=== PATIENT | male | born 1935 | race Caucasian/White ===

== ENCOUNTER 2017-05-04 17:44 | Inpatient (IN) | payer MEDICARE, OTHER ==
[2017-05-04 17:44] VITALS: BMI 31.8
--- NOTE | 2017-05-04 18:07 | ED PDOC ---
"Arrival/HPI - General Historian: Patient <Alfredo Wright - Last Filed: 05/05/17 14:46> <Mindy,IJaviersarthak - Last Filed: 05/07/17 12:51> - General Chief Complaint: Shortness Of Breath Time Seen by Provider: 05/04/17 17:47 - History of Present Illness Narrative History of Present Illness (Text): 05/04/17 18:03 82 y/o male, pmh including cad with bypass/aortic valve replacement/copd/bph/htn /dm/hyperlipidemia/pud/chf?, nkda, biba c/o shortness of breath for the past 2 days. Pt. was seen by his own pmd about 2 days ago due to the complaining of exertional shortness of breath. Pt. stated that he feels really shortness of breath upon exertional today and therefore the ambulance was call. Pt. has no chest pain or palpitation, no night sweat, no dizziness, no change in vision, no rash, mild coughing, non-smoker, no URI symptoms, no other medical or psychological complaints. (Alfredo Wright) Past Medical History - Provider Review Nursing Documentation Reviewed: Yes - Infectious Disease Hx of Infectious Diseases: None - Tetanus Immunization Tetanus Immunization: Unknown - Cardiac Hx Cardiac Disorders: Yes (Cabgx2 aortic stenosis endocarditis) Hx Angina: Yes Hx Congestive Heart Failure: Yes Hx Hypertension: Yes Hx Peripheral Edema: Yes Other/Comment: aortic stenosis, endocarditis,right ankle/foot variscosities, discoloration +2 edema - Pulmonary Hx Respiratory Disorders: Yes Hx Asthma: Yes Hx Chronic Obstructive Pulmonary Disease (COPD): Yes - Neurological Hx Neurological Disorder: Yes HX Cerebrovascular Accident: Yes Other/Comment: memory loss - HEENT Hx HEENT Disorder: Yes Hx Glaucoma: Yes - Renal Hx Renal Disorder: No - Endocrine/Metabolic Hx Endocrine Disorders: Yes Hx Diabetes Mellitus Type 2: Yes - Hematological/Oncological Hx Blood Disorders: Yes (blood transfusion) - Integumentary Hx Dermatological Disorder: No - Musculoskeletal/Rheumatological Hx Falls: Yes - Gastrointestinal Hx Gastrointestinal Disorders: Yes (CONSTIPATION) Hx Gastroesophageal Reflux: Yes - Genitourinary/Gynecological Hx Genitourinary Disorders: Yes (ERECTILE DYSFUNCTION) Hx Prostate Problems: Yes - Psychiatric Hx Psychophysiologic Disorder: Yes (MEMORY LOSS) Hx Anxiety: Yes Hx Depression: Yes Hx Substance Use: No - Past Surgical History Past Surgical History: Unable to Obtain - Surgical History Hx Cardiac Catheterization: Yes Hx Open Heart Surgery: Yes (CABG) Hx Valve Replacement: Yes (aortic valve) - Anesthesia Hx Anesthesia: Yes Hx Anesthesia Reactions: No Hx Malignant Hyperthermia: No - Suicidal Assessment Feels Threatened In Home Enviroment: No <Alfredo Wright - Last Filed: 05/05/17 14:46> Family/Social History - Physician Review Nursing Documentation Reviewed: Yes Family/Social History: Unknown Family HX Smoking Status: Never Smoked Hx Alcohol Use: No Hx Substance Use: No Hx Substance Use Treatment: No <Alfredo Wright - Last Filed: 05/05/17 14:46> Allergies/Home Meds <Alfredo Wright - Last Filed: 05/05/17 14:46> <Lilian Guillen - Last Filed: 05/07/17 12:51> Allergies/Adverse Reactions: Allergies No Known Allergies Allergy (Verified 05/04/17 17:55) Home Medications: Home Meds Medication Instructions Recorded Confirmed Albuterol Sulfate [Proair Hfa] 0.09 mg IH PRN PRN 05/04/17 05/04/17 Aspirin [Lo-Dose Aspirin EC] 81 mg PO DAILY 05/04/17 05/04/17 Atorvastatin [Lipitor] 40 mg PO HS 05/04/17 05/04/17 Clopidogrel [Plavix] 75 mg PO HS 05/04/17 05/04/17 Esomeprazole Magnesium [Nexium] 40 mg PO DAILY 05/04/17 05/04/17 Fluoxetine HCl 40 mg PO DAILY 05/04/17 05/04/17 Gabapentin [Neurontin] 300 mg PO HS 05/04/17 05/04/17 Latanoprost 0.005% Opht [Xalatan 1 drop HS 05/04/17 05/04/17 Opht] Metformin HCl [Glucophage] 850 mg PO BID 05/04/17 05/04/17 Mirtazapine [Remeron] 15 mg PO DAILY 05/04/17 05/04/17 Montelukast Sodium [Singulair] 10 mg PO HS 05/04/17 05/04/17 Mv,Min10/Folic Acid/D3/Ala/Lut 1 tab PO DAILY 05/04/17 05/04/17 [Strovite One Caplet] Niacinamide [Niacin] 500 mg PO BID 05/04/17 05/04/17 [id number]-8-[id number] Ethyl Esters 1 GM 2 gm PO DAILY 05/04/17 05/04/17 [Lovaza] Potassium Chloride [K-Tab ER] 10 meq PO DAILY 05/04/17 05/04/17 Zolpidem Tartrate [Ambien] 10 mg PO HS 05/04/17 05/04/17 Furosemide [Lasix] 20 mg PO 2XW 05/07/17 05/07/17 Review of Systems - Review of Systems Constitutional: absent: Fatigue, Fevers Eyes: absent: Vision Changes ENT: absent: Hearing Changes Respiratory: SOB. absent: Cough, Sputum, Wheezing Cardiovascular: absent: Chest Pain Gastrointestinal: absent: Abdominal Pain, Nausea, Vomiting Musculoskeletal: absent: Arthralgias, Back Pain Skin: absent: Rash, Skin Lesions Neurological: absent: Headache, Dizziness Psychiatric: absent: Anxiety, Depression, Suicidal Ideation <Alfredo Wright Q - Last Filed: 05/05/17 14:46> Physical Exam Vital Signs Reviewed: Yes Temperature: Afebrile Blood Pressure: Normal Pulse: Regular Respiratory Rate: Normal Appearance: Positive for: Well-Appearing, Non-Toxic Pain Distress: None Mental Status: Positive for: Alert and Oriented X 3 - Systems Exam Head: Present: Atraumatic, Normocephalic Pupils: Present: PERRL Extroacular Muscles: Present: EOMI Conjunctiva: Present: Normal Mouth: Present: Moist Mucous Membranes Neck: Present: Normal Range of Motion Respiratory/Chest: Present: Clear to Auscultation, Good Air Exchange, Rales. No : Respiratory Distress, Accessory Muscle Use, Wheezes, Decreased Breath Sounds, Retracting, Rhonchi Cardiovascular: Present: Regular Rate and Rhythm, Normal S1, S2, Other (1+ pedal edema noted bilaterally, there is dark brown skin pigmentation appear to be venuous insufficiency noted on the LLE. ). No: Murmurs Abdomen: Present: Normal Bowel Sounds. No: Tenderness, Distention, Peritoneal Signs, Rebound, Guarding Back: Present: Normal Inspection Upper Extremity: Present: Normal Inspection. No: Cyanosis, Edema Lower Extremity: Present: Normal Inspection. No: Edema Neurological: Present: GCS=15, Speech Normal, Motor Func Grossly Intact, Gait Normal, Memory Normal Skin: Present: Warm, Dry, Normal Color. No: Rashes Lymphatic: No: Cervical Adenopathy Psychiatric: Present: Alert, Oriented x 3, Normal Insight, Normal Concentration <Alfredo Wright Q - Last Filed: 05/05/17 14:46> Vital Signs Temp Pulse Resp BP Pulse Ox 05/05/17 00:00 97.8 F 79 19 125/50 L 98 05/04/17 22:57 98 F 75 18 105/48 L 99 05/04/17 19:42 77 18 105/53 L 99 05/04/17 18:30 16 05/04/17 17:53 97.8 F 93 H 18 111/59 L 100 Medical Decision Making - Lab Interpretations Interpretation: Abnormal lab values (Bun 26, Mag 1.3, BNP 2230) - RAD Interpretation Management Trainer: Radiologist - EKG Interpretation Interpreted by ED Physician: Yes Type: 12 lead EKG <Alfredo Wright Q - Last Filed: 05/05/17 14:46> <Lilian Guillen - Last Filed: 05/07/17 12:51> ED Course and Treatment: 05/04/17 18:08 -labs/troponin/BNP/ua -EKG -CT angiogram -Bilateral lower extremities venuous doppler -Nasal cannula 4L oxygen/aspirin 325mg po -observe and reassess 05/04/17 20:38 -EKG: NSR @ 84 BPM, no ST elevation or depression, T wave inversion on the lead V1-V2. -Bilateral lower extremities venuos doppler: as per preliminary report, no acute DVT -CT Angiogram: - Bilateral pleural effusions. Otherwise, no evidence of significant acute process. No evidence of pulmonary embolism. Cardiomegaly, with evidence of prior cardiac surgery and findings suggestive of underlying pulmonary hypertension. - Mild mediastinal lymphadenopathy. This is a nonspecific finding, with no evidence of diffuse lymphadenopathy. Consider followup. -Labs are non-significant except Bun 26 (mildly dehydrated, will oral hydrate), Magnesium 1.3 (Magnesium sulfate 1gm IV ordered), BNP 2230 from 3810 @ 2013 (BP on the lower end, asymptomatic on rest but SOB on exertional). -Pt. has chronic copd, will add 1 dose of duoneb and 125mg Solumedrol. However , this is likely CHF. -Case discussed with DR. Guillen including all labs/radiology result, agreed on the treatment and admission 05/04/17 22:57 -I spoke to Dr. Booker, discussed about the case/labs/radiology results and vital signs, agreed on the treatment and admission, hold lasix since he is asymptomatic on rest, request Dr. Sosa for routine culture, admit to tele. -I discussed with Dr. Guillen and he agreed on the admission order. Will put in admission order since he is off shift. (Alfredo Wright) - Lab Interpretations Lab Results: 05/04/17 18:15 05/04/17 18:15 Lab Results 05/04/17 18:15: Sodium 140, Potassium 4.2, Chloride 103, Carbon Dioxide 28, Anion Gap 13, BUN 26 H, Creatinine 1.1, Est GFR ( Amer) > 60, Est GFR ( Non-Af Amer) > 60, Random Glucose 114 H, Calcium 9.5, Magnesium 1.3 L, Total Bilirubin 0.9, AST 57, ALT 75 H, Alkaline Phosphatase 109, Lactate Dehydrogenase 590, Total Creatine Kinase 59, Troponin I < 0.01, NT-Pro-B Natriuret Pep 2230 H, Total Protein 6.5, Albumin 3.5, Globulin 3.0, Albumin/ Globulin Ratio 1.2 05/04/17 18:15: WBC 3.4 L D, RBC 3.62, Hgb 11.6 L, Hct 34.7 L, MCV 95.9, MCH 32.0, MCHC 33.4, RDW 13.9, Plt Count 154, MPV 11.0, Gran % 46.6 L, Lymph % (Auto ) 29.7, [place] % (Auto) 18.4 H, Eos % (Auto) 4.1, Baso % (Auto) 1.2, Gran # 1.60, Lymph # 1.0 L, [place] # 0.6, Eos # 0.1, Baso # 0.04 - RAD Interpretation Radiology Orders: 05/04/17 18:01 ANGIO CHEST PE PROTOCOL [CT] Stat 05/04/17 18:04 DUPLEX LOWER EXTRM VEIN BILAT [US] Stat Bilateral lower extremities venuos doppler: as per preliminary report, no acute DVT ----- CT Angiogram: No relevant prior studies available. FINDINGS: LIMITATIONS: Mild to moderate respiratory motion artifact. PULMONARY ARTERIES: Main pulmonary artery segment is enlarged, a finding which can be seen with pulmonary hypertension. Recommend clinical correlation. Exam is somewhat limited for the detection of pulmonary emboli secondary to motion artifact. Allowing for this, no definite pulmonary emboli are seen. AORTA: Exam is nondiagnostic for the detection of aortic dissection because of suboptimal enhancement of the aorta. LUNGS: Small amount of consolidation the left lung base, abutting the pleural effusion, most likely representing compressive atelectasis. Minimal scarring and emphysematous changes in the lung apices. No evidence of diffuse pulmonary vascular congestion. Patent large airways. AZIZA FRANKLIN | Final Radiology Report CONFIDENTIALITY STATEMENT This report is intended only for use by the referring physician, and only in accordance with law. If you received this in error, call [phone]. Page 2 of 2 PLEURAL SPACE: Bilateral pleural effusions, small to moderate in size. No pneumothorax is seen. HEART: Heart appears moderately enlarged. Retained epicardial pacing wires noted. Sternotomy wires and multiple mediastinal surgical clips noted, most likely from prior CABG. Prosthetic cardiac valve is in place. Coronary artery calcification. No evidence of significant pericardial effusion. BONES/JOINTS: No acute bony abnormality identified. SOFT TISSUES: No acute abnormality of the visualized soft tissues seen. LYMPH NODES: Mild mediastinal lymphadenopathy. The largest lymph node, in the subcarinal region, measures 3.5 x 2 cm. No evidence of significant axillary, hilar, or upper abdominal lymphadenopathy.. GALLBLADDER AND BILE DUCTS: Gallstones incidentally noted. No CT evidence of acute cholecystitis. IMPRESSION: - Bilateral pleural effusions. - Otherwise, no evidence of significant acute process. No evidence of pulmonary embolism. - Cardiomegaly, with evidence of prior cardiac surgery and findings suggestive of underlying pulmonary hypertension. - Mild mediastinal lymphadenopathy. This is a nonspecific finding, with no evidence of diffuse lymphadenopathy. Consider followup. - See above for remaining findings. Thank you for allowing us to participate in the care of your patient. Dictated and Authenticated by: Josephine Carmona MD 05/04/2017 8:50 PM Eastern Time ([place] & [place]) (Alfredo Wright) - EKG Interpretation EKG Interpretation (Text): 05/04/17 18:10 -EKG: NSR @ 84 BPM, no ST elevation or depression, T wave inversion on the lead V1-V2. (Alfredo Wright) - Medication Orders Current Medication Orders: Aspirin (Ecotrin) 81 mg PO DAILY [facility] Last Admin: 05/06/17 13:02 Dose: 81 mg Atorvastatin Calcium (Lipitor) 40 mg PO HS [facility] Last Admin: 05/06/17 21:50 Dose: 40 mg Bisacodyl (Dulcolax) 5 mg PO DAILY PRN PRN Reason: Constipation Clopidogrel Bisulfate (Plavix) 75 mg PO HS [facility] Last Admin: 05/06/17 21:50 Dose: 75 mg Clotrimazole (Lotrimin 1%) 0 gm TOP BID [facility] Last Admin: 05/06/17 18:25 Dose: Enoxaparin Sodium (Lovenox) 40 mg SC DAILY [facility] PRN Reason: Protocol Last Admin: 05/06/17 13:04 Dose: 40 mg Subcutaneous Administrations Document 05/06/17 13:04 (Rec: 05/06/17 13:04 [id number]) Charges for Administration # of Subcutaneous Administrations 1 Fluoxetine HCl (Prozac) 40 mg PO DAILY [facility] Last Admin: 05/06/17 13:02 Dose: 40 mg Furosemide (Lasix) 40 mg IV BID [facility] Last Admin: 05/06/17 18:01 Dose: 40 mg eMAR Start Stop Document 05/06/17 18:01 (Rec: 05/06/17 18:03 [id number]) Intravenous Solution Start Date 05/06/17 Start Time 18:03 End Date 05/06/17 End time 18:03 Total Infusion Time 0 MAR Blood Pressure Document 05/06/17 18:01 (Rec: 05/06/17 18:03 [id number]) Blood Pressure Blood Pressure (100/60-150/90) 108/59 Gabapentin (Neurontin) 300 mg PO HS [facility] PRN Reason: Protocol Last Admin: 05/06/17 21:50 Dose: 300 mg Behavioural Document 05/06/17 21:50 GC (Rec: 05/06/17 21:50 [id number] Maintenance Maintenance Dose Yes Nonmedicinal Nonmedicinal Interventions Redirect Therapeutic Communication Activity Behavior Behavior for Medication: Anxiety Re-Assess: Reassess Psych Meds Document 05/06/17 22:50 GC (Rec: 05/06/17 23:46 GC [id number]) Reassess Psych Med Effective Insulin Detemir (Levemir) 10 unit SC [facility] Last Admin: 05/06/17 22:18 Dose: Not Given Non-Admin Reason: Patient Refused MAR Blood Glucose Document 05/06/17 22:18 GC (Rec: 05/06/17 22:18 [id number] Blood Glucose Finger Stick Blood Glucose (70-120) 145 Insulin Human Regular (Humulin R) 0 units SC [facility] PRN Reason: Protocol Last Admin: 05/07/17 08:52 Dose: Not Given Non-Admin Reason: Blood Sugar Parameter [facility] Blood Glucose Document 05/07/17 08:52 (Rec: 05/07/17 08:52 [id number] Blood Glucose Finger Stick Blood Glucose (70-120) 125 Latanoprost (Xalatan Opht) 1 ml OU [facility] Last Admin: 05/06/17 21:50 Dose: 1 ml Levalbuterol HCl (Xopenex) 0.63 mg IH [id number] [facility] Last Admin: 05/07/17 08:31 Dose: 0.63 mg Lisinopril (Zestril) 2.5 mg PO DAILY [facility] Last Admin: 05/06/17 13:08 Dose: 2.5 mg [facility] Pulse and Blood Pressure Document 05/06/17 13:08 (Rec: 05/06/17 13:08 [id number] Pulse Pulse Rate (60-90) 87 Blood Pressure Blood Pressure (100/60-150/90) 118/54 Metformin HCl (Glucophage) 850 mg PO BID [facility] Last Admin: 05/06/17 18:00 Dose: 850 mg Mirtazapine (Remeron) 15 mg PO DAILY [facility] Last Admin: 05/06/17 13:05 Dose: 15 mg Montelukast Sodium (Singulair) 10 mg PO [facility] Last Admin: 05/06/17 21:50 Dose: 10 mg Non-Formulary Medication (Mv,Min10/Folic Acid/D3/Ala/Lut [Strovite One Caplet]) 1 tab PO DAILY [facility] Last Admin: 05/06/17 13:05 Dose: Non-Formulary Medication (Niacinamide [Niacin]) 500 mg PO BID [facility] Last Admin: 05/06/17 17:55 Dose: [id number] Ethyl Esters (Lovaza) 2 gm PO DAILY [facility] Last Admin: 05/06/17 13:03 Dose: 2 gm Pantoprazole Sodium (Protonix Ec Tab) 40 mg PO 0600 [facility] Last Admin: 05/07/17 04:59 Dose: 40 mg Potassium Chloride (Klor-Con 10) 10 meq PO DAILY [facility] Last Admin: 05/05/17 11:20 Dose: Zolpidem Tartrate (Ambien) 5 mg PO HS PRN PRN Reason: Insomnia Discontinued Medications Albuterol/Ipratropium (Duoneb 3 Mg/0.5 Mg (3 Ml) Ud) 3 ml IH STAT STA Stop: 05/04/17 21:11 Last Admin: 05/04/17 23:28 Dose: 3 ml Bisacodyl (Dulcolax) 5 mg PO ONCE ONE Stop: 05/06/17 12:05 Last Admin: 05/06/17 13:15 Dose: Bisacodyl (Dulcolax) 5 mg PO ONCE ONE Stop: 05/06/17 12:09 Last Admin: 05/06/17 13:02 Dose: 5 mg Furosemide (Lasix) 20 mg IVP DAILY [facility] Furosemide (Lasix) 20 mg IVP DAILY [facility] Last Admin: 05/05/17 11:21 Dose: Furosemide (Lasix) 20 mg IVP STAT STA Stop: 05/05/17 09:21 Last Admin: 05/05/17 10:16 Dose: 20 mg MAR Blood Pressure Document 05/05/17 10:16 JEROD (Rec: 05/05/17 10:17 JEROD [id number]) Blood Pressure Blood Pressure (100/60-150/90) 109/46 IVP Administration Document 05/05/17 10:16 JEROD (Rec: 05/05/17 10:17 JEROD [id number]) Charges for Administration # of IVP Administrations 1 Furosemide (Lasix) 40 mg IVP STAT STA Stop: 05/05/17 12:38 Last Admin: 05/05/17 13:42 Dose: 40 mg MAR Blood Pressure Document 05/05/17 13:42 JEROD (Rec: 05/05/17 13:43 JEROD [id number]) Blood Pressure Blood Pressure (100/60-150/90) 124/56 IVP Administration Document 05/05/17 13:42 JEROD (Rec: 05/05/17 13:43 JEROD [id number]) Charges for Administration # of IVP Administrations 1 Magnesium Sulfate/Dextrose (Magnesium Sulfate 1 Gm/100 Ml D5w) 1 gm in 100 mls @ 100 mls/hr IVPB ONCE ONE Stop: 05/04/17 21:16 Last Admin: 05/04/17 20:49 Dose: 100 mls/hr eMAR Start Stop Document 05/04/17 20:49 HI (Rec: 05/04/17 20:49 HI [id number]) Intravenous Solution Start Date 05/04/17 Start Time 20:49 Insulin Detemir (Levemir) 10 unit SC BID [facility] Last Admin: 05/05/17 22:20 Dose: Levalbuterol HCl (Xopenex) 0.63 mg IH QID [facility] Last Admin: 05/05/17 11:43 Dose: 0.63 mg Methylprednisolone (Solu-Medrol) 125 mg IVP STAT STA Stop: 05/04/17 21:10 Last Admin: 05/04/17 23:28 Dose: 125 mg IVP Administration Document 05/04/17 23:28 HI (Rec: 05/04/17 23:28 [facility] [id number]) Charges for Administration # of IVP Administrations 1 Sodium Polystyrene Sulfonate (Kayexalate Susp) 30 gm PO ONCE ONE Stop: 05/05/17 10:45 Last Admin: 05/05/17 12:00 Dose: Zolpidem Tartrate (Ambien) 10 mg PO HS [facility] PRN Reason: Protocol - PA / BEHAVIORAL SPECIALIST / Resident Statement / has reviewed & agrees with the documentation as recorded. <Alfredo Wright - Last Filed: 05/05/17 14:46> - PA / BEHAVIORAL SPECIALIST / Resident Statement / has reviewed & agrees with the documentation as recorded. <Lilian Guillen - Last Filed: 05/07/17 12:51> Disposition/Present on Arrival - Present on Arrival Any Indicators Present on Arrival: No History of DVT/PE: No History of Uncontrolled Diabetes: No Urinary Catheter: No History of Decub. Ulcer: No History Surgical Site Infection Following: None - Disposition Have Diagnosis and Disposition been Completed?: Yes Disposition Time: 20:40 Patient Plan: Admission, Telemetry <Alfredo Wright - Last Filed: 05/05/17 14:46> <Lilian Guillen - Last Filed: 05/07/17 12:51> - Disposition Diagnosis: CHF (congestive heart failure), Hypomagnesemia, Shortness of breath on exertion , Pleural effusion Disposition: HOSPITALIZED Patient Problems: Current Active Problems Problem Status Onset CHF (congestive heart failure) Acute Hypomagnesemia Acute Pleural effusion Acute Shortness of breath on exertion Acute Condition: GUARDED"
[2017-05-04 18:25] LABS: BASO # 0.04 K/mm3 (0.0-2.0); BASO % 1.2 % (0.0-3.0); EOS # 0.1 (0.0-0.7); EOS % 4.1 % (1.5-5.0); GRAN # 1.6 (1.4-6.5); GRAN % 46.6 % (50.0-68.0); HEMATOCRIT 34.7 % (42.0-52.0); LYMPH % 29.7 % (22.0-35.0); MEAN CELL VOLUME 95.9 fl (80.0-105.0); MEAN CORPUSCULAR HGB CONC 33.4 g/dl (31.0-37.0); MONO # 0.6 (0.1-0.6); MONO % 18.4 % (1.0-6.0); RED CELL DISTRIBUTION WIDTH 13.9 % (11.5-14.5); WHITE BLOOD COUNT 3.4 10^3/ul (4.5-11.0)
[2017-05-04 18:42] LABS: ALB/GLOB RATIO 1.2 (1.1-1.8); ALKALINE PHOSPHATASE 109 U/L (38-126); ALT/SGPT 75 U/L (7-56); AST/SGOT 57 U/L (17-59); BILIRUBIN,TOTAL 0.9 mg/dL (0.2-1.3); BLOOD UREA NITROGEN 26 mg/dL (7-21); CALCIUM 9.5 mg/dL (8.4-10.5); CARBON DIOXIDE 28 mmol/L (21-33); CHLORIDE 103 mmol/L (98-107); GFR AFRICAN-AMERICAN > 60; GLUCOSE,RANDOM 114 mg/dL (70-110); TOTAL PROTEIN 6.5 g/dL (5.8-8.3)
[2017-05-04 19:02] LABS: SODIUM 140 mmol/L (132-148)
[2017-05-04 19:03] LABS: POTASSIUM 4.2 mmol/L (3.6-5.0)
[2017-05-04] MEDS ORDERED: Iodixanol 320 MG/ML 100 ML BOTTLE IV ONE (19:07)
[2017-05-04 19:20] LABS: MAGNESIUM 1.3 mg/dL (1.7-2.2)
[2017-05-04 19:48] LABS: TROPONIN I < 0.01 ng/mL
[2017-05-04] MEDS ORDERED: Magnesium Sulfate 1 gm in D5W 1 GM/100 ML BAG IVPB ONE (20:17)
--- NOTE | 2017-05-04 20:50 | CT ---
EXAM: CT Angiography Chest With Intravenous Contrast EXAM DATE/TIME: 05/04/2017 6:01 PM CLINICAL HISTORY: 82 years old, male; Signs and symptoms; Shortness of breath; Additional info: Shortness of breath. R/O p. E TECHNIQUE: Axial computed tomographic angiography images of the chest with intravenous contrast using pulmonary embolism protocol. All CT scans at this facility use one or more dose reduction techniques, viz.: automated exposure control; ma/kV adjustment in patient size (including targeted exams where dose is matched to indication; i.e. head); or iterative reconstruction technique. MIP reconstructed images were created and reviewed. Coronal and sagittal reformatted images were created and reviewed. CONTRAST: 100 mL of [id number] administered intravenously. COMPARISON: No relevant prior studies available. FINDINGS: LIMITATIONS: Mild to moderate respiratory motion artifact. PULMONARY ARTERIES: Main pulmonary artery segment is enlarged, a finding which can be seen with pulmonary hypertension. Recommend clinical correlation. Exam is somewhat limited for the detection of pulmonary emboli secondary to motion artifact. Allowing for this, no definite pulmonary emboli are seen. AORTA: Exam is nondiagnostic for the detection of aortic dissection because of suboptimal enhancement of the aorta. LUNGS: Small amount of consolidation the left lung base, abutting the pleural effusion, most likely representing compressive atelectasis. Minimal scarring and emphysematous changes in the lung apices. No evidence of diffuse pulmonary vascular congestion. Patent large airways. PLEURAL SPACE: Bilateral pleural effusions, small to moderate in size. No pneumothorax is seen. HEART: Heart appears moderately enlarged. Retained epicardial pacing wires noted. Sternotomy wires and multiple mediastinal surgical clips noted, most likely from prior CABG. Prosthetic cardiac valve is in place. Coronary artery calcification. No evidence of significant pericardial effusion. BONES/JOINTS: No acute bony abnormality identified. SOFT TISSUES: No acute abnormality of the visualized soft tissues seen. LYMPH NODES: Mild mediastinal lymphadenopathy. The largest lymph node, in the subcarinal region, measures 3.5 x 2 cm. No evidence of significant axillary, hilar, or upper abdominal lymphadenopathy.. GALLBLADDER AND BILE DUCTS: Gallstones incidentally noted. No CT evidence of acute cholecystitis. IMPRESSION: - Bilateral pleural effusions. - Otherwise, no evidence of significant acute process. No evidence of pulmonary embolism. - Cardiomegaly, with evidence of prior cardiac surgery and findings suggestive of underlying pulmonary hypertension. - Mild mediastinal lymphadenopathy. This is a nonspecific finding, with no evidence of diffuse lymphadenopathy. Consider followup. - See above for remaining findings.
[2017-05-04] MEDS ORDERED: Albuterol-Ipratrop 3 mg / 0.5 (3 ml) UD IH STA (21:10)
--- NOTE | 2017-05-05 08:53 | US ---
HISTORY: Leg pain and swelling. Evaluate for DVT PHYSICIAN(S): Santos Johansen MD. TECHNIQUE: Duplex sonography and color-flow Doppler with graded compression were used to evaluate the deep venous systems of both lower extremities. FINDINGS: The visualized deep venous systems of both lower extremities are sonographically normal and compressible. Normal wave forms and augmentation are seen. There is no sonographic evidence for deep venous thrombosis in the visualized segments of both lower extremities. IMPRESSION: No sonographic evidence for deep venous thrombosis in the visualized segments of both lower extremities.
[2017-05-05 09:40] LABS: GRAN # 2.28 (1.4-6.5); GRAN % 84.8 % (50.0-68.0); HEMATOCRIT 37.9 % (42.0-52.0); LYMPH # 0.4 (1.2-3.4); LYMPH % 14.1 % (22.0-35.0); MEAN CELL VOLUME 95.7 fl (80.0-105.0); MEAN CORPUSCULAR HEMOGLOBIN 32.1 pg (25.0-35.0); MEAN CORPUSCULAR HGB CONC 33.5 g/dl (31.0-37.0); MEAN PLATELET VOLUME 11.3 fl (7.0-11.0); MONO % 1.1 % (1.0-6.0); RED CELL DISTRIBUTION WIDTH 13.8 % (11.5-14.5)
[2017-05-05 09:48] LABS: WHITE BLOOD COUNT 2.7 10^3/ul (4.5-11.0)
[2017-05-05 09:59] LABS: BLOOD UREA NITROGEN 28 mg/dL (7-21); CALCIUM 9.6 mg/dL (8.4-10.5); CARBON DIOXIDE 29 mmol/L (21-33); CHLORIDE 102 mmol/L (98-107); GFR AFRICAN-AMERICAN > 60; POTASSIUM 5.1 mmol/L (3.6-5.0); SODIUM 140 mmol/L (132-148); TROPONIN I < 0.01 ng/mL
[2017-05-05] MEDS ORDERED: D3 PO SCH (10:00)
[2017-05-05] MEDS ORDERED: LUT PO SCH (10:00)
[2017-05-05] MEDS ORDERED: MV MIN10 PO SCH (10:00)
[2017-05-05] MEDS ORDERED: NIACINAMIDE 500 MG PO SCH (10:00)
[2017-05-05] MEDS ORDERED: FOLIC ACID PO SCH (10:00)
[2017-05-05] MEDS ORDERED: Potassium Chloride 10 mEq ER Tab PO SCH (10:00)
[2017-05-05] MEDS ORDERED: ALA PO SCH (10:00)
[2017-05-05 10:15] LABS: GLUCOSE,RANDOM 303 mg/dL (70-110)
[2017-05-05] MEDS: Enoxaparin 40 mg Syringe SC SCH (10:18)
[2017-05-05 10:37] LABS: ALB/GLOB RATIO 1.2 (1.1-1.8); ALKALINE PHOSPHATASE 131 U/L (38-126); ALT/SGPT 71 U/L (7-56); AST/SGOT 54 U/L (17-59); BILIRUBIN,TOTAL 1.2 mg/dL (0.2-1.3); MAGNESIUM 1.7 mg/dL (1.7-2.2)
[2017-05-05] MEDS ORDERED: Sod Polystyrene Sulf 15 gm/60 ml Susp PO ONE (10:44)
[2017-05-05] MEDS: NIACINAMIDE 500 MG PO SCH ×2 (11:00→17:35)
[2017-05-05] MEDS: Levalbuterol 0.63 MG/3 ML Inhal Soln UD IH SCH ×4 (11:37→19:43)
[2017-05-05] MEDS: LUT PO SCH (12:00)
[2017-05-05] MEDS: FOLIC ACID PO SCH (12:00)
[2017-05-05] MEDS: D3 PO SCH (12:00)
[2017-05-05] MEDS: MV MIN10 PO SCH (12:00)
[2017-05-05] MEDS: ALA PO SCH (12:00)
[2017-05-05] MEDS: Omega-3-Acid Ethyl Esters 1 GM Cap PO SCH (12:05)
[2017-05-05] MEDS: Insulin Regular 1 UNITS/0.01 ML ML SC SCH ×4 (12:10→22:01)
--- NOTE | 2017-05-05 14:34 | CT ---
PROCEDURE: CT HEAD WITHOUT CONTRAST. HISTORY: syncope COMPARISON: Unenhanced head CT exams 09/01/2012 and 05/11/2014. TECHNIQUE: Axial computed tomography images were obtained through the head/brain without intravenous contrast. Radiation dose: Total exam DLP = 678.13 mGy-cm. This CT exam was performed using one or more of the following dose reduction techniques: Automated exposure control, adjustment of the mA and/or kV according to patient size, and/or use of iterative reconstruction technique. FINDINGS: HEMORRHAGE: No intracranial hemorrhage. BRAIN: Diffuse cerebral atrophy and chronic microangiopathy are reiterated, with microangiopathy pattern potentially slightly increased. No mass is identified or suspicious extra-axial fluid collection in the midline brain and appears diffusely unremarkable nevertheless. Posterior fossa contents remain unremarkable including the brainstem. A punctate granuloma seen at the left frontal vertex once again as compared prior head CT 09/01/2012, partially volume averaged out of the upper brain and head CT 05/11/2014. VENTRICLES: Unremarkable. No hydrocephalus. CALVARIUM: Unremarkable. PARANASAL SINUSES: Unremarkable as visualized. No significant inflammatory changes. MASTOID AIR CELLS: Unremarkable as visualized. No inflammatory changes. OTHER FINDINGS: None. IMPRESSION: No definite acute intracranial findings by standard CT criteria. Follow-up CT or MRI can be performed as clinically warranted. Marginally increased in chronic microangiopathy with stable diffuse cerebral atrophy appreciated.
--- NOTE | 2017-05-05 16:54 | RAD ---
HISTORY: Shortness of Breath. COMPARISON: Comparison is made to 05/11/2014 TECHNIQUE: Chest PA and lateral FINDINGS: LUNGS: No evidence of new infiltrate or consolidation in the lungs. Mild pulmonary vascular congestion noted. PLEURA: No significant pleural effusion identified. No pneumothorax apparent. CARDIOVASCULAR: Mild cardiomegaly. Postsurgical changes noted at the cardiac silhouette and post sternotomy changes are again noted. OSSEOUS STRUCTURES: No significant abnormalities. VISUALIZED UPPER ABDOMEN: Normal. OTHER FINDINGS: None. IMPRESSION: Mild cardiomegaly and mild pulmonary vascular congestion.
--- NOTE | 2017-05-05 18:26 | US ---
PROCEDURE: Bilateral carotid artery duplex ultrasound HISTORY: Carotid stenosis syncope. PHYSICIAN(S): Santos Johansen MD. TECHNIQUE: Duplex sonography and color-flow Doppler were used to evaluate the carotid bifurcations and limited segments of the vertebral arteries bilaterally. FINDINGS: There is mild smooth heterogeneous plaque noted at the carotid bifurcations bilaterally. The peak systolic velocity in the proximal right internal carotid artery is 93 cm/sec. This corresponds to a 20 to 39% proximal right ICA stenosis. Normal systolic velocities are noted in the proximal right external carotid artery. There is antegrade flow in the right vertebral artery. The peak systolic velocity in the proximal left internal carotid artery is 100 cm/sec. This corresponds to a 20 to 39% proximal left ICA stenosis. Normal systolic velocities are noted in the proximal left external carotid artery. There is blunted antegrade flow in the small left vertebral artery. IMPRESSION: 1. Bilateral 20-39% proximal ICA stenoses. 2. Antegrade flow in both vertebral arteries.
[2017-05-05] MEDS ORDERED: Insulin Detemir 100 units/ml Vial (Levemir) SC SCH (18:45)
[2017-05-05] MEDS: Latanoprost 2.5 ml Opht Soln OU SCH (21:20)
[2017-05-05] MEDS ORDERED: Latanoprost 2.5 ml Opht Soln OU SCH (22:00)
[2017-05-05] MEDS: Insulin Detemir 100 units/ml Vial (Levemir) SC SCH (22:02)
--- NOTE | 2017-05-05 23:40 | CARD ---
APPROVED REPORT EKG Measurement Heart [id number] <Conclusion> Normal sinus rhythm Possible Left atrial enlargement Right superior axis deviation Inferior-posterior infarct, age undetermined Abnormal ECG
[2017-05-06] MEDS: Levalbuterol 0.63 MG/3 ML Inhal Soln UD IH SCH ×4 (01:26→19:41)
--- NOTE | 2017-05-06 03:10 | CON ---
DATE: 05/05/2017 LOCATION: The patient is in room 377, bed 2. REASON FOR CONSULTATION: Shortness of breath, history of COPD, history of AVR and mitral valve repair with a ring, hypertension, diabetes, hyperlipidemia, and shortness of breath. HISTORY OF PRESENT ILLNESS: An 82-year-old male known case of coronary artery disease status post one-vessel bypass surgery left radial to RCA, status post aortic valve replacement with bioprosthetic aortic valve and mitral valve repair with a ring placement, hypertension, diabetes, hyperlipidemia, peripheral neuropathy, dementia and adult deficit attention deficiency syndrome, admitted with shortness of breath of 2 days' duration. Denies chest pain or palpitation. Denies PND. PAST MEDICAL HISTORY: Positive for coronary artery bypass, one vessel, left radial to RCA; AVR; mitral valve repair with a ring in 2006; history of diabetes; hypertension; hyperlipidemia; back surgery; laminectomy; peripheral neuropathy; dementia; adult deficit attention deficiency syndrome. PERSONAL HISTORY: Denies smoking. Denies drinking. ALLERGIES: THE PATIENT HAS NO ALLERGIES. HOME MEDICATIONS: Metformin 850 b.i.d., Lasix 40 daily, potassium 10 daily, Lipitor 40 daily, enalapril 5 mg daily, aspirin 81 mg daily and Plavix 75 mg daily. PHYSICAL EXAMINATION: VITAL SIGNS: Blood pressure 108/48, respiration 20, pulse 81 and temperature 98.4. HEENT: Head is normocephalic. Eyes pupils normal. Conjunctivae slightly pale. NECK: JVP low. Carotid equal. THORAX: AP diameter normal. LUNGS: Few basal rales. CARDIOVASCULAR: S1 and S2. Systolic murmur, grade 2/6. No rub. ABDOMEN: Soft and nontender. No organomegaly. Bowel sounds normal. EXTREMITIES: No clubbing. No cyanosis. LABORATORY DATA: Sodium 140, potassium 5.1, BUN 28, creatinine 1.1. Random sugar 303, yesterday sugar was 114. Troponin x2 less than 0.01. AST 54, ALT 71, TSH 0.20. CT of the chest showed bilateral pleural effusions, cardiomegaly, underlying pulmonary hypertension, no evidence of pulmonary embolism. EKG showed sinus rhythm with occasional premature ventricular complexes, RVCD. Chest x-ray not done on admission. Chest x-ray ordered for today done, showed mild congestive heart failure. DIAGNOSES: Congestive heart failure, left ventricular systolic dysfunction, coronary artery disease status post one-vessel coronary artery bypass surgery, aortic valve replacement, mitral valve repair with a ring, hypertension, hyperlipidemia, diabetes mellitus, peripheral neuropathy, history of dementia, history of adult deficit attention deficiency syndrome. The patient had echocardiogram on 08/29/2013, which showed ejection fraction of 50-55%, mild left ventricular hypertrophy. showed mild aortic stenosis, mitral annuloplasty, mitral valve ring at place, moderate mitral valve stenosis, moderate tricuspid regurgitation, right ventricular systolic pressure of 50 to 60 mmHg, suggestive of moderate pulmonary hypertension. PLAN: The patient received 20 mg IV Lasix. We will put 40 mg IV Lasix b.i.d., aspirin 81 mg daily, potassium 10 daily, metformin 850 b.i.d., Lipitor 40 daily, Lovenox 40 subq daily, gabapentin 300 mg at bedtime, Plavix 75 mg daily, Protonix 40 daily, Singulair 10 mg at bedtime, hand nebulizer therapy with Xopenex, lisinopril 2.5 mg daily. We will also do an echocardiogram and we will also do IV Lexiscan stress test, and we will follow with you. Guru Khan MD
[2017-05-06] MEDS: Pantoprazole 40 mg EC Tab PO SCH (05:10)
[2017-05-06 07:06] LABS: BASO # 0.01 K/mm3 (0.0-2.0); BASO % 0.1 % (0.0-3.0); EOS % 0.4 % (1.5-5.0); GRAN # 7.42 (1.4-6.5); GRAN % 77.7 % (50.0-68.0); LYMPH # 1.3 (1.2-3.4); LYMPH % 13.5 % (22.0-35.0); MEAN CELL VOLUME 95.4 fl (80.0-105.0); MEAN CORPUSCULAR HEMOGLOBIN 31.5 pg (25.0-35.0); MONO # 0.8 (0.1-0.6); MONO % 8.3 % (1.0-6.0); WHITE BLOOD COUNT 9.6 10^3/ul (4.5-11.0)
[2017-05-06 07:20] LABS: BLOOD UREA NITROGEN 41 mg/dL (7-21); CALCIUM 9.1 mg/dL (8.4-10.5); CARBON DIOXIDE 30 mmol/L (21-33); CHLORIDE 102 mmol/L (98-107); GFR AFRICAN-AMERICAN > 60; GLUCOSE,RANDOM 128 mg/dL (70-110); MAGNESIUM 1.7 mg/dL (1.7-2.2); PHOSPHOROUS 4.7 mg/dL (2.5-4.5); POTASSIUM 4.2 mmol/L (3.6-5.0); SODIUM 139 mmol/L (132-148)
[2017-05-06 08:04] LABS: FREE T4 1.32 ng/dL (0.78-2.19)
[2017-05-06 08:18] LABS: T3 0.77 ng/mL (0.97-1.69); THYROID STIMULATING HORMONE 0.13 mIU/mL (0.46-4.68)
[2017-05-06] MEDS: Insulin Regular 1 UNITS/0.01 ML ML SC SCH ×4 (08:44→22:19)
[2017-05-06] MEDS ORDERED: Aminophylline 25 mg/ml Inj ONE (09:06)
[2017-05-06] MEDS ORDERED: Bisacodyl 5mg EC Tab PO ONE ×2 (12:04→12:08)
[2017-05-06] MEDS: Omega-3-Acid Ethyl Esters 1 GM Cap PO SCH (13:03)
[2017-05-06] MEDS: Enoxaparin 40 mg Syringe SC SCH (13:04)
[2017-05-06] MEDS: ALA PO SCH (13:05)
[2017-05-06] MEDS: D3 PO SCH (13:05)
[2017-05-06] MEDS: NIACINAMIDE 500 MG PO SCH ×2 (13:05→17:55)
[2017-05-06] MEDS: FOLIC ACID PO SCH (13:05)
[2017-05-06] MEDS: LUT PO SCH (13:05)
[2017-05-06] MEDS: MV MIN10 PO SCH (13:05)
--- NOTE | 2017-05-06 13:07 | PN ---
DATE:05/06/2017 REASON FOR CONSULTATION AND FOLLOWUP: Cardiac evaluation, history of AVR, mitral valve repair, diabetes, hypertension, hyperlipidemia, cardiac evaluation for shortness of breath. The patient denies any chest pain, shortness of breath or any palpitation. Now at rest, does not feel short of breath. PHYSICAL EXAMINATION: VITAL SIGNS: Temperature afebrile, heart rate 83, and blood pressure 119/94. HEENT: PERRLA. Extraocular muscles intact. NECK: Supple. No carotid bruits or thyromegaly. CHEST: Clear to auscultation. HEART: S1 and S2 regular. ABDOMEN: Soft. EXTREMITIES: Clubbing and cyanosis negative. LABORATORY DATA: Blood workup as follows: WBC 9.6, hemoglobin 10.9, hematocrit 33.0, and platelet count 159. Chemistry shows sodium 130, potassium 4.2, chloride 102, carbon dioxide 30, anion gap of 11, BUN 41, and creatinine 1.3. TSH 0.13. IMPRESSION: An 82-year-old male with past medical history of coronary artery disease, one-vessel bypass left radial to right coronary artery, aortic valve replacement, mitral valve repair in 2006, history of diabetes, hypertension, hyperlipidemia, back surgery, laminectomy, and peripheral neuropathy, came in with shortness of breath. Last echo 2013 showed ejection fraction of 50% to 55%, mild ventricular hypertrophy, mild aortic stenosis, mitral annuloplasty, mitral valve ring placed, moderate mitral valve stenosis, moderate tricuspid regurgitation, right ventricular systolic pressure to 60. RECOMMENDATIONS: Admitted with CHF. Continue Lasix b.i.d. Continue supplemental potassium. Continue metformin. Continue Lipitor. We will get a stress test today. The patient underwent Lexiscan today. No ischemia noted on the stress component for nuclear component. In between, continue current medical treatment. We will follow with you. Thank you Dr. Booker for providing us the opportunity in taking care of the patient, Emory Arboleda. Guru Sosa MD
--- NOTE | 2017-05-06 15:00 | CP.PCM.CON ---
<Bonita Smith - Last Filed: 05/06/17 16:06> History of Present Illness - History of Present Illness History of Present Illness: Podiatry consult note - Dr. Kendall 82 y/o male seen and evaluated at bedside with attending Dr. Kendall for right foot 5th digit pain. Patient states that he had some discomfort to his right foot and wanted to make sure nothing was there. Patient denies of any other pedal complains at this time. Patient denies of any recent F/N/V/C/SOB/CP today. Review of Systems - Constitutional Constitutional: As Per HPI Past Patient History - Infectious Disease Hx of Infectious Diseases: None - Tetanus Immunizations Tetanus Immunization: Unknown - Past Medical History & Family History Past Medical History?: Yes - Past Social History Smoking Status: Never Smoked - CARDIAC Hx Hypercholesterolemia: Yes Hx Hypertension: Yes - PULMONARY Hx Asthma: Yes Hx Chronic Obstructive Pulmonary Disease (COPD): Yes - NEUROLOGICAL Hx Neurological Disorder: Yes HX Cerebrovascular Accident: Yes Other/Comment: memory loss - HEENT Hx HEENT Problems: Yes Hx Glaucoma: Yes - RENAL Hx Chronic Kidney Disease: No - ENDOCRINE/METABOLIC Hx Endocrine Disorders: Yes Hx Diabetes Mellitus Type 2: Yes - HEMATOLOGICAL/ONCOLOGICAL Hx Blood Disorders: Yes (blood transfusion) - INTEGUMENTARY Hx Dermatological Problems: No - MUSCULOSKELETAL/RHEUMATOLOGICAL Hx Falls: Yes - GASTROINTESTINAL Hx Gastrointestinal Disorders: Yes (CONSTIPATION) Hx Gastroesophageal Reflux: Yes - GENITOURINARY/GYNECOLOGICAL Hx Genitourinary Disorders: Yes (ERECTILE DYSFUNCTION) Hx Prostate Problems: Yes - PSYCHIATRIC Hx Psychophysiologic Disorder: Yes (MEMORY LOSS) Hx Anxiety: Yes Hx Depression: Yes Hx Substance Use: No - SURGICAL HISTORY Hx Coronary Artery Bypass Graft: Yes (aortic valve replacement) - ANESTHESIA Hx Anesthesia: Yes Hx Anesthesia Reactions: No Hx Malignant Hyperthermia: No Meds Allergies/Adverse Reactions: Allergies Allergy/AdvReac Type Severity Reaction Status Date / Time No Known Allergies Allergy Verified 05/04/17 17:55 - Medications Medications: Current Medications Aspirin (Ecotrin) 81 mg PO DAILY [facility] Last Admin: 05/06/17 13:02 Dose: 81 mg Atorvastatin Calcium (Lipitor) 40 mg PO [facility] Last Admin: 05/05/17 21:19 Dose: 40 mg Bisacodyl (Dulcolax) 5 mg PO DAILY PRN PRN Reason: Constipation Clopidogrel Bisulfate (Plavix) 75 mg PO HS [facility] Last Admin: 05/05/17 21:19 Dose: 75 mg Enoxaparin Sodium (Lovenox) 40 mg SC DAILY [facility] PRN Reason: Protocol Last Admin: 05/06/17 13:04 Dose: 40 mg Fluoxetine HCl (Prozac) 40 mg PO DAILY [facility] Last Admin: 05/06/17 13:02 Dose: 40 mg Furosemide (Lasix) 40 mg IV BID [facility] Last Admin: 05/06/17 13:03 Dose: 40 mg Gabapentin (Neurontin) 300 mg PO HS [facility] PRN Reason: Protocol Last Admin: 05/05/17 21:19 Dose: 300 mg Insulin Detemir (Levemir) 10 unit SC HS [facility] Last Admin: 05/05/17 22:02 Dose: 10 unit Insulin Human Regular (Humulin R) 0 units SC [facility] PRN Reason: Protocol Last Admin: 05/06/17 13:01 Dose: 2 units Latanoprost (Xalatan Opht) 1 ml OU HS [facility] Last Admin: 05/05/17 21:20 Dose: 1 ml Levalbuterol HCl (Xopenex) 0.63 mg IH [id number] [facility] Last Admin: 05/06/17 13:56 Dose: 0.63 mg Lisinopril (Zestril) 2.5 mg PO DAILY [facility] Last Admin: 05/06/17 13:08 Dose: 2.5 mg Metformin HCl (Glucophage) 850 mg PO BID [facility] Last Admin: 05/06/17 13:03 Dose: 850 mg Mirtazapine (Remeron) 15 mg PO DAILY [facility] Last Admin: 05/06/17 13:05 Dose: 15 mg Montelukast Sodium (Singulair) 10 mg PO HS [facility] Last Admin: 05/05/17 21:19 Dose: 10 mg Non-Formulary Medication (Mv,Min10/Folic Acid/D3/Ala/Lut [Strovite One Caplet]) 1 tab PO DAILY [facility] Last Admin: 05/06/17 13:05 Dose: Not Given Non-Formulary Medication (Niacinamide [Niacin]) 500 mg PO BID [facility] Last Admin: 05/06/17 13:05 Dose: Not Given Cewwf-2-Urpb Ethyl Esters (Lovaza) 2 gm PO DAILY [facility] Last Admin: 05/06/17 13:03 Dose: 2 gm Pantoprazole Sodium (Protonix Ec Tab) 40 mg PO 0600 [facility] Last Admin: 05/06/17 05:10 Dose: Not Given Potassium Chloride (Klor-Con 10) 10 meq PO DAILY [facility] Last Admin: 05/05/17 11:20 Dose: Not Given Zolpidem Tartrate (Ambien) 5 mg PO HS PRN PRN Reason: Insomnia Physical Exam - Constitutional Appears: Well, Non-toxic, No Acute Distress - Extremities Exam Additional comments: VASC: DP/PT pulses are palpable 2/4 b/l, INDUSTRIAL ECOLOGIST: < 3 sec to all digits, TG: warm to cool from proximal to distal, no pitting or non-pitting edema noted b/l DERM: small fissure noted on the plantar crees at the level of 5th MTPJ, no active bleeding, no surrounding erythema, no edema, no clinical suspicion of active infection, no interdigital maceration NEURO: Protective sensation grossly intact ORTHO: Mild pain on palpation of the 5th digit on the right foot - Neurological Exam Neurological exam: Alert, Oriented x3 - Psychiatric Exam Psychiatric exam: Normal Affect, Normal Mood Results - Vital Signs Recent Vital Signs: Last Vital Signs Temp 97.8 F 05/06/17 06:00 Pulse 87 05/06/17 13:08 Resp 18 05/06/17 06:00 BP 118/54 L 05/06/17 13:08 Pulse Ox 98 05/06/17 06:00 - Labs Result Diagrams: 05/06/17 06:25 05/06/17 06:25 Labs: Laboratory Results - last 24 hr 05/06/17 05/06/17 05/06/17 06:25 06:25 07:00 WBC 9.6 D RBC 3.46 L Hgb 10.9 L Hct 33.0 L MCV 95.4 MCH 31.5 MCHC 33.0 RDW 14.0 Plt Count 159 MPV 11.0 Gran % 77.7 H Lymph % (Auto) 13.5 L [place] % (Auto) 8.3 H Eos % (Auto) 0.4 L Baso % (Auto) 0.1 Gran # 7.42 H Lymph # 1.3 [place] # 0.8 H Eos # 0.0 Baso # 0.01 Sodium 139 Potassium 4.2 Chloride 102 Carbon Dioxide 30 Anion Gap 11 BUN 41 H Creatinine 1.3 Est GFR ( Amer) > 60 Est GFR (Non-Af Amer) 53 Random Glucose 128 H Calcium 9.1 Phosphorus 4.7 H Magnesium 1.7 Free T4 1.32 Total T3 0.77 L TSH 3rd Generation 0.13 L Assessment & Plan - Assessment and Plan (Free Text) Assessment: 82 y/o male seen and evaluated at bedside for plantar fissure at the level of right foot 5th digit MTPJ Plan: Patient seen and evaluated at bedside Labs, vitals and charts reviewed - afebrile Fissure site does not appear infected - Ordered lotramin to be applied daily Compression socks ordered Will continue to follow patient while in-house. Thank you for the podiatry consult - Date & Time Date: 05/06/17 Time: 16:07 <Kath Kendall - Last Filed: 05/12/17 14:44> Results - Vital Signs Recent Vital Signs: Last Vital Signs Temp 98 F 05/07/17 16:00 Pulse 80 05/07/17 18:00 Resp 18 05/07/17 16:00 BP 143/72 05/07/17 16:00 Pulse Ox 97 05/07/17 16:00 - Labs Result Diagrams: 05/06/17 06:25 05/06/17 06:25 Attending/Attestation - Attestation I have personally seen and examined this patient.: Yes I have fully participated in the care of the patient.: Yes I have reviewed all pertinent clinical information: Yes
[2017-05-06] MEDS: Clotrimazole 1% Cream(30 gm) TOP SCH (18:25)
--- NOTE | 2017-05-06 19:55 | CARD ---
APPROVED REPORT EXAM: Two-dimensional and M-mode echocardiogram with Doppler and color Doppler. INDICATION AVR/MVR 2D DIMENSIONS RVDd3.5 (2.9-3.5cm)Left Atrium (2D)5.1 (1.6-4.0cm) IVSd1.2 (0.7-1.1cm)LVDd3.5 (3.9-5.9cm) PWd1.4 (0.7-1.1cm)LVDs2.3 (2.5-4.0cm) FS (%) 34.8 %LVEF (%)65.1 (>50%) M-Mode DIMENSIONS Aortic Root2.90 (2.2-3.7cm) Aortic Valve AoV Peak Ovnnaqop906.0cm/sAoV VTI50.5cmAO Peak GR.25mmHg LVOT Peak Vjwwxfnv526.0cm/sLVOT VTI26.80cmAO Mean GR.14mmHg AI P 1/2 [id number] Mitral Valve MV E Cwgubbuq948.0cm/sMV A Ywrodosg901.0cm/sMV [id number] E/A ratio1.4MVA (PHT)1.82cm2 TDI E/Lateral E'0.0E/Medial E'0.0 Pulmonary Valve PV Peak Omubripe53.2cm/sPV Peak Grad.2mmHg Tricuspid Valve TR Peak Ijbjwkru709eq/sRAP [id number] Peak Gr.141mmHg [id number] LEFT VENTRICLE The left ventricle is normal size. There is mild concentric left ventricular hypertrophy. The left ventricular function is normal.EF-65% There is a flattened septum consistent with right ventricle volume and pressure overload. No left ventricle thrombus noted on this study. There is no ventricular septal defect visualized. There is no left ventricular aneurysm. There is no mass noted in the left ventricle. RIGHT VENTRICLE The right ventricle is mildly to moderately dilated. The right ventricle is mildly hypertrophied. Systolic function is moderately reduced. ATRIA The left atrium is moderately dilated. The right atrium is moderately dilated. The interatrial septum is intact with no evidence for an atrial septal defect. AORTIC VALVE There is mild to moderate aortic regurgitation. There is a bioprosthetic aortic valve prosthesis. MITRAL VALVE Mitral annular calcification is severe. There is no mitral valve regurgitation noted. S/p MV repair TRICUSPID VALVE The tricuspid valve leaflets are thickened , but open well. There is moderate to severe tricuspid regurgitation.[id number] mmof hg, C/w severe Pulmonary HTN. There is no tricuspid valve stenosis. There is no tricuspid valve prolapse or vegetation. PULMONIC VALVE The pulmonic valve is mildly thickened. There is mild pulmonic valvular regurgitation. There is no pulmonic valvular stenosis. GREAT VESSELS The aortic root is normal in size. The ascending aorta is normal in size. The pulmonary artery is normal. The IVC is dilated. PERICARDIAL EFFUSION There is no pleural effusion. There is no pericardial effusion. <Conclusion> The left ventricle is normal size. There is mild concentric left ventricular hypertrophy. There is mild to moderate aortic regurgitation. There is a bioprosthetic aortic valve prosthesis. There is no mitral valve regurgitation noted. S/p MV repair There is moderate to severe tricuspid regurgitation.[id number] mmof hg, C/w severe Pulmonary HTN. There is mild pulmonic valvular regurgitation. The IVC is dilated. There is no pericardial effusion. There is a flattened septum consistent with right ventricle volume and pressure overload.
--- NOTE | 2017-05-06 20:00 | HP ---
DATE OF SERVICE: 05/05/2017 REASON FOR ADMISSION TO THE HOSPITAL: Short of breath. HISTORY OF PRESENT ILLNESS: This is an 82-year-old male came into the hospital with complaint of short of breath. The patient has been having short of breath with exertion last few days and weeks, which got worse recently. The patient does have a history of cardiac disease, cardiac bypass surgery, aortic valve replacement, mitral valve ring repair and also have a history of endocarditis at one point in [place] and it is treated and he was being doing well since then. The patient also have history of hypertension, diabetes, and being on Lasix. The patient also had a prostate problem. Apparently, the patient hold his Lasix instead of everyday, he hold it only on weekends Friday and Friday, came in with short of breath, mainly with exertions. No problems paroxysmal nocturnal dyspnea. No orthopnea. No nausea or vomiting. PAST MEDICAL HISTORY: As I mentioned above in addition to diabetes, hypertension, prostate enlargement, chronic peripheral neuropathy, disk problems and disk surgery may be 10 years ago, cardiac surgery as above, chronic anxiety, and depression. FAMILY HISTORY: Noncontributory. ALLERGIES: NO KNOWN ALLERGIES. SOCIAL HISTORY: No smoke. No drink. Never smoke. Never drink. REVIEW OF SYSTEMS: As in the present illness. He does have short of breath, does have frequent urination, anxiety, depression, neuropathy, and gait disorder. PHYSICAL EXAMINATION: VITAL SIGNS: The patient when he came in his blood pressure was 100-105/53, respirations was 18, heart rate 77, temperature 97.8 and saturating 99% on room air. HEAD AND NECK: Normal. No JVD. CHEST: Clear with diminished breath sounds on the bases. CARDIAC: First sound is a little bit muffled. There is systolic murmur on the mitral area and second sounds is heard normal. There is rejection systolic murmur over aortic area. ABDOMEN: Soft and nontender. EXTREMITIES: Mild edema mainly in the left more than right. NEUROLOGICAL: He is alert, awake, and oriented. He move all extremities. LABORATORY DATA: His white count 3.4, hemoglobin 11.6, hematocrit 34.7, platelets are 154. His chemistry shows sodium 140, potassium 4.2, chloride 103, bicarbonate 28, BUN 26, creatinine 1.1, blood sugar was 114. His magnesium was low 1.3 and his ALT slightly elevated, alkaline phosphatase is normal and his proBNP was 2230. Chest CT was done, no evidence of PE, but bilateral pleural effusions. Ultrasound lower extremity also was done and was negative for any DVT. No evidence of DVT sonographically. IMPRESSION AND PLAN: 1. This is an 82-year-old male came in with short of breath. He has been noncompliance with Lasix. He does have a history of cardiac disease, valvular replacement, aortic valve repair history of mitral valve ring and history of endocarditis came into the hospital with short of breath, found to have congestive heart failure, high BNP and we will admit the patient with acute on top of chronic congestive heart failure. We will evaluate the left ventricular function with valvular status and also we will consider evaluating his under coronary artery for any underlying disease or stenosis, also noncompliance with medication could be a nasal fracture in his symptoms. Advised, we will resume Lasix IV and advised the patient to maintain his Lasix everyday. Continue current treatment. Followup clinically. 2. He does have hypertension, hypercholesterolemia, chronic anxiety, depression. We will resume all his medications. Continue insulin coverage. Deep venous thrombosis prophylaxis and we will get a podiatry consult to see him if he does have a small ulcer in the right small toe and we will follow up clinically. Arya Booker MD
[2017-05-06] MEDS: Latanoprost 2.5 ml Opht Soln OU SCH (21:50)
--- NOTE | 2017-05-06 22:09 | CARD ---
APPROVED REPORT Protocol: LEXISCAN Test Type: Lexiscan Sestamibi Stress Test Attending Physician: Dr. Guru Sosa Referring Physician: Dr. Arya Booker Test Indications: CAD Height:5 ft 6 in Weight:175lbs Medications: aspirin, lipitor, plavix, lovenox, prozac, lasix, neurontin, insulin, xalatan, levalbuteraol, zestril, metformin, remeron, singulair Medical History: 82 year old male with a h/o dibetes, COPD, CHF, htn, high cholesterol, stroke, CAD, Gerd, anxiety and depression Target HR: 140 bpm Resting ECG: NSR, RBBB, LAHB Resting Heart Rate: 75 bpm Resting Blood Pressure: 126/52mmHg Submaximum (85%): 119 bpm PROCEDURE Pharmacologic stress testing was performed using 0.4mg per 5ml of regadenoson given intravenously over 7-10 seconds. Reversal agent aminophyline 100 mg, given intravenously for Headache. POST EXERCISE Reason for Termination: Protocol completed Target HR: No Max HR: 84 bpm 60% of Maximum Predicted HR: 140 bpm Exercise duration: 01:28 min:sec, 0 Stage Exercise capacity: 1.0METs Max Blood Pressure: 126/52mmHg Blood Pressure response to exercise: normal resting BP - appropriate response Heart Rate response to exercise: appropriate Chest Pain: No, none Angina index: 0 Arrhythmia: No, none ST Change: No, none from base line Deviation: 0 mm INTERPRETATION Stress EKG Conclusion: Negatvie IV lexiscan for ischemia and for chest pain, Nuclear scan to follow. Signed by Guru Sosa Electronically Approved: 05/06/2017 10:46:33 EXAM: Myocardial Perfusion REST/STRESS Stress Test Type: Pharmacologic Imaging Protocol Rest Spect myocardial perfusion imaging was performed in supine position 45 minutes following the injection of 10.4 mCi of Tc-99 Myoview. At peak stress, the patient was injected intravenously with 30.8mCi of Tc-99 tetrofosmin after an infusion time of 0 minutes and 10 seconds. Gated Stress Spect was performed 70 minutes after intravenous Tc-99 Myoview injection. The images were gated to evaluate regional wall motion and calculate ventricular ejection fraction.Images were reconstructed using backfilter projection method in short horizontal and verticle long axis. Spect slices were generated. LV Perfusion The quality of the study is good. The left ventricle is within normal limits in size with thickened myocardium. The right ventricle is unremarkable. The lung uptake is within normal limits. The distribution of tracer reveals normal uptake pattern throughout the LV myocardium on the stress study. The rest myocardial perfusion study shows no significant change. Wall Motion Wall motion study shows good contractility of the left ventricle except for paradoxical septal wall motion. LVEF = 73%. Conclusion 1. Normal SPECT myocardial perfusion study. 2. Normal overall LV function despite paradoxical septal wall motion. 3. In comparison with the last study of 08/27/2013, there is no significant change.
[2017-05-06] MEDS: Insulin Detemir 100 units/ml Vial (Levemir) SC SCH (22:18)
[2017-05-07] MEDS: Levalbuterol 0.63 MG/3 ML Inhal Soln UD IH SCH ×3 (02:27→13:31)
[2017-05-07] MEDS: Pantoprazole 40 mg EC Tab PO SCH (04:59)
[2017-05-07] MEDS: Insulin Regular 1 UNITS/0.01 ML ML SC SCH ×2 (08:52→13:07)
[2017-05-07] MEDS ORDERED: Bisacodyl 5mg EC Tab PO PRN (10:00)
--- NOTE | 2017-05-07 12:56 | PN ---
DATE: 05/06/2017 SUBJECTIVE: The patient came in with dyspnea on exertion. Evaluation by Cardiology and Pulmonology. The patient had an echocardiography and was given Lasix. He feels better and complain only of constipation. PHYSICAL EXAMINATION: VITAL SIGNS: On the date is as follows: Temperature of 97.8, heart rate of 83, blood pressure of 119/94, respirations of 18, and oxygen saturation of 98% on 2 liters. HEAD AND NECK: Normal. No JVD. No thyromegaly. CHEST: Clear with good air entry. CARDIAC: First sound and second sound normal. There is systolic murmur on the mitral as well as aortic area. ABDOMEN: Soft. Bowel sounds intact. EXTREMITIES: Left leg edema more than right. NEUROLOGIC: Normal. LABORATORY DATA: White count of 9.6, hemoglobin of 10.9, hematocrit of 33, and platelets of 159. Chemistries: Sodium of 139, potassium of 4.2, chloride of 102, bicarbonate of 30, BUN of 41, and creatinine of 1.3. Blood sugar of 128 and his phosphorus of 4.7 and magnesium of 1.7. DIAGNOSTIC DATA: The patient also had myocardial stress test, which shows normal perfusion and no evidence of ischemia. Echocardiography was noted and was significant for pulmonary hypertension, good ejection fraction 65% and the mild to moderate aortic regurgitation, bioprosthetic valve, and no mitral valve regurgitation noted, status post mitral valve repair. The patient has moderate to severe tricuspid regurgitation with right ventricular systolic pressure is 151 mmHg consistent with severe pulmonary hypertension and no tricuspid stenosis. IMPRESSION: 1. Dyspnea probably secondary to severe pulmonary hypertension. 2. Chronic obstructive pulmonary disease. 3. Obstructive sleep apnea. 4. Diabetes type 2. 5. Status post bioprosthetic valve. 6. Good left ventricular function, no ischemia. PLAN: We will discharge the patient. The patient will benefit from BiPAP machine and will benefit from other medicine for pulmonary hypertension. Arya Booker MD
[2017-05-07] MEDS: Enoxaparin 40 mg Syringe SC SCH (13:08)
[2017-05-07] MEDS: D3 PO SCH (13:09)
[2017-05-07] MEDS: NIACINAMIDE 500 MG PO SCH (13:09)
[2017-05-07] MEDS: FOLIC ACID PO SCH (13:09)
[2017-05-07] MEDS: LUT PO SCH (13:09)
[2017-05-07] MEDS: ALA PO SCH (13:09)
[2017-05-07] MEDS: MV MIN10 PO SCH (13:09)
[2017-05-07] MEDS: Clotrimazole 1% Cream(30 gm) TOP SCH (13:16)
[2017-05-07] MEDS: Omega-3-Acid Ethyl Esters 1 GM Cap PO SCH (13:17)
--- NOTE | 2017-05-07 15:21 | CP.PCM.PN ---
<Bonita Smith - Last Filed: 05/07/17 15:17> Subjective - Date & Time of Evaluation Date of Evaluation: 05/07/17 Time of Evaluation: 15:17 - Subjective Subjective: Podiatry note - Dr. Kendall 82 y/o male seen and evaluated at bedside with attending Dr. Kendall for right foot 5th digit pain. Patient states that his toe pain has been alleviated. Patient states that his compression socks also feel better on his LE bilaterally. Patient denies of any other pedal complains at this time. Patient denies of any recent F/N/V/C/SOB/CP today. Objective - Vital Signs/Intake and Output Vital Signs (last 24 hours): Temp Pulse Resp BP Pulse Ox 97.7 F 79 16 91/48 L 98 05/07/17 06:00 05/07/17 13:20 05/07/17 06:00 05/07/17 13:20 05/07/17 06:00 Intake and Output: 05/07/17 05/07/17 06:59 18:59 Intake Total 780 300 Output Total 1600 600 Balance -820 -300 - Medications Medications: Current Medications Aspirin (Ecotrin) 81 mg PO DAILY [facility] Last Admin: 05/07/17 13:18 Dose: 81 mg Atorvastatin Calcium (Lipitor) 40 mg PO HS [facility] Last Admin: 05/06/17 21:50 Dose: 40 mg Bisacodyl (Dulcolax) 5 mg PO DAILY PRN PRN Reason: Constipation Clopidogrel Bisulfate (Plavix) 75 mg PO HS [facility] Last Admin: 05/06/17 21:50 Dose: 75 mg Clotrimazole (Lotrimin 1%) 0 gm TOP BID [facility] Last Admin: 05/07/17 13:16 Dose: 1 units Enoxaparin Sodium (Lovenox) 40 mg SC DAILY [facility] PRN Reason: Protocol Last Admin: 05/07/17 13:08 Dose: Not Given Fluoxetine HCl (Prozac) 40 mg PO DAILY [facility] Last Admin: 05/07/17 13:17 Dose: 40 mg Furosemide (Lasix) 40 mg IV BID [facility] Last Admin: 05/07/17 13:20 Dose: Not Given Gabapentin (Neurontin) 300 mg PO HS [facility] PRN Reason: Protocol Last Admin: 05/06/17 21:50 Dose: 300 mg Insulin Detemir (Levemir) 10 unit SC HS [facility] Last Admin: 05/06/17 22:18 Dose: Not Given Insulin Human Regular (Humulin R) 0 units SC ACHS [facility] PRN Reason: Protocol Last Admin: 05/07/17 13:07 Dose: Not Given Latanoprost (Xalatan Opht) 1 ml OU HS [facility] Last Admin: 05/06/17 21:50 Dose: 1 ml Levalbuterol HCl (Xopenex) 0.63 mg IH [id number] [facility] Last Admin: 05/07/17 13:31 Dose: 0.63 mg Lisinopril (Zestril) 2.5 mg PO DAILY [facility] Last Admin: 05/07/17 13:20 Dose: Not Given Metformin HCl (Glucophage) 850 mg PO BID [facility] Last Admin: 05/07/17 13:18 Dose: 850 mg Mirtazapine (Remeron) 15 mg PO DAILY [facility] Last Admin: 05/07/17 13:17 Dose: 15 mg Montelukast Sodium (Singulair) 10 mg PO HS [facility] Last Admin: 05/06/17 21:50 Dose: 10 mg Non-Formulary Medication (Mv,Min10/Folic Acid/D3/Ala/Lut [Strovite One Caplet]) 1 tab PO DAILY [facility] Last Admin: 05/07/17 13:09 Dose: Not Given Non-Formulary Medication (Niacinamide [Niacin]) 500 mg PO BID [facility] Last Admin: 05/07/17 13:09 Dose: Not Given Jctpi-8-Sizq Ethyl Esters (Lovaza) 2 gm PO DAILY [facility] Last Admin: 05/07/17 13:17 Dose: 2 gm Pantoprazole Sodium (Protonix Ec Tab) 40 mg PO 0600 [facility] Last Admin: 05/07/17 04:59 Dose: 40 mg Potassium Chloride (Klor-Con 10) 10 meq PO DAILY [facility] Last Admin: 05/05/17 11:20 Dose: Not Given Zolpidem Tartrate (Ambien) 5 mg PO HS PRN PRN Reason: Insomnia - Labs Labs: 05/06/17 06:25 05/06/17 06:25 - Constitutional Appears: Well, Non-toxic, No Acute Distress - Extremities Exam Extremities Exam: absent: Calf Tenderness Additional comments: VASC: DP/PT pulses are palpable 2/4 b/l, SUPERINTENDENT COMMUNICATIONS: < 3 sec to all digits, TG: warm to cool from proximal to distal, no pitting or non-pitting edema noted b/l DERM: small fissure noted on the plantar crees at the level of 5th MTPJ - appears to be resolving, no active bleeding, no surrounding erythema, no edema, no clinical suspicion of active infection, no interdigital maceration NEURO: Protective sensation grossly intact ORTHO: Mild pain on palpation of the 5th digit on the right foot - Neurological Exam Neurological Exam: Alert, Awake, Oriented x3 - Psychiatric Exam Psychiatric exam: Normal Affect, Normal Mood Assessment and Plan - Assessment and Plan (Free Text) Assessment: 82 y/o male seen and evaluated at bedside for plantar fissure at the level of right foot 5th digit MTPJ Plan: Patient seen and evaluated at bedside Labs, vitals and charts reviewed - afebrile Fissure site does not appear infected - applied clotrimazole Compression socks on bilateral LE Patient is stable from podiatry standpoint Will continue to follow patient while in-house. <Kath Kendall - Last Filed: 05/12/17 14:48> Objective - Vital Signs/Intake and Output Vital Signs (last 24 hours): Temp Pulse Resp BP Pulse Ox 98 F 80 18 143/72 97 05/07/17 16:00 05/07/17 18:00 05/07/17 16:00 05/07/17 16:00 05/07/17 16:00 - Labs Labs: 05/06/17 06:25 05/06/17 06:25 Attending/Attestation - Attestation I have personally seen and examined this patient.: Yes I have fully participated in the care of the patient.: Yes I have reviewed all pertinent clinical information, including history, physical exam and plan: Yes
[2017-05-07 18:23] VITALS: BP 143/72; PULSE 80; RESP 18; TEMP 98; O2SAT 97
--- NOTE | 2017-05-07 23:21 | PN ---
DATE: 05/07/2017 LOCATION: The patient in room 377, bed 2. REASON FOR CONSULTATION: Followup CHF, history of AVR, history of mitral valve repair, history of one-vessel bypass surgery, diabetes, hypertension, hyperlipidemia. SUBJECTIVE: The patient lying flat in bed. He says his shortness of breath is much improved. Denies chest pain or palpitation. PHYSICAL EXAMINATION: VITAL SIGNS: Blood pressure 143/72, earlier pressure was 91/48, respirations 18, pulse 80, temperature 98. HEENT: Head is normocephalic. Eyes: Pupils are normal. Conjunctivae slightly pale. NECK: JVP low. Carotids are equal. THORAX: AP diameter normal. LUNGS: No significant rales. CARDIOVASCULAR: S1 and S2. Systolic murmur. No rub. ABDOMEN: Soft, nontender. No organomegaly. Bowel sounds normal. EXTREMITIES: No clubbing, no cyanosis. LABORATORY DATA: WBC 9.6, hemoglobin 10.9, hematocrit 33.0, platelet 159. Sodium 139, potassium 4.2, BUN 41, creatinine 1.3. Random glucose 128, calcium 9.1, phosphorus 12.7, magnesium 1.7. Free T4 1.32, total T3 of 0.77. TSH 0.13. DIAGNOSTIC DATA: The patient had IV Lexiscan stress test on 05/06/2017. Normal SPECT myocardial study with LV ejection fraction of 73%. Echo showed normal size LV, mild concentric left ventricular hypertrophy, [id number] aortic regurgitation, bioprosthetic aortic valve prosthesis in place, no mitral valve regurgitation, status post mitral valve repair, [id number] tricuspid regurgitation with RVSP of 151 mmHg consistent with severe pulmonary hypertension, flattened septum consistent with right ventricle volume and pressure overload. DIAGNOSES: Congestive heart failure, coronary artery disease, one-vessel bypass surgery left radial to right coronary artery, aortic valve bioprosthetic replacement, mitral valve repair with ring insertion in 2006, diabetes, hypertension, hyperlipidemia, back surgery, laminectomy, peripheral neuropathy. The patient is being discharged today. We will continue present therapy. We will follow with you. Guru Khan MD
--- NOTE | 2017-05-09 15:55 | PQF CHF ---
05/09/17 , You document systolic CHF on your consult of 05/05. Please specify whether this is acute,chronic, or both, as listed below. Thank you. Clarification of your documentation is requested to better reflect the severity of illness and intensity of treatment of your patient. Indicators present [] Diagnosis of CHF and/or history of CHF [] BNP > 200 [] Imaging Finding of Pulmonary Edema /Pleural Effusions [] Fluid/Volume Overload [] Pitting edema [] Ejection Fraction < 40% (Indicative of Systolic Heart Failure) [] Ejection Fraction > 40% (Indicative of Diastolic Heart Failure) [] Dyspnea / Orthopenea / Paroxysmal Nocturnal Dyspnea [] Other: Location in the medical record that reflects the above clinical findings: [] Treatment Provided: [] PHYSICIAN'S RESPONSE Based on your medical judgment of the clinical indicators outlined above, are you treating this patient for a known or suspected: [] Acute CHF [] Systolic [] Diastolic [] Combined [] Chronic CHF [] Systolic [] Diastolic [] Combined [] Acute on Chronic CHF []Systolic [] Diastolic [] Combined [] CHF due hypertension [] Acute systolic []Chronic systolic [] Acute/ chronic systolic [] Other, please indicate: [] [] If Unable to Determine, please check the box, sign and date. Present On Admission (POA) Indicator: [] Present at the time of admission [] Not present at the time of admission [] Clinically Undetermined In responding to this query, please exercise your independent professional judgment. The fact that a question is asked does not imply that any particular answer is desired or expected. Thank you for your clarification on this documentation. If you have any questions please call:[ ] * Thank you, [ ] factorer AMALIA
--- NOTE | 2017-05-11 05:09 | DS ---
DATE OF DISCHARGE: 05/07/2017 HISTORY OF PRESENT ILLNESS AND HOSPITAL COURSE: The patient is an 82-year-old male who came into the hospital. He came in with short of breath and found to have left lower leg edema, more than the right. The patient had venous Doppler of both legs, was negative. High BNP was noted on the blood work initial admissions and diagnoses of congestive heart failure and possibly right-sided heart failure due to underlying COPD. The patient also had obstructive sleep apnea, noncompliant with the BiPAP machine. He was seen by Cardiology, Dr. Sosa, who had an echocardiography which shows preserved cardiac function. Stress test was normal. He also had echocardiography which shows good LV function, no pericardial effusion, no masses. Only noted for pulmonary hypertension. According to the calculation, it is more than 5 meters; however, it seems like 4 meters on the tricuspid regurgitations by Doppler ultrasound which may be pulmonary hypertension 100 range. However, the reports say it is 161, which is too much, so we will discuss further with Cardiology, but I believe it is 100 or may be 91 mmHg right-sided pulmonary hypertension. The patient is noncompliant with his CPAP. BiPAP could be a reason. He also had good LV functions. So, at this time, we will discharge the patient to continue Lasix only twice a week as per Dr. Sosa's recommendation. He has been seen by Dr. Sosa, Dr. Khan, also had a carotid ultrasound by Dr. Santos Johansen and his venous Doppler was negative. Carotid ultrasound was also reported to be bilateral 39% stenosis. The patient also while he was in the hospital he had a chest CT angio which was negative for pulmonary embolism, but has a small bilateral effusion. He also had a CAT scan of the head which had no definitive acute intracranial findings. Marginal increase in chronic mitral angiopathy with stable diffuse cerebral atrophy appreciated. At this time, we will discharge the patient home to be followed as outpatient. PHYSICAL EXAMINATION: VITAL SIGNS: Temperature 98, heart rate 80, blood pressure 143/72, respirations 18, saturation 97%. HEAD AND NECK: Normal. No JVD. No thyromegaly. CHEST: Clear. Good air entry. CARDIAC: First sound and second sound normal. ABDOMEN: Soft, nontender. EXTREMITIES: Mild trace edema, the left more than right. NEUROLOGIC: Alert, awake, and oriented x3 and normal. LABORATORY DATA: Last laboratory study was on 05/06/2017, shows white count 9.6, hemoglobin 10.9, hematocrit 33, platelet is 159. Chemistries shows sodium 139, potassium 4.2, chloride 102, bicarb 30, BUN 41, creatinine 1.3. His blood sugar was 128, his calcium is 9.1, his magnesium is 1.7, phosphorus 4.7. The patient also had troponin which was negative. He also has TSH, which was kind of on the low side, but that could be euthyroid sick syndrome. We will monitor that. DISCHARGE DIAGNOSES: 1. Acute mild congestive heart failure, probably right-sided more than left, also diastolic heart failure could be part of the picture. We will continue Lasix twice a week as per Dr. Sosa. 2. Pulmonary hypertension. The pressure in the right side probably 100; however, the Cardiology reports mentioned was 151. I do have the tracing by myself, it did not reach 5 when spoke to his command center officer about it and the patient advised to use BiPAP on a regular basis and will follow up with the potato chip maker, Dr. Bustos. 3. Anemia, chronic. He has endoscopy before and was negative. 4. Prostate enlargement. 5. Mild dementia or mild cognitive disorder. 6. Peripheral neuropathy, chronic back pain. 7. Diabetes, controlled. 8. Hypercholesterolemia. 9. Insomnia, may be mild depression. We will follow up with the patient's physician in [place], Urology. We will monitor his case. We will discuss result with the patient. Arya Booker MD
--- NOTE | 2017-05-12 18:23 | PQF CHF ---
05/09/17 , You signed the query form, but I do not see specification of acuity of CHF. You document systolic CHF on your consult of 05/05. Please specify whether this is acute,chronic, or both, as listed below. Thank you. Clarification of your documentation is requested to better reflect the severity of illness and intensity of treatment of your patient. Indicators present [] Diagnosis of CHF and/or history of CHF [] BNP > 200 [] Imaging Finding of Pulmonary Edema /Pleural Effusions [] Fluid/Volume Overload [] Pitting edema [] Ejection Fraction < 40% (Indicative of Systolic Heart Failure) [] Ejection Fraction > 40% (Indicative of Diastolic Heart Failure) [] Dyspnea / Orthopenea / Paroxysmal Nocturnal Dyspnea [] Other: Location in the medical record that reflects the above clinical findings: [] Treatment Provided: [] PHYSICIAN'S RESPONSE Based on your medical judgment of the clinical indicators outlined above, are you treating this patient for a known or suspected: [] Acute CHF [] Systolic [] Diastolic [] Combined [] Chronic CHF [] Systolic [] Diastolic [] Combined [] Acute on Chronic CHF []Systolic [] Diastolic [] Combined [] CHF due hypertension [] Acute systolic []Chronic systolic [] Acute/ chronic systolic [] Other, please indicate: [] [] If Unable to Determine, please check the box, sign and date. Present On Admission (POA) Indicator: [] Present at the time of admission [] Not present at the time of admission [] Clinically Undetermined In responding to this query, please exercise your independent professional judgment. The fact that a question is asked does not imply that any particular answer is desired or expected. Thank you for your clarification on this documentation. If you have any questions please call:[ ] * Thank you, [ ] main entree cook and cashier AMALIA
--- NOTE | 2017-05-12 18:37 | EEG ---
DATE: 05/12/2017 CONDITION OF THE RECORDING: Drowsy. DIAGNOSIS: Syncope. MEDICATIONS: Reviewed by nurse's reconciliation sheet. INTERPRETATION: This is a 16-channel international recording. The background activity of the cycle was composed of 6-7 cycles per second. There was a small amount of beta activity of 16-20 cycles per second seen in this recording. There was increased amount of theta activity 5-7 cycles per seconds seen in this recording. Drowsiness was characterized by mixed beta and theta activities. Sleep was characterized by vertex transient waves, sleep spindles, and bilateral slowing. Photic stimulation showed no changes in the tracing. No paroxysmal activity is noted in this recording. CONCLUSION: This is an abnormal EEG due to presence of mild diffuse slowing consistent with mild bilateral cerebral dysfunction. Please clinically correlate. Freddy Arteaga MD
== END 2017-05-07 20:17 | disposition home or self-care (01) | DRG 293 ==
LOC: ED 17:44 → ERH 22:49 → 3RSO 05-05 01:06
PROVIDERS: ADMIT Internal Medicine; ATTEND Internal Medicine
DX: I11.0 Hypertensive heart disease with heart failure (principal); I50.23 Acute on chronic systolic (congestive) heart failure; E11.42 Type 2 diabetes mellitus with diabetic polyneuropathy; I27.20 Pulmonary hypertension, unspecified; I08.3 Combined rheumatic disorders of mitral, aortic and tricuspid valves; E83.42 Hypomagnesemia; J44.9 Chronic obstructive pulmonary disease, unspecified; F03.90 Unspecified dementia, unspecified severity, without behavioral disturbance, psychotic disturbance, mood disturbance, and anxiety; K21.9 Gastro-esophageal reflux disease without esophagitis; K59.00 Constipation, unspecified; N40.0 Benign prostatic hyperplasia without lower urinary tract symptoms; H40.9 Unspecified glaucoma; G47.33 Obstructive sleep apnea (adult) (pediatric); F41.9 Anxiety disorder, unspecified; E78.00 Pure hypercholesterolemia, unspecified; E78.5 Hyperlipidemia, unspecified; F32.89 Other specified depressive episodes; Z79.02 Long term (current) use of antithrombotics/antiplatelets; Z79.82 Long term (current) use of aspirin; Z79.899 Other long term (current) drug therapy; Z86.73 Personal history of transient ischemic attack (TIA), and cerebral infarction without residual deficits; Z87.11 Personal history of peptic ulcer disease; Z91.14 Patient's other noncompliance with medication regimen; Z95.1 Presence of aortocoronary bypass graft; Z95.3 Presence of xenogenic heart valve; I25.119 Atherosclerotic heart disease of native coronary artery with unspecified angina pectoris; N52.9 Male erectile dysfunction, unspecified; R40.2412 Glasgow coma scale score 13-15, at arrival to emergency department; R41.3 Other amnesia

== ENCOUNTER 2017-05-20 12:59 | Inpatient (IN) | payer MEDICARE, OTHER ==
[2017-05-20] MEDS ORDERED: Albuterol-Ipratrop 3 mg / 0.5 (3 ml) UD IH STA (13:06)
--- NOTE | 2017-05-20 13:11 | ED PDOC ---
Arrival/HPI - General Time Seen by Provider: 05/20/17 13:03 Historian: Patient, EMS - History of Present Illness Narrative History of Present Illness (Text): 05/20/17 13:01 A 82 year old male, whose past medical history includes CHF, pulmonary hypertension, hypomagnesemia, presents to the emergency department via EMS for shortness of breath on exertion. The patient states he has felt shorted of breath for the past 2 years, but has worsened today. The patient denies any cough, fever, abdominal pain, or any other complaints at this time. Time/Duration: Prior to Arrival, Other (2 years ) Symptom Onset: Other Symptom Course: Worsening Quality: Other (shortness of breath ) Context: Walking, Home Past Medical History - Provider Review Nursing Documentation Reviewed: Yes - Infectious Disease Hx of Infectious Diseases: None - Tetanus Immunization Tetanus Immunization: Unknown - Cardiac Hx Hypertension: Yes - Pulmonary Hx Chronic Obstructive Pulmonary Disease (COPD): Yes - Neurological HX Cerebrovascular Accident: Yes - HEENT Hx HEENT Disorder: Yes Hx Glaucoma: Yes - Renal Hx Renal Disorder: No - Endocrine/Metabolic Hx Diabetes Mellitus Type 2: Yes - Hematological/Oncological Hx Blood Disorders: Yes (blood transfusion) - Integumentary Hx Dermatological Disorder: No - Musculoskeletal/Rheumatological Hx Falls: Yes - Gastrointestinal Hx Gastrointestinal Disorders: Yes (CONSTIPATION) Hx Gastroesophageal Reflux: Yes - Genitourinary/Gynecological Hx Genitourinary Disorders: Yes (ERECTILE DYSFUNCTION) Hx Prostate Problems: Yes - Psychiatric Hx Psychophysiologic Disorder: Yes (MEMORY LOSS) Hx Anxiety: Yes Hx Depression: Yes Hx Substance Use: No - Past Surgical History Past Surgical History: Unable to Obtain - Surgical History Hx Coronary Artery Bypass Graft: Yes (aortic valve replacement) - Anesthesia Hx Anesthesia: Yes Hx Anesthesia Reactions: No Hx Malignant Hyperthermia: No - Suicidal Assessment Feels Threatened In Home Enviroment: No Family/Social History - Physician Review Nursing Documentation Reviewed: Yes Family/Social History: No Known Family HX Smoking Status: Never Smoked Hx Alcohol Use: No Hx Substance Use: No Hx Substance Use Treatment: No Allergies/Home Meds Allergies/Adverse Reactions: Allergies No Known Allergies Allergy (Verified 05/20/17 15:21) Home Medications: Home Meds Medication Instructions Recorded Confirmed Albuterol HFA [Ventolin HFA 90 90 mcg IH QID 05/20/17 05/20/17 mcg/actuation (8 g)] Atomoxetine HCl [Strattera] 60 mg PO DAILY 05/20/17 05/20/17 Atorvastatin [Lipitor] 40 mg PO DAILY 05/20/17 05/20/17 Bupropion HCl [Wellbutrin Sr] 75 mg PO BID 05/20/17 05/20/17 Cetirizine HCl [Zyrtec] 10 mg PO DAILY 05/20/17 05/20/17 Ergocalciferol (Vitamin D2) 1.25 mg PO DAILY 05/20/17 05/20/17 [Vitamin D2] Esomeprazole Magnesium [Nexium] 40 mg PO DAILY 05/20/17 05/20/17 Fluticasone/Salmeterol 500/50 1 puff IH BID 05/20/17 05/20/17 [Advair Diskus 500/50] Gabapentin [Neurontin] 300 mg PO DAILY 05/20/17 05/20/17 Magnesium Oxide [Mag-Ox] 400 mg PO BID 05/20/17 05/20/17 Metformin HCl [Glucophage] 850 mg PO BID 05/20/17 05/20/17 Niacin [Niaspan] 500 mg PO BID 05/20/17 05/20/17 Sildenafil [Revatio] 20 mg PO DAILY 05/20/17 05/20/17 Review of Systems - Physician Review All systems were reviewed & negative as marked: Yes - Review of Systems Constitutional: absent: Fevers Respiratory: SOB. absent: Cough Gastrointestinal: absent: Abdominal Pain Physical Exam Vital Signs Reviewed: Yes Vital Signs Temp Pulse Resp BP Pulse Ox 05/20/17 15:32 20 05/20/17 15:26 98.1 F 76 20 120/43 L 97 05/20/17 14:57 110/46 L 05/20/17 13:17 97.4 F L 87 18 121/52 L 95 Appearance: Positive for: Well-Appearing, Non-Toxic, Comfortable Pain Distress: None Mental Status: Positive for: Alert and Oriented X 3 - Systems Exam Head: Present: Atraumatic, Normocephalic Pupils: Present: PERRL Extroacular Muscles: Present: EOMI Conjunctiva: Present: Normal Mouth: Present: Moist Mucous Membranes Neck: Present: Normal Range of Motion Respiratory/Chest: Present: Decreased Breath Sounds (diminished breath sounds bilaterally ). No: Respiratory Distress, Accessory Muscle Use Cardiovascular: Present: Regular Rate and Rhythm, Normal S1, S2. No: Murmurs Abdomen: Present: Normal Bowel Sounds. No: Tenderness, Distention, Peritoneal Signs Back: Present: Normal Inspection Upper Extremity: Present: Normal Inspection. No: Cyanosis, Edema Lower Extremity: Present: Edema (1+ bilaterally ) Neurological: Present: GCS=15, CN II-XII Intact, Speech Normal Skin: Present: Warm, Dry, Normal Color. No: Rashes Psychiatric: Present: Alert, Oriented x 3, Normal Insight, Normal Concentration Medical Decision Making - Lab Interpretations Lab Results: 05/20/17 13:40 05/20/17 13:40 Lab Results 05/20/17 13:41: Phosphorus 3.1, Magnesium 1.8 05/20/17 13:40: Sodium 140, Potassium 4.0, Chloride 105, Carbon Dioxide 25, Anion Gap 13, BUN 27 H, Creatinine 1.0, Est GFR ( Amer) > 60, Est GFR ( Non-Af Amer) > 60, Random Glucose 262 H, Calcium 8.9, Total Bilirubin 1.0, AST 90 H D, ALT 138 H, Alkaline Phosphatase 149 H, Troponin I 0.02 D, NT-Pro-B Natriuret Pep 2810 H, Total Protein 6.1, Albumin 3.4, Globulin 2.8, Albumin/ Globulin Ratio 1.2 05/20/17 13:40: WBC 4.7 D, RBC 3.47 L, Hgb 10.9 L, Hct 33.2 L, MCV 95.7, MCH 31.4, MCHC 32.8, RDW 13.9, Plt Count 149, MPV 11.8 H, Gran % 57.0, Lymph % (Auto ) 23.5, Luce % (Auto) 14.4 H, Eos % (Auto) 4.9, Baso % (Auto) 0.2, Gran # 2.69, Lymph # 1.1 L, Luce # 0.7 H, Eos # 0.2, Baso # 0.01 - RAD Interpretation Radiology Orders: 05/20/17 13:06 CHEST PORTABLE [RAD] Stat - Medication Orders Current Medication Orders: Albuterol/Ipratropium (Duoneb 3 Mg/0.5 Mg (3 Ml) Ud) 3 ml IH Q6H PRN PRN Reason: Shortness of Breath Aspirin (Ecotrin) 81 mg PO DAILY BAKARI Clopidogrel Bisulfate (Plavix) 75 mg PO DAILY BAKARI Fluoxetine HCl (Prozac) 40 mg PO DAILY BAKARI Furosemide (Lasix) 20 mg IVP Q12H BAKARI Gabapentin (Neurontin) 300 mg PO STAT BAKARI PRN Reason: Protocol Insulin Human Lispro (Humalog Low) 0 units SC ACHS BAKARI PRN Reason: Protocol Latanoprost (Xalatan Opht) 0 ml OU HS BAKARI Mirtazapine (Remeron) 15 mg PO HS BAKARI [id number] Ethyl Esters (Lovaza) 1 gm PO BID BAKARI Last Admin: 05/20/17 17:20 Dose: 1 gm Pantoprazole Sodium (Protonix Ec Tab) 40 mg PO 0600 BAKARI Zolpidem Tartrate (Ambien) 10 mg PO HS PRN; Protocol PRN Reason: Insomnia Discontinued Medications Albuterol/Ipratropium (Duoneb 3 Mg/0.5 Mg (3 Ml) Ud) 3 ml IH ONCE STA Stop: 05/20/17 13:07 Last Admin: 05/20/17 14:57 Dose: 3 ml Furosemide (Lasix) 40 mg IVP STAT STA Stop: 05/20/17 14:39 Last Admin: 05/20/17 14:57 Dose: 40 mg MAR Blood Pressure Document 05/20/17 14:57 (Rec: 05/20/17 14:58 [id number] Blood Pressure Blood Pressure (100/60-150/90) 110/46 IVP Administration Document 05/20/17 14:57 (Rec: 05/20/17 14:58 [id number] Charges for Administration # of IVP Administrations 1 - Scribe Statement The provider has reviewed the documentation as recorded by the Dontrelliblois Mabry Provider Scribe Attestation: All medical record entries made by the Scribe were at my direction and personally dictated by me. I have reviewed the chart and agree that the record accurately reflects my personal performance of the history, physical exam, medical decision making, and the department course for this patient. I have also personally directed, reviewed, and agree with the discharge instructions and disposition. Disposition/Present on Arrival - Present on Arrival Any Indicators Present on Arrival: No History of DVT/PE: No History of Uncontrolled Diabetes: No Urinary Catheter: No History Surgical Site Infection Following: None - Disposition Have Diagnosis and Disposition been Completed?: Yes Diagnosis: CHF exacerbation Disposition: HOSPITALIZED Disposition Time: 14:43 Condition: STABLE
[2017-05-20 13:55] LABS: BASO # 0.01 K/mm3 (0.0-2.0); BASO % 0.2 % (0.0-3.0); EOS # 0.2 (0.0-0.7); EOS % 4.9 % (1.5-5.0); GRAN # 2.69 (1.4-6.5); HEMATOCRIT 33.2 % (42.0-52.0); LYMPH # 1.1 (1.2-3.4); LYMPH % 23.5 % (22.0-35.0); MEAN CELL VOLUME 95.7 fl (80.0-105.0); MEAN CORPUSCULAR HEMOGLOBIN 31.4 pg (25.0-35.0); MEAN CORPUSCULAR HGB CONC 32.8 g/dl (31.0-37.0); MEAN PLATELET VOLUME 11.8 fl (7.0-11.0); MONO # 0.7 (0.1-0.6); MONO % 14.4 % (1.0-6.0); RED CELL DISTRIBUTION WIDTH 13.9 % (11.5-14.5); WHITE BLOOD COUNT 4.7 10^3/ul (4.5-11.0)
[2017-05-20 14:05] LABS: ALB/GLOB RATIO 1.2 (1.1-1.8); ALKALINE PHOSPHATASE 149 U/L (38-126); ALT/SGPT 138 U/L (7-56); AST/SGOT 90 U/L (17-59); BLOOD UREA NITROGEN 27 mg/dL (7-21); CALCIUM 8.9 mg/dL (8.4-10.5); CARBON DIOXIDE 25 mmol/L (21-33); CHLORIDE 105 mmol/L (98-107); GFR AFRICAN-AMERICAN > 60; GLUCOSE,RANDOM 262 mg/dL (70-110); SODIUM 140 mmol/L (132-148); TOTAL PROTEIN 6.1 g/dL (5.8-8.3)
--- NOTE | 2017-05-20 14:05 | RAD ---
HISTORY: sob COMPARISON: 05/05/2017 FINDINGS: LUNGS: No active pulmonary disease. PLEURA: No significant pleural effusion identified, no pneumothorax apparent. CARDIOVASCULAR: Mild cardiomegaly. Cardiac valvular prosthesis noted. Sternotomy wires noted. OSSEOUS STRUCTURES: No significant abnormalities. VISUALIZED UPPER ABDOMEN: Normal. OTHER FINDINGS: None. IMPRESSION: No active disease.
[2017-05-20 14:16] LABS: TROPONIN I 0.02 ng/mL
[2017-05-20] MEDS ORDERED: Albuterol-Ipratrop 3 mg / 0.5 (3 ml) UD IH PRN (15:13)
[2017-05-20 16:19] LABS: VENOUS BLOOD GAS BASE EXCESS 3.8 mmol/L (0.0-2.0); VENOUS BLOOD PH 7.35 (7.32-7.43)
--- NOTE | 2017-05-20 16:33 | CP.PCM.HP ---
<Delmar Fleming - Last Filed: 05/20/17 18:12> History of Present Illness - History of Present Illness History of Present Illness: 82 year old [place] with a past medical history of pulmonary hypertension, hypertension, CAD, DM II, congested heart failure, s/p CABG and aortic valve replacement (bioprosthetic) who presents with 2 weeks of worsening dyspnea on exertion, increased lower extremity edema, and substantial weight gain. He states he is only able to walk 2 steps with his walker before getting short of breath, and in the past two nights has had four to five episodes of paroxysmal nocturnal dyspnea while using two pillows. He denies any fever, chills, chest pain, nausea, diaphoresis, or cough. PMD: Dr. Booker PSH: CABG in 1999 and aortic valve replacement in 2006, left femoral neck fracture ORIF PMH: as above Allergies: NKDA Medications: Reviewed Present on Admission - Present on Admission Any Indicators Present on Admission: No Review of Systems - Constitutional Constitutional: As Per HPI - Cardiovascular Cardiovascular: Dyspnea on Exertion, Paroxysmal Nocturnal Dyspnea. absent: Chest Pain at Rest, Irregular Heart Rhythm, Palpitations - Respiratory Respiratory: Dyspnea, Dyspnea on Exertion - Gastrointestinal Gastrointestinal: absent: Abdominal Pain - Genitourinary Genitourinary: absent: As Per HPI, Change in Urinary Stream, Difficulty Urinating - Musculoskeletal Musculoskeletal: absent: Deformity, Joint Swelling, Limited Range of Motion - Integumentary Integumentary: absent: Acne, Alopecia, Bleeding Lesions - Neurological Neurological: absent: Abnormal Hearing, Abnormal Movements, Burning Sensations - Psychiatric Psychiatric: absent: Abnormal Sleep Pattern, Anhedonia, Behavioral Changes - Endocrine Endocrine: absent: Change in Body Appearance, Change in Libido, Heat Intolorance - Hematologic/Lymphatic Hematologic: absent: Easy Bleeding, Easy Bruising Past Patient History - Infectious Disease Hx of Infectious Diseases: None - Tetanus Immunizations Tetanus Immunization: Unknown - Past Medical History & Family History Past Medical History?: Yes - Past Social History Smoking Status: Never Smoked - CARDIAC Hx Congestive Heart Failure: Yes Hx Hypertension: Yes (Pulmonary HTN) - PULMONARY Hx Chronic Obstructive Pulmonary Disease (COPD): Yes - NEUROLOGICAL HX Cerebrovascular Accident: Yes - HEENT Hx HEENT Problems: Yes Hx Glaucoma: Yes - RENAL Hx Chronic Kidney Disease: No - ENDOCRINE/METABOLIC Hx Diabetes Mellitus Type 2: Yes - HEMATOLOGICAL/ONCOLOGICAL Hx Blood Disorders: Yes (blood transfusion) - INTEGUMENTARY Hx Dermatological Problems: No - MUSCULOSKELETAL/RHEUMATOLOGICAL Hx Falls: Yes - GASTROINTESTINAL Hx Gastrointestinal Disorders: Yes (CONSTIPATION) Hx Gastroesophageal Reflux: Yes - GENITOURINARY/GYNECOLOGICAL Hx Genitourinary Disorders: Yes (ERECTILE DYSFUNCTION) Hx Prostate Problems: Yes - PSYCHIATRIC Hx Psychophysiologic Disorder: Yes (MEMORY LOSS) Hx Anxiety: Yes Hx Depression: Yes Hx Substance Use: No - SURGICAL HISTORY Hx Coronary Artery Bypass Graft: Yes (aortic valve replacement) - ANESTHESIA Hx Anesthesia: Yes Hx Anesthesia Reactions: No Hx Malignant Hyperthermia: No Meds Allergies/Adverse Reactions: Allergies Allergy/AdvReac Type Severity Reaction Status Date / Time No Known Allergies Allergy Verified 05/20/17 19:36 Physical Exam - Constitutional Appears: Non-toxic, No Acute Distress - Head Exam Head Exam: ATRAUMATIC, NORMOCEPHALIC - Eye Exam Eye Exam: EOMI, Normal appearance, PERRL - ENT Exam ENT Exam: Mucous Membranes Moist, Normal Oropharynx - Neck Exam Neck exam: Positive for: Normal Inspection Additional comments: elevation in jugular veins with deep palpation to the RUQ - Respiratory Exam Respiratory Exam: Rales Additional comments: right lung base - Cardiovascular Exam Cardiovascular Exam: RRR, +S1, +S2 - GI/Abdominal Exam GI & Abdominal Exam: Normal Bowel Sounds, Soft, Tenderness (RUQ). absent: Distended - Extremities Exam Extremities exam: Positive for: pedal edema (2/4) - Back Exam Back exam: NORMAL INSPECTION. absent: CVA tenderness (L), CVA tenderness (R) - Neurological Exam Neurological exam: Alert, CN II-XII Intact, Oriented x3 - Psychiatric Exam Psychiatric exam: Normal Affect, Normal Mood - Skin Skin Exam: Dry, Intact, Normal Color, Warm Results - Vital Signs Recent Vital Signs: Last Vital Signs Temp 98.1 F 05/20/17 15:26 Pulse 76 05/20/17 15:26 Resp 20 05/20/17 15:32 BP 120/43 L 05/20/17 15:26 Pulse Ox 97 05/20/17 15:26 - Labs Result Diagrams: 05/20/17 13:40 05/20/17 13:40 Labs: Laboratory Results - last 24 hr 05/20/17 16:00 pO2 43 VBG pH 7.35 VBG pCO2 56.0 VBG HCO3 30.9 H VBG O2 Sat (Calc) 79.7 H VBG Base Excess 3.8 H - EKG Data EKG comments: no acute ST-T wave changes, right axis deviation Assessment & Plan - Assessment and Plan (Free Text) Assessment: 1) CHF exacerbation in a patient with significant pulmonary hypertension, CAD, and secondary congestive hepatopathy - NT-Pro-BNP elevated at 2810 - Ipratropium Bivins/Albuterol 3ml IH Q6h PRN - Chest X-ray shows vascular congestion and cardiomegaly. - Dr. Sosa/Erin consulted - Dr. Bustos pin sorter and bagger consulted - Elevated LFTs, likely secondary to increased passive venous congestion, will follow up with next day CMP and order Abdominal US and hepatitis panel - EKG showed no ST-T wave changes or changes compared to prior; will trend troponin I q8h - Lasix 20 mg IVP q12h - Strict I/O - HHD with low sodium - HOB at 30 degrees - Continue 10 mg PO of Montelukast - Daily weight checks (standing scale) 2) DM II with peripheral neuropathy - Humalog (low) ISS with Fingerstick blood glucose after each meal - Neurontin 300 mg PO daily 3) Dyslipidemia - Atorvastatin 40 mg PO HS - Lovaza 1 gm BID Daily - Niacin 500 mg BID 4) Depression - 40 mg Prozac - 15 mg of Mirtazapine daily 5) Glaucoma - Latanoprost 1 drop in each eye HS - Ocuvite 6) Insomnia Ambien 10 mg PO HS PRN for insomnia - Date & Time Date: 05/20/17 Time: 18:17 Decision To Admit - Pt Status Changed To: Hospital Disposition Of: Inpatient Admission - Admit Certification Admit to Inpatient:: After my assessment, the patient will require hospitalization for at least two midnights. This is because of the severity of symptoms shown, intensity of services needed, and/or the medical risk in this patient being treated as an outpatient. - . Bed Request Type: Remote Telemetry Admitting Physician: Ania Ferguson <Anai Ferguson - Last Filed: 05/20/17 21:33> Results - Vital Signs Recent Vital Signs: Last Vital Signs Temp 98.6 F 05/20/17 20:34 Pulse 71 05/20/17 20:34 Resp 20 05/20/17 20:34 BP 131/81 05/20/17 20:34 Pulse Ox 98 05/20/17 16:00 - Labs Result Diagrams: 05/20/17 13:40 05/20/17 13:40 Labs: Laboratory Results - last 24 hr 05/20/17 05/20/17 16:00 20:37 pO2 43 VBG pH 7.35 VBG pCO2 56.0 VBG HCO3 30.9 H VBG O2 Sat (Calc) 79.7 H VBG Base Excess 3.8 H Troponin I 0.02 Attending/Attestation - Attestation I have personally seen and examined this patient.: Yes I have fully participated in the care of the patient.: Yes I have reviewed all pertinent clinical information: Yes Notes (Text): 05/20/17 21:28 82 year old male with past medical history of pulmonary hypertension, hypertension, diabetes, CAD, AVR and probable diastolic CHF who presents with progressive dyspnea on exertion and LE edema. Found to have elevated prbnp. Recent echo also reviewed showing severe pulmonary hypertension. Will admit to telemetry unit. Serial cardiac enzymes are ordered. Continue with iv lasix. Cardiology and pulmonary evaluation were requested. He also has elevated LFTs. Hepatitis panel and abdominal ultrasound are ordered. Will hold his statin for now and check lipid panel. Will trend his LFTs. Continue with insulin ss for diabetes. Anai Ferguson MD Hospitalist.
[2017-05-20] MEDS: Omega-3-Acid Ethyl Esters 1 GM Cap PO SCH (17:20)
[2017-05-20 17:25] LABS: MAGNESIUM 1.8 mg/dL (1.7-2.2); PHOSPHOROUS 3.1 mg/dL (2.5-4.5)
[2017-05-20 20:58] VITALS: BMI 25.8
[2017-05-20] MEDS ORDERED: Pneumococcal 23-Valent Vaccine IM ONE (20:58)
[2017-05-20] MEDS ORDERED: Influenza Vaccine 60 mcg/0.5 mL SYR (4YR UP) IM ONE (20:58)
[2017-05-20] MEDS: Insulin Lispro (humaLOG) LOW Coverage SC SCH (21:26)
[2017-05-20] MEDS: Latanoprost 2.5 ml Opht Soln OU SCH (21:27)
[2017-05-20] MEDS: DOBUTamine 500mg/250ml D5W 500 MG/250 ML BAG IV SCH (22:48)
[2017-05-21 03:57] LABS: BASO # 0.02 K/mm3 (0.0-2.0); BASO % 0.4 % (0.0-3.0); EOS # 0.2 (0.0-0.7); EOS % 4.5 % (1.5-5.0); GRAN # 3.09 (1.4-6.5); GRAN % 58.5 % (50.0-68.0); HEMATOCRIT 30.5 % (42.0-52.0); LYMPH # 1.3 (1.2-3.4); LYMPH % 25.3 % (22.0-35.0); MEAN CELL VOLUME 95.6 fl (80.0-105.0); MEAN CORPUSCULAR HGB CONC 33.4 g/dl (31.0-37.0); MEAN PLATELET VOLUME 11.2 fl (7.0-11.0); MONO # 0.6 (0.1-0.6); MONO % 11.3 % (1.0-6.0); RED CELL DISTRIBUTION WIDTH 14.1 % (11.5-14.5); WHITE BLOOD COUNT 5.3 10^3/ul (4.5-11.0)
[2017-05-21 04:10] LABS: TROPONIN I 0.02 ng/mL
[2017-05-21 04:22] LABS: ALB/GLOB RATIO 1.1 (1.1-1.8); ALKALINE PHOSPHATASE 131 U/L (38-126); ALT/SGPT 113 U/L (7-56); AST/SGOT 71 U/L (17-59); BLOOD UREA NITROGEN 28 mg/dL (7-21); CALCIUM 8.5 mg/dL (8.4-10.5); CARBON DIOXIDE 29 mmol/L (21-33); CHLORIDE 104 mmol/L (98-107); CHOLESTEROL 73 mg/dL (130-200); GFR AFRICAN-AMERICAN > 60; GLUCOSE,RANDOM 122 mg/dL (70-110); POTASSIUM 3.5 mmol/L (3.6-5.0); SODIUM 140 mmol/L (132-148); TOTAL PROTEIN 5.5 g/dL (5.8-8.3)
[2017-05-21] MEDS ORDERED: Potassium Chloride 20 mEq/15 ml LIQ UD PO ONE (05:18)
[2017-05-21] MEDS: Pantoprazole 40 mg EC Tab PO SCH (05:30)
[2017-05-21] MEDS ORDERED: Potassium Chloride 20 mEq ER Tab PO ONE (07:26)
[2017-05-21] MEDS: Insulin Lispro (humaLOG) LOW Coverage SC SCH ×4 (07:38→22:00)
--- NOTE | 2017-05-21 07:43 | CARD ---
APPROVED REPORT EKG Measurement Heart [id number] <Conclusion> Sinus rhythm with 1st degree AV block Right superior axis deviation Inferior-posterior infarct, age undetermined Abnormal ECG
--- NOTE | 2017-05-21 09:58 | CON ---
DATE: 05/20/2017 PULMONARY CONSULTATION REFERRING PHYSICIAN: . REASON FOR CONSULTATION: Shortness of breath and pulmonary hypertension. 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 He had extensive cardiac disease including ischemic heart disease, requiring coronary artery bypass surgery, history of valve replacement and has a bioprosthetic valve, hypertension, diabetes, just recently discharged from the hospital after heart failure treatment. Had a stress thallium done, which was unremarkable for any significant ischemia. Also, echocardiogram done, which shows severe pulmonary hypertension. He had a venous Doppler, which has been reported unremarkable. He comes in with short of breath with minimal exertion. There is no cough. No sputum production. No hemoptysis. No hematemesis. No hematuria. He has leg swelling. PAST MEDICAL HISTORY: Cardiomyopathy with coronary artery disease, history of coronary artery bypass surgery, valvular heart disease, status post valve replacement, severe pulmonary hypertension, hypertension, diabetes, history of snoring and daytime sleepiness. ALLERGIES: NONE KNOWN. SOCIAL HISTORY: Nonsmoker, nondrinker. FAMILY HISTORY: No significant cardiopulmonary disease reported. MEDICATIONS: He is on Ambien 10 mg at bedtime p.r.n., albuterol/Atrovent nebulizer q.6 hour p.r.n., Ecotrin 81 mg daily, insulin coverage, Lasix 20 mg IV q.12 hours, Lovaza 1 g twice a day, Lovenox 40 mg daily, gabapentin 300 mg was given, Plavix 75 mg daily, Protonix 40 mg daily, Prozac 40 mg daily, and Remeron 50 mg at bedtime. REVIEW OF SYSTEMS: No headache. No rhinitis. Short of breath with minimal exertion. Admitted to have snoring and daytime sleepiness. No chest pain. No nausea. No vomiting. No diarrhea. No dysuria. Does have leg swelling. PHYSICAL EXAMINATION: GENERAL: Lying in the bed, has shortness of breath. VITAL SIGNS: Temperature 98, heart rate 71, respiratory rate is 20, blood pressure 131/81, pulse ox 97% on 2 L nasal cannula. HEENT: Moist mucous membranes. Crowded airway. NECK: Supple. No JVD. LUNGS: Have a few crackles at the bases. HEART: S1 and S2. ABDOMEN: Soft and nontender. No organomegaly. EXTREMITIES: Does have edema. NEUROLOGIC: Awake and follow simple commands. LABORATORY DATA: Shows hemoglobin 10.9, hematocrit 33.2, WBC 4.7, platelets is 149,000. He had ABG done which shows pH 7.35, pCO2 of 56, and O2 of 43. Sodium 140, potassium 4.0, chloride 105, bicarbonate 25, BUN 27, creatinine 1.0, glucose is 262, calcium 8.9, phosphorus 3.1, magnesium 1.8, AST 90, ALT 138, alkaline phosphatase is 149, troponin 0.02, proBNP 2810, albumin is 3.4. Chest x-ray done in ER today shows mild cardiomegaly, cardiac valvular prosthesis, otherwise unremarkable. IMPRESSION AND PLAN: Cardiomyopathy, valvular heart disease, history of valve replacement, coronary artery bypass surgery in the remote past, severe pulmonary hypertension, diabetes, hypertension, may have a component of sleep apnea syndrome. I spoke to patient and patient's at bedside, all the questions answered. We will order CTA to assure there is no thromboembolic disease. As a matter of fact, we will order V/Q scan so I can look at the small airways. We will start on dobutamine 2.5 mcg/kg per minute. Keep under telemetry. Also, increase Lasix 20 mg to q.8 hours. We will need to add pulmonary vasodilators. Also, we will place patient on continuous positive airway pressure 8 cm with 30% oxygen while sleeping. He will need to attend sleep study upon discharge as an outpatient. Followup labs in the morning. Thank you and we will follow with you. Guru Bustos MD
--- NOTE | 2017-05-21 10:41 | US ---
HISTORY: RUQ pain, elevated LFT COMPARISON: 06/30/2013 abdominal ultrasound TECHNIQUE: Sonographic evaluation of the abdomen. FINDINGS: LIVER: Measures 16.4 cm on this exam size is within normal limits. Normal echogenicity of the liver parenchyma. No mass. No intrahepatic bile duct dilatation. GALLBLADDER: Multiple gallstones are renoted. No gallbladder wall thickening or positive sonographic Benavidez sign COMMON BILE DUCT: Measures 3.8 mm. No stones. No dilatation. PANCREAS: Unremarkable as visualized. No mass. No ductal dilatation. RIGHT KIDNEY: Measures 10.9 x 4.6 x 4.7cm. Normal echogenicity. No calculus, mass, or hydronephrosis. LEFT KIDNEY: Measures 10.7 x 4.4 x 4.7cm. Normal echogenicity. No calculus, mass, or hydronephrosis. No definitive shadowing stones are seen on this exam SPLEEN: Normal in size and contour. No mass. AORTA: No aneurysmal dilatation. IVC: Unremarkable. OTHER FINDINGS: Pleural effusions -left greater than right IMPRESSION: Bilateral pleural effusions left greater than right. No prior mention of this previously Gallstones renoted no secondary signs to suggest acute cholecystitis. No dilated ducts. Remarkable liver- current size within normal limits On this exam no shadowing left renal stones appreciated .
[2017-05-21] MEDS: Multivitamin With Minerals Tab PO SCH (10:52)
[2017-05-21] MEDS: Enoxaparin 40 mg Syringe SC SCH (10:53)
[2017-05-21] MEDS: Omega-3-Acid Ethyl Esters 1 GM Cap PO SCH ×2 (10:53→17:07)
[2017-05-21] MEDS: Magnesium Oxide 400 mg Tab UD PO SCH (12:06)
--- NOTE | 2017-05-21 14:22 | CP.PCM.PN ---
<Delmar Fleming - Last Filed: 05/21/17 15:25> Subjective - Date & Time of Evaluation Date of Evaluation: 05/21/17 Time of Evaluation: 07:40 - Subjective Subjective: Delmar Fleming DO, PGY-1, Hospitalist Service Patient seen and examined at bedside. Patient reports somewhat improvement in his breathing status. He denies chest pain, nausea, vomiting, and diarrhea. Objective - Vital Signs/Intake and Output Vital Signs (last 24 hours): Temp Pulse Resp BP Pulse Ox 97.4 F L 84 24 143/76 95 05/21/17 12:00 05/21/17 12:00 05/21/17 12:00 05/21/17 10:53 05/21/17 05:57 Intake and Output: 05/21/17 05/21/17 06:59 18:59 Intake Total 240 Output Total 300 Balance -60 - Medications Medications: Current Medications Albuterol/Ipratropium (Duoneb 3 Mg/0.5 Mg (3 Ml) Ud) 3 ml IH Q6H PRN PRN Reason: Shortness of Breath Aspirin (Ecotrin) 81 mg PO DAILY [facility] Last Admin: 05/21/17 10:52 Dose: 81 mg Clopidogrel Bisulfate (Plavix) 75 mg PO DAILY [facility] Last Admin: 05/21/17 10:52 Dose: 75 mg Enoxaparin Sodium (Lovenox) 40 mg SC DAILY [facility] PRN Reason: Protocol Last Admin: 05/21/17 10:53 Dose: 40 mg Fluoxetine HCl (Prozac) 40 mg PO DAILY [facility] Last Admin: 05/21/17 10:52 Dose: 40 mg Furosemide (Lasix) 40 mg IVP Q12H [facility] Last Admin: 05/21/17 10:53 Dose: 40 mg Gabapentin (Neurontin) 300 mg PO [facility] PRN Reason: Protocol Dobutamine HCl/Dextrose (Dobutamine/Dextrose 5% 500mg/250ml) 500 mg in 250 mls @ 4.355 mls/hr IV .Q24H [facility] PRN Reason: 2 MCG/KG/MIN Last Admin: 05/20/17 22:48 Dose: 4.355 mls/hr Insulin Detemir (Levemir) 10 unit SC [facility] Insulin Human Lispro (Humalog Low) 0 units SC [facility] PRN Reason: Protocol Last Admin: 05/21/17 12:07 Dose: 1 units Latanoprost (Xalatan Opht) 0 ml OU HS [facility] Last Admin: 05/20/17 21:27 Dose: 2.5 ml Lisinopril (Zestril) 2.5 mg PO DAILY [facility] Magnesium Oxide (Mag-Ox) 400 mg PO DAILY [facility] Last Admin: 05/21/17 12:06 Dose: 400 mg Metoprolol Tartrate (Lopressor) 12.5 mg PO BID [facility] Mirtazapine (Remeron) 15 mg PO HS [facility] Last Admin: 05/20/17 21:27 Dose: 15 mg Montelukast Sodium (Singulair) 10 mg PO HS [facility] Multivitamins/Minerals (Therapeutic-M Tab) 1 tab PO 0800 [facility] Last Admin: 05/21/17 10:52 Dose: 1 tab Niacin (Niacin) 500 mg PO BID [facility] Last Admin: 05/21/17 12:06 Dose: Not Given Eybxx-1-Kuem Ethyl Esters (Lovaza) 1 gm PO BID [facility] Last Admin: 05/21/17 10:53 Dose: 1 gm Pantoprazole Sodium (Protonix Ec Tab) 40 mg PO 0600 [facility] Last Admin: 05/21/17 05:30 Dose: 40 mg Potassium Chloride (K-Dur 20 Meq Er Tab) 20 meq PO BRK [facility] Zolpidem Tartrate (Ambien) 10 mg PO HS PRN; Protocol PRN Reason: Insomnia Last Admin: 05/20/17 21:26 Dose: 10 mg - Labs Labs: 05/21/17 03:30 05/21/17 03:30 - Constitutional Appears: No Acute Distress - Head Exam Head Exam: ATRAUMATIC, NORMOCEPHALIC - Eye Exam Eye Exam: EOMI, Normal appearance, PERRL - ENT Exam ENT Exam: Mucous Membranes Moist, Normal Oropharynx - Neck Exam Neck Exam: Normal Inspection. absent: Thyromegaly - Respiratory Exam Respiratory Exam: Rales, Wheezes - Cardiovascular Exam Cardiovascular Exam: RRR, +S1, +S2 - GI/Abdominal Exam GI & Abdominal Exam: Soft, Normal Bowel Sounds - Rectal Exam Rectal Exam: NORMAL INSPECTION - Extremities Exam Extremities Exam: Normal Capillary Refill, Normal Inspection - Back Exam Back Exam: NORMAL INSPECTION. absent: CVA tenderness (L), CVA tenderness (R) - Neurological Exam Neurological Exam: Alert, Awake, CN II-XII Intact, Oriented x3 - Psychiatric Exam Psychiatric exam: Normal Affect, Normal Mood - Skin Skin Exam: Dry, Intact, Normal Color, Warm Assessment and Plan - Assessment and Plan (Free Text) Assessment: 82 year old male with past medical history of pulmonary hypertension, hypertension, diabetes, CAD, Aortic Valve Replacement and probable diastolic CHF who presents with progressive dyspnea on exertion and increasing lower extremity edema who was found to have elevated NT-Pro-BNP and chest X-ray consistent with a CHF exacerbation. Plan: 1) CHF exacerbation in a patient with significant pulmonary hypertension - V/Q scan ordered to evaluate for chronic pulmonary embolism causing pulmonary hypertension. - Chest X-ray shows vascular congestion and cardiomegaly - Abdominal US denotes bilateral pleural effusion, left greater. - Ipratropium [place]/Albuterol q6h PRN - Chest X-ray shows vascular congestion and cardiomegaly. - Dobutamine drip - Lasix 40 mg IVP q12h - CPAP with 30% oxygen 1B) History of Asthma - Ipratropium [place]/Albuterol q6h PRN - 10 mg PO of Montelukast 1C) Elevated LFT's, not concerning and likely secondary to passive venous congestion. 2)DM II with peripheral neuropathy - Humalog (low) ISS with Fingerstick blood glucose after each meal - Levemir 10 mg HS - Neurontin 300 mg PO daily 3) Dyslipidemia and CAD - Atorvastatin 40 mg PO HS - Lovaza 1 gm BID Daily - Niacin 500 mg BID - Plavix 75 mg - Aspirin 81 mg 4) Depression - 40 mg Prozac - 15 mg of Mirtazapine daily 5) Glaucoma - Latanoprost 1 drop in each eye HS - Ocuvite 6) Insomnia Ambien 10 mg PO HS PRN for insomnia 7) DVT/GI - Enoxaparin 40 mg SC - Protonix 40 mg PO daily <Anai Ferguson - Last Filed: 05/21/17 15:53> Objective - Vital Signs/Intake and Output Vital Signs (last 24 hours): Temp Pulse Resp BP Pulse Ox 97.4 F L 88 24 143/76 95 05/21/17 12:00 05/21/17 14:00 05/21/17 12:00 05/21/17 10:53 05/21/17 05:57 Intake and Output: 12/06/17 12/06/17 06:59 18:59 Intake Total 240 Output Total 300 Balance -60 - Medications Medications: Current Medications Albuterol/Ipratropium (Duoneb 3 Mg/0.5 Mg (3 Ml) Ud) 3 ml IH Q6H PRN PRN Reason: Shortness of Breath Aspirin (Ecotrin) 81 mg PO DAILY [facility] Last Admin: 05/21/17 10:52 Dose: 81 mg Clopidogrel Bisulfate (Plavix) 75 mg PO DAILY [facility] Last Admin: 05/21/17 10:52 Dose: 75 mg Enoxaparin Sodium (Lovenox) 40 mg SC DAILY [facility] PRN Reason: Protocol Last Admin: 05/21/17 10:53 Dose: 40 mg Fluoxetine HCl (Prozac) 40 mg PO DAILY [facility] Last Admin: 05/21/17 10:52 Dose: 40 mg Furosemide (Lasix) 40 mg IVP Q12H [facility] Last Admin: 05/21/17 10:53 Dose: 40 mg Gabapentin (Neurontin) 300 mg PO HS [facility] PRN Reason: Protocol Dobutamine HCl/Dextrose (Dobutamine/Dextrose 5% 500mg/250ml) 500 mg in 250 mls @ 4.355 mls/hr IV .Q24H [facility] PRN Reason: 2 MCG/KG/MIN Last Admin: 05/20/17 22:48 Dose: 4.355 mls/hr Insulin Detemir (Levemir) 10 unit SC HS [facility] Insulin Human Lispro (Humalog Low) 0 units SC [facility] PRN Reason: Protocol Last Admin: 05/21/17 12:07 Dose: 1 units Latanoprost (Xalatan Opht) 0 ml OU HS [facility] Last Admin: 05/20/17 21:27 Dose: 2.5 ml Lisinopril (Zestril) 2.5 mg PO DAILY [facility] Magnesium Oxide (Mag-Ox) 400 mg PO DAILY [facility] Last Admin: 05/21/17 12:06 Dose: 400 mg Metoprolol Tartrate (Lopressor) 12.5 mg PO BID [facility] Mirtazapine (Remeron) 15 mg PO HS [facility] Last Admin: 05/20/17 21:27 Dose: 15 mg Montelukast Sodium (Singulair) 10 mg PO HS [facility] Multivitamins/Minerals (Therapeutic-M Tab) 1 tab PO 0800 [facility] Last Admin: 05/21/17 10:52 Dose: 1 tab Niacin (Niacin) 500 mg PO BID [facility] Last Admin: 05/21/17 12:06 Dose: Not Given Lbfae-2-Jkxa Ethyl Esters (Lovaza) 1 gm PO BID [facility] Last Admin: 05/21/17 10:53 Dose: 1 gm Pantoprazole Sodium (Protonix Ec Tab) 40 mg PO 0600 [facility] Last Admin: 05/21/17 05:30 Dose: 40 mg Potassium Chloride (K-Dur 20 Meq Er Tab) 20 meq PO BRK [facility] Zolpidem Tartrate (Ambien) 10 mg PO HS PRN; Protocol PRN Reason: Insomnia Last Admin: 05/20/17 21:26 Dose: 10 mg - Labs Labs: 05/21/17 03:30 05/21/17 03:30 Attending/Attestation - Attestation I have personally seen and examined this patient.: Yes I have fully participated in the care of the patient.: Yes I have reviewed all pertinent clinical information, including history, physical exam and plan: Yes Notes (Text): 05/21/17 15:51 82 year old male with past medical history of pulmonary hypertension, hypertension, diabetes, CAD, AVR and probable diastolic CHF who presented with progressive dyspnea on exertion and LE edema. He was found to have elevated prbnp. Recent echo also reviewed showing severe pulmonary hypertension. Cardiology and pulmonary evaluation were appreciated. He is on iv lasix bid and started on dobutamine drip. He also had elevated LFTs which are improving. Abdominal US reviewed which showed gallstones without evidence of cholecystitis. Hepatitis panel is pending. His statin is on hold for now. LDL was 56. Continue with levemir and insulin ss for diabetes. Will replete and repeat lytes. Anai Ferguson MD Hospitalist.
[2017-05-21] MEDS: Potassium Chloride 20 mEq ER Tab PO SCH (17:06)
--- NOTE | 2017-05-21 21:15 | CON ---
DATE: 05/21/2017 LOCATION: The patient is in room 372, bed 2. REASON FOR CONSULTATION: Shortness of breath, congestive heart failure, history of COPD, history of coronary artery bypass surgery, aortic valve replacement, mitral valve repair, hypertension, diabetes, hyperlipidemia. HISTORY OF PRESENT ILLNESS: An 82-year-old male who had one-vessel coronary artery bypass surgery, left radial to RCA, status post aortic valve replacement with bioprosthetic aortic valve and mitral valve repair with a ring placement, hypertension, diabetes, hyperlipidemia, peripheral neuropathy, dementia, adult deficit attention deficiency syndrome, admitted with shortness of breath of recent onset. He says he takes few steps short of breath. Denies any chest pain, denies any palpitation. PAST MEDICAL HISTORY: Positive for coronary artery bypass surgery, one vessel, left radial to RCA; AVR; mitral valve repair with a ring in 2006; history of diabetes; hypertension; hyperlipidemia; back surgery; laminectomy; peripheral neuropathy; adult deficit attention deficiency syndrome. Recently, he was admitted with CHF and was sent home. PERSONAL HISTORY: No history of smoking or drinking. ALLERGIES: THE PATIENT DENIES ANY ALLERGIES. HOME MEDICATIONS: The patient was on Revatio 20 mg p.o. daily, Neurontin 300 mg p.o. daily, Advair Diskus one puff b.i.d., Nexium 40 daily, Wellbutrin SR 75 b.i.d., Strattera 60 mg p.o. daily, magnesium oxide 400 mg b.i.d., niacin 500 mg b.i.d., Lipitor 40 daily, and metformin 850 b.i.d. REVIEW OF SYSTEMS: All the systems reviewed, positive mentioned in history, otherwise negative. PHYSICAL EXAMINATION: VITAL SIGNS: Blood pressure 143/76, early blood pressure 102/41, respirations 20, pulse 80, temperature 97.7. HEENT: Head is normocephalic. Eyes: Pupils normal. Conjunctivae slightly pale. NECK: JVP low. Carotid equal. THORAX: AP diameter normal. LUNGS: Bilateral basal rales. CARDIOVASCULAR: S1, S2. Bioprosthetic aortic valve sounds, no rub. ABDOMEN: Soft. No tenderness. No organomegaly. EXTREMITIES: No clubbing. No cyanosis. LABORATORY DATA: WBC 5.3, hemoglobin 10.2, hematocrit 30.5, platelet 153. Sodium 140, potassium 3.5, BUN 28, creatinine 1.2, magnesium 1.6, AST 71, ALT 113, alkaline phosphatase 131. Troponin x3 negative. Total protein 5.5, albumin 2.9. Chest x-ray is suggestive of congestive heart failure. EKG reveals sinus rhythm with first-degree AV block, right superior axis deviation, possible inferoposterior infarct, age undetermined. Abdominal ultrasound show bilateral pleural effusions, left greater than right and gallstones. The patient had a stress test on 05/06/2017, normal SPECT myocardial perfusion study with a normal left ventricular ejection fraction of 73%. Echocardiogram was done on 05/06/2017, which showed right ventricular systolic pressure of 151 mmHg, which is consistent with severe pulmonary hypertension. Left ventricle normal size, mild concentric left ventricular hypertrophy, [id number] aortic regurg, bioprosthetic aortic valve prosthesis in place. No mitral valve regurgitation noted, status post mitral valve repair, [id number] tricuspid regurgitation with RVSP of 151 mmHg, consistent with severe pulmonary hypertension, mild pulmonic valve regurgitation. IVC is dilated, flattening of the septum consistent with right ventricular volume and pressure overload. DIAGNOSES: Congestive heart failure, severe pulmonary hypertension, coronary artery disease, status post one-vessel bypass surgery, status post bioprosthetic aortic valve replacement, status post mitral valve repair with a ring insertion, hypertension, hyperlipidemia, diabetes mellitus, peripheral neuropathy, history of adult deficit attention deficiency syndrome, congestive heart failure on the basis of severe pulmonary hypertension and valvular heart disease, hypokalemia. PLAN: The patient already received potassium 40, we will give another 20 today and we will put on 20 mEq everyday. Lasix 40 mg IV q.12 hours. We will also add low-dose Lopressor 12.5 b.i.d. and also lisinopril 2.5 mg daily. The patient already on magnesium oxide 400 mg p.o. daily, insulin has been already ordered, aspirin 81 mg p.o. daily, dobutamine drip 2 mcg/kg/min, DuoNeb hand nebulizer therapy, Lovenox 40 subcutaneous daily, Neurontin 300 mg p.o. daily, Plavix 75 mg daily, Prozac 40 mg p.o. daily, Protonix 40 daily, Singulair 10 mg at bedtime, Remeron 15 mg p.o. at bedtime. We will monitor intake and output. We will repeat electrolytes, BUN in the morning and we will follow with you. Guru Khan MD
[2017-05-21] MEDS: Insulin Detemir 100 units/ml Vial (Levemir) SC SCH (22:02)
[2017-05-21] MEDS: Latanoprost 2.5 ml Opht Soln OU SCH (22:03)
[2017-05-21] MEDS: DOBUTamine 500mg/250ml D5W 500 MG/250 ML BAG IV SCH (22:12)
--- NOTE | 2017-05-22 03:27 | PN ---
PULMONARY PROGRESS NOTE DATE: 05/21/2017 SUBJECTIVE: He is lying in the bed. Night was much better. He was started on dobutamine and also started on BiPAP at night. Lasix has increased to 3 times a day. He feels much better. Still has a shortness of breath. No nausea. No vomiting. No diarrhea. No leg pain or leg swelling. PHYSICAL EXAMINATION: GENERAL: In no acute distress. VITAL SIGNS: Temperature is 98, heart rate is 73, respiratory rate is 20, blood pressure is 117/52, and pulse oximetry is 95% on 2 L nasal cannula. HEENT: Moist mucous membrane. Crowded airway. Mallampati score is 4. NECK: Supple. No JVD. LUNGS: Has a few scattered rhonchi. HEART: S1 and S2. ABDOMEN: Soft and nontender. No organomegaly. EXTREMITIES: No edema. NEUROLOGIC: Awake and alert. Follows simple commands. MEDICATIONS: He is on Ambien 10 mg at bedtime p.r.n., dobutamine was stopped, DuoNeb q.6 hours p.r.n., Ecotrin 81 mg daily, potassium 20 mEq daily, Lasix 40 mg twice a day, Levemir 10 units subcutaneously at bedtime, metoprolol tartarate 12.5 mg twice a day, Lovenox 40 mg subcutaneosly daily, magnesium oxide 400 mg daily, Neurontin 300 mg at bedtime, niacin 500 mg twice a day, Plavix 75 mg daily, Protonix 40 mg daily, Prozac 40 mg daily, Remeron 50 mg at bedtime, Singulair 10 mg daily, multivitamin daily, and Zestril 2.5 mg daily. LABORATORY DATA: Shows hemoglobin 10.2, hematocrit 30.5, WBC 5.3, and platelet is 153. Sodium 140, potassium 3.5, chloride 104, bicarbonate 29, BUN 28, creatinine 1.2, glucose 122, calcium 8.5, and magnesium 1.6. AST 71, ALT 113, alk phos is 131, total protein 5.5, albumin 2.9, and cholesterol is 73. IMPRESSION AND PLAN: Cardiomyopathy, valvular heart disease, severe pulmonary hypertension, history of valve replacement, coronary artery bypass surgery in the remote past, diabetes, and may have sleep apnea syndrome. Case discussed with Dr. Booker in detail. V/Q scan to rule out thromboembolic disease. 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 Dobutamine will help the right heart function as long as there is no arrhythmia. Keep head elevated at 45 degrees. . Followup labs in the morning. Thank you and we will follow with you. Guru Bustos MD
[2017-05-22] MEDS: Pantoprazole 40 mg EC Tab PO SCH (05:14)
[2017-05-22 06:31] LABS: BASO # 0.02 K/mm3 (0.0-2.0); BASO % 0.5 % (0.0-3.0); EOS # 0.3 (0.0-0.7); EOS % 6.9 % (1.5-5.0); GRAN # 2.43 (1.4-6.5); GRAN % 55.8 % (50.0-68.0); LYMPH % 22.3 % (22.0-35.0); MEAN CELL VOLUME 95.4 fl (80.0-105.0); MEAN CORPUSCULAR HEMOGLOBIN 31.5 pg (25.0-35.0); MEAN PLATELET VOLUME 11.6 fl (7.0-11.0); MONO # 0.6 (0.1-0.6); MONO % 14.5 % (1.0-6.0); RED CELL DISTRIBUTION WIDTH 13.9 % (11.5-14.5); WHITE BLOOD COUNT 4.4 10^3/ul (4.5-11.0)
[2017-05-22] MEDS: Insulin Lispro (humaLOG) LOW Coverage SC SCH ×3 (08:12→16:57)
[2017-05-22 08:15] LABS: ALB/GLOB RATIO 1.1 (1.1-1.8); ALKALINE PHOSPHATASE 112 U/L (38-126); ALT/SGPT 95 U/L (7-56); AST/SGOT 59 U/L (17-59); BLOOD UREA NITROGEN 28 mg/dL (7-21); CARBON DIOXIDE 35 mmol/L (21-33); CHLORIDE 99 mmol/L (98-107); GFR AFRICAN-AMERICAN > 60; GLUCOSE,RANDOM 67 mg/dL (70-110); POTASSIUM 3.9 mmol/L (3.6-5.0); SODIUM 139 mmol/L (132-148)
--- NOTE | 2017-05-22 08:23 | NM ---
COMPARISON: Portable chest 05/20/2017 TECHNIQUE: 40.0 mCi technetium 99-m DTPA inhaled 5.03 mCI technetium 99-m MAA administered intravenously. FINDINGS: VENTILATION COMPONENT: Normal. PERFUSION COMPONENT: Normal. IMPRESSION: Lowprobability ventilation perfusion scan for pulmonary embolism.
[2017-05-22] MEDS: Potassium Chloride 20 mEq ER Tab PO SCH (08:43)
[2017-05-22] MEDS: Multivitamin With Minerals Tab PO SCH (08:43)
[2017-05-22] MEDS: Magnesium Oxide 400 mg Tab UD PO SCH (10:24)
[2017-05-22] MEDS: Omega-3-Acid Ethyl Esters 1 GM Cap PO SCH ×2 (10:25→17:41)
[2017-05-22] MEDS: Enoxaparin 40 mg Syringe SC SCH (10:26)
--- NOTE | 2017-05-22 14:27 | PN ---
DATE: 05/20/2017 SUBJECTIVE: The patient came in with respiratory distress. He is an 82-year-old male with pulmonary hypertension on the last echo. He was admitted a week ago or more for dyspnea and cardiac workup including echocardiography that shows pulmonary hypertension. He was having COPD. He was given nebulizer treatment, inhaled bronchodilators and was also seen by cardiology, Dr. Sosa. His cardiac workup was stable except for pulmonary hypertension. His stress test was normal. No ischemia. His valve on the echo was normal. He does have a history of aortic valve replacement and mitral valve repair. His LV function, systolic function was good, and the patient after that discharged, came back because of his paroxysmal nocturnal dyspnea and dyspnea was also minimal with mild exertion. He was seen in the office and it was recommended for him to be admitted again for further evaluation. Please see Dr. Sosa's note for 05/20/2017. PHYSICAL EXAMINATION: VITAL SIGNS: Temperature 98, heart rate 120/43, respirations 20, saturations 2 liters 97%. HEAD AND NECK: Normal. No JVD. No thyromegaly. CHEST: Diminished breath sounds at the bases. Mild wheeze. CARDIAC: First sound and second sound normal. Systolic murmur in right aortic area. ABDOMEN: Soft. EXTREMITIES: Mild edema, left more than right. NEUROLOGIC: Normal. LABORATORY DATA: On 05/20/2017, white count 4.7, hemoglobin 10.9, hematocrit 33.2, and platelets 149. His chemistry is sodium 140, potassium 4, chloride 105, bicarbonate 25, BUN 27, and creatinine 1. His blood sugar of 262. His liver enzyme was elevated. BNP was 2800. Chest x-ray no active disease. IMPRESSION: Acute respiratory distress probably acute chronic obstructive pulmonary disease, acute right-sided heart failure, and severe pulmonary hypertension. PLAN: To get Pulmonary consult, IV Lasix, continue CPAP at night, inhaled bronchodilators, and oxygen. The patient should be maintained on his current medications, which is Zestril 2.5, monitor his blood pressure. Continue all other medications that he takes including Lasix, potassium, and insulin and we will follow up clinically. We will discuss surgery with Dr. Bustos. Case has been discussed with his son, Dr. Lorenzo, about his father and plan of treatment was expressed to him and also discussed with the patient in detail, discussed with Dr. Ferguson, and the case was discussed with Dr. Bustos. We will continue current management. We will follow up clinically. V/Q scan will be repeated. The patient did have previously a CT angiogram, which was negative for PE and venous Doppler of both legs was negative for DVT. Continue current therapy. We discussed the echo findings with Dr. Bustos and the pulmonary hypertension severity and the assumption that the pressure probably between 70s to 80s not more than that, within that range, it should not cross above 100. We will discuss with sales contract administrator, continue current therapy, continue GI and DVT prophylaxis. Arya Booker MD
--- NOTE | 2017-05-22 19:17 | PN ---
DATE: 05/22/2017 REASON FOR CONSULTATION: Shortness of breath, congestive heart failure, COPD, coronary artery disease, status post AVR, pulmonary hypertension, and mitral valve repair also. SUBJECTIVE: The patient denies any chest pain, but complains still short of breath. OBJECTIVE: GENERAL: Not in apparent distress. Lying flat in the bed. VITAL SIGNS: As follows; temperature afebrile, heart rate 76, and blood pressure 132/50. HEENT: PERRLA intact. NECK: Supple. No carotid bruit or thyromegaly. CHEST: Clear to auscultation. HEART: S1 and S2 regular. ABDOMEN: Soft. EXTREMITIES: Clubbing and cyanosis negative. LABORATORY DATA: Blood workup as follows; WBC , hemoglobin 10.1, hematocrit 33.0, and platelet count 161. Chemistries show sodium 130, potassium 3.9, chloride 99, carbon dioxide 35, anion gap of 9, BUN of 20, and creatinine of 1.1. 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 Admitted with decompensated congestive heart failure. The patient had open heart surgery in 2006. History of diabetes, hypertension, hyperlipidemia, and severe pulmonary hypertension. RECOMMENDATIONS: Continue gentle diuretics. Continue Lopressor. Continue lisinopril. Last echo on 05/06/2017 shows RV systolic pressure of 151 consistent with severe pulmonary hypertension, [id number] aortic regurgitation, and bioprosthetic aortic valve replacement. No mitral valve regurgitation noted, status post MV repair, [id number] tricuspid regurgitation, right ventricular systolic pressure of 51 consistent with severe pulmonary hypertension. The patient had SPECT study on 05/06/2017, normal myocardial perfusion study, ejection fracture of 73%. The patient has essentially right heart failure with severe pulmonary hypertension. Dobutrex was started by Dr. Bustos at 2 mcg, continue diuresis. Continue DVT prophylaxis. We will follow up electrolytes and supplement as needed. We will follow with you. Thank you Dr. Booker for providing us the opportunity in taking care of the patient, Emory Arboleda. Guru Sosa MD
[2017-05-22] MEDS: Insulin Detemir 100 units/ml Vial (Levemir) SC SCH (23:21)
[2017-05-22] MEDS: Latanoprost 2.5 ml Opht Soln OU SCH (23:24)
--- NOTE | 2017-05-22 23:52 | PN ---
DATE: 05/22/2017 PULMONARY PROGRESS NOTE REFERRING PHYSICIAN: Dr. Booker. SUBJECTIVE: He is sitting side of the bed, having dinner. Night was unremarkable. Tolerated BiPAP well. Breathing is improved. No nausea. No vomiting. No diarrhea. No leg pain or leg swelling. PHYSICAL EXAMINATION GENERAL: In no acute distress. VITAL SIGNS: Temperature is 98, heart rate is 72, respiratory rate is 25, blood pressure is 118/54, and pulse oximetry is 92% on nasal cannula. HEENT: Moist mucous membrane. Crowded airway. Mallampati score is 4. NECK: Supple. No JVD. LUNGS: Has a few crackles. HEART: S1 and S2. ABDOMEN: Soft and nontender. No organomegaly. EXTREMITIES: There is no much edema. NEUROLOGICAL: Awake and alert. Follows simple commands. LABORATORY DATA: Microbiology, hemoglobin is 10.9, hematocrit is 33.0, WBC is 4.4, and platelet is 161. Sodium 139, potassium 2.9, chloride 99, bicarbonate 28, BUN 28, creatinine 1.1, glucose 67, calcium 9.0, AST 59, ALT 95, alk phos is 112, albumin is 3.2. MEDICATIONS: Reviewed and noted. Ambien 10 mg at bedtime p.r.n., dobutamine 2.5 mcg/kg per minute, DuoNeb q. 6 hours p.r.n., Ecotrin 81 mg daily, insulin coverage, potassium 20 mEq daily, Lasix 40 mg twice a day, Levemir 10 units subcutaneously at bedtime, metoprolol tartrate 12.5 mg twice a day, Lovaza 1 g twice a day, Lovenox 40 mg subcutaneously daily, magnesium oxide 400 mg daily, Neurontin 300 mg at bedtime, niacin 500 mg daily, Plavix 75 mg daily, Protonix 40 mg daily, Prozac 40 mg daily, Remeron 15 mg at bedtime, Singulair 10 mg daily, multivitamin daily, and Zestril 2.5 mg daily. IMPRESSION: Cardiomyopathy with valvular heart disease, severe pulmonary hypertension, history of valve replacement, coronary artery disease, history of coronary artery bypass surgery, diabetes, and may have sleep apnea syndrome. V/Q scan was unremarkable for thromboembolic disease. Clinically, he is improved. Continue dobutamine. Continue diuretics. May continue BiPAP while sleeping. Followup electrolytes in the morning. We will start cardiac rehab. Thank you and we will follow with you. Guru Bustos MD
[2017-05-23] MEDS: DOBUTamine 500mg/250ml D5W 500 MG/250 ML BAG IV SCH ×2 (00:07→06:03)
[2017-05-23] MEDS: Insulin Lispro (humaLOG) LOW Coverage SC SCH ×5 (00:08→21:47)
[2017-05-23] MEDS: Pantoprazole 40 mg EC Tab PO SCH (05:14)
[2017-05-23 07:35] LABS: ALKALINE PHOSPHATASE 115 U/L (38-126); ALT/SGPT 82 U/L (7-56); AST/SGOT 52 U/L (17-59); BILIRUBIN,TOTAL 0.6 mg/dL (0.2-1.3); BLOOD UREA NITROGEN 31 mg/dL (7-21); CALCIUM 8.5 mg/dL (8.4-10.5); CARBON DIOXIDE 29 mmol/L (21-33); CHLORIDE 97 mmol/L (98-107); GFR AFRICAN-AMERICAN > 60; GLUCOSE,RANDOM 136 mg/dL (70-110); MAGNESIUM 1.7 mg/dL (1.7-2.2); POTASSIUM 4.1 mmol/L (3.6-5.0); SODIUM 133 mmol/L (132-148); TOTAL PROTEIN 5.9 g/dL (5.8-8.3)
[2017-05-23 07:40] LABS: BASO # 0.02 K/mm3 (0.0-2.0); BASO % 0.5 % (0.0-3.0); EOS # 0.3 (0.0-0.7); EOS % 7.4 % (1.5-5.0); GRAN # 2.07 (1.4-6.5); GRAN % 50.7 % (50.0-68.0); HEMATOCRIT 31.7 % (42.0-52.0); LYMPH # 1.1 (1.2-3.4); LYMPH % 27.7 % (22.0-35.0); MEAN CELL VOLUME 94.6 fl (80.0-105.0); MEAN CORPUSCULAR HEMOGLOBIN 31.3 pg (25.0-35.0); MEAN CORPUSCULAR HGB CONC 33.1 g/dl (31.0-37.0); MEAN PLATELET VOLUME 11.6 fl (7.0-11.0); MONO # 0.6 (0.1-0.6); MONO % 13.7 % (1.0-6.0); RED CELL DISTRIBUTION WIDTH 13.7 % (11.5-14.5); WHITE BLOOD COUNT 4.1 10^3/ul (4.5-11.0)
[2017-05-23] MEDS: Multivitamin With Minerals Tab PO SCH (08:27)
[2017-05-23] MEDS: Potassium Chloride 20 mEq ER Tab PO SCH (08:27)
[2017-05-23] MEDS: Omega-3-Acid Ethyl Esters 1 GM Cap PO SCH ×2 (10:33→17:54)
[2017-05-23] MEDS: Magnesium Oxide 400 mg Tab UD PO SCH (10:36)
[2017-05-23] MEDS: Enoxaparin 40 mg Syringe SC SCH (10:38)
--- NOTE | 2017-05-23 13:15 | PN ---
DATE: 05/22/2017 SUBJECTIVE: The patient is on the bedside. He is comfortable. No distress. His breathing much improved. No chest pain and he is breathing comfortably. He has no fever. No nausea. No vomiting. PHYSICAL EXAMINATION: VITAL SIGNS: On 05/22/2017 is as follows: Temperature 97.8, heart rate 73, blood pressure 118/54, respirations 18, and saturation 92%. HEAD AND NECK: Normal. No JVD. No thyromegaly. CHEST: Clear. Good air entry. CARDIAC: First sound and second sound normal. A systolic murmur in the aortic area. ABDOMEN: Soft and nontender. EXTREMITIES: No edema. NEUROLOGIC: Normal. LABORATORY DATA: White count 4.4, hemoglobin 10.9, hematocrit 33, and platelets 161. Chemistry show sodium 139, potassium 3.9, chloride 99, bicarb 35, BUN 28, and creatinine is 1.1. His random blood sugar is 191 and on repeat it was it was in the 160s and later 157. Total bilirubin normal. AST normal. ALT slightly elevated 95. Alkaline phosphatase is normal. IMPRESSION AND PLAN: 1. Right-sided heart failure, pulmonary hypertension, continue IV Dobutrex. The patient also currently on Lasix, seems doing well. We will continue current therapy. Continue gastrointestinal and deep vein thrombosis prophylaxis and monitor his electrolytes and vitals on daily basis. The patient is seen by Dr. Bustos, Pulmonary consults. 2. Chronic obstructive pulmonary disease, obstructive sleep apnea, continue BiPAP, continue bronchodilator, stable. 3. History of depression, seems stable. We will continue Prozac and Remeron, seems doing well. 4. Coronary artery disease. The patient seen by supervisor dock before. Left ventricular function is normal. No coronary artery ischemia and valves are functioning within reasonable range. The patient does have a history of aortic valve replacement and mitral valve repair. 5. Generalized weakness, diabetes. Continue physical therapy. Continue insulin. We will consider TCU evaluations. We will follow up with other consultants. Arya Booker MD
--- NOTE | 2017-05-23 17:04 | IP.NPCORE ---
Heart Failure Core Measure - Heart Failure Ejection Fraction: 40 % or Greater Left Ventricular Function to be assessed after discharge: Yes KENA Inhibitor Prescribed: Yes Beta-Jordyn Prescribed: Metoprolol Succinate Angiotensin II Receptor Jordyn Prescribed: No Contraindication/Reason for not providing: on ACEI AnticoagulationTherapy for Atrial Fibrillation/Atrialflutter: No Contraindication/Reason for not providing: no atrial fibrillation Aldosterone Antagonist Prescribed: No Contraindication/Reason for not providing: no ef above 40 Hydralazine Nitrate Prescribed: No Contraindication/Reason for not providing: on lasix iv Implantable Cardioverter Defibrillator Therapy: No Contraindication/Reason for not providing: not indicated Cardiac Resynchronization Therapy Prescribed: No Contraindication/Reason for not providing: not indicated - Follow up Will be discharged to: Home Follow Up Date (must be within 7 days from discharge): 05/30/17 (to be scheduled ) Follow Up Time: 09:00
[2017-05-23] MEDS ORDERED: Sildenafil 20 MG TAB PO SCH (18:00)
[2017-05-23] MEDS: Insulin Detemir 100 units/ml Vial (Levemir) SC SCH (22:12)
[2017-05-23] MEDS: Latanoprost 2.5 ml Opht Soln OU SCH (22:59)
--- NOTE | 2017-05-24 04:55 | PN ---
PULMONARY FOLLOWUP PROGRESS NOTE DATE: 05/23/2017 REFERRING PHYSICIAN: Dr. Ferguson. SUBJECTIVE: He is lying in the bed flat, feels much better. Tolerated BiPAP well. Breathing is improved. No nausea. No vomiting. No diarrhea. No leg pain or leg swelling. OBJECTIVE: GENERAL: In no acute distress. VITAL SIGNS: Temperature is 98, heart rate is 72, respiratory rate is 20, blood pressure is 112/49, pulse oximetry is 97% on nasal cannula. HEENT: Moist mucous membranes. Crowded airway. NECK: Supple. No JVD. LUNGS: Has a fair airflow with few rhonchi. HEART: S1 and S2. ABDOMEN: Soft and nontender. No organomegaly. EXTREMITIES: No edema. NEUROLOGICAL: Awake and alert. Follows simple commands. MEDICATIONS: He is on Ambien 10 mg at bedtime p.r.n.; DuoNeb q.6 hours p.r.n.; Ecotrin 81 mg daily; insulin coverage; potassium 20 mEq daily; Levemir 10 units subcutaneously at bedtime; metoprolol tartrate 12.5 mg twice a day; Lovaza 1 gm twice a day; Lovenox 40 mg daily; magnesium oxide 400 mg daily; gabapentin 300 mg at bedtime; niacin 500 mg twice a day; Protonix 40 mg daily; Prozac 40 mg daily; mirtazapine 15 mg at bedtime; Singulair 10 mg daily; multivitamins daily; Zestril 2.5 mg daily; Lasix 40 mg daily. LABORATORY DATA: Shows hemoglobin 10.5, hematocrit 31.7, WBC 4.1, platelet is 158. Sodium 133, potassium 4.1, chloride 97, bicarbonate is 29, BUN of 31, creatinine 1.2, glucose 136, phosphorus 4.0, magnesium 1.7, AST 52, ALT 82, alkaline phosphatase is 115, albumin is 3.0. IMPRESSION AND PLAN: Cardiomyopathy with valvular heart disease, severe pulmonary hypertension, history of valve replacement, coronary artery disease, history of diabetes, may have a sleep apnea syndrome. I spoke to nurse practitioner from the hospital. Apparently, dobutamine was discontinued. Blood pressure dropped later this afternoon and fluid boluses given. Present, he is much more comfortable. So, we will start him on Revatio 20 mg q.8 hours, may hold if systolic blood pressure is less than 110. Continue BiPAP while sleeping. May also start endothelin inhibitors upon discharge as an outpatient. Attend a sleep study. Thank you and we will follow with you. Guru Bustos MD
[2017-05-24] MEDS: Pantoprazole 40 mg EC Tab PO SCH (05:43)
[2017-05-24 08:32] LABS: ALB/GLOB RATIO 1.1 (1.1-1.8); ALKALINE PHOSPHATASE 127 U/L (38-126); ALT/SGPT 87 U/L (7-56); AST/SGOT 61 U/L (17-59); BILIRUBIN,TOTAL 0.6 mg/dL (0.2-1.3); BLOOD UREA NITROGEN 32 mg/dL (7-21); CALCIUM 8.8 mg/dL (8.4-10.5); CARBON DIOXIDE 29 mmol/L (21-33); CHLORIDE 98 mmol/L (98-107); GFR AFRICAN-AMERICAN > 60; GLUCOSE,RANDOM 102 mg/dL (70-110); POTASSIUM 4.4 mmol/L (3.6-5.0); SODIUM 134 mmol/L (132-148); TOTAL PROTEIN 6.3 g/dL (5.8-8.3)
[2017-05-24] MEDS: Insulin Lispro (humaLOG) LOW Coverage SC SCH ×4 (08:50→22:26)
[2017-05-24] MEDS: Magnesium Oxide 400 mg Tab UD PO SCH (09:55)
[2017-05-24] MEDS: Multivitamin With Minerals Tab PO SCH (09:56)
[2017-05-24] MEDS: Omega-3-Acid Ethyl Esters 1 GM Cap PO SCH ×2 (09:56→17:16)
[2017-05-24] MEDS: Sildenafil 20 MG TAB PO SCH ×3 (09:57→17:16)
[2017-05-24] MEDS: Enoxaparin 40 mg Syringe SC SCH (10:01)
--- NOTE | 2017-05-24 15:27 | PN ---
DATE: REASON FOR CONSULTATION AND FOLLOWUP: Shortness of breath, congestive heart failure, severe pulmonary hypertension, status post aortic valve replacement and status post mitral valve repair. SUBJECTIVE: The patient denies any chest pain, shortness of breath or any palpitation. Lying flat in the bed. OBJECTIVE/PHYSICAL EXAMINATION: As follows: GENERAL: Not in apparent distress. VITAL SIGNS: Temperature is afebrile, heart rate is 60, and blood pressure is 103/49. HEENT: PERRLA. Extraocular muscles are intact. NECK: Supple. No carotid bruit or thyromegaly. CHEST: Clear to auscultation. HEART: S1 and S2 regular. ABDOMEN: Soft. EXTREMITIES: Clubbing and cyanosis negative. LABORATORY DATA: Blood workup as follows; WBC of 4.9, hemoglobin of 10.9, hematocrit of 31.7, and platelet count of 158. Sodium of 134, potassium of 4.4, chloride of 98, carbon dioxide of 29, anion gap of 12, BUN of 32, and creatinine of 1.2. 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 Most recent echocardiography shows severe pulmonary hypertension and right ventricular systolic pressure of 151. The patient was on Dobutrex, yesterday it was discontinued in the process of being discharged home, but lateral on the patient dropped the blood pressure, 100 mL of fluid was given. The patient responded, now the patient is asymptomatic. RECOMMENDATIONS: Revatio that is sildenafil was started by Dr. Bustos, but the patient has a baseline low blood pressure, I am not sure, the patient is going to tolerate or not, we will follow with him. Overall, the patient's long-term prognosis is extremely guarded. Continue low-dose beta-jess. Continue DVT prophylaxis. Continue gentle diuretics as blood pressure is tolerated. If the patient can tolerate blood pressure, would be beneficial for him to be on Revatio, once the blood pressure is improved, we will put low-dose of diuretics. The patient was on Revatio at home. Once the pressure is stabilized, we will restart Revatio and we will resume when the blood pressure was stable, after that we will start low-dose of diuretics as well. We will follow with you. Thank you Dr. Booker for providing us the opportunity in taking care of the patient, Emory Arboleda. Guru Sosa MD
--- NOTE | 2017-05-24 18:57 | PN ---
PULMONARY PROGRESS NOTE DATE: 05/24/2017 REFERRING PHYSICIAN: Arya Booker MD SUBJECTIVE: He is lying in the bed, little more short of breath than yesterday. Remember dobutamine was discontinued yesterday. Revatio was added, but was hold yesterday because of low blood pressure. There is no cough and he is just short of breath. No nausea. No vomiting or diarrhea. No leg pain or leg swelling. OBJECTIVE: GENERAL: In no acute distress. VITAL SIGNS: Temperature is 98, heart rate is 68, respiratory rate is 20, blood pressure is 103/49, and pulse oximetry is 92% on 2 L nasal cannula. HEENT: Moist mucous membranes. Crowded airway. NECK: Supple. No JVD. LUNGS: Has a fair airflow with few rhonchi. HEART: S1 and S2. ABDOMEN: Soft and nontender. No organomegaly. EXTREMITIES: No edema. NEUROLOGICAL: Awake and alert. Follows simple commands. MEDICATIONS: He is on Ambien 10 mg at bedtime p.r.n., DuoNeb q.6 hours, Ecotrin 81 mg daily, insulin coverage, Levemir 10 units subcutaneously at bedtime, metoprolol tartrate 12.5 mg twice a day, Lovaza 1 g p.o. twice a day, Lovenox 40 mg subcutaneously daily, magnesium oxide 400 mg daily, gabapentin 300 mg at bedtime, niacin 500 mg twice a day, 5 mg daily, Protonix 40 mg daily, Prozac 40 mg daily, Remeron 12 mg p.o. at bedtime, Revatio 20 mg 3 times a day, Singulair 10 mg daily, multivitamins daily, and Zestril 2.5 mg daily. LABORATORY DATA: Sodium 134, potassium 4.4, chloride 98, bicarbonate 29, BUN 32, creatinine 1.2, glucose 102, and calcium 8.8. AST is 61, ALT 87, alk phos is 127, and albumin is 3.2. IMPRESSION AND PLAN: Cardiomyopathy with valvular heart disease, severe pulmonary hypertension, history of valve replacement, coronary artery disease, diabetes, and may have sleep apnea syndrome. He is more short of breath than yesterday, so dobutamine was discontinued yesterday. We will discontinue Lasix. We will continue Revatio, hold Revatio if systolic blood pressure is less than 110. Keep head elevated at 45 degrees. Continue bilevel positive airway pressure while sleeping and will benefit from cardiopulmonary rehab. We will also need to start either p.o. or inhaled prostacyclin with endothelin inhibitors. Thank you and we will follow with you. Guru Bustos MD
[2017-05-24] MEDS: Latanoprost 2.5 ml Opht Soln OU SCH (21:10)
[2017-05-24] MEDS: Insulin Detemir 100 units/ml Vial (Levemir) SC SCH (22:26)
[2017-05-25] MEDS: Pantoprazole 40 mg EC Tab PO SCH (05:34)
[2017-05-25 06:02] VITALS: O2SAT 99
[2017-05-25] MEDS: Insulin Lispro (humaLOG) LOW Coverage SC SCH ×3 (07:44→17:23)
[2017-05-25] MEDS: Multivitamin With Minerals Tab PO SCH (08:03)
[2017-05-25] MEDS ORDERED: Fluticasone Nasal 50 mcg/Spray NS SCH (10:00)
[2017-05-25] MEDS: Omega-3-Acid Ethyl Esters 1 GM Cap PO SCH ×2 (10:28→17:26)
[2017-05-25] MEDS: Enoxaparin 40 mg Syringe SC SCH (10:28)
[2017-05-25] MEDS: Magnesium Oxide 400 mg Tab UD PO SCH (10:29)
[2017-05-25] MEDS: Sildenafil 20 MG TAB PO SCH ×3 (10:30→17:28)
--- NOTE | 2017-05-25 16:23 | PN ---
DATE: 05/25/2017 REASON FOR CONSULTATION AND FOLLOWUP: Shortness of breath, congestive heart failure, right heart failure, severe pulmonary hypertension, status post aortic valve replacement, status post mitral valve repair. SUBJECTIVE: The patient denies any chest pain, now lying flat in the bed, but complained of shortness of breath on exertion. OBJECTIVE/PHYSICAL EXAMINATION: As follows: GENERAL: Not in apparent distress. VITAL SIGNS: Temperature is afebrile, heart rate is 68, and blood pressure is 131/56. HEENT: PERRLA. Extraocular muscles are intact. NECK: Supple. No carotid bruits or thyromegaly. CHEST: Clear to auscultation. HEART: S1 and S2 regular. ABDOMEN: Soft. EXTREMITIES: Clubbing or cyanosis negative. LABORATORY DATA: Blood workup as follows; WBC of 4.1, hemoglobin of 10.8, hematocrit of 31.7, and platelet count of 158. Sodium of 134, potassium of 4.1, chloride of 98, carbon dioxide of 29, anion gap of 12, BUN of 32 and creatinine of 1.2. IMPRESSION: An 82-year-old male with past medical history significant for coronary artery disease, aortic stenosis, mitral regurgitation, status post one-vessel coronary artery bypass graft, left radial to right coronary artery status post bioprosthetic aortic valve replacement and pulmonary valve repair, admitted with decompensated congestive heart failure, essentially right heart failure, and history of open heart surgery in 2006, diabetes, hypertension, and hyperlipidemia. The patient admitted with right heart failure probably secondary to severe pulmonary hypertension. Most recent echocardiography shows severe pulmonary hypertension, right ventricular systolic pressure 151. The patient was on Dobutrex yesterday and was discontinued in the preparation for discharge home. If the patient stays and if in the pulmonary point of view the patient can get the benefit for Dobutrex, can be restarted, but with the caution that the patient can go into atrial fibrillation and that will complicate more, become more short of breath and then there is a need of anticoagulation because the patient has severe dilated left and right atrial. Left atrium is moderately dilated and right atrium is also moderately dilated. Right ventricle is also moderately dilated. So, giving Dobutrex would be a little bit more increase risk of atrial fibrillation complicate the issue, but if pulmonary point of view the patient can get the benefit from Dobutrex, can be restarted if the patient stays here in the hospital, it can be restarted. We will discuss with Pulmonary. 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 The patient was at home on Sildenafil. He was started again on Sildenafil 20 mg p.o. three times a day, if blood pressure tolerate can be treated. Most recently his stress test is negative and no reversible ischemia. From cardiac point of view, the patient is stable on the medical treatment, but the shortness of breath on exertion is secondary to pulmonary hypertension gets worse and at rest the pressure is 151 and on exertion becomes more elevated if the patient become short of breath. In the interim, continue medical treatment and no further evasive cardiac workup is planned at this time. Continue DVT prophylaxis, continue low dose beta-jess, continue aspirin, continue lisinopril and continuing Revatio (sildenafil) for pulmonary hypertension. I will continue low dose of Lasix, keeping negative fluid balance p.r.n. If the blood pressure is tolerated, we will give 20 mg twice a day low dose to prevent hypotension and dizziness. The patient is essentially right heart failure, we will give the Lasix for his right heart failure. Guru Sosa MD
[2017-05-25 17:35] VITALS: BP 98/60; PULSE 65
[2017-05-25 19:17] VITALS: RESP 18; TEMP 98
--- NOTE | 2017-05-25 19:32 | PN ---
PULMONARY PROGRESS NOTE DATE: 05/25/2017 REFERRING PHYSICIAN: Arya Booker MD SUBJECTIVE: He is lying in the bed. Still gets short of breath on minimal exertion, but overall feels better. No nausea, vomiting, diarrhea, leg pain, or leg swelling. PHYSICAL EXAMINATION: GENERAL: In no acute distress. VITAL SIGNS: Temperature is 98, heart rate is 62, respiratory rate is 18, blood pressure is 122/46, and pulse ox is 99% on nasal canula. HEENT: Moist mucous membrane. Crowded airway. Mallampati score is 4. NECK: Supple. No JVD. LUNGS: Fair airflow with rhonchi. HEART: S1, S2. ABDOMEN: Soft and nontender. No organomegaly. EXTREMITIES: No edema. NEUROLOGIC: Awake and alert. Follow simple commands. MEDICATIONS: He is on Ambien 10 mg at bedtime p.r.n., DuoNeb q. 6 hours, Ecotrin 81 mg daily, Flonase 1 spray to each nostril daily, insulin coverage, Lasix 20 mg twice a day, restart Levemir 10 units subcutaneous at bedtime, metoprolol tartrate 12.5 mg twice a day, Lovaza 1 g twice a day, Lovenox 40 mg daily, magnesium oxide 400 mg daily, Neurontin 300 mg at bedtime, niacin 500 mg twice a day, nasal saline 2 sprays each nostril q. 4 hours p.r.n., Plavix 75 mg daily, Protonix 40 mg daily, Prozac 40 mg daily, Remeron 15 mg daily, Revatio 20 mg 3 times a day, Singulair 10 mg daily, multivitamins daily, and Zestril 2.5 mg daily. LABORATORY DATA: Reviewed and no new labs available since yesterday. IMPRESSION AND PLAN: Cardiomyopathy with valvular heart disease, severe pulmonary hypertension, history of valve replacement, coronary artery disease, diabetes, and may have sleep apnea syndrome, being followed by Cardiology. Continue pulmonary vasodilator. According to nursing staff, the patient is being transferred to [facility] for continued care. Continue nebulizer treatment. If hypotensive, may discontinue Lasix. Try to maximize pulmonary vasodilator, may need to add endothelin inhibitor and also inhale or p.o. prostacyclin. Overall poor prognosis. Thank you and we will follow with you. Guru Bustos MD [facility] # [id number]
--- NOTE | 2017-05-25 23:55 | PN ---
DATE: 05/24/2017 SUBJECTIVE: The patient is stable hemodynamically. Blood pressure good. The patient complains of stuffy nose otherwise, stable. Getting physical therapy, eating well. No new complaints. PHYSICAL EXAMINATION VITAL SIGNS: On 05/24/2017, his temperature 97.7, heart rate 68, blood pressure 103/49, respirations 20, saturation 92% on 2 liters. HEAD AND NECK: Normal. No JVD. No thyromegaly. CHEST: Clear. Good air entry. CARDIAC: First sound and second sound normal. Asystolic murmur in the aortic area. ABDOMEN: Soft and nontender. EXTREMITIES: No edema. NEUROLOGIC: Normal. LABORATORY DATA: His blood sugar runs between 140 to 200. The patient also had chemistry on 05/24/2017 which showed sodium 134, potassium 4.4, chloride 98, bicarb 29, BUN 32, and creatinine is 1.2. Blood sugar 102. Liver enzymes started going up. AST, ALT and alkaline phosphatase all going up. IMPRESSION AND PLAN: 1. Right-sided heart failure, continue Dobutrex, continue p.o. meds, diuretics. We will monitor blood pressure, continue oxygen and the CPAP machine and will monitor the patient's condition. 2. Abnormal liver function test most likely due to hepatic congestion from right-sided heart failure which seems improving with diuretics and getting worse when holding diuretics. We will continue to observe. 3. Coronary artery disease. History of valvular heart disease status post aortic valve replacement and mitral valve repair, seems stable. No chest pain. The patient had a stress test which is normal. He has good LV function. However, his right-sided heart shows significant pulmonary hypertension, pressure between 80 and 90 at least. Continue current therapy, continue oxygen and we will follow up clinically. 4. Diabetes. 5. History of depression, adult attention deficit syndrome and anxiety. 6. Nasal congestion. We will give him Flonase and [place] nasal spray. We will continue current meds. We will follow up clinically. 7. Weakness, deconditioning. We will continue Physical Therapy. TCU is a good option for him. Arya Booker MD
--- NOTE | 2017-05-26 08:32 | PN ---
DATE: 05/23/2017 REASON FOR CONSULTATION AND FOLLOWUP: Shortness of breath, congestive heart failure, COPD, coronary artery disease, status post AVR, pulmonary hypertension, and mitral valve repair also. SUBJECTIVE: The patient denies any chest pain, shortness of breath, or any palpitations. Feels a lot better. OBJECTIVE: GENERAL: Not in apparent distress. Lying flat in bed. VITAL SIGNS: Blood pressure 114/51, heart rate 62, temperature 97.7. HEENT: PERRLA. Extraocular muscles are intact. NECK: Supple. No carotid bruits or thyromegaly. CHEST: Clear to auscultation. HEART: S1 and S2 regular. ABDOMEN: Soft. EXTREMITIES: Clubbing and cyanosis negative. LABORATORY DATA: Blood work up, WBC 8.3, hemoglobin 10.5, hematocrit 31.7, platelet count 158. Chemistry shows sodium 133, potassium 4.2, anion gap of 11, BUN 31, creatinine 1.2. IMPRESSION: An 82-year-old [place] with past medical history significant for aortic stenosis, status post coronary artery bypass surgery, status post one-vessel bypass, left radial to right coronary artery, status post bioprosthetic aortic valve replacement and status post mitral valve ring replacement, admitted with decompensated congestive heart failure, severe pulmonary hypertension, history of heart disease 2006, history of diabetes, hypertension, hyperlipidemia, severe pulmonary hypertension. Last echo 05/06/2017 shows RV systolic pressure 151 consistent with severe pulmonary hypertension, [id number] aortic regurgitation, bioprosthetic aortic valve. No valvular regurgitation noted, status post mitral valve repair. [id number] tricuspid regurgitation. Right ventricular systolic pressure of 151 consistent with severe pulmonary hypertension. History of negative stress test. Lexiscan dated 05/06/2017, ejection fraction 73%. RECOMMENDATION: Continue aspirin, Plavix. Continue gentle diuretics, okay to discontinue Dobutrex, possible discharge. Thank you Dr. Booker for providing us the opportunity in taking care of the patient, Emory Arboleda. Guru Sosa MD CC: Arya Booker MD [facility]
--- NOTE | 2017-05-26 09:17 | DS ---
SUBJECTIVE: The patient is clinically stable. His stuffiness is getting better, has no new complaint, breathing better, and seems stable. No new complaints. PHYSICAL EXAMINATION: VITAL SIGNS: On 05/25/2017 is as follows; temperature is 98.9, heart rate is 62, blood pressure is 122/46, respirations are 19, and saturating 99% on nasal cannula. HEAD AND NECK: Normal. No JVD. No thyromegaly. CHEST: Clear with good air entry. CARDIAC: First sound and second sound normal. ABDOMEN: Soft and nontender. EXTREMITIES: No edema. NEUROLOGIC: Normal. HOSPITAL COURSE: The patient is admitted with right-sided heart failure, responded very well to IV Lasix, oxygen inhaled with bronchodilators and did very well and maintain IV Dobutrex, seen by Hair Stylist Dr. Bustos. The patient improved; however, blood pressure went down due to over diuresis. Diuretic adjustment done. The patient seems tolerating it well. We will continue current medications. The patient also has some weakness. We will continue Physical Therapy in TCU and we will follow up clinically. While in the hospital, he did have a V/Q scan which shows low probability for pulmonary vascular disease and the patient does have a previous echo and shows pulmonary hypertension probably in the range 80-90 pulmonary pressure. At this moment, we will continue therapy. We will transfer the patient to TCU for monitoring his clinical condition and also Physical Therapy, and we will discuss with Dr. Bustos about Dobutrex again while he is here. DISCHARGE DIAGNOSES: 1. Right-sided heart failure. 2. Pulmonary hypertension. 3. Diastolic dysfunction, left-sided. 4. Chronic obstructive pulmonary disease. 5. Obstructive sleep apnea. 6. Diabetes. 7. Hypotension due to diuretics. 8. Depression and anxiety. 9. Peripheral neuropathy. 10. The patient has diabetic gastropathy. 11. Generalized weakness. 12. Gait disorder. PLAN: Plan is to transfer the patient for Physical Therapy in TCU. Continue current management. The patient is started on Revatio for pulmonary hypertension 20 mg three times a day. We will monitor the patient's clinical status with the Hair Stylist and while he is doing Physical Therapy, continue current treatment. Arya Booker MD
== END 2017-05-25 17:23 | DRG 293 ==
LOC: ED 12:59 → ERH 14:43 → 3RSO 16:21
PROVIDERS: ADMIT Internal Medicine; ATTEND Internal Medicine
DX: I11.0 Hypertensive heart disease with heart failure (principal); I50.33 Acute on chronic diastolic (congestive) heart failure; I27.29 Other secondary pulmonary hypertension; I95.9 Hypotension, unspecified; E11.42 Type 2 diabetes mellitus with diabetic polyneuropathy; E11.69 Type 2 diabetes mellitus with other specified complication; I42.9 Cardiomyopathy, unspecified; I36.8 Other nonrheumatic tricuspid valve disorders; J44.9 Chronic obstructive pulmonary disease, unspecified; G47.33 Obstructive sleep apnea (adult) (pediatric); K31.9 Disease of stomach and duodenum, unspecified; I25.10 Atherosclerotic heart disease of native coronary artery without angina pectoris; F03.90 Unspecified dementia, unspecified severity, without behavioral disturbance, psychotic disturbance, mood disturbance, and anxiety; E78.5 Hyperlipidemia, unspecified; E87.6 Hypokalemia; G47.00 Insomnia, unspecified; F32.9 Major depressive disorder, single episode, unspecified; F41.9 Anxiety disorder, unspecified; T50.2X5A Adverse effect of carbonic-anhydrase inhibitors, benzothiadiazides and other diuretics, initial encounter; K21.9 Gastro-esophageal reflux disease without esophagitis; K76.1 Chronic passive congestion of liver; H40.9 Unspecified glaucoma; R53.1 Weakness; R26.9 Unspecified abnormalities of gait and mobility; K80.20 Calculus of gallbladder without cholecystitis without obstruction; Z95.3 Presence of xenogenic heart valve; Z95.1 Presence of aortocoronary bypass graft

== ENCOUNTER 2017-05-25 17:30 | Inpatient (IN) | payer OTHER ==
[2017-05-25 20:51] VITALS: BMI 23.7
[2017-05-25] MEDS: Insulin Lispro (humaLOG) LOW Coverage SC SCH (21:58)
[2017-05-25] MEDS: Insulin Detemir 100 units/ml Vial (Levemir) SC SCH (22:11)
[2017-05-25] MEDS: Latanoprost 2.5 ml Opht Soln OU SCH (22:11)
[2017-05-26] MEDS: Enoxaparin 40 mg Syringe SC SCH (05:33)
[2017-05-26] MEDS: Pantoprazole 40 mg EC Tab PO SCH (05:33)
[2017-05-26] MEDS: Insulin Lispro (humaLOG) LOW Coverage SC SCH ×4 (06:34→22:38)
[2017-05-26 07:16] LABS: BASO # 0.03 K/mm3 (0.0-2.0); EOS # 0.2 (0.0-0.7); EOS % 7.7 % (1.5-5.0); GRAN # 0.99 (1.4-6.5); HEMATOCRIT 33.2 % (42.0-52.0); LYMPH # 1.2 (1.2-3.4); LYMPH % 41.3 % (22.0-35.0); MEAN CELL VOLUME 94.6 fl (80.0-105.0); MEAN CORPUSCULAR HEMOGLOBIN 31.3 pg (25.0-35.0); MEAN CORPUSCULAR HGB CONC 33.1 g/dl (31.0-37.0); MEAN PLATELET VOLUME 11.8 fl (7.0-11.0); MONO # 0.5 (0.1-0.6); RED CELL DISTRIBUTION WIDTH 13.4 % (11.5-14.5)
[2017-05-26 07:46] LABS: ALB/GLOB RATIO 1.1 (1.1-1.8); ALKALINE PHOSPHATASE 135 U/L (38-126); ALT/SGPT 75 U/L (7-56); AST/SGOT 68 U/L (17-59); BILIRUBIN,TOTAL 0.6 mg/dL (0.2-1.3); BLOOD UREA NITROGEN 37 mg/dL (7-21); CALCIUM 9.2 mg/dL (8.4-10.5); CARBON DIOXIDE 29 mmol/L (21-33); CHLORIDE 97 mmol/L (98-107); GFR AFRICAN-AMERICAN > 60; GLUCOSE,RANDOM 84 mg/dL (70-110); POTASSIUM 4.5 mmol/L (3.6-5.0); SODIUM 133 mmol/L (132-148)
[2017-05-26] MEDS: Multivitamin With Minerals Tab PO SCH (08:22)
[2017-05-26] MEDS: Sildenafil 20 MG TAB PO SCH ×3 (10:32→18:01)
[2017-05-26] MEDS: Magnesium Oxide 400 mg Tab UD PO SCH (10:33)
[2017-05-26] MEDS: Omega-3-Acid Ethyl Esters 1 GM Cap PO SCH ×2 (10:33→18:02)
[2017-05-26] MEDS: Fluticasone Nasal 50 mcg/Spray NS SCH (10:35)
[2017-05-26] MEDS: Latanoprost 2.5 ml Opht Soln OU SCH (21:51)
[2017-05-26] MEDS: Insulin Detemir 100 units/ml Vial (Levemir) SC SCH (22:38)
--- NOTE | 2017-05-27 04:37 | CON ---
PULMONARY CONSULTATION DATE: 05/26/2017 REFERRING PHYSICIAN: Arya Booker MD REASON FOR CONSULTATION: Pulmonary hypertension, chronic lung disease, and may have sleep apnea syndrome. HISTORY OF PRESENT ILLNESS: This is an 82-year-old gentleman known to me from acute side of the hospital, has ischemic heart disease, requiring coronary artery bypass surgery, history of valve replacement, hypertension, diabetes, known to have severe pulmonary hypertension, came back to acute side of the hospital because get short of breath with minimal exertion. In acute side of admission, he was started on dobutamine, responded well, but was stopped within 48 hours, subsequently placed on sildenafil 20 mg q.8 hours. He was also started on BiPAP, which he was tolerating well. So far, we have fair improvement breathing is better, presently admitted to TICU for continued care. He is sitting side of the bed, having dinner, and feeling better. PAST MEDICAL HISTORY: Cardiomyopathy with coronary artery disease, history of coronary artery bypass surgery, also valvular heart disease, status post valve replacement, severe pulmonary hypertension, hypertension, diabetes, and may have sleep apnea syndrome. ALLERGIES: NONE KNOWN. SOCIAL HISTORY: Nonsmoker and nondrinker. FAMILY HISTORY: No significant cardiopulmonary disease reported. MEDICATIONS: He is on Ambien 10 mg at bedtime p.r.n., DuoNeb q.6 hours p.r.n., Ecotrin 81 mg daily, Flonase one spray each nostril daily, insulin coverage, Lasix 20 mg twice a day, Levemir 10 units subcutaneously at bedtime, metoprolol tartrate 25 mg twice a day, Lovaza 1 capsule twice a day, Lovenox 40 mg daily, magnesium oxide 400 mg daily, Neurontin 300 mg at bedtime, niacin 500 mg twice a day, nasal saline two sprays each nostril q.4 hours, Plavix 75 mg daily, Protonix 40 mg daily, Prozac 40 mg daily, mirtazapine 15 mg at bedtime, sildenafil 20 mg three times a day, Singulair 10 mg daily, multivitamins daily, and Zestril 2.5 mg daily. REVIEW OF SYSTEMS: No headache. No rhinitis. Has shortness of breath, not much cough. No chest pain. No nausea. No vomiting. No diarrhea. No leg pain or leg swelling. PHYSICAL EXAMINATION: GENERAL: Sitting side of the bed, in no acute distress. VITAL SIGNS: Temperature is 98, heart rate is 74, respiratory rate is 18, blood pressure is 127/57, and pulse ox is 97% on nasal cannula. HEENT: Moist mucous membranes. Crowded airway. Mallampati score is IV. NECK: Supple. No JVD. LUNGS: Have a few crackles. HEART: S1 and S2. ABDOMEN: Soft and nontender. No organomegaly. EXTREMITIES: There is no edema. NEUROLOGIC: Awake, alert, and follow simple commands. LABORATORY DATA: Shows hemoglobin 11.0, hematocrit 33.2, WBC 3.0, and platelet count is 152,000. Sodium 133, potassium 4.5, chloride 97, bicarbonate 29, BUN 37, creatinine 1.2, glucose 153, calcium is 9.2, AST 68, ALT 75, alkaline phosphatase is 135, and albumin is 3.1. IMPRESSION AND PLAN: Cardiomyopathy with valvular heart disease, severe pulmonary hypertension, history of valve replacement, coronary artery disease, diabetes, and may have sleep apnea syndrome. Continue pulmonary vasodilators. Encourage BiPAP use. Keep head at 45 degrees. Start therapy. Upon discharge, we will need endothelin inhibitor and also will benefit from prostacyclin. Thank you and we will follow with you. Guru Bustos MD
--- NOTE | 2017-05-27 05:15 | CON ---
DATE: 05/26/2017 LOCATION: The patient is in room 313, bed 2. REASON FOR CONSULTATION: Congestive heart failure, history of chronic obstructive pulmonary disease, history of coronary artery bypass surgery, aortic valve replacement, mitral valve repair, hypertension, diabetes, hyperlipidemia, deconditioning. HISTORY OF PRESENT ILLNESS: An 82-year-old male, who had one-vessel coronary artery bypass surgery, left radial to RCA, status post aortic valve replacement with bioprosthetic aortic valve and mitral valve repair with a ring replacement, hypertension, diabetes, hyperlipidemia, peripheral neuropathy, adult deficit attention deficiency syndrome was admitted to medical floor with shortness of breath and found to have CHF, probably on the basis of valvular disease and pulmonary hypertension. He was treated medically, and he improved. Now, he was admitted to Transitional Care Unit for deconditioning and physical therapy. The patient says that his shortness of breath is much better. Denies any chest pain or palpitation. PAST MEDICAL HISTORY: Positive for coronary artery bypass surgery, one-vessel left radial to RCA, AVR, mitral valve repair with a ring in 2006, history of diabetes, hypertension, hyperlipidemia, back surgery, laminectomy, peripheral neuropathy, adult deficit attention deficiency syndrome, history of recent CHF. PERSONAL HISTORY: Denies smoking. Denies drinking. ALLERGIES: THE PATIENT DENIES ANY ALLERGIES. HOME MEDICATIONS: The patient was on Revatio 20 mg p.o. daily, Neurontin 300 mg p.o. daily, Advair Diskus one puff b.i.d., Nexium 40 daily, Wellbutrin SR 75 t.i.d., Strattera 60 mg p.o. daily, magnesium oxide 400 mg p.o. b.i.d., niacin 500 mg b.i.d., Lipitor 40 daily, and metformin 850 b.i.d. REVIEW OF SYSTEMS: All other systems were reviewed. Positives mentioned in the history, others were negative. PHYSICAL EXAMINATION: VITAL SIGNS: Blood pressure 105/41, respirations 18, pulse 64, temperature 97.6. HEENT: Head is normocephalic. Eyes: Pupils normal. Conjunctivae, slightly pale. NECK: JVP low. Carotid equal. THORAX: AP diameter normal. The patient has scar from previous cardiac surgery. LUNGS: Clear. CARDIOVASCULAR: S1 and S2. Prosthetic aortic valve sounds, systolic murmur. No rub. ABDOMEN: Soft. No tenderness. No organomegaly. EXTREMITIES: No clubbing. No cyanosis. LABORATORY DATA: Shows WBC 3.0, hemoglobin 11.0, hematocrit 33.2, platelets 152. Sodium 133, potassium 4.5, BUN 37, creatinine 1.2, random glucose 84, calcium 9.2, AST 68, ALT 75, alkaline phosphatase 135. The patient's chest x-ray on the medical floor at the time of admission shows congestive heart failure. EKG showed sinus rhythm with first-degree AV block, right superior axis deviation, possible inferoposterior infarct, age undetermined. Abdominal ultrasound showed bilateral pleural effusions, left greater than right and gallstones. The patient had a stress test on 05/06/2017, normal SPECT myocardial perfusion study with normal left ventricular ejection fraction of 73%. Echo was done on 05/06/2017, which showed right ventricular systolic pressure of 151 mmHg, which is consistent with severe pulmonary hypertension. Left ventricle size normal, mild concentric left ventricular hypertrophy, [id number] aortic regurg, bioprosthetic aortic valve prosthesis in place. No mitral valve regurgitation noted, status post mitral valve repair with ring insertion, [id number] tricuspid regurgitation, RVSP of 151 mmHg consistent with severe pulmonary hypertension, mild pulmonic valve regurgitation seen. IVC is dilated. Flattening of septum consistent with right ventricular volume and pressure overload. DIAGNOSES: Congestive heart failure on the basis of valvular heart disease and severe pulmonary hypertension, the patient improved, now is in Transitional Care Unit for deconditioning; coronary artery disease, status post one-vessel bypass surgery, status post bioprosthetic aortic valve replacement, status post mitral valve repair with a ring insertion; hypertension; hyperlipidemia; diabetes mellitus; peripheral neuropathy; history of adult deficit attention deficiency syndrome; congestive heart failure on the basis of severe pulmonary hypertension and valvular heart disease; deconditioning. PLAN: The patient is on DuoNeb and nebulizer therapy, aspirin 81 mg daily, furosemide 20 mg b.i.d., insulin as ordered, metoprolol 12.5 mg b.i.d., Lovenox 40 mg subcutaneous daily, magnesium oxide 400 mg p.o. daily, Neurontin 300 mg p.o. at bedtime, niacin 500 mg b.i.d., Plavix 75 mg daily, Protonix 40 daily, Prozac 40 daily, Remeron 15 mg p.o. at bedtime, Revatio 20 mg p.o. t.i.d., Singulair 10 mg at bedtime, lisinopril 2.5 mg daily. We will continue physical therapy. We will continue present therapy. We will follow with you. Guru Khan MD
[2017-05-27] MEDS: Pantoprazole 40 mg EC Tab PO SCH (05:20)
[2017-05-27] MEDS: Enoxaparin 40 mg Syringe SC SCH (05:20)
[2017-05-27] MEDS: Insulin Lispro (humaLOG) LOW Coverage SC SCH ×4 (06:54→22:57)
[2017-05-27] MEDS: Multivitamin With Minerals Tab PO SCH (08:08)
[2017-05-27] MEDS: Omega-3-Acid Ethyl Esters 1 GM Cap PO SCH ×2 (10:40→17:11)
[2017-05-27] MEDS: Fluticasone Nasal 50 mcg/Spray NS SCH (10:40)
[2017-05-27] MEDS: Magnesium Oxide 400 mg Tab UD PO SCH (10:41)
[2017-05-27] MEDS: Sildenafil 20 MG TAB PO SCH ×3 (10:43→17:14)
--- NOTE | 2017-05-27 15:06 | PN ---
DATE: 05/27/2017 REASON FOR CONSULTATION: Followup continuity of care in Transitional Care Unit, history of severe aortic stenosis, status post open heart surgery, status post AVR, MVR, one-vessel CABG, deconditioning of the body, severe pulmonary hypertension. SUBJECTIVE: The patient denies any chest pain, shortness of breath or any palpitation. Lying flat. Not in apparent distress, but claims that on walking, feels short of breath. OBJECTIVE: GENERAL: Not in apparent distress. Lying flat on the bed. VITAL SIGNS: As follows, temperature afebrile, heart rate is 70, blood pressure 118/52. HEENT: PERRLA. Extraocular muscles intact. NECK: Supple. No carotid bruit or thyromegaly. CHEST: Clear to auscultation. HEART: S1 and S2 regular. ABDOMEN: Soft. EXTREMITIES: Clubbing and cyanosis negative. LABORATORY DATA: WBC 3, hemoglobin 11, hematocrit 33.2, platelet count 152. Chemistry shows sodium 133, potassium 4.5, chloride 97, carbon dioxide 29, anion gap of 13, BUN 37, creatinine 1.2. 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 RECOMMENDATIONS: Continue with treatment for pulmonary hypertension. Continue DVT prophylaxis. Continue Revatio, sildenafil for pulmonary hypertension. Continue gentle diuretics. Continue baby aspirin. We will follow with you. Thank you Dr. Booker for providing us the opportunity in taking care of the patient, Emory Arboleda. Guru Sosa MD
[2017-05-27] MEDS: Albuterol-Ipratrop 3 mg / 0.5 (3 ml) UD IH PRN (19:44)
--- NOTE | 2017-05-27 20:09 | HP ---
DATE: 05/26/2017 The patient is in Transitional Care Unit. The patient is comfortable. HISTORY OF PRESENT ILLNESS: This is a patient that came with pulmonary hypertension, right-sided heart failure, obstructive sleep apnea, and pulmonary hypertension. He came into the medical floor, was treated with IV dobutamine, seen by manager strategy & account, sales counselor, and has general weakness and was treated with physical therapy and now the patient come into the floor for continuation of therapy. Monitor his status while he is getting the medications. Monitor his vitals and same time getting physical therapy. The patent at this time has no fever. No chills. He seems comfortable with the current medications, general weakness, and just has a stuffy nose from probably the oxygen and the masks and we will follow up on that. The patient otherwise seems comfortable. No distress. Did not complain of any symptoms other than the dyspnea, which improved. The patient had history of pulmonary hypertension, his pulmonary hypertension is probably 80 to 90. He also had a history of COPD and obstructive sleep apnea on current medications Lasix, sildenafil or Revatio 20 mg three times a day, dobutamine, which has been stopped recently, inhaled, bronchodilators, and seems doing okay with his current medications and currently in TCU for physical therapy. PAST MEDICAL HISTORY: As I mentioned, he did have a history of coronary artery disease, bypass surgery, aortic valve replacement, mitral valve repair, and history of endocarditis in [place], which was treated for more than 3 months and improved. The patient also had severe pulmonary hypertension, diabetes type 2, peripheral neuropathy, and have disk surgery with severe sciatic symptoms, which was treated and feels better. The patient also have COPD, chronic insomnia, depression, and anxiety. ALLERGIES: NONE. FAMILY HISTORY: No significant cardiopulmonary disease. SOCIAL HISTORY: Nonsmoker and nondrinker. He smokes many many years, but currently more than 20 years he does not smoke. MEDICATIONS: He take Ambien at bedtime, he take bronchodilator inhalers, DuoNeb, aspirin, Flonase, [place] nasal spray, insulin coverage, Lasix 20 b.i.d., Levemir 10 units and also metoprolol 25 b.i.d., Lovaza, Lovenox 40 subcutaneously, magnesium oxide 400 once a day, and Neurontin. REVIEW OF SYSTEMS: As in the present illness. PHYSICAL EXAMINATION: VITAL SIGNS: He has 97.6 temperature, heart rate 64, blood pressure 105/41, respirations 18, and saturation 95%. HEAD AND NECK: Normal. No JVD. No thyromegaly. CHEST: Clear. CARDIAC: First sound and second sound normal. There is systolic ejection murmur in the aortic area. ABDOMEN: Soft and nontender. EXTREMITIES: There is mild edema on the left and right leg, no edema. NEUROLOGIC: Normal except general weakness. LABORATORY DATA: White count 3, hemoglobin 11, hematocrit 33.2, and platelet 152. Sodium 133, potassium 4.5, chloride 97, bicarbonate 29, BUN 37, and creatinine 1.2. Liver enzymes; AST 68, ALT 75, and alkaline phosphatase 135. IMPRESSION AND PLAN: 1. Generalized weakness. The patient will need physical therapy on a daily basis and we will continue doing that. 2. Chronic obstructive pulmonary disease. 3. Obstructive sleep apnea. 4. Pulmonary hypertension. We will continue current medication also. 5. The patient has right-sided heart failure. We will continue current medications, Revatio, diuretics, Lasix b.i.d., and continuous positive airway pressure machine at night. Oxygen and inhaled bronchodilators and we will continue current therapy. We will follow up with the manager strategy & account. 6. Congestive heart failure. The patient does have more of a right-sided heart failure than left. He does have good left ventricular systolic function on the left ventricle. His aortic valve has , no current stenosis, and his mitral valve seems normal with no pathology. The patient also had stress test, which is normal, so we will continue to observe cardiac status. Continue Lasix for right sided and continue Revatio for pulmonary hypertension. Probably his pulmonary hypertension is due to chronic obstructive pulmonary disease, sleep apnea, may be left-sided diastolic dysfunction and diastolic heart failure. We will observe. Continue current therapy and oxygen. Inhaled bronchodilators. We will follow up with Cardiology. 7. The patient has diabetes, has high cholesterol, peripheral neuropathy, anxiety, and depression. We will continue other medications for his current medical condition including insulin. 8. There is a normal liver function test probably secondary to his right-sided heart failure and pulmonary hypertension. I will continue to monitor. We will followup clinically. Arya Booker MD
[2017-05-27] MEDS: Insulin Detemir 100 units/ml Vial (Levemir) SC SCH (22:58)
[2017-05-27] MEDS: Latanoprost 2.5 ml Opht Soln OU SCH (23:00)
--- NOTE | 2017-05-28 01:13 | PN ---
PULMONARY PROGRESS NOTE DATE: 05/27/2017 REFERRING PHYSICIAN: Dr. Booker. SUBJECTIVE: He is lying in the bed. Feels better. Able to ambulate with the help of therapist and felt better. Tolerated BiPAP well. No nausea. No vomiting. No diarrhea. No leg pain or leg swelling. OBJECTIVE: GENERAL: In no acute distress. VITAL SIGNS: Temperature is 98, heart rate is 70, respiratory rate is 16, blood pressure is 107/53, and pulse oximetry is 98% on nasal canula. HEENT: Moist mucous membrane. Crowded airway. NECK: Supple. No JVD. LUNGS: Have a fair airflow with rhonchi. HEART: S1, S2. ABDOMEN: Soft, nontender. No organomegaly. EXTREMITIES: No edema. NEUROLOGIC: Awake and alert. Follows simple commands. MEDICATIONS: He is on Ambien 10 mg at bedtime p.r.n.; DuoNeb q. 6 hours p.r.n.; Ecotrin 81 mg daily; Flonase 1 spray to each nostril daily; insulin coverage; Lasix 20 mg twice a day; Levemir 10 units at bedtime; metoprolol tartrate 12.5 mg twice a day; Lovaza 1 g twice a day; Lovenox 40 mg daily; magnesium oxide 400 mg daily; Neurontin 300 mg at bedtime; niacin 500 mg twice a day; nasal saline q. 4 hours; Plavix 75 mg daily; Protonix 40 mg daily; Prozac 40 mg daily; mirtazapine 15 mg at bedtime; Revatio 20 mg 3 times a day; Singulair 10 mg daily; multivitamins daily; and Zestril 2.5 mg daily. LABORATORY DATA: Reviewed. Blood sugar today 189. IMPRESSION AND PLAN: Cardiomyopathy with valvular heart disease, severe pulmonary hypertension, history of valve replacement, coronary artery disease, diabetes, may have sleep apnea syndrome. Pulmonary point of view, he is improved. Continue pulmonary vasodilators, small dose of diuretics. Watch kidney function. Encourage use, bronchodilator. Thank you and we will follow with you. Guru Bustos MD [facility] # [id number]
[2017-05-28] MEDS: Pantoprazole 40 mg EC Tab PO SCH (06:08)
[2017-05-28] MEDS: Enoxaparin 40 mg Syringe SC SCH (06:08)
[2017-05-28] MEDS: Insulin Lispro (humaLOG) LOW Coverage SC SCH ×4 (06:40→21:40)
[2017-05-28 07:17] LABS: BLOOD UREA NITROGEN 34 mg/dL (7-21); CARBON DIOXIDE 32 mmol/L (21-33); CHLORIDE 95 mmol/L (98-107); GFR AFRICAN-AMERICAN > 60; GLUCOSE,RANDOM 207 mg/dL (70-110); POTASSIUM 4.4 mmol/L (3.6-5.0); SODIUM 134 mmol/L (132-148)
[2017-05-28] MEDS: Magnesium Oxide 400 mg Tab UD PO SCH (09:49)
[2017-05-28] MEDS: Multivitamin With Minerals Tab PO SCH (09:49)
[2017-05-28] MEDS: Sildenafil 20 MG TAB PO SCH ×3 (09:49→17:48)
[2017-05-28] MEDS: Omega-3-Acid Ethyl Esters 1 GM Cap PO SCH ×2 (09:49→17:47)
[2017-05-28] MEDS: Fluticasone Nasal 50 mcg/Spray NS SCH (09:53)
--- NOTE | 2017-05-28 11:14 | PN ---
DATE: SUBJECTIVE: An 82-year-old male patient in TCU, seems comfortable to walk around. He does still gets short of breath with more distance than before when he was at home and in the office but he still gets dyspneic. The patient is currently getting oxygen. He is getting nebulizers. He is getting CPAP machine, steroids and Revatio 20 mg three times a day for pulmonary hypertension and also Lasix. We will see how the patient do. We recommend the nebulizer to be standard and continues everyday and we will evaluate that. It was discussed with Dr. Bustos. PHYSICAL EXAMINATION: VITAL SIGNS: Temperature 98, heart rate 70, blood pressure 118/52, respirations 16, saturation 98%. HEAD AND NECK: Normal. No JVD. No thyromegaly. CHEST: Clear in both lungs. CARDIAC: First sound and second sound normal. There is systolic murmur across the aortic area. ABDOMEN: Soft, obese, nontender. EXTREMITIES: Reveals edema, left more than right, it is mild edema. NEUROLOGIC: Within normal range except has generalized weakness, also more weakness on the left leg because of peripheral neuropathy, which improved. LABORATORY STUDIES: The patient had some labs, his white count 3, hemoglobin 11, hematocrit 33.2, platelets 152. Sodium 134, potassium 4.4, chloride 95, bicarb 32, BUN 34, creatinine is 1.2. His blood sugar today was 207. IMPRESSION AND PLAN: 1. Acute heart failure, right-sided on top of chronic. The patient getting Lasix, oxygen, nebulizer treatment, Revatio and BiPAP machine, and he has finished infusion of Dobutrex for . 2. The patient has coronary artery disease. His stress test was normal. Has a valve replacement aortic and mitral valve repair and echo seems stable. No evidence of any pathological disorder on them and good left ventricular functions, probably the patient has diastolic left heart failure too. 3. Anemia. 4. Diabetes type 2. Continue insulin coverage. Continue current medications. The patient is on steroids, which could explain some of his weakness,and we will taper it down quickly. I do see that the patient already, Dr. Bustos took him off the steroids. So, we will follow up that recommendation and we will continue current therapy. 5. Electrolyte abnormalities, low magnesium. Continue magnesium p.o. b.i.d. Hypertension, high cholesterol, chronic depression, and anxiety. Plan is to resume all his medications. CURRENT MEDICATIONS: He takes Ambien 10 mg daily, DuoNeb four times a day, aspirin 81, Flonase, Humalog, insulin coverage, Humulin insulin, lispro 20 units b.i.d.. We may need to increase it to 2 more units, but we will hold off on his sugar, his sugar is not bad, most of the reading is good, also he is getting Lopressor 12.5 b.i.d., Lovaza, Lovenox, magnesium oxide, Neurontin, niacin, [place] spray, Plavix, Protonix, Prozac 40 mg daily, Remeron 15 mg at bedtime, Revatio 20 mg t.i.d., Singulair, , multivitamins, Xalatan ophthalmic solution. The patient getting also Zestril 2.5 mg b.i.d. PLAN: Continue current therapy. Followup clinically. Thank you for all consults. Arya Booker MD
[2017-05-28] MEDS: Albuterol-Ipratrop 3 mg / 0.5 (3 ml) UD IH PRN (11:15)
[2017-05-28] MEDS: Albuterol-Ipratrop 3 mg / 0.5 (3 ml) UD IH SCH ×3 (11:22→19:38)
--- NOTE | 2017-05-28 13:39 | PN ---
DATE: 05/28/2017 LOCATION: Room number 320, bed 1. REASON FOR CONSULTATION AND FOLLOWUP: History of severe aortic stenosis status post open heart surgery, status post AVR and mitral valve repair with ring insertion, one-vessel CABG, deconditioning, and severe pulmonary hypertension. SUBJECTIVE: The patient is lying in bed without chest pain, shortness of breath or palpitation, but he says when he walks he gets shortness of breath. Denies any chest pain on exertion. PHYSICAL EXAMINATION: VITAL SIGNS: Blood pressure of 117/53, respirations of 18, pulse of 73, and temperature of 97.6. HEENT: Head is normocephalic. Eyes: Pupils are normal. Conjunctiva slightly pale. NECK: JVP is low. Carotids are equal. Thorax: AP diameter normal. LUNGS: Clear. CARDIOVASCULAR: S1 and S2. ABDOMEN: Soft and nontender. No organomegaly. EXTREMITIES: No clubbing or cyanosis. LABORATORY DATA: Shows WBC of 3.0, hemoglobin of 11.0, hematocrit of 33.2, and platelet of 152. Sodium of 134, potassium of 4.4, BUN of 34, and creatinine of 1.2. Glucose of 217 and calcium of 9.0. DIAGNOSES: Severe aortic stenosis, mitral regurgitation status post aortic prosthetic valve replacement, mitral valve repair with reconstruction, one-vessel coronary artery bypass graft surgery of right coronary artery, severe pulmonary hypertension, diabetes, hypertension, hyperlipidemia, and deconditioning. PLAN: Continue aspirin 81 mg daily, furosemide 20 mg b.i.d., insulin as ordered, metoprolol tartarate 12.5 mg b.i.d., Lovenox 40 mg subcutaneously daily, magnesium oxide 400 mg p.o. daily, Neurontin 300 mg p.o. at bedtime, niacin 500 mg b.i.d., Plavix 75 mg daily, Protonix 40 daily, Prozac 40 mg p.o. daily, Remeron 15 mg p.o. at bedtime, Revatio 20 mg p.o. t.i.d., Singulair 10 mg at bedtime, and lisinopril 2.5 mg p.o. daily. We will continue present therapy. We will follow. Guru Khan MD [facility] # [id number]
--- NOTE | 2017-05-28 19:15 | PN ---
DATE: 05/28/2017 PULMONARY PROGRESS NOTE REFERRING PHYSICIAN: Dr. Booker. SUBJECTIVE: He is lying in the bed. Did not feel well. He has short of breath, apparently BiPAP was not placed on him last night. No nausea. No vomiting. No diarrhea. No leg pain or leg swelling. OBJECTIVE: GENERAL: In no acute distress. VITAL SIGNS: Temperature is 98, heart rate is 70, respiratory rate is 20, blood pressure is 107/53, and pulse oximetry is 98% on nasal canula. HEENT: Moist mucous membrane. Crowded airway. Mallampati score is IV. NECK: Supple. No JVD. LUNGS: Fair airflow with few rhonchi. HEART: S1, S2. ABDOMEN: Soft and nontender. No organomegaly. EXTREMITIES: No edema. NEUROLOGIC: Awake and alert. Follow simple commands. MEDICATIONS: He is on Ambien 10 mg at bedtime p.r.n., DuoNeb q. 6 hours p.r.n., Ecotrin 81 mg daily, Flonase 1 spray to each nostril daily, insulin coverage, Lasix 20 mg twice a day, metoprolol tartrate 12.5 mg twice a day, Lovaza 1 g twice a day, Lovenox 40 mg subcutaneously daily, magnesium oxide 400 mg daily, gabapentin 300 mg at bedtime, niacin 500 mg twice a day, nasal saline 2 sprays each nostril q. 4 hours p.r.n., Plavix 75 mg daily, Protonix 40 mg daily, Prozac 40 mg daily, Remeron 15 mg at bedtime, Revatio 20 mg 3 times a day, Singulair 10 mg at bedtime, multivitamins daily, and Zestril 2.5 mg daily. LABORATORY DATA: Shows sodium 134, potassium 4.4, chloride 95, bicarbonate is 32, BUN of 34, creatinine 1.2, glucose 207, calcium is 9.0. IMPRESSION AND PLAN: Cardiomyopathy with valvular heart disease, severe pulmonary hypertension, history of valve replacement, coronary artery disease, history of diabetes, may have a sleep apnea syndrome. Case discussed with the nursing staff and requested to assure the patient is on BiPAP while sleeping. Continue Revatio which is a pulmonary vasodilator, small dose of diuretics. Watch kidney function closely. Out of bed to chair. Physical therapy. I believe as the outpatient, he will benefit from endothelin inhibitors and also prostacyclin. Thank you and we will follow with you. Guru Bustos MD
[2017-05-28] MEDS: Insulin Detemir 100 units/ml Vial (Levemir) SC SCH (21:40)
[2017-05-28] MEDS: Latanoprost 2.5 ml Opht Soln OU SCH (21:42)
[2017-05-29] MEDS: Albuterol-Ipratrop 3 mg / 0.5 (3 ml) UD IH SCH ×7 (00:05→23:43)
[2017-05-29] MEDS: Enoxaparin 40 mg Syringe SC SCH (05:39)
[2017-05-29] MEDS: Pantoprazole 40 mg EC Tab PO SCH (05:39)
[2017-05-29] MEDS: Insulin Lispro (humaLOG) LOW Coverage SC SCH ×4 (06:45→21:15)
[2017-05-29] MEDS: Multivitamin With Minerals Tab PO SCH (08:48)
[2017-05-29] MEDS: Fluticasone Nasal 50 mcg/Spray NS SCH ×2 (09:22→21:22)
[2017-05-29] MEDS: Omega-3-Acid Ethyl Esters 1 GM Cap PO SCH ×2 (09:23→17:50)
[2017-05-29] MEDS: Magnesium Oxide 400 mg Tab UD PO SCH (09:23)
[2017-05-29] MEDS: Sildenafil 20 MG TAB PO SCH ×3 (09:24→17:53)
--- NOTE | 2017-05-29 15:00 | PN ---
DATE: 05/29/2017 SUBJECTIVE: The patient seems doing well. He is still complaining of short of breath less than before. Nebulizer treatment being given. I spoke with nurses. He feel better with that. Apparently, the patient has been refusing CPAP, but I spoke with him about using it everyday. He has no chest pain. No other new complaint. He is getting physical therapy on daily basis, next to him, discussed with her about his conditions. PHYSICAL EXAMINATION: On 05/29/2017 is as follows: VITAL SIGNS: Temperature is 97.7, heart rate is 77, blood pressure is 118/54, respirations are 16 and saturating 89% on 3 L nasal cannula. HEENT: Head and Neck: Normal. No JVD. No thyromegaly. CHEST: Clear. CARDIAC: First sound, second sound normal. There is a systolic ejection murmur on the aortic area. ABDOMEN: Soft and nontender. EXTREMITIES: Mild edema, left more than right. NEUROLOGIC: Normal. LABORATORY STUDIES: As previously said, white count is 3, hemoglobin is 11, hematocrit is 33.2, and platelets are 152. Blood sugar runs in the 200 to 150. IMPRESSION AND PLAN: 1. Chronic hypoxemia secondary to pulmonary hypertension and chronic obstructive pulmonary disease. We will continue on oxygen 2 L nasal cannula, may need 3 L. 2. Dyspnea, multifactorial, due to pulmonary hypertension, right-sided heart failure, congestive heart failure diastolic, chronic obstructive pulmonary disease, and obstructive sleep apnea. 3. Diabetes: Continue insulin coverage. 4. Coronary artery disease, aortic valve replacement, status post mitral valve repair, stable. 5. Chronic insomnia, depression: We will continue current medications. The patient is getting Ambien, DuoNeb, Ecotrin, CPAP 7, Flonase, Humalog, insulin coverage, Lasix 20 b.i.d., Levemir 10 units daily, Lopressor 12.5 mg b.i.d., Lovaza, Lovenox subcu, magnesium 400 b.i.d., Neurontin 300 at bedtime, niacin, [place] nasal spray, Plavix, Protonix, Prozac 40 mg daily, Remeron 15 mg at bedtime, Revatio, Singulair, , Xalatan, hydroxyzine, and Zestril 2.5 mg daily. We may decrease Remeron or discontinue it because of the patient's extra sleeping; however, he has been asking for sleeping pills. We will follow up as an outpatient. Continue current therapy for now. Follow up with consultants and continue nebulizer treatment, CPAP 7 and discussed with the patient about compliance and importance of helping his underlying pulmonary hypertension. Continue Revatio. Arya Booker MD
[2017-05-29] MEDS: Insulin Detemir 100 units/ml Vial (Levemir) SC SCH (21:16)
[2017-05-29] MEDS: Latanoprost 2.5 ml Opht Soln OU SCH (21:17)
--- NOTE | 2017-05-29 23:08 | PN ---
PULMONARY PROGRESS NOTE DATE: 05/29/2017 REFERRING PHYSICIAN: Arya Booker MD SUBJECTIVE: He is out of bed to wheelchair, participating in therapy. Breathing is little better, of course still short of breath with exertion. No chest pain. No nausea. No vomiting. No diarrhea. No leg pain or leg swelling. OBJECTIVE: GENERAL: In no acute distress. VITAL SIGNS: Temperature is 98, heart rate is 61, respiratory rate is 18, blood pressure is 133/69, and pulse ox is 96% on 3 L nasal cannula. HEENT: Moist mucous membranes. Crowded airway. NECK: Supple. No JVD. LUNGS: Fair airflow with few rhonchi. HEART: S1 and S2. ABDOMEN: Soft and nontender. No organomegaly. EXTREMITIES: No edema. NEUROLOGIC: Awake, alert, and follow simple commands. MEDICATIONS: She is on Ambien 10 mg at bedtime p.r.n., DuoNeb q. 6 hours p.r.n., DuoNeb q. 4 hours round the clock, Ecotrin 81 mg daily, Flonase 1 spray to each nostril daily, insulin coverage, Lasix 20 mg twice a day, Levemir 10 units subcutaneous at bedtime, metoprolol tartrate 12.5 mg twice a day, Lovaza 1 g twice a day, Lovenox 40 mg daily, magnesium oxide 400 mg daily, Neurontin 300 mg at bedtime, niacin 500 mg twice a day, nasal saline 2 sprays each nostril q. 6 hours, Protonix 40 mg daily, Prozac 40 mg daily, Remeron mg at bedtime, Singulair 10 mg daily,multivitamins daily, and Zestril 2.5 mg daily. LABORATORY DATA: Blood sugar this morning shows 185. IMPRESSION AND PLAN: Cardiomyopathy with valvular heart disease, severe pulmonary hypertension, history of valve replacement, coronary artery disease, diabetes, may have sleep apnea syndrome. 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 Encourage BiPAP use. Continue therapy. Thank you and we will follow with you. Guru Bustos MD
--- NOTE | 2017-05-29 23:51 | PN ---
DATE: 05/29/2017 LOCATION: The patient is in room number 320, bed 1. REASON FOR CONSULTATION AND FOLLOWUP: History of severe aortic stenosis, status post open heart surgery, status post AVR, mitral valve repair with ring insertion, one-vessel CABG, deconditioning, and severe pulmonary hypertension. SUBJECTIVE: The patient is lying comfortably in bed without any chest pain, shortness of breath or palpitation. Yesterday, he was complaining some shortness of breath on exertion. Today, he says his shortness of breath on exertion also is improving. PHYSICAL EXAMINATION VITAL SIGNS: Blood pressure of 133/69, respirations of 18, pulse of 61, and temperature of 97.9. HEENT: Head is normocephalic. Eyes; pupils are normal. Conjunctivae slightly pale. NECK: JVP is low. Carotids are equal. THORAX: AP diameter normal. LUNGS: Clear. CARDIOVASCULAR: S1 and S2. ABDOMEN: Soft and nontender. No organomegaly. Bowel sounds normal. EXTREMITIES: No clubbing. No cyanosis. LABORATORY DATA: Was done on 05/26/2017, they were reported in our previous notes. Electrolytes on 05/28/2017, sodium of 134, potassium of 4.4, BUN of 34, creatinine of 1.2, and random sugar today is 185. CBC done on 05/26/2017, WBC of 3.0, hemoglobin of 11.0, hematocrit of 33.2, and platelets of 152. DIAGNOSES: Severe aortic stenosis, mitral regurgitation status post aortic valve and prosthetic valve replacement, mitral valve repair with a ring, one-vessel coronary artery bypass graft surgery of right coronary artery, severe pulmonary hypertension, diabetes, hypertension, hyperlipidemia, and deconditioning. PLAN: The patient is getting physical therapy, which we will continue. We will continue present therapy with DuoNeb hand nebulizer therapy, aspirin 81 mg daily, furosemide 20 mg b.i.d., insulin as ordered, metoprolol 12.5 mg b.i.d., Lovenox 40 mg subcutaneously daily, magnesium oxide 400 mg daily, Neurontin 300 mg at bedtime, niacin 500 mg b.i.d., Plavix 75 mg daily, Protonix 40 mg daily, Prozac 40 mg daily, Remeron 15 mg p.o. at bedtime, Revatio 20 mg p.o. t.i.d., Singulair 10 mg at bedtime, and lisinopril 2.5 mg daily. We will continue physical therapy. We will follow with you. Guru Khan MD
[2017-05-30] MEDS: Albuterol-Ipratrop 3 mg / 0.5 (3 ml) UD IH SCH ×5 (03:06→20:39)
[2017-05-30] MEDS: Pantoprazole 40 mg EC Tab PO SCH (06:39)
[2017-05-30] MEDS: Enoxaparin 40 mg Syringe SC SCH (06:39)
[2017-05-30] MEDS: Insulin Lispro (humaLOG) LOW Coverage SC SCH ×4 (06:40→22:54)
[2017-05-30] MEDS: Multivitamin With Minerals Tab PO SCH (08:22)
[2017-05-30] MEDS: Fluticasone Nasal 50 mcg/Spray NS SCH (10:22)
[2017-05-30] MEDS: Omega-3-Acid Ethyl Esters 1 GM Cap PO SCH ×2 (10:23→18:35)
[2017-05-30] MEDS: Magnesium Oxide 400 mg Tab UD PO SCH (10:24)
[2017-05-30] MEDS: Sildenafil 20 MG TAB PO SCH ×3 (10:26→18:38)
--- NOTE | 2017-05-30 18:45 | PN ---
DATE: 05/30/2017 LOCATION: The patient in room 320, bed 1. REASON FOR CONSULTATION AND FOLLOWUP: History of severe aortic stenosis, status post open heart surgery, with status post AVR and mitral valve repair with ring insertion, one-vessel CABG, severe pulmonary hypertension, deconditioning. SUBJECTIVE: The patient is lying flat in bed without any cardiac symptoms. No chest pain, shortness of breath or palpitations, but he says when he does physical therapy, he gets shortness of breath at exertion, but it is also improving. PHYSICAL EXAMINATION VITAL SIGNS: Blood pressure 118/51, respirations 20, pulse 77, and temperature 97.8. HEENT: Head is normocephalic. Eyes; pupils are normal. Conjunctivae slightly pale. NECK: JVP low. Carotids equal. THORAX: AP diameter normal. LUNGS: Showed no rales but has a few wheezing. CARDIOVASCULAR: S1 and S2. ABDOMEN: Soft and nontender. No organomegaly. Bowel sounds normal. EXTREMITIES: No clubbing. No cyanosis. LABORATORY DATA: Lab done on 05/26/2017 showed WBC 3.0, hemoglobin 11.0, hematocrit 33.2, platelet 152. [place] sugar today is 234. Electrolytes done on 05/28/2017 showed sodium 134, potassium 4.4, BUN 34, creatinine 1.2, calcium 9.0. DIAGNOSES: Severe aortic stenosis, status post aortic valve replacement with prosthetic aortic valve, mitral valve repair with insertion of ring, one-vessel coronary artery bypass graft surgery of right coronary artery, severe pulmonary hypertension, diabetes, hypertension, hyperlipidemia, deconditioning. PLAN: We will continue physical therapy. We will continue Duoneb and nebulizer therapy with aspirin, Lasix, metoprolol, Plavix. The patient also ____ prednisone 20 mg daily, Revatio 20 mg t.i.d., Singulair 10 mg at bedtime, lisinopril 2.5 mg daily. We will continue physical therapy. We will follow with you. Guru Khan MD
[2017-05-30] MEDS: Latanoprost 2.5 ml Opht Soln OU SCH (21:45)
[2017-05-30] MEDS: Insulin Detemir 100 units/ml Vial (Levemir) SC SCH (22:57)
--- NOTE | 2017-05-31 01:24 | PN ---
DATE: 05/30/2017 REFERRING PHYSICIAN: Dr. Booker SUBJECTIVE: The patient is lying in the bed at 45 degrees, short of breath, has some cough and wheezing. No nausea. No vomiting, diarrhea, leg pain, or leg swelling. OBJECTIVE: GENERAL: In no acute distress. VITAL SIGNS: Temperature is 98, heart rate is 77, respiratory rate is 20 to 30, blood pressure is 108/52, pulse ox 99% on nasal cannula. HEENT: Moist mucous membrane. Crowded airway. NECK: Supple. No JVD. LUNGS: Bilateral expiratory wheezing. HEART: S1 and S2. ABDOMEN: Soft and nontender. No organomegaly. EXTREMITIES: No edema. NEUROLOGIC: Awake, alert, and follows simple commands. MEDICATIONS: He is on Ambien 10 mg at bedtime p.r.n., DuoNeb q. 6 hours p.r.n., also DuoNeb q. 4 hours round the clock, Ecotrin 81 mg daily, Flonase 1 spray to each nostril daily, insulin coverage, Lasix 20 mg twice a day, Levemir 10 units subcutaneous at bedtime, metoprolol tartrate 12.5 mg twice a day, Lovaza 1 g twice a day, Lovenox 40 mg subcutaneous daily, magnesium oxide 400 mg daily, gabapentin 300 mg at bedtime, niacin 500 mg twice a day, nasal saline drops to each nostril q. 4 hours, Plavix 75 mg daily, prednisone 20 mg daily, Protonix 40 mg daily, Prozac 40 mg daily, Remeron 15 mg at bedtime, Revatio 20 mg 3 times a day, Singulair 10 mg daily, multivitamins daily, and Zestril 2.5 mg daily. LABORATORY DATA: Shows hemoglobin 11, that is on 05/26/2017. Blood sugar 234. IMPRESSION AND PLAN: Cardiomyopathy with valvular heart disease, severe pulmonary hypertension, history of valve replacement, coronary artery disease, diabetes, may have sleep apnea syndrome. I believe his wheezing is more from cardiac dysfunction. Continue prednisone inhaled bronchodilator, may increase his Lasix. Continue Revatio 20 mg q. 8 hours. Encourage BiPAP use at night. Thank you and we will follow with you. Mohammad Akash, MD
[2017-05-31] MEDS: Albuterol-Ipratrop 3 mg / 0.5 (3 ml) UD IH SCH ×4 (02:30→14:43)
[2017-05-31] MEDS: Enoxaparin 40 mg Syringe SC SCH (05:26)
[2017-05-31] MEDS: Pantoprazole 40 mg EC Tab PO SCH (05:29)
[2017-05-31 06:19] VITALS: RESP 22; TEMP 97.4; O2SAT 97
[2017-05-31] MEDS: Insulin Lispro (humaLOG) LOW Coverage SC SCH ×3 (06:38→17:30)
[2017-05-31 08:19] LABS: ALB/GLOB RATIO 1.1 (1.1-1.8); ALKALINE PHOSPHATASE 109 U/L (38-126); ALT/SGPT 57 U/L (7-56); AST/SGOT 43 U/L (17-59); BILIRUBIN,TOTAL 0.7 mg/dL (0.2-1.3); BLOOD UREA NITROGEN 40 mg/dL (7-21); CALCIUM 9.3 mg/dL (8.4-10.5); CARBON DIOXIDE 29 mmol/L (21-33); CHLORIDE 92 mmol/L (98-107); GFR AFRICAN-AMERICAN > 60; GLUCOSE,RANDOM 204 mg/dL (70-110); POTASSIUM 4.8 mmol/L (3.6-5.0); SODIUM 130 mmol/L (132-148); TOTAL PROTEIN 6.3 g/dL (5.8-8.3)
[2017-05-31] MEDS: Omega-3-Acid Ethyl Esters 1 GM Cap PO SCH ×2 (09:06→17:41)
[2017-05-31] MEDS: Sildenafil 20 MG TAB PO SCH ×3 (09:06→17:42)
[2017-05-31] MEDS: Magnesium Oxide 400 mg Tab UD PO SCH (09:06)
[2017-05-31] MEDS: Multivitamin With Minerals Tab PO SCH (09:13)
[2017-05-31] MEDS: Fluticasone Nasal 50 mcg/Spray NS SCH (10:00)
[2017-05-31 17:46] VITALS: BP 127/51; PULSE 84
--- NOTE | 2017-05-31 21:14 | PN ---
DATE: 05/31/2017 LOCATION: The patient in room 320, bed 1. REASON FOR CONSULTATION: Followup history of severe aortic stenosis, status post open heart surgery, with status post AVR, replacement and mitral valve repair with ring insertion, one-vessel CABG, severe pulmonary hypertension, deconditioning, shortness of breath. SUBJECTIVE: The patient is lying flat in bed without shortness of breath, chest pain or palpitation, but he complained that on minimal exertion he is getting shortness of breath. PHYSICAL EXAMINATION: VITAL SIGNS: Blood pressure 157/71, respirations 22, pulse 88, and temperature 97.4. HEENT: Head is normocephalic. Eyes; pupils are normal. Conjunctivae slightly pale. NECK: JVP low. Carotid equal. THORAX: AP diameter normal. CARDIOVASCULAR: S1 and S2 systolic murmur. No rub. LUNGS: Normal lungs. Few basilar rales. ABDOMEN: Soft and nontender. No organomegaly. EXTREMITIES: No clubbing. No cyanosis. LABORATORY DATA: WBC 3.0, hemoglobin 11.0, hematocrit 33.2, platelet 152. Sodium 130, potassium 4.8, BUN 40, creatinine 1.1, random glucose 204, AST 43, ALT 57, total protein 6.3, hemoglobin 3.3. DIAGNOSES: Status post aortic valve replacement due to severe aortic stenosis status post mitral valve repair with a ring insertion, one-vessel coronary artery bypass graft surgery of right coronary artery, severe pulmonary hypertension, diabetes, hypertension, hyperlipidemia, deconditioning. PLAN: Since the patient has few basilar rales, I will give Lasix 40 IV stat one dose and see response. The patient already on furosemide 20 p.o. q. 8 hour, metoprolol tartrate 12.5 b.i.d., aspirin 81 daily, DuoNeb hand nebulizer therapy, Lovenox 40 mg subcu daily, magnesium oxide 400 mg p.o. daily, Neurontin 300 mg p.o. at bedtime, Plavix 75 daily, prednisone 20 mg p.o. daily, Prozac 40 mg p.o. daily, Remeron 15 mg p.o. at bedtime, Revatio 20 mg p.o. t.i.d., Singulair 10 mg at bedtime, Zestril 2.5 daily. We will continue to follow. Guru Khan MD [facility] # [id number]
--- NOTE | 2017-06-01 00:15 | PN ---
DATE: 05/31/2017 PULMONARY PROGRESS NOTE REFERRING PHYSICIAN: Arya Booker MD SUBJECTIVE: The patient is lying in the bed, head at 45 degrees, is at bedside, short of breath with some cough. No hemoptysis. No hematemesis or hematuria. No diarrhea. Has significant leg swelling. OBJECTIVE: GENERAL: In no acute distress. VITAL SIGNS: Temperature is 98, heart rate is 88, respiratory rate is 22, blood pressure is 127/51, pulse ox is 97% on 4 L nasal cannula. HEENT: Moist mucous membrane. Crowded airway. NECK: Supple. No JVD. LUNGS: Prolonged expiratory phase with some wheezing. HEART: S1 and S2. ABDOMEN: Soft and nontender. No organomegaly. EXTREMITIES: No edema. NEUROLOGIC: Awake, alert, and follow simple commands. MEDICATIONS: He is on Ambien 10 mg at bedtime p.r.n., DuoNeb q. 6 hours p.r.n., also q. 4 hours round the clock, Ecotrin 81 mg daily, Flonase 1 spray to each nostril daily, Lasix 20 mg q. 8 hour, insulin coverage also metoprolol tartrate 12.5 mg twice a day, Lovaza 1 g twice a day, magnesium oxide 400 mg daily, Neurontin 300 mg at bedtime, niacin 500 mg twice a day, nasal saline q. 4 hours p.r.n., Plavix 75 mg daily, prednisone 20 mg daily, Protonix 40 mg daily, Prozac 40 mg daily, mirtazapine 15 mg at bedtime, Revatio 20 mg 3 times a day, Singulair 10 mg daily, multivitamins daily, and Zestril 2.5 mg daily. LABORATORY DATA: Shows sodium 130, potassium 4.8, chloride 92, bicarbonate 29, BUN 14, creatinine 1.1, glucose 204, calcium 9.3. AST 43, ALT is 57, alk phos is 109. IMPRESSION AND PLAN: Cardiomyopathy with valvular heart disease, severe pulmonary hypertension, coronary artery disease, diabetes, may have sleep apnea syndrome. Case discussed with the at bedside. All the questions answered. Also spoke to Dr. Booker in detail. The patient's condition is deteriorating because of right heart failure. Already on Revatio and Lasix, not responding much to it. Other choices left is Prostacyclin IV which is not available in this hospital. What other possibilities are to transfer the patient to intensive care unit and again trying dobutamine. Originally, he is responding well to it, yes of course it has it's own inherited risk of which is cardiac arrhythmia in this elderly gentleman. So, if acceptable with the family, the patient could be transferred to intensive care unit, placed on dobutamine dose, titrate probably up to 5 mcg/kg/min, understanding the risk of cardiac arrhythmia that should help the patient to unload the right heart and make him feel better, then we can decide to use, continue Revatio and also diuretics. On the long run, he may need triple pulmonary hypertension therapy including pulmonary vasodilators like Revatio adding with endothelial inhibitor and also Prostacyclin. Overall, poor prognosis. Thank you and we will follow with you. Guru Bustos MD
--- NOTE | 2017-06-01 21:27 | PN ---
DATE: 05/29/2017 SUBJECTIVE: The patient seems comfortable. He does get some short of breath with mild exertion and he has mild leg edema. He has otherwise no new complaint. He is seen by business planner as well as by track production engineer. PHYSICAL EXAMINATION: VITAL SIGNS: Temperature 97.9, heart rate 74, blood pressure 133/69, and saturating 96% on 3 L. HEENT: Head and neck exam normal. No JVD. No thyromegaly. CARDIOPULMONARY: First sound and second sound normal. There is systolic ejection murmur over the aortic area. CHEST: There is mild wheeze. ABDOMEN: Soft and nontender. EXTREMITIES: Mild edema. NEUROLOGIC: Normal. IMPRESSION AND PLAN: 1. Chronic pulmonary hypertension with recent worsening. Chronic diastolic heart failure, left-sided. Chronic obstructive pulmonary disease, and obstructive sleep apnea. Plan; continue oxygen, continue inhaled bronchodilators or consider p.o. prednisone and we will continue current therapy. He is getting Lasix 20 mg b.i.d., may be we will change it to IV and we will see how he does. Continue inhaled bronchodilators and continue gastrointestinal and deep venous thrombosis prophylaxis and we will follow up clinically. 2. Hypercholesterolemia, history of coronary artery disease, history of valve replacement and repair; valve replacement aortic and mitral; history of peripheral neuropathy, gait disorder, chronic osteoarthritis, and depression. Plan; continue current therapy. Continue Wellbutrin, continue Strattera, continue Lipitor, continue Lovenox and Protonix. We will follow and continue Revatio also for his pulmonary hypertension. We will continue current therapy and see how he does on these medications; otherwise, we will have to consider further treatment; we will leave that to Dr. Bustos for further pulmonary treatment and evaluation. Arya Booker MD
--- NOTE | 2017-06-02 14:35 | DS ---
The patient will be discharged from Transitional Care Unit. HISTORY OF PRESENT ILLNESS: Patient, respiratory quiroga, is not getting better, will be discharged to emergency room for further evaluation and treatment as recommendations by health education aide and the facialist. Patient seems in mild respiratory distress and has no fever, no nausea, no vomiting. Patient will be transferred to ER for further evaluation and treatment. Patient, while he was in TCU, was getting physical therapy, was getting IV Lasix, getting p.o. prednisone, recently received Lasix on the day of discharge, but seems not helping. Patient was getting also Revatio, inhaled bronchodilator, p.o. steroids, and oxygen. Seems not doing well. We will transfer the patient to emergency room for further evaluation. Patient was seen by health education aide's consultation and facialist. PHYSICAL EXAMINATION: VITAL SIGNS: On discharge date was as follow, his temperature was 97.4, heart rate was 88, blood pressure 133/59, respiratory rate 22, and was saturating in 3 L . HEAD AND NECK: No JVD. CHEST: Clear. CARDIAC: First sound and second sound normal. Systolic ejection murmur. ABDOMEN: Soft. EXTREMITIES: Edema, left more than right. NEUROLOGIC: He was normal. DISCHARGE DIAGNOSES: Acute respiratory distress, pulmonary hypertension, congestive heart failure, leg edema, chronic obstructive pulmonary disease, obstructive sleep apnea, chronic diastolic heart failure, depression, generalized weakness, and gait disorder. PLAN: Discharge the patient to ER for further evaluation and treatment. Arya Booker MD
== END 2017-05-31 19:07 | disposition short-term general hospital (02) | DRG 191 ==
LOC: TRCU 17:30
PROVIDERS: ADMIT Internal Medicine; ATTEND Internal Medicine
PROC: F07Z9ZZ Gait Training/Functional Ambulation Treatment (ICD-10-PCS; principal; 2017-05-26)
PROC: F07M6ZZ Therapeutic Exercise Treatment of Musculoskeletal System - Whole Body (ICD-10-PCS; 2017-05-26)
DX: J44.9 Chronic obstructive pulmonary disease, unspecified (principal); I50.32 Chronic diastolic (congestive) heart failure; E11.42 Type 2 diabetes mellitus with diabetic polyneuropathy; I27.29 Other secondary pulmonary hypertension; I42.9 Cardiomyopathy, unspecified; I50.82 Biventricular heart failure; I25.10 Atherosclerotic heart disease of native coronary artery without angina pectoris; I11.0 Hypertensive heart disease with heart failure; G47.33 Obstructive sleep apnea (adult) (pediatric); F41.9 Anxiety disorder, unspecified; F51.04 Psychophysiologic insomnia; D64.9 Anemia, unspecified; E78.00 Pure hypercholesterolemia, unspecified; E78.5 Hyperlipidemia, unspecified; Z87.891 Personal history of nicotine dependence; I08.0 Rheumatic disorders of both mitral and aortic valves; R09.02 Hypoxemia; Z79.4 Long term (current) use of insulin; Z79.899 Other long term (current) drug therapy; Z95.1 Presence of aortocoronary bypass graft; Z95.3 Presence of xenogenic heart valve

== ENCOUNTER 2017-05-31 19:07 | Inpatient (IN) | payer MEDICARE, OTHER ==
[2017-05-31 19:12] VITALS: BMI 26.6
[2017-05-31] MEDS ORDERED: Albuterol-Ipratrop 3 mg / 0.5 (3 ml) UD ONE (19:31)
[2017-05-31] MEDS ORDERED: Albuterol-Ipratrop 3 mg / 0.5 (3 ml) UD IH STA (19:35)
--- NOTE | 2017-05-31 19:47 | ED PDOC ---
Arrival/HPI - General Chief Complaint: Shortness Of Breath Time Seen by Provider: 05/31/17 19:30 Historian: Patient - History of Present Illness Narrative History of Present Illness (Text): 05/31/17 19:35 A 82 year old male, whose past medical history includes pulmonary hypertension, CHF, obstructive sleep apnea, coronary artery bypass, aortic and mitral valve repair, diabetes, and COPD, presents to the emergency department transferred from transitional care for evaluation of new onset of shortness of breath, which began this evening. The patient states earlier he was getting up to go to the restroom when he began having shortness of breath. He denies any fever, chills, chest pain, cough, leg pain, nausea, vomiting, or any other complaints at this time. Time/Duration: 1-3 hours Symptom Onset: Sudden Symptom Course: Unchanged Quality: Other (shortness of breath ) Activities at Onset: Light Context: Standing Past Medical History - Provider Review Nursing Documentation Reviewed: Yes - Infectious Disease Hx of Infectious Diseases: None - Tetanus Immunization Tetanus Immunization: Unknown - Cardiac Hx Cardiac Disorders: Yes Hx Congestive Heart Failure: Yes - Pulmonary Hx Chronic Obstructive Pulmonary Disease (COPD): Yes - Neurological HX Cerebrovascular Accident: Yes - HEENT Hx HEENT Disorder: Yes Hx Glaucoma: Yes - Renal Hx Renal Disorder: No - Endocrine/Metabolic Hx Diabetes Mellitus Type 2: Yes - Hematological/Oncological Hx Blood Disorders: Yes (blood transfusion) - Integumentary Hx Dermatological Disorder: Yes Other/Comment: BILATERAL LE EDEMA MORE TO LEFT WITH DARKENED BROWN SKIN DISCOLORATION. - Musculoskeletal/Rheumatological Hx Falls: Yes - Gastrointestinal Hx Gastrointestinal Disorders: Yes (CONSTIPATION) Hx Gastroesophageal Reflux: Yes - Genitourinary/Gynecological Hx Genitourinary Disorders: Yes (ERECTILE DYSFUNCTION,BPH) Hx Prostate Problems: Yes - Psychiatric Hx Psychophysiologic Disorder: Yes (MEMORY LOSS) Hx Anxiety: Yes Hx Depression: Yes Hx Substance Use: No - Past Surgical History Past Surgical History: Unable to Obtain - Surgical History Hx Open Heart Surgery: Yes (CABG 1999) Hx Valve Replacement: Yes (2006) - Anesthesia Hx Anesthesia: Yes Hx Anesthesia Reactions: No Hx Malignant Hyperthermia: No - Suicidal Assessment Feels Threatened In Home Enviroment: No Family/Social History - Physician Review Nursing Documentation Reviewed: Yes Family/Social History: No Known Family HX Smoking Status: Never Smoked Hx Alcohol Use: No Hx Substance Use: No Hx Substance Use Treatment: No Allergies/Home Meds Allergies/Adverse Reactions: Allergies No Known Allergies Allergy (Verified 05/20/17 19:36) Home Medications: Home Meds Medication Instructions Recorded Confirmed Albuterol HFA [Ventolin HFA 90 90 mcg IH QID 05/20/17 05/31/17 mcg/actuation (8 g)] Atomoxetine HCl [Strattera] 60 mg PO DAILY 05/20/17 05/31/17 Atorvastatin [Lipitor] 40 mg PO DAILY 05/20/17 05/31/17 Bupropion HCl [Wellbutrin Sr] 75 mg PO BID 05/20/17 05/31/17 Cetirizine HCl [Zyrtec] 10 mg PO DAILY 05/20/17 05/31/17 Ergocalciferol (Vitamin D2) 1.25 mg PO DAILY 05/20/17 05/31/17 [Vitamin D2] Esomeprazole Magnesium [Nexium] 40 mg PO DAILY 05/20/17 05/31/17 Fluticasone/Salmeterol 500/50 1 puff IH BID 05/20/17 05/31/17 [Advair Diskus 500/50] Gabapentin [Neurontin] 300 mg PO DAILY 05/20/17 05/31/17 Magnesium Oxide [Mag-Ox] 400 mg PO BID 05/20/17 05/31/17 Metformin HCl [Glucophage] 850 mg PO BID 05/20/17 05/31/17 Niacin [Niaspan] 500 mg PO BID 05/20/17 05/31/17 Sildenafil [Revatio] 20 mg PO DAILY 05/20/17 05/31/17 Review of Systems - Physician Review All systems were reviewed & negative as marked: Yes - Review of Systems Constitutional: absent: Fevers, Other (chills ) Respiratory: SOB. absent: Cough Cardiovascular: absent: Chest Pain Gastrointestinal: absent: Nausea, Vomiting Musculoskeletal: absent: Other (leg pain ) Physical Exam Vital Signs Reviewed: Yes Vital Signs Temp Pulse Resp BP Pulse Ox 05/31/17 20:50 143/56 L 05/31/17 20:16 98.8 F 88 22 146/68 100 05/31/17 19:15 23 05/31/17 19:12 98.8 F 94 H 28 H 148/84 88 L Temperature: Afebrile Blood Pressure: Normal Pulse: Tachycardic Respiratory Rate: Tachypneic Appearance: Positive for: Well-Appearing, Non-Toxic, Comfortable Pain Distress: None Mental Status: Positive for: Alert and Oriented X 3 Finger Stick Blood Glucose: 212 - Systems Exam Head: Present: Atraumatic, Normocephalic Pupils: Present: PERRL Extroacular Muscles: Present: EOMI Conjunctiva: Present: Normal Mouth: Present: Moist Mucous Membranes Neck: Present: Normal Range of Motion Respiratory/Chest: Present: Good Air Exchange, Rhonchi (rhonchi bilaterally). No: Respiratory Distress, Accessory Muscle Use Cardiovascular: Present: Regular Rate and Rhythm, Normal S1, S2. No: Murmurs Abdomen: Present: Normal Bowel Sounds. No: Tenderness, Distention, Peritoneal Signs Back: Present: Normal Inspection Upper Extremity: Present: Normal Inspection. No: Cyanosis, Edema Lower Extremity: Present: Normal Inspection. No: Edema, CALF TENDERNESS, Preeti' s Sign Neurological: Present: GCS=15, CN II-XII Intact, Speech Normal Skin: Present: Warm, Dry, Normal Color. No: Rashes Psychiatric: Present: Alert, Oriented x 3, Normal Insight, Normal Concentration Medical Decision Making ED Course and Treatment: 05/31/17 19:44 Impression: A 82 year old male with shortness of breath. Differential Diagnosis included but are not limited to: CHF vs. Pneumonia vs. Pulmonary embolism Plan: -- EKG -- Chest X-ray -- Labs -- Reassess and disposition Progress Notes: EKG: Ordered, reviewed, and independently interpreted the EKG. Rate : 93 BPM Rhythm : NSR Interpretation : Incomplete RBBB, right ventricular hypertrophy, inferior infarct. Non specific ST/T changes. 05/31/17 20:15 Reviewed radiology, CXR shows CHF. 05/31/17 20:[address] Booker who accepts the patient under his services. Case also discussed with Dr. Batista who will admit the patient to the CCU. - Lab Interpretations Lab Results: 05/31/17 19:20 05/31/17 19:20 Lab Results 05/31/17 19:20: WBC 4.9 D, RBC 3.66, Hgb 11.8 L, Hct 34.5 L, MCV 94.3, MCH 32.2 , MCHC 34.2, RDW 13.8, Plt Count 168, MPV 11.6 H 05/31/17 19:20: Sodium 130 L, Potassium 5.2 H, Chloride 91 L, Carbon Dioxide 26 , Anion Gap 18, BUN 44 H, Creatinine 1.4, Est GFR ( Amer) 59, Est GFR ( Non-Af Amer) 49, Random Glucose 239 H, Calcium 9.6, Total Bilirubin 0.9, AST 89 H D, ALT 72 H, Alkaline Phosphatase 133 H D, Lactate Dehydrogenase 745 H, Total Creatine Kinase 81, Troponin I 0.03 D, NT-Pro-B Natriuret Pep 5500 H, Total Protein 7.6, Albumin 4.2, Globulin 3.4, Albumin/Globulin Ratio 1.2 05/31/17 19:20: PT 15.4 H, INR 1.40 H, APTT 29.6 I have reviewed the lab results: Yes - RAD Interpretation Radiology Orders: 05/31/17 19:36 CHEST PORTABLE [RAD] Stat Burner Tender: ED Physician - EKG Interpretation Interpreted by ED Physician: Yes Type: 12 lead EKG - Medication Orders Current Medication Orders: Atorvastatin Calcium (Lipitor) 40 mg PO DAILY BAKARI Bupropion HCl (Wellbutrin) 75 mg PO BID BAKARI Gabapentin (Neurontin) 300 mg PO DAILY BAKARI PRN Reason: Protocol Dobutamine HCl/Dextrose (Dobutamine/Dextrose 5% 500mg/250ml) 500 mg in 250 mls @ 4.355 mls/hr IV .Q24H PRN; Protocol; 2 MCG/KG/MIN PRN Reason: TITRATE PER PROTOCOL Non-Formulary Medication (Atomoxetine Hcl [Strattera]) 60 mg PO DAILY BAKARI Non-Formulary Medication (Niacin [Niaspan]) 500 mg PO BID BAKARI Sildenafil Citrate (Revatio) 20 mg PO DAILY BAKARI Discontinued Medications Albuterol/Ipratropium (Duoneb 3 Mg/0.5 Mg (3 Ml) Ud) 3 ml IH ONCE STA Stop: 05/31/17 19:36 Last Admin: 05/31/17 21:06 Dose: Furosemide (Lasix) 40 mg IVP ONCE ONE Stop: 05/31/17 20:31 Last Admin: 05/31/17 20:50 Dose: 40 mg MAR Blood Pressure Document 05/31/17 20:50 AB (Rec: 05/31/17 20:50 AB [facility] – [id number]) Blood Pressure Blood Pressure (100/60-150/90 mm Hg) 143/56 IVP Administration Document 05/31/17 20:50 AB (Rec: 05/31/17 20:50 AB [facility] – [id number]) Charges for Administration # of IVP Administrations 1 - Scribe Statement The provider has reviewed the documentation as recorded by the Scriblois Mabry Provider Scribe Attestation: All medical record entries made by the Scribe were at my direction and personally dictated by me. I have reviewed the chart and agree that the record accurately reflects my personal performance of the history, physical exam, medical decision making, and the department course for this patient. I have also personally directed, reviewed, and agree with the discharge instructions and disposition. Disposition/Present on Arrival - Present on Arrival Any Indicators Present on Arrival: No History of DVT/PE: No History of Uncontrolled Diabetes: No Urinary Catheter: No History of Decub. Ulcer: No History Surgical Site Infection Following: None - Disposition Have Diagnosis and Disposition been Completed?: Yes Diagnosis: CHF (congestive heart failure) Disposition: HOSPITALIZED Disposition Time: 20:31 Patient Plan: ICU Patient Problems: Current Active Problems Problem Status Onset CHF (congestive heart failure) Acute Condition: GUARDED
[2017-05-31 19:53] LABS: HEMOGLOBIN 11.8 g/dL (14.0-18.0); MEAN CELL VOLUME 94.3 fl (80.0-105.0); MEAN CORPUSCULAR HEMOGLOBIN 32.2 pg (25.0-35.0); MEAN CORPUSCULAR HGB CONC 34.2 g/dl (31.0-37.0); MEAN PLATELET VOLUME 11.6 fl (7.0-11.0); RBC 3.66 10^6/uL (3.5-6.1); RED CELL DISTRIBUTION WIDTH 13.8 % (11.5-14.5); WHITE BLOOD COUNT 4.9 10^3/ul (4.5-11.0)
[2017-05-31 20:17] LABS: INR 1.4 (0.93-1.08); PARTIAL THROMBOPLASTIN TIME 29.6 Seconds (25.1-36.5); PROTHROMBIN TIME 15.4 SECONDS (9.4-12.5)
[2017-05-31 20:21] LABS: TROPONIN I 0.03 ng/mL
[2017-05-31] MEDS ORDERED: DOBUTamine 500mg/250ml D5W 500 MG/250 ML BAG IV PRN (20:25)
[2017-05-31 20:40] LABS: CALCIUM 9.6 mg/dL (8.4-10.5)
[2017-05-31 20:41] LABS: ALB/GLOB RATIO 1.2 (1.1-1.8); ALBUMIN 4.2 g/dL (3.0-4.8)
--- NOTE | 2017-05-31 21:32 | CP.PCM.CON ---
<Saeed Lara - Last Filed: 05/31/17 22:40> History of Present Illness - History of Present Illness History of Present Illness: ICU Consult Note cc: dyspnea HPI: 82 year old [place] male with past medical history of severe pulmonary hypertension, hypertension, CAD, DM II, CHF s/p CABG and aortic valve replacement (bioprosthetic) who presents with 3 days of worsening dyspnea. He reports difficulty sleeping with frequent night time awakening. He also reports having been admitted recently for pulmonary hypertension. Denies fever, chills, cough, chest pain, palpitations, SOB, abdominal pain, nausea, vomiting, focal weakness, numbness, tingling. 12point ROS as per HPI above, otherwise negative PMH: as stated above PSH: CABG in 1999 and aortic valve replacement in 2006, left femoral neck fracture ORIF Allergies: NKDA Medications: see AUG PMD: Dr. Booker Past Patient History - Infectious Disease Hx of Infectious Diseases: None - Tetanus Immunizations Tetanus Immunization: Unknown - Past Medical History & Family History Past Medical History?: Yes - Past Social History Smoking Status: Never Smoked - CARDIAC Hx Cardiac Disorders: Yes Hx Congestive Heart Failure: Yes - PULMONARY Hx Chronic Obstructive Pulmonary Disease (COPD): Yes - NEUROLOGICAL HX Cerebrovascular Accident: Yes - HEENT Hx HEENT Problems: Yes Hx Glaucoma: Yes - RENAL Hx Chronic Kidney Disease: No - ENDOCRINE/METABOLIC Hx Diabetes Mellitus Type 2: Yes - HEMATOLOGICAL/ONCOLOGICAL Hx Blood Disorders: Yes (blood transfusion) - INTEGUMENTARY Hx Dermatological Problems: Yes Other/Comment: BILATERAL LE EDEMA MORE TO LEFT WITH DARKENED BROWN SKIN DISCOLORATION. - MUSCULOSKELETAL/RHEUMATOLOGICAL Hx Falls: Yes - GASTROINTESTINAL Hx Gastrointestinal Disorders: Yes (CONSTIPATION) Hx Gastroesophageal Reflux: Yes - GENITOURINARY/GYNECOLOGICAL Hx Genitourinary Disorders: Yes (ERECTILE DYSFUNCTION,BPH) Hx Prostate Problems: Yes - PSYCHIATRIC Hx Psychophysiologic Disorder: Yes (MEMORY LOSS) Hx Anxiety: Yes Hx Depression: Yes Hx Substance Use: No - SURGICAL HISTORY Hx Open Heart Surgery: Yes (CABG 1999) Hx Valve Replacement: Yes (2006) - ANESTHESIA Hx Anesthesia: Yes Hx Anesthesia Reactions: No Hx Malignant Hyperthermia: No Meds Allergies/Adverse Reactions: Allergies Allergy/AdvReac Type Severity Reaction Status Date / Time No Known Allergies Allergy Verified 05/20/17 19:36 - Medications Medications: Current Medications Albuterol/Ipratropium (Duoneb 3 Mg/0.5 Mg (3 Ml) Ud) 3 ml IH Q2H PRN PRN Reason: Shortness of Breath Atorvastatin Calcium (Lipitor) 40 mg PO DAILY [facility] Bupropion HCl (Wellbutrin) 75 mg PO BID [facility] Furosemide (Lasix) 40 mg IVP Q12 [facility] Gabapentin (Neurontin) 300 mg PO DAILY [facility] PRN Reason: Protocol Niacin (Niacin) 500 mg PO BID [facility] Atomoxetine Hcl [ (Strattera] 60 Mg) 60 mg PO DAILY [facility] Sildenafil Citrate (Revatio) 20 mg PO DAILY [facility] Physical Exam - Constitutional Appears: No Acute Distress - Head Exam Head Exam: ATRAUMATIC, NORMAL INSPECTION, NORMOCEPHALIC - Eye Exam Eye Exam: EOMI, PERRL - ENT Exam ENT Exam: Mucous Membranes Moist - Respiratory Exam Respiratory Exam: Rales. absent: Rhonchi, Wheezes - Cardiovascular Exam Cardiovascular Exam: RRR, +S1, +S2, Systolic Murmur. absent: Gallop, Rubs - GI/Abdominal Exam GI & Abdominal Exam: Normal Bowel Sounds, Soft. absent: Distended, Firm, Guarding, Tenderness - Extremities Exam Extremities exam: Negative for: calf tenderness, pedal edema - Neurological Exam Neurological exam: Alert, CN II-XII Intact, Oriented x3 - Psychiatric Exam Psychiatric exam: Normal Affect, Normal Mood - Skin Skin Exam: Dry, Intact, Normal Color, Warm Results - Vital Signs Recent Vital Signs: Last Vital Signs Temp 98.8 F 05/31/17 20:16 Pulse 92 H 05/31/17 21:21 Resp 22 05/31/17 20:16 BP 140/64 05/31/17 21:21 Pulse Ox 100 05/31/17 20:16 - Labs Result Diagrams: 05/31/17 19:20 05/31/17 19:20 Assessment & Plan - Assessment and Plan (Free Text) Plan: 82yo male with history of severe pulmonary hypertension, LVEF of 65% presents c/ o dyspnea for the past 3 days Neuro: -Awake, alert, oriented x3; maintain normothermia Cardio: -EKG reviewed -Troponin negative x1, will trend -Diuresis with lasix 40mg IVP q12h -Strict I's and O's -Daily weight -Cardio consulted - Dr. Sosa Pulm: -Monitor and maintain O2 Sat > 90% -HOB > 35' -CXR reviewed; bilateral vascular congestion likely secondary to severe pulmonary hypertension GI: -GI prophylaxis with protonix Endo: -Monitor and maintain euglycemia with blood glucose 140-180's -Heart healthy/consistent carb diet -Fingersticks achs -CCD/HHD Nephro: -Strict I's and O's, daily weight -Hyponatremia likely secondary to fluid overload -Monitor and replete electrolytes as indicated Heme: DVT prophylaxis with heparin SC ID: -afebrile, no leukocytosis -no signs/symptoms of infection at this time Patient seen and case discussed/reviewed with attending, Dr. Colvin <Tucker Colvin - Last Filed: 06/03/17 06:30> Meds - Medications Medications: Current Medications Atorvastatin Calcium (Lipitor) 40 mg PO DAILY [facility] Last Admin: 06/02/17 09:48 Dose: 40 mg Bupropion HCl (Wellbutrin) 75 mg PO BID [facility] Last Admin: 06/02/17 18:59 Dose: 75 mg Enoxaparin Sodium (Lovenox) 40 mg SC DAILY [facility] PRN Reason: Protocol Last Admin: 06/02/17 12:03 Dose: Not Given Furosemide (Lasix) 40 mg IVP Q12 [facility] Last Admin: 06/02/17 21:45 Dose: 40 mg Gabapentin (Neurontin) 300 mg PO DAILY [facility] PRN Reason: Protocol Last Admin: 06/02/17 09:47 Dose: 300 mg Dobutamine HCl/Dextrose (Dobutamine/Dextrose 5% 500mg/250ml) 500 mg in 250 mls @ 5.64 mls/hr IV .Q24H PRN; 2.5 MCG/KG/MIN PRN Reason: Pulmonary Hypertension. Last Admin: 06/01/17 04:45 Dose: 5.64 mls/hr Dobutamine HCl/Dextrose (Dobutamine/Dextrose 5% 500mg/250ml) 500 mg in 250 mls @ 5.613 mls/hr IV .Q24H PRN; Protocol; 2.5 MCG/KG/MIN PRN Reason: TITRATE PER PROTOCOL Last Admin: 06/02/17 18:51 Dose: 2.5 mcg/kg/min, 5.613 mls/hr Insulin Human Regular (Humulin R Low) 0 units SC [facility] PRN Reason: Protocol Last Admin: 06/02/17 22:00 Dose: Not Given Ipratropium [place] (Atrovent) 0.5 mg IH [id number] [facility] Last Admin: 06/03/17 01:30 Dose: 0.5 mg Ipratropium [place] (Atrovent) 0.5 mg IH [id number] PRN PRN Reason: Shortness of Breath Levalbuterol HCl (Xopenex) 1.25 mg IH [id number] [facility] Last Admin: 06/03/17 01:30 Dose: 1.25 mg Levalbuterol HCl (Xopenex) 0.63 mg IH [id number] PRN PRN Reason: Shortness of Breath Magnesium Oxide (Mag-Ox) 400 mg PO BID [facility] Last Admin: 06/02/17 18:56 Dose: 400 mg Methylprednisolone (Solu-Medrol) 20 mg IVP Q12 [facility] Last Admin: 06/02/17 22:00 Dose: 20 mg Metoprolol Tartrate (Lopressor) 12.5 mg PO Q12 [facility] Last Admin: 06/02/17 21:46 Dose: 12.5 mg Atomoxetine Hcl [ (Strattera] 60 Mg) 60 mg PO DAILY [facility] Pantoprazole Sodium (Protonix Inj) 40 mg IVP DAILY [facility] Last Admin: 06/02/17 09:46 Dose: 40 mg Sildenafil Citrate (Revatio) 20 mg PO Q8 [facility] Last Admin: 06/03/17 06:17 Dose: 20 mg Results - Vital Signs Recent Vital Signs: Last Vital Signs Temp 98 F 06/02/17 05:00 Pulse 79 06/03/17 05:10 Resp 75 H 06/03/17 05:10 BP 127/55 L 06/03/17 05:00 Pulse Ox 98 06/03/17 05:10 - Labs Result Diagrams: 06/03/17 05:15 06/03/17 05:15 Labs: Laboratory Results - last 24 hr 06/02/17 06/02/17 06/02/17 07:24 11:23 16:17 WBC RBC Hgb Hct MCV MCH MCHC RDW Plt Count MPV Gran % Lymph % (Auto) [place] % (Auto) Eos % (Auto) Baso % (Auto) Gran # Lymph # [place] # Eos # Baso # Sodium Potassium Chloride Carbon Dioxide Anion Gap BUN Creatinine Est GFR ( Amer) Est GFR (Non-Af Amer) POC Glucose (mg/dL) 187 H 206 H 199 H Random Glucose Calcium Total Bilirubin AST ALT Alkaline Phosphatase Total Protein Albumin Globulin Albumin/Globulin Ratio 06/02/17 06/03/17 06/03/17 21:30 05:15 05:15 WBC 5.8 D RBC 3.38 L Hgb 10.5 L Hct 31.6 L MCV 93.5 MCH 31.1 MCHC 33.2 RDW 14.1 Plt Count 152 MPV 11.6 H Gran % 88.1 H Lymph % (Auto) 5.5 L [place] % (Auto) 6.4 H Eos % (Auto) 0.0 L Baso % (Auto) 0.0 Gran # 5.13 Lymph # 0.3 L [place] # 0.4 Eos # 0.0 Baso # 0.00 Sodium 132 Potassium 4.7 Chloride 93 L Carbon Dioxide 29 Anion Gap 15 BUN 47 H Creatinine 1.2 Est GFR ( Amer) > 60 Est GFR (Non-Af Amer) 58 POC Glucose (mg/dL) 238 H Random Glucose 344 H* D Calcium 9.3 Total Bilirubin 0.9 AST 39 ALT 59 H Alkaline Phosphatase 104 Total Protein 6.0 Albumin 3.3 Globulin 2.7 Albumin/Globulin Ratio 1.2 Addendum Addendum: 06/03/17 06:30 pt was started on dobutamine as per dr robledo.
[2017-05-31] MEDS ORDERED: Influenza Vaccine 60 mcg/0.5 mL SYR (4YR UP) IM ONE (22:35)
[2017-05-31] MEDS ORDERED: Pneumococcal 23-Valent Vaccine IM ONE (22:35)
[2017-05-31] MEDS: Insulin Reg-LOW-Coverage SC SCH (23:00)
[2017-06-01] MEDS: Albuterol-Ipratrop 3 mg / 0.5 (3 ml) UD IH PRN ×2 (03:26→08:07)
[2017-06-01] MEDS ORDERED: DOBUTamine 500mg/250ml D5W 500 MG/250 ML BAG IV PRN (04:25)
[2017-06-01 05:50] LABS: ALB/GLOB RATIO 1.2 (1.1-1.8); ALBUMIN 3.8 g/dL (3.0-4.8); ALT/SGPT 77 U/L (7-56); AST/SGOT 78 U/L (17-59); BLOOD UREA NITROGEN 49 mg/dL (7-21); CALCIUM 9.6 mg/dL (8.4-10.5); GFR AFRICAN-AMERICAN > 60; GFR NON-AFRICAN AMERICAN 53
[2017-06-01 06:01] LABS: BASO # 0.01 K/mm3 (0.0-2.0); BASO % 0.2 % (0.0-3.0); EOS # 0.1 (0.0-0.7); EOS % 1.4 % (1.5-5.0); GRAN # 4.03 (1.4-6.5); GRAN % 70.8 % (50.0-68.0); LYMPH % 17.6 % (22.0-35.0); MEAN CELL VOLUME 94.2 fl (80.0-105.0); MEAN PLATELET VOLUME 12.1 fl (7.0-11.0); MONO # 0.6 (0.1-0.6); RBC 3.44 10^6/uL (3.5-6.1); RED CELL DISTRIBUTION WIDTH 13.8 % (11.5-14.5); WHITE BLOOD COUNT 5.7 10^3/ul (4.5-11.0)
[2017-06-01] MEDS: Insulin Reg-LOW-Coverage SC SCH ×4 (07:30→21:21)
--- NOTE | 2017-06-01 08:54 | RAD ---
HISTORY: sob COMPARISON: 05/20/2017 FINDINGS: LUNGS: No active pulmonary disease. PLEURA: No significant pleural effusion identified, no pneumothorax apparent. CARDIOVASCULAR: Moderate cardiomegaly and moderate vascular and interstitial congestion. Findings are unchanged OSSEOUS STRUCTURES: No significant abnormalities. VISUALIZED UPPER ABDOMEN: Normal. OTHER FINDINGS: None. IMPRESSION: Moderate cardiomegaly and moderate vascular and interstitial congestion. Findings are unchanged
--- NOTE | 2017-06-01 09:12 | PN ---
DATE: 06/01/2017 HANDCREW FOREMAN NOTE SUBJECTIVE: The patient was transferred from TCU last night for acute bronchospasm and exacerbation of his COPD, possible pulmonary edema and right-sided heart failure. Note that this morning, he had another episode of bronchospasm, needed stat DuoNeb treatment and IV Lasix. The patient improved once given aggressive treatment. He is awake and alert, on O2 support and no significant cough or wheezing. Does have some rhonchi and no fever or chills. No nausea or vomiting. No diarrhea. PHYSICAL EXAMINATION: VITAL SIGNS: Note that his temperature is 98, pulse is 117, respirations are 24 and blood pressure is 124/53. SKIN: Warm and dry. HEENT: Head is atraumatic and normocephalic. Eyes are reactive to light. Ears, nose, and throat seem to be within normal limits. NECK: Supple. No JVD. No thyroid enlargement. No lymph nodes. HEART: Has regular rate and rhythm. Normal S1 and S2, is tachycardic. LUNGS: Reveal mild rhonchi bilaterally and decreased breath sounds at the bases. ABDOMEN: Soft, nontender, decreased bowel sounds. GENITALIA AND RECTAL: Deferred. MUSCULOSKELETAL: No joint deformities. EXTREMITIES: Reveal trace lower extremity edema. NEUROLOGIC: He seems to be grossly intact. LABORATORY DATA: As far as his laboratories are concerned, his white count is 5.7, hemoglobin is 11.0, hematocrit is 32.4 with platelets of 172,000. His sodium is 131, potassium 4.4, chloride 92, CO2 of 28 with BUN of 49, creatinine of 1.3 and glucose of 164. IMPRESSION: As far as my impression, this patient has acute exacerbation of his chronic obstructive pulmonary disease with bronchospasm. Does have history of right heart failure and pulmonary hypertension. He has obstructive sleep apnea, coronary artery disease, status post coronary artery bypass graft as well as aortic and mitral valve repair and diabetes. PLAN: As far as our plan, the patient will continue with DuoNeb treatments. He is on dobutamine IV and he is getting O2 via nasal cannula. The patient is on Lasix 40 mg q. 12 h. and is getting sildenafil as well as Wellbutrin, Protonix and Lipitor . We will follow closely and treat aggressively along with the other consultants and primary care doctor. Dhruv Peñaloza MD [facility] # [id number]
--- NOTE | 2017-06-01 09:24 | RAD ---
HISTORY: chf COMPARISON: 05/31/2017 FINDINGS: LUNGS: No active pulmonary disease. PLEURA: No significant pleural effusion identified, no pneumothorax apparent. CARDIOVASCULAR: There is cardiomegaly with moderate vascular and interstitial congestion. Findings are unchanged OSSEOUS STRUCTURES: No significant abnormalities. VISUALIZED UPPER ABDOMEN: Normal. OTHER FINDINGS: None. IMPRESSION: There is cardiomegaly with moderate vascular and interstitial congestion. Findings are unchanged
[2017-06-01] MEDS: MethylPREDNISolone 40 mg Vial IVP SCH ×2 (09:51→21:11)
[2017-06-01] MEDS: Magnesium Oxide 400 mg Tab UD PO SCH ×2 (09:51→17:58)
[2017-06-01] MEDS ORDERED: Sildenafil 20 MG TAB PO SCH (10:00)
[2017-06-01] MEDS ORDERED: NIACIN 500 MG PO SCH (10:00)
[2017-06-01] MEDS ORDERED: Levalbuterol 1.25 MG/3 ML Inhal Soln UD IH PRN (12:29)
[2017-06-01] MEDS ORDERED: Levalbuterol 0.63 MG/3 ML Inhal Soln UD IH PRN (12:30)
[2017-06-01] MEDS: Enoxaparin 40 mg Syringe SC SCH (13:06)
[2017-06-01] MEDS: Sildenafil 20 MG TAB PO SCH ×2 (13:08→21:21)
[2017-06-01] MEDS: Ipratropium 0.02% Inhal Soln (0.5 mg/2.5 ml) UD IH SCH ×2 (13:49→19:51)
[2017-06-01] MEDS: Levalbuterol 1.25 MG/3 ML Inhal Soln UD IH SCH ×2 (13:49→19:52)
[2017-06-01] MEDS ORDERED: Albuterol-Ipratrop 3 mg / 0.5 (3 ml) UD IH SCH (14:00)
--- NOTE | 2017-06-01 17:26 | CARD ---
APPROVED REPORT EKG Measurement Heart [id number] <Conclusion> Normal sinus rhythm Possible Left atrial enlargement Right superior axis deviation Incomplete right bundle branch block Right ventricular hypertrophy Inferior infarct, age undetermined Abnormal ECG
--- NOTE | 2017-06-01 22:26 | PN ---
DATE: 06/01/2017 SUBJECTIVE: Emory Arboleda is in the unit, he seems, today noted when he getting out of the bed to the bedside, he got short of breath and his saturations go down on 4 to 5 L from 93% it go down to 88%, 89%. The patient got respiratory distress. currently also heart rate going 110, 120, currently on dobutamine and he is off beta-jess. on the bedside. The patient seeing the feeder tender today for communion, has a family member visited him, otherwise no new changes. PHYSICAL EXAMINATION: VITAL SIGNS: Is as follows, temperature is 98 afebrile. The heart rate was in the 110, it came down to 102; blood pressure is 150/63, respiratory rate was in the 30 and saturating 95% after he clam down and resting. HEAD AND NECK: Normal. No JVD. No thyromegaly. CHEST: Clear. Diminished breath sounds. LUNGS: There is mild wheeze on exertion. CARDIAC: First sound, second sound normal. Systolic ejection murmur on the aortic area. ABDOMEN: Soft, nontender. EXTREMITIES: Improving edema in lower extremity. NEUROLOGIC: Normal. LABORATORY DATA: Chest x-ray shows pulmonary vascular congestion. His sodium laboratory [place], sodium 131, potassium 4.4, chloride 92, bicarb 28, BUN 49, creatinine 1.3, blood sugar 159 and AST 78, ALT 77 and alkaline phosphatase 121. CBC shows white count 5.7, hemoglobin 11, hematocrit 22.4, platelets 172. IMPRESSION AND PLAN: 1. Acute congestive heart failure still remain congested, continue IV Lasix, oxygen, continue inhaled bronchodilators. We will discontinue DuoNeb, we will put the patient on Atrovent plus Xopenex, which has less tachycardia effect and we will add beta-jess metoprolol 12.5 mg b[address]i.d. Discussed with Dr. Bustos about the changes. 2. Severe pulmonary hypertension. We will consider right heart cath, may be we will get another limited study echocardiography. We will discuss with cardiology and we will continue current therapy, continue inhaled bronchodilator, continue IV steroids and IV Lasix, oxygen and plan to get the right side heart cath getting authorization for his medication for pulmonary hypertension or last , we will transfer him to another facility to get the medicine. At this time, we will continue current therapy. We will discuss with cardiology, Dr. Khan who saw the patient today about right-sided heart cath and discussed also with Dr. Bustos. 3. Diabetes. Continue insulin coverage. 4. The patient also has a history of depression, ADHD, continue Strattera, continue Lipitor, Lovenox 40 mg subcu for DVT, magnesium oxide, Neurontin, Protonix for GI prophylaxis. The patient also getting Revatio 20 mg p.o. q. 8 hours for his pulmonary hypertension. We will continue current therapy. Continue Wellbutrin 75 b.i.d. and we will follow up clinically. Arya Booker MD
--- NOTE | 2017-06-02 00:02 | CON ---
DATE: 06/01/2017 REFERRING PHYSICIAN: Arya Booker MD REASON FOR CONSULT: Severe pulmonary hypertension, short of breath, and chronic lung disease. HISTORY OF PRESENT ILLNESS: This is an 82-year-old gentleman with known history of severe pulmonary hypertension, coronary artery disease, diabetes, heart failure, history of aortic valve replacement in the past, coronary artery bypass graft surgery in the past, multiple admission with shortness of breath. He was in TRCU, on Revatio with Lasix and beta jess. His condition deteriorated, he became short of breath, was sent to ER, presently admitted to Intensive Care Unit. I had a long discussion with Dr. Booker about his care. The patient has severe pulmonary hypertension. Revatio and Lasix was not enough for his short of breath and was started on dobutamine. He understands risks, benefits of Revatio. Dr. Booker did talk to the patient's son in detail about benefit of dobutamine and risk. Thoroughly understood and agreed with the care. So presently on dobutamine. This morning, he became short of breath with exertion, seen by Dr. Dhruv Peñaloza, who is [employer]. Started on Solu-Medrol, Lasix was given, presently when I am seeing the patient, is much more comfortable, feels better, lying in the bed, no cough. No hemoptysis. No hematemesis. No hematuria. No diarrhea reported. PAST MEDICAL HISTORY: Severe pulmonary hypertension, hypertension, coronary artery disease, diabetes, coronary artery bypass surgery in the past, also had a valve replacement, which is aortic valve and bioprosthetic valve. FAMILY HISTORY: No significant cardio or pulmonary disease reported. 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 No active smoking or alcohol use. ALLERGIES: NONE KNOWN. MEDICATION: He is on atomoxetine 60 mg daily, Atrovent inhale q. 6 hours, also on dobutamine 2.5 mcg/kg/minute, Lasix 40 mg twice a day, Lipitor 40 mg daily, metoprolol tartarate 12.5 mg p.o. twice a day, Lovenox 20 mg daily, mag oxide 400 mg twice a day, Neurontin 300 mg daily, Protonix 40 mg daily, Revatio 20 mg daily, Solu-Medrol 40 mg twice a day, Wellbutrin 75 mg twice a day, Lopressor 25 mg q. 6 hours, and Xopenex is q. 4 hour p.r.n. REVIEW OF SYSTEMS: Headache. No rhinitis. Has some cough, short of breath. No chest pain. No nausea, vomiting, or diarrhea. He does have leg swelling. PHYSICAL EXAMINATION GENERAL: Lying in the bed, in no acute distress, but short of breath. VITAL SIGNS: Temperature is 98, heart rate 95, respiratory 25, blood pressure 124/53, pulse ox 99% on nasal cannula. HEENT: Moist mucus membrane. Carotid airway. Mallampati score is IV. NECK: Supple. No JVD. LUNGS: Has a few crackle. Prolonged expiratory phase. HEART: S1 and S2. ABDOMEN: Soft and nontender. No organomegaly. EXTREMITIES: No edema. NEUROLOGIC: Awake and alert, follows simple command. LABORATORY DATA: Shows hemoglobin 11.0, hematocrit 32.4, WBC 5.7, and platelet is 172. Sodium is 131, potassium 4.4, chloride 92, bicarbonate 28, BUN 49, creatinine is 1.3, glucose 164, calcium 9.6, AST 78, ALT 77, and alk phos is 131. Troponin 0.03, albumin is 3.8. Chest x-ray done this morning shows there is a cardiomegaly, moderate vascular interstitial congestion, finding is unchanged. IMPRESSION AND PLAN: Cardiomyopathy with severe pulmonary hypertension symptomatic, most likely is a cardiac asthma. History of hypertension, coronary artery disease, history of coronary artery bypass surgery, history of aortic bioprosthetic valve. Case discussed in detail with Dr. Booker. I agree with the present treatment. 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 Deep venous thrombosis prophylaxis, gastric prophylaxis. may continue on bronchodilator. Need to optimize pulmonary hypertension care. Once stable, may need oral or inhaled prostacyclin also, may benefit from endothelin inhibitor. We will speak to the pharmacy if we can get both as a outpatient or an inpatient. Follow up labs in the morning. Thank you and we will follow with you. Guru Bustos MD
--- NOTE | 2017-06-02 01:24 | CON ---
DATE: 06/01/2017 REASON FOR CONSULTATION: Abnormal LFTs. HISTORY OF PRESENT ILLNESS: This is an 82-year-old patient with a past medical history of severe pulmonary hypertension; coronary artery disease; diabetes mellitus; CABG; status post aortic valve replacement, bioprosthetic admitted with worsening of the shortness of breath. The patient was found to have slowly increasing liver enzymes. GI consult was requested to evaluate this. The patient denies any complaints of any abdominal pain. No fever. The patient is known to have gallstones before. PAST MEDICAL HISTORY: Other past medical history is significant as above. PAST SURGICAL HISTORY: As above, history of CABG and aortic valve replacement in 2006, left femoral neck fracture open reduction and internal fixation in the past. ALLERGIES: NO KNOWN DRUG ALLERGY. REVIEW OF SYSTEMS: Other systems reviewed are negative except as above. FAMILY HISTORY: Noncontributory. PHYSICAL EXAMINATION: GENERAL: The patient is lying on the bed, not in acute distress at the present time. The patient did have some respiratory difficulty yesterday, had increased difficulty yesterday, Revatio dose was increased. VITAL SIGNS: Blood pressure is now 150/63, pulse 102, O2 saturation 100%, respiratory rate 21. HEENT: Atraumatic and anicteric. NECK: Supple. HEART: S1 and S2 heard. LUNGS: Bilateral air entry present. Few scattered rhonchi noticed. ABDOMEN: Soft. There is no tenderness . EXTREMITIES: Trace edema bilaterally present. NEUROLOGIC: Alert and oriented. Moves all the extremities. LABORATORY DATA: Hemoglobin 11, hematocrit 32.4, WBC 5.7, platelets 172. Chemistry shows AST 78, ALT 77, alkaline phosphatase 131. The patient did have gallstones, but normal CBD. IMPRESSION AND RECOMMENDATIONS: This is an 82-year-old patient with a severe pulmonary hypertension, shortness of breath, has a mildly elevated alkaline phosphatase. He does have history of gallstones; however, the most likely cause of the increased mildly elevated LFTs in his case to be considered is either drug-induced or probably secondary to hepatic congestion from the severe pulmonary hypertension with right-sided pressure. We would recommend at this point: 1. Diabetic soft diet. 2. Close followup of the LFTs. 3. The patient had a hepatitis profile done in the past, which was negative. We will continue to closely monitor his case and suggest further management based on the clinical course. Karly Fraser MD [facility] # [id number] [place]
[2017-06-02] MEDS: Levalbuterol 1.25 MG/3 ML Inhal Soln UD IH SCH ×4 (01:30→20:34)
[2017-06-02] MEDS: Ipratropium 0.02% Inhal Soln (0.5 mg/2.5 ml) UD IH SCH ×4 (01:30→20:34)
--- NOTE | 2017-06-02 02:43 | HP ---
DATE: 05/31/2017 CHIEF COMPLAINT: The patient was seen in the emergency room for respiratory distress. HISTORY OF PRESENT ILLNESS: An 82-year-old male with significant past medical history of pulmonary hypertension, COPD, obstructive sleep apnea, bypass surgery, and aortic valve replacement, was recently discharged from Transitional Care Unit to the ER because of worsening breathing. The patient received Lasix that day in the morning with no improvement. He has been on nebulizer treatments, steroids p.o. and he is getting short of breath with minimal exertion. The patient is seen by equipment technician and technical clerk and discussion was then recommended to be transferred to the ER for further evaluation and treatment. Denied any fever, any chills, other than denied any chest pain. He did complain of leg edema, which some edema in the leg, the left more than right and also getting short of breath, his breathing getting worse with exertions, even getting out of bed to the bathroom. The patient was brought into the ER for further evaluations and treatment as planned by the equipment technician and the case was discussed also with his son who is a physician and agreed about the treatment and the plan. PAST MEDICAL HISTORY: As I mentioned above, severe pulmonary hypertension, COPD, and obstructive sleep apnea. He does have a history of coronary artery disease, bypass surgery more than 10 years ago, aortic valve replacement, and history of mitral valve repair. The patient also had recent stress test, which is normal and echo, which showed good LV function systolic and pulmonary hypertension in the 90s. It was reported more than that, but discussion was with the equipment technician, he mentioned it is in the 90 range. Also, the patient has diabetes, has high cholesterol, peripheral neuropathy, and has disk surgery in [facility] before done was severe radiculopathy, which resolved after surgery. He does still have some peripheral neuropathy. He has some urine incontinence, prostate enlargement prostate surgery. He also has depression. ALLERGIES: NO KNOWN ALLERGIES. SOCIAL HISTORY: He smoked in the past, but he quit more than 25 years. No drinking. No alcohol. No other drugs. He lives with his , supportive for him. REVIEW OF SYSTEMS: Significant for dyspnea on exertion, weakness generalized, use a walker; and some urine incontinence. He also has insomnia, but he recently is sleeping more than usual according to the ; depression, and generalized weakness. MEDICATIONS: He take multiple medications at home, sildenafil 20 mg p.o. daily, Niaspan 500 b.i.d., metformin 850 b.i.d., at home magnesium 400 b.i.d., Neurontin 300 p.o. daily, Advair, Ventolin, Nexium, vitamin D, Zyrtec, Wellbutrin, Lipitor, Strattera, and Flomax. PHYSICAL EXAMINATION: GENERAL: The patient was in the ER, lying in supine position, on 100% oxygen, he seems to be comfortable, and in no distress. VITAL SIGNS: As follows; temperature 98.8, heart rate 88, blood pressure 146/68, respiratory rate 22, and 100% saturating on mask. HEENT: Head and neck exam was normal. CARDIAC: First sound and second normal. Systolic murmur over the aortic area. CHEST: Clear lungs, but diminished breath sounds. ABDOMEN: Soft and nontender. EXTREMITIES: There is mild edema on both legs, left more than the right. NEUROLOGIC: The patient move all extremities. He is alert, awake, and oriented x3. LABORATORY DATA: Blood count; 4.9, hemoglobin 11.8, hematocrit 34.4, and platelets 168. His PT/INR 1.40 and PTT 29.6. Electrolytes; sodium 130, potassium 5.2, chloride 91, bicarb 26, BUN 44, creatinine 1.4, and blood sugar 239. His liver enzymes shows AST is 89, ALT is 72, and alkaline phosphatase is 173. Troponin 0.03 and proBNP is 5500. Chest x-ray shows congestive heart failure. IMPRESSION AND PLAN: This is an 82-year-old male with history of pulmonary hypertension, chronic obstructive pulmonary disease, and obstructive sleep apnea. Chest x-ray shows congestive heart failure, probably has a component of left-sided heart failure. Also the patient's systolic function is good, may be have also a component of congestive left-sided failure in addition to his pulmonary hypertension, which could be diastolic in nature. We will admit the patient as discussed with the equipment technician to ICU for IV Lasix, IV dobutamine, oxygen, inhaled bronchodilators, and monitor his electrolytes and pulmonary status. The patient does have severe pulmonary hypertension, planning is to get the patient's medication for pulmonary hypertension, antiprostaglandin. We will discuss with Dr. Akash about that and the plan was that we need to do right-sided cardiac cath. I will discuss with the technical clerk also. At this time, we will continue current therapy. We will follow up clinically. Repeat lab in the morning and I will see him on the Friday morning. Arya Booker MD
--- NOTE | 2017-06-02 03:41 | CON ---
DATE: 06/01/2017 LOCATION: The patient in ICU 128, bed 4. REASON FOR CONSULTATION: Shortness of breath, CHF, history of AVR, history of mitral valve repair, history of one-vessel CABG, COPD, pulmonary hypertension. HISTORY OF PRESENT ILLNESS: An 82-year-old male who was in Transitional Care Unit and he started complaining of shortness of breath, so he was brought to the emergency room for evaluation where he was found to have congestive heart failure, and the patient now admitted to the Intensive Care Unit. The patient denies chest pain or palpitations. He still complains shortness of breath. The patient previously had severe aortic stenosis, for which he had aortic valve replacement with bioprosthetic aortic valve and mitral valve was repaired with insertion of ring. The patient also had one-vessel coronary artery bypass, left radial to RCA. The patient known to have hypertension, diabetes, severe pulmonary hypertension with RVSP of 151 mmHg, hyperlipidemia, peripheral neuropathy, attention deficit syndrome. PAST MEDICAL HISTORY: As mentioned above, the patient has history of coronary artery bypass surgery, one-vessel, left radial to RCA; aortic valve replacement with bioprosthetic aortic valve; mitral valve repair with insertion of ring in 2006; diabetes; hypertension; hyperlipidemia; back surgery; laminectomy; peripheral neuropathy, attention deficiency syndrome; and the patient has recent history of CHF. PERSONAL HISTORY: There is no history of smoking or drinking. ALLERGIES: THE PATIENT DENIES ANY ALLERGIES. MEDICATIONS: At home were Revatio 20 mg p.o. daily; Neurontin 300 mg p.o. daily; Advair Diskus one puff b.i.d.; Nexium 40 mg daily; Wellbutrin SR 75 t.i.d.; Strattera 60 mg p.o. daily; magnesium oxide 400 b.i.d.; niacin 500 b.i.d.; Lipitor 40 daily; metformin 850 b.i.d. REVIEW OF SYSTEMS: All the system reviewed, positive mentioned in the history, others were negative. THE PATIENT'S CARDIAC WORKUP: The patient had a stress test on 05/06/2017 which showed normal SPECT myocardial perfusion study with normal ventricular ejection fraction of 73%. Echo on 05/06/2017 which showed right ventricular systolic pressure of 151 mmHg, consistent with severe pulmonary hypertension, left ventricle size was normal, mild concentric left ventricular hypertrophy, left ventricular ejection fraction of 65%, [id number] aortic regurgitation, [id number] tricuspid regurge with an RVSP of 151 mmHg, [id number] aortic regurgitation, bioprosthetic aortic valve prosthesis in place, mild pulmonic valve regurgitation, IVC dilated, flattening of intraventricular septum consistent with right ventricular volume and pressure overload. PHYSICAL EXAMINATION: VITAL SIGNS: Blood pressure 122/62, respirations 23, pulse 90, the patient is afebrile. HEENT: Head: Normocephalic. Eyes: Pupils normal, conjunctivae normal. NECK: JVP is slightly elevated. LUNGS: Basilar rales and also expiratory wheezing present. CARDIOVASCULAR: S1, S2, systolic murmur. ABDOMEN: Soft. No tenderness. No organomegaly. EXTREMITIES: No clubbing. No cyanosis. LABORATORY DATA: Shows WBC of 5.7, hemoglobin 11.0, hematocrit 32.4, platelet 172. Sodium 131, potassium 4.4, BUN 49, creatinine 1.3, random sugar 313. Troponin x2 negative. AST 78, ALT 77, alkaline phosphatase 131, protein 6.9, albumin 3.8, prothrombin time 15.4, INR 1.40, PTT 29.6. EKG showed sinus rhythm, possible left atrial enlargement, right ventricle hypertrophy. Chest x-ray, cardiomegaly with moderate vascular interstitial congestion. DIAGNOSES: Congestive heart failure; exacerbation of chronic obstructive pulmonary disease; severe pulmonary hypertension; valvular heart disease with aortic valve replacement, bioprosthetic aortic valve; mitral valve repair with insertion of ring; one-vessel coronary artery bypass, radial artery to right coronary artery; diabetes mellitus; hypertension; adult deficit attention deficiency syndrome; congestive heart failure on the basis of severe pulmonary hypertension and valvular heart disease. The patient is on dobutamine drip, Lasix 40 IV q. 12 hours, Lipitor 40 daily, metoprolol 12.5 mg p.o. stat was given. We will put metoprolol 12.5 mg p.o. b.i.d., Lovenox 40 mg subcu daily, magnesium oxide 400 mg p.o. b.i.d., Neurontin 300 mg p.o. daily, Protonix 40 IV daily, Revatio 20 mg p.o. q. 8 hours, methylprednisolone 40 mg IV q. 12 hours, Wellbutrin 75 mg b.i.d., Xopenex nebulizer therapy. We will monitor intake and output, and we will follow the followup labs and followup chest x-ray, and we will follow with you. Guru Khan MD
[2017-06-02] MEDS: Sildenafil 20 MG TAB PO SCH ×3 (05:08→21:46)
[2017-06-02 05:36] LABS: GRAN # 3.51 (1.4-6.5); GRAN % 88.2 % (50.0-68.0); HEMOGLOBIN 10.5 g/dL (14.0-18.0); LYMPH # 0.3 (1.2-3.4); LYMPH % 6.5 % (22.0-35.0); MEAN CELL VOLUME 92.7 fl (80.0-105.0); MEAN CORPUSCULAR HEMOGLOBIN 30.7 pg (25.0-35.0); MEAN CORPUSCULAR HGB CONC 33.1 g/dl (31.0-37.0); MEAN PLATELET VOLUME 11.1 fl (7.0-11.0); MONO # 0.2 (0.1-0.6); MONO % 5.3 % (1.0-6.0); RBC 3.42 10^6/uL (3.5-6.1)
[2017-06-02 06:20] LABS: ALB/GLOB RATIO 1.3 (1.1-1.8); ALBUMIN 3.7 g/dL (3.0-4.8); ALT/SGPT 61 U/L (7-56); AST/SGOT 47 U/L (17-59); B-TYPE NATRIURETIC PEPTIDE 6840 pg/mL (0-450); BLOOD UREA NITROGEN 48 mg/dL (7-21); CALCIUM 9.9 mg/dL (8.4-10.5); GFR AFRICAN-AMERICAN > 60; GFR NON-AFRICAN AMERICAN 53
[2017-06-02] MEDS: Insulin Reg-LOW-Coverage SC SCH ×4 (08:43→22:00)
--- NOTE | 2017-06-02 08:56 | RAD ---
HISTORY: Compare to see improvement of CHF. COMPARISON: 06/01/2017 FINDINGS: LUNGS: No active pulmonary disease. PLEURA: Minimal blunting of left costophrenic angle may reflect small pleural effusion or pneumothorax. No change. CARDIOVASCULAR: Mitral valve replacement. Sternotomy wires. OSSEOUS STRUCTURES: No significant abnormalities. VISUALIZED UPPER ABDOMEN: Normal. OTHER FINDINGS: None. IMPRESSION: Possible small left pleural effusion. No infiltrate
[2017-06-02] MEDS: MethylPREDNISolone 40 mg Vial IVP SCH ×3 (09:46→22:00)
[2017-06-02] MEDS: Magnesium Oxide 400 mg Tab UD PO SCH ×2 (09:47→18:56)
--- NOTE | 2017-06-02 10:43 | CP.PCM.PN ---
Subjective - Date & Time of Evaluation Date of Evaluation: 06/02/17 Time of Evaluation: 07:35 - Subjective Subjective: Pt seen and examined, complaints of dyspnea on exertion, denies fever, chills, cough, chest pain. Objective - Vital Signs/Intake and Output Vital Signs (last 24 hours): Temp Pulse Resp BP Pulse Ox 98 F 95 H 23 144/60 81 L 06/02/17 05:00 06/02/17 09:46 06/02/17 06:10 06/02/17 09:46 06/02/17 06:10 Intake and Output: 06/02/17 06/02/17 06:59 18:59 Intake Total 60 Balance 60 - Medications Medications: Current Medications Atorvastatin Calcium (Lipitor) 40 mg PO DAILY [facility] Last Admin: 06/02/17 09:48 Dose: 40 mg Bupropion HCl (Wellbutrin) 75 mg PO BID [facility] Last Admin: 06/02/17 09:51 Dose: 75 mg Enoxaparin Sodium (Lovenox) 40 mg SC DAILY [facility] PRN Reason: Protocol Last Admin: 06/01/17 13:06 Dose: 40 mg Furosemide (Lasix) 40 mg IVP Q12 [facility] Last Admin: 06/01/17 21:17 Dose: 40 mg Gabapentin (Neurontin) 300 mg PO DAILY [facility] PRN Reason: Protocol Last Admin: 06/02/17 09:47 Dose: 300 mg Dobutamine HCl/Dextrose (Dobutamine/Dextrose 5% 500mg/250ml) 500 mg in 250 mls @ 5.64 mls/hr IV .Q24H PRN; 2.5 MCG/KG/MIN PRN Reason: Pulmonary Hypertension. Last Admin: 06/01/17 04:45 Dose: 5.64 mls/hr Insulin Human Regular (Humulin R Low) 0 units SC ACHS [facility] PRN Reason: Protocol Last Admin: 06/02/17 08:43 Dose: 1 units Ipratropium [place] (Atrovent) 0.5 mg IH [id number] [facility] Last Admin: 06/02/17 09:21 Dose: 0.5 mg Ipratropium [place] (Atrovent) 0.5 mg IH [id number] PRN PRN Reason: Shortness of Breath Levalbuterol HCl (Xopenex) 1.25 mg IH [id number] [facility] Last Admin: 06/02/17 09:21 Dose: 1.25 mg Levalbuterol HCl (Xopenex) 0.63 mg IH [id number] PRN PRN Reason: Shortness of Breath Magnesium Oxide (Mag-Ox) 400 mg PO BID [facility] Last Admin: 06/02/17 09:47 Dose: 400 mg Methylprednisolone (Solu-Medrol) 40 mg IVP Q12 [facility] Last Admin: 06/02/17 09:46 Dose: 40 mg Metoprolol Tartrate (Lopressor) 12.5 mg PO Q12 [facility] Last Admin: 06/02/17 09:46 Dose: 12.5 mg Atomoxetine Hcl [ (Strattera] 60 Mg) 60 mg PO DAILY [facility] Pantoprazole Sodium (Protonix Inj) 40 mg IVP DAILY [facility] Last Admin: 06/02/17 09:46 Dose: 40 mg Sildenafil Citrate (Revatio) 20 mg PO Q8 [facility] Last Admin: 06/02/17 05:08 Dose: 20 mg - Labs Labs: 06/02/17 05:00 06/02/17 05:00 PT 15.4 SECONDS (9.4-12.5) H 05/31/17 19:20 INR 1.40 (0.93-1.08) H 05/31/17 19:20 APTT 29.6 Seconds (25.1-36.5) 05/31/17 19:20 - Constitutional Appears: Well, Non-toxic, No Acute Distress - Head Exam Head Exam: NORMAL INSPECTION - Eye Exam Eye Exam: Normal appearance - ENT Exam ENT Exam: Mucous Membranes Moist - Respiratory Exam Respiratory Exam: NORMAL BREATHING PATTERN Additional comments: bibasilar crackles - Cardiovascular Exam Cardiovascular Exam: REGULAR RHYTHM, +S1, +S2 - GI/Abdominal Exam GI & Abdominal Exam: Soft, Normal Bowel Sounds - Extremities Exam Extremities Exam: Full ROM - Neurological Exam Neurological Exam: Alert, Awake Assessment and Plan - Assessment and Plan (Free Text) Assessment: 82yo male with PMhx of severe pulm HTN a/w SOB SOB Hx of Severe Pulm HTN COPD Recommend: - supp o2 as needed - duonebs PRN, Pulmicort - Solumedrol IV - IV lasix - Cont with Revatio - Cardiac cath today - NPO for cardiac cath - GI ppx - DVT ppx - titrate of Dobutamine - OOB to chair - NPO - monitor in MICU
[2017-06-02] MEDS: Enoxaparin 40 mg Syringe SC SCH (12:03)
--- NOTE | 2017-06-02 12:17 | PN ---
DATE: 06/02/2017 REASON FOR CONSULTATION AND FOLLOWUP: Shortness of breath, congestive heart failure, history of AVR, history of mitral valve repair, one-vessel CABG, and pulmonary hypertension. SUBJECTIVE: The patient denies any chest pain, but says on walking, gets very short of breath. PHYSICAL EXAMINATION: VITAL SIGNS: As follows; temperature afebrile,heart rate is 95, blood pressure 144/60. HEENT: PERRLA. Extraocular muscles intact. NECK: Supple. No carotid bruit or thyromegaly. CHEST: Clear to auscultation. HEART: S1 and S2 regular. ABDOMEN: Soft. EXTREMITIES: Clubbing, cyanosis negative. LABORATORY DATA: Blood workup as follows; WBC 4, hemoglobin 10.6, hematocrit 31.7, platelet count 158. Chemistry shows sodium 131, potassium 4.0, chloride 91, carbon dioxide 30, anion gap of 15. IMPRESSION: Severe pulmonary hypertension, on Dobutrex 2.5 mcg. Last echo right ventricular systolic pressure 151. Coronary artery disease, status post 1-vessel coronary artery bypass graft, bioprosthetic aortic valve replacement and mitral valve repair in 2008, diabetes, hypertension, hyperlipidemia. Discussed with Pulmonary. Discussed with Dr. Booker, wanted right heart catheterization. We will do right heart catheterization to assess for management. Currently, the patient is on Revatio. We will hold Dobutrex for now during catheterization. Dobutrex is held at 7 o'clock and we will do the cardiac catheterization and after catheterization, will resume the Dobutrex. Thank you Dr. Booker for providing us the opportunity in taking care of the patient, Emory Arboleda. Guru Sosa MD CC: Arya Booker MD
[2017-06-02] MEDS ORDERED: Lidocaine 2% Inj (20ml) ONE (16:47)
[2017-06-02] MEDS ORDERED: Midazolam 2 MG/2 ML VIAL ONE (17:05)
[2017-06-02] MEDS ORDERED: Iodixanol 320 MG/ML 100 ML BOTTLE IV ONE (17:11)
--- NOTE | 2017-06-02 18:06 | CARD ---
APPROVED REPORT Procedure(s) performed: RHC HISTORY The patient is a 82 year-old male with a history of : Hx of one vessel CABG, Bioprosthetic AVR,S/p MV repair and one vessel CABG ( left radial to RCA),multiple admission with SOB, severe pulmonary HTN RVSP 151 by Echo.. INDICATION The indication(s) include : Severe pulmonary HTN. CASE TECHNIQUE A Right Heart Catheterization was performed with a 7 Fr. Fabius-Jim catheter and pressure were recorded. A 7 sheath was inserted into the right femoral vein without difficulty. Coronary angiography was performed using coronary diagnostic catheters. Cardiac outputs were obtained by the Thermal Dilution method. Closure device was deployed with a 7 Fr Mynx without any complications. The patient tolerated the procedure well and there were no complications associated with the procedure. Right Heart Cath Findings The Right Atrial Pressure is 18-20 mmHg. The Right Ventricular Pressure is 103/25 mmHg. The Pulmonary Artery Pressure is 103/48 mmHg. with a mean of 65 The Pulmonary Catheter Wedge Pressure is 30-32 mmHg. PVR 10.6 Wood units. The cardiac output and index were assessed using thermo dilution. The Cardiac Output is 3.10 L/min. The Cardiac index is 1.70 L/min/m2. Conclusion Severe pulmonary HTN ( pt was off Dobutrex for 12 hours before cath) RA-18-20: RV-103/25: PA 103/48 with a mean pA-65: PCW-30-32:,; CO-3.1: CI-1.67; PVR-10.6 Starkey unit Recommendations Aggressive treatment for pulmonary HTN. CC; Drs. Booker/ Akash
[2017-06-02] MEDS: DOBUTamine 500mg/250ml D5W 500 MG/250 ML BAG IV PRN (18:51)
[2017-06-03] MEDS: Ipratropium 0.02% Inhal Soln (0.5 mg/2.5 ml) UD IH SCH ×4 (01:30→20:07)
[2017-06-03] MEDS: Levalbuterol 1.25 MG/3 ML Inhal Soln UD IH SCH ×4 (01:30→20:11)
--- NOTE | 2017-06-03 02:06 | PN ---
DATE: 06/02/2017 SUBJECTIVE: This patient was seen and evaluated earlier. The patient had cardiac catheterization today. Denies any abdominal pain. PHYSICAL EXAMINATION VITAL SIGNS: Temperature afebrile, pulse 84, blood pressure 118/54, respirations 13 and O2 saturations 97%. HEENT: Atraumatic and anicteric. NECK: Supple. HEART: S1 and S2 heard. There is systolic murmur present. LUNGS: Bilateral air entry present. ABDOMEN: Soft. No tenderness. EXTREMITIES: No cyanosis, no clubbing. LABORATORY DATA: Hemoglobin 10.5, hematocrit 31.7, WBC 4.0 and platelet 158. LFTs are essentially unremarkable except ALT is mild elevated at 61. BNP is 6840 elevated. IMPRESSION: This is an 82-year-old patient with severe pulmonary hypertension, history of coronary artery bypass graft, status post aortic valve replacement with bioprosthetic aortic valve, status post mitral valve repair done, and admitted with worsening of the symptoms. The patient has significantly elevated right ventricular systolic pressure of 151 by echo. He had a cardiac cath done today and the patient was found to have pulmonary artery pressure of 103/48 suggestive of severe pulmonary hypertension, so recommended aggressive management of the pulmonary hypertension. The patient has elevated LFTs, which is showing downward trend most likely the cause is related to hepatic congestion from right ventricular pressure. We will continue to closely followup her care. Further management based on primarily management of the pulmonary hypertension, which can reduced the hepatic congestion. We will continue to closely followup her care. Thank you very much for allowing me to participate in the care of the patient. Karly Fraser MD
--- NOTE | 2017-06-03 02:11 | PN ---
DATE: 06/02/2017 REFERRING PHYSICIAN: Dr. Booker. 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 No nausea, no vomiting, no diarrhea. No leg pain or leg swelling. PHYSICAL EXAMINATION GENERAL: In no acute distress. VITAL SIGNS: Temp is 98, heart rate is 84, respiratory rate is 20, blood pressure is 118/54, pulse ox is 97% on 4 L nasal cannula. HEENT: Moist mucous membranes. Crowded airway. Mallampati score is 4 NECK: Supple. No JVD. LUNGS: Fair airflow with rhonchi. ABDOMEN: Soft and nontender. No organomegaly. EXTREMITIES: There is no edema. NEUROLOGIC: Awake and alert. Follow simple commands. MEDICATIONS: He is on Strattera 60 mg daily, Atrovent inhaled q. 6 hours, dobutamine will be started again, insulin coverage, Lasix 40 mg q 12 hours, Lipitor 40 mg daily, metoprolol tartrate 25 mg twice a day, Lovenox 40 mg daily, magnesium oxide 400 mg twice a day, gabapentin 300 mg daily, Protonix 40 mg daily, Revatio 20 mg q 8 hours, Solu-Medrol 40 mg q. 12 hours, Wellbutrin 75 mg twice a day, Xopenex 1.25 mg q 6 hours. LABORATORY DATA: Shows hemoglobin 10.5, hematocrit 31.7, WBC 4.0, platelets 158, INR 1.40, sodium 135, potassium 4.8, chloride 91, bicarbonate 30, BUN 48, creatinine 1.3, glucose 194, calcium 9.9, AST 47, ALT 61, alk phos is 125, proBNP is 6840, albumin is 3.7, IMPRESSION AND PLAN: Cardiomyopathy with severe pulmonary hypertension, probably cardiac asthma, hypertension, coronary artery disease, history of coronary bypass surgery, history of aortic bioprosthetic valve. I spoke to nursing staff. Patient being restarted on dobutamine. Continue diuretics. Continue pulmonary vasodilators. We will decrease Solu-Medrol and continue inhaled bronchodilator. Follow up labs in the morning. Critical care time was more than 35 minutes. We will follow with you. Guru Bustos MD [facility] # [id number]
[2017-06-03 05:47] LABS: GRAN # 5.13 (1.4-6.5); GRAN % 88.1 % (50.0-68.0); HEMOGLOBIN 10.5 g/dL (14.0-18.0); LYMPH # 0.3 (1.2-3.4); LYMPH % 5.5 % (22.0-35.0); MEAN CELL VOLUME 93.5 fl (80.0-105.0); MEAN CORPUSCULAR HEMOGLOBIN 31.1 pg (25.0-35.0); MEAN CORPUSCULAR HGB CONC 33.2 g/dl (31.0-37.0); MEAN PLATELET VOLUME 11.6 fl (7.0-11.0); MONO # 0.4 (0.1-0.6); MONO % 6.4 % (1.0-6.0); RBC 3.38 10^6/uL (3.5-6.1); RED CELL DISTRIBUTION WIDTH 14.1 % (11.5-14.5); WHITE BLOOD COUNT 5.8 10^3/ul (4.5-11.0)
[2017-06-03] MEDS: Sildenafil 20 MG TAB PO SCH ×3 (06:17→22:38)
[2017-06-03 06:26] LABS: ALB/GLOB RATIO 1.2 (1.1-1.8); ALBUMIN 3.3 g/dL (3.0-4.8); ALT/SGPT 59 U/L (7-56); AST/SGOT 39 U/L (17-59); BLOOD UREA NITROGEN 47 mg/dL (7-21); CALCIUM 9.3 mg/dL (8.4-10.5); GFR AFRICAN-AMERICAN > 60; GFR NON-AFRICAN AMERICAN 58
[2017-06-03] MEDS: Insulin Reg-LOW-Coverage SC SCH (08:09)
[2017-06-03] MEDS: MethylPREDNISolone 40 mg Vial IVP SCH ×2 (09:45→22:43)
[2017-06-03] MEDS: Enoxaparin 40 mg Syringe SC SCH (09:45)
[2017-06-03] MEDS: Insulin Detemir 100 units/ml Vial (Levemir) SC SCH ×2 (09:47→17:13)
[2017-06-03] MEDS: Magnesium Oxide 400 mg Tab UD PO SCH ×2 (09:47→17:11)
--- NOTE | 2017-06-03 09:58 | CP.CCUPN ---
<Oren Corea - Last Filed: 06/03/17 09:53> CCU Subjective - Physician Review Subjective (Free Text): Pt seen and examined at bedside. Pt with no acute events overnight. Patient underwent right heart cath yesterday. Pt denies any CP, SOB, nausea, vomiting, diarrhea, chills. CCU Objective - Vital Signs / Intake & Output Vital Signs (Last 4 hours): Vital Signs Temp Pulse Resp BP Pulse Ox 06/03/17 08:30 90 18 108/58 L 97 06/03/17 08:20 88 26 H 97 06/03/17 08:10 86 15 94 L 06/03/17 08:00 97.7 F 85 25 H 116/46 L 98 06/03/17 07:50 87 96 06/03/17 07:40 86 19 96 06/03/17 07:30 88 26 H 116/49 L 96 06/03/17 07:20 86 18 96 06/03/17 07:10 89 17 92 L 06/03/17 07:00 80 30 H 124/48 L 99 06/03/17 06:50 79 79 H 98 06/03/17 06:40 78 27 H 99 06/03/17 06:30 78 77 H 131/56 L 99 06/03/17 06:20 78 75 H 98 06/03/17 06:10 78 98 06/03/17 06:00 81 78 H 119/53 L 98 Intake and Output (Last 8hrs): Intake & Output 06/02/17 06/03/17 06/03/17 22:59 06:59 14:59 Intake Total 120 660 Output Total 250 650 Balance -130 10 Intake: IV 60 Right Forearm 60 Oral 120 600 Output: Urine 250 650 Urine, Voided 250 650 Emesis 0 Oral Regurgitation 0 Other 0 Other: # Voids Urine, Voided 1 1 # Bowel Movements 1 0 - Physical Exam Head: Positive for: Atraumatic, Normocephalic Pupils: Positive for: PERRL Extroacular Muscles: Positive for: EOMI Conjunctiva: Positive for: Normal Mouth: Positive for: Moist Mucous Membranes Respiratory/Chest: Positive for: Clear to Auscultation, Decreased Breath Sounds. Negative for: Respiratory Distress, Accessory Muscle Use, Rales, Rhonchi Cardiovascular: Positive for: Regular Rate and Rhythm, Normal S1, S2. Negative for: Murmurs Abdomen: Positive for: Normal Bowel Sounds. Negative for: Tenderness, Distention, Peritoneal Signs Upper Extremity: Positive for: Normal Inspection. Negative for: Cyanosis, Edema Lower Extremity: Positive for: Normal Inspection. Negative for: Edema, CALF TENDERNESS, Preeti's Sign Neurological: Positive for: GCS=15, CN II-XII Intact, Speech Normal Skin: Positive for: Warm, Dry, Normal Color. Negative for: Rashes Psychiatric: Positive for: Alert, Oriented x 3, Normal Insight, Normal Concentration - Medications Active Medications: Active Medications Generic Name Dose Route Start Last Admin Trade Name Freq PRN Reason Stop Dose Admin Atorvastatin Calcium 40 mg 06/01/17 10:00 06/02/17 09:48 Lipitor PO 40 mg DAILY BAKARI Administration Bupropion HCl 75 mg 06/01/17 10:00 06/02/17 18:59 Wellbutrin PO 75 mg BID BAKARI Administration Enoxaparin Sodium 40 mg 06/01/17 12:30 06/02/17 12:03 Lovenox SC Not Given DAILY BAKARI Protocol Furosemide 40 mg 05/31/17 22:00 06/02/17 21:45 Lasix IVP 40 mg Q12 BAKARI Administration Gabapentin 300 mg 06/01/17 10:00 06/02/17 09:47 Neurontin PO 300 mg DAILY BAKARI Administration Protocol Dobutamine HCl/Dextrose 500 mg in 250 mls @ 5.613 mls/hr 06/02/17 18:23 06/02 18:51 Dobutamine/Dextrose 5% 500mg/250ml IV 2.5 mcg/kg/min .Q24H PRN 5.613 mls/hr TITRATE PER PROTOCOL Administration Protocol 2.5 MCG/KG/MIN Insulin Detemir 10 unit 06/03/17 10:00 Levemir SC BID BAKARI Ipratropium [place] 0.5 mg 06/01/17 14:00 06/03/17 07:12 Atrovent IH 0.5 mg [id number] BAKARI Administration Ipratropium [place] 0.5 mg 06/01/17 16:00 Atrovent IH [id number] PRN Shortness of Breath Levalbuterol HCl 1.25 mg 06/01/17 12:40 06/03/17 07:12 Xopenex IH 1.25 mg [id number] BAKARI Administration Levalbuterol HCl 0.63 mg 06/01/17 12:42 Xopenex IH [id number] PRN Shortness of Breath Magnesium Oxide 400 mg 06/01/17 10:00 06/02/17 18:56 Mag-Ox PO 400 mg BID BAKARI Administration Methylprednisolone 20 mg 06/02/17 22:00 06/02/17 22:00 Solu-Medrol IVP 20 mg Q12 BAKARI Administration Metoprolol Tartrate 12.5 mg 06/01/17 22:00 06/02/17 21:46 Lopressor PO 12.5 mg Q12 BAKARI Administration Atomoxetine Hcl [ 60 mg 06/01/17 10:00 Strattera] 60 Mg PO DAILY BAKARI Pantoprazole Sodium 40 mg 06/01/17 10:00 06/02/17 09:46 Protonix Inj IVP 40 mg DAILY BAKARI Administration Sildenafil Citrate 20 mg 06/01/17 14:00 06/03/17 06:17 Revatio PO 20 mg Q8 BAKARI Administration - Patient Studies Lab Studies: Lab Studies 06/03/17 06/03/17 06/03/17 Range/Units 07:20 05:15 05:15 WBC 5.8 D (4.5-11.0) 10^3/ul RBC 3.38 L (3.5-6.1) 10^6/uL Hgb 10.5 L (14.0-18.0) g/dL Hct 31.6 L (42.0-52.0) % MCV 93.5 (80.0-105.0) fl MCH 31.1 (25.0-35.0) pg MCHC 33.2 (31.0-37.0) g/dl RDW 14.1 (11.5-14.5) % Plt Count 152 (120.0-450.0) 10^3/uL MPV 11.6 H (7.0-11.0) fl Gran % 88.1 H (50.0-68.0) % Lymph % (Auto) 5.5 L (22.0-35.0) % Mcnairy % (Auto) 6.4 H (1.0-6.0) % Eos % (Auto) 0.0 L (1.5-5.0) % Baso % (Auto) 0.0 (0.0-3.0) % Gran # 5.13 (1.4-6.5) Lymph # 0.3 L (1.2-3.4) Mcnairy # 0.4 (0.1-0.6) Eos # 0.0 (0.0-0.7) Baso # 0.00 (0.0-2.0) K/mm3 Sodium 132 (132-148) mmol/L Potassium 4.7 (3.6-5.0) mmol/L Chloride 93 L (98-107) mmol/L Carbon Dioxide 29 (21-33) mmol/L Anion Gap 15 (10-20) BUN 47 H (7-21) mg/dL Creatinine 1.2 (0.8-1.5) mg/dl Est GFR ( Amer) > 60 Est GFR (Non-Af Amer) 58 POC Glucose (mg/dL) 325 H (65-110) mg/dL Random Glucose 344 H* D (70-110) mg/dL Calcium 9.3 (8.4-10.5) mg/dL Total Bilirubin 0.9 (0.2-1.3) mg/dL AST 39 (17-59) U/L ALT 59 H (7-56) U/L Alkaline Phosphatase 104 (38-126) U/L Total Protein 6.0 (5.8-8.3) g/dL Albumin 3.3 (3.0-4.8) g/dL Globulin 2.7 gm/dL Albumin/Globulin Ratio 1.2 (1.1-1.8) 06/02/17 06/02/17 06/02/17 Range/Units 21:30 16:17 11:23 WBC (4.5-11.0) 10^3/ul RBC (3.5-6.1) 10^6/uL Hgb (14.0-18.0) g/dL Hct (42.0-52.0) % MCV (80.0-105.0) fl MCH (25.0-35.0) pg MCHC (31.0-37.0) g/dl RDW (11.5-14.5) % Plt Count (120.0-450.0) 10^3/uL MPV (7.0-11.0) fl Gran % (50.0-68.0) % Lymph % (Auto) (22.0-35.0) % Mcnairy % (Auto) (1.0-6.0) % Eos % (Auto) (1.5-5.0) % Baso % (Auto) (0.0-3.0) % Gran # (1.4-6.5) Lymph # (1.2-3.4) Mcnairy # (0.1-0.6) Eos # (0.0-0.7) Baso # (0.0-2.0) K/mm3 Sodium (132-148) mmol/L Potassium (3.6-5.0) mmol/L Chloride (98-107) mmol/L Carbon Dioxide (21-33) mmol/L Anion Gap (10-20) BUN (7-21) mg/dL Creatinine (0.8-1.5) mg/dl Est GFR ( Amer) Est GFR (Non-Af Amer) POC Glucose (mg/dL) 238 H 199 H 206 H (65-110) mg/dL Random Glucose (70-110) mg/dL Calcium (8.4-10.5) mg/dL Total Bilirubin (0.2-1.3) mg/dL AST (17-59) U/L ALT (7-56) U/L Alkaline Phosphatase (38-126) U/L Total Protein (5.8-8.3) g/dL Albumin (3.0-4.8) g/dL Globulin gm/dL Albumin/Globulin Ratio (1.1-1.8) 06/02/17 Range/Units 07:24 WBC (4.5-11.0) 10^3/ul RBC (3.5-6.1) 10^6/uL Hgb (14.0-18.0) g/dL Hct (42.0-52.0) % MCV (80.0-105.0) fl MCH (25.0-35.0) pg MCHC (31.0-37.0) g/dl RDW (11.5-14.5) % Plt Count (120.0-450.0) 10^3/uL MPV (7.0-11.0) fl Gran % (50.0-68.0) % Lymph % (Auto) (22.0-35.0) % Mcnairy % (Auto) (1.0-6.0) % Eos % (Auto) (1.5-5.0) % Baso % (Auto) (0.0-3.0) % Gran # (1.4-6.5) Lymph # (1.2-3.4) Mcnairy # (0.1-0.6) Eos # (0.0-0.7) Baso # (0.0-2.0) K/mm3 Sodium (132-148) mmol/L Potassium (3.6-5.0) mmol/L Chloride (98-107) mmol/L Carbon Dioxide (21-33) mmol/L Anion Gap (10-20) BUN (7-21) mg/dL Creatinine (0.8-1.5) mg/dl Est GFR ( Amer) Est GFR (Non-Af Amer) POC Glucose (mg/dL) 187 H (65-110) mg/dL Random Glucose (70-110) mg/dL Calcium (8.4-10.5) mg/dL Total Bilirubin (0.2-1.3) mg/dL AST (17-59) U/L ALT (7-56) U/L Alkaline Phosphatase (38-126) U/L Total Protein (5.8-8.3) g/dL Albumin (3.0-4.8) g/dL Globulin gm/dL Albumin/Globulin Ratio (1.1-1.8) Laboratory Results - last 24 hr 06/02/17 06/02/17 06/02/17 07:24 11:23 16:17 WBC RBC Hgb Hct MCV MCH MCHC RDW Plt Count MPV Gran % Lymph % (Auto) Mcnairy % (Auto) Eos % (Auto) Baso % (Auto) Gran # Lymph # Mcnairy # Eos # Baso # Sodium Potassium Chloride Carbon Dioxide Anion Gap BUN Creatinine Est GFR ( Amer) Est GFR (Non-Af Amer) POC Glucose (mg/dL) 187 H 206 H 199 H Random Glucose Calcium Total Bilirubin AST ALT Alkaline Phosphatase Total Protein Albumin Globulin Albumin/Globulin Ratio 06/02/17 06/03/17 06/03/17 21:30 05:15 05:15 WBC 5.8 D RBC 3.38 L Hgb 10.5 L Hct 31.6 L MCV 93.5 MCH 31.1 MCHC 33.2 RDW 14.1 Plt Count 152 MPV 11.6 H Gran % 88.1 H Lymph % (Auto) 5.5 L Mcnairy % (Auto) 6.4 H Eos % (Auto) 0.0 L Baso % (Auto) 0.0 Gran # 5.13 Lymph # 0.3 L Mcnairy # 0.4 Eos # 0.0 Baso # 0.00 Sodium 132 Potassium 4.7 Chloride 93 L Carbon Dioxide 29 Anion Gap 15 BUN 47 H Creatinine 1.2 Est GFR ( Amer) > 60 Est GFR (Non-Af Amer) 58 POC Glucose (mg/dL) 238 H Random Glucose 344 H* D Calcium 9.3 Total Bilirubin 0.9 AST 39 ALT 59 H Alkaline Phosphatase 104 Total Protein 6.0 Albumin 3.3 Globulin 2.7 Albumin/Globulin Ratio 1.2 06/03/17 07:20 WBC RBC Hgb Hct MCV MCH MCHC RDW Plt Count MPV Gran % Lymph % (Auto) Mcnairy % (Auto) Eos % (Auto) Baso % (Auto) Gran # Lymph # Mcnairy # Eos # Baso # Sodium Potassium Chloride Carbon Dioxide Anion Gap BUN Creatinine Est GFR ( Amer) Est GFR (Non-Af Amer) POC Glucose (mg/dL) 325 H Random Glucose Calcium Total Bilirubin AST ALT Alkaline Phosphatase Total Protein Albumin Globulin Albumin/Globulin Ratio Fingerstick Blood Sugar Results: 325 Critical Care Progress Note - Nutrition Nutrition: Nutrition Category Date Time Status Regular Diet [DIET] Diets 06/02/17 Dinner Ordered Assessment/Plan - Assessment and Plan (Free Text) Plan: 82 y/o M with PMH of pulmonary htn, CHF s/p CABG and aortic valve replacement presents with dyspnea. Patient received right heart catheterization yesterday which demonstrated severe pulmonary hypertension. Pt stable at this time and remains on dobutamine. Patient will be transferred to telemetry later today. Neuro: AAO x3 Stable, no deficits Cardio: Right heart cath demonstrating severe pulm htn Remains on dobutamine Continue Lopressor, lipitor, lasix Cardiology following, Dr. Sosa Hemodynamically stable Maintain MAP > 65 Pulm: Severe pulm htn Continue Revatio, atrovent, and xopenex Continue Lasix Taper steroids Pulm following, Dr. Akash following GI: Protonix for GI PPX Regular diet Renal: Maintain euvolemia Replenish electrolytes as needed Endocrine: ISS Maintain euglycemia ID: Afebrile, no leukocytosis Maintain normothermia DVT PPX: Lovenox Anmol, PGY-2 <Edvin Gomez - Last Filed: 06/03/17 11:23> CCU Objective - Vital Signs / Intake & Output Vital Signs (Last 4 hours): Vital Signs Temp Pulse Resp BP Pulse Ox 06/03/17 09:49 95/49 L 06/03/17 09:45 101/42 L 06/03/17 08:30 90 18 108/58 L 97 06/03/17 08:20 88 26 H 97 06/03/17 08:10 86 15 94 L 06/03/17 08:00 97.7 F 85 25 H 116/46 L 98 06/03/17 07:50 87 96 06/03/17 07:40 86 19 96 06/03/17 07:30 88 26 H 116/49 L 96 Intake and Output (Last 8hrs): Intake & Output 06/02/17 06/03/17 06/03/17 22:59 06:59 14:59 Intake Total 120 660 Output Total 250 650 Balance -130 10 Intake: IV 60 Right Forearm 60 Oral 120 600 Output: Urine 250 650 Urine, Voided 250 650 Emesis 0 Oral Regurgitation 0 Other 0 Other: # Voids Urine, Voided 1 1 # Bowel Movements 1 0 - Medications Active Medications: Active Medications Generic Name Dose Route Start Last Admin Trade Name Freq PRN Reason Stop Dose Admin Atorvastatin Calcium 40 mg 06/01/17 10:00 06/03/17 09:47 Lipitor PO 40 mg DAILY BAKARI Administration Bupropion HCl 75 mg 06/01/17 10:00 06/03/17 09:51 Wellbutrin PO 75 mg BID BAKARI Administration Enoxaparin Sodium 40 mg 06/01/17 12:30 06/03/17 09:45 Lovenox SC 40 mg DAILY BAKARI Administration Protocol Furosemide 40 mg 06/04/17 10:00 Lasix IVP DAILY BAKARI Gabapentin 300 mg 06/01/17 10:00 06/03/17 09:47 Neurontin PO 300 mg DAILY BAKARI Administration Protocol Dobutamine HCl/Dextrose 500 mg in 250 mls @ 5.613 mls/hr 06/02/17 18:23 06/02 18:51 Dobutamine/Dextrose 5% 500mg/250ml IV 2.5 mcg/kg/min .Q24H PRN 5.613 mls/hr TITRATE PER PROTOCOL Administration Protocol 2.5 MCG/KG/MIN Insulin Detemir 10 unit 06/03/17 10:00 06/03/17 09:47 Levemir SC 10 unit BID BAKARI Administration Ipratropium [place] 0.5 mg 06/01/17 14:00 06/03/17 07:12 Atrovent IH 0.5 mg [id number] BAKARI Administration Ipratropium [place] 0.5 mg 06/01/17 16:00 Atrovent IH [id number] PRN Shortness of Breath Levalbuterol HCl 1.25 mg 06/01/17 12:40 06/03/17 07:12 Xopenex IH 1.25 mg [id number] BAKARI Administration Levalbuterol HCl 0.63 mg 06/01/17 12:42 Xopenex IH [id number] PRN Shortness of Breath Magnesium Oxide 400 mg 06/01/17 10:00 06/03/17 09:47 Mag-Ox PO 400 mg BID BAKARI Administration Methylprednisolone 20 mg 06/02/17 22:00 06/03/17 09:45 Solu-Medrol IVP 20 mg Q12 BAKARI Administration Metoprolol Tartrate 12.5 mg 06/01/17 22:00 06/03/17 09:49 Lopressor PO Not Given Q12 BAKARI Atomoxetine Hcl [ 60 mg 06/01/17 10:00 06/03/17 10:52 Strattera] 60 Mg PO Not Given DAILY BAKARI Pantoprazole Sodium 40 mg 06/01/17 10:00 06/03/17 09:46 Protonix Inj IVP 40 mg DAILY BAKARI Administration Sildenafil Citrate 20 mg 06/01/17 14:00 06/03/17 06:17 Revatio PO 20 mg Q8 BAKARI Administration - Patient Studies Lab Studies: Lab Studies 06/03/17 06/03/17 06/03/17 Range/Units 07:20 05:15 05:15 WBC 5.8 D (4.5-11.0) 10^3/ul RBC 3.38 L (3.5-6.1) 10^6/uL Hgb 10.5 L (14.0-18.0) g/dL Hct 31.6 L (42.0-52.0) % MCV 93.5 (80.0-105.0) fl MCH 31.1 (25.0-35.0) pg MCHC 33.2 (31.0-37.0) g/dl RDW 14.1 (11.5-14.5) % Plt Count 152 (120.0-450.0) 10^3/uL MPV 11.6 H (7.0-11.0) fl Gran % 88.1 H (50.0-68.0) % Lymph % (Auto) 5.5 L (22.0-35.0) % Mcnairy % (Auto) 6.4 H (1.0-6.0) % Eos % (Auto) 0.0 L (1.5-5.0) % Baso % (Auto) 0.0 (0.0-3.0) % Gran # 5.13 (1.4-6.5) Lymph # 0.3 L (1.2-3.4) Mcnairy # 0.4 (0.1-0.6) Eos # 0.0 (0.0-0.7) Baso # 0.00 (0.0-2.0) K/mm3 Sodium 132 (132-148) mmol/L Potassium 4.7 (3.6-5.0) mmol/L Chloride 93 L (98-107) mmol/L Carbon Dioxide 29 (21-33) mmol/L Anion Gap 15 (10-20) BUN 47 H (7-21) mg/dL Creatinine 1.2 (0.8-1.5) mg/dl Est GFR ( Amer) > 60 Est GFR (Non-Af Amer) 58 POC Glucose (mg/dL) 325 H (65-110) mg/dL Random Glucose 344 H* D (70-110) mg/dL Calcium 9.3 (8.4-10.5) mg/dL Total Bilirubin 0.9 (0.2-1.3) mg/dL AST 39 (17-59) U/L ALT 59 H (7-56) U/L Alkaline Phosphatase 104 (38-126) U/L Total Protein 6.0 (5.8-8.3) g/dL Albumin 3.3 (3.0-4.8) g/dL Globulin 2.7 gm/dL Albumin/Globulin Ratio 1.2 (1.1-1.8) 06/02/17 06/02/17 06/02/17 Range/Units 21:30 16:17 11:23 WBC (4.5-11.0) 10^3/ul RBC (3.5-6.1) 10^6/uL Hgb (14.0-18.0) g/dL Hct (42.0-52.0) % MCV (80.0-105.0) fl MCH (25.0-35.0) pg MCHC (31.0-37.0) g/dl RDW (11.5-14.5) % Plt Count (120.0-450.0) 10^3/uL MPV (7.0-11.0) fl Gran % (50.0-68.0) % Lymph % (Auto) (22.0-35.0) % Mcnairy % (Auto) (1.0-6.0) % Eos % (Auto) (1.5-5.0) % Baso % (Auto) (0.0-3.0) % Gran # (1.4-6.5) Lymph # (1.2-3.4) Mcnairy # (0.1-0.6) Eos # (0.0-0.7) Baso # (0.0-2.0) K/mm3 Sodium (132-148) mmol/L Potassium (3.6-5.0) mmol/L Chloride (98-107) mmol/L Carbon Dioxide (21-33) mmol/L Anion Gap (10-20) BUN (7-21) mg/dL Creatinine (0.8-1.5) mg/dl Est GFR ( Amer) Est GFR (Non-Af Amer) POC Glucose (mg/dL) 238 H 199 H 206 H (65-110) mg/dL Random Glucose (70-110) mg/dL Calcium (8.4-10.5) mg/dL Total Bilirubin (0.2-1.3) mg/dL AST (17-59) U/L ALT (7-56) U/L Alkaline Phosphatase (38-126) U/L Total Protein (5.8-8.3) g/dL Albumin (3.0-4.8) g/dL Globulin gm/dL Albumin/Globulin Ratio (1.1-1.8) Laboratory Results - last 24 hr 06/02/17 06/02/17 06/02/17 11:23 16:17 21:30 WBC RBC Hgb Hct MCV MCH MCHC RDW Plt Count MPV Gran % Lymph % (Auto) Mcnairy % (Auto) Eos % (Auto) Baso % (Auto) Gran # Lymph # Mcnairy # Eos # Baso # Sodium Potassium Chloride Carbon Dioxide Anion Gap BUN Creatinine Est GFR ( Amer) Est GFR (Non-Af Amer) POC Glucose (mg/dL) 206 H 199 H 238 H Random Glucose Calcium Total Bilirubin AST ALT Alkaline Phosphatase Total Protein Albumin Globulin Albumin/Globulin Ratio 06/03/17 06/03/17 06/03/17 05:15 05:15 07:20 WBC 5.8 D RBC 3.38 L Hgb 10.5 L Hct 31.6 L MCV 93.5 MCH 31.1 MCHC 33.2 RDW 14.1 Plt Count 152 MPV 11.6 H Gran % 88.1 H Lymph % (Auto) 5.5 L Mcnairy % (Auto) 6.4 H Eos % (Auto) 0.0 L Baso % (Auto) 0.0 Gran # 5.13 Lymph # 0.3 L Mcnairy # 0.4 Eos # 0.0 Baso # 0.00 Sodium 132 Potassium 4.7 Chloride 93 L Carbon Dioxide 29 Anion Gap 15 BUN 47 H Creatinine 1.2 Est GFR ( Amer) > 60 Est GFR (Non-Af Amer) 58 POC Glucose (mg/dL) 325 H Random Glucose 344 H* D Calcium 9.3 Total Bilirubin 0.9 AST 39 ALT 59 H Alkaline Phosphatase 104 Total Protein 6.0 Albumin 3.3 Globulin 2.7 Albumin/Globulin Ratio 1.2 Critical Care Progress Note - Nutrition Nutrition: Nutrition Category Date Time Status Regular Diet [DIET] Diets 06/02/17 Dinner Ordered Assessment/Plan - Assessment and Plan (Free Text) Plan: Patient seen and examined, on rounds with resident, agree with note, with following additions/exceptions: 82yo male with severe Pulm HTN a/w SOB. B SOB Hx of Severe Pulm HTN COPD Recommend: - supp o2 as needed - duonebs PRN, Pulmicort - Solumedrol IV - IV lasix - Cont with Revatio - GI ppx - DVT ppx - Dobutamine - OOB to chair - resume diet - transfer to telemetry
--- NOTE | 2017-06-03 11:43 | PN ---
DATE: 06/02/2017 SUBJECTIVE: The patient is status post right heart cath for pulmonary pressure measurements. The patient seems comfortable, saturating 97% on 4 liters nasal cannula. He seems comfortable. No distress. The patient, otherwise, has no new complaints. PHYSICAL EXAMINATION: VITAL SIGNS: On 06/02/2017 as follows; his temperature 98, his heart rate in the 89, respiratory rate is 27, he is saturating 97% on 5 liters, and blood pressure is 133/61. HEAD AND NECK: Normal. No JVD. No thyromegaly. CHEST: Clear. Good air entry. CARDIAC: First sound and second sound normal. There is systolic murmur across the aortic area. ABDOMEN: Soft and nontender. EXTREMITIES: Edema is much improved. NEUROLOGIC: Normal. LABORATORY DATA: On 06/02/2017; white count 4, hemoglobin 10.5, hematocrit 31.7, and platelets 158. Chemistry shows sodium 131, potassium 4.4, chloride 92, bicarb 28, BUN 49, and creatinine 1.3. His blood sugar was 164. His liver function tests 78 AST, ALT 77, and alkaline phosphatase 131. His troponin is 0.03, no change. IMPRESSION AND PLAN: 1. Worsening pulmonary hypertension, probably combined, secondary to left-sided heart failure, status post right-sided heart catheterization. The patient had right heart catheterization, which he noted for pulmonary pressure, right ventricular pressure is 103/25. His pulmonary catheter wedge pressure is 30 or 32. PVR is 10.6 wood units. Cardiac output is 3.10. We will continue current therapy. We will try clinically to treat the patient for left-sided heart failure with diuretics as noted here his wedge pressure in 30 or 32. We will also try to get his medications for treatment of his underlying pulmonary hypertension. 2. Diabetes: We are going to resume insulin. 3. Underlying chronic obstructive pulmonary disease: Continue inhaled bronchodilator. Continue steroids. 4. Coronary artery disease, bypass surgery, valve replacement, aortic valve and mitral valve: The patient is stable. He has an stress test, which is normal. 5. Depression, syndrome, and peripheral neuropathy. We will continue Wellbutrin. We will continue Neurontin. Continue gastrointestinal and deep vein thrombosis prophylaxis. Also we will continue magnesium, Lopressor, and Lipitor. We will follow up clinically. We will discuss in detail with the patient, with the physician and also we will discuss with Dr. Bustos. I did discuss the case with Dr. Sosa. Arya Booker MD
[2017-06-03] MEDS: Insulin Reg-MEDIUM-Coverage SC SCH ×3 (12:37→23:09)
--- NOTE | 2017-06-03 15:00 | PN ---
DATE: 06/03/2017 REASON FOR CONSULTATION AND FOLLOWUP: Shortness of breath, congestive heart failure, history of AVR, history of mitral valve repair, history of one-vessel CABG, severe pulmonary hypertension, status post right heart catheterization, on of Dobutrex. SUBJECTIVE: The patient feels better. Denies any chest pain, shortness of breath, or any palpitations. OBJECTIVE: GENERAL: Lying flat on the bed. Not in apparent distress. VITAL SIGNS: Afebrile, heart rate 90, blood pressure 108/58. HEENT: PERRLA. Extraocular muscles intact. NECK: Supple. No carotid bruits or thyromegaly. CHEST: Clear to auscultation. HEART: S1 and S2, regular. ABDOMEN: Soft. EXTREMITIES: Clubbing and cyanosis negative. LABORATORY DATA: Blood workup as follows: WBC 5.8, hemoglobin 10.5, hematocrit 31.6, platelet count 152. Chemistry showed sodium 130, potassium 4.7, chloride 93, carbon dioxide 29, anion gap of 15, BUN 47, creatinine 1.2. IMPRESSION: Severe pulmonary hypertension, status post right heart catheterization that revealed RA 18 to 20, RV 103/25, PA 103/48, mean PA 65 mmHg, pulmonary capillary wedge pressure 30 to 32, cardiac output 3.1, cardiac index 1.67, pulmonary vascular resistance 10.6 Wood unit. Recommended aggressive treatment for pulmonary hypertension. History of coronary artery bypass surgery, one-vessel right coronary artery, history of bioprosthetic aortic valve replacement, history of mitral valve repair, preserved left ventricular function. Last echo dated 05/06/2017, preserved with ejection fraction of 65%, [id number] aortic regurgitation, bioprosthetic aortic valve replacement, moderate to severe pulmonary hypertension, right ventricular systolic pressure 151 by echo, diabetes, hypertension, hyperlipidemia. RECOMMENDATIONS: The patient will be better off in having Primacor, milrinone, rather than the Dobutrex with other risk of AFib. It is started by Dr. Bustos for right ventricular failure. Continue Revatio and further recommendation as per Pulmonary for pulmonary hypertension. Needs aggressive treatment for pulmonary hypertension. Continue gentle diuretics to keep negative fluid balance. The patient had recently a stress test on 04/18/2017 with fixed defect and no reversible ischemia. The patient had V/Q scan done on 05/21/2017, low probability of PE. As mentioned, the patient had a stress test on 05/06/2017 that shows normal SPECT scan with ejection fraction of 73%. In comparison with the last study dated 08/27/2013, no significant change. Continue gentle diuretics. Continue . Continue Dobutrex. We will decrease the IV Lasix to once a day. Continue Revatio. Monitor electrolytes closely. We will follow with you. Continue DVT prophylaxis. Thank you Dr. Booker for providing us the opportunity in taking care of the patient, Nkechi Cat. Guru Sosa MD
--- NOTE | 2017-06-04 01:29 | PN ---
PULMONARY PROGRESS NOTE DATE: 06/03/2017 REFERRING PHYSICIAN: Arya Booker MD SUBJECTIVE: He is sitting side of the bed, having dinner, feels much better, breathing is improved. No chest pain. No nausea. No vomiting. No diarrhea. No leg pain or leg swelling. OBJECTIVE: VITAL SIGNS: Temperature is 98, heart rate is 80, respiratory rate is 20, blood pressure 124/84, pulse ox is 97% on 3 liters nasal cannula. HEENT: Moist mucous membranes. Crowded airway. NECK: Supple. No JVD. LUNGS: Has a fair airflow with no wheezing. HEART: S1 and S2. ABDOMEN: Soft, nontender. No organomegaly. EXTREMITIES: No edema. NEUROLOGICALLY: Awake and follow simple commands. MEDICATIONS: He is on Atrovent inhaled q. 6 hours, dobutamine 2.5 mcg/kg per minute, insulin coverage, Lasix 40 mg IV daily, Levemir 10 units subcu twice a day, Lipitor 40 mg daily, metoprolol tartrate 12.5 mg twice a day, Lovenox 40 mg daily, magnesium oxide 400 mg twice a day, Neurontin 300 mg daily, Protonix 40 mg daily, Revatio 20 mg q. 8 hours, Solu-Medrol 20 mg q. 8 hours, Wellbutrin 75 mg twice a day, Xopenex inhaled q. 6 hours. LABORATORY DATA: Shows hemoglobin 10.5, hematocrit 31.6, WBC 5.8, platelet count is 152. Sodium of 132, potassium of 4.7, chloride 93, bicarbonate 29, BUN 47, creatinine 1.2, glucose 241, calcium 9.3, AST 39, ALT 59, alk phos is 104, albumin is 3.3. IMPRESSION AND PLAN: Cardiomyopathy with severe pulmonary hypertension, may have cardiac asthma, hypertension, coronary artery disease, history of coronary bypass surgery, aortic bioprosthetic valve. Case discussed with the patient in details. I spoke with Dr. Booker in detail. The patient will need triple pulmonary hypertension treatment including prostacyclin, endothelin inhibitor and PDE5 inhibitors. Continue small dose of diuretics. We will recommend discontinue steroids. We will continue dobutamine until the p.o. drugs are available. We will need Letairis 10 mg daily, Revatio 20 mg three times a day, also we will suggest getting Orenitram, which is treprostinil with starting dose at 0.25 mg twice a day daily and should titrate up as tolerated by the patient every three to four days up to at least 1.25 mg daily. We will continue dobutamine for now. Case discussed Dr. Booker in detail. Critical care time was more than 35 minutes. We will follow with you. Guru Bustos MD
[2017-06-04] MEDS: Ipratropium 0.02% Inhal Soln (0.5 mg/2.5 ml) UD IH SCH ×4 (02:11→21:51)
[2017-06-04 05:55] LABS: GRAN # 9.07 (1.4-6.5); GRAN % 90.5 % (50.0-68.0); HEMOGLOBIN 11.4 g/dL (14.0-18.0); LYMPH # 0.4 (1.2-3.4); LYMPH % 3.9 % (22.0-35.0); MEAN CORPUSCULAR HEMOGLOBIN 31.1 pg (25.0-35.0); MEAN CORPUSCULAR HGB CONC 33.1 g/dl (31.0-37.0); MEAN PLATELET VOLUME 11.8 fl (7.0-11.0); MONO # 0.6 (0.1-0.6); MONO % 5.6 % (1.0-6.0); PLATELET COUNT 156 10^3/uL (120.0-450.0); RBC 3.66 10^6/uL (3.5-6.1); RED CELL DISTRIBUTION WIDTH 14.2 % (11.5-14.5)
[2017-06-04] MEDS: Sildenafil 20 MG TAB PO SCH ×3 (06:16→22:23)
[2017-06-04 06:39] LABS: BAND 2 % (0-2); LYMPHOCYTE 5 % (22.0-35.0); MONOCYTE 6 % (1.0-6.0); NEUTROPHIL 87 % (50.0-70.0); PLATELET ESTIMATE NORMAL (NORMAL)
[2017-06-04 06:59] LABS: ALB/GLOB RATIO 1.2 (1.1-1.8); ALBUMIN 3.5 g/dL (3.0-4.8); ALT/SGPT 67 U/L (7-56); AST/SGOT 47 U/L (17-59); BLOOD UREA NITROGEN 47 mg/dL (7-21); CALCIUM 9.6 mg/dL (8.4-10.5); GFR AFRICAN-AMERICAN > 60; GFR NON-AFRICAN AMERICAN > 60
[2017-06-04] MEDS: Insulin Reg-MEDIUM-Coverage SC SCH ×3 (08:00→22:20)
[2017-06-04] MEDS: Levalbuterol 1.25 MG/3 ML Inhal Soln UD IH SCH ×3 (08:11→21:51)
--- NOTE | 2017-06-04 08:19 | PN ---
DATE: 06/03/2017 SUBJECTIVE: On examination, the patient was lying on the bed, not in acute distress. PHYSICAL EXAMINATION VITAL SIGNS: Pulse 96, blood pressure is 144/46, respirations 20, oxygen saturation 84%. HEENT: Atraumatic and anicteric. NECK: Supple. HEART: S1 and S2 heard. LUNGS: Bilateral air entry present. ABDOMEN: Soft. No tenderness. EXTREMITIES: No cyanosis. No clubbing. LABORATORY DATA: Hemoglobin is 10.5, hematocrit 31.6, WBC 5.8, platelets 152. Chemistry shows significant improvement of the LFTs. ALT has come down to 59. IMPRESSION: Abnormal liver function tests improving with improvement of the cardiac status. The patient has severe pulmonary hypertension, history of valvular disease, status post aortic valve replacement, status post mitral valve repair. Would recommend followup LFT , the patient has gallstones, normal CBD . PLAN: The plan is to continue to follow up the LFTs. Continue the present management. The patient was advised to take his MiraLax on a p.r.n. basis. I will continue to closely follow the LFT. Thank you for allowing me to participate in the care of the patient. Karly Fraser MD MTDD
[2017-06-04] MEDS: Insulin Detemir 100 units/ml Vial (Levemir) SC SCH ×2 (09:58→17:18)
[2017-06-04] MEDS: Pantoprazole 40 mg EC Tab PO SCH (09:58)
[2017-06-04] MEDS: Enoxaparin 40 mg Syringe SC SCH (09:59)
[2017-06-04] MEDS: Magnesium Oxide 400 mg Tab UD PO SCH ×2 (09:59→17:19)
--- NOTE | 2017-06-04 10:54 | PN ---
DATE: 06/03/2017 SUBJECTIVE: The patient is comfortable, lying in bed, in no acute distress, saturating 97% on 4 L or 5 L nasal cannula. He is on IV dobutamine. He is doing well. Had right-sided heart cath and report is on the chart. OBJECTIVE: VITAL SIGNS: Temperature 98, heart rate 89, blood pressure 134/61, respirations 15, saturating 98%. HEAD AND NECK: Normal. No JVD. No thyromegaly. CHEST: Clear. CARDIAC: First and second sounds normal. Systolic ejection murmur on the aortic area. ABDOMEN: Soft, nontender. EXTREMITIES: No edema. NEUROLOGIC: Normal. LABORATORY STUDY: White count 5.8, hemoglobin 10.5, hematocrit 31.6, platelets 152. Chemistry: His sodium 132, potassium 4.7, chloride 93, bicarb 29, BUN 47, creatinine 1.2, blood sugar 344. Liver enzymes is within normal range except an ALT of 59. Alk phos is normal. Albumin 3.3, globulin 2.7. IMPRESSION AND PLAN: 1. Acute congestive heart failure, right-sided more than left. The patient does have a wedge pressure of almost 33 on right-sided heart catheterization, which seemed to reflect left atrial pressure elevation in addition to right-sided almost on the right side, which could conclude at the right ventricular pressure, it is of 90 range, right pulmonary pressure. We will continue Lasix to reduce his pulmonary vascular congestion from the left atrial elevations. In addition, continue IV dobutamine, which helps his right-sided heart failure and pulmonary hypertension symptoms in addition to continuation of Lasix for the right-sided fluid overload. The patient will continue treatment for now until we try to get the authorization for medication for his pulmonary hypertension. Discussed with Dr. Bustos in detail. We will work on that in the morning according to and after we dictate the medication dosage and what medicines we need. His will be given to the patient in addition to Revatio, which also will help pulmonary hypertension. 2. Diabetes. The patient has sugar elevations. We will adjust his insulin with his Levemir. We will give him 10 mg b.i.d. in addition to his insulin coverage. 3. Chronic obstructive pulmonary hypertension. Continue inhaled bronchodilators. We will discontinue Solu-Medrol, and we will follow up clinically. Discussed with Dr. Bustos about discontinuing Solu-Medrol. 4. Anxiety, depression, peripheral neuropathy, adult attention deficit syndrome, hypercholesterolemia. Continue his rest of the medications. The patient was seen in the ICU on that day. Arya Booker MD
--- NOTE | 2017-06-04 13:21 | PN ---
DATE: 06/04/2017 REASON FOR CONSULTATION AND FOLLOWUP: Cardiac evaluation, severe pulmonary hypertension, one-vessel CABG, AVR and MVR, status post right heart catheterization consistent with severe pulmonary hypertension. SUBJECTIVE: Denies any chest pain, denies any shortness of breath. Denies any palpitations. Feeling better. OBJECTIVE: GENERAL: Not in apparent distress. Lying flat in the bed. VITAL SIGNS: As follows; temperature afebrile, heart rate 78, blood pressure 124/80. HEENT: PERRLA. Extraocular muscles intact. NECK: Supple. No carotid bruit or thyromegaly. CHEST: Clear to auscultation. HEART: S1 and S2 regular. ABDOMEN: Soft. EXTREMITIES: Clubbing and cyanosis negative. LABORATORY DATA: Blood workup as follows; WBC 10, hemoglobin 11.4, hematocrit 34.4, platelet count 156. Chemistry shows sodium 136, potassium 5.1, chloride 98, carbon dioxide 31, anion gap of 15, BUN 47, creatinine 1.1. IMPRESSION: Severe pulmonary hypertension, PA pressure 103, pulmonary vascular resistance 10.6 Wood unit, preserved left ventricular function, ejection fraction 65% by echo, PA pressure of 151, [id number] aortic regurgitation, status post bioprosthetic aortic valve replacement, moderate severe pulmonary hypertension, diabetes, hypertension, hyperlipidemia, status post mitral valve replacement repair, one-vessel coronary artery bypass graft. RECOMMENDATIONS: Continue gentle diuretics, the patient's Revatio and sildenafil. Consider adding bosentan antagonist or Flolan or prostacyclin inhalation or p.o. As per Pulmonary, we will follow with you. CVS status is stable. Continue DVT prophylaxis. We will keep negative fluid balance. We are giving gentle diuretics. Continue metoprolol 12.5 mg b.i.d. Continue atorvastatin. Currently, the patient is on Dobutrex as per Pulmonary. We will follow. CVS status stable. No further cardiac workup is planned. Thank you Dr. Booker for providing the opportunity in taking care of the patient, Emory Arboleda. We will follow with you. Supplement electrolytes as needed, potassium is 5.1 most likely secondary to steroid but early. Repeat lab in the morning. Guru Sosa MD
[2017-06-04] MEDS ORDERED: POLYETHYLENE GLYCOL 3350 17 GM/Dose PACKET PO ONE (13:22)
--- NOTE | 2017-06-04 13:22 | CP.PCM.PN ---
<Juliana Junior - Last Filed: 06/04/17 13:17> Subjective - Date & Time of Evaluation Date of Evaluation: 06/04/17 Time of Evaluation: 10:00 - Subjective Subjective: Seen and examined at the bedside earlier today, the chart was reviewed. No acute overnight events reported. Patient reports bowel movement 2 days ago that was semi-loose no reports of bleeding, denies feeling constipation. Tolerated breakfast, no new complaints. Denies shortness of breath or chest pain. Objective - Vital Signs/Intake and Output Vital Signs (last 24 hours): Temp Pulse Resp BP Pulse Ox 98.6 F 79 18 123/53 L 96 06/04/17 11:27 06/04/17 11:27 06/04/17 11:27 06/04/17 11:27 06/03/17 23:30 Intake and Output: 06/04/17 06/04/17 06:59 18:59 Intake Total 736 Output Total 1320 Balance -584 - Medications Medications: Current Medications Atorvastatin Calcium (Lipitor) 40 mg PO DAILY [facility] Last Admin: 06/04/17 09:58 Dose: 40 mg Bupropion HCl (Wellbutrin) 75 mg PO BID [facility] Last Admin: 06/04/17 09:58 Dose: 75 mg Enoxaparin Sodium (Lovenox) 40 mg SC DAILY [facility] PRN Reason: Protocol Last Admin: 06/04/17 09:59 Dose: 40 mg Furosemide (Lasix) 40 mg IVP DAILY [facility] Last Admin: 06/04/17 09:57 Dose: 40 mg Gabapentin (Neurontin) 300 mg PO DAILY [facility] PRN Reason: Protocol Last Admin: 06/04/17 09:58 Dose: 300 mg Dobutamine HCl/Dextrose (Dobutamine/Dextrose 5% 500mg/250ml) 500 mg in 250 mls @ 5.613 mls/hr IV .Q24H PRN; Protocol; 2.5 MCG/KG/MIN PRN Reason: TITRATE PER PROTOCOL Last Admin: 06/02/17 18:51 Dose: 2.5 mcg/kg/min, 5.613 mls/hr Insulin Detemir (Levemir) 10 unit SC BID [facility] Last Admin: 06/04/17 09:58 Dose: 10 unit Insulin Human Regular (Humulin R Med) 0 units SC ACHS [facility] PRN Reason: Protocol Last Admin: 06/04/17 11:30 Dose: 8 units Ipratropium [place] (Atrovent) 0.5 mg IH [id number] [facility] Last Admin: 06/04/17 08:11 Dose: 0.5 mg Ipratropium [place] (Atrovent) 0.5 mg IH [id number] PRN PRN Reason: Shortness of Breath Levalbuterol HCl (Xopenex) 1.25 mg IH [id number] [facility] Last Admin: 06/04/17 08:11 Dose: 1.25 mg Levalbuterol HCl (Xopenex) 0.63 mg IH [id number] PRN PRN Reason: Shortness of Breath Magnesium Oxide (Mag-Ox) 400 mg PO BID [facility] Last Admin: 06/04/17 09:59 Dose: 400 mg Metoprolol Tartrate (Lopressor) 12.5 mg PO Q12 [facility] Last Admin: 06/04/17 09:58 Dose: 12.5 mg Atomoxetine Hcl [ (Strattera] 60 Mg) 60 mg PO DAILY [facility] Last Admin: 06/04/17 11:24 Dose: Not Given Pantoprazole Sodium (Protonix Ec Tab) 40 mg PO DAILY [facility] Last Admin: 06/04/17 09:58 Dose: 40 mg Sildenafil Citrate (Revatio) 20 mg PO Q8 [facility] Last Admin: 06/04/17 06:16 Dose: 20 mg - Labs Labs: 06/04/17 05:45 06/04/17 05:45 PT 15.4 SECONDS (9.4-12.5) H 05/31/17 19:20 INR 1.40 (0.93-1.08) H 05/31/17 19:20 APTT 29.6 Seconds (25.1-36.5) 05/31/17 19:20 - Constitutional Appears: No Acute Distress - Head Exam Head Exam: NORMOCEPHALIC - Eye Exam Eye Exam: Normal appearance. absent: Scleral icterus - ENT Exam ENT Exam: Mucous Membranes Moist - Neck Exam Neck Exam: Normal Inspection - Respiratory Exam Respiratory Exam: Wheezes, NORMAL BREATHING PATTERN. absent: Respiratory Distress - Cardiovascular Exam Cardiovascular Exam: +S1, +S2 - GI/Abdominal Exam GI & Abdominal Exam: Soft, Normal Bowel Sounds. absent: Guarding, Tenderness, Rebound - Extremities Exam Extremities Exam: absent: Calf Tenderness, Pedal Edema - Neurological Exam Neurological Exam: Alert, Awake, Oriented x3 - Skin Skin Exam: Dry, Warm Assessment and Plan - Assessment and Plan (Free Text) Assessment: Assessment: elevated LFTs, improving Severe pulmonary hypertension Valvular heart disease, status post aortic and mitral valve replacements CHF Cholelithiasis Plan: Continue diet as tolerated Continue PPI Continue to trend LFTs Give dose of MiraLAX, patient can take on when necessary basis As per cardiology Seen and discussed with Dr. Fraser. <Karly Fraser V - Last Filed: 06/04/17 23:09> Objective - Vital Signs/Intake and Output Vital Signs (last 24 hours): Temp Pulse Resp BP Pulse Ox 98.4 F 85 20 128/56 L 96 06/04/17 18:00 06/04/17 22:21 06/04/17 18:00 06/04/17 22:21 06/03/17 23:30 Intake and Output: 06/04/17 06/05/17 18:59 06:59 Intake Total 850 Output Total 675 Balance 175 - Medications Medications: Current Medications Atorvastatin Calcium (Lipitor) 40 mg PO DAILY [facility] Last Admin: 06/04/17 09:58 Dose: 40 mg Bupropion HCl (Wellbutrin) 75 mg PO BID [facility] Last Admin: 06/04/17 17:19 Dose: 75 mg Enoxaparin Sodium (Lovenox) 40 mg SC DAILY [facility] PRN Reason: Protocol Last Admin: 06/04/17 09:59 Dose: 40 mg Furosemide (Lasix) 40 mg IVP DAILY [facility] Last Admin: 06/04/17 09:57 Dose: 40 mg Gabapentin (Neurontin) 300 mg PO DAILY [facility] PRN Reason: Protocol Last Admin: 06/04/17 09:58 Dose: 300 mg Dobutamine HCl/Dextrose (Dobutamine/Dextrose 5% 500mg/250ml) 500 mg in 250 mls @ 5.613 mls/hr IV .Q24H PRN; Protocol; 2.5 MCG/KG/MIN PRN Reason: TITRATE PER PROTOCOL Last Admin: 06/04/17 20:54 Dose: 2.5 mcg/kg/min, 5.613 mls/hr Insulin Detemir (Levemir) 10 unit SC BID [facility] Last Admin: 06/04/17 17:18 Dose: 10 unit Insulin Human Regular (Humulin R Med) 0 units SC ACHS [facility] PRN Reason: Protocol Last Admin: 06/04/17 22:20 Dose: Not Given Ipratropium [place] (Atrovent) 0.5 mg IH [id number] [facility] Last Admin: 06/04/17 21:51 Dose: 0.5 mg Ipratropium [place] (Atrovent) 0.5 mg IH [id number] PRN PRN Reason: Shortness of Breath Levalbuterol HCl (Xopenex) 1.25 mg IH [id number] [facility] Last Admin: 06/04/17 21:51 Dose: 1.25 mg Levalbuterol HCl (Xopenex) 0.63 mg IH [id number] PRN PRN Reason: Shortness of Breath Magnesium Oxide (Mag-Ox) 400 mg PO BID [facility] Last Admin: 06/04/17 17:19 Dose: 400 mg Metoprolol Tartrate (Lopressor) 12.5 mg PO Q12 [facility] Last Admin: 06/04/17 22:21 Dose: 12.5 mg Atomoxetine Hcl [ (Strattera] 60 Mg) 60 mg PO DAILY [facility] Last Admin: 06/04/17 11:24 Dose: Not Given Pantoprazole Sodium (Protonix Ec Tab) 40 mg PO DAILY [facility] Last Admin: 06/04/17 09:58 Dose: 40 mg Sildenafil Citrate (Revatio) 20 mg PO Q8 [facility] Last Admin: 06/04/17 22:23 Dose: 20 mg - Labs Labs: 06/04/17 05:45 06/04/17 05:45 PT 15.4 SECONDS (9.4-12.5) H 05/31/17 19:20 INR 1.40 (0.93-1.08) H 05/31/17 19:20 APTT 29.6 Seconds (25.1-36.5) 05/31/17 19:20 Attending/Attestation - Attestation I have personally seen and examined this patient.: Yes I have fully participated in the care of the patient.: Yes I have reviewed all pertinent clinical information, including history, physical exam and plan: Yes Notes (Text): This is an addendum to GI progress report dictated by Juliana Junior APN.The patient was seen and examined earlier. Medical records, lab studies, imagings were reviewed. Last 24 hours events reviewed. Agreed with the above treatment plan as outlined in Juliana Junior APN's notes the with the addition of the following Feels better Patient denies any abdominal pain LFTs shows improvement Probably secondary to hepatic congestion with a history of severe pulmonary hypertension, valvular heart disease 06/04/17 23:07
--- NOTE | 2017-06-04 13:42 | IP.NPCORE ---
Heart Failure Core Measure - Heart Failure Ejection Fraction: 40 % or Greater KENA Inhibitor Prescribed: No Contraindication/Reason for not providing: renal insuff Beta-Jordyn Prescribed: Metoprolol Succinate Angiotensin II Receptor Jordyn Prescribed: No Contraindication/Reason for not providing: renal insuff AnticoagulationTherapy for Atrial Fibrillation/Atrialflutter: No Implantable Cardioverter Defibrillator Therapy: No - Follow up Will be discharged to: Home
--- NOTE | 2017-06-04 19:58 | PN ---
PULMONARY PROGRESS NOTE DATE: 06/04/2017 REFERRING PHYSICIAN: Arya Booker MD SUBJECTIVE: The patient is lying on the bed, head at 45 degrees, and feels better. He is on dobutamine drip and Revatio, off steroids. No nausea. No vomiting, diarrhea, leg pain or leg swelling. OBJECTIVE: GENERAL: In no acute distress. VITAL SIGNS: Temperature is 98, heart rate is 80, respiratory rate is 20, and blood pressure is 123/53. HEENT: Moist mucous membranes. Crowded airway. Mallampati score is IV. NECK: Supple. No JVD. LUNGS: Has a few crackles. HEART: S1 and S2. ABDOMEN: Soft and nontender. No organomegaly. EXTREMITIES: There is no edema. NEUROLOGIC: Awake, alert, and follow simple commands. MEDICATIONS: He is on Atrovent inhaled q.6 hours, dobutamine 2.5 mcg/kg/minute, insulin coverage, Lasix 40 mg daily, Levemir 10 units subcutaneously twice a day, Lipitor 40 mg daily, metoprolol tartrate 12.5 mg twice a day, Lovenox 40 mg daily, magnesium oxide 400 mg daily, gabapentin 300 mg daily, Protonix 40 mg daily, Revatio 20 mg q.8 hours, Wellbutrin 75 mg twice a day, and Xopenex inhaled q.6 hours. LABORATORY DATA: Shows hemoglobin 11.4, hematocrit 34, WBC 10.0, and platelet is 156. Sodium 133, potassium 5.1, chloride 92, bicarbonate 31, BUN 47, creatinine 1.1, glucose 179, calcium 9.6, AST 47, ALT 67, alk phos is 118, and albumin is 3.5. IMPRESSION AND PLAN: Cardiomyopathy with severe pulmonary hypertension, probably have cardiac asthma, hypertension, coronary artery disease, history of coronary artery bypass surgery, and aortic bioprosthetic valve. I spoke to discharge planning and sr. social media & mobile manager. For now, continue dobutamine and Revatio while inpatient. Upon discharge, the patient will need Revatio 20 mg 3 times a day, Letairis 10 mg daily, and also will need Orenitram starting 0.25 mg, raising up to 1.25 mg daily. Continue diuretics for now. Once euvolemic, we will discontinue diuretics probably. Thank you and we will follow with you. Guru Bustos MD [facility] # [id number]
[2017-06-04] MEDS: DOBUTamine 500mg/250ml D5W 500 MG/250 ML BAG IV PRN (20:54)
[2017-06-05] MEDS: Ipratropium 0.02% Inhal Soln (0.5 mg/2.5 ml) UD IH SCH ×4 (03:07→22:15)
[2017-06-05] MEDS: Sildenafil 20 MG TAB PO SCH ×3 (05:58→21:19)
[2017-06-05 07:05] LABS: BLOOD UREA NITROGEN 44 mg/dL (7-21); GFR AFRICAN-AMERICAN > 60; GFR NON-AFRICAN AMERICAN > 60
[2017-06-05] MEDS: Levalbuterol 1.25 MG/3 ML Inhal Soln UD IH SCH ×3 (07:54→22:12)
[2017-06-05] MEDS: Insulin Reg-MEDIUM-Coverage SC SCH ×3 (08:06→16:14)
[2017-06-05] MEDS: Pantoprazole 40 mg EC Tab PO SCH (09:57)
[2017-06-05] MEDS: Magnesium Oxide 400 mg Tab UD PO SCH ×2 (10:03→17:42)
[2017-06-05] MEDS: Insulin Detemir 100 units/ml Vial (Levemir) SC SCH ×2 (10:04→17:41)
[2017-06-05] MEDS: Enoxaparin 40 mg Syringe SC SCH (10:04)
--- NOTE | 2017-06-05 11:23 | PN ---
DATE: 06/04/2017 SUBJECTIVE: An 82-year-old male came in with CHF, pulmonary hypertension worsening. The patient is in telemetry floor, seems doing well. The patient seems comfortable. No distress. He slept very well. He has no new complaints. Still waiting on the medication floor. Pulmonary hypertension has been ordered and coordinated by Dr. Bustos in the pharmacy and social work. PHYSICAL EXAMINATION: GENERAL: On the 06/04/2017, he seems lying in supine position, comfortable, no distress. VITAL SIGNS: Temperature 98.6, heart rate 79, blood pressure 123/53, respirations 18, saturation 97% on nasal cannula. HEAD AND NECK: Normal. No JVD. No thyromegaly. CHEST: Clear. CARDIAC: First sound and second sound normal. Systolic murmur across the aortic area. ABDOMEN: Soft and nontender. EXTREMITIES: No edema. NEUROLOGIC: Normal. LABORATORY STUDIES: White count 10, hemoglobin 11.4, hematocrit 34.4, platelets 156. Chemistry showed sodium 133, potassium 5.1, chloride 92, bicarb 31, BUN 47, creatinine is 1.1, blood sugar 179, and calcium 9.6. AST and ALT is normal, ALT 67, alkaline phosphatase 188. IMPRESSION AND PLAN: 1. Acute congestive heart failure. Continue Lasix. Pulmonary hypertension, severe. We will continue Lasix, Dobutrex and sildenafil 20 t.i.d. Chronic obstructive pulmonary disease, continue inhaled bronchodilator. We will discontinue Solu-Medrol. At this time, he seems stable. Continue oxygen therapy and follow up clinically. 2. Status post history of aortic valve replacement, stable. No significant valvular lesion at this time. The patient seems doing well. 3. Hypercholesteremia, prostate enlargement, anxiety, depression, adult attention deficit hyperactivity disorder. 4. Generalized weakness. We will start doing some physical therapy. We will continue current medication. Continue gastrointestinal and deep vein thrombosis prophylaxis. Continue insulin coverage and has been before on Levemir and insulin coverage moderate and follow up clinically. Arya Booker MD
--- NOTE | 2017-06-05 18:00 | CP.PCM.PN ---
<Juliana Junior - Last Filed: 06/05/17 17:59> Subjective - Date & Time of Evaluation Date of Evaluation: 06/05/17 Time of Evaluation: 11:10 - Subjective Subjective: S&E at bedside, chart reviewed, no new complaints, at bedside. No acute overnight events, no respiratory distress. No N/V or abdominal pain. Objective - Vital Signs/Intake and Output Vital Signs (last 24 hours): Temp Pulse Resp BP Pulse Ox 98.1 F 71 19 121/58 L 98 06/05/17 17:23 06/05/17 17:23 06/05/17 17:23 06/05/17 17:23 06/05/17 06:00 Intake and Output: 06/05/17 06/05/17 06:59 18:59 Intake Total 307 300 Output Total 450 600 Balance -143 -300 - Medications Medications: Current Medications Atorvastatin Calcium (Lipitor) 40 mg PO DAILY [facility] Last Admin: 06/05/17 10:03 Dose: 40 mg Bupropion HCl (Wellbutrin) 75 mg PO BID [facility] Last Admin: 06/05/17 17:41 Dose: 75 mg Enoxaparin Sodium (Lovenox) 40 mg SC DAILY [facility] PRN Reason: Protocol Last Admin: 06/05/17 10:04 Dose: 40 mg Furosemide (Lasix) 40 mg IVP DAILY [facility] Last Admin: 06/05/17 10:02 Dose: 40 mg Gabapentin (Neurontin) 300 mg PO DAILY [facility] PRN Reason: Protocol Last Admin: 06/05/17 10:03 Dose: 300 mg Dobutamine HCl/Dextrose (Dobutamine/Dextrose 5% 500mg/250ml) 500 mg in 250 mls @ 5.613 mls/hr IV .Q24H PRN; Protocol; 2.5 MCG/KG/MIN PRN Reason: TITRATE PER PROTOCOL Last Admin: 06/04/17 20:54 Dose: 2.5 mcg/kg/min, 5.613 mls/hr Insulin Detemir (Levemir) 10 unit SC BID [facility] Last Admin: 06/05/17 17:41 Dose: 10 unit Insulin Human Regular (Humulin R Med) 0 units SC ACHS [facility] PRN Reason: Protocol Last Admin: 06/05/17 16:14 Dose: 5 units Ipratropium [place] (Atrovent) 0.5 mg IH [id number] [facility] Last Admin: 06/05/17 13:21 Dose: 0.5 mg Ipratropium [place] (Atrovent) 0.5 mg IH [id number] PRN PRN Reason: Shortness of Breath Levalbuterol HCl (Xopenex) 1.25 mg IH [id number] [facility] Last Admin: 06/05/17 13:21 Dose: 1.25 mg Levalbuterol HCl (Xopenex) 0.63 mg IH [id number] PRN PRN Reason: Shortness of Breath Magnesium Oxide (Mag-Ox) 400 mg PO BID [facility] Last Admin: 06/05/17 17:42 Dose: 400 mg Metoprolol Tartrate (Lopressor) 12.5 mg PO Q12 [facility] Last Admin: 06/05/17 09:58 Dose: 12.5 mg Atomoxetine Hcl [ (Strattera] 60 Mg) 60 mg PO DAILY [facility] Last Admin: 06/05/17 09:45 Dose: Not Given Pantoprazole Sodium (Protonix Ec Tab) 40 mg PO DAILY [facility] Last Admin: 06/05/17 09:57 Dose: 40 mg Sildenafil Citrate (Revatio) 20 mg PO Q8 [facility] Last Admin: 06/05/17 14:43 Dose: 20 mg Zolpidem Tartrate (Ambien) 5 mg PO HS PRN; Protocol PRN Reason: Insomnia Last Admin: 06/05/17 00:34 Dose: 5 mg - Labs Labs: 06/04/17 05:45 06/05/17 05:30 PT 15.4 SECONDS (9.4-12.5) H 05/31/17 19:20 INR 1.40 (0.93-1.08) H 05/31/17 19:20 APTT 29.6 Seconds (25.1-36.5) 05/31/17 19:20 - Constitutional Appears: No Acute Distress - Eye Exam Eye Exam: Normal appearance Pupil Exam: NORMAL ACCOMODATION - ENT Exam ENT Exam: Mucous Membranes Moist - Respiratory Exam Respiratory Exam: Decreased Breath Sounds, Wheezes, NORMAL BREATHING PATTERN. absent: Respiratory Distress - Cardiovascular Exam Cardiovascular Exam: +S1, +S2 - GI/Abdominal Exam GI & Abdominal Exam: Distended, Soft, Normal Bowel Sounds. absent: Guarding, Tenderness, Rebound - Extremities Exam Extremities Exam: absent: Calf Tenderness - Neurological Exam Neurological Exam: Alert, Awake, Oriented x3 - Skin Skin Exam: Dry, Warm Assessment and Plan - Assessment and Plan (Free Text) Assessment: Assessment: elevated LFTs, improving Severe pulmonary hypertension Valvular heart disease, status post aortic and mitral valve replacements CHF Cholelithiasis Plan: Continue diet as tolerated Continue PPI Continue to trend LFTs give miralax daily, hold for BM>2/day As per cardiology Seen and discussed with Dr. Fraser. <Karly Fraser V - Last Filed: 06/07/17 01:11> Objective - Vital Signs/Intake and Output Vital Signs (last 24 hours): Temp Pulse Resp BP Pulse Ox 98.2 F 82 18 119/53 L 98 06/06/17 23:10 06/06/17 23:37 06/06/17 23:10 06/06/17 23:37 06/06/17 05:57 - Medications Medications: Current Medications Atorvastatin Calcium (Lipitor) 40 mg PO DAILY [facility] Last Admin: 06/06/17 10:38 Dose: 40 mg Bupropion HCl (Wellbutrin) 75 mg PO BID [facility] Last Admin: 06/06/17 18:38 Dose: 75 mg Enoxaparin Sodium (Lovenox) 40 mg SC DAILY [facility] PRN Reason: Protocol Last Admin: 06/06/17 10:39 Dose: 40 mg Furosemide (Lasix) 40 mg IVP DAILY [facility] Last Admin: 06/06/17 10:38 Dose: 40 mg Gabapentin (Neurontin) 300 mg PO DAILY [facility] PRN Reason: Protocol Last Admin: 06/06/17 10:34 Dose: 300 mg Milrinone Lactate/Dextrose (Primacor 20mg/100ml D5w) 100 mls @ 8.057 mls/hr IV .[id number] PRN; Protocol; 0.375 MCG/KG/MIN PRN Reason: TITRATE PER MD ORDER Last Admin: 06/06/17 17:22 Dose: 0.375 mcg/kg/min, 8.057 mls/hr Insulin Detemir (Levemir) 10 unit SC BID [facility] Last Admin: 06/06/17 18:41 Dose: Not Given Insulin Human Regular (Humulin R Med) 0 units SC ACHS [facility] PRN Reason: Protocol Last Admin: 06/06/17 16:35 Dose: Not Given Ipratropium [place] (Atrovent) 0.5 mg IH [id number] [facility] Last Admin: 06/06/17 13:42 Dose: 0.5 mg Ipratropium [place] (Atrovent) 0.5 mg IH [id number] PRN PRN Reason: Shortness of Breath Levalbuterol HCl (Xopenex) 1.25 mg IH [id number] [facility] Last Admin: 06/06/17 19:34 Dose: Not Given Levalbuterol HCl (Xopenex) 0.63 mg IH [id number] PRN PRN Reason: Shortness of Breath Last Admin: 06/06/17 19:33 Dose: 0.63 mg Magnesium Oxide (Mag-Ox) 400 mg PO BID [facility] Last Admin: 06/06/17 18:38 Dose: 400 mg Metoprolol Tartrate (Lopressor) 12.5 mg PO Q12 [facility] Last Admin: 06/06/17 23:37 Dose: 12.5 mg Atomoxetine Hcl [ (Strattera] 60 Mg) 60 mg PO DAILY [facility] Last Admin: 06/06/17 11:06 Dose: Not Given Pantoprazole Sodium (Protonix Ec Tab) 40 mg PO DAILY [facility] Last Admin: 06/06/17 10:38 Dose: 40 mg Polyethylene Glycol (Miralax) 17 gm PO DAILY [facility] Last Admin: 06/06/17 10:39 Dose: 17 gm Sildenafil Citrate (Revatio) 20 mg PO Q8 [facility] Last Admin: 06/06/17 23:39 Dose: 20 mg Zolpidem Tartrate (Ambien) 5 mg PO HS PRN; Protocol PRN Reason: Insomnia Last Admin: 06/06/17 23:36 Dose: 5 mg - Labs Labs: 06/04/17 05:45 06/05/17 05:30 PT 15.4 SECONDS (9.4-12.5) H 05/31/17 19:20 INR 1.40 (0.93-1.08) H 05/31/17 19:20 APTT 29.6 Seconds (25.1-36.5) 05/31/17 19:20 Attending/Attestation - Attestation I have personally seen and examined this patient.: No I have fully participated in the care of the patient.: No I have reviewed all pertinent clinical information, including history, physical exam and plan: Yes Notes (Text): This is an addendum to GI progress report dictated by Juliana Junior APN.The patient was seen and examined earlier. Medical records, lab studies, imagings were reviewed. Last 24 hours events reviewed. Agreed with the above treatment plan as outlined in Juliana Junior APN's notes the with the addition of the following abdomen soft no masses no tenderness History of gallstones CV normal LFTs downward trend History of pulmonary hypertension History of valvular disease status post I AVR and mitral valve repair FOLLOW LFT 06/07/17 01:02
--- NOTE | 2017-06-05 22:15 | PN ---
DATE: 06/05/2017 PULMONARY PROGRESS NOTE REFERRING PHYSICIAN: Arya Booker MD SUBJECTIVE: He sleeps side of the bed, feels better. Not much cough. No sputum production. No nausea. No vomiting, diarrhea, leg pain or leg swelling. OBJECTIVE: GENERAL: In no acute distress. VITAL SIGNS: Temperature is 98, heart rate is 71, respiratory rate is 20, blood pressure is 119/52, and pulse oximetry 98% on 3 liters nasal cannula. HEENT: Moist mucous membranes. Crowded airway. NECK: Supple. No JVD. LUNGS: Has a prolonged expiratory phase. No wheezing. HEART: S1 and S2. ABDOMEN: Soft and nontender. No organomegaly. EXTREMITIES: There is no edema. NEUROLOGIC: Awake, alert, and follows simple commands. MEDICATIONS: He is on Ambien 5 mg at bedtime p.r.n., Atrovent inhalation q. 6 hours, dobutamine 2.5 mcg/kg/minute, Lasix 40 mg daily, Levemir 10 units subcutaneously twice a day, Lipitor 12.5 mg twice a daily, Lovenox 40 mg daily, magnesium oxide 400 mg twice a day, Neurontin 300 mg daily, Protonix 40 mg daily, Revatio 20 mg q. 8 hours, Wellbutrin 75 mg twice a day, and Xopenex inhaled q. 6 hours. LABORATORY DATA: Shows hemoglobin yesterday 11.4. Sodium 131, potassium 4.5, chloride 92, bicarbonate 33, BUN 44, creatinine 1.1, glucose 76, calcium is 9.0. IMPRESSION AND PLAN: Cardiomyopathy with severe pulmonary hypertension, has a cardiac asthma, hypertension, coronary artery disease, history of coronary artery bypass surgery, and aortic valve replacement. Pulmonary point of view, doing okay. Continue dobutamine. Continue Revatio, Lasix. Continue supplement oxygen. Continue BiPAP use. configuration management architect note reviewed and noted pharmacy is working to get pulmonary hypertensive medication. Order bed to chair. Start some physical therapy. Thank you and we will follow with you. Guru Bustos MD
--- NOTE | 2017-06-05 23:06 | PN ---
DATE: 06/05/2017 LOCATION: The patient in room 272, bed 1. REASON FOR CONSULTATION: Followup severe pulmonary hypertension, one-vessel CABG, aortic valve replacement, mitral valve repair, status post right heart catheterization consistent with severe pulmonary hypertension, episode of earlier CHF. SUBJECTIVE: Patient is lying flat in bed without chest pain. He states his shortness of breath is improving. Denies any palpitation. PHYSICAL EXAMINATION VITAL SIGNS: Blood pressure 121/58, respirations 19, pulse 71, temperature 98.1. HEENT: Head is normocephalic. Eyes; pupils are normal. Conjunctivae slightly pale. NECK: JVP low. Carotid equal. THORAX: AP diameter normal. LUNGS: Clear. CARDIOVASCULAR: S1 and S2. ABDOMEN: Soft, no tenderness. No organomegaly. Bowel sounds normal. EXTREMITIES: No clubbing. No cyanosis. LABORATORY DATA: WBC 10.0, hemoglobin 11.4, hematocrit 34.4, platelet 156. Sodium 131, potassium 4.5, BUN 44, creatinine 1.1. DIAGNOSES: Severe pulmonary hypertension, PA pressure of 103 and right heart catheterization, preserved LV function with ejection fraction of 65% by echo. By echo, PA pressure was 151, [id number] aortic regurgitation status post bioprosthetic aortic valve replacement, severe pulmonary hypertension, diabetes, hypertension, hyperlipidemia status post aortic valve replacement, status post mitral valve repair, one-vessel coronary artery bypass surgery radial artery to RCA. PLAN: Patient on Atrovent nebulizer therapy, also on dobutamine drip, furosemide 40 mg IV daily, Lipitor 40 daily, metoprolol 12.5 mg q. 12 hours, Lovenox 40 mg subcutaneously daily, magnesium oxide 400 mg b.i.d., Neurontin 300 mg p.o. daily, Protonix 40 mg daily, Revatio 20 mg p.o. q. 8 hours, Wellbutrin 75 mg b.i.d., Xopenex hand nebulizer therapy p.r.n. We will follow. Guru Khan MD
[2017-06-06] MEDS: Insulin Reg-MEDIUM-Coverage SC SCH ×5 (00:01→16:35)
[2017-06-06] MEDS: Ipratropium 0.02% Inhal Soln (0.5 mg/2.5 ml) UD IH SCH ×4 (02:13→19:35)
[2017-06-06] MEDS: Levalbuterol 1.25 MG/3 ML Inhal Soln UD IH SCH ×4 (02:13→19:34)
[2017-06-06] MEDS: Sildenafil 20 MG TAB PO SCH ×3 (06:29→23:39)
[2017-06-06] MEDS: Magnesium Oxide 400 mg Tab UD PO SCH ×2 (10:34→18:38)
[2017-06-06] MEDS: Pantoprazole 40 mg EC Tab PO SCH (10:38)
[2017-06-06] MEDS: POLYETHYLENE GLYCOL 3350 17 GM/Dose PACKET PO SCH (10:39)
[2017-06-06] MEDS: Enoxaparin 40 mg Syringe SC SCH (10:39)
--- NOTE | 2017-06-06 10:39 | PN ---
DATE: 06/06/2017 REASON FOR CONSULTATION: Cardiac evaluation, severe pulmonary hypertension, one-vessel CABG, AVR, MVR, status post right heart catheterization consistent with severe pulmonary hypertension. SUBJECTIVE: The patient denies any chest pain or shortness of breath. Feels better. Still feels short of breath when walking, but at rest feels better. OBJECTIVE: GENERAL: Not in apparent distress. Sitting at the bedside. VITAL SIGNS: As follows, temperature afebrile, heart rate 65, blood pressure 125/54. HEENT: PERRLA. Extraocular muscles intact. NECK: Supple. No carotid bruits or thyromegaly. CHEST: Clear to auscultation. HEART: S1 and S2, regular. ABDOMEN: Soft. EXTREMITIES: Clubbing and cyanosis negative. LABORATORY DATA: Blood workup as follows: WBC 10, hemoglobin 11.4, hematocrit 34.4, platelet count 156. Chemistry shows sodium 131, potassium 4.5, chloride 92, carbon dioxide 33, anion gap of 11, BUN 44, creatinine 1.1. IMPRESSION: Preserved left ventricular function, ejection fraction 65%, severe pulmonary hypertension, pulmonary artery pressure 103 by right heart catheterization, pulmonary vascular resistance 10.6 Wood unit. As mentioned, preserved left ventricular function, ejection fraction 65% by echo. Pulmonary artery pressure 151 by echo, [id number] aortic regurgitation, status post bioprosthetic aortic valve replacement, status post mitral valve repair, one-vessel bypass, diabetes, hypertension, hyperlipidemia, right ventricular hypokinesis. RECOMMENDATIONS: Continue Revatio. Prefer to give Primacor rather than Dobutrex because risk of having arrhythmia is more the patient can go into AFib and more difficult to control and the patient may need later anticoagulation, includes an AFib, so we will suggest to switch over to Primacor, but I will leave this issue for Pulmonary to decide because Dobutrex started for pulmonary hypertension. Continue at this time Revatio that is sildenafil. Consider bosentan antagonist, Tracleer or Flolan or prostacyclin inhalation. Further recommendation as per Pulmonary. CVS status is stable. Continue gentle diuretics. Keep a negative fluid balance helping breathing. We will follow with you. Thank you Dr. Booker for providing us the opportunity in taking care of Emory Arboleda. We will follow with you. Guru Sosa MD
[2017-06-06] MEDS: Insulin Detemir 100 units/ml Vial (Levemir) SC SCH ×2 (10:43→18:41)
--- NOTE | 2017-06-06 14:34 | CP.PCM.PN ---
<Juliana Junior - Last Filed: 06/06/17 14:32> Subjective - Date & Time of Evaluation Date of Evaluation: 06/06/17 Time of Evaluation: 09:50 - Subjective Subjective: Seen and examined at the bedside earlier today, the chart reviewed. No acute overnight events per nursing staff. Patient denies nausea, vomiting, or abdominal pain. Reports no BM 2 days. Tolerating oral intake. No respiratory distress. Objective - Vital Signs/Intake and Output Vital Signs (last 24 hours): Temp Pulse Resp BP Pulse Ox 97.1 F L 94 H 19 138/56 L 98 06/06/17 12:00 06/06/17 12:00 06/06/17 12:00 06/06/17 12:00 06/06/17 05:57 Intake and Output: 06/06/17 06/06/17 06:59 18:59 Intake Total 307 Output Total 950 Balance -643 - Medications Medications: Current Medications Atorvastatin Calcium (Lipitor) 40 mg PO DAILY [facility] Last Admin: 06/06/17 10:38 Dose: 40 mg Bupropion HCl (Wellbutrin) 75 mg PO BID [facility] Last Admin: 06/06/17 10:38 Dose: 75 mg Enoxaparin Sodium (Lovenox) 40 mg SC DAILY [facility] PRN Reason: Protocol Last Admin: 06/06/17 10:39 Dose: 40 mg Furosemide (Lasix) 40 mg IVP DAILY [facility] Last Admin: 06/06/17 10:38 Dose: 40 mg Gabapentin (Neurontin) 300 mg PO DAILY [facility] PRN Reason: Protocol Last Admin: 06/06/17 10:34 Dose: 300 mg Insulin Detemir (Levemir) 10 unit SC BID [facility] Last Admin: 06/06/17 10:43 Dose: Not Given Insulin Human Regular (Humulin R Med) 0 units SC ACHS [facility] PRN Reason: Protocol Last Admin: 06/06/17 12:32 Dose: 3 units Ipratropium [place] (Atrovent) 0.5 mg IH [id number] [facility] Last Admin: 06/06/17 13:42 Dose: 0.5 mg Ipratropium [place] (Atrovent) 0.5 mg IH [id number] PRN PRN Reason: Shortness of Breath Levalbuterol HCl (Xopenex) 1.25 mg IH [id number] [facility] Last Admin: 06/06/17 13:42 Dose: 1.25 mg Levalbuterol HCl (Xopenex) 0.63 mg IH [id number] PRN PRN Reason: Shortness of Breath Magnesium Oxide (Mag-Ox) 400 mg PO BID [facility] Last Admin: 06/06/17 10:34 Dose: 400 mg Metoprolol Tartrate (Lopressor) 12.5 mg PO Q12 [facility] Last Admin: 06/06/17 10:35 Dose: 12.5 mg Atomoxetine Hcl [ (Strattera] 60 Mg) 60 mg PO DAILY [facility] Last Admin: 06/06/17 11:06 Dose: Not Given Pantoprazole Sodium (Protonix Ec Tab) 40 mg PO DAILY [facility] Last Admin: 06/06/17 10:38 Dose: 40 mg Polyethylene Glycol (Miralax) 17 gm PO DAILY [facility] Last Admin: 06/06/17 10:39 Dose: 17 gm Sildenafil Citrate (Revatio) 20 mg PO Q8 [facility] Last Admin: 06/06/17 13:37 Dose: 20 mg Zolpidem Tartrate (Ambien) 5 mg PO HS PRN; Protocol PRN Reason: Insomnia Last Admin: 06/05/17 22:50 Dose: 5 mg - Labs Labs: 06/04/17 05:45 06/05/17 05:30 PT 15.4 SECONDS (9.4-12.5) H 05/31/17 19:20 INR 1.40 (0.93-1.08) H 05/31/17 19:20 APTT 29.6 Seconds (25.1-36.5) 05/31/17 19:20 - Constitutional Appears: No Acute Distress - Eye Exam Eye Exam: Normal appearance. absent: Scleral icterus - ENT Exam ENT Exam: Mucous Membranes Moist - Neck Exam Neck Exam: Normal Inspection - Respiratory Exam Respiratory Exam: Decreased Breath Sounds, Wheezes, NORMAL BREATHING PATTERN. absent: Respiratory Distress - Cardiovascular Exam Cardiovascular Exam: +S1, +S2 - GI/Abdominal Exam GI & Abdominal Exam: Soft, Normal Bowel Sounds. absent: Guarding, Tenderness, Organomegaly, Rebound - Extremities Exam Extremities Exam: absent: Calf Tenderness, Pedal Edema - Neurological Exam Neurological Exam: Alert, Awake, Oriented x3 - Skin Skin Exam: Dry, Warm Assessment and Plan - Assessment and Plan (Free Text) Assessment: Assessment: Elevated LFTs, improving Severe pulmonary hypertension Valvular heart disease, status post aortic and mitral valve replacements CHF Cholelithiasis Plan: Continue diet as tolerated Continue PPI On Lovenox Continue to trend LFTs continue miralax daily, hold for BM>2/day, if no BM can increase twice a day till have BM OFF dobutamine drip As per cardiology Seen and discussed with Dr. Fraser. <Karly Fraser V - Last Filed: 06/07/17 00:59> Objective - Vital Signs/Intake and Output Vital Signs (last 24 hours): Temp Pulse Resp BP Pulse Ox 98.2 F 82 18 119/53 L 98 06/06/17 23:10 06/06/17 23:37 06/06/17 23:10 06/06/17 23:37 06/06/17 05:57 - Medications Medications: Current Medications Atorvastatin Calcium (Lipitor) 40 mg PO DAILY [facility] Last Admin: 06/06/17 10:38 Dose: 40 mg Bupropion HCl (Wellbutrin) 75 mg PO BID [facility] Last Admin: 06/06/17 18:38 Dose: 75 mg Enoxaparin Sodium (Lovenox) 40 mg SC DAILY [facility] PRN Reason: Protocol Last Admin: 06/06/17 10:39 Dose: 40 mg Furosemide (Lasix) 40 mg IVP DAILY [facility] Last Admin: 06/06/17 10:38 Dose: 40 mg Gabapentin (Neurontin) 300 mg PO DAILY [facility] PRN Reason: Protocol Last Admin: 06/06/17 10:34 Dose: 300 mg Milrinone Lactate/Dextrose (Primacor 20mg/100ml D5w) 100 mls @ 8.057 mls/hr IV .[id number] PRN; Protocol; 0.375 MCG/KG/MIN PRN Reason: TITRATE PER MD ORDER Last Admin: 06/06/17 17:22 Dose: 0.375 mcg/kg/min, 8.057 mls/hr Insulin Detemir (Levemir) 10 unit SC BID [facility] Last Admin: 06/06/17 18:41 Dose: Not Given Insulin Human Regular (Humulin R Med) 0 units SC ACHS [facility] PRN Reason: Protocol Last Admin: 06/06/17 16:35 Dose: Not Given Ipratropium [place] (Atrovent) 0.5 mg IH [id number] [facility] Last Admin: 06/06/17 13:42 Dose: 0.5 mg Ipratropium [place] (Atrovent) 0.5 mg IH [id number] PRN PRN Reason: Shortness of Breath Levalbuterol HCl (Xopenex) 1.25 mg IH [id number] [facility] Last Admin: 06/06/17 19:34 Dose: Not Given Levalbuterol HCl (Xopenex) 0.63 mg IH [id number] PRN PRN Reason: Shortness of Breath Last Admin: 06/06/17 19:33 Dose: 0.63 mg Magnesium Oxide (Mag-Ox) 400 mg PO BID [facility] Last Admin: 06/06/17 18:38 Dose: 400 mg Metoprolol Tartrate (Lopressor) 12.5 mg PO Q12 [facility] Last Admin: 06/06/17 23:37 Dose: 12.5 mg Atomoxetine Hcl [ (Strattera] 60 Mg) 60 mg PO DAILY [facility] Last Admin: 06/06/17 11:06 Dose: Not Given Pantoprazole Sodium (Protonix Ec Tab) 40 mg PO DAILY [facility] Last Admin: 06/06/17 10:38 Dose: 40 mg Polyethylene Glycol (Miralax) 17 gm PO DAILY [facility] Last Admin: 06/06/17 10:39 Dose: 17 gm Sildenafil Citrate (Revatio) 20 mg PO Q8 [facility] Last Admin: 06/06/17 23:39 Dose: 20 mg Zolpidem Tartrate (Ambien) 5 mg PO HS PRN; Protocol PRN Reason: Insomnia Last Admin: 06/06/17 23:36 Dose: 5 mg - Labs Labs: 06/04/17 05:45 06/05/17 05:30 PT 15.4 SECONDS (9.4-12.5) H 05/31/17 19:20 INR 1.40 (0.93-1.08) H 05/31/17 19:20 APTT 29.6 Seconds (25.1-36.5) 05/31/17 19:20 Attending/Attestation - Attestation I have personally seen and examined this patient.: Yes I have fully participated in the care of the patient.: Yes I have reviewed all pertinent clinical information, including history, physical exam and plan: Yes Notes (Text): This is an addendum to GI progress report dictated by Juliana Junior APN.The patient was seen and examined earlier. Medical records, lab studies, imagings were reviewed. Last 24 hours events reviewed. Agreed with the above treatment plan as outlined in Juliana Junior APN's notes the with the addition of the following Denies any abdominal pain Abdomen soft no tenderness Follow-up LFT 06/07/17 00:58
[2017-06-06] MEDS: Milrinone 20mg/100ml D5W 100 ML IV PRN (17:22)
[2017-06-06] MEDS: Levalbuterol 0.63 MG/3 ML Inhal Soln UD IH PRN (19:33)
--- NOTE | 2017-06-06 20:28 | PN ---
DATE: 06/06/2017 PULMONARY PROGRESS NOTE REFERRING PHYSICIAN: Arya Booker MD SUBJECTIVE: The patient is sitting side of the bed. Night was unremarkable. Feels much better. Apparently this morning, his misunderstanding his dobutamine was discontinued. There is no nausea. No vomiting. No diarrhea. No leg pain or leg swelling. OBJECTIVE: GENERAL: In no acute distress. VITAL SIGNS: Temperature is 98, heart rate is 94, respiratory rate is 20, blood pressure 138/56, pulse ox is 98% on nasal cannula. HEENT: Moist mucous membranes. Crowded airway. NECK: Supple. No JVD. LUNGS: Has a fair airflow with few rhonchi. HEART: S1 and S2. ABDOMEN: Soft, nontender. No organomegaly. EXTREMITIES: There is no edema. NEUROLOGICALLY: Awake and follow simple commands. MEDICATIONS: He is on Ambien 5 mg at bedtime p.r.n., Atrovent 0.5 mg q. 6 hours, Lasix 40 mg daily, Lipitor 20 mg daily, metoprolol tartrate 12.5 mg twice a day, Lovenox 40 mg daily, magnesium oxide 400 mg twice a day, Miralax 17 g daily, gabapentin 300 mg daily, Protonix 40 mg daily, Revatio 20 mg q. 8 hours, Wellbutrin 75 mg twice a day, Xopenex inhaled q. 6 hours. LABORATORY DATA: Reviewed. Blood sugar this morning was 144. IMPRESSION AND PLAN: Severe pulmonary hypertension with cardiac asthma with respiratory failure. Since started on dobutamine he did very well. No more steroid use or nebulizer treatment and comfortable room air. Awaiting for approval for his endothelin inhibitor or Revatio and prostacyclin. For now continue helping right heart failure. Case discussed with nursing staff. The patient and his family understand the risk of pressures especially arrhythmia, but clinically if we do not use the Pulmicort or dobutamine it is a very risk of high risk of . Thank you and we will follow with you. Guru Bustos MD
[2017-06-07] MEDS: Ipratropium 0.02% Inhal Soln (0.5 mg/2.5 ml) UD IH SCH ×2 (01:45→21:07)
[2017-06-07] MEDS: Levalbuterol 1.25 MG/3 ML Inhal Soln UD IH SCH ×2 (01:45→21:08)
[2017-06-07] MEDS: Milrinone 20mg/100ml D5W 100 ML IV PRN ×3 (02:55→21:54)
--- NOTE | 2017-06-07 03:35 | PN ---
DATE: 06/05/2017 SUBJECTIVE: The patient is clinically stable, comfortable, in no distress, still on IV dobutamine. He has no new complaints, still waiting on the medication for pulmonary hypertension. PHYSICAL EXAMINATION: VITAL SIGNS: Temperature 98, heart rate 78, blood pressure 119/52, respiratory rate 20. HEAD AND NECK: Normal. No JVD. No thyromegaly. CHEST: Clear. Good air entry. CARDIAC: First and second sounds normal. There is systolic murmur in the aortic area. ABDOMEN: Soft, nontender. EXTREMITIES: No edema. NEUROLOGIC: Normal. LABORATORY STUDIES: Blood sugar 150 to 200 range. His sodium 131, potassium 4.5, chloride 92, bicarb 33, BUN 44, creatinine 1.1, blood sugar 76, and calcium 9. ASSESSMENT AND PLAN: 1. Acute congestive heart failure. Continue Lasix. The patient has wedge pressure of 30s. Continue dobutamine. Continue IV Lasix. 2. Severe pulmonary hypertension. The patient has pulmonary pressure almost of 90s and above. We will continue Lasix. Continue IV Dobutrex (dobutamine) with nebulizer treatments and continue current therapy with medication for pulmonary hypertension as per Dr. Bustos, the pharmacy working on getting get approved and authorized. 3. Chronic obstructive pulmonary disease. Obstructive sleep apnea. Continue CPAP. Continue inhaled bronchodilators. The patient is off steroids now and we will continue oxygen therapy. 4. Diabetes. Continue insulin coverage as it is. The patient is getting insulin Levemir 10 units b.i.d. for the insulin coverage in moderate medium scale. 5. Chronic back pain, chronic insomnia, depression, hypercholesterolemia, and generalized weakness. Continue medicines and we are going to do physical therapy. Arya Booker MD
[2017-06-07] MEDS: Sildenafil 20 MG TAB PO SCH ×3 (06:38→21:53)
[2017-06-07] MEDS: Insulin Reg-MEDIUM-Coverage SC SCH ×3 (08:03→16:24)
--- NOTE | 2017-06-07 08:04 | PN ---
DATE: 06/06/2017 SUBJECTIVE: The patient is sitting, eating, no complaints, asking about when he is going home, explained to him about waiting for his medications and currently, he is on Lasix and dobutamine drip, which will be changed into IV milrinone. PHYSICAL EXAMINATION: VITAL SIGNS: Temperature 98.4, heart rate 65, blood pressure 125/54, respiratory rate 19, and saturations 98%. HEAD AND NECK: Normal. No JVD. No thyromegaly. CHEST: Clear. Good air entry. CARDIAC: First sound and second sound normal. There is systolic murmur across the aortic area. ABDOMEN: Soft and nontender. EXTREMITIES: No edema. NEUROLOGIC: Normal. LABORATORY DATA: His laboratory noted for blood sugar 150 range to 200 maximum, otherwise, negative. IMPRESSION AND PLAN: 1. Severe pulmonary hypertension. Continue intravenous milrinone for now. Continue Lasix intravenous and Revatio 20 mg t.i.d. and oxygen therapy. 2. Congestive heart failure, left sided, high wedge pressure. Continue Lasix intravenous and continue current therapy. 3. Chronic obstructive pulmonary disease exacerbation, which seems resolved and we will discontinue, he is off any steroids at this time. Continue inhaled bronchodilators. Continue oxygen and also for his obstructive sleep apnea, the patient is currently taking continuous positive airway pressure machine. 4. Hypercholesterolemia and diabetes, on insulin. Continue Levemir and moderate coverage Humalog, tolerating as well. We may consider putting the patient back on metformin. Patient also has chronic back pain and depression. Continue Wellbutrin. Continue Neurontin and for his attention deficit syndrome, continue Strattera plus Ambien for chronic insomnia. Continue current therapy. Start physical therapy as tolerated. The patient seems stable. Continue gastrointestinal and deep vein thrombosis prophylaxis. The patient currently also getting Lovenox 40 mg subQ daily and he is getting Protonix 40 mg p.o. daily. Arya Booker MD
[2017-06-07] MEDS: Enoxaparin 40 mg Syringe SC SCH (09:33)
[2017-06-07] MEDS: Magnesium Oxide 400 mg Tab UD PO SCH ×2 (09:35→17:27)
[2017-06-07] MEDS: Pantoprazole 40 mg EC Tab PO SCH (09:35)
[2017-06-07] MEDS: Insulin Detemir 100 units/ml Vial (Levemir) SC SCH (09:35)
[2017-06-07] MEDS: POLYETHYLENE GLYCOL 3350 17 GM/Dose PACKET PO SCH ×2 (09:36→15:20)
[2017-06-07] MEDS: Nystatin 100,000 Units/gm Topical Pow(15 gm) TOP SCH (18:28)
--- NOTE | 2017-06-07 19:38 | PN ---
PULMONARY PROGRESS NOTE DATE: 06/07/2017 REFERRING PHYSICIAN: Arya Booker MD SUBJECTIVE: He is lying in the bed, just come back from the bathroom, has a lot of trouble walking, very deconditioned, just gets short of breath, but overall feels better. No headache. No rhinitis. No nausea. No vomiting. No diarrhea. No leg pain or leg swelling. OBJECTIVE: GENERAL: In no acute distress. VITAL SIGNS: Temperature is 98, heart rate is 91, respiratory rate is 18, blood pressure 126/53 and pulse oximetry is 92% on 3 L nasal cannula. HEENT: Moist mucous membranes. Crowded airway. Mallampati score is IV. NECK: Supple. No JVD. LUNGS: Has a few crackles with few rhonchi. HEART: S1 and S2. ABDOMEN: Soft and nontender. No organomegaly. EXTREMITIES: There is no edema. NEUROLOGIC: Awake and alert. Follow simple commands. MEDICATIONS: He is on Ambien 5 mg at bedtime p.r.n., Atrovent inhaled q. 6 hours, Lasix 40 mg IV daily, Levemir 10 units subq twice a day, Lipitor 40 mg daily, metoprolol tartrate 12.5 mg twice a day, Lovenox 40 mg daily, magnesium oxide 400 mg twice a day, Miralax 17 g daily, Neurontin 300 mg daily, Pulmicort inhaled twice a day, on IV Primacor, Protonix 40 mg daily, Revatio 20 mg q. 8 hours, Wellbutrin 75 mg twice a day and Xopenex inhaled q. 6 hours. LABORATORY DATA: Reviewed. Blood sugar today is 83. IMPRESSION AND PLAN: Severe pulmonary hypertension, right heart failure, cardiac asthma, severely decondition, history of valvular heart disease. Case discussed with the patient's at bedside. All the questions answered. Spoke to nursing staff. Continue Primacor. Continue Revatio. Gastric prophylaxis. We will order physical therapy. Out of bed to chair as tolerated. Awaiting for approval for Letairis and prostacyclin for severe pulmonary hypertension. Thank you and we will follow with you. Guru Bustos MD [facility] # [id number]
[2017-06-07] MEDS: Insulin Reg-LOW-Coverage SC SCH (21:51)
[2017-06-08] MEDS: Levalbuterol 1.25 MG/3 ML Inhal Soln UD IH SCH ×3 (02:10→14:44)
[2017-06-08] MEDS: Ipratropium 0.02% Inhal Soln (0.5 mg/2.5 ml) UD IH SCH ×4 (02:10→22:00)
[2017-06-08] MEDS: Sildenafil 20 MG TAB PO SCH ×3 (05:11→21:15)
[2017-06-08] MEDS: Insulin Reg-LOW-Coverage SC SCH ×4 (07:36→21:48)
--- NOTE | 2017-06-08 08:15 | PN ---
DATE: SUBJECTIVE: This patient was seen and evaluated earlier today. The patient was complaining of some constipation. No complaints of any abdominal pain. PHYSICAL EXAMINATION VITAL SIGNS: Afebrile. Blood pressure is 115/54, pulse is 74, respiration is 18. HEENT: Atraumatic. Anicteric. NECK: Supple. HEART: S1, S2. LUNGS: Bilateral air entry present. ABDOMEN: Soft. There is no tenderness. EXTREMITIES: No cyanosis, no clubbing. NEUROLOGIC: Alert, oriented, moves all the extremities. LABORATORY DATA: No recent labs. ASSESSMENT AND PLAN: This is an 82-year-old patient with shortness of breath, severe pulmonary hypertension secondary to the valvular disease, has elevated LFTs, history of gallstones, CBD normal. Elevated LFT is probably due to hepatic congestion, which has been showing significant improvement. The patient has been on Miralax for p.r.n. basis for constipation. We recommended to continue the Miralax as needed for constipation. Thank you very much for allowing us to participate in the care of the patient. Karly Fraser MD
[2017-06-08] MEDS: Magnesium Oxide 400 mg Tab UD PO SCH ×2 (09:40→17:20)
[2017-06-08] MEDS: Enoxaparin 40 mg Syringe SC SCH (09:41)
[2017-06-08] MEDS: Nystatin 100,000 Units/gm Topical Pow(15 gm) TOP SCH ×2 (09:41→17:24)
[2017-06-08] MEDS: POLYETHYLENE GLYCOL 3350 17 GM/Dose PACKET PO SCH (09:41)
[2017-06-08] MEDS: Pantoprazole 40 mg EC Tab PO SCH (09:41)
[2017-06-08] MEDS: Insulin Detemir 100 units/ml Vial (Levemir) SC SCH (09:43)
[2017-06-08 13:15] LABS: HEMOGLOBIN 10.9 g/dL (14.0-18.0); MEAN CELL VOLUME 93.7 fl (80.0-105.0); MEAN CORPUSCULAR HEMOGLOBIN 31.2 pg (25.0-35.0); MEAN CORPUSCULAR HGB CONC 33.3 g/dl (31.0-37.0); MEAN PLATELET VOLUME 10.7 fl (7.0-11.0); RBC 3.49 10^6/uL (3.5-6.1); RED CELL DISTRIBUTION WIDTH 13.7 % (11.5-14.5); WHITE BLOOD COUNT 5.6 10^3/ul (4.5-11.0)
[2017-06-08 13:33] LABS: BLOOD UREA NITROGEN 31 mg/dL (7-21); CALCIUM 8.8 mg/dL (8.4-10.5); GFR AFRICAN-AMERICAN > 60; GFR NON-AFRICAN AMERICAN > 60
--- NOTE | 2017-06-08 17:08 | CP.PCM.CON ---
<Danica Beltran - Last Filed: 06/08/17 17:05> History of Present Illness - History of Present Illness History of Present Illness: Podiatry Consult Note - Dr. Kendall 82 year old male patient and evaluated at bedside for right foot 5th digit pain. Patient hemodynamically stable and NAD. present at bedside. Patient reports pain to his right 5th digit that has persisted for months; unknown how pain started. Of note, patient was admitted recently in April and podiatry was consulted to same problem. Patient states patient was prescribed terbinafine cream to put in webspace. No other pedal complaints at this time. Denies N/V/F/D/C/SOB/calf pain. Review of Systems - Review of Systems All systems: reviewed and no additional remarkable complaints except (as per HPI ) Past Patient History - Infectious Disease Hx of Infectious Diseases: None - Tetanus Immunizations Tetanus Immunization: Unknown - Past Medical History & Family History Past Medical History?: Yes - Past Social History Smoking Status: Never Smoked - CARDIAC Hx Congestive Heart Failure: Yes Hx Hypertension: Yes - PULMONARY Hx Chronic Obstructive Pulmonary Disease (COPD): Yes - NEUROLOGICAL HX Cerebrovascular Accident: Yes - HEENT Hx HEENT Problems: Yes Hx Glaucoma: Yes - RENAL Hx Chronic Kidney Disease: No - ENDOCRINE/METABOLIC Hx Diabetes Mellitus Type 2: Yes - HEMATOLOGICAL/ONCOLOGICAL Hx Blood Disorders: Yes (blood transfusion) - INTEGUMENTARY Hx Dermatological Problems: Yes Other/Comment: BILATERAL LE EDEMA MORE TO LEFT WITH DARKENED BROWN SKIN DISCOLORATION. - MUSCULOSKELETAL/RHEUMATOLOGICAL Hx Falls: Yes - GASTROINTESTINAL Hx Gastrointestinal Disorders: Yes (CONSTIPATION) Hx Gastroesophageal Reflux: Yes - GENITOURINARY/GYNECOLOGICAL Hx Genitourinary Disorders: Yes (ERECTILE DYSFUNCTION,BPH) Hx Prostate Problems: Yes - PSYCHIATRIC Hx Psychophysiologic Disorder: Yes (MEMORY LOSS) Hx Anxiety: Yes Hx Depression: Yes Hx Substance Use: No - SURGICAL HISTORY Hx Open Heart Surgery: Yes (CABG 1999) Hx Valve Replacement: Yes (2006) - ANESTHESIA Hx Anesthesia: Yes Hx Anesthesia Reactions: No Hx Malignant Hyperthermia: No Meds Allergies/Adverse Reactions: Allergies Allergy/AdvReac Type Severity Reaction Status Date / Time No Known Allergies Allergy Verified 05/20/17 19:36 - Medications Medications: Current Medications Atorvastatin Calcium (Lipitor) 40 mg PO DAILY [facility] Last Admin: 06/08/17 09:40 Dose: 40 mg Bupropion HCl (Wellbutrin) 75 mg PO BID [facility] Last Admin: 06/08/17 09:52 Dose: 75 mg Enoxaparin Sodium (Lovenox) 40 mg SC DAILY [facility] PRN Reason: Protocol Last Admin: 06/08/17 09:41 Dose: 40 mg Fluticasone Propionate (Flonase) 1 actuation NS DAILY [facility] Furosemide (Lasix) 40 mg IVP DAILY [facility] Last Admin: 06/08/17 09:40 Dose: 40 mg Gabapentin (Neurontin) 100 mg PO DAILY [facility] Last Admin: 06/08/17 09:40 Dose: 100 mg Milrinone Lactate/Dextrose (Primacor 20mg/100ml D5w) 100 mls @ 8.057 mls/hr IV .[id number] PRN; Protocol; 0.375 MCG/KG/MIN PRN Reason: TITRATE PER MD ORDER Last Admin: 06/07/17 21:54 Dose: 0.375 mcg/kg/min, 8.057 mls/hr Insulin Detemir (Levemir) 10 unit SC DAILY [facility] Last Admin: 06/08/17 09:43 Dose: 10 unit Insulin Human Regular (Humulin R Low) 0 units SC ACHS [facility] PRN Reason: Protocol Last Admin: 06/08/17 12:27 Dose: 1 units Ipratropium [place] (Atrovent) 0.5 mg IH [id number] [facility] Last Admin: 06/08/17 14:41 Dose: 0.5 mg Ipratropium [place] (Atrovent) 0.5 mg IH [id number] PRN PRN Reason: Shortness of Breath Levalbuterol HCl (Xopenex) 1.25 mg IH [id number] [facility] Last Admin: 06/08/17 14:44 Dose: 1.25 mg Levalbuterol HCl (Xopenex) 0.63 mg IH [id number] PRN PRN Reason: Shortness of Breath Last Admin: 06/06/17 19:33 Dose: 0.63 mg Magnesium Oxide (Mag-Ox) 400 mg PO BID [facility] Last Admin: 06/08/17 09:40 Dose: 400 mg Metoprolol Tartrate (Lopressor) 12.5 mg PO Q12 [facility] Last Admin: 06/08/17 09:40 Dose: 12.5 mg Atomoxetine Hcl [ (Strattera] 60 Mg) 60 mg PO DAILY [facility] Last Admin: 06/08/17 09:41 Dose: Not Given Nystatin (Nystop Topical Powder) 0 gm TOP BID [facility] Last Admin: 06/08/17 09:41 Dose: 1 applic Pantoprazole Sodium (Protonix Ec Tab) 40 mg PO DAILY [facility] Last Admin: 06/08/17 09:41 Dose: 40 mg Polyethylene Glycol (Miralax) 17 gm PO DAILY [facility] Last Admin: 06/08/17 09:41 Dose: 17 gm Sildenafil Citrate (Revatio) 20 mg PO Q8 [facility] Last Admin: 06/08/17 14:35 Dose: 20 mg Sodium Chloride ([place] Nasal Gerry) 0 ml NS TID PRN PRN Reason: Nasal congestion Zolpidem Tartrate (Ambien) 5 mg PO HS PRN; Protocol PRN Reason: Insomnia Last Admin: 06/07/17 21:54 Dose: 5 mg Physical Exam - Constitutional Appears: Well, Non-toxic, No Acute Distress - Extremities Exam Additional comments: Compression stockings present on bilateral LE VASC: DP pulses palpable 2/4 b/l. PT pulses nonpalpable secondary to edema. COOK 3 PASTRY : < 3 sec to all digits, TG: warm to cool from proximal to distal. +1 pitting edema noted to bilateral LE. DERM: Maceration noted to right 4th interspace. Erythema noted to right 5th digit with small pinpoint ulceration on medial aspect of digit. NEURO: Protective sensation grossly intact ORTHO: Mild pain on palpation of the 5th digit on the right foot. Pain upon ROM right foot 5th digit. - Neurological Exam Neurological exam: Alert, Oriented x3 - Psychiatric Exam Psychiatric exam: Depressed Results - Vital Signs Recent Vital Signs: Last Vital Signs Temp 98.1 F 06/08/17 11:54 Pulse 60 06/08/17 11:54 Resp 16 06/08/17 11:54 BP 104/40 L 06/08/17 11:54 Pulse Ox 94 L 06/08/17 05:26 - Labs Result Diagrams: 06/08/17 13:00 06/08/17 13:00 Labs: Laboratory Results - last 24 hr 06/07/17 06/07/17 06/07/17 16:45 16:53 21:32 WBC RBC Hgb Hct MCV MCH MCHC RDW Plt Count MPV Sodium Potassium Chloride Carbon Dioxide Anion Gap BUN Creatinine Est GFR ( Amer) Est GFR (Non-Af Amer) POC Glucose (mg/dL) 111 H 189 H Random Glucose 83 Calcium 06/08/17 06/08/17 06/08/17 07:36 11:15 13:00 WBC RBC Hgb Hct MCV MCH MCHC RDW Plt Count MPV Sodium 131 L Potassium 4.1 Chloride 90 L Carbon Dioxide 35 H Anion Gap 11 BUN 31 H Creatinine 1.1 Est GFR ( Amer) > 60 Est GFR (Non-Af Amer) > 60 POC Glucose (mg/dL) 100 191 H Random Glucose 211 H Calcium 8.8 06/08/17 06/08/17 13:00 15:57 WBC 5.6 D RBC 3.49 L Hgb 10.9 L Hct 32.7 L MCV 93.7 MCH 31.2 MCHC 33.3 RDW 13.7 Plt Count 191 MPV 10.7 Sodium Potassium Chloride Carbon Dioxide Anion Gap BUN Creatinine Est GFR ( Amer) Est GFR (Non-Af Amer) POC Glucose (mg/dL) 164 H Random Glucose Calcium Assessment & Plan - Assessment and Plan (Free Text) Assessment: 82 year old male with ulceration to right 5th digit Plan: Patient seen and evaluated at bedside Discussed with attending, Dr. Kendall Afebrile, absent leukocytosis Betadine applied to 4th interspace right foot, will continue to monitor Continue compression stockings to bilateral LE Podiatry will continue to follow patient while in house <Kath Kendall - Last Filed: 06/19/17 14:09> Meds - Medications Medications: Current Medications Alprazolam (Xanax) 0.25 mg PO BID PRN; Protocol PRN Reason: Anxiety Stop: 06/22/17 18:01 Last Admin: 06/18/17 09:44 Dose: 0.25 mg Atorvastatin Calcium (Lipitor) 40 mg PO DAILY [facility] Last Admin: 06/19/17 09:13 Dose: 40 mg Enoxaparin Sodium (Lovenox) 30 mg SC DAILY [facility] PRN Reason: Protocol Last Admin: 06/19/17 09:15 Dose: 30 mg Fluticasone Propionate (Flonase) 1 actuation NS DAILY [facility] Last Admin: 06/19/17 09:16 Dose: 1 spr Gabapentin (Neurontin) 100 mg PO DAILY [facility] Last Admin: 06/19/17 09:14 Dose: 100 mg Glipizide (Glucotrol) 10 mg PO 0730,1630 [facility] Last Admin: 06/19/17 08:30 Dose: 10 mg Home Med (Home Med) 1 unit PO DAILY [facility] Last Admin: 06/19/17 09:17 Dose: 1 unit Milrinone Lactate/Dextrose (Primacor 20mg/100ml D5w) 100 mls @ 4.297 mls/hr IV .[id number] PRN; Protocol; 0.2 MCG/KG/MIN PRN Reason: TITRATE PER MD ORDER Last Admin: 06/18/17 22:44 Dose: 0.2 mcg/kg/min, 4.297 mls/hr Iron Sucrose 200 mg/ Sodium (Chloride) 110 mls @ 110 mls/hr IVPB ONCE ONE Stop: 06/20/17 10:59 Insulin Detemir (Levemir) 10 unit SC HS [facility] Insulin Human Lispro (Humalog Low) 0 units SC ACHS [facility] PRN Reason: Protocol Last Admin: 06/19/17 12:49 Dose: Not Given Insulin Human Lispro (Humalog) 3 units SC ACHS [facility] Last Admin: 06/19/17 13:05 Dose: 3 units Ipratropium [place] (Atrovent) 0.5 mg IH [id number] [facility] Last Admin: 06/19/17 13:34 Dose: 0.5 mg Levalbuterol HCl (Xopenex) 1.25 mg IH [id number] [facility] Last Admin: 06/19/17 13:34 Dose: 1.25 mg Levalbuterol HCl (Xopenex) 0.63 mg IH [id number] PRN PRN Reason: Shortness of Breath Last Admin: 06/15/17 15:07 Dose: 0.63 mg Methylprednisolone (Solu-Medrol) 20 mg IVP DAILY [facility] Last Admin: 06/19/17 09:15 Dose: 20 mg Atomoxetine Hcl [ (Strattera] 60 Mg) 60 mg PO DAILY [facility] Last Admin: 06/19/17 09:18 Dose: Not Given Nystatin (Nystop Topical Powder) 0 gm TOP DAILY [facility] Last Admin: 06/19/17 09:17 Dose: 1 applic Pantoprazole Sodium (Protonix Ec Tab) 20 mg PO ACB [facility] Last Admin: 06/19/17 08:30 Dose: 20 mg Polyethylene Glycol (Miralax) 17 gm PO DAILY [facility] Last Admin: 06/19/17 09:15 Dose: 17 gm Polysaccharide Iron Complex (Ferrex-150) 150 mg PO DAILY [facility] Last Admin: 06/19/17 09:13 Dose: 150 mg Sevelamer HCl (Renagel) 800 mg PO TID [facility] Last Admin: 06/19/17 13:07 Dose: 800 mg Sildenafil Citrate (Revatio) 20 mg PO Q8 [facility] Last Admin: 06/19/17 13:07 Dose: 20 mg Sodium Chloride ([place] Nasal [place]) 0 ml NS TID PRN PRN Reason: Nasal congestion Zolpidem Tartrate (Ambien) 5 mg PO HS PRN; Protocol PRN Reason: Insomnia Last Admin: 06/16/17 23:05 Dose: 5 mg Results - Vital Signs Recent Vital Signs: Last Vital Signs Temp 97.8 F 06/19/17 12:00 Pulse 109 H 06/19/17 14:00 Resp 25 H 06/19/17 14:00 BP 134/55 L 06/19/17 12:00 Pulse Ox 97 06/19/17 14:00 - Labs Result Diagrams: 06/19/17 05:30 06/19/17 05:30 Labs: Laboratory Results - last 24 hr 06/18/17 06/18/17 06/18/17 07:50 10:54 16:16 WBC RBC Hgb Hct MCV MCH MCHC RDW Plt Count MPV Sodium Potassium Chloride Carbon Dioxide Anion Gap BUN Creatinine Est GFR ( Amer) Est GFR (Non-Af Amer) POC Glucose (mg/dL) 157 H 108 110 Random Glucose Calcium Phosphorus Magnesium Total Bilirubin AST ALT Alkaline Phosphatase Total Protein Albumin Globulin Albumin/Globulin Ratio 06/18/17 06/19/17 06/19/17 22:30 05:30 05:30 WBC 6.9 RBC 3.19 L Hgb 9.8 L Hct 29.4 L MCV 92.2 MCH 30.7 MCHC 33.3 RDW 13.9 Plt Count 135 MPV 12.7 H Sodium 137 Potassium 3.6 Chloride 98 Carbon Dioxide 31 Anion Gap 12 BUN 100 H Creatinine 1.7 H Est GFR ( Amer) 47 Est GFR (Non-Af Amer) 39 POC Glucose (mg/dL) 105 Random Glucose 85 Calcium 8.9 Phosphorus 3.2 Magnesium 2.9 H Total Bilirubin 0.9 AST 30 ALT 35 Alkaline Phosphatase 107 Total Protein 5.9 Albumin 3.0 Globulin 2.9 Albumin/Globulin Ratio 1.1 06/19/17 06/19/17 07:24 08:25 WBC RBC Hgb Hct MCV MCH MCHC RDW Plt Count MPV Sodium Potassium Chloride Carbon Dioxide Anion Gap BUN Creatinine Est GFR ( Amer) Est GFR (Non-Af Amer) POC Glucose (mg/dL) 48 L 114 H Random Glucose Calcium Phosphorus Magnesium Total Bilirubin AST ALT Alkaline Phosphatase Total Protein Albumin Globulin Albumin/Globulin Ratio Attending/Attestation - Attestation I have personally seen and examined this patient.: Yes I have fully participated in the care of the patient.: Yes I have reviewed all pertinent clinical information: Yes
[2017-06-08] MEDS: Fluticasone Nasal 50 mcg/Spray NS SCH (17:21)
[2017-06-08] MEDS: Milrinone 20mg/100ml D5W 100 ML IV PRN (17:43)
--- NOTE | 2017-06-08 22:56 | PN ---
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 Wants to go home on Primacor drip. Overall feels better. Still short of breath with exertion. No nausea. No vomiting. No diarrhea. No leg pain or leg swelling. OBJECTIVE: GENERAL: In no acute distress. VITAL SIGNS: Temperature is 98, heart rate is 60, respiratory rate is 16, blood pressure 104/40 and pulse ox is 94% on nasal cannula. HEENT: Moist mucous membranes. Crowded airway. Mallampati score is IV. NECK: Supple. No JVD. LUNGS: Has a fair airflow with few rhonchi. HEART: S1 and S2. ABDOMEN: Soft, nontender. No organomegaly. EXTREMITIES: No edema. NEUROLOGICALLY: Awake and alert. Follow simple commands. MEDICATIONS: He is on Ambien 5 mg at bedtime p.r.n., Atrovent inhaled q. 6 hours, Flonase one spray each nostril daily, insulin coverage, Lasix 40 mg daily, Levemir 10 units subcutaneously daily, Lipitor 40 mg daily, metoprolol tartrate 12.5 mg twice a day, Lovenox 40 mg daily, magnesium oxide 400 mg twice a day, MiraLax 17 g daily, gabapentin mg daily, nasal saline 3 times a day p.r.n., Pulmicort inhaled twice a day, Protonix 40 mg daily, Revatio 20 mg q. 8 hours, Wellbutrin 75 mg twice a day, Xopenex 1.25 mg q. 6 hours, Xopenex inhaled q. 4 hours p.r.n. LABORATORY DATA: Shows hemoglobin 10.9, hematocrit 32.7, WBC 5.6 and platelet is 191. Sodium 131, potassium 4.1, chloride 90, bicarb 35, BUN 31, creatinine 1.1, glucose 211 and calcium is 8.8. IMPRESSION AND PLAN: Severe pulmonary hypertension, right heart failure, cardiac asthma, valvular heart disease, severe deconditioning, very limited ambulation because of shortness of breath. I spoke to nursing staff and the patient's at bedside, encourage him to use bilevel positive airway pressure at night. Continue Revatio and Primacor. We will need to order endothelin inhibitor and prostacyclin. Start therapy. Thank you and we will follow with you. Guru Bustos MD
--- NOTE | 2017-06-08 23:49 | PN ---
DATE: 06/07/2017 SUBJECTIVE: The patient complains of constipation. is concerned about not making urine. Although, he did make good urine output. The patient also complained about his stools. There is some redness between the toes. He has history of fungal infections otherwise there is no new complain. He is improved clinically, less short of breath and no fever and no chest pain. PHYSICAL EXAMINATION: VITAL SIGNS: Temperature 98, heart rate 82, blood pressure 128/70 and respirations 18. HEAD AND NECK: Normal. No JVD. No thyromegaly. CHEST: Clear. Good air entry. CARDIAC: First sound and second sound normal. Systolic murmur across aortic area. ABDOMEN: Soft and nontender. EXTREMITIES: No edema. NEUROLOGIC: Normal. ASSESSMENT AND PLAN: The patient noted his sugar went down to on the 1. Hypoglycemia, we will decrease insulin, cover the long acting insulin to once a day and Levemir 10 units once a day only and plus continue coverage. 2. Congestive heart failure, right-sided more than left, associated with severe pulmonary hypertension. Continue Lasix. Continue IV milrinone. Continue Revatio. The patient otherwise stable. 3. Hypercholesterolemia. 4. Chronic obstructive pulmonary disease. 5. Obstructive sleep apnea. Continue inhaled bronchodilators. Continue rest of the medications, Atrovent and Flonase. 6. Adult attention deficit syndrome, insomnia, depression, continue Wellbutrin, Ambien, and Strattera. 7. Continue gastrointestinal and deep venous thrombosis prophylaxis, which we are awaiting for the pulmonary hypertensive medications to be authorized. Also we are going to get MiraLax and Mycostatin for his toes and I will follow up clinically. Arya Booker MD
[2017-06-09] MEDS: Ipratropium 0.02% Inhal Soln (0.5 mg/2.5 ml) UD IH SCH ×4 (03:00→20:02)
--- NOTE | 2017-06-09 03:31 | PN ---
DATE: 06/08/2017 SUBJECTIVE: This patient was seen and evaluated earlier. The patient did have good bowel movement. He was complaining of constipation prior and no complaints of any abdominal pain, tolerating the diet. PHYSICAL EXAMINATION: VITAL SIGNS: Temperature is 98.2, pulse 73, blood pressure is 112/47. HEENT: Atraumatic and anicteric. NECK: Supple. HEART: S1 and S2 heard. LUNGS: Bilateral air entry present. Few occasional rhonchi present. ABDOMEN: Soft. There is no tenderness. LABORATORY DATA: Hemoglobin 10.9, hematocrit 32.7, WBC 5.6, platelets 191. BMP is essentially unremarkable. IMPRESSION AND PLAN: This is an 82-year-old patient with severe pulmonary hypertension probably secondary to valvular disease. He has a history of mitral valve repair and also aortic valve replacement, coronary artery disease, severe pulmonary hypertension, and has elevated liver function test, which was improving. The patient did have some gallstones, but common bile duct is normal and the likely cause for elevated liver function test is probably secondary to the hepatic congestion from pulmonary hypertension. Thank you very much for allowing us to participate in the care of the patient. Karly Fraser MD MTDD
[2017-06-09] MEDS: Milrinone 20mg/100ml D5W 100 ML IV PRN ×2 (05:51→20:04)
[2017-06-09] MEDS: Sildenafil 20 MG TAB PO SCH ×3 (05:51→22:23)
[2017-06-09] MEDS: Levalbuterol 1.25 MG/3 ML Inhal Soln UD IH SCH ×3 (07:47→20:02)
[2017-06-09] MEDS: Insulin Reg-LOW-Coverage SC SCH ×4 (07:54→22:16)
[2017-06-09] MEDS: Insulin Detemir 100 units/ml Vial (Levemir) SC SCH (10:14)
[2017-06-09] MEDS: Fluticasone Nasal 50 mcg/Spray NS SCH (10:14)
[2017-06-09] MEDS: Enoxaparin 40 mg Syringe SC SCH (10:14)
[2017-06-09] MEDS: POLYETHYLENE GLYCOL 3350 17 GM/Dose PACKET PO SCH (10:15)
[2017-06-09] MEDS: Nystatin 100,000 Units/gm Topical Pow(15 gm) TOP SCH ×2 (10:15→11:33)
[2017-06-09] MEDS: Magnesium Oxide 400 mg Tab UD PO SCH ×2 (10:16→17:19)
[2017-06-09] MEDS: Pantoprazole 40 mg EC Tab PO SCH (10:17)
--- NOTE | 2017-06-09 12:11 | CP.PCM.PN ---
<Danica Beltran - Last Filed: 06/09/17 12:06> Subjective - Date & Time of Evaluation Date of Evaluation: 06/09/17 Time of Evaluation: 10:06 - Subjective Subjective: Podiatry Progress Note - Dr. Kendall 82 year old male patient seen and evaluated at bedside for right foot 5th digit pain. Patient hemodynamically stable and NAD. Denies any acute events overnight. Reports decreased pain to his 5th toe. No other pedal complaints. Denies N/V/F/D/C/SOB/calf pain. Objective - Vital Signs/Intake and Output Vital Signs (last 24 hours): Temp Pulse Resp BP Pulse Ox 97.8 F 76 20 138/67 99 06/09/17 05:22 06/09/17 10:17 06/09/17 05:22 06/09/17 10:17 06/09/17 05:22 Intake and Output: 06/09/17 06/09/17 06:59 18:59 Intake Total 532 Output Total 3750 Balance -3218 - Medications Medications: Current Medications Atorvastatin Calcium (Lipitor) 40 mg PO DAILY [facility] Last Admin: 06/09/17 10:17 Dose: 40 mg Bupropion HCl (Wellbutrin) 75 mg PO BID [facility] Last Admin: 06/09/17 10:17 Dose: 75 mg Enoxaparin Sodium (Lovenox) 40 mg SC DAILY [facility] PRN Reason: Protocol Last Admin: 06/09/17 10:14 Dose: 40 mg Fluticasone Propionate (Flonase) 1 actuation NS DAILY [facility] Last Admin: 06/09/17 10:14 Dose: 2 spr Furosemide (Lasix) 40 mg PO DAILY [facility] Gabapentin (Neurontin) 100 mg PO DAILY [facility] Last Admin: 06/09/17 10:17 Dose: 100 mg Milrinone Lactate/Dextrose (Primacor 20mg/100ml D5w) 100 mls @ 8.057 mls/hr IV .[id number] PRN; Protocol; 0.375 MCG/KG/MIN PRN Reason: TITRATE PER MD ORDER Last Admin: 06/09/17 05:51 Dose: 0.375 mcg/kg/min, 8.057 mls/hr Insulin Detemir (Levemir) 10 unit SC DAILY [facility] Last Admin: 06/09/17 10:14 Dose: 10 unit Insulin Human Regular (Humulin R Low) 0 units SC ACHS BAKARI PRN Reason: Protocol Last Admin: 06/09/17 11:46 Dose: 2 units Ipratropium [place] (Atrovent) 0.5 mg IH [id number] [facility] Last Admin: 06/09/17 07:47 Dose: 0.5 mg Ipratropium [place] (Atrovent) 0.5 mg IH [id number] PRN PRN Reason: Shortness of Breath Levalbuterol HCl (Xopenex) 1.25 mg IH [id number] [facility] Last Admin: 06/09/17 07:47 Dose: 1.25 mg Levalbuterol HCl (Xopenex) 0.63 mg IH [id number] PRN PRN Reason: Shortness of Breath Last Admin: 06/06/17 19:33 Dose: 0.63 mg Magnesium Oxide (Mag-Ox) 400 mg PO BID [facility] Last Admin: 06/09/17 10:16 Dose: 400 mg Metoprolol Tartrate (Lopressor) 12.5 mg PO Q12 [facility] Last Admin: 06/09/17 10:17 Dose: 12.5 mg Atomoxetine Hcl [ (Strattera] 60 Mg) 60 mg PO DAILY [facility] Last Admin: 06/09/17 10:06 Dose: Not Given Nystatin (Nystop Topical Powder) 0 gm TOP DAILY [facility] Last Admin: 06/09/17 11:33 Dose: Not Given Pantoprazole Sodium (Protonix Ec Tab) 40 mg PO DAILY [facility] Last Admin: 06/09/17 10:17 Dose: 40 mg Polyethylene Glycol (Miralax) 17 gm PO DAILY [facility] Last Admin: 06/09/17 10:15 Dose: 17 gm Sildenafil Citrate (Revatio) 20 mg PO Q8 [facility] Last Admin: 06/09/17 05:51 Dose: 20 mg Sodium Chloride ([place] Nasal [place]) 0 ml NS TID PRN PRN Reason: Nasal congestion Zolpidem Tartrate (Ambien) 5 mg PO HS PRN; Protocol PRN Reason: Insomnia Last Admin: 06/08/17 21:15 Dose: 5 mg - Labs Labs: 06/08/17 13:00 06/08/17 13:00 PT 15.4 SECONDS (9.4-12.5) H 05/31/17 19:20 INR 1.40 (0.93-1.08) H 05/31/17 19:20 APTT 29.6 Seconds (25.1-36.5) 05/31/17 19:20 - Constitutional Appears: Well, Non-toxic, No Acute Distress - Extremities Exam Additional comments: Compression stockings present on bilateral LE. Dressing to right 5th digit appears clean/dry/intact. VASC: DP pulses palpable 2/4 b/l. PT pulses nonpalpable secondary to edema. VP RESPIRATORY : < 3 sec to all digits, TG: warm to cool from proximal to distal. +1 pitting edema noted to bilateral LE. DERM: Maceration noted to right 4th interspace, decreased since previous visit. Erythema noted to right 5th digit with small pinpoint ulceration on medial aspect of digit - no drainage, no purulence, no fluctuance, no ascending cellulitis. NEURO: Protective sensation grossly intact ORTHO: Mild pain on palpation of the 5th digit on the right foot. Pain upon ROM right foot 5th digit. - Neurological Exam Neurological Exam: Alert, Awake, Oriented x3 - Psychiatric Exam Psychiatric exam: Depressed Assessment and Plan - Assessment and Plan (Free Text) Assessment: 82 year old male with ulceration to right 5th digit Plan: Patient seen and evaluated at bedside Discussed with attending, Dr. Kendall Afebrile Continue local wound care - QD betadine + Nystatin powder with DSD Continue compression stockings to bilateral LE Continue elevation for edema Podiatry will continue to follow patient while in house <Kath Kendall - Last Filed: 06/19/17 14:10> Objective - Vital Signs/Intake and Output Vital Signs (last 24 hours): Temp Pulse Resp BP Pulse Ox 97.8 F 109 H 25 H 134/55 L 97 06/19/17 12:00 06/19/17 14:00 06/19/17 14:00 06/19/17 12:00 06/19/17 14:00 Intake and Output: 06/19/17 06/19/17 06:59 18:59 Intake Total 200 Output Total 800 Balance -600 - Medications Medications: Current Medications Alprazolam (Xanax) 0.25 mg PO BID PRN; Protocol PRN Reason: Anxiety Stop: 06/22/17 18:01 Last Admin: 06/18/17 09:44 Dose: 0.25 mg Atorvastatin Calcium (Lipitor) 40 mg PO DAILY [facility] Last Admin: 06/19/17 09:13 Dose: 40 mg Enoxaparin Sodium (Lovenox) 30 mg SC DAILY [facility] PRN Reason: Protocol Last Admin: 06/19/17 09:15 Dose: 30 mg Fluticasone Propionate (Flonase) 1 actuation NS DAILY [facility] Last Admin: 06/19/17 09:16 Dose: 1 spr Gabapentin (Neurontin) 100 mg PO DAILY [facility] Last Admin: 06/19/17 09:14 Dose: 100 mg Glipizide (Glucotrol) 10 mg PO [id number],[id number] [facility] Last Admin: 06/19/17 08:30 Dose: 10 mg Home Med (Home Med) 1 unit PO DAILY [facility] Last Admin: 06/19/17 09:17 Dose: 1 unit Milrinone Lactate/Dextrose (Primacor 20mg/100ml D5w) 100 mls @ 4.297 mls/hr IV .[id number] PRN; Protocol; 0.2 MCG/KG/MIN PRN Reason: TITRATE PER MD ORDER Last Admin: 06/18/17 22:44 Dose: 0.2 mcg/kg/min, 4.297 mls/hr Iron Sucrose 200 mg/ Sodium (Chloride) 110 mls @ 110 mls/hr IVPB ONCE ONE Stop: 06/20/17 10:59 Insulin Detemir (Levemir) 10 unit SC [facility] Insulin Human Lispro (Humalog Low) 0 units SC ACHS [facility] PRN Reason: Protocol Last Admin: 06/19/17 12:49 Dose: Not Given Insulin Human Lispro (Humalog) 3 units SC ACHS [facility] Last Admin: 06/19/17 13:05 Dose: 3 units Ipratropium [place] (Atrovent) 0.5 mg IH [id number] [facility] Last Admin: 06/19/17 13:34 Dose: 0.5 mg Levalbuterol HCl (Xopenex) 1.25 mg IH [id number] [facility] Last Admin: 06/19/17 13:34 Dose: 1.25 mg Levalbuterol HCl (Xopenex) 0.63 mg IH [id number] PRN PRN Reason: Shortness of Breath Last Admin: 06/15/17 15:07 Dose: 0.63 mg Methylprednisolone (Solu-Medrol) 20 mg IVP DAILY [facility] Last Admin: 06/19/17 09:15 Dose: 20 mg Atomoxetine Hcl [ (Strattera] 60 Mg) 60 mg PO DAILY [facility] Last Admin: 06/19/17 09:18 Dose: Not Given Nystatin (Nystop Topical Powder) 0 gm TOP DAILY [facility] Last Admin: 06/19/17 09:17 Dose: 1 applic Pantoprazole Sodium (Protonix Ec Tab) 20 mg PO ACB [facility] Last Admin: 06/19/17 08:30 Dose: 20 mg Polyethylene Glycol (Miralax) 17 gm PO DAILY [facility] Last Admin: 06/19/17 09:15 Dose: 17 gm Polysaccharide Iron Complex (Ferrex-150) 150 mg PO DAILY [facility] Last Admin: 06/19/17 09:13 Dose: 150 mg Sevelamer HCl (Renagel) 800 mg PO TID [facility] Last Admin: 06/19/17 13:07 Dose: 800 mg Sildenafil Citrate (Revatio) 20 mg PO Q8 [facility] Last Admin: 06/19/17 13:07 Dose: 20 mg Sodium Chloride ([place] Nasal [place]) 0 ml NS TID PRN PRN Reason: Nasal congestion Zolpidem Tartrate (Ambien) 5 mg PO HS PRN; Protocol PRN Reason: Insomnia Last Admin: 06/16/17 23:05 Dose: 5 mg - Labs Labs: 06/19/17 05:30 06/19/17 05:30 PT 15.4 SECONDS (9.4-12.5) H 05/31/17 19:20 INR 1.40 (0.93-1.08) H 05/31/17 19:20 APTT 29.6 Seconds (25.1-36.5) 05/31/17 19:20 Attending/Attestation - Attestation I have personally seen and examined this patient.: Yes I have fully participated in the care of the patient.: Yes I have reviewed all pertinent clinical information, including history, physical exam and plan: Yes
--- NOTE | 2017-06-09 14:48 | PN ---
DATE: 06/09/2017 REASON FOR CONSULTATION: Followup cardiac evaluation, severe pulmonary hypertension, one-vessel coronary artery bypass graft, AVR, MVR and status post right heart catheterization, severe pulmonary hypertension. SUBJECTIVE: The patient denies any chest pain, shortness of breath, feels better, wanted to go home. OBJECTIVE: GENERAL: Not in apparent distress, on Primacor. VITAL SIGNS: As follows: Temperature afebrile, heart rate 76, blood pressure 138/67. HEENT: PERRLA. Extraocular muscles intact. NECK: Supple. No carotid bruit or thyromegaly. CHEST: Clear to auscultation. HEART: S1 and S2 regular. ABDOMEN: Soft. EXTREMITIES: Clubbing and cyanosis negative. LABORATORY DATA: Blood workup as follows; WBC 5.6, hemoglobin 10.8, hematocrit 32.7, and platelet count 191. Chemistry shows sodium 131, potassium 4.1, chloride 90, carbon dioxide 35, anion gap of 11, BUN 31, and creatinine 1.1. IMPRESSION: An 82-year-old male with past medical history significant for severe aortic stenosis status post aortic valve replacement, aortic valve with bioprosthetic mitral valve repair, severe pulmonary hypertension, reports ejection fraction 65%, pulmonary artery pressure by right heart catheterization 103, pulmonary vascular resistance of 10.6 Wood unit. As mentioned, preserved left ventricular function, ejection fraction 65% by echo. Pulmonary artery pressure, right ventricular systolic pressure by echo 161, peak [id number] aortic regurgitation, status post bioprosthetic aortic valve replacement, status post mitral valve repair, one-vessel coronary artery bypass graft, diabetes, hypertension, hyperlipidemia, right ventricular hypokinesis. RECOMMENDATION: Continue interim Primacor. Continue Revatio. Eventually, the patient needs Bosentan antagonist, Tracleer or Flolan, prostacyclin inhibitors for pulmonary hypertension, but leave up to poultry and fish butcher recommendation. Continue gentle diuretics to keep negative fluid balance for oxygenation. CVA status is stable. No further cardiac workup is planned. Continue DVT prophylaxis. Change Lasix to p.o. The patient wanted to go home. When the patient is ready to go, discontinue Primacor and can be discharged home. We will follow with you. Thank you Dr. Booker to provide us opportunity in taking care of Emory Arboleda. I will discontinue IV Lasix after 2 days dose and start Lasix p.o. from tomorrow. The patient is stable from Cardiology point of view to go home, but needs medication for pulmonary hypertension. Further recommendations as per Pulmonary. The patient gets the benefit from Flolan, prostacyclin inhibitors or Bosentan antagonist, Tracleer but needs close monitoring. Guru Sosa MD
--- NOTE | 2017-06-09 19:02 | PN ---
DATE: 06/09/2017 SUBJECTIVE: This patient was seen and evaluated earlier today. The patient is comfortable. The patient's family was at bedside. PHYSICAL EXAMINATION: VITAL SIGNS: Temperature is 97.6, pulse 77, blood pressure is 112/46. HEENT: Atraumatic and anicteric. NECK: Supple. HEART: S1 and S2 heard. LUNGS: Bilateral air entry present. Few occasional rhonchi. ABDOMEN: Soft. There is no tenderness. LABORATORY DATA: Hemoglobin 10. There is no labs done today. IMPRESSION AND PLAN: 1. History of abnormal liver function tests. Gallstones and common bile duct normal. 2. The patient has a severe pulmonary hypertension, valvular heart disease, likely cause the liver function test showing significant improvement, most likely cause for this liver function test abnormalities probably secondary to hepatic congestion. 3. History of constipation improved. RECOMMENDATIONS: Follow up of the LFTs, request of CBC and CMP to be done in a.m. Continue the present management and Miralax on a p.r.n. basis. Thank you very much for allowing us to participate in the care of the patient. Karly Fraser MD AMALIA
--- NOTE | 2017-06-09 20:56 | PN ---
DATE: 06/09/2017 SUBJECTIVE: The patient seems doing well. No new complaints. No chest pain. Not short of breath. He is just concerned about the pulmonary hypertensive medications. The patient is still getting IV milrinone, feels better with it. PHYSICAL EXAMINATION: VITAL SIGNS: Today, temperature 97.6, heart rate 77, blood pressure 112/45, respirations 20. HEAD AND NECK: Normal. No JVD. No thyromegaly. CHEST: Clear, good air entry. CARDIAC: First sound and second sounds normal. ABDOMEN: Soft and nontender. EXTREMITIES: No edema. NEUROLOGIC: Normal. LABORATORY STUDY: Noted for blood sugar 140. IMPRESSION AND PLAN: 1. Pulmonary hypertension. Continue intravenous milrinone. The patient seems doing better and waiting for the medications. Continue Revatio. 2. Chronic obstructive pulmonary disease, obstructive sleep apnea. Continue inhaled bronchodilators and continuous positive airway pressure machine. 3. Hypercholesterolemia, coronary artery disease, valvular heart disease. The patient is status post bypass and aortic valve replacement. Seems doing well. Continue Lasix intravenous. 4. Depression, attention deficit, insomnia. Continue Wellbutrin, Ambien, and Strattera. The patient seems doing well. Continue GI and DVT prophylaxis. We will get physical therapy and we will follow up clinically. The patient seen by charger, bone crusher and other consultants. Arya Booker MD
--- NOTE | 2017-06-09 22:26 | PN ---
PULMONARY PROGRESS NOTE DATE: 06/07/2017 REFERRING PHYSICIAN: Arya Booker MD SUBJECTIVE: The patient is lying in the bed, head at 45 degrees, wants to go home, and feels better with Primacor. No more wheezing. No nausea. No vomiting, diarrhea, leg pain or leg swelling. OBJECTIVE: GENERAL: No acute distress. VITAL SIGNS: Temperature is 98, heart rate is 85, respiratory rate is 20, blood pressure is 125/54, and pulse ox is 97% on nasal cannula. HEENT: Moist mucous membranes. Crowded airway. NECK: Supple. No JVD. LUNGS: Has a fair airflow with rhonchi. HEART: S1 and S2. ABDOMEN: Soft and nontender. No organomegaly. EXTREMITIES: There is no edema. NEUROLOGIC: Awake and alert. Follows simple commands. LABORATORY DATA: Reviewed and noted. Blood sugar this morning 159. MEDICATIONS: He is on Ambien 5 mg at bedtime p.r.n., also on Atrovent inhaled q.6 hours, Flonase one spray each nostril daily, insulin coverage, Lasix 40 mg daily, Levemir 10 units subcutaneously daily, Lipitor 40 mg daily, metoprolol tartrate 12.5 mg twice a day, magnesium oxide 400 mg twice a day, MiraLax 17 g daily, Neurontin 100 mg daily, nasal saline one spray each nostril q.8 hours as needed, Primacor drip, Protonix 40 mg daily, Revatio 20 mg q.8 hours, Wellbutrin 75 mg daily, and Xopenex inhaled every 6 hours. IMPRESSION AND PLAN: Severe pulmonary hypertension with right heart failure with cardiac asthma, valvular heart disease, and severe deconditioning. I spoke to the patient in detail. Discussed about his medication. Pharmacy knows when working on it to get the pulmonary hypertension medications. For now, continue Primacor. If unable to get, I will bring office sample for endothelin inhibitor, Revatio could from the pharmacy and we will try with those combination he does. Encourage CPAP use at nighttime. Follow up labs in the morning. Thank you and we will follow with you. Guru Bustos MD
[2017-06-10] MEDS: Levalbuterol 0.63 MG/3 ML Inhal Soln UD IH PRN ×2 (01:00→22:18)
[2017-06-10] MEDS: Ipratropium 0.02% Inhal Soln (0.5 mg/2.5 ml) UD IH SCH ×4 (02:30→19:43)
[2017-06-10] MEDS: Levalbuterol 1.25 MG/3 ML Inhal Soln UD IH SCH ×5 (04:25→22:47)
[2017-06-10] MEDS: Sildenafil 20 MG TAB PO SCH ×3 (05:36→22:01)
[2017-06-10 06:42] LABS: ALB/GLOB RATIO 1.1 (1.1-1.8); ALBUMIN 3.4 g/dL (3.0-4.8); ALT/SGPT 55 U/L (7-56); AST/SGOT 45 U/L (17-59); BLOOD UREA NITROGEN 33 mg/dL (7-21); CALCIUM 9.2 mg/dL (8.4-10.5); GFR AFRICAN-AMERICAN > 60; GFR NON-AFRICAN AMERICAN 58
[2017-06-10] MEDS: Milrinone 20mg/100ml D5W 100 ML IV PRN ×2 (07:53→21:21)
[2017-06-10] MEDS: Insulin Reg-LOW-Coverage SC SCH ×4 (08:51→23:41)
--- NOTE | 2017-06-10 09:37 | PN ---
DATE: 06/08/2017 SUBJECTIVE: The patient is sitting on the chair, stable clinically. He walked to the bathroom with assistants, seems less short of breath. He has no other complains, seen by Technical Sme and seems making good urine output. PHYSICAL EXAMINATION: His physical examinations today 06/08/2017 is as follow; VITAL SIGNS: The patient has temperature of 98.4, heart rate 71, blood pressure 121/55, respirations 18 and saturation 95% on room air. HEAD AND NECK: Normal. No JVD. No thyromegaly. CHEST: Clear. Good air entry. CARDIAC: First sound and second sound normal. Systolic murmur at aortic area. ABDOMEN: Soft and nontender. EXTREMITIES: No edema. NEUROLOGIC: Normal. LABORATORY STUDY: As follow; sodium 131, potassium 4.1, chloride 90, bicarb 35, BUN 31, creatinine 1.1, calcium 8.8 and blood sugar 164. CBC; white count 5.6, hemoglobin 10.9, hematocrit 32.7 and platelets 191. IMPRESSION AND PLAN: 1. Severe pulmonary hypertension. Continue Revatio, continue milrinone, continue Lasix and oxygen, seems doing well. 2. Left-sided heart failure, high wedge pressure and also chronic obstructive pulmonary disease, and obstructive sleep apnea. Continue continuous positive airway pressure. Continue inhaled bronchodilators. The patient is also getting Lasix which will help his congestive symptoms from left-sided heart. 3. History of depression and anxiety, and insomnia. The patient seems doing well with Ambien, Strattera, and Wellbutrin. 4. Diabetes stable now. His sugar is better. Continue and reduce the insulin to 10 units of Levemir daily and that will monitor his sugar on a regular basis. 5. Fungal infection of toes. Continue nystatin powder between the toes, seen by Podiatry. We will follow up clinically. The patient seems stable. For his high cholesterol on Lipitor and Lovenox for deep vein thrombosis and Protonix for gastrointestinal prophylaxis. Continue current therapy. Discussed with the patient's and with the other consultants. Arya Booker MD
[2017-06-10] MEDS: Pantoprazole 40 mg EC Tab PO SCH (10:36)
[2017-06-10] MEDS: Magnesium Oxide 400 mg Tab UD PO SCH ×2 (10:36→17:40)
[2017-06-10] MEDS: Insulin Detemir 100 units/ml Vial (Levemir) SC SCH (10:36)
[2017-06-10] MEDS: POLYETHYLENE GLYCOL 3350 17 GM/Dose PACKET PO SCH (10:37)
[2017-06-10] MEDS: Fluticasone Nasal 50 mcg/Spray NS SCH (10:37)
[2017-06-10] MEDS: Nystatin 100,000 Units/gm Topical Pow(15 gm) TOP SCH (10:40)
--- NOTE | 2017-06-10 10:41 | PN ---
DATE: 06/10/2017 REASON FOR CONSULTATION AND FOLLOWUP: Cardiac evaluation, severe pulmonary hypertension, one-vessel coronary artery bypass graft, aortic valve replacement and mitral valve repair, status post right heart catheterization consistent with severe pulmonary hypertension on Pravachol. SUBJECTIVE: The patient denies any chest pain, shortness of breath,or any palpitation. Wanted to go home. OBJECTIVE/PHYSICAL EXAMINATION: As follows: GENERAL: Not in apparent distress. Lying flat on the bed. VITAL SIGNS: Temperature is afebrile, heart rate is 79, and blood pressure is 136/57. HEENT: PERRLA. Extraocular muscles are intact. NECK: Supple. No carotid bruits or thyromegaly. CHEST: Clear to auscultation. HEART: S1 and S2, regular. ABDOMEN: Soft. EXTREMITIES: Clubbing and cyanosis negative. LABORATORY DATA: Blood workup as follows: WBC of 5.3, hemoglobin of 10.9, hematocrit of 32.7, and platelet count of 191. Chemistry shows sodium of 133, potassium of 4.0, chloride of 90, carbon dioxide of 32, anion gap of 14, BUN of 33, and creatinine of 1.2. IMPRESSION: Pulmonary hypertension severe right ventricular systolic pressure by echocardiography 151, by catheterization 103. Preserved left ventricular function, ejection fraction of 65%, pulmonary vascular resistance 10.6 Wood units, status post aortic valve replacement, status post mitral valve repair, diabetes, hypertension, hyperlipidemia, right ventricular hypokinesis, severe aortic stenosis, and one-vessel bypass. RECOMMENDATION: Continue Revatio. Eventually, the patient needs aggressive treatment for pulmonary hypertension including endothelin receptor antagonist or bosentan antagonist or prostacyclin inhibitors. I discussed with Dr. Booker, interm, continue Primacor, and continue Revatio. CVA status is stable. No further cardiac workup is planned at this time. Continue gentle diuretics. We will follow with you. Monitor labs. Low dose beta jess. Thank you Dr. oBoker for providing us the opportunity in taking care of the patient, Emory Arboleda. Guru Sosa MD
--- NOTE | 2017-06-10 18:11 | CP.PCM.PN ---
<Geraldo Paredes - Last Filed: 06/10/17 18:07> Subjective - Date & Time of Evaluation Date of Evaluation: 06/10/17 Time of Evaluation: 18:08 - Subjective Subjective: Podiatry Progress Note - Dr. Kendall 82 year old male patient seen and evaluated at bedside for 4th interdigit ulceration. Patient is seen resting comfortably in bed, in NAD, and AA0x3. Patient denies of acute overnight events. Patient reports the same pain to the right foot. Patient has no other pedal complaints at this time. Patient denies n /v/sob/cp/chills/f or d. Objective - Vital Signs/Intake and Output Vital Signs (last 24 hours): Temp Pulse Resp BP Pulse Ox 97.9 F 74 20 133/53 L 98 06/10/17 12:00 06/10/17 12:00 06/10/17 12:00 06/10/17 12:00 06/10/17 06:00 Intake and Output: 06/10/17 06/10/17 06:59 18:59 Intake Total 96 100 Balance 96 100 - Medications Medications: Current Medications Atorvastatin Calcium (Lipitor) 40 mg PO DAILY [facility] Last Admin: 06/10/17 10:38 Dose: 40 mg Bupropion HCl (Wellbutrin) 75 mg PO BID [facility] Last Admin: 06/10/17 17:40 Dose: 75 mg Fluticasone Propionate (Flonase) 1 actuation NS DAILY [facility] Last Admin: 06/10/17 10:37 Dose: 2 spr Furosemide (Lasix) 40 mg PO DAILY [facility] Last Admin: 06/10/17 10:39 Dose: 40 mg Gabapentin (Neurontin) 100 mg PO DAILY [facility] Last Admin: 06/10/17 10:37 Dose: 100 mg Milrinone Lactate/Dextrose (Primacor 20mg/100ml D5w) 100 mls @ 8.057 mls/hr IV .[id number] PRN; Protocol; 0.375 MCG/KG/MIN PRN Reason: TITRATE PER MD ORDER Last Admin: 06/10/17 07:53 Dose: 0.375 mcg/kg/min, 8.057 mls/hr Insulin Detemir (Levemir) 10 unit SC DAILY [facility] Last Admin: 06/10/17 10:36 Dose: 10 unit Insulin Human Regular (Humulin R Low) 0 units SC ACHS [facility] PRN Reason: Protocol Last Admin: 06/10/17 17:38 Dose: Not Given Ipratropium Carson (Atrovent) 0.5 mg IH [id number] [facility] Last Admin: 06/10/17 13:54 Dose: 0.5 mg Ipratropium Carson (Atrovent) 0.5 mg IH [id number] PRN PRN Reason: Shortness of Breath Levalbuterol HCl (Xopenex) 1.25 mg IH [id number] [facility] Last Admin: 06/10/17 13:53 Dose: 1.25 mg Levalbuterol HCl (Xopenex) 0.63 mg IH [id number] PRN PRN Reason: Shortness of Breath Last Admin: 06/10/17 01:00 Dose: 0.63 mg Magnesium Oxide (Mag-Ox) 400 mg PO BID [facility] Last Admin: 06/10/17 17:40 Dose: 400 mg Metoprolol Tartrate (Lopressor) 12.5 mg PO Q12 [facility] Last Admin: 06/10/17 10:38 Dose: 12.5 mg Atomoxetine Hcl [ (Strattera] 60 Mg) 60 mg PO DAILY [facility] Last Admin: 06/10/17 10:43 Dose: Not Given Nystatin (Nystop Topical Powder) 0 gm TOP DAILY [facility] Last Admin: 06/10/17 10:40 Dose: Not Given Pantoprazole Sodium (Protonix Ec Tab) 40 mg PO DAILY [facility] Last Admin: 06/10/17 10:36 Dose: 40 mg Polyethylene Glycol (Miralax) 17 gm PO DAILY [facility] Last Admin: 06/10/17 10:37 Dose: 17 gm Sildenafil Citrate (Revatio) 20 mg PO Q8 [facility] Last Admin: 06/10/17 14:59 Dose: 20 mg Sodium Chloride (Haugen Nasal Granger) 0 ml NS TID PRN PRN Reason: Nasal congestion Zolpidem Tartrate (Ambien) 5 mg PO HS PRN; Protocol PRN Reason: Insomnia Last Admin: 06/09/17 22:23 Dose: 5 mg - Labs Labs: 06/08/17 13:00 06/10/17 05:45 PT 15.4 SECONDS (9.4-12.5) H 05/31/17 19:20 INR 1.40 (0.93-1.08) H 05/31/17 19:20 APTT 29.6 Seconds (25.1-36.5) 05/31/17 19:20 - Constitutional Appears: Well, Non-toxic, No Acute Distress - Exam Additional comments: Compression stockings present on bilateral LE. Dressing to right 5th digit appears clean/dry/intact. VASC: DP pulses palpable 2/4 b/l. PT pulses nonpalpable secondary to edema. [employer] : < 3 sec to all digits, TG: warm to cool from proximal to distal. +1 pitting edema noted to bilateral LE. DERM: Maceration noted to right 4th interspace, decreased since previous visit. Erythema noted to right 5th digit with small pinpoint ulceration on medial aspect of digit - no drainage, no purulence, no fluctuance, no ascending cellulitis. NEURO: Protective sensation grossly intact ORTHO: Mild pain on palpation of the 5th digit on the right foot. Pain upon ROM right foot 5th digit. - Neurological Exam Neurological Exam: Alert, Awake, Oriented x3 - Psychiatric Exam Psychiatric exam: Normal Affect, Normal Mood Assessment and Plan - Assessment and Plan (Free Text) Assessment: 82 year old male with ulceration to right 5th digit Plan: Patient seen and evaluated at bedside Discussed with attending, Dr. Kendall Vitals, labs, chart reviewed (Afebrile, WBC=5.6 on 06/08/17) Continue local wound care - QD betadine + Nystatin powder with DSD Continue compression stockings to bilateral LE Continue elevation for edema Podiatry will continue to follow patient while in house <Kath Kendall - Last Filed: 06/19/17 14:15> Objective - Vital Signs/Intake and Output Vital Signs (last 24 hours): Temp Pulse Resp BP Pulse Ox 97.8 F 109 H 25 H 134/55 L 97 06/19/17 12:00 06/19/17 14:00 06/19/17 14:00 06/19/17 12:00 06/19/17 14:00 Intake and Output: 06/19/17 06/19/17 06:59 18:59 Intake Total 200 Output Total 800 Balance -600 - Medications Medications: Current Medications Alprazolam (Xanax) 0.25 mg PO BID PRN; Protocol PRN Reason: Anxiety Stop: 06/22/17 18:01 Last Admin: 06/18/17 09:44 Dose: 0.25 mg Atorvastatin Calcium (Lipitor) 40 mg PO DAILY [facility] Last Admin: 06/19/17 09:13 Dose: 40 mg Enoxaparin Sodium (Lovenox) 30 mg SC DAILY [facility] PRN Reason: Protocol Last Admin: 06/19/17 09:15 Dose: 30 mg Fluticasone Propionate (Flonase) 1 actuation NS DAILY [facility] Last Admin: 06/19/17 09:16 Dose: 1 spr Gabapentin (Neurontin) 100 mg PO DAILY [facility] Last Admin: 06/19/17 09:14 Dose: 100 mg Glipizide (Glucotrol) 10 mg PO 0730,1630 [facility] Last Admin: 06/19/17 08:30 Dose: 10 mg Home Med (Home Med) 1 unit PO DAILY [facility] Last Admin: 06/19/17 09:17 Dose: 1 unit Milrinone Lactate/Dextrose (Primacor 20mg/100ml D5w) 100 mls @ 4.297 mls/hr IV .[id number] PRN; Protocol; 0.2 MCG/KG/MIN PRN Reason: TITRATE PER MD ORDER Last Admin: 06/18/17 22:44 Dose: 0.2 mcg/kg/min, 4.297 mls/hr Iron Sucrose 200 mg/ Sodium (Chloride) 110 mls @ 110 mls/hr IVPB ONCE ONE Stop: 06/20/17 10:59 Insulin Detemir (Levemir) 10 unit SC [facility] Insulin Human Lispro (Humalog Low) 0 units SC ACHS [facility] PRN Reason: Protocol Last Admin: 06/19/17 12:49 Dose: Not Given Insulin Human Lispro (Humalog) 3 units SC ACHS [facility] Last Admin: 06/19/17 13:05 Dose: 3 units Ipratropium Carson (Atrovent) 0.5 mg IH [id number] [facility] Last Admin: 06/19/17 13:34 Dose: 0.5 mg Levalbuterol HCl (Xopenex) 1.25 mg IH [id number] [facility] Last Admin: 06/19/17 13:34 Dose: 1.25 mg Levalbuterol HCl (Xopenex) 0.63 mg IH [id number] PRN PRN Reason: Shortness of Breath Last Admin: 06/15/17 15:07 Dose: 0.63 mg Methylprednisolone (Solu-Medrol) 20 mg IVP DAILY [facility] Last Admin: 06/19/17 09:15 Dose: 20 mg Atomoxetine Hcl [ (Strattera] 60 Mg) 60 mg PO DAILY [facility] Last Admin: 06/19/17 09:18 Dose: Not Given Nystatin (Nystop Topical Powder) 0 gm TOP DAILY [facility] Last Admin: 06/19/17 09:17 Dose: 1 applic Pantoprazole Sodium (Protonix Ec Tab) 20 mg PO ACB [facility] Last Admin: 06/19/17 08:30 Dose: 20 mg Polyethylene Glycol (Miralax) 17 gm PO DAILY [facility] Last Admin: 06/19/17 09:15 Dose: 17 gm Polysaccharide Iron Complex (Ferrex-150) 150 mg PO DAILY [facility] Last Admin: 06/19/17 09:13 Dose: 150 mg Sevelamer HCl (Renagel) 800 mg PO TID [facility] Last Admin: 06/19/17 13:07 Dose: 800 mg Sildenafil Citrate (Revatio) 20 mg PO Q8 [facility] Last Admin: 06/19/17 13:07 Dose: 20 mg Sodium Chloride (Haugen Nasal Granger) 0 ml NS TID PRN PRN Reason: Nasal congestion Zolpidem Tartrate (Ambien) 5 mg PO HS PRN; Protocol PRN Reason: Insomnia Last Admin: 06/16/17 23:05 Dose: 5 mg - Labs Labs: 06/19/17 05:30 06/19/17 05:30 PT 15.4 SECONDS (9.4-12.5) H 05/31/17 19:20 INR 1.40 (0.93-1.08) H 05/31/17 19:20 APTT 29.6 Seconds (25.1-36.5) 05/31/17 19:20 Attending/Attestation - Attestation I have personally seen and examined this patient.: Yes I have fully participated in the care of the patient.: Yes I have reviewed all pertinent clinical information, including history, physical exam and plan: Yes
--- NOTE | 2017-06-10 21:04 | PN ---
DATE: 06/10/2017 PULMONARY PROGRESS NOTE REFERRING PHYSICIAN: rAya Booker MD SUBJECTIVE: The patient is sitting side of the bed, having dinner. Night was unremarkable. Feels better. No headache. No rhinitis. No nausea. No vomiting. No diarrhea. No leg pain or leg swelling. OBJECTIVE: GENERAL: In no acute distress. VITAL SIGNS: Temperature is 98, heart rate is 82, respiratory rate is 20, blood pressure is 118/53 and pulse ox is 94% on nasal cannula. HEENT: Moist mucous membranes. Crowded airway. Mallampati score is IV. NECK: Supple. No JVD. LUNGS: Has a fair airflow with few rhonchi. HEART: S1 and S2. ABDOMEN: Soft, nontender. No organomegaly. EXTREMITIES: There is no edema. NEUROLOGICALLY: Awake and alert. Follow simple commands. MEDICATIONS: He is on Ambien 5 mg at bedtime p.r.n., Atrovent 0.5 mg q. 6 hours p.r.n., Flonase one spray each nostril daily, Lasix 40 mg daily, insulin coverage, Lipitor 40 mg daily, metoprolol tartrate 12.5 mg twice a day, magnesium oxide 400 mg twice a day, MiraLax 17 g daily, gabapentin 100 mg daily, nasal saline spray each nostril 3 times a day p.r.n., Primacor IV drip, Protonix 40 mg daily, Revatio 20 mg q. 8 hours, Wellbutrin 75 mg twice a day, Xopenex inhaled q. 6 hours. LABORATORY DATA: Reviewed and noticed; sodium 133, potassium 4.3, chloride 92, bicarb 32, BUN 33, creatinine 1.2, glucose 135, calcium 9.2, AST 45, ALT 55, alkaline phosphatase is 126, albumin is 3.4. IMPRESSION AND PLAN: Severe pulmonary hypertension, right heart failure, cardiac asthma, valvular heart disease, activities of daily living dysfunction. Continue Revatio, Letairis 5 mg, samples brought by me from the office given to the nursing staff to start the patient on Letairis 5 mg daily and if he does okay, we will start tapering down Primacor by tomorrow. Continue diuretics, fall precaution, gastric prophylaxis. Thank you and we will follow with you. Guru Bustos MD
[2017-06-10] MEDS: Ipratropium 0.02% Inhal Soln (0.5 mg/2.5 ml) UD IH PRN (22:18)
[2017-06-11] MEDS: LETAIRIS 5 MG PO SCH ×2 (00:18→10:41)
[2017-06-11] MEDS: Ipratropium 0.02% Inhal Soln (0.5 mg/2.5 ml) UD IH SCH ×4 (01:50→19:42)
[2017-06-11] MEDS: Levalbuterol 1.25 MG/3 ML Inhal Soln UD IH SCH ×5 (01:50→19:43)
[2017-06-11] MEDS: Sildenafil 20 MG TAB PO SCH ×3 (05:52→22:49)
[2017-06-11] MEDS: Milrinone 20mg/100ml D5W 100 ML IV PRN ×2 (09:07→19:38)
--- NOTE | 2017-06-11 09:47 | PQF RESP ---
This form is a permanent part of the medical record Dr. Bustos, Please provide more specificity for progress note of 06/06 "severe pulmonary HTN with cardiac asthma with respiratory failure". Please specify if this diagnosis was present on admission and acuity (acute, chronic, acute on chronic) . Clarification of your documentation is requested to better reflect the severity of illness and intensity of treatment of your patient. Indicators present [] Use of Home Oxygen [] Respiratory rate > 28 or <8/min (Labored respirations) [] PCO2 > 50 mm Hg or (Hypercapnia) (somnolence) [] PaO2 < 60 mm Hg or Hypoxemia (confusion) [] ABG blood gas pH < 7.35 [] SpO2 < 90% sat on Room Air [] Cyanosis [] Unable to Speak in Full Sentences [] Use of Accessory Muscles / Tripoding [] Wheezing [] Other: [] Location in the medical record that reflects the above clinical findings: [] Treatment Provided: [] PHYSICIAN'S RESPONSE Based on your medical judgment of the clinical indicators outlined above, are you treating this patient for a known or suspected: [] Acute Respiratory Failure (hypoxia or hypercapnia) [] Chronic Respiratory Failure (hypoxia or hypercapnia) [] Acute on Chronic Respiratory Failure (hypoxia or hypercapnia) [] Hypoxemia please specify ACUTE, CHRONIC or ACUTE on CHRONIC [] Other []_ [] If unable to determine, please check the box, sign and date. Present On Admission (POA) Indicator: [] Present at the time of admission [] Not present at the time of admission [] Clinically Undetermined In responding to this query, please exercise your independent professional judgment. The fact that a question is asked does not imply that any particular answer is desired or expected. Thank you for your clarification on this documentation. 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 In theory, respiratory failure is defined as a Pa02 value of <60 mm/Hg or a PaC02 of >50 mm/Hg. However, these values may be affected by renal compensation. Respiratory failure may be acute or chronic. While acute respiratory failure is characterized by life-threatening derangement in arterial blood gases and acid-base balance, the manifestations of chronic respiratory failure are less dramatic and may not be as readily apparent. Classifications: Respiratory failure may be classified as hypoxemic (usually characterized by Pa02 of <60 mm/Hg) or hypercapnic (usually characterized by PaC02 >50 mm/Hg) and either may be acute or chronic. Chronic hypercapnic respiratory failure develops over time and allows for renal compensation and an increase in bicarbonate concentration; therefore the pH is usually only slightly decreased. The distinction between acute and chronic hypoxemic respiratory failure cannot readily be made on the basis of ABGs; the clinical markers of chronic hypoxemia, such as polythycemia or cor pulmonale suggest a long standing disorder (chronic hypoxemic respiratory failure). Clinical Indicators: dyspnea at rest or "chronic" dyspnea, concomitant conditions such as polycythemia or cor pulmonale, requirement for continuous oxygen support, forced expiratory volume in one second (FEV1) of 49 or less, pursed lip breathing, "barrel" chest, hyperinflation by CXR, muscle wasting, malnutrition/obesity, poor exercise capacity, peripheral edema, description as a "blue bloater" (usually associated with chronic, obstructive bronchitis) or "pink puffer" (usually associated with emphysema) Risks: Chronic Hypoxemic Respiratory Failure - COPD, pulmonary fibrosis, asthma , pulmonary arterial hypertension, granulomatous lung diseases, congenital heart disease, bronchiectasis, kyphoscoliosis, obesity; Chronic Hypercapnic Respiratory Failure - COPD, severe asthma, myasthenia gravis, polyneuropathy, polio, head and cervical spine injuries, obesity hypoventilation syndrome. Treatment: supplemental oxygen, bronchodilators, corticosteroids, adequate nutrition, lung transplant References: Am. J. Respir. Crit. Care Med. "Global Strategy for the Diagnosis, Management and Prevention of COPD: GOLD Exectuive Summary," Kaden Perez Anzueto - 2007; Proceedings of the [place] [employer] "Mechanisms and Measurements of Dyspnea in COPD," Jadon - 2006; WebMD; Respiratory Failure, Alexandr Greene MD - 12/2005; Kael's Principles of Internal Medicine, 17th edition. Acute Respiratory Failure Acute Respiratory Failure indicators include: ~Respirations >28 ~Air hunger ~Use of accessory muscles of respiration ~Inability to speak in full sentences Cyanosis ~Pulse ox <90% RA or <95% on O2 pH <7.35 or >7.45 ~pO2 < 60 mm Hg (or 10mm below COPD patient's baseline) ~pCO2 >50mm Hg (or 10mm above COPD patient's baseline) "Respiratory failure may be assigned as a principal diagnosis when it is the condition established after study to be chiefly responsible for occasioning admission to the hospital. The fact that the respiratory failure was managed without intubation and mechanical ventilation does not preclude its use." [facility], 3rd Qtr., 1988, p. 7 MTDD
[2017-06-11] MEDS: Insulin Reg-LOW-Coverage SC SCH ×4 (10:30→21:47)
[2017-06-11] MEDS: Insulin Detemir 100 units/ml Vial (Levemir) SC SCH (10:39)
[2017-06-11] MEDS: POLYETHYLENE GLYCOL 3350 17 GM/Dose PACKET PO SCH (10:40)
[2017-06-11] MEDS: Fluticasone Nasal 50 mcg/Spray NS SCH (10:41)
[2017-06-11] MEDS: Pantoprazole 40 mg EC Tab PO SCH (10:42)
[2017-06-11] MEDS: Magnesium Oxide 400 mg Tab UD PO SCH ×2 (10:42→18:12)
[2017-06-11] MEDS: Ipratropium 0.02% Inhal Soln (0.5 mg/2.5 ml) UD IH PRN ×3 (11:12→23:56)
--- NOTE | 2017-06-11 11:12 | PN ---
DATE: 06/11/2017 REASON FOR CONSULTATION: Cardiac evaluation, pulmonary hypertension, CAD, one-vessel CABG, status post aortic valve replacement, and bioprosthetic mitral valve repair. SUBJECTIVE: The patient denies any chest pain, shortness of breath, or any palpitations. Feels a lot better. OBJECTIVE: GENERAL: Not in apparent distress, lying flat on the bed, and waiting for the breakfast. VITAL SIGNS: Temperature afebrile, heart rate 84, and blood pressure 118/48. HEENT: PERRLA. Extraocular muscles intact. NECK: Supple. No carotid bruits or thyromegaly. CHEST: Clear to auscultation. HEART: S1 and S2, regular. ABDOMEN: Soft. EXTREMITIES: Clubbing and cyanosis negative. LABORATORY DATA: Blood workup as follows: WBC 5.6, hemoglobin 10.9, hematocrit 32.7, and platelet count 191. Chemistry shows sodium 133, potassium 4.3, chloride 92, carbon dioxide 32, anion gap of 14, BUN 33, and creatinine 1.2. IMPRESSION: Pulmonary hypertension, pulmonary artery pressure by invasive right heart catheterization 103, right heart failure, status post aortic valve replacement, status post one-vessel coronary artery bypass graft, status post mitral valve repair. Recent echocardiogram showed ejection fraction of 65%, pulmonary vascular resistance 10.6 Wood unit, diabetes, hypertension, hyperlipidemia, severe aortic stenosis, status post aortic valve replacement prior to bioprosthetic aortic stenosis. RECOMMENDATION: Continue Revatio. Continue aggressive treatment for pulmonary hypertension as per Pulmonary. CVA status is stable. We will follow with you. Continue gentle diuretics. Low-dose beta jess. Supplement electrolytes as needed. Continue Revatio in the interim 20 mg three times a day. Thank you Dr. Booker for providing us the opportunity in taking care of the patient. Guru Sosa MD
--- NOTE | 2017-06-11 12:48 | PN ---
DATE: 06/10/2017 SUBJECTIVE: The patient is in telemetry floor, comfortable, rundown. No distress. No chest pain. No short of breath. PHYSICAL EXAMINATION: As follows: VITAL SIGNS: Temperature 97.6, heart rate 82, blood pressure 118/53, respirations 20, and given good saturation above 90 on 40%. HEAD AND NECK: Normal. No JVD. No thyromegaly. CHEST: Clear. Good air entry. CARDIAC: First sound and second sound normal. ABDOMEN: Soft and nontender. EXTREMITIES: No edema. NEUROLOGIC: Normal. LABORATORY STUDIES: Sodium 133, potassium 4.3, chloride 92, bicarb 32, BUN 33, creatinine 1.2, blood sugar 135. Liver function test is normal. PT 15.4, INR 1.40, PTT 29.6. IMPRESSION AND PLAN: 1. Severe pulmonary hypertension complicated by chronic obstructive pulmonary disease - obstructive sleep apnea - had a congested concomitant with congestive heart failure, systolic and diastolic heart failure, chronic. We will continue Revatio. Continue inhaled bronchodilators. Still waiting on the pharmacy approval over the medication. 2. Diabetes. Insulin-dependent diabetes. His blood sugar is better. No hypoglycemic events. Blood sugar 120s to 140s. Continue current therapy. 3. Doubt adult attention-deficit syndrome with chronic anxiety, chronic insomnia, and depression. Continue Wellbutrin. Continue Josey Balderas, and we will follow up clinically. 5. Hypercholesterolemia. 6. Coronary artery disease, chronic, status post bypass surgery, mitral valve repair, aortic valve replacement, stable. High wedge pressure on right heart cath. Continue Lasix. Continue current therapy. 7. Generalized weakness. We will consider physical therapy. At this time, continue current therapy including IV milrinone and Lasix. Arya Booker MD
[2017-06-11] MEDS: Nystatin 100,000 Units/gm Topical Pow(15 gm) TOP SCH (13:06)
[2017-06-11] MEDS: Levalbuterol 0.63 MG/3 ML Inhal Soln UD IH PRN ×2 (14:22→23:56)
--- NOTE | 2017-06-11 15:39 | PN ---
DATE: 06/11/2017 PULMONARY PROGRESS NOTE REFERRING PHYSICIAN: Arya Booker MD SUBJECTIVE: The patient is lying in the bed, flat, head down. Feeling short of breath. No headache. No rhinitis. No nausea. No vomiting, diarrhea, leg pain, or leg swelling. OBJECTIVE: GENERAL: Mild distress secondary to shortness of breath. VITAL SIGNS: Temperature is 98, heart rate is 75, respiratory rate is 20-22, blood pressure is 142/66, and pulse oximetry is 98% on BiPAP this morning. HEENT: Moist mucous membrane. Crowded airway. NECK: Supple. No JVD. LUNGS: Has a good airflow. HEART: S1 and S2. ABDOMEN: Soft and nontender. No organomegaly. EXTREMITIES: No edema. NEUROLOGIC: Awake, alert, follows simple commands. MEDICATIONS: He is on Ambien 5 mg at bedtime p.r.n., Atrovent nebulizer q.4 hours p.r.n., q.6 hours around the clock, Flonase 1 spray each nostril daily, also on Lasix 40 mg daily, Levemir 10 units subcutaneously daily, Lipitor 40 mg daily, metoprolol tartrate 12.5 mg twice a day, magnesium oxide 400 mg twice a day, MiraLax 17 g daily, Neurontin 100 mg daily, nasal saline each nostril 3 times a day, Primacor IV drip, Protonix 40 mg daily, Revatio 20 mg q.8 hours, Wellbutrin 75 mg twice a day, Xopenex inhaled q.6 hours, and also on Letairis 5 mg daily, which is home medication. LABORATORY DATA: Shows hemoglobin 10.9, hematocrit 32.7 that was 2 days ago. Blood sugar of 300. IMPRESSION AND PLAN: Severe pulmonary hypertension, right heart failure, valvular heart disease, may be component chronic lung disease. I spoke to nursing staff suggested to keep his head elevated to above 45 degree all the time. Continue Primacor. Continue Revatio. Letairis is added 5 mg daily. Lasix 40 mg IV one dose being given and also suggested to give him nebulizer treatment. Will need followup labs in the morning and we will follow with you. Guru Bustos MD [facility] # [id number]
[2017-06-11] MEDS: Enoxaparin 40 mg Syringe SC SCH (15:44)
--- NOTE | 2017-06-11 20:17 | PN ---
DATE: 06/11/2017 SUBJECTIVE: This is an 82-year-old male seen for pain in the interspace of the arm, 4th interspace on his right foot. He is seen at bedside receiving a respiratory treatment. He is wearing FILIBERTO hose. He states his foot is not in pain at this time. Upon removal of the dressing, he does experience pain with removal of the Betadine dressing. He has a callus on the medial aspect of the fifth toe which I believe is the source of all of his problems. At this time, there is no ulceration. There was a small pinpoint hole in the callus at one point, but it has gone on to heal since he has been in the hospital . I spoke to patient at bedside telling him that his shoes most likely was the cause of the problem. I believe his legs and feet are swelling during the day which is causing the shoes to tighten upon him causing a rub between the fourth and the fifth toes. I suggest the patient put cotton between his toes when wearing shoes and in the meantime, we are going to continue with the Betadine, but discontinue any kind of dressing to his foot. He will be seen and followed. Kath Kendall DPM
[2017-06-11 20:48] LABS: BLOOD UREA NITROGEN 31 mg/dL (7-21); GFR AFRICAN-AMERICAN > 60; GFR NON-AFRICAN AMERICAN > 60
--- NOTE | 2017-06-11 21:35 | PN ---
DATE: 06/11/2017 SUBJECTIVE: This patient was seen and evaluated earlier today. The patient has increased shortness of breath, on BiPAP now. PHYSICAL EXAMINATION: VITAL SIGNS: Temperature is 97.8, pulse 80, blood pressure is 109/45, respiration is 20. HEENT: Atraumatic and anicteric. NECK: Supple. HEART: S1 and S2 heard. LUNGS: Bilateral air entry present. EXTREMITIES: No cyanosis, no clubbing. No edema. LABORATORY DATA: LFTs done yesterday was reviewed, completely normalized. IMPRESSION: This is an 82-year-old patient with severe pulmonary hypertension, valvular heart disease, coronary artery disease, has had an elevated LFTs, which is now normalized and has history of CBD gallstones, CBD was normal. The patient has normocytic anemia. I would consider iron studies, B12 and folate. Thank you very much for allowing us to participate in the care of the patient. Karly Fraser MD
[2017-06-11] MEDS ORDERED: Iohexol 350 MG/100 ML VIAL ONE (22:38)
[2017-06-12] MEDS ORDERED: Metoprolol 1 mg/ml Inj IVP ONE ×2 (00:03→00:04)
--- NOTE | 2017-06-12 00:08 | PN ---
DATE: 06/11/2017 SUBJECTIVE: The patient had a period of short of breath, earlier seen by Dr. Bustos, IV Lasix was given. The patient right now on BiPAP. He feels better compared to earlier. He denied any chest pain, any fever, any chills, any other complaint. The patient is currently on BiPAP, Atrovent nebulizer treatment, IV Lasix. PHYSICAL EXAMINATION: VITAL SIGNS: Temperature 98, heart rate 75, blood pressure 118/48, respiratory rate 18, saturation is about 92%. HEAD AND NECK: Normal. No JVD. No thyromegaly. CHEST: Clear, good air entry. CARDIAC: First sound and second sound normal. ABDOMEN: Soft and nontender. EXTREMITIES: No edema. NEUROLOGIC: Normal. LABORATORY STUDIES: Chemistry noted for blood sugar 119, sodium 133, potassium 4.3, chloride 92, bicarb 32, BUN 33, creatinine 1.2, blood sugar 135. Liver function test is normal. We will reorder labs in the morning, CBC and basic metabolic panel. IMPRESSION AND PLAN: 1. Acute congestive heart failure, severe pulmonary hypertension, obstructive sleep apnea, and chronic obstructive pulmonary disease. The patient's plan is to continue current therapy, continue BiPAP machine, nebulizer treatment. The patient already had Revatio 20 mg three time a day, Xopenex 4 times a day and every 3 hours p.r.n. The patient is also getting a new medication for pulmonary hypertension by , steroid other one. We will continue Lasix 40 mg, we will change it to IV and we will followup clinically. 2. Diabetes, insulin-dependent, blood sugar runs a little bit high. We will monitor it, we may need to increase gradually his insulin. 3. Anxiety and depression. Continue Ambien, Strattera, Wellbutrin, and we will followup clinically. Continue gastrointestinal and deep venous thrombosis prophylaxis. The patient is getting Curlew spray; getting Lovenox, he missed one dose, but he has been getting it everyday. He is getting also Protonix 40 mg p.o. daily. Continue current therapy. We will followup. We will discuss this with Dr. Bustos the case. Arya Booker MD
[2017-06-12 00:14] LABS: ARTERIAL BLOOD GAS HCO3 27.6 mmol/L (21-28); ARTERIAL BLOOD GAS HEMOGLOBIN 11.7 g/dL (11.7-17.4); ARTERIAL BLOOD GAS O2 CAPACITY 16.2 mL/dl (16-24); ARTERIAL BLOOD GAS PCO2 56 mm/Hg (35-45); ARTERIAL BLOOD GAS TCO2 29.3 mmol.L (22-28)
--- NOTE | 2017-06-12 00:21 | CT ---
EXAM: CT Angiography Chest With Intravenous Contrast EXAM DATE/TIME: 06/11/2017 7:27 PM CLINICAL HISTORY: 82 years old, male; Signs and symptoms; Dyspnea TECHNIQUE: Axial computed tomographic angiography images of the chest with intravenous contrast using pulmonary embolism protocol. All CT scans at this facility use one or more dose reduction techniques, viz.: automated exposure control; ma/kV adjustment per patient size (including targeted exams where dose is matched to indication; i.e. head); or iterative reconstruction technique. MIP reconstructed images were created and reviewed. Coronal and sagittal reformatted images were created and reviewed. CONTRAST: 94 mL of omnipaque 350 administered intravenously. COMPARISON: CT - ANGIO CHEST PE PROTOCOL 2017-05-04 19:20 FINDINGS: Sternotomy wires. Cardiomegaly similar to prior. No pulmonary embolism. Main pulmonary artery is again seen to be prominent. No aortic dissection or aneurysm. There are moderate-sized bilateral pleural effusions increased since prior. There is bilateral lower lung consolidation /compressive atelectasis increased since prior. There are scattered hazy groundglass opacities which are nonspecific however may represent developing edema especially as there appears to be a small amount of interlobular septal thickening in addition to the increased effusions. Again seen are multiple mediastinal lymph nodes, most notably to the left of the aortic arch and in the supra-and subcarinal region. The largest lymph node on prior study measured 2 x 1.5 cm in the subcarinal region and now measures 2 x 2 centimeters. Small hilar lymph nodes are also present are noted within the right Cholelithiasis. IMPRESSION: Bilateral pleural effusions increased. Bilateral lower lung consolidation increased. Mediastinal and hilar lymph nodes for which continued surveillance may be helpful.
[2017-06-12] MEDS ORDERED: Propofol 10 mg/ml Inj (20 ML) IVP ONE (00:28)
--- NOTE | 2017-06-12 01:00 | PCM.RRT ---
<Slick Holland - Last Filed: 06/12/17 00:56> HOSPITAL TECHNICIAN Nurse Assessment - Situation Date: 06/11/17 Time HOSPITAL TECHNICIAN was called: 23:45 HOSPITAL TECHNICIAN Responder Arrival Time: 23:55 HOSPITAL TECHNICIAN Location:: [address] [place] [address] Room Number: 272 HOSPITAL TECHNICIAN Reason for Call: Tachycardia, Hypotension (On initial measurement, patient was hypotensive, but this was noted to be erroneous when reassessed with manual BP), Respiratory Distress, O2 Saturation below 90%, Looks Sicker HOSPITAL TECHNICIAN Called By: RN - IV IV Inserted during HOSPITAL TECHNICIAN?: No - Respiratory Oxygen Delivery Method: BiPAP @% (40) Received Nebulizer Treatments:: Yes (Xoponex) Was the Patient Ventilated with Bag/Mask 100% O2?: No Secretions Suctioned?: No Was the Patient Intubated?: No Was the Patient Placed on a Ventilator?: No - Medication Medications Administered During HOSPITAL TECHNICIAN: Lopressor 5mg IVP. Lasix 40mg IVP. Solumedrol 125mg IVP - Diagnostic Test Ordered EKG: No Chest X-Ray: Yes CT Scan: No (Ct scan done prior) - Stat Labs Ordered HOSPITAL TECHNICIAN Stat Labs Ordered: ABG CPR started during HOSPITAL TECHNICIAN?: No - Vital Signs Vital Sign: Rapid Response Vital Sign Blood Pressure 41/26 - Repeat 220/90 L arm, 230/90 R arm checked manually Pulse Rate 125 Respiratory Rate 40 Temperature 98 F Oxygen Saturation 79 - Finger Stick Blood Glucose Finger Stick Blood Glucose: 173 - Mobile Coma Scale Coma Scale Eye Opening: To verbal stimuli Coma Scale Motor: Obeys Commands Movement Coma Scale Verbal: Oriented - Time HOSPITAL TECHNICIAN Ended Time HOSPITAL TECHNICIAN Ended: 00:35 - Vital Signs at end of HOSPITAL TECHNICIAN Vital Signs at end of HOSPITAL TECHNICIAN: Rapid Response End Vital Sign Blood Pressure 220/90 Pulse Rate 121 Respiratory Rate 40 O2 Sat by Pulse Oximetry 99 - Recommendations 5) HOSPITAL TECHNICIAN Level of Care Recommendations: Transfer to ICU Notifications: Attending Physician - Respiratory Oxygen Delivery Method: BiPAP @% <Tucker Colvin - Last Filed: 06/13/17 06:30> HOSPITAL TECHNICIAN Nurse Assessment - Vital Signs Vital Sign: Rapid Response Vital Sign Blood Pressure 41/26 Pulse Rate 125 Respiratory Rate 40 Temperature 98 F Oxygen Saturation 79 - Vital Signs at end of HOSPITAL TECHNICIAN Vital Signs at end of HOSPITAL TECHNICIAN: Rapid Response End Vital Sign Blood Pressure 220/90 Pulse Rate 121 Respiratory Rate 40 O2 Sat by Pulse Oximetry 99
[2017-06-12] MEDS: Levalbuterol 1.25 MG/3 ML Inhal Soln UD IH SCH ×4 (01:02→21:54)
[2017-06-12] MEDS: Ipratropium 0.02% Inhal Soln (0.5 mg/2.5 ml) UD IH SCH ×4 (01:08→21:55)
[2017-06-12] MEDS ORDERED: Ipratropium 0.02% Inhal Soln (0.5 mg/2.5 ml) UD IH ONE (01:08)
--- NOTE | 2017-06-12 01:08 | CP.PCM.CON ---
<Ritu Horowitz - Last Filed: 06/12/17 01:09> History of Present Illness - History of Present Illness History of Present Illness: ICU Consult Note for Dr. Chavez 82 year old British male PMHx severe pulmonary hypertension, hypertension, CAD , DM II, CHF s/p CABG and aortic valve replacement (bioprosthetic) transferred to ICU s/p CLINICAL WRITER for respiratory distress. Patient is known to service and was recently in the ICU 05/31. Patient had returned from CT scan and started to become SOB and tachycardic. He was placed on BiPAP and given 2 xopenex treatments, 1 dose of 40mg ivp lasix, and 1 dose of solumedrol. Patient did not symptomatically improve and patient was transferred to ICU on BiPAP. Patient was spoken to regarding intubation and he agreed to be intubated if needed. He denied any chest pain but could not speak in complete sentences due to dyspnea. Complete ROS unobtainable secondary to condition. PMHx: severe pulmonary hypertension, hypertension, CAD, DM II, CHF s/p CABG and aortic valve replacement (bioprosthetic) PSurgHx: CABG in 1999 and aortic valve replacement in 2006, left femoral neck fracture ORIF ALL: NKDA Meds: see MAR PMD: Dr. Booker Review of Systems - Review of Systems Systems not reviewed;Unavailable: Acuity of Condition Past Patient History - Infectious Disease Hx of Infectious Diseases: None - Tetanus Immunizations Tetanus Immunization: Unknown - Past Medical History & Family History Past Medical History?: Yes - Past Social History Smoking Status: Never Smoked - CARDIAC Hx Congestive Heart Failure: Yes Hx Hypertension: Yes - PULMONARY Hx Chronic Obstructive Pulmonary Disease (COPD): Yes - NEUROLOGICAL HX Cerebrovascular Accident: Yes - HEENT Hx HEENT Problems: Yes Hx Glaucoma: Yes - RENAL Hx Chronic Kidney Disease: No - ENDOCRINE/METABOLIC Hx Diabetes Mellitus Type 2: Yes - HEMATOLOGICAL/ONCOLOGICAL Hx Blood Disorders: Yes (blood transfusion) - INTEGUMENTARY Hx Dermatological Problems: Yes Other/Comment: BILATERAL LE EDEMA MORE TO LEFT WITH DARKENED BROWN SKIN DISCOLORATION. - MUSCULOSKELETAL/RHEUMATOLOGICAL Hx Falls: Yes - GASTROINTESTINAL Hx Gastrointestinal Disorders: Yes (CONSTIPATION) Hx Gastroesophageal Reflux: Yes - GENITOURINARY/GYNECOLOGICAL Hx Genitourinary Disorders: Yes (ERECTILE DYSFUNCTION,BPH) Hx Prostate Problems: Yes - PSYCHIATRIC Hx Psychophysiologic Disorder: Yes (MEMORY LOSS) Hx Anxiety: Yes Hx Depression: Yes Hx Substance Use: No - SURGICAL HISTORY Hx Open Heart Surgery: Yes (CABG 1999) Hx Valve Replacement: Yes (2006) - ANESTHESIA Hx Anesthesia: Yes Hx Anesthesia Reactions: No Hx Malignant Hyperthermia: No Meds Allergies/Adverse Reactions: Allergies Allergy/AdvReac Type Severity Reaction Status Date / Time No Known Allergies Allergy Verified 05/20/17 19:36 - Medications Medications: Current Medications Atorvastatin Calcium (Lipitor) 40 mg PO DAILY [facility] Last Admin: 06/11/17 10:42 Dose: 40 mg Bupropion HCl (Wellbutrin) 75 mg PO BID [facility] Last Admin: 06/11/17 18:12 Dose: 75 mg Enoxaparin Sodium (Lovenox) 40 mg SC DAILY [facility] PRN Reason: Protocol Last Admin: 06/11/17 15:44 Dose: 40 mg Fluticasone Propionate (Flonase) 1 actuation NS DAILY [facility] Last Admin: 06/11/17 10:41 Dose: 2 spr Furosemide (Lasix) 40 mg IVP DAILY [facility] Gabapentin (Neurontin) 100 mg PO DAILY [facility] Last Admin: 06/11/17 10:40 Dose: 100 mg Home Med (Home Med) 1 unit PO DAILY [facility] Last Admin: 06/11/17 10:41 Dose: 1 unit Milrinone Lactate/Dextrose (Primacor 20mg/100ml D5w) 100 mls @ 8.057 mls/hr IV .[id number] PRN; Protocol; 0.375 MCG/KG/MIN PRN Reason: TITRATE PER MD ORDER Last Admin: 06/11/17 19:38 Dose: 0.375 mcg/kg/min, 8.057 mls/hr Insulin Detemir (Levemir) 10 unit SC DAILY [facility] Last Admin: 06/11/17 10:39 Dose: 10 unit Insulin Human Regular (Humulin R Low) 0 units SC ACHS [facility] PRN Reason: Protocol Last Admin: 06/11/17 21:47 Dose: Not Given Ipratropium [place] (Atrovent) 0.5 mg IH [id number] [facility] Last Admin: 06/11/17 19:42 Dose: 0.5 mg Ipratropium [place] (Atrovent) 0.5 mg IH [id number] PRN PRN Reason: Shortness of Breath Last Admin: 06/11/17 23:56 Dose: 0.5 mg Levalbuterol HCl (Xopenex) 1.25 mg IH [id number] [facility] Last Admin: 06/11/17 19:43 Dose: 1.25 mg Levalbuterol HCl (Xopenex) 0.63 mg IH [id number] PRN PRN Reason: Shortness of Breath Last Admin: 06/11/17 23:56 Dose: 0.63 mg Magnesium Oxide (Mag-Ox) 400 mg PO BID [facility] Last Admin: 06/11/17 18:12 Dose: 400 mg Metoprolol Tartrate (Lopressor) 12.5 mg PO Q12 [facility] Last Admin: 06/11/17 22:49 Dose: 12.5 mg Atomoxetine Hcl [ (Strattera] 60 Mg) 60 mg PO DAILY [facility] Last Admin: 06/10/17 10:43 Dose: Not Given Nystatin (Nystop Topical Powder) 0 gm TOP DAILY [facility] Last Admin: 06/11/17 13:06 Dose: Not Given Pantoprazole Sodium (Protonix Ec Tab) 40 mg PO DAILY [facility] Last Admin: 06/11/17 10:42 Dose: 40 mg Polyethylene Glycol (Miralax) 17 gm PO DAILY [facility] Last Admin: 06/11/17 10:40 Dose: 17 gm Sildenafil Citrate (Revatio) 20 mg PO Q8 [facility] Last Admin: 06/11/17 22:49 Dose: 20 mg Sodium Chloride ([place] Nasal [place]) 0 ml NS TID PRN PRN Reason: Nasal congestion Zolpidem Tartrate (Ambien) 5 mg PO HS PRN; Protocol PRN Reason: Insomnia Last Admin: 06/11/17 23:29 Dose: 5 mg Physical Exam - Constitutional Appears: In Acute Distress - Head Exam Head Exam: ATRAUMATIC, NORMAL INSPECTION, NORMOCEPHALIC - Eye Exam Eye Exam: EOMI, Normal appearance, PERRL. absent: Conjunctival injection, Scleral icterus Pupil Exam: NORMAL ACCOMODATION - ENT Exam ENT Exam: Mucous Membranes Dry Additional comments: BiPAP mask in place - Neck Exam Neck exam: Negative for: Lymphadenopathy - Respiratory Exam Respiratory Exam: Wheezes, Respiratory Distress (accessory muscle use). absent : Clear to Auscultation Bilateral - Cardiovascular Exam Cardiovascular Exam: Tachycardia, +S1, +S2 - GI/Abdominal Exam GI & Abdominal Exam: Normal Bowel Sounds, Soft. absent: Firm, Guarding, Rigid, Tenderness - Extremities Exam Extremities exam: Positive for: normal inspection. Negative for: calf tenderness, pedal edema - Neurological Exam Neurological exam: Alert, CN II-XII Intact, Oriented x3 - Psychiatric Exam Psychiatric exam: Normal Affect, Normal Mood - Skin Skin Exam: Dry, Intact, Normal Color, Warm Results - Vital Signs Recent Vital Signs: Last Vital Signs Temp 98.4 F 06/11/17 23:20 Pulse 122 H 06/12/17 00:15 Resp 20 06/11/17 23:20 BP 217/79 H 06/12/17 00:35 Pulse Ox 96 06/11/17 23:20 - Labs Result Diagrams: 06/08/17 13:00 06/11/17 20:30 Labs: Laboratory Results - last 24 hr 06/11/17 06/11/17 06/11/17 07:18 11:34 15:35 D-Dimer, Quantitative 371 H pCO2 pO2 HCO3 ABG pH ABG Total CO2 ABG O2 Saturation ABG O2 Content ABG Base Excess ABG Hemoglobin ABG Carboxyhemoglobin POC ABG HHb (Measured) ABG Methemoglobin ABG O2 Capacity Hgb O2 Saturation FiO2 Sodium Potassium Chloride Carbon Dioxide Anion Gap BUN Creatinine Est GFR ( Amer) Est GFR (Non-Af Amer) POC Glucose (mg/dL) 139 H 300 H Random Glucose Calcium 06/11/17 06/11/17 06/11/17 16:27 20:30 21:17 D-Dimer, Quantitative pCO2 pO2 HCO3 ABG pH ABG Total CO2 ABG O2 Saturation ABG O2 Content ABG Base Excess ABG Hemoglobin ABG Carboxyhemoglobin POC ABG HHb (Measured) ABG Methemoglobin ABG O2 Capacity Hgb O2 Saturation FiO2 Sodium 133 Potassium 4.2 Chloride 93 L Carbon Dioxide 31 Anion Gap 13 BUN 31 H Creatinine 1.1 Est GFR ( Amer) > 60 Est GFR (Non-Af Amer) > 60 POC Glucose (mg/dL) 96 58 L Random Glucose 61 L Calcium 9.0 06/11/17 06/11/17 06/12/17 21:48 23:47 00:11 D-Dimer, Quantitative pCO2 56 H pO2 114.0 H HCO3 27.6 ABG pH 7.30 L ABG Total CO2 29.3 H ABG O2 Saturation 99.0 H ABG O2 Content 16.0 ABG Base Excess 0.3 ABG Hemoglobin 11.7 ABG Carboxyhemoglobin 1.9 H POC ABG HHb (Measured) 1.0 ABG Methemoglobin 1.0 ABG O2 Capacity 16.2 Hgb O2 Saturation 96.2 FiO2 40.0 Sodium Potassium Chloride Carbon Dioxide Anion Gap BUN Creatinine Est GFR ( Amer) Est GFR (Non-Af Amer) POC Glucose (mg/dL) 97 179 H Random Glucose Calcium Assessment & Plan - Assessment and Plan (Free Text) Assessment: 82 year old [place] male PMHx severe pulmonary hypertension, hypertension, CAD , DM II, CHF s/p CABG and aortic valve replacement (bioprosthetic) transferred to ICU s/p CLINICAL WRITER for respiratory distress Plan: Neuro: AAO x3 Stable, no deficits Cardio: Right heart cath demonstrating severe pulm htn Continue lopressor, lipitor, lasix Primacor gtt Cardiology following, Dr. Sosa Hemodynamically stable Maintain MAP > 65 Pulm: CTA negative for PE but showed b/l pleural effusions and b/l lower lung consolidation worsening On BiPAP f/u ABG Severe pulm htn Continue Revatio, atrovent, and xopenex Lasix 40mg ivp qd Taper steroids Pulm following, Dr. Bustos following GI: Protonix for GI PPX Regular diet Miralax 17g, po qd GI Dr. Fraser on consult Renal: Maintain euvolemia Replenish electrolytes as needed Endocrine: Levemir 10U ISS Neurontin 100mg po qd Maintain euglycemia ID: Afebrile, no leukocytosis Maintain normothermia Psych: Wellbutrin 75mg po bid Ambien 5mg po hs DVT PPX: Lovenox 40mg sc qd Discussed with Dr. Kathy Horowitz PGY2 <Kathy KUMAR,Branden - Last Filed: 06/12/17 03:17> Meds - Medications Medications: Current Medications Atorvastatin Calcium (Lipitor) 40 mg PO DAILY [facility] Last Admin: 06/11/17 10:42 Dose: 40 mg Bupropion HCl (Wellbutrin) 75 mg PO BID [facility] Last Admin: 06/11/17 18:12 Dose: 75 mg Enoxaparin Sodium (Lovenox) 40 mg SC DAILY [facility] PRN Reason: Protocol Last Admin: 06/11/17 15:44 Dose: 40 mg Fluticasone Propionate (Flonase) 1 actuation NS DAILY [facility] Last Admin: 06/11/17 10:41 Dose: 2 spr Furosemide (Lasix) 40 mg IVP DAILY [facility] Gabapentin (Neurontin) 100 mg PO DAILY [facility] Last Admin: 06/11/17 10:40 Dose: 100 mg Home Med (Home Med) 1 unit PO DAILY [facility] Last Admin: 06/11/17 10:41 Dose: 1 unit Milrinone Lactate/Dextrose (Primacor 20mg/100ml D5w) 100 mls @ 8.057 mls/hr IV .[id number] PRN; Protocol; 0.375 MCG/KG/MIN PRN Reason: TITRATE PER MD ORDER Last Admin: 06/11/17 19:38 Dose: 0.375 mcg/kg/min, 8.057 mls/hr Insulin Detemir (Levemir) 10 unit SC DAILY [facility] Last Admin: 06/11/17 10:39 Dose: 10 unit Insulin Human Regular (Humulin R Low) 0 units SC [facility] PRN Reason: Protocol Last Admin: 06/11/17 21:47 Dose: Not Given Ipratropium [place] (Atrovent) 0.5 mg IH [id number] [facility] Last Admin: 06/12/17 01:08 Dose: 0.5 mg Ipratropium [place] (Atrovent) 0.5 mg IH [id number] PRN PRN Reason: Shortness of Breath Last Admin: 06/11/17 23:56 Dose: 0.5 mg Levalbuterol HCl (Xopenex) 1.25 mg IH [id number] [facility] Last Admin: 06/12/17 01:02 Dose: 1.25 mg Levalbuterol HCl (Xopenex) 0.63 mg IH [id number] PRN PRN Reason: Shortness of Breath Last Admin: 06/11/17 23:56 Dose: 0.63 mg Magnesium Oxide (Mag-Ox) 400 mg PO BID [facility] Last Admin: 06/11/17 18:12 Dose: 400 mg Metoprolol Tartrate (Lopressor) 12.5 mg PO Q12 [facility] Last Admin: 06/11/17 22:49 Dose: 12.5 mg Atomoxetine Hcl [ (Strattera] 60 Mg) 60 mg PO DAILY [facility] Last Admin: 06/10/17 10:43 Dose: Not Given Nystatin (Nystop Topical Powder) 0 gm TOP DAILY [facility] Last Admin: 06/11/17 13:06 Dose: Not Given Pantoprazole Sodium (Protonix Ec Tab) 40 mg PO DAILY [facility] Last Admin: 06/11/17 10:42 Dose: 40 mg Polyethylene Glycol (Miralax) 17 gm PO DAILY [facility] Last Admin: 06/11/17 10:40 Dose: 17 gm Sildenafil Citrate (Revatio) 20 mg PO Q8 [facility] Last Admin: 06/11/17 22:49 Dose: 20 mg Sodium Chloride ([place] Nasal [place]) 0 ml NS TID PRN PRN Reason: Nasal congestion Zolpidem Tartrate (Ambien) 5 mg PO HS PRN; Protocol PRN Reason: Insomnia Last Admin: 06/11/17 23:29 Dose: 5 mg Results - Vital Signs Recent Vital Signs: Last Vital Signs Temp 98.4 F 06/11/17 23:20 Pulse 88 06/12/17 02:00 Resp 20 06/11/17 23:20 BP 217/79 H 06/12/17 00:35 Pulse Ox 96 06/11/17 23:20 - Labs Result Diagrams: 06/08/17 13:00 06/11/17 20:30 Labs: Laboratory Results - last 24 hr 06/11/17 06/11/17 06/11/17 07:18 11:34 15:35 D-Dimer, Quantitative 371 H pCO2 pO2 HCO3 ABG pH ABG Total CO2 ABG O2 Saturation ABG O2 Content ABG Base Excess ABG Hemoglobin ABG Carboxyhemoglobin POC ABG HHb (Measured) ABG Methemoglobin ABG O2 Capacity Hgb O2 Saturation FiO2 Sodium Potassium Chloride Carbon Dioxide Anion Gap BUN Creatinine Est GFR ( Amer) Est GFR (Non-Af Amer) POC Glucose (mg/dL) 139 H 300 H Random Glucose Calcium 06/11/17 06/11/17 06/11/17 16:27 20:30 21:17 D-Dimer, Quantitative pCO2 pO2 HCO3 ABG pH ABG Total CO2 ABG O2 Saturation ABG O2 Content ABG Base Excess ABG Hemoglobin ABG Carboxyhemoglobin POC ABG HHb (Measured) ABG Methemoglobin ABG O2 Capacity Hgb O2 Saturation FiO2 Sodium 133 Potassium 4.2 Chloride 93 L Carbon Dioxide 31 Anion Gap 13 BUN 31 H Creatinine 1.1 Est GFR ( Amer) > 60 Est GFR (Non-Af Amer) > 60 POC Glucose (mg/dL) 96 58 L Random Glucose 61 L Calcium 9.0 06/11/17 06/11/17 06/12/17 21:48 23:47 00:11 D-Dimer, Quantitative pCO2 56 H pO2 114.0 H HCO3 27.6 ABG pH 7.30 L ABG Total CO2 29.3 H ABG O2 Saturation 99.0 H ABG O2 Content 16.0 ABG Base Excess 0.3 ABG Hemoglobin 11.7 ABG Carboxyhemoglobin 1.9 H POC ABG HHb (Measured) 1.0 ABG Methemoglobin 1.0 ABG O2 Capacity 16.2 Hgb O2 Saturation 96.2 FiO2 40.0 Sodium Potassium Chloride Carbon Dioxide Anion Gap BUN Creatinine Est GFR ( Amer) Est GFR (Non-Af Amer) POC Glucose (mg/dL) 97 179 H Random Glucose Calcium Attending/Attestation - Attestation I have personally seen and examined this patient.: Yes I have fully participated in the care of the patient.: Yes I have reviewed all pertinent clinical information: Yes Notes (Text): -I agree with the above ICU consult note completed by the resident physician, with the following additions and/or changes: -The patient is an 82 year old man with a history of severe pulmonary hypertension, NIDDM, HTN, CAD (s/p CABG), aortic valve replacement ( bioprosthetic) and mitral valve repair, who was initially admitted to [facility] for acute CHF exacerbation. Yesterday evening, he suddenly became hypoxic , tachypeneic, tachycardic and hypertensive (XUS=[id number]). Consequently, a Rapid Response was activated and he was given stat IV Lasix, IV Solumedrol, Labateolol IV and several doses of Duo-nebs. Bipap therapy was also started. A CT-PA done earlier was negative for PE but did show bilateral effusions and lower lung consolidation. As a result of his acute respiratory symptoms, he was upgraded to the ICU overnight with initial plans for intubation. However, approximately 30 minutes after receiving all the treatments during the Rapid Response, his symptoms markedly improved and he now appears much more comfortable. Given his suddenly elevated SBP alongside acute respiratory distress, flash pulmonary edema may be the underlying etiology (especially given improvement with IV Lasix).
[2017-06-12] MEDS ORDERED: Piperacillin/Tazobact 3.375 gm 100 ML IVPB STA (03:18)
[2017-06-12 05:15] LABS: ARTERIAL BLOOD GAS HCO3 31.2 mmol/L (21-28); ARTERIAL BLOOD GAS HEMOGLOBIN 10.2 g/dL (11.7-17.4); ARTERIAL BLOOD GAS O2 CAPACITY 14.1 mL/dl (16-24); ARTERIAL BLOOD GAS O2 SAT 99.5 % (95-98); ARTERIAL BLOOD GAS PCO2 46 mm/Hg (35-45); ARTERIAL BLOOD GAS PH 7.44 (7.35-7.45); ARTERIAL BLOOD GAS TCO2 32.6 mmol.L (22-28)
[2017-06-12 07:09] LABS: BASO # 0.01 K/mm3 (0.0-2.0); BASO % 0.2 % (0.0-3.0); EOS % 0.2 % (1.5-5.0); GRAN # 5.87 (1.4-6.5); HEMOGLOBIN 10.4 g/dL (14.0-18.0); LYMPH # 0.4 (1.2-3.4); LYMPH % 5.6 % (22.0-35.0); MEAN CELL VOLUME 92.9 fl (80.0-105.0); MEAN CORPUSCULAR HEMOGLOBIN 30.9 pg (25.0-35.0); MEAN CORPUSCULAR HGB CONC 33.2 g/dl (31.0-37.0); MEAN PLATELET VOLUME 10.7 fl (7.0-11.0); MONO # 0.1 (0.1-0.6); PLATELET COUNT 183 10^3/uL (120.0-450.0); RBC 3.37 10^6/uL (3.5-6.1); RED CELL DISTRIBUTION WIDTH 13.7 % (11.5-14.5); WHITE BLOOD COUNT 6.4 10^3/ul (4.5-11.0)
[2017-06-12 07:22] LABS: ALB/GLOB RATIO 1.1 (1.1-1.8); ALBUMIN 3.4 g/dL (3.0-4.8); ALT/SGPT 58 U/L (7-56); AST/SGOT 43 U/L (17-59); BLOOD UREA NITROGEN 35 mg/dL (7-21); CALCIUM 9.2 mg/dL (8.4-10.5); GFR AFRICAN-AMERICAN > 60; GFR NON-AFRICAN AMERICAN 53
[2017-06-12] MEDS: Insulin Reg-LOW-Coverage SC SCH ×4 (07:30→22:12)
[2017-06-12] MEDS: Milrinone 20mg/100ml D5W 100 ML IV PRN ×2 (08:03→22:04)
[2017-06-12 08:13] LABS: LYMPHOCYTE 3 % (22.0-35.0); MONOCYTE 2 % (1.0-6.0); NEUTROPHIL 95 % (50.0-70.0)
[2017-06-12 08:14] LABS: LARGE PLATELETS PRESENT; PLATELET ESTIMATE NORMAL (NORMAL)
--- NOTE | 2017-06-12 08:23 | RAD ---
HISTORY: dyspnea COMPARISON: Portable chest 06/02/2017. FINDINGS: LUNGS: No alveolar infiltrate is appreciated bilaterally. Reticular markings are somewhat prominent bilaterally which may be from an infectious or inflammatory process as pulmonary venous congestion is not clearly identified. PLEURA: No pneumothorax bilaterally. No right pleural effusion. Diminishing left pleural effusion noted. CARDIOVASCULAR: Cardiac silhouette is stable with sternotomy wires and prosthetic cardiac valve again evident. OSSEOUS STRUCTURES: No significant abnormalities. VISUALIZED UPPER ABDOMEN: Normal. OTHER FINDINGS: None. IMPRESSION: Diminishing left pleural effusion. Mild prominence of reticular markings bilaterally may indicate indicates limited inflammatory or infectious process. No definite pulmonary venous congestion. CHF is not favored but is not completely excluded. No definite alveolar infiltrate.
[2017-06-12] MEDS: Insulin Detemir 100 units/ml Vial (Levemir) SC SCH (09:29)
[2017-06-12] MEDS: Magnesium Oxide 400 mg Tab UD PO SCH ×2 (09:30→18:13)
[2017-06-12] MEDS: Enoxaparin 40 mg Syringe SC SCH (09:30)
[2017-06-12] MEDS: Pantoprazole 40 mg EC Tab PO SCH (09:33)
[2017-06-12] MEDS: POLYETHYLENE GLYCOL 3350 17 GM/Dose PACKET PO SCH (09:39)
--- NOTE | 2017-06-12 11:42 | CP.CCUPN ---
<AzeemmichaelHayes frederick - Last Filed: 06/12/17 12:35> CCU Subjective - Physician Review Subjective (Free Text): Critical Care Progress Note for Dr. Gomez Patient seen and examined at bedside. 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 Patient was transferred to ICU. This morning, patient states breathing has slightly improved. He denies any pain. CCU Objective - Vital Signs / Intake & Output Vital Signs (Last 4 hours): Vital Signs Pulse Resp BP Pulse Ox 06/12/17 10:00 96 H 28 H 118/48 L 96 06/12/17 09:50 99 H 36 H 97 06/12/17 09:40 95 H 36 H 98 06/12/17 09:37 94 H 112/42 L 06/12/17 09:34 94 H 06/12/17 09:30 88 19 91 L 06/12/17 09:29 112/42 L 06/12/17 09:20 91 H 20 93 L 06/12/17 09:10 91 H 20 95 06/12/17 09:00 95 H 25 H 112/42 L 96 06/12/17 08:50 92 H 23 90 L 06/12/17 08:40 90 22 90 L 06/12/17 08:30 91 H 21 91 L 06/12/17 08:20 94 H 34 H 89 L 06/12/17 08:10 89 19 93 L 06/12/17 08:03 90 119/48 L 06/12/17 08:00 90 20 119/48 L 93 L 06/12/17 07:50 89 21 94 L 06/12/17 07:40 91 H 26 H 100 Intake and Output (Last 8hrs): Intake & Output 06/11/17 06/12/17 06/12/17 22:59 06:59 14:59 Intake Total 880 64 100 Output Total 1050 900 Balance -170 -836 100 Weight 160 lb Intake: IV 100 64 100 Left Antecubital 64 Oral 780 0 Output: Urine 1050 900 Urethral (Johnson) 900 Urine, Voided 1050 Other: # Bowel Movements 0 0 - Physical Exam Head: Positive for: Atraumatic, Normocephalic Pupils: Positive for: PERRL Extroacular Muscles: Positive for: EOMI Conjunctiva: Positive for: Normal Mouth: Positive for: Moist Mucous Membranes Neck: Positive for: Normal Range of Motion Respiratory/Chest: Positive for: Decreased Breath Sounds. Negative for: Respiratory Distress, Accessory Muscle Use, Wheezes, Rales, Retracting, Rhonchi Cardiovascular: Positive for: Regular Rate and Rhythm. Negative for: Murmurs Abdomen: Positive for: Normal Bowel Sounds. Negative for: Tenderness, Distention, Peritoneal Signs, Rebound Back: Positive for: Normal Inspection Upper Extremity: Positive for: Neurovascularly Intact. Negative for: Cyanosis, Edema Lower Extremity: Positive for: Neurovascularly Intact. Negative for: Edema, CALF TENDERNESS, Preeti's Sign Neurological: Positive for: GCS=15, CN II-XII Intact, Speech Normal Skin: Positive for: Warm, Dry, Normal Color. Negative for: Rashes Psychiatric: Positive for: Alert, Oriented x 3, Normal Insight, Normal Concentration - Medications Active Medications: Active Medications Generic Name Dose Route Start Last Admin Trade Name Freq PRN Reason Stop Dose Admin Atorvastatin Calcium 40 mg 06/01/17 10:00 06/12/17 09:29 Lipitor PO 40 mg DAILY BAKARI Administration Bupropion HCl 75 mg 06/03/17 14:31 06/12/17 09:33 Wellbutrin PO 75 mg BID BAKARI Administration Enoxaparin Sodium 40 mg 06/11/17 15:45 06/12/17 09:30 Lovenox SC 40 mg DAILY BAKARI Administration Protocol Fluticasone Propionate 1 actuation 06/08/17 16:45 06/11/17 10:41 Flonase NS 2 spr DAILY BAKARI Administration Furosemide 40 mg 06/12/17 10:00 06/12/17 09:29 Lasix IVP 40 mg DAILY BAKARI Administration Gabapentin 100 mg 06/08/17 10:00 06/12/17 09:33 Neurontin PO 100 mg DAILY BAKARI Administration Home Med 1 unit 06/11/17 10:00 06/11/17 10:41 Home Med PO 1 unit DAILY BAKARI Administration Milrinone Lactate/Dextrose 100 mls @ 8.057 mls/hr 06/06/17 16:47 06/12/17 08: 03 Primacor 20mg/100ml D5w IV 0.375 mcg/kg/min .[id number] PRN 8.057 mls/hr TITRATE PER MD ORDER Administration Protocol 0.375 MCG/KG/MIN Insulin Detemir 10 unit 06/08/17 10:00 06/12/17 09:29 Levemir SC Not Given DAILY BAKARI Insulin Human Regular 0 units 06/07/17 22:00 06/11/17 21:47 Humulin R Low SC Not Given ACHS [facility] Protocol Ipratropium [place] 0.5 mg 06/01/17 14:00 06/12/17 07:21 Atrovent IH 0.5 mg [id number] BAKARI Administration Levalbuterol HCl 1.25 mg 06/01/17 12:40 06/12/17 07:21 Xopenex IH 1.25 mg [id number] BAKARI Administration Levalbuterol HCl 0.63 mg 06/01/17 12:42 06/11/17 23:56 Xopenex IH 0.63 mg [id number] PRN Administration Shortness of Breath Magnesium Oxide 400 mg 06/01/17 10:00 06/12/17 09:30 Mag-Ox PO 400 mg BID BAKARI Administration Methylprednisolone 40 mg 06/12/17 10:30 Solu-Medrol IVP Q8H BAKARI Metoprolol Tartrate 12.5 mg 06/01/17 22:00 06/12/17 09:37 Lopressor PO 12.5 mg Q12 BAKARI Administration Atomoxetine Hcl [ 60 mg 06/01/17 10:00 06/10/17 10:43 Strattera] 60 Mg PO Not Given DAILY [facility] Nystatin 0 gm 06/09/17 11:30 06/11/17 13:06 Nystop Topical Powder TOP Not Given DAILY BAKARI Pantoprazole Sodium 40 mg 06/04/17 10:00 06/12/17 09:33 Protonix Ec Tab PO 40 mg DAILY BAKARI Administration Polyethylene Glycol 17 gm 06/06/17 10:00 06/12/17 09:39 Miralax PO 17 gm DAILY BAKARI Administration Sildenafil Citrate 20 mg 06/01/17 14:00 06/11/17 22:49 Revatio PO 20 mg Q8 BAKARI Administration Sodium Chloride 0 ml 06/08/17 16:37 [place] Nasal [place] NS TID PRN Nasal congestion Zolpidem Tartrate 5 mg 06/05/17 00:24 06/11/17 23:29 Ambien PO 5 mg HS PRN Administration Insomnia Protocol - Patient Studies Lab Studies: Lab Studies 06/12/17 06/12/17 06/12/17 Range/Units 06:40 06:40 05:00 WBC 6.4 (4.5-11.0) 10^3/ul RBC 3.37 L (3.5-6.1) 10^6/uL Hgb 10.4 L (14.0-18.0) g/dL Hct 31.3 L (42.0-52.0) % MCV 92.9 (80.0-105.0) fl MCH 30.9 (25.0-35.0) pg MCHC 33.2 (31.0-37.0) g/dl RDW 13.7 (11.5-14.5) % Plt Count 183 (120.0-450.0) 10^3/uL MPV 10.7 (7.0-11.0) fl Gran % 92.0 H (50.0-68.0) % Lymph % (Auto) 5.6 L (22.0-35.0) % [place] % (Auto) 2.0 (1.0-6.0) % Eos % (Auto) 0.2 L (1.5-5.0) % Baso % (Auto) 0.2 (0.0-3.0) % Gran # 5.87 (1.4-6.5) Lymph # 0.4 L (1.2-3.4) [place] # 0.1 (0.1-0.6) Eos # 0.0 (0.0-0.7) Baso # 0.01 (0.0-2.0) K/mm3 Neutrophils % (Manual) 95 H (50.0-70.0) % Lymphocytes % (Manual) 3 L (22.0-35.0) % Monocytes % (Manual) 2 (1.0-6.0) % Platelet Evaluation Normal (NORMAL) Large Platelets Present D-Dimer, Quantitative (0-243) ng/mL pCO2 46 H (35-45) mm/Hg pO2 116.0 H (80-100) mm/Hg HCO3 31.2 H (21-28) mmol/L ABG pH 7.44 (7.35-7.45) ABG Total CO2 32.6 H (22-28) mmol.L ABG O2 Saturation 99.5 H (95-98) % ABG O2 Content 14.0 L (15-23) ML/dl ABG Base Excess 6.3 H (-2.0-3.0) mmol/L ABG Hemoglobin 10.2 L (11.7-17.4) g/dL ABG Carboxyhemoglobin 2.3 H (0.5-1.5) % POC ABG HHb (Measured) 0.5 (0-5) % ABG Methemoglobin 0.9 (0.0-3.0) % ABG O2 Capacity 14.1 L (16-24) mL/dl Hgb O2 Saturation 96.2 (95.0-98.0) % FiO2 40.0 % Sodium 129 L (132-148) mmol/L Potassium 4.8 (3.6-5.0) mmol/L Chloride 93 L (98-107) mmol/L Carbon Dioxide 29 (21-33) mmol/L Anion Gap 12 (10-20) BUN 35 H (7-21) mg/dL Creatinine 1.3 (0.8-1.5) mg/dl Est GFR ( Amer) > 60 Est GFR (Non-Af Amer) 53 POC Glucose (mg/dL) (65-110) mg/dL Random Glucose 217 H (70-110) mg/dL Calcium 9.2 (8.4-10.5) mg/dL Phosphorus 4.8 H (2.5-4.5) mg/dL Magnesium 2.0 (1.7-2.2) mg/dL Total Bilirubin 1.1 (0.2-1.3) mg/dL AST 43 (17-59) U/L ALT 58 H (7-56) U/L Alkaline Phosphatase 159 H D (38-126) U/L Total Protein 6.4 (5.8-8.3) g/dL Albumin 3.4 (3.0-4.8) g/dL Globulin 3.0 gm/dL Albumin/Globulin Ratio 1.1 (1.1-1.8) 06/12/17 06/11/17 06/11/17 Range/Units 00:11 23:47 21:48 WBC (4.5-11.0) 10^3/ul RBC (3.5-6.1) 10^6/uL Hgb (14.0-18.0) g/dL Hct (42.0-52.0) % MCV (80.0-105.0) fl MCH (25.0-35.0) pg MCHC (31.0-37.0) g/dl RDW (11.5-14.5) % Plt Count (120.0-450.0) 10^3/uL MPV (7.0-11.0) fl Gran % (50.0-68.0) % Lymph % (Auto) (22.0-35.0) % [place] % (Auto) (1.0-6.0) % Eos % (Auto) (1.5-5.0) % Baso % (Auto) (0.0-3.0) % Gran # (1.4-6.5) Lymph # (1.2-3.4) [place]ier # (0.1-0.6) Eos # (0.0-0.7) Baso # (0.0-2.0) K/mm3 Neutrophils % (Manual) (50.0-70.0) % Lymphocytes % (Manual) (22.0-35.0) % Monocytes % (Manual) (1.0-6.0) % Platelet Evaluation (NORMAL) Large Platelets D-Dimer, Quantitative (0-243) ng/mL pCO2 56 H (35-45) mm/Hg pO2 114.0 H (80-100) mm/Hg HCO3 27.6 (21-28) mmol/L ABG pH 7.30 L (7.35-7.45) ABG Total CO2 29.3 H (22-28) mmol.L ABG O2 Saturation 99.0 H (95-98) % ABG O2 Content 16.0 (15-23) ML/dl ABG Base Excess 0.3 (-2.0-3.0) mmol/L ABG Hemoglobin 11.7 (11.7-17.4) g/dL ABG Carboxyhemoglobin 1.9 H (0.5-1.5) % POC ABG HHb (Measured) 1.0 (0-5) % ABG Methemoglobin 1.0 (0.0-3.0) % ABG O2 Capacity 16.2 (16-24) mL/dl Hgb O2 Saturation 96.2 (95.0-98.0) % FiO2 40.0 % Sodium (132-148) mmol/L Potassium (3.6-5.0) mmol/L Chloride (98-107) mmol/L Carbon Dioxide (21-33) mmol/L Anion Gap (10-20) BUN (7-21) mg/dL Creatinine (0.8-1.5) mg/dl Est GFR ( Amer) Est GFR (Non-Af Amer) POC Glucose (mg/dL) 179 H 97 (65-110) mg/dL Random Glucose (70-110) mg/dL Calcium (8.4-10.5) mg/dL Phosphorus (2.5-4.5) mg/dL Magnesium (1.7-2.2) mg/dL Total Bilirubin (0.2-1.3) mg/dL AST (17-59) U/L ALT (7-56) U/L Alkaline Phosphatase (38-126) U/L Total Protein (5.8-8.3) g/dL Albumin (3.0-4.8) g/dL Globulin gm/dL Albumin/Globulin Ratio (1.1-1.8) 06/11/17 06/11/17 06/11/17 Range/Units 21:17 20:30 16:27 WBC (4.5-11.0) 10^3/ul RBC (3.5-6.1) 10^6/uL Hgb (14.0-18.0) g/dL Hct (42.0-52.0) % MCV (80.0-105.0) fl MCH (25.0-35.0) pg MCHC (31.0-37.0) g/dl RDW (11.5-14.5) % Plt Count (120.0-450.0) 10^3/uL MPV (7.0-11.0) fl Gran % (50.0-68.0) % Lymph % (Auto) (22.0-35.0) % [place] % (Auto) (1.0-6.0) % Eos % (Auto) (1.5-5.0) % Baso % (Auto) (0.0-3.0) % Gran # (1.4-6.5) Lymph # (1.2-3.4) Cavalier # (0.1-0.6) Eos # (0.0-0.7) Baso # (0.0-2.0) K/mm3 Neutrophils % (Manual) (50.0-70.0) % Lymphocytes % (Manual) (22.0-35.0) % Monocytes % (Manual) (1.0-6.0) % Platelet Evaluation (NORMAL) Large Platelets D-Dimer, Quantitative (0-243) ng/mL pCO2 (35-45) mm/Hg pO2 (80-100) mm/Hg HCO3 (21-28) mmol/L ABG pH (7.35-7.45) ABG Total CO2 (22-28) mmol.L ABG O2 Saturation (95-98) % ABG O2 Content (15-23) ML/dl ABG Base Excess (-2.0-3.0) mmol/L ABG Hemoglobin (11.7-17.4) g/dL ABG Carboxyhemoglobin (0.5-1.5) % POC ABG HHb (Measured) (0-5) % ABG Methemoglobin (0.0-3.0) % ABG O2 Capacity (16-24) mL/dl Hgb O2 Saturation (95.0-98.0) % FiO2 % Sodium 133 (132-148) mmol/L Potassium 4.2 (3.6-5.0) mmol/L Chloride 93 L (98-107) mmol/L Carbon Dioxide 31 (21-33) mmol/L Anion Gap 13 (10-20) BUN 31 H (7-21) mg/dL Creatinine 1.1 (0.8-1.5) mg/dl Est GFR ( Amer) > 60 Est GFR (Non-Af Amer) > 60 POC Glucose (mg/dL) 58 L 96 (65-110) mg/dL Random Glucose 61 L (70-110) mg/dL Calcium 9.0 (8.4-10.5) mg/dL Phosphorus (2.5-4.5) mg/dL Magnesium (1.7-2.2) mg/dL Total Bilirubin (0.2-1.3) mg/dL AST (17-59) U/L ALT (7-56) U/L Alkaline Phosphatase (38-126) U/L Total Protein (5.8-8.3) g/dL Albumin (3.0-4.8) g/dL Globulin gm/dL Albumin/Globulin Ratio (1.1-1.8) 06/11/17 06/11/17 Range/Units 15:35 11:34 WBC (4.5-11.0) 10^3/ul RBC (3.5-6.1) 10^6/uL Hgb (14.0-18.0) g/dL Hct (42.0-52.0) % MCV (80.0-105.0) fl MCH (25.0-35.0) pg MCHC (31.0-37.0) g/dl RDW (11.5-14.5) % Plt Count (120.0-450.0) 10^3/uL MPV (7.0-11.0) fl Gran % (50.0-68.0) % Lymph % (Auto) (22.0-35.0) % [place] % (Auto) (1.0-6.0) % Eos % (Auto) (1.5-5.0) % Baso % (Auto) (0.0-3.0) % Gran # (1.4-6.5) Lymph # (1.2-3.4) [place] # (0.1-0.6) Eos # (0.0-0.7) Baso # (0.0-2.0) K/mm3 Neutrophils % (Manual) (50.0-70.0) % Lymphocytes % (Manual) (22.0-35.0) % Monocytes % (Manual) (1.0-6.0) % Platelet Evaluation (NORMAL) Large Platelets D-Dimer, Quantitative 371 H (0-243) ng/mL pCO2 (35-45) mm/Hg pO2 (80-100) mm/Hg HCO3 (21-28) mmol/L ABG pH (7.35-7.45) ABG Total CO2 (22-28) mmol.L ABG O2 Saturation (95-98) % ABG O2 Content (15-23) ML/dl ABG Base Excess (-2.0-3.0) mmol/L ABG Hemoglobin (11.7-17.4) g/dL ABG Carboxyhemoglobin (0.5-1.5) % POC ABG HHb (Measured) (0-5) % ABG Methemoglobin (0.0-3.0) % ABG O2 Capacity (16-24) mL/dl Hgb O2 Saturation (95.0-98.0) % FiO2 % Sodium (132-148) mmol/L Potassium (3.6-5.0) mmol/L Chloride (98-107) mmol/L Carbon Dioxide (21-33) mmol/L Anion Gap (10-20) BUN (7-21) mg/dL Creatinine (0.8-1.5) mg/dl Est GFR ( Amer) Est GFR (Non-Af Amer) POC Glucose (mg/dL) 300 H (65-110) mg/dL Random Glucose (70-110) mg/dL Calcium (8.4-10.5) mg/dL Phosphorus (2.5-4.5) mg/dL Magnesium (1.7-2.2) mg/dL Total Bilirubin (0.2-1.3) mg/dL AST (17-59) U/L ALT (7-56) U/L Alkaline Phosphatase (38-126) U/L Total Protein (5.8-8.3) g/dL Albumin (3.0-4.8) g/dL Globulin gm/dL Albumin/Globulin Ratio (1.1-1.8) Laboratory Results - last 24 hr 06/11/17 06/11/17 06/11/17 11:34 15:35 16:27 WBC RBC Hgb Hct MCV MCH MCHC RDW Plt Count MPV Gran % Lymph % (Auto) [place] % (Auto) Eos % (Auto) Baso % (Auto) Gran # Lymph # [place] # Eos # Baso # Neutrophils % (Manual) Lymphocytes % (Manual) Monocytes % (Manual) Platelet Evaluation Large Platelets D-Dimer, Quantitative 371 H pCO2 pO2 HCO3 ABG pH ABG Total CO2 ABG O2 Saturation ABG O2 Content ABG Base Excess ABG Hemoglobin ABG Carboxyhemoglobin POC ABG HHb (Measured) ABG Methemoglobin ABG O2 Capacity Hgb O2 Saturation FiO2 Sodium Potassium Chloride Carbon Dioxide Anion Gap BUN Creatinine Est GFR ( Amer) Est GFR (Non-Af Amer) POC Glucose (mg/dL) 300 H 96 Random Glucose Calcium Phosphorus Magnesium Total Bilirubin AST ALT Alkaline Phosphatase Total Protein Albumin Globulin Albumin/Globulin Ratio 06/11/17 06/11/17 06/11/17 20:30 21:17 21:48 WBC RBC Hgb Hct MCV MCH MCHC RDW Plt Count MPV Gran % Lymph % (Auto) [place] % (Auto) Eos % (Auto) Baso % (Auto) Gran # Lymph # [place] # Eos # Baso # Neutrophils % (Manual) Lymphocytes % (Manual) Monocytes % (Manual) Platelet Evaluation Large Platelets D-Dimer, Quantitative pCO2 pO2 HCO3 ABG pH ABG Total CO2 ABG O2 Saturation ABG O2 Content ABG Base Excess ABG Hemoglobin ABG Carboxyhemoglobin POC ABG HHb (Measured) ABG Methemoglobin ABG O2 Capacity Hgb O2 Saturation FiO2 Sodium 133 Potassium 4.2 Chloride 93 L Carbon Dioxide 31 Anion Gap 13 BUN 31 H Creatinine 1.1 Est GFR ( Amer) > 60 Est GFR (Non-Af Amer) > 60 POC Glucose (mg/dL) 58 L 97 Random Glucose 61 L Calcium 9.0 Phosphorus Magnesium Total Bilirubin AST ALT Alkaline Phosphatase Total Protein Albumin Globulin Albumin/Globulin Ratio 06/11/17 06/12/17 06/12/17 23:47 00:11 05:00 WBC RBC Hgb Hct MCV MCH MCHC RDW Plt Count MPV Gran % Lymph % (Auto) [place] % (Auto) Eos % (Auto) Baso % (Auto) Gran # Lymph # [place] # Eos # Baso # Neutrophils % (Manual) Lymphocytes % (Manual) Monocytes % (Manual) Platelet Evaluation Large Platelets D-Dimer, Quantitative pCO2 56 H 46 H pO2 114.0 H 116.0 H HCO3 27.6 31.2 H ABG pH 7.30 L 7.44 ABG Total CO2 29.3 H 32.6 H ABG O2 Saturation 99.0 H 99.5 H ABG O2 Content 16.0 14.0 L ABG Base Excess 0.3 6.3 H ABG Hemoglobin 11.7 10.2 L ABG Carboxyhemoglobin 1.9 H 2.3 H POC ABG HHb (Measured) 1.0 0.5 ABG Methemoglobin 1.0 0.9 ABG O2 Capacity 16.2 14.1 L Hgb O2 Saturation 96.2 96.2 FiO2 40.0 40.0 Sodium Potassium Chloride Carbon Dioxide Anion Gap BUN Creatinine Est GFR ( Amer) Est GFR (Non-Af Amer) POC Glucose (mg/dL) 179 H Random Glucose Calcium Phosphorus Magnesium Total Bilirubin AST ALT Alkaline Phosphatase Total Protein Albumin Globulin Albumin/Globulin Ratio 06/12/17 06/12/17 06:40 06:40 WBC 6.4 RBC 3.37 L Hgb 10.4 L Hct 31.3 L MCV 92.9 MCH 30.9 MCHC 33.2 RDW 13.7 Plt Count 183 MPV 10.7 Gran % 92.0 H Lymph % (Auto) 5.6 L [place] % (Auto) 2.0 Eos % (Auto) 0.2 L Baso % (Auto) 0.2 Gran # 5.87 Lymph # 0.4 L [place] # 0.1 Eos # 0.0 Baso # 0.01 Neutrophils % (Manual) 95 H Lymphocytes % (Manual) 3 L Monocytes % (Manual) 2 Platelet Evaluation Normal Large Platelets Present D-Dimer, Quantitative pCO2 pO2 HCO3 ABG pH ABG Total CO2 ABG O2 Saturation ABG O2 Content ABG Base Excess ABG Hemoglobin ABG Carboxyhemoglobin POC ABG HHb (Measured) ABG Methemoglobin ABG O2 Capacity Hgb O2 Saturation FiO2 Sodium 129 L Potassium 4.8 Chloride 93 L Carbon Dioxide 29 Anion Gap 12 BUN 35 H Creatinine 1.3 Est GFR ( Amer) > 60 Est GFR (Non-Af Amer) 53 POC Glucose (mg/dL) Random Glucose 217 H Calcium 9.2 Phosphorus 4.8 H Magnesium 2.0 Total Bilirubin 1.1 AST 43 ALT 58 H Alkaline Phosphatase 159 H D Total Protein 6.4 Albumin 3.4 Globulin 3.0 Albumin/Globulin Ratio 1.1 Fingerstick Blood Sugar Results: 119 Critical Care Progress Note - Nutrition Nutrition: Nutrition Category Date Time Status Consistent Carbohydrate [DIET] Diets 06/03/17 Dinner Ordered Assessment/Plan - Assessment and Plan (Free Text) Plan: 82 year old Armenian male PMHx severe pulmonary hypertension, hypertension, CAD , DM II, CHF s/p CABG and aortic valve replacement (bioprosthetic) 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 Sosa Hemodynamically stable Maintain MAP > 65 Pulm: CTA negative for PE but showed b/l pleural effusions and b/l lower lung consolidation worsening On BiPAP Daily CXR Severe pulm htn Continue Revatio, atrovent, and xopenex Lasix Solu-medrol 40 mg Q8H Pulm following, Dr. Bustos following GI: Protonix for GI PPX Regular diet Miralax 17g po qd GI Dr. Fraser on consult Renal: Maintain euvolemia Replenish electrolytes as needed Endocrine: Levemir 10U ISS Neurontin 100mg po qd Maintain euglycemia ID: Afebrile, no leukocytosis Maintain normothermia Psych: Wellbutrin 75mg po bid Ambien 5mg po hs DVT PPX: Lovenox 40mg sc qd Discussed with Dr. Patricai Sidhu PGY1 <Edvin Gomez - Last Filed: 06/12/17 12:56> CCU Objective - Vital Signs / Intake & Output Vital Signs (Last 4 hours): Vital Signs Pulse Resp BP Pulse Ox 06/12/17 10:00 96 H 28 H 118/48 L 96 06/12/17 09:50 99 H 36 H 97 06/12/17 09:40 95 H 36 H 98 06/12/17 09:37 94 H 112/42 L 06/12/17 09:34 94 H 06/12/17 09:30 88 19 91 L 06/12/17 09:29 112/42 L 06/12/17 09:20 91 H 20 93 L 06/12/17 09:10 91 H 20 95 06/12/17 09:00 95 H 25 H 112/42 L 96 Intake and Output (Last 8hrs): Intake & Output 06/11/17 06/12/17 06/12/17 22:59 06:59 14:59 Intake Total 880 64 100 Output Total 1050 900 Balance -170 -836 100 Weight 160 lb Intake: IV 100 64 100 Left Antecubital 64 Oral 780 0 Output: Urine 1050 900 Urethral (Johnson) 900 Urine, Voided 1050 Other: # Bowel Movements 0 0 - Medications Active Medications: Active Medications Generic Name Dose Route Start Last Admin Trade Name Freq PRN Reason Stop Dose Admin Atorvastatin Calcium 40 mg 06/01/17 10:00 06/12/17 09:29 Lipitor PO 40 mg DAILY BAKARI Administration Bupropion HCl 75 mg 06/03/17 14:31 06/12/17 09:33 Wellbutrin PO 75 mg BID BAKARI Administration Enoxaparin Sodium 40 mg 06/11/17 15:45 06/12/17 09:30 Lovenox SC 40 mg DAILY BAKARI Administration Protocol Fluticasone Propionate 1 actuation 06/08/17 16:45 06/11/17 10:41 Flonase NS 2 spr DAILY BAKARI Administration Furosemide 40 mg 06/12/17 10:00 06/12/17 09:29 Lasix IVP 40 mg DAILY BAKARI Administration Gabapentin 100 mg 06/08/17 10:00 06/12/17 09:33 Neurontin PO 100 mg DAILY BAKARI Administration Home Med 1 unit 06/11/17 10:00 06/11/17 10:41 Home Med PO 1 unit DAILY BAKARI Administration Milrinone Lactate/Dextrose 100 mls @ 8.057 mls/hr 06/06/17 16:47 06/12/17 08: 03 Primacor 20mg/100ml D5w IV 0.375 mcg/kg/min .[id number] PRN 8.057 mls/hr TITRATE PER MD ORDER Administration Protocol 0.375 MCG/KG/MIN Insulin Detemir 10 unit 06/08/17 10:00 06/12/17 09:29 Levemir SC Not Given DAILY [facility] Insulin Human Regular 0 units 06/07/17 22:00 06/11/17 21:47 Humulin R Low SC Not Given ACHS [facility] Protocol Ipratropium [place] 0.5 mg 06/01/17 14:00 06/12/17 07:21 Atrovent IH 0.5 mg [id number] BAKARI Administration Levalbuterol HCl 1.25 mg 06/01/17 12:40 06/12/17 07:21 Xopenex IH 1.25 mg [id number] BAKARI Administration Levalbuterol HCl 0.63 mg 06/01/17 12:42 06/11/17 23:56 Xopenex IH 0.63 mg [id number] PRN Administration Shortness of Breath Magnesium Oxide 400 mg 06/01/17 10:00 06/12/17 09:30 Mag-Ox PO 400 mg BID BAKARI Administration Methylprednisolone 40 mg 06/12/17 10:30 Solu-Medrol IVP Q8H BAKARI Metoprolol Tartrate 12.5 mg 06/01/17 22:00 06/12/17 09:37 Lopressor PO 12.5 mg Q12 BAKARI Administration Atomoxetine Hcl [ 60 mg 06/01/17 10:00 06/10/17 10:43 Strattera] 60 Mg PO Not Given DAILY BAKARI Nystatin 0 gm 06/09/17 11:30 06/11/17 13:06 Nystop Topical Powder TOP Not Given DAILY BAKARI Pantoprazole Sodium 40 mg 06/04/17 10:00 06/12/17 09:33 Protonix Ec Tab PO 40 mg DAILY BAKARI Administration Polyethylene Glycol 17 gm 06/06/17 10:00 06/12/17 09:39 Miralax PO 17 gm DAILY BAKARI Administration Sildenafil Citrate 20 mg 06/01/17 14:00 06/11/17 22:49 Revatio PO 20 mg Q8 BAKARI Administration Sodium Chloride 0 ml 06/08/17 16:37 [place] Nasal [place] NS TID PRN Nasal congestion Zolpidem Tartrate 5 mg 06/05/17 00:24 06/11/17 23:29 Ambien PO 5 mg HS PRN Administration Insomnia Protocol - Patient Studies Lab Studies: Lab Studies 06/12/17 06/12/17 06/12/17 Range/Units 06:40 06:40 05:00 WBC 6.4 (4.5-11.0) 10^3/ul RBC 3.37 L (3.5-6.1) 10^6/uL Hgb 10.4 L (14.0-18.0) g/dL Hct 31.3 L (42.0-52.0) % MCV 92.9 (80.0-105.0) fl MCH 30.9 (25.0-35.0) pg MCHC 33.2 (31.0-37.0) g/dl RDW 13.7 (11.5-14.5) % Plt Count 183 (120.0-450.0) 10^3/uL MPV 10.7 (7.0-11.0) fl Gran % 92.0 H (50.0-68.0) % Lymph % (Auto) 5.6 L (22.0-35.0) % [place] % (Auto) 2.0 (1.0-6.0) % Eos % (Auto) 0.2 L (1.5-5.0) % Baso % (Auto) 0.2 (0.0-3.0) % Gran # 5.87 (1.4-6.5) Lymph # 0.4 L (1.2-3.4) [place] # 0.1 (0.1-0.6) Eos # 0.0 (0.0-0.7) Baso # 0.01 (0.0-2.0) K/mm3 Neutrophils % (Manual) 95 H (50.0-70.0) % Lymphocytes % (Manual) 3 L (22.0-35.0) % Monocytes % (Manual) 2 (1.0-6.0) % Platelet Evaluation Normal (NORMAL) Large Platelets Present D-Dimer, Quantitative (0-243) ng/mL pCO2 46 H (35-45) mm/Hg pO2 116.0 H (80-100) mm/Hg HCO3 31.2 H (21-28) mmol/L ABG pH 7.44 (7.35-7.45) ABG Total CO2 32.6 H (22-28) mmol.L ABG O2 Saturation 99.5 H (95-98) % ABG O2 Content 14.0 L (15-23) ML/dl ABG Base Excess 6.3 H (-2.0-3.0) mmol/L ABG Hemoglobin 10.2 L (11.7-17.4) g/dL ABG Carboxyhemoglobin 2.3 H (0.5-1.5) % POC ABG HHb (Measured) 0.5 (0-5) % ABG Methemoglobin 0.9 (0.0-3.0) % ABG O2 Capacity 14.1 L (16-24) mL/dl Hgb O2 Saturation 96.2 (95.0-98.0) % FiO2 40.0 % Sodium 129 L (132-148) mmol/L Potassium 4.8 (3.6-5.0) mmol/L Chloride 93 L (98-107) mmol/L Carbon Dioxide 29 (21-33) mmol/L Anion Gap 12 (10-20) BUN 35 H (7-21) mg/dL Creatinine 1.3 (0.8-1.5) mg/dl Est GFR ( Amer) > 60 Est GFR (Non-Af Amer) 53 POC Glucose (mg/dL) (65-110) mg/dL Random Glucose 217 H (70-110) mg/dL Calcium 9.2 (8.4-10.5) mg/dL Phosphorus 4.8 H (2.5-4.5) mg/dL Magnesium 2.0 (1.7-2.2) mg/dL Total Bilirubin 1.1 (0.2-1.3) mg/dL AST 43 (17-59) U/L ALT 58 H (7-56) U/L Alkaline Phosphatase 159 H D (38-126) U/L Total Protein 6.4 (5.8-8.3) g/dL Albumin 3.4 (3.0-4.8) g/dL Globulin 3.0 gm/dL Albumin/Globulin Ratio 1.1 (1.1-1.8) 06/12/17 06/11/17 06/11/17 Range/Units 00:11 23:47 21:48 WBC (4.5-11.0) 10^3/ul RBC (3.5-6.1) 10^6/uL Hgb (14.0-18.0) g/dL Hct (42.0-52.0) % MCV (80.0-105.0) fl MCH (25.0-35.0) pg MCHC (31.0-37.0) g/dl RDW (11.5-14.5) % Plt Count (120.0-450.0) 10^3/uL MPV (7.0-11.0) fl Gran % (50.0-68.0) % Lymph % (Auto) (22.0-35.0) % [place] % (Auto) (1.0-6.0) % Eos % (Auto) (1.5-5.0) % Baso % (Auto) (0.0-3.0) % Gran # (1.4-6.5) Lymph # (1.2-3.4) [place] # (0.1-0.6) Eos # (0.0-0.7) Baso # (0.0-2.0) K/mm3 Neutrophils % (Manual) (50.0-70.0) % Lymphocytes % (Manual) (22.0-35.0) % Monocytes % (Manual) (1.0-6.0) % Platelet Evaluation (NORMAL) Large Platelets D-Dimer, Quantitative (0-243) ng/mL pCO2 56 H (35-45) mm/Hg pO2 114.0 H (80-100) mm/Hg HCO3 27.6 (21-28) mmol/L ABG pH 7.30 L (7.35-7.45) ABG Total CO2 29.3 H (22-28) mmol.L ABG O2 Saturation 99.0 H (95-98) % ABG O2 Content 16.0 (15-23) ML/dl ABG Base Excess 0.3 (-2.0-3.0) mmol/L ABG Hemoglobin 11.7 (11.7-17.4) g/dL ABG Carboxyhemoglobin 1.9 H (0.5-1.5) % POC ABG HHb (Measured) 1.0 (0-5) % ABG Methemoglobin 1.0 (0.0-3.0) % ABG O2 Capacity 16.2 (16-24) mL/dl Hgb O2 Saturation 96.2 (95.0-98.0) % FiO2 40.0 % Sodium (132-148) mmol/L Potassium (3.6-5.0) mmol/L Chloride (98-107) mmol/L Carbon Dioxide (21-33) mmol/L Anion Gap (10-20) BUN (7-21) mg/dL Creatinine (0.8-1.5) mg/dl Est GFR ( Amer) Est GFR (Non-Af Amer) POC Glucose (mg/dL) 179 H 97 (65-110) mg/dL Random Glucose (70-110) mg/dL Calcium (8.4-10.5) mg/dL Phosphorus (2.5-4.5) mg/dL Magnesium (1.7-2.2) mg/dL Total Bilirubin (0.2-1.3) mg/dL AST (17-59) U/L ALT (7-56) U/L Alkaline Phosphatase (38-126) U/L Total Protein (5.8-8.3) g/dL Albumin (3.0-4.8) g/dL Globulin gm/dL Albumin/Globulin Ratio (1.1-1.8) 06/11/17 06/11/17 06/11/17 Range/Units 21:17 20:30 16:27 WBC (4.5-11.0) 10^3/ul RBC (3.5-6.1) 10^6/uL Hgb (14.0-18.0) g/dL Hct (42.0-52.0) % MCV (80.0-105.0) fl MCH (25.0-35.0) pg MCHC (31.0-37.0) g/dl RDW (11.5-14.5) % Plt Count (120.0-450.0) 10^3/uL MPV (7.0-11.0) fl Gran % (50.0-68.0) % Lymph % (Auto) (22.0-35.0) % Cavalier % (Auto) (1.0-6.0) % Eos % (Auto) (1.5-5.0) % Baso % (Auto) (0.0-3.0) % Gran # (1.4-6.5) Lymph # (1.2-3.4) Cavalier # (0.1-0.6) Eos # (0.0-0.7) Baso # (0.0-2.0) K/mm3 Neutrophils % (Manual) (50.0-70.0) % Lymphocytes % (Manual) (22.0-35.0) % Monocytes % (Manual) (1.0-6.0) % Platelet Evaluation (NORMAL) Large Platelets D-Dimer, Quantitative (0-243) ng/mL pCO2 (35-45) mm/Hg pO2 (80-100) mm/Hg HCO3 (21-28) mmol/L ABG pH (7.35-7.45) ABG Total CO2 (22-28) mmol.L ABG O2 Saturation (95-98) % ABG O2 Content (15-23) ML/dl ABG Base Excess (-2.0-3.0) mmol/L ABG Hemoglobin (11.7-17.4) g/dL ABG Carboxyhemoglobin (0.5-1.5) % POC ABG HHb (Measured) (0-5) % ABG Methemoglobin (0.0-3.0) % ABG O2 Capacity (16-24) mL/dl Hgb O2 Saturation (95.0-98.0) % FiO2 % Sodium 133 (132-148) mmol/L Potassium 4.2 (3.6-5.0) mmol/L Chloride 93 L (98-107) mmol/L Carbon Dioxide 31 (21-33) mmol/L Anion Gap 13 (10-20) BUN 31 H (7-21) mg/dL Creatinine 1.1 (0.8-1.5) mg/dl Est GFR ( Amer) > 60 Est GFR (Non-Af Amer) > 60 POC Glucose (mg/dL) 58 L 96 (65-110) mg/dL Random Glucose 61 L (70-110) mg/dL Calcium 9.0 (8.4-10.5) mg/dL Phosphorus (2.5-4.5) mg/dL Magnesium (1.7-2.2) mg/dL Total Bilirubin (0.2-1.3) mg/dL AST (17-59) U/L ALT (7-56) U/L Alkaline Phosphatase (38-126) U/L Total Protein (5.8-8.3) g/dL Albumin (3.0-4.8) g/dL Globulin gm/dL Albumin/Globulin Ratio (1.1-1.8) 06/11/ Range/Units 15:35 WBC (4.5-11.0) 10^3/ul RBC (3.5-6.1) 10^6/uL Hgb (14.0-18.0) g/dL Hct (42.0-52.0) % MCV (80.0-105.0) fl MCH (25.0-35.0) pg MCHC (31.0-37.0) g/dl RDW (11.5-14.5) % Plt Count (120.0-450.0) 10^3/uL MPV (7.0-11.0) fl Gran % (50.0-68.0) % Lymph % (Auto) (22.0-35.0) % Cavalier % (Auto) (1.0-6.0) % Eos % (Auto) (1.5-5.0) % Baso % (Auto) (0.0-3.0) % Gran # (1.4-6.5) Lymph # (1.2-3.4) Cavalier # (0.1-0.6) Eos # (0.0-0.7) Baso # (0.0-2.0) K/mm3 Neutrophils % (Manual) (50.0-70.0) % Lymphocytes % (Manual) (22.0-35.0) % Monocytes % (Manual) (1.0-6.0) % Platelet Evaluation (NORMAL) Large Platelets D-Dimer, Quantitative 371 H (0-243) ng/mL pCO2 (35-45) mm/Hg pO2 (80-100) mm/Hg HCO3 (21-28) mmol/L ABG pH (7.35-7.45) ABG Total CO2 (22-28) mmol.L ABG O2 Saturation (95-98) % ABG O2 Content (15-23) ML/dl ABG Base Excess (-2.0-3.0) mmol/L ABG Hemoglobin (11.7-17.4) g/dL ABG Carboxyhemoglobin (0.5-1.5) % POC ABG HHb (Measured) (0-5) % ABG Methemoglobin (0.0-3.0) % ABG O2 Capacity (16-24) mL/dl Hgb O2 Saturation (95.0-98.0) % FiO2 % Sodium (132-148) mmol/L Potassium (3.6-5.0) mmol/L Chloride (98-107) mmol/L Carbon Dioxide (21-33) mmol/L Anion Gap (10-20) BUN (7-21) mg/dL Creatinine (0.8-1.5) mg/dl Est GFR ( Amer) Est GFR (Non-Af Amer) POC Glucose (mg/dL) (65-110) mg/dL Random Glucose (70-110) mg/dL Calcium (8.4-10.5) mg/dL Phosphorus (2.5-4.5) mg/dL Magnesium (1.7-2.2) mg/dL Total Bilirubin (0.2-1.3) mg/dL AST (17-59) U/L ALT (7-56) U/L Alkaline Phosphatase (38-126) U/L Total Protein (5.8-8.3) g/dL Albumin (3.0-4.8) g/dL Globulin gm/dL Albumin/Globulin Ratio (1.1-1.8) Laboratory Results - last 24 hr 06/11/17 06/11/17 06/11/17 15:35 16:27 20:30 WBC RBC Hgb Hct MCV MCH MCHC RDW Plt Count MPV Gran % Lymph % (Auto) Cavalier % (Auto) Eos % (Auto) Baso % (Auto) Gran # Lymph # Cavalier # Eos # Baso # Neutrophils % (Manual) Lymphocytes % (Manual) Monocytes % (Manual) Platelet Evaluation Large Platelets D-Dimer, Quantitative 371 H pCO2 pO2 HCO3 ABG pH ABG Total CO2 ABG O2 Saturation ABG O2 Content ABG Base Excess ABG Hemoglobin ABG Carboxyhemoglobin POC ABG HHb (Measured) ABG Methemoglobin ABG O2 Capacity Hgb O2 Saturation FiO2 Sodium 133 Potassium 4.2 Chloride 93 L Carbon Dioxide 31 Anion Gap 13 BUN 31 H Creatinine 1.1 Est GFR ( Amer) > 60 Est GFR (Non-Af Amer) > 60 POC Glucose (mg/dL) 96 Random Glucose 61 L Calcium 9.0 Phosphorus Magnesium Total Bilirubin AST ALT Alkaline Phosphatase Total Protein Albumin Globulin Albumin/Globulin Ratio 06/11/17 06/11/17 06/11/17 21:17 21:48 23:47 WBC RBC Hgb Hct MCV MCH MCHC RDW Plt Count MPV Gran % Lymph % (Auto) Cavalier % (Auto) Eos % (Auto) Baso % (Auto) Gran # Lymph # Cavalier # Eos # Baso # Neutrophils % (Manual) Lymphocytes % (Manual) Monocytes % (Manual) Platelet Evaluation Large Platelets D-Dimer, Quantitative pCO2 pO2 HCO3 ABG pH ABG Total CO2 ABG O2 Saturation ABG O2 Content ABG Base Excess ABG Hemoglobin ABG Carboxyhemoglobin POC ABG HHb (Measured) ABG Methemoglobin ABG O2 Capacity Hgb O2 Saturation FiO2 Sodium Potassium Chloride Carbon Dioxide Anion Gap BUN Creatinine Est GFR ( Amer) Est GFR (Non-Af Amer) POC Glucose (mg/dL) 58 L 97 179 H Random Glucose Calcium Phosphorus Magnesium Total Bilirubin AST ALT Alkaline Phosphatase Total Protein Albumin Globulin Albumin/Globulin Ratio 06/12/17 06/12/17 06/12/17 00:11 05:00 06:40 WBC RBC Hgb Hct MCV MCH MCHC RDW Plt Count MPV Gran % Lymph % (Auto) Cavalier % (Auto) Eos % (Auto) Baso % (Auto) Gran # Lymph # Cavalier # Eos # Baso # Neutrophils % (Manual) Lymphocytes % (Manual) Monocytes % (Manual) Platelet Evaluation Large Platelets D-Dimer, Quantitative pCO2 56 H 46 H pO2 114.0 H 116.0 H HCO3 27.6 31.2 H ABG pH 7.30 L 7.44 ABG Total CO2 29.3 H 32.6 H ABG O2 Saturation 99.0 H 99.5 H ABG O2 Content 16.0 14.0 L ABG Base Excess 0.3 6.3 H ABG Hemoglobin 11.7 10.2 L ABG Carboxyhemoglobin 1.9 H 2.3 H POC ABG HHb (Measured) 1.0 0.5 ABG Methemoglobin 1.0 0.9 ABG O2 Capacity 16.2 14.1 L Hgb O2 Saturation 96.2 96.2 FiO2 40.0 40.0 Sodium 129 L Potassium 4.8 Chloride 93 L Carbon Dioxide 29 Anion Gap 12 BUN 35 H Creatinine 1.3 Est GFR ( Amer) > 60 Est GFR (Non-Af Amer) 53 POC Glucose (mg/dL) Random Glucose 217 H Calcium 9.2 Phosphorus 4.8 H Magnesium 2.0 Total Bilirubin 1.1 AST 43 ALT 58 H Alkaline Phosphatase 159 H D Total Protein 6.4 Albumin 3.4 Globulin 3.0 Albumin/Globulin Ratio 1.1 06/12/17 06:40 WBC 6.4 RBC 3.37 L Hgb 10.4 L Hct 31.3 L MCV 92.9 MCH 30.9 MCHC 33.2 RDW 13.7 Plt Count 183 MPV 10.7 Gran % 92.0 H Lymph % (Auto) 5.6 L Cavalier % (Auto) 2.0 Eos % (Auto) 0.2 L Baso % (Auto) 0.2 Gran # 5.87 Lymph # 0.4 L Cavalier # 0.1 Eos # 0.0 Baso # 0.01 Neutrophils % (Manual) 95 H Lymphocytes % (Manual) 3 L Monocytes % (Manual) 2 Platelet Evaluation Normal Large Platelets Present D-Dimer, Quantitative pCO2 pO2 HCO3 ABG pH ABG Total CO2 ABG O2 Saturation ABG O2 Content ABG Base Excess ABG Hemoglobin ABG Carboxyhemoglobin POC ABG HHb (Measured) ABG Methemoglobin ABG O2 Capacity Hgb O2 Saturation FiO2 Sodium Potassium Chloride Carbon Dioxide Anion Gap BUN Creatinine Est GFR ( Amer) Est GFR (Non-Af Amer) POC Glucose (mg/dL) Random Glucose Calcium Phosphorus Magnesium Total Bilirubin AST ALT Alkaline Phosphatase Total Protein Albumin Globulin Albumin/Globulin Ratio Critical Care Progress Note - Nutrition Nutrition: Nutrition Category Date Time Status Consistent Carbohydrate [DIET] Diets 06/03/17 Dinner Ordered Assessment/Plan - Assessment and Plan (Free Text) Plan: Patient seen and examined, on rounds with resident, agree with note with following additions/exceptions: 82 year old male PMHx severe pulmonary hypertension, hypertension, CAD, DM II, CHF s/p CABG and aortic valve replacement (bioprosthetic) 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 Currently awake, alert, NAD, on BIPAP 10/5/40%, sat 100%, comfortable. Recommend: - cont with BIPAP as needed, titrate off to NC - Solumedrol 40mg Q8hr IV - Follow up Pulmonary - Milrinone - Continue lopressor, lipitor, lasix - Follow up cardiology - Cont with Revatio - GI ppx - DVT ppx - Monitor in MICU
[2017-06-12] MEDS: Sildenafil 20 MG TAB PO SCH ×2 (14:27→22:08)
[2017-06-12] MEDS: Fluticasone Nasal 50 mcg/Spray NS SCH (14:33)
[2017-06-12] MEDS: LETAIRIS 5 MG PO SCH (14:34)
[2017-06-12] MEDS: Nystatin 100,000 Units/gm Topical Pow(15 gm) TOP SCH (14:34)
[2017-06-12] MEDS: Meropenem IV 1 gm in NS 50 ML IVPB SCH ×2 (14:43→22:07)
[2017-06-12] MEDS: MethylPREDNISolone 40 mg Vial IVP SCH (14:45)
[2017-06-12 15:46] LABS: PH,URINE 5.5 (4.7-8.0); URINE BILIRUBIN NEGATIVE (NEGATIVE); URINE BLOOD MODERATE (NEGATIVE); URINE GLUCOSE (UA) 100 mg/dL (NEGATIVE); URINE LEUKOCYTE ESTERASE SMALL Leu/uL (NEGATIVE); URINE NITRATE NEGATIVE (NEGATIVE); URINE PROTEIN TRACE mg/dL (<30 mg/dL); URINE UROBILINOGEN 0.2 E.U./dL (<1 E.U./dL)
[2017-06-12 15:47] LABS: URINE APPEARANCE CLEAR (CLEAR); URINE COLOR YELLOW (YELLOW)
[2017-06-12 15:52] LABS: URINE EPITHELIAL CELLS 0 - 2 /hpf (0-5); URINE RBC 15 - 20 /hpf (0-2)
[2017-06-12 15:53] LABS: URINE AMORPHOUS SEDIMENT FEW; URINE BACTERIA MANY (NEG)
--- NOTE | 2017-06-12 15:59 | PN ---
DATE: 06/12/2017 REASON FOR CONSULTATION AND FOLLOWUP: Cardiac evaluation; pulmonary hypertension; CAD; one-vessel CABG, status post aortic valve replacement and bioprosthetic mitral valve repair; and respiratory distress, had moved to ICU. SUBJECTIVE: The patient denies any chest pain, shortness of breath, or any palpitation. Feels a lot better since last night. OBJECTIVE: GENERAL: Not in apparent distress. Lying flat in the bed without CPAP. VITAL SIGNS: As follows, temperature afebrile, heart rate 94, and blood pressure 112/42. HEENT: PERRLA. Extraocular muscles intact. NECK: Supple. No carotid bruits or thyromegaly. CHEST: Clear to auscultation. HEART: S1 and S2, regular. ABDOMEN: Soft. EXTREMITIES: Clubbing and cyanosis negative. LABORATORY DATA: Blood workup as follows: WBC 6.4, hemoglobin 10.4, hematocrit 31.3, and platelet count 183. Chemistry shows sodium of 129, potassium 4.8, chloride 93, carbon dioxide 29, anion gap of 12, BUN 35, and creatinine 1.3. IMPRESSION: An 82-year-old male with past medical history significant for pulmonary hypertension; severe aortic stenosis in the past, status post aortic valve repair, bioprosthetic, status post mitral valve repair; one-vessel coronary artery bypass graft; history of pulmonary hypertension. Right ventricular systolic 151 by echocardiogram and recent right heart catheterization, right ventricular pressure was 103, on Primacor and medication for pulmonary hypertension. Pulmonary vascular resistance 10.6 Wood unit, ejection fraction of 65%, last night respiratory status get deteriorated, possibly requiring intubation, moved to ICU, but managed with CPAP, now the patient is comfortable. Chest x-ray is consistent with mild congestion, though there is poor under-penetrated films and officially read see which is not favor, but not completely occluded, no definite alveolar infiltrate in official reading. CT chest was done last night and was negative for pulmonary embolism, though bilateral pleural effusion noted, but bilateral lower lung consolidation is increased by the CT. Recommend probably this new deterioration in the respiratory status, it could be secondary to a little bit pneumonia as a pulmonary hypertension and mild congestive heart failure. RECOMMENDATIONS: Broad-spectrum antibiotic. Give gentle diuretics. Continue milrinone. We will give one dose of Lasix. Continue DVT prophylaxis. Continue low-dose beta-jess. We will follow with you. Thank you Dr. Booker for providing us the opportunity in taking care of patient, Emory Arboleda. We will follow with you. Guru Sosa MD
--- NOTE | 2017-06-12 18:22 | US ---
HISTORY: Gallbladder disease dissects common bile duct COMPARISON: 05/21/2017 abdominal ultrasound. Common bile duct measurement on the prior study 3.8 mm. TECHNIQUE: Sonographic evaluation of the abdomen. FINDINGS: LIVER: Measures 14.8 x 13.7 cm. Patent portal vein. Portal venous flow: Hepatopetal. Unremarkeable echogenicity of the liver parenchyma. No mass. No intrahepatic bile duct dilatation. GALLBLADDER: Cholelithiasis. Negative study for gallbladder wall thickening, pericholecystic fluid, sonographic Benavidez's sign. COMMON BILE DUCT: Measures 3.5 mm. No stones. No dilatation. PANCREAS: Unremarkable as visualized. No mass. No ductal dilatation. RIGHT KIDNEY: Measures 4.6 x 10.7cm. Normal echogenicity. No calculus, mass, or hydronephrosis. LEFT KIDNEY: Measures 5.3 x 11.2cm. Normal echogenicity. No calculus, mass, or hydronephrosis. SPLEEN: Normal in size and contour. No mass. AORTA: No aneurysmal dilatation. IVC: Unremarkable. OTHER FINDINGS: Incidental finding(s): Right pleural effusion IMPRESSION: Cholelithiasis. No sonographic evidence of acute cholecystitis. Normal common bile duct diameter 3.5 mm similar to that seen previously.
--- NOTE | 2017-06-12 22:50 | CON ---
DATE: 06/12/2017 The patient seen in the ICU 128, bed 2. CHIEF COMPLAINT: Shortness of breath, times several days. HISTORY OF PRESENT ILLNESS: This is an 82-year-old male originally from [place] with coronary artery disease, cerebrovascular accident, asthma, congestive heart failure, endocarditis, prostate cancer, peripheral neuropathy, hypertension. The patient has been in the hospital since the 05/31/2017 and had a long hospitalization. Now, the patient's condition, the patient is in the ICU with shortness of breath and Infectious Disease consultation is requested for antibiotic choice for possible infiltrate on chest x-ray and no new alveolar infiltrate is appreciated bilaterally and he had some chest x-ray and the patient did have a CAT scan even of the chest yesterday. The patient had a rapid response. Infectious Disease consultation requested for antibiotic choice. REVIEW OF SYSTEMS: Reveals there is no fevers and no chills. There is shortness of breath. No abdominal pain, diarrhea or constipation. No bright red blood per rectum. No melena. No dysuria or frequency. PAST MEDICAL HISTORY: Significant for coronary artery disease, cerebrovascular accident, asthma, congestive heart failure, endocarditis, prostate cancer, peripheral neuropathy, hypertension, glaucoma, and diabetes. PAST SURGICAL HISTORY: Significant for AVR, coronary artery bypass graft, and gastric bypass, biopsy in 2013. ALLERGIES: THE PATIENT HAS NO KNOWN ALLERGIES. MEDICATIONS AT HOME: Reviewed. PHYSICAL EXAMINATION: VITAL SIGNS: The patient's temperature is 98, heart rate of 99, respiratory rate of 36, blood pressure is 112/40. HEENT: Unremarkable. NECK: Supple. LUNGS: Have decreased breath sounds. HEART: Normal S1, S2. ABDOMEN: Soft, nontender. No organomegaly. No rebound. No guarding. No masses. LABORATORY EXAMINATION: Reveals the patient has a white count of 6.4, hemoglobin of 10 and platelets of 183. Coagulation is noted and chemistries reveals a BUN of 35, creatinine of 1.3. The patient's creatinine has been mildly elevated throughout the hospitalization and the patient's alk phos is 159. The patient is also on Solu-Medrol. Review of the chemistries are noted. Review of the chest x-ray is noted. CAT scan is noted. ASSESSMENT/PLAN: This is an 82-year-old male with coronary artery disease, cerebrovascular accident, asthma, congestive heart failure, endocarditis, prostate cancer, peripheral neuropathy, hypertension, glaucoma, diabetes, history of aortic valve replacement and coronary artery bypass graft, renal insufficiency, admitted with diagnosis of congestive heart failure and now with worsening shortness of breath and rapid response and new infiltrate. The patient with left ventricular ejection fraction of 65% in April, presenting now with: 1. Tachycardia, dyspnea, hypoxia with a pulse oximetry of 91%, and new infiltrate. 2. Severe sepsis secondary to hospital-acquired healthcare-associated pneumonia with acute diastolic congestive heart failure on chronic congestive heart failure and we will order blood cultures and rule out recurrence of endocarditis, urine culture, sputum culture, urinalysis, procalcitonin. Start the patient on meropenem and doxycycline. We will order an ultrasound because of concern about the gallbladder and ulcer in the abdomen and common bile duct size and we will make further recommendation pending dailey-culture and initial results. Case discussed with Dr. Booker. Segun Cavazos MD
--- NOTE | 2017-06-13 00:26 | PN ---
DATE: 06/12/2017 SUBJECTIVE: The patient is now in the Intensive Care Unit. The patient had acute shortness of breath yesterday, being treated for. PHYSICAL EXAMINATION VITAL SIGNS: Temperature afebrile, blood pressure is 125/66, pulse 88 per minute. HEENT: Atraumatic. Anicteric. NECK: Supple. HEART: S1 and S2 heard. LUNGS: Basilar air entry reduced. Few scattered rhonchi present. ABDOMEN: Soft. There is no tenderness. LABORATORY DATA: Hemoglobin 10.4, hematocrit 31.3, WBC 6.4, platelets 183. Chemistry shows alkaline phosphatase slightly elevated at 159, ALT 54. IMPRESSION: This is an 82-year-old patient with severe pulmonary hypertension, valvular heart disease, coronary artery disease, admitted to the ICU with worsening of shortness of breath. The patient has pleural effusion and bilateral lung consolidation. The patient was on BiPAP. The patient had ultrasound done, which showed gallstones. CBC has remained normal. We would recommend; 1. Follow up of the liver function tests, has mildly elevated liver function tests today may be secondary to this hepatic congestion and worsening of the cardiac function DD include drug-induced. The patient is tolerating diet. We will continue to closely follow up his care and suggest further management. Thank you very much for allowing us to participate in the care of the patient. Karly Fraser MD [facility]
--- NOTE | 2017-06-13 00:48 | PN ---
DATE: 06/12/2017 PULMONARY PROGRESS NOTE REFERRING PHYSICIAN: Arya Booker MD SUBJECTIVE: He is sitting up in a Incentive Care Unit bed. is at bedside. Family is at the bedside. Overnight events noted. Had rapid response done, went to pulmonary edema, was placed on noninvasive ventilation. Diuretics was given. Overnight slowly improved. Still short of breath with minimal exertion. Has some cough. No nausea. No vomiting, diarrhea. No leg pain or leg swelling. PHYSICAL EXAMINATION: GENERAL: In no acute distress. VITAL SIGNS: Temperature is 98, heart rate is 96, respiratory rate is 20 to 30, blood pressure is 133/55 and pulse oximetry is 92% on nasal cannula. HEENT: Moist mucous membranes. Crowded airway. NECK: Supple. No JVD. LUNGS: Has a few crackles. HEART: S1 and S2. ABDOMEN: Soft and nontender. No organomegaly. EXTREMITIES: There is no edema. NEUROLOGICAL: Awake and alert. Follow simple commands. MEDICATIONS: He is on Ambien 5 mg at bedtime p.r.n., Atrovent inhaler q. 6 hours, doxycycline 100 mg twice a day, Flonase one spray each nostril daily, Letairis 5 mg daily, Lasix 40 mg daily, Levemir 10 units daily, Lipitor 40 mg daily, metoprolol tartrate 12.5 mg twice a day, Lovenox 40 mg daily, magnesium oxide 400 mg twice a day, meropenem 1 g q.12 hours, MiraLax 17 g daily, gabapentin 100 mg daily, Nystatin to affected area, Primacor IV drip, Protonix 40 mg daily, Revatio 20 mg q. 8 hours, Solu-Medrol 40 mg q. 8 hours, Wellbutrin 75 mg twice a day, Xanax 1.25 mg q. 6 hours and Xopenex inhale q. 4 hours p.r.n. LABORATORY DATA: Reviewed shows hemoglobin 10.4, hematocrit 31.3, WBC 6.4 and platelets 183. Yesterday's D-dimer was 371. Blood gas this morning show pH 7.44, pCO2 46, O2 is 116, this is on 40% oxygen. Sodium 129, potassium 4.8, chloride 93, bicarbonate 29, BUN 35, creatinine 1.3, glucose 217, calcium 9.2, phosphorus 4.8 and magnesium 2.0. AST 43, ALT 58, alk phos is 159, albumin 3.4. Urinalysis shows WBC's 5 to 10. Chest x-ray done this morning shows pleural effusion, congestion. IMPRESSION AND PLAN: Severe pulmonary hypertension, left heart cardiomyopathy, valvular heart disease, high pulmonary occlusion pressure, diabetes, history of valvular heart disease. Had rapid response last night, found to have pulmonary edema. Thus, suggested dysfunction of the left heart. Case discussed with Dr. Booker in detail. Spoke to family at the bedside. I had long discussion with the pharmacist, so from here on one choice is we can increase Primacor. Continue Revatio 20 mg 3 times a day. Ideally, need to increase Letairis to 10 mg daily. Also, working to get patient Orenitram, starting dose will be 0.25 mg going up to 1.25 mg daily basis which is prostacyclin. Of course, overall it is a poor prognosis until these medications started. We will also need Cardiology help to decrease afterload and control the blood pressure a little better. Followup labs in the morning. Critical care time spent more than 35 minutes. Thank you and we will follow with you. Guru Bustos MD
[2017-06-13] MEDS: Levalbuterol 1.25 MG/3 ML Inhal Soln UD IH SCH ×4 (02:10→20:40)
[2017-06-13] MEDS: Ipratropium 0.02% Inhal Soln (0.5 mg/2.5 ml) UD IH SCH ×4 (02:11→20:40)
[2017-06-13] MEDS: Insulin Reg-LOW-Coverage SC SCH ×3 (08:38→17:22)
[2017-06-13] MEDS: Meropenem IV 1 gm in NS 50 ML IVPB SCH ×2 (08:56→09:19)
[2017-06-13] MEDS: Enoxaparin 40 mg Syringe SC SCH (09:12)
[2017-06-13] MEDS: POLYETHYLENE GLYCOL 3350 17 GM/Dose PACKET PO SCH (09:12)
[2017-06-13] MEDS: Pantoprazole 40 mg EC Tab PO SCH (09:12)
[2017-06-13] MEDS: Insulin Detemir 100 units/ml Vial (Levemir) SC SCH ×2 (09:14→22:43)
[2017-06-13] MEDS: Magnesium Oxide 400 mg Tab UD PO SCH ×2 (09:19→17:47)
--- NOTE | 2017-06-13 10:01 | RAD ---
HISTORY: sob COMPARISON: 06/12/2017 FINDINGS: LUNGS: There is significant improvement in bilateral vascular in interstitial congestion PLEURA: No significant pleural effusion identified, no pneumothorax apparent. CARDIOVASCULAR: Moderate cardiomegaly OSSEOUS STRUCTURES: No significant abnormalities. VISUALIZED UPPER ABDOMEN: Normal. OTHER FINDINGS: None. IMPRESSION: There is significant improvement in bilateral vascular in interstitial congestion
[2017-06-13 10:14] LABS: BASO # 0.01 K/mm3 (0.0-2.0); BASO % 0.1 % (0.0-3.0); GRAN # 15.9 (1.4-6.5); GRAN % 87.5 % (50.0-68.0); HEMOGLOBIN 9.9 g/dL (14.0-18.0); LYMPH # 1.4 (1.2-3.4); LYMPH % 7.8 % (22.0-35.0); MEAN CELL VOLUME 92.1 fl (80.0-105.0); MEAN CORPUSCULAR HEMOGLOBIN 31.4 pg (25.0-35.0); MEAN CORPUSCULAR HGB CONC 34.1 g/dl (31.0-37.0); MEAN PLATELET VOLUME 10.8 fl (7.0-11.0); MONO # 0.8 (0.1-0.6); MONO % 4.6 % (1.0-6.0); RBC 3.15 10^6/uL (3.5-6.1); RED CELL DISTRIBUTION WIDTH 13.8 % (11.5-14.5); WHITE BLOOD COUNT 18.2 10^3/ul (4.5-11.0)
[2017-06-13] MEDS: Milrinone 20mg/100ml D5W 100 ML IV PRN ×2 (10:37→22:44)
[2017-06-13 10:38] LABS: ALB/GLOB RATIO 1.1 (1.1-1.8); ALBUMIN 3.4 g/dL (3.0-4.8); CALCIUM 9.5 mg/dL (8.4-10.5); MAGNESIUM 2.2 mg/dL (1.7-2.2)
--- NOTE | 2017-06-13 11:06 | CP.CCUPN ---
<Hayes Sidhu - Last Filed: 06/13/17 11:00> CCU Subjective - Physician Review Subjective (Free Text): Critical Care Progress Note for Dr. Gomez Patient seen and examined at bedside. No acute event overnight. Patient was on BIPAP this morning and now placed on nasal cannula. He is currently tolerating with O2 saturation of 96%. Patient states breathing is better than yesterday. He denies any pain. Tolerating diet. Denies fever/chills, chest pain, SOB, abdominal pain, nausea/vomiting/diarrhea, constipation. CCU Objective - Vital Signs / Intake & Output Vital Signs (Last 4 hours): Vital Signs Pulse Resp BP Pulse Ox 06/13/17 10:37 83 131/63 06/13/17 09:09 86 126/61 06/13/17 08:36 119/62 06/13/17 07:48 89 06/13/17 07:10 91 H 50 H 97 Intake and Output (Last 8hrs): Intake & Output 06/12/17 06/13/17 06/13/17 22:59 06:59 14:59 Intake Total 928 96 100 Output Total 445 135 Balance 483 -39 100 Weight 200 lb Intake: IV 298 96 100 Left Antecubital 70 Right Forearm 128 96 Oral 630 Output: Urine 445 135 Urethral (Johnson) 445 135 Other: # Bowel Movements 1 - Physical Exam Head: Positive for: Atraumatic, Normocephalic Pupils: Positive for: PERRL Extroacular Muscles: Positive for: EOMI Conjunctiva: Positive for: Normal Mouth: Positive for: Moist Mucous Membranes Neck: Positive for: Normal Range of Motion Respiratory/Chest: Positive for: Decreased Breath Sounds. Negative for: Respiratory Distress, Accessory Muscle Use, Wheezes, Rales, Retracting, Rhonchi Cardiovascular: Positive for: Regular Rate and Rhythm. Negative for: Murmurs Abdomen: Positive for: Normal Bowel Sounds. Negative for: Tenderness, Distention, Peritoneal Signs, Rebound Back: Positive for: Normal Inspection Upper Extremity: Positive for: Neurovascularly Intact. Negative for: Cyanosis, Edema Lower Extremity: Positive for: Neurovascularly Intact. Negative for: Edema, CALF TENDERNESS, Preeti's Sign Neurological: Positive for: GCS=15, CN II-XII Intact, Speech Normal Skin: Positive for: Warm, Dry, Normal Color. Negative for: Rashes Psychiatric: Positive for: Alert, Oriented x 3, Normal Insight, Normal Concentration - Medications Active Medications: Active Medications Generic Name Dose Route Start Last Admin Trade Name Belia PRN Reason Stop Dose Admin Atorvastatin Calcium 40 mg 06/01/17 10:00 06/13/17 09:12 Lipitor PO 40 mg DAILY BAKARI Administration Bupropion HCl 75 mg 06/03/17 14:31 06/13/17 09:12 Wellbutrin PO 75 mg BID BAKARI Administration Doxycycline Hyclate 100 mg 06/12/17 22:00 06/13/17 09:10 Doryx PO 06/22/17 22:01 100 mg Q12 BAKARI Administration Protocol Enoxaparin Sodium 40 mg 06/11/17 15:45 06/13/17 09:12 Lovenox SC 40 mg DAILY BAKARI Administration Protocol Fluticasone Propionate 1 actuation 06/08/17 16:45 06/12/17 14:33 Flonase NS Not Given DAILY BAKARI Furosemide 40 mg 06/12/17 10:00 06/13/17 08:36 Lasix IVP 40 mg DAILY BAKARI Administration Gabapentin 100 mg 06/08/17 10:00 06/13/17 09:11 Neurontin PO 100 mg DAILY BAKARI Administration Home Med 1 unit 06/11/17 10:00 06/12/17 14:34 Home Med PO Not Given DAILY BAKARI Milrinone Lactate/Dextrose 100 mls @ 8.057 mls/hr 06/06/17 16:47 06/13/17 10: 37 Primacor 20mg/100ml D5w IV 0.375 mcg/kg/min .[id number] PRN 8.057 mls/hr TITRATE PER MD ORDER Administration Protocol 0.375 MCG/KG/MIN Meropenem 50 mls @ 100 mls/hr 06/12/17 13:21 06/13/17 09:19 Merrem Iv 1 Gm Premix IVPB 06/21/17 13:22 Not Given Q12 [facility] Protocol Insulin Detemir 10 unit 06/08/17 10:00 06/13/17 09:14 Levemir SC 10 unit DAILY BAKARI Administration Insulin Human Regular 0 units 06/07/17 22:00 06/13/17 08:38 Humulin R Low SC 1 units ACHS BAKARI Administration Protocol Ipratropium Jackson 0.5 mg 06/01/17 14:00 06/13/17 07:46 Atrovent IH 0.5 mg [id number] BAKARI Administration Levalbuterol HCl 1.25 mg 06/01/17 12:40 06/13/17 07:46 Xopenex IH 1.25 mg [id number] BAKARI Administration Levalbuterol HCl 0.63 mg 06/01/17 12:42 06/11/17 23:56 Xopenex IH 0.63 mg [id number] PRN Administration Shortness of Breath Magnesium Oxide 400 mg 06/01/17 10:00 06/13/17 09:19 Mag-Ox PO 400 mg BID BAKARI Administration Methylprednisolone 40 mg 06/12/17 10:30 06/12/17 14:45 Solu-Medrol IVP 40 mg Q8H BAKARI Administration Metoprolol Tartrate 12.5 mg 06/01/17 22:00 06/13/17 09:09 Lopressor PO 12.5 mg Q12 BAKARI Administration Atomoxetine Hcl [ 60 mg 06/01/17 10:00 06/13/17 09:17 Strattera] 60 Mg PO Not Given DAILY BAKARI Nystatin 0 gm 06/09/17 11:30 06/12/17 14:34 Nystop Topical Powder TOP Not Given DAILY BAKARI Pantoprazole Sodium 40 mg 06/04/17 10:00 06/13/17 09:12 Protonix Ec Tab PO 40 mg DAILY BAKARI Administration Polyethylene Glycol 17 gm 06/06/17 10:00 06/13/17 09:12 Miralax PO 17 gm DAILY BAKARI Administration Sildenafil Citrate 20 mg 06/01/17 14:00 06/12/17 22:08 Revatio PO 20 mg Q8 BAKARI Administration Sodium Chloride 0 ml 06/08/17 16:37 [place] Nasal Banks NS TID PRN Nasal congestion Zolpidem Tartrate 5 mg 06/05/17 00:24 06/11/17 23:29 Ambien PO 5 mg HS PRN Administration Insomnia Protocol - Patient Studies Lab Studies: Lab Studies 06/13/17 06/13/17 06/13/17 Range/Units 10:00 10:00 07:22 WBC 18.2 H D (4.5-11.0) 10^3/ul RBC 3.15 L (3.5-6.1) 10^6/uL Hgb 9.9 L (14.0-18.0) g/dL Hct 29.0 L (42.0-52.0) % MCV 92.1 (80.0-105.0) fl MCH 31.4 (25.0-35.0) pg MCHC 34.1 (31.0-37.0) g/dl RDW 13.8 (11.5-14.5) % Plt Count 199 (120.0-450.0) 10^3/uL MPV 10.8 (7.0-11.0) fl Gran % 87.5 H (50.0-68.0) % Lymph % (Auto) 7.8 L (22.0-35.0) % Butts % (Auto) 4.6 (1.0-6.0) % Eos % (Auto) 0.0 L (1.5-5.0) % Baso % (Auto) 0.1 (0.0-3.0) % Gran # 15.90 H (1.4-6.5) Lymph # 1.4 (1.2-3.4) Butts # 0.8 H (0.1-0.6) Eos # 0.0 (0.0-0.7) Baso # 0.01 (0.0-2.0) K/mm3 Sodium 131 L (132-148) mmol/L Potassium 4.6 (3.6-5.0) mmol/L Chloride 93 L (98-107) mmol/L Carbon Dioxide 30 (21-33) mmol/L Anion Gap 13 (10-20) BUN 62 H (7-21) mg/dL Creatinine 1.9 H (0.8-1.5) mg/dl Est GFR ( Amer) 41 Est GFR (Non-Af Amer) 34 POC Glucose (mg/dL) 265 H (65-110) mg/dL Random Glucose 259 H (70-110) mg/dL Calcium 9.5 (8.4-10.5) mg/dL Phosphorus 5.4 H (2.5-4.5) mg/dL Magnesium 2.2 (1.7-2.2) mg/dL Total Bilirubin 0.8 (0.2-1.3) mg/dL AST 30 (17-59) U/L ALT 51 (7-56) U/L Alkaline Phosphatase 130 H (38-126) U/L NT-Pro-B Natriuret Pep 5110 H (0-450) pg/mL Total Protein 6.5 (5.8-8.3) g/dL Albumin 3.4 (3.0-4.8) g/dL Globulin 3.0 gm/dL Albumin/Globulin Ratio 1.1 (1.1-1.8) Procalcitonin (0.19-0.49) NG/ML Urine Color (YELLOW) Urine Appearance (CLEAR) Urine pH (4.7-8.0) Ur Specific [place] (1.005-1.035) Urine Protein (<30 mg/dL) mg/dL Urine Glucose (UA) (NEGATIVE) mg/dL Urine Ketones (NEGATIVE) mg/dL Urine Blood (NEGATIVE) Urine Nitrate (NEGATIVE) Urine Bilirubin (NEGATIVE) Urine Urobilinogen (<1 E.U./dL) E.U./dL Ur Leukocyte Esterase (NEGATIVE) Reyna/uL Urine RBC (0-2) /hpf Urine WBC (0-6) /hpf Ur Epithelial Cells (0-5) /hpf Amorphous Sediment Urine Bacteria (NEG) 06/12/17 06/12/17 06/12/17 Range/Units 21:49 16:45 14:40 WBC (4.5-11.0) 10^3/ul RBC (3.5-6.1) 10^6/uL Hgb (14.0-18.0) g/dL Hct (42.0-52.0) % MCV (80.0-105.0) fl MCH (25.0-35.0) pg MCHC (31.0-37.0) g/dl RDW (11.5-14.5) % Plt Count (120.0-450.0) 10^3/uL MPV (7.0-11.0) fl Gran % (50.0-68.0) % Lymph % (Auto) (22.0-35.0) % Butts % (Auto) (1.0-6.0) % Eos % (Auto) (1.5-5.0) % Baso % (Auto) (0.0-3.0) % Gran # (1.4-6.5) Lymph # (1.2-3.4) Butts # (0.1-0.6) Eos # (0.0-0.7) Baso # (0.0-2.0) K/mm3 Sodium (132-148) mmol/L Potassium (3.6-5.0) mmol/L Chloride (98-107) mmol/L Carbon Dioxide (21-33) mmol/L Anion Gap (10-20) BUN (7-21) mg/dL Creatinine (0.8-1.5) mg/dl Est GFR ( Amer) Est GFR (Non-Af Amer) POC Glucose (mg/dL) 334 H 350 H (65-110) mg/dL Random Glucose (70-110) mg/dL Calcium (8.4-10.5) mg/dL Phosphorus (2.5-4.5) mg/dL Magnesium (1.7-2.2) mg/dL Total Bilirubin (0.2-1.3) mg/dL AST (17-59) U/L ALT (7-56) U/L Alkaline Phosphatase (38-126) U/L NT-Pro-B Natriuret Pep (0-450) pg/mL Total Protein (5.8-8.3) g/dL Albumin (3.0-4.8) g/dL Globulin gm/dL Albumin/Globulin Ratio (1.1-1.8) Procalcitonin (0.19-0.49) NG/ML Urine Color Yellow (YELLOW) Urine Appearance Clear (CLEAR) Urine pH 5.5 (4.7-8.0) Ur Specific [place] 1.010 (1.005-1.035) Urine Protein Trace H (<30 mg/dL) mg/dL Urine Glucose (UA) 100 H (NEGATIVE) mg/dL Urine Ketones Negative (NEGATIVE) mg/dL Urine Blood Moderate H (NEGATIVE) Urine Nitrate Negative (NEGATIVE) Urine Bilirubin Negative (NEGATIVE) Urine Urobilinogen 0.2 (<1 E.U./dL) E.U./dL Ur Leukocyte Esterase Small H (NEGATIVE) Reyna/uL Urine RBC 15 - 20 (0-2) /hpf Urine WBC 5 - 10 (0-6) /hpf Ur Epithelial Cells 0 - 2 (0-5) /hpf Amorphous Sediment Few Urine Bacteria Many (NEG) 12 Range/Units 14:00 WBC (4.5-11.0) 10^3/ul RBC (3.5-6.1) 10^6/uL Hgb (14.0-18.0) g/dL Hct (42.0-52.0) % MCV (80.0-105.0) fl MCH (25.0-35.0) pg MCHC (31.0-37.0) g/dl RDW (11.5-14.5) % Plt Count (120.0-450.0) 10^3/uL MPV (7.0-11.0) fl Gran % (50.0-68.0) % Lymph % (Auto) (22.0-35.0) % Butts % (Auto) (1.0-6.0) % Eos % (Auto) (1.5-5.0) % Baso % (Auto) (0.0-3.0) % Gran # (1.4-6.5) Lymph # (1.2-3.4) Butts # (0.1-0.6) Eos # (0.0-0.7) Baso # (0.0-2.0) K/mm3 Sodium (132-148) mmol/L Potassium (3.6-5.0) mmol/L Chloride (98-107) mmol/L Carbon Dioxide (21-33) mmol/L Anion Gap (10-20) BUN (7-21) mg/dL Creatinine (0.8-1.5) mg/dl Est GFR ( Amer) Est GFR (Non-Af Amer) POC Glucose (mg/dL) (65-110) mg/dL Random Glucose (70-110) mg/dL Calcium (8.4-10.5) mg/dL Phosphorus (2.5-4.5) mg/dL Magnesium (1.7-2.2) mg/dL Total Bilirubin (0.2-1.3) mg/dL AST (17-59) U/L ALT (7-56) U/L Alkaline Phosphatase (38-126) U/L NT-Pro-B Natriuret Pep (0-450) pg/mL Total Protein (5.8-8.3) g/dL Albumin (3.0-4.8) g/dL Globulin gm/dL Albumin/Globulin Ratio (1.1-1.8) Procalcitonin 0.22 (0.19-0.49) NG/ML Urine Color (YELLOW) Urine Appearance (CLEAR) Urine pH (4.7-8.0) Ur Specific [place] (1.005-1.035) Urine Protein (<30 mg/dL) mg/dL Urine Glucose (UA) (NEGATIVE) mg/dL Urine Ketones (NEGATIVE) mg/dL Urine Blood (NEGATIVE) Urine Nitrate (NEGATIVE) Urine Bilirubin (NEGATIVE) Urine Urobilinogen (<1 E.U./dL) E.U./dL Ur Leukocyte Esterase (NEGATIVE) Reyna/uL Urine RBC (0-2) /hpf Urine WBC (0-6) /hpf Ur Epithelial Cells (0-5) /hpf Amorphous Sediment Urine Bacteria (NEG) Laboratory Results - last 24 hr 06/12/17 06/12/17 06/12/17 14:00 14:40 16:45 WBC RBC Hgb Hct MCV MCH MCHC RDW Plt Count MPV Gran % Lymph % (Auto) Butts % (Auto) Eos % (Auto) Baso % (Auto) Gran # Lymph # Butts # Eos # Baso # Sodium Potassium Chloride Carbon Dioxide Anion Gap BUN Creatinine Est GFR ( Amer) Est GFR (Non-Af Amer) POC Glucose (mg/dL) 350 H Random Glucose Calcium Phosphorus Magnesium Total Bilirubin AST ALT Alkaline Phosphatase NT-Pro-B Natriuret Pep Total Protein Albumin Globulin Albumin/Globulin Ratio Procalcitonin 0.22 Urine Color Yellow Urine Appearance Clear Urine pH 5.5 Ur Specific [place] 1.010 Urine Protein Trace H Urine Glucose (UA) 100 H Urine Ketones Negative Urine Blood Moderate H Urine Nitrate Negative Urine Bilirubin Negative Urine Urobilinogen 0.2 Ur Leukocyte Esterase Small H Urine RBC 15 - 20 Urine WBC 5 - 10 Ur Epithelial Cells 0 - 2 Amorphous Sediment Few Urine Bacteria Many 06/12/17 06/13/17 06/13/17 21:49 07:22 10:00 WBC 18.2 H D RBC 3.15 L Hgb 9.9 L Hct 29.0 L MCV 92.1 MCH 31.4 MCHC 34.1 RDW 13.8 Plt Count 199 MPV 10.8 Gran % 87.5 H Lymph % (Auto) 7.8 L Butts % (Auto) 4.6 Eos % (Auto) 0.0 L Baso % (Auto) 0.1 Gran # 15.90 H Lymph # 1.4 Butts # 0.8 H Eos # 0.0 Baso # 0.01 Sodium Potassium Chloride Carbon Dioxide Anion Gap BUN Creatinine Est GFR ( Amer) Est GFR (Non-Af Amer) POC Glucose (mg/dL) 334 H 265 H Random Glucose Calcium Phosphorus Magnesium Total Bilirubin AST ALT Alkaline Phosphatase NT-Pro-B Natriuret Pep Total Protein Albumin Globulin Albumin/Globulin Ratio Procalcitonin Urine Color Urine Appearance Urine pH Ur Specific [place] Urine Protein Urine Glucose (UA) Urine Ketones Urine Blood Urine Nitrate Urine Bilirubin Urine Urobilinogen Ur Leukocyte Esterase Urine RBC Urine WBC Ur Epithelial Cells Amorphous Sediment Urine Bacteria 06/13/17 10:00 WBC RBC Hgb Hct MCV MCH MCHC RDW Plt Count MPV Gran % Lymph % (Auto) Butts % (Auto) Eos % (Auto) Baso % (Auto) Gran # Lymph # Butts # Eos # Baso # Sodium 131 L Potassium 4.6 Chloride 93 L Carbon Dioxide 30 Anion Gap 13 BUN 62 H Creatinine 1.9 H Est GFR ( Amer) 41 Est GFR (Non-Af Amer) 34 POC Glucose (mg/dL) Random Glucose 259 H Calcium 9.5 Phosphorus 5.4 H Magnesium 2.2 Total Bilirubin 0.8 AST 30 ALT 51 Alkaline Phosphatase 130 H NT-Pro-B Natriuret Pep 5110 H Total Protein 6.5 Albumin 3.4 Globulin 3.0 Albumin/Globulin Ratio 1.1 Procalcitonin Urine Color Urine Appearance Urine pH Ur Specific [place] Urine Protein Urine Glucose (UA) Urine Ketones Urine Blood Urine Nitrate Urine Bilirubin Urine Urobilinogen Ur Leukocyte Esterase Urine RBC Urine WBC Ur Epithelial Cells Amorphous Sediment Urine Bacteria Fingerstick Blood Sugar Results: 265 Critical Care Progress Note - Nutrition Nutrition: Nutrition Category Date Time Status Consistent Carbohydrate [DIET] Diets 06/03/17 Dinner Ordered Assessment/Plan - Assessment and Plan (Free Text) Plan: 82 year old [place] male PMHx severe pulmonary hypertension, hypertension, CAD , DM II, CHF s/p CABG and aortic valve replacement (bioprosthetic) with bilateral pleural effusions and lower lung consolidations Neuro: AAO x3 Maintain normothermia answers questions appropriately Cardio: Right heart cath demonstrating severe pulm htn Continue lopressor, lipitor, lasix Primacor gtt Cardiology following, Dr. Sosa Hemodynamically stable Maintain MAP > 65 Pulm: Maintain SaO2 > 90% currently on nasal cannula HOB > 30 degrees CTA negative for PE but showed b/l pleural effusions and b/l lower lung consolidation worsening Daily CXR Severe pulm htn Continue Revatio, atrovent, and xopenex Lasix Solu-medrol 40 mg Q8H Pulm following, Dr. Bustos following GI: Protonix for GI ppx Regular diet Miralax 17g po qd GI Dr. Fraser on consult Renal: Maintain euvolemia Monitor and Replenish electrolytes as needed Endocrine: Levemir 10U ISS Neurontin 100mg po qd Maintain euglycemia 140-180 ID: Afebrile with leukocytosis - likely secondary to steroids Maintain normothermia Continue IV antibiotics Psych: Wellbutrin 75mg po bid Ambien 5mg po hs Heme: Lovenox for DVT ppx Discussed with Dr. Patricia Sidhu PGY1 <Edvin Gomez - Last Filed: 06/13/17 11:15> CCU Objective - Vital Signs / Intake & Output Vital Signs (Last 4 hours): Vital Signs Pulse BP 06/13/17 10:37 83 131/63 06/13/17 09:09 86 126/61 06/13/17 08:36 119/62 06/13/17 07:48 89 Intake and Output (Last 8hrs): Intake & Output 06/12/17 06/13/17 06/13/17 22:59 06:59 14:59 Intake Total 928 96 100 Output Total 445 135 Balance 483 -39 100 Weight 200 lb Intake: IV 298 96 100 Left Antecubital 70 Right Forearm 128 96 Oral 630 Output: Urine 445 135 Urethral (Johnson) 445 135 Other: # Bowel Movements 1 - Medications Active Medications: Active Medications Generic Name Dose Route Start Last Admin Trade Name Freq PRN Reason Stop Dose Admin Atorvastatin Calcium 40 mg 06/01/17 10:00 06/13/17 09:12 Lipitor PO 40 mg DAILY BAKARI Administration Bupropion HCl 75 mg 06/03/17 14:31 06/13/17 09:12 Wellbutrin PO 75 mg BID BAKARI Administration Doxycycline Hyclate 100 mg 06/12/17 22:00 06/13/17 09:10 Doryx PO 06/22/17 22:01 100 mg Q12 BAKARI Administration Protocol Enoxaparin Sodium 40 mg 06/11/17 15:45 06/13/17 09:12 Lovenox SC 40 mg DAILY BAKARI Administration Protocol Fluticasone Propionate 1 actuation 06/08/17 16:45 06/12/17 14:33 Flonase NS Not Given DAILY BAKARI Furosemide 40 mg 06/12/17 10:00 06/13/17 08:36 Lasix IVP 40 mg DAILY BAKARI Administration Gabapentin 100 mg 06/08/17 10:00 06/13/17 09:11 Neurontin PO 100 mg DAILY BAKARI Administration Home Med 1 unit 06/11/17 10:00 06/12/17 14:34 Home Med PO Not Given DAILY BAKARI Milrinone Lactate/Dextrose 100 mls @ 8.057 mls/hr 06/06/17 16:47 06/13/17 10: 37 Primacor 20mg/100ml D5w IV 0.375 mcg/kg/min .[id number] PRN 8.057 mls/hr TITRATE PER MD ORDER Administration Protocol 0.375 MCG/KG/MIN Meropenem 50 mls @ 100 mls/hr 06/12/17 13:21 06/13/17 09:19 Merrem Iv 1 Gm Premix IVPB 06/21/17 13:22 Not Given Q12 BAKARI Protocol Insulin Detemir 10 unit 06/08/17 10:00 06/13/17 09:14 Levemir SC 10 unit DAILY BAKARI Administration Insulin Human Regular 0 units 06/07/17 22:00 06/13/17 08:38 Humulin R Low SC 1 units ACHS BAKARI Administration Protocol Ipratropium Jackson 0.5 mg 06/01/17 14:00 06/13/17 07:46 Atrovent IH 0.5 mg [id number] BAKARI Administration Levalbuterol HCl 1.25 mg 06/01/17 12:40 06/13/17 07:46 Xopenex IH 1.25 mg [id number] BAKARI Administration Levalbuterol HCl 0.63 mg 06/01/17 12:42 06/11/17 23:56 Xopenex IH 0.63 mg [id number] PRN Administration Shortness of Breath Magnesium Oxide 400 mg 06/01/17 10:00 06/13/17 09:19 Mag-Ox PO 400 mg BID BAKARI Administration Methylprednisolone 40 mg 06/12/17 10:30 06/12/17 14:45 Solu-Medrol IVP 40 mg Q8H BAKARI Administration Metoprolol Tartrate 12.5 mg 06/01/17 22:00 06/13/17 09:09 Lopressor PO 12.5 mg Q12 BAKARI Administration Atomoxetine Hcl [ 60 mg 06/01/17 10:00 06/13/17 09:17 Strattera] 60 Mg PO Not Given DAILY BAKARI Nystatin 0 gm 06/09/17 11:30 06/12/17 14:34 Nystop Topical Powder TOP Not Given DAILY BAKARI Pantoprazole Sodium 40 mg 06/04/17 10:00 06/13/17 09:12 Protonix Ec Tab PO 40 mg DAILY BAKARI Administration Polyethylene Glycol 17 gm 06/06/17 10:00 06/13/17 09:12 Miralax PO 17 gm DAILY BAKARI Administration Sildenafil Citrate 20 mg 06/01/17 14:00 06/12/17 22:08 Revatio PO 20 mg Q8 BAKARI Administration Sodium Chloride 0 ml 06/08/17 16:37 [place] Nasal Banks NS TID PRN Nasal congestion Zolpidem Tartrate 5 mg 06/05/17 00:24 06/11/17 23:29 Ambien PO 5 mg HS PRN Administration Insomnia Protocol - Patient Studies Lab Studies: Lab Studies 06/13/17 06/13/17 06/13/17 Range/Units 10:00 10:00 07:22 WBC 18.2 H D (4.5-11.0) 10^3/ul RBC 3.15 L (3.5-6.1) 10^6/uL Hgb 9.9 L (14.0-18.0) g/dL Hct 29.0 L (42.0-52.0) % MCV 92.1 (80.0-105.0) fl MCH 31.4 (25.0-35.0) pg MCHC 34.1 (31.0-37.0) g/dl RDW 13.8 (11.5-14.5) % Plt Count 199 (120.0-450.0) 10^3/uL MPV 10.8 (7.0-11.0) fl Gran % 87.5 H (50.0-68.0) % Lymph % (Auto) 7.8 L (22.0-35.0) % Butts % (Auto) 4.6 (1.0-6.0) % Eos % (Auto) 0.0 L (1.5-5.0) % Baso % (Auto) 0.1 (0.0-3.0) % Gran # 15.90 H (1.4-6.5) Lymph # 1.4 (1.2-3.4) Butts # 0.8 H (0.1-0.6) Eos # 0.0 (0.0-0.7) Baso # 0.01 (0.0-2.0) K/mm3 Sodium 131 L (132-148) mmol/L Potassium 4.6 (3.6-5.0) mmol/L Chloride 93 L (98-107) mmol/L Carbon Dioxide 30 (21-33) mmol/L Anion Gap 13 (10-20) BUN 62 H (7-21) mg/dL Creatinine 1.9 H (0.8-1.5) mg/dl Est GFR ( Amer) 41 Est GFR (Non-Af Amer) 34 POC Glucose (mg/dL) 265 H (65-110) mg/dL Random Glucose 259 H (70-110) mg/dL Calcium 9.5 (8.4-10.5) mg/dL Phosphorus 5.4 H (2.5-4.5) mg/dL Magnesium 2.2 (1.7-2.2) mg/dL Total Bilirubin 0.8 (0.2-1.3) mg/dL AST 30 (17-59) U/L ALT 51 (7-56) U/L Alkaline Phosphatase 130 H (38-126) U/L NT-Pro-B Natriuret Pep 5110 H (0-450) pg/mL Total Protein 6.5 (5.8-8.3) g/dL Albumin 3.4 (3.0-4.8) g/dL Globulin 3.0 gm/dL Albumin/Globulin Ratio 1.1 (1.1-1.8) Procalcitonin (0.19-0.49) NG/ML Urine Color (YELLOW) Urine Appearance (CLEAR) Urine pH (4.7-8.0) Ur Specific [place] (1.005-1.035) Urine Protein (<30 mg/dL) mg/dL Urine Glucose (UA) (NEGATIVE) mg/dL Urine Ketones (NEGATIVE) mg/dL Urine Blood (NEGATIVE) Urine Nitrate (NEGATIVE) Urine Bilirubin (NEGATIVE) Urine Urobilinogen (<1 E.U./dL) E.U./dL Ur Leukocyte Esterase (NEGATIVE) Reyna/uL Urine RBC (0-2) /hpf Urine WBC (0-6) /hpf Ur Epithelial Cells (0-5) /hpf Amorphous Sediment Urine Bacteria (NEG) 06/12/17 06/12/17 06/12/17 Range/Units 21:49 16:45 14:40 WBC (4.5-11.0) 10^3/ul RBC (3.5-6.1) 10^6/uL Hgb (14.0-18.0) g/dL Hct (42.0-52.0) % MCV (80.0-105.0) fl MCH (25.0-35.0) pg MCHC (31.0-37.0) g/dl RDW (11.5-14.5) % Plt Count (120.0-450.0) 10^3/uL MPV (7.0-11.0) fl Gran % (50.0-68.0) % Lymph % (Auto) (22.0-35.0) % Butts % (Auto) (1.0-6.0) % Eos % (Auto) (1.5-5.0) % Baso % (Auto) (0.0-3.0) % Gran # (1.4-6.5) Lymph # (1.2-3.4) Butts # (0.1-0.6) Eos # (0.0-0.7) Baso # (0.0-2.0) K/mm3 Sodium (132-148) mmol/L Potassium (3.6-5.0) mmol/L Chloride (98-107) mmol/L Carbon Dioxide (21-33) mmol/L Anion Gap (10-20) BUN (7-21) mg/dL Creatinine (0.8-1.5) mg/dl Est GFR ( Amer) Est GFR (Non-Af Amer) POC Glucose (mg/dL) 334 H 350 H (65-110) mg/dL Random Glucose (70-110) mg/dL Calcium (8.4-10.5) mg/dL Phosphorus (2.5-4.5) mg/dL Magnesium (1.7-2.2) mg/dL Total Bilirubin (0.2-1.3) mg/dL AST (17-59) U/L ALT (7-56) U/L Alkaline Phosphatase (38-126) U/L NT-Pro-B Natriuret Pep (0-450) pg/mL Total Protein (5.8-8.3) g/dL Albumin (3.0-4.8) g/dL Globulin gm/dL Albumin/Globulin Ratio (1.1-1.8) Procalcitonin (0.19-0.49) NG/ML Urine Color Yellow (YELLOW) Urine Appearance Clear (CLEAR) Urine pH 5.5 (4.7-8.0) Ur Specific [place] 1.010 (1.005-1.035) Urine Protein Trace H (<30 mg/dL) mg/dL Urine Glucose (UA) 100 H (NEGATIVE) mg/dL Urine Ketones Negative (NEGATIVE) mg/dL Urine Blood Moderate H (NEGATIVE) Urine Nitrate Negative (NEGATIVE) Urine Bilirubin Negative (NEGATIVE) Urine Urobilinogen 0.2 (<1 E.U./dL) E.U./dL Ur Leukocyte Esterase Small H (NEGATIVE) Reyna/uL Urine RBC 15 - 20 (0-2) /hpf Urine WBC 5 - 10 (0-6) /hpf Ur Epithelial Cells 0 - 2 (0-5) /hpf Amorphous Sediment Few Urine Bacteria Many (NEG) 06/12/17 Range/Units 14:00 WBC (4.5-11.0) 10^3/ul RBC (3.5-6.1) 10^6/uL Hgb (14.0-18.0) g/dL Hct (42.0-52.0) % MCV (80.0-105.0) fl MCH (25.0-35.0) pg MCHC (31.0-37.0) g/dl RDW (11.5-14.5) % Plt Count (120.0-450.0) 10^3/uL MPV (7.0-11.0) fl Gran % (50.0-68.0) % Lymph % (Auto) (22.0-35.0) % Butts % (Auto) (1.0-6.0) % Eos % (Auto) (1.5-5.0) % Baso % (Auto) (0.0-3.0) % Gran # (1.4-6.5) Lymph # (1.2-3.4) Butts # (0.1-0.6) Eos # (0.0-0.7) Baso # (0.0-2.0) K/mm3 Sodium (132-148) mmol/L Potassium (3.6-5.0) mmol/L Chloride (98-107) mmol/L Carbon Dioxide (21-33) mmol/L Anion Gap (10-20) BUN (7-21) mg/dL Creatinine (0.8-1.5) mg/dl Est GFR ( Amer) Est GFR (Non-Af Amer) POC Glucose (mg/dL) (65-110) mg/dL Random Glucose (70-110) mg/dL Calcium (8.4-10.5) mg/dL Phosphorus (2.5-4.5) mg/dL Magnesium (1.7-2.2) mg/dL Total Bilirubin (0.2-1.3) mg/dL AST (17-59) U/L ALT (7-56) U/L Alkaline Phosphatase (38-126) U/L NT-Pro-B Natriuret Pep (0-450) pg/mL Total Protein (5.8-8.3) g/dL Albumin (3.0-4.8) g/dL Globulin gm/dL Albumin/Globulin Ratio (1.1-1.8) Procalcitonin 0.22 (0.19-0.49) NG/ML Urine Color (YELLOW) Urine Appearance (CLEAR) Urine pH (4.7-8.0) Ur Specific [place] (1.005-1.035) Urine Protein (<30 mg/dL) mg/dL Urine Glucose (UA) (NEGATIVE) mg/dL Urine Ketones (NEGATIVE) mg/dL Urine Blood (NEGATIVE) Urine Nitrate (NEGATIVE) Urine Bilirubin (NEGATIVE) Urine Urobilinogen (<1 E.U./dL) E.U./dL Ur Leukocyte Esterase (NEGATIVE) Reyna/uL Urine RBC (0-2) /hpf Urine WBC (0-6) /hpf Ur Epithelial Cells (0-5) /hpf Amorphous Sediment Urine Bacteria (NEG) Laboratory Results - last 24 hr 06/12/17 06/12/17 06/12/17 14:00 14:40 16:45 WBC RBC Hgb Hct MCV MCH MCHC RDW Plt Count MPV Gran % Lymph % (Auto) Butts % (Auto) Eos % (Auto) Baso % (Auto) Gran # Lymph # Butts # Eos # Baso # Sodium Potassium Chloride Carbon Dioxide Anion Gap BUN Creatinine Est GFR ( Amer) Est GFR (Non-Af Amer) POC Glucose (mg/dL) 350 H Random Glucose Calcium Phosphorus Magnesium Total Bilirubin AST ALT Alkaline Phosphatase NT-Pro-B Natriuret Pep Total Protein Albumin Globulin Albumin/Globulin Ratio Procalcitonin 0.22 Urine Color Yellow Urine Appearance Clear Urine pH 5.5 Ur Specific [place] 1.010 Urine Protein Trace H Urine Glucose (UA) 100 H Urine Ketones Negative Urine Blood Moderate H Urine Nitrate Negative Urine Bilirubin Negative Urine Urobilinogen 0.2 Ur Leukocyte Esterase Small H Urine RBC 15 - 20 Urine WBC 5 - 10 Ur Epithelial Cells 0 - 2 Amorphous Sediment Few Urine Bacteria Many 06/12/17 06/13/17 06/13/17 21:49 07:22 10:00 WBC 18.2 H D RBC 3.15 L Hgb 9.9 L Hct 29.0 L MCV 92.1 MCH 31.4 MCHC 34.1 RDW 13.8 Plt Count 199 MPV 10.8 Gran % 87.5 H Lymph % (Auto) 7.8 L Butts % (Auto) 4.6 Eos % (Auto) 0.0 L Baso % (Auto) 0.1 Gran # 15.90 H Lymph # 1.4 Butts # 0.8 H Eos # 0.0 Baso # 0.01 Sodium Potassium Chloride Carbon Dioxide Anion Gap BUN Creatinine Est GFR ( Amer) Est GFR (Non-Af Amer) POC Glucose (mg/dL) 334 H 265 H Random Glucose Calcium Phosphorus Magnesium Total Bilirubin AST ALT Alkaline Phosphatase NT-Pro-B Natriuret Pep Total Protein Albumin Globulin Albumin/Globulin Ratio Procalcitonin Urine Color Urine Appearance Urine pH Ur Specific [place] Urine Protein Urine Glucose (UA) Urine Ketones Urine Blood Urine Nitrate Urine Bilirubin Urine Urobilinogen Ur Leukocyte Esterase Urine RBC Urine WBC Ur Epithelial Cells Amorphous Sediment Urine Bacteria 06/13/17 10:00 WBC RBC Hgb Hct MCV MCH MCHC RDW Plt Count MPV Gran % Lymph % (Auto) Butts % (Auto) Eos % (Auto) Baso % (Auto) Gran # Lymph # Butts # Eos # Baso # Sodium 131 L Potassium 4.6 Chloride 93 L Carbon Dioxide 30 Anion Gap 13 BUN 62 H Creatinine 1.9 H Est GFR ( Amer) 41 Est GFR (Non-Af Amer) 34 POC Glucose (mg/dL) Random Glucose 259 H Calcium 9.5 Phosphorus 5.4 H Magnesium 2.2 Total Bilirubin 0.8 AST 30 ALT 51 Alkaline Phosphatase 130 H NT-Pro-B Natriuret Pep 5110 H Total Protein 6.5 Albumin 3.4 Globulin 3.0 Albumin/Globulin Ratio 1.1 Procalcitonin Urine Color Urine Appearance Urine pH Ur Specific [place] Urine Protein Urine Glucose (UA) Urine Ketones Urine Blood Urine Nitrate Urine Bilirubin Urine Urobilinogen Ur Leukocyte Esterase Urine RBC Urine WBC Ur Epithelial Cells Amorphous Sediment Urine Bacteria Critical Care Progress Note - Nutrition Nutrition: Nutrition Category Date Time Status Consistent Carbohydrate [DIET] Diets 06/03/17 Dinner Ordered Assessment/Plan - Assessment and Plan (Free Text) Plan: Patient seen and examined, on rounds with resident, agree with note with following additions/exceptions: 82 year old male PMHx severe pulmonary hypertension, hypertension, CAD, DM II, CHF s/p CABG and aortic valve replacement (bioprosthetic) transferred to 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 Currently awake, alert, NAD, off on 2LNC sat 95% , comfortable. Recommend: - cont with BIPAP as needed, 2LPM NC - Solumedrol 40mg Q8hr IV - Follow up Pulmonary - Milrinone - BP control, afterload reduction - Continue lipitor, lasix - Follow up cardiology - Cont with Revatio - GI ppx - DVT ppx - stable, transfer to telemetry
[2017-06-13] MEDS: Fluticasone Nasal 50 mcg/Spray NS SCH (11:24)
[2017-06-13] MEDS: Nystatin 100,000 Units/gm Topical Pow(15 gm) TOP SCH (11:25)
--- NOTE | 2017-06-13 11:54 | CP.PCM.PN ---
<Geraldo Paredes - Last Filed: 06/13/17 11:49> Subjective - Date & Time of Evaluation Date of Evaluation: 06/13/17 Time of Evaluation: 11:49 - Subjective Subjective: Podiatry Progress Note - Dr. Bates/Dr. Kendall 82 year old male patient seen and evaluated at bedside for 4th interdigit ulceration. Patient is seen resting comfortably in bed, in NAD, and AA0x3. Patient denies acute overnight events. Patient has no other pedal complaints at this time. Patient denies n/v/sob/cp/chills/f or d. Objective - Vital Signs/Intake and Output Vital Signs (last 24 hours): Temp Pulse Resp BP Pulse Ox 97.8 F 83 50 H 131/63 97 06/13/17 06:00 06/13/17 10:37 06/13/17 07:10 06/13/17 10:37 06/13/17 07:10 Intake and Output: 06/13/17 06/13/17 06:59 18:59 Intake Total 228 100 Output Total 210 Balance 18 100 - Medications Medications: Current Medications Atorvastatin Calcium (Lipitor) 40 mg PO DAILY [facility] Last Admin: 06/13/17 09:12 Dose: 40 mg Bupropion HCl (Wellbutrin) 75 mg PO BID [facility] Last Admin: 06/13/17 09:12 Dose: 75 mg Doxycycline Hyclate (Doryx) 100 mg PO Q12 [facility] PRN Reason: Protocol Stop: 06/22/17 22:01 Last Admin: 06/13/17 09:10 Dose: 100 mg Enoxaparin Sodium (Lovenox) 40 mg SC DAILY [facility] PRN Reason: Protocol Last Admin: 06/13/17 09:12 Dose: 40 mg Fluticasone Propionate (Flonase) 1 actuation NS DAILY [facility] Last Admin: 06/13/17 11:24 Dose: 1 spr Furosemide (Lasix) 40 mg IVP DAILY [facility] Last Admin: 06/13/17 08:36 Dose: 40 mg Gabapentin (Neurontin) 100 mg PO DAILY [facility] Last Admin: 06/13/17 09:11 Dose: 100 mg Home Med (Home Med) 1 unit PO DAILY [facility] Last Admin: 06/12/17 14:34 Dose: Not Given Milrinone Lactate/Dextrose (Primacor 20mg/100ml D5w) 100 mls @ 8.057 mls/hr IV .[id number] PRN; Protocol; 0.375 MCG/KG/MIN PRN Reason: TITRATE PER MD ORDER Last Admin: 06/13/17 10:37 Dose: 0.375 mcg/kg/min, 8.057 mls/hr Meropenem (Merrem Iv 1 Gm Premix) 50 mls @ 100 mls/hr IVPB Q12 [facility]ARI PRN Reason: Protocol Stop: 06/21/17 13:22 Last Admin: 06/13/17 09:19 Dose: Not Given Insulin Detemir (Levemir) 10 unit SC DAILY [facility] Last Admin: 06/13/17 09:14 Dose: 10 unit Insulin Human Regular (Humulin R Low) 0 units SC ACHS BAKARI PRN Reason: Protocol Last Admin: 06/13/17 08:38 Dose: 1 units Ipratropium [place] (Atrovent) 0.5 mg IH [id number] [facility] Last Admin: 06/13/17 07:46 Dose: 0.5 mg Levalbuterol HCl (Xopenex) 1.25 mg IH [id number] [facility] Last Admin: 06/13/17 07:46 Dose: 1.25 mg Levalbuterol HCl (Xopenex) 0.63 mg IH [id number] PRN PRN Reason: Shortness of Breath Last Admin: 06/11/17 23:56 Dose: 0.63 mg Magnesium Oxide (Mag-Ox) 400 mg PO BID [facility] Last Admin: 06/13/17 09:19 Dose: 400 mg Methylprednisolone (Solu-Medrol) 40 mg IVP Q8H [facility] Last Admin: 06/12/17 14:45 Dose: 40 mg Metoprolol Tartrate (Lopressor) 12.5 mg PO Q12 [facility] Last Admin: 06/13/17 09:09 Dose: 12.5 mg Atomoxetine Hcl [ (Strattera] 60 Mg) 60 mg PO DAILY [facility] Last Admin: 06/13/17 09:17 Dose: Not Given Nystatin (Nystop Topical Powder) 0 gm TOP DAILY [facility] Last Admin: 06/13/17 11:25 Dose: 1 units Pantoprazole Sodium (Protonix Ec Tab) 40 mg PO DAILY [facility] Last Admin: 06/13/17 09:12 Dose: 40 mg Polyethylene Glycol (Miralax) 17 gm PO DAILY [facility] Last Admin: 06/13/17 09:12 Dose: 17 gm Sildenafil Citrate (Revatio) 20 mg PO Q8 [facility] Last Admin: 06/12/17 22:08 Dose: 20 mg Sodium Chloride ([place] Nasal [place]) 0 ml NS TID PRN PRN Reason: Nasal congestion Zolpidem Tartrate (Ambien) 5 mg PO HS PRN; Protocol PRN Reason: Insomnia Last Admin: 06/11/17 23:29 Dose: 5 mg - Labs Labs: 06/13/17 10:00 06/13/17 10:00 PT 15.4 SECONDS (9.4-12.5) H 05/31/17 19:20 INR 1.40 (0.93-1.08) H 05/31/17 19:20 APTT 29.6 Seconds (25.1-36.5) 05/31/17 19:20 - Constitutional Appears: Well, Non-toxic, No Acute Distress - Extremities Exam Additional comments: VASC: DP pulses palpable 2/4 b/l. PT pulses nonpalpable secondary to edema. 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 +1 pitting edema noted to bilateral LE. DERM: Maceration noted to right 4th interspace, decreased since previous visit. Erythema noted to right 5th digit with small pinpoint ulceration on medial aspect of digit - no drainage, no purulence, no fluctuance, no ascending cellulitis. NEURO: Protective sensation grossly intact ORTHO: Mild pain on palpation of the 5th digit on the right foot. Pain upon ROM right foot 5th digit. - Neurological Exam Neurological Exam: Alert, Awake, Oriented x3 - Psychiatric Exam Psychiatric exam: Normal Affect, Normal Mood Assessment and Plan - Assessment and Plan (Free Text) Assessment: 82 year old male with ulceration to right 5th digit Plan: Patient seen and evaluated at bedside Discussed with attending, Dr. Kendall/Dr. Bates Vitals, labs, chart reviewed (Afebrile, WBC=18.2on 06/13/17) 4th interdigital ulceration is stable- no clinical signs of infection Continue local wound care - QD betadine without dressing Continue elevation for edema Podiatry will continue to follow patient while in house <Pablo Bates - Last Filed: 06/14/17 08:41> Objective - Vital Signs/Intake and Output Vital Signs (last 24 hours): Temp Pulse Resp BP Pulse Ox 98.3 F 90 24 152/73 H 97 06/14/17 06:00 06/14/17 07:00 06/14/17 07:00 06/14/17 08:33 06/14/17 07:00 Intake and Output: 06/14/17 06/14/17 06:59 18:59 Intake Total 316 Output Total 1100 Balance -784 - Medications Medications: Current Medications Atorvastatin Calcium (Lipitor) 40 mg PO DAILY [facility] Last Admin: 06/13/17 09:12 Dose: 40 mg Bupropion HCl (Wellbutrin) 75 mg PO BID [facility] Last Admin: 06/13/17 18:55 Dose: Not Given Doxycycline Hyclate (Doryx) 100 mg PO Q12 BAKARI PRN Reason: Protocol Stop: 06/22/17 22:01 Last Admin: 06/13/17 22:42 Dose: 100 mg Enoxaparin Sodium (Lovenox) 40 mg SC DAILY [facility] PRN Reason: Protocol Last Admin: 06/13/17 09:12 Dose: 40 mg Fluticasone Propionate (Flonase) 1 actuation NS DAILY [facility] Last Admin: 06/13/17 11:24 Dose: 1 spr Furosemide (Lasix) 40 mg IVP DAILY [facility] Last Admin: 06/14/17 08:33 Dose: 40 mg Gabapentin (Neurontin) 100 mg PO DAILY [facility] Last Admin: 06/13/17 09:11 Dose: 100 mg Home Med (Home Med) 1 unit PO DAILY [facility] Last Admin: 06/13/17 16:55 Dose: 1 unit Milrinone Lactate/Dextrose (Primacor 20mg/100ml D5w) 100 mls @ 8.057 mls/hr IV .[id number] PRN; Protocol; 0.375 MCG/KG/MIN PRN Reason: TITRATE PER MD ORDER Last Admin: 06/13/17 22:44 Dose: 0.375 mcg/kg/min, 8.057 mls/hr Meropenem 1 gm/ Sodium (Chloride) 100 mls @ 100 mls/hr IVPB Q12 BAKARI PRN Reason: Protocol Stop: 06/21/17 22:01 Last Admin: 06/13/17 22:39 Dose: 100 mls/hr Insulin Detemir (Levemir) 10 unit SC Q12 [facility] Last Admin: 06/13/17 22:43 Dose: Not Given Insulin Human Regular (Humulin R Med) 0 units SC ACHS [facility]I PRN Reason: Protocol Last Admin: 06/14/17 08:03 Dose: 5 units Ipratropium [place] (Atrovent) 0.5 mg IH [id number] [facility] Last Admin: 06/14/17 08:32 Dose: 0.5 mg Levalbuterol HCl (Xopenex) 1.25 mg IH [id number] [facility] Last Admin: 06/14/17 02:32 Dose: 1.25 mg Levalbuterol HCl (Xopenex) 0.63 mg IH [id number] PRN PRN Reason: Shortness of Breath Last Admin: 06/14/17 03:21 Dose: 0.63 mg Magnesium Oxide (Mag-Ox) 400 mg PO BID [facility] Last Admin: 06/13/17 17:47 Dose: 400 mg Methylprednisolone (Solu-Medrol) 30 mg IV Q8 [facility] Last Admin: 06/14/17 05:06 Dose: 30 mg Metoprolol Tartrate (Lopressor) 12.5 mg PO Q12 [facility] Last Admin: 06/13/17 22:42 Dose: 12.5 mg Atomoxetine Hcl [ (Strattera] 60 Mg) 60 mg PO DAILY [facility] Last Admin: 06/13/17 09:17 Dose: Not Given Nystatin (Nystop Topical Powder) 0 gm TOP DAILY [facility] Last Admin: 06/13/17 11:25 Dose: 1 units Pantoprazole Sodium (Protonix Ec Tab) 40 mg PO DAILY [facility] Last Admin: 06/13/17 09:12 Dose: 40 mg Polyethylene Glycol (Miralax) 17 gm PO DAILY [facility] Last Admin: 06/13/17 09:12 Dose: 17 gm Sildenafil Citrate (Revatio) 20 mg PO Q8 [facility] Last Admin: 06/14/17 05:06 Dose: 20 mg Sodium Chloride ([place] Nasal [place]) 0 ml NS TID PRN PRN Reason: Nasal congestion Zolpidem Tartrate (Ambien) 5 mg PO HS PRN; Protocol PRN Reason: Insomnia Last Admin: 06/11/17 23:29 Dose: 5 mg - Labs Labs: 06/13/17 10:00 06/13/17 10:00 PT 15.4 SECONDS (9.4-12.5) H 05/31/17 19:20 INR 1.40 (0.93-1.08) H 05/31/17 19:20 APTT 29.6 Seconds (25.1-36.5) 05/31/17 19:20 Attending/Attestation - Attestation I have personally seen and examined this patient.: Yes I have fully participated in the care of the patient.: Yes I have reviewed all pertinent clinical information, including history, physical exam and plan: Yes
--- NOTE | 2017-06-13 13:08 | PN ---
DATE OF SERVICE: 06/13/2017 SUBJECTIVE: The patient is seen earlier this morning in room #128, bed #2. No fever and no chills. PHYSICAL EXAMINATION: VITAL SIGNS: Temperature is 98, blood pressure is 119/60, respiratory rate of 24, heart rate of 91. HEENT: Unremarkable. NECK: Supple. LUNGS: Have decreased breath sounds. HEART: Normal S1 and S2. ABDOMEN: Soft, nontender. LABORATORY DATA: Examination reveals a white count of 6.4, hemoglobin of 10, platelets of 183, BUN of 35, creatinine of 1.3, AST is 43, ALT is 58, alkaline phosphatase is 159. Urinalysis is noted. ASSESSMENT AND PLAN: This is an 82-year-old male who was seen earlier this morning in room #128, bed #2, slightly less short of breath than yesterday, with a history of coronary artery disease, cerebrovascular accident, asthma, congestive heart failure, endocarditis, prostate cancer, peripheral neuropathy, hypertension, and on this admission, the patient is now admitted in the hospital, developed tachycardia, dyspnea, hypoxia, and a new infiltrate. Severe sepsis secondary to hospital-acquired healthcare-associated pneumonia with acute diastolic congestive heart failure on top of chronic congestive heart failure, waiting for blood cultures, urine cultures, sputum culture, MRSA screen. The patient is on day #2 of doxycycline and meropenem, and the patient's procalcitonin is 0.22 which speaks against bacterial pneumonia. The patient does have an elevated alkaline phosphatase and had an ultrasound of the abdomen with a common bile duct measurement of 3.8. There is cholelithiasis. No evidence of acute pathology in the gallbladder. Segun Cavaozs MD
[2017-06-13] MEDS: Sildenafil 20 MG TAB PO SCH ×3 (14:00→22:42)
--- NOTE | 2017-06-13 14:19 | PN ---
DATE: REASON FOR THE CONSULTATION: Cardiac evaluation, pulmonary hypertension, CAD, one-vessel CABG, status post aortic valve replacement, bioprosthetic aortic valve repair, respiratory distress, moved to, yesterday, ICU. SUBJECTIVE: The patient denies any chest pain. Denies shortness or breath or any palpitation. On IV Primacor and CPAP. OBJECTIVE: GENERAL: Not in distress. Anxious to go home. Lying comfortable. VITAL SIGNS: Temperature afebrile, heart rate 82, blood pressure 122/61. HEENT: PERRLA. Extraocular muscles intact. NECK: Supple. No carotid bruits or thyromegaly. CHEST: Clear to auscultation. HEART: S1 and S2, regular. ABDOMEN: Soft. EXTREMITIES: Clubbing and cyanosis negative. LABORATORY DATA: Blood workup as follows: WBC 6.5, hemoglobin 10.4, hematocrit 31.3, platelet count 183. Chemistry shows sodium 129, potassium 4.8, chloride 93, carbon dioxide 29, anion gap of 12, BUN 35, and creatinine 1.3. IMPRESSION: An 82-year-old male with past medical history significant for aortic stenosis, coronary artery disease, mitral valve repair, status post aortic valve repair, bioprosthetic, for severe aortic stenosis, one-vessel coronary artery bypass graft, status post mitral valve repair, severe pulmonary hypertension. Most recently, the patient has a noninvasive right ventricular systolic pressure by echocardiogram, reported 151, so the patient underwent right heart catheterization that revealed pulmonary artery pressure of 103. The patient was on Primacor. Pulmonary vascular resistance was 10.6 unit while the patient was off Dobutrex for 12 hours. Right atrium 18 to 20, right ventricle 103/25, pulmonary artery pressure of 103/48, mean pulmonary artery 65. Pulmonary capillary wedge pressure 30 to 32. Cardiac output 3.1 L, pulmonary vascular resistance 10.6 Wood unit dated 06/02/2017. Last echocardiogram dated 05/06/2017 shows as mentioned right ventricular systolic pressure of 151, preserved left ventricular function, mild to moderate aortic regurgitation consistent with severe pulmonary hypertension. Ejection fraction calculated at 65%. He was admitted with shortness of breath, being treated on floor for pulmonary hypertension. Yesterday, the patient had rapid response because of shortness of breath, moved to intensive care unit. Again, the Lasix and Primacor were continued. Initially, it looks like the patient needs to be , but later on managed successfully with bilevel positive airway pressure. Last night, Dr. Booker called around 9 o'clock and concerned that patient had left heart failure and was discussing about the catheterization finding of right heart, and the question where the wedge pressure was elevated when it was a right heart catheterization as well as wanted to know whether the patient can go high doses of milrinone to get the benefit for congestive heart failure. Answer to these questions to both Dr. Bustos and Dr. Booker that patient needs aggressive treatment for pulmonary hypertension. Essentially, it is a right heart failure and pulmonary hypertension, ejection fraction is well preserved at 55%, so the patient will not get benefit at maximized dose of vasopressors or Primacor. The patient is already on 0.375 which is the optimum dose. We will not suggest to increase the dose #1, #2. Definitely, the patient needs p.r.n. Lasix because the right heart failure also transmits to the left heart failure. Eventually, the patient needs treatment with prostacyclin or inhibitors or bosentan antagonist or endothelin antagonist, but at this time, I point, I did not see any significant aggressive treatment for left heart failure, though the patient's pulmonary occlusive wedge pressure is around 30 because of the severely elevated right-sided pressure which is pushing the intraventricular septum and causing the left heart failure, but it is primarily right heart failure. We will try to discuss with Dr. Bustos and Dr. Booker. In the interim, continue Primacor 0.35, no need to increase, continue Lasix p.r.n. Yesterday, we gave the Lasix a night before. We will give an extra dose of little Lasix. I will keep the patient dry as I mentioned in my previous note to keep the negative fluid balance. Guru Sosa MD
[2017-06-13] MEDS: MethylPREDNISolone 40 mg Vial IVP SCH (16:51)
[2017-06-13] MEDS: LETAIRIS 5 MG PO SCH (16:55)
--- NOTE | 2017-06-13 19:40 | PN ---
DATE: 06/13/2017 SUBJECTIVE: This patient was seen and evaluated earlier today. Patient on nasal cannula, feeling slightly better. PHYSICAL EXAMINATION VITAL SIGNS: Temperature 98.6, blood pressure 119/62, pulse 90. HEENT: Atraumatic. Anicteric. NECK: Supple. HEART: S1, S2. LUNGS: Slightly reduced basilar air entry present. ABDOMEN: Soft, no tenderness. LABORATORY DATA: White cell count is elevated to 18.2, hemoglobin 9.9, hematocrit 29, platelets 199. Chemistry shows alkaline phosphatase 130, total bilirubin is only 0.8. IMPRESSION: This 82-year-old patient with severe pulmonary hypertension, valvular disease, has gallstones, elevated liver function tests, probably secondary to hepatic congestion is improving. Patient has increased shortness of breath, pleural effusion, possible pneumonia and lung infiltrate/consolidation. PLAN: Continue the antibiotics as per ID. Followup of the LFTs. Thank you very much for allowing us to participate in the care of the patient. Karly Fraser MD MTDHaleigh
[2017-06-13] MEDS ORDERED: MethylPREDNISolone 40 mg Vial IVP SCH (22:00)
[2017-06-13] MEDS: Insulin Reg-MEDIUM-Coverage SC SCH (22:39)
[2017-06-13] MEDS: Meropenem 1 GM in Sodium Chloride 0.9% 100 ML IVPB SCH (22:39)
[2017-06-13] MEDS: MethylPREDNISolone 40 mg Vial IV SCH (22:42)
--- NOTE | 2017-06-13 22:44 | PN ---
PULMONARY PROGRESS NOTE DATE: 06/13/2017 REFERRING PHYSICIAN: Arya Booker MD SUBJECTIVE: The patient is lying in the bed, head at 45 degrees, in Intensive Care Unit, and complaining about shortness of breath, tachypnea, and tachycardia. No cough. No sputum production. No nausea. No vomiting, diarrhea, leg pain or leg swelling. OBJECTIVE: GENERAL: In no acute distress. VITAL SIGNS: Temperature is 98, heart rate is 87, respiratory rate is 20 to 30, blood pressure is 119/62, and pulse ox was 96% on nasal cannula. HEENT: Moist mucous membranes. Crowded airway. Mallampati score is IV. NECK: Supple. No JVD. LUNGS: Has a few crackles. HEART: S1 and S2. ABDOMEN: Soft and nontender. No organomegaly. EXTREMITIES: No edema. NEUROLOGIC: Awake, alert, and follow simple commands. MEDICATIONS: He is on Ambien 5 mg at bedtime for insomnia, Atrovent inhaled q.6 hours, doxycycline 100 mg twice a day, Flonase one spray each nostril daily, Lasix 40 mg daily, Levemir 10 units subcutaneously q.12 hours, Lipitor 40 mg daily, metoprolol tartrate 12.5 mg twice a day, Lovenox 40 mg daily, magnesium oxide 400 mg twice a day, meropenem 1 g IV q.12 hours, MiraLax 17 g daily, Neurontin 100 mg daily, nasal saline 2 sprays each nostril q.8 hours, Primacor IV drip, Protonix 40 mg daily, Revatio 20 mg q.8 hours, Solu-Medrol 20 mg q.8 hours, Wellbutrin 75 mg twice a day, and Xopenex 1.25 mg q.6 hours. LABORATORY DATA: Shows hemoglobin 9.9, hematocrit 29.0, WBC 18.2, and platelet count is 199. Sodium 131, potassium 4.6, chloride 93, bicarbonate 30, BUN 62, creatinine 1.9, glucose 259, calcium 9.5, phosphorus 5.4, magnesium 2.2, AST 30, ALT 51, alk phos is 130, proBNP 5110, and albumin is 3.4. Microbiology; blood culture and urine culture is no growth. Chest x-ray done this morning shows significant improvement in bilateral vascular interstitial congestion. IMPRESSION AND PLAN: Severe pulmonary hypertension, left heart cardiomyopathy, valvular heart disease, and diabetes. Case discussed with Dr. Booker, spoke to medical claims representative and nursing staff. Requested to place the patient on BiPAP and give Lasix 40 mg IV one dose. Apparently, the sample I brought in for Letairis is not being used because hospital policy does not let the patient used the samples?, Dr. Booker written the prescription for Letairis and Orenitram starting 0.25 mg dose and increase according to schedule. Follow up labs in the morning. Critical care time more than 35 minutes. Thank you and we will follow with you. Guru Bustos MD
--- NOTE | 2017-06-14 02:09 | PN ---
DATE: 06/13/2017 SUBJECTIVE: The patient seems no distress. He is comfortable. Saturating 97% on 4 L nasal cannula. PHYSICAL EXAMINATION: As follows: VITAL SIGNS: Temperature is 98.6, heart rate 83 and blood pressure 131/63. HEAD AND NECK: Normal. No JVD. CHEST: Clear in the upper quadrant and diminished breath sounds in the lower. ABDOMEN: Soft and nontender. EXTREMITIES: No edema. NEUROLOGIC: The patient is alert, awake and oriented x3. Doing well. LABORATORY DATA: His chest x-ray today shows there was a significant improvement in bilateral vascular interstitial congestion. White count 18.2, hemoglobin 9.9, hematocrit 29 and platelets 199. Chemistry: Sodium 131, potassium 4.6, chloride 93, bicarb 30, BUN 62, creatinine 1.9, blood sugar also 259, phosphorus 5.4 and calcium 9.5. AST and ALT is normal. Alkaline phosphatase 130. ProBNP is 5000. IMPRESSION: 1. Acute congestive heart failure. Chest x-ray is improving. The patient is clinically better. Continue oxygen. Continue diuretics. Monitor his electrolytes and his renal functions. We will discuss with Dr. Sosa and discuss with Dr. Bustos. 2. 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 We will reduce steroids IV to every 8 hours and decrease it 30 mg and also we will increase the insulin coverage Lantus to twice a day plus medium scale coverage for insulin. 3. Acute renal injury probably combination of diuresis plus worsening congestive heart failure. It is a prerenal in etiology. We will monitor. Renal consult has been ordered. Repeat labs in the morning. 4. Severe pulmonary hypertension. The patient is getting Revatio, getting oxygen, getting continuous positive airway pressure machine, which help his pulmonary hypertension in addition to Letairis 5 mg daily. Also other medications has been ordered and information faxed to the pharmacy again with prescriptions and we will follow up of that and was ordered as a stat and we will follow up on that. I discussed with Dr. Bustos about that. I discussed with the inpatient pharmacy about that and will keep eye on that. All information is being faxed again and all prescriptions has been written and ordered again with confirmation numbers confirmed from the hospital and from my home office. I will continue monitor that and continue therapy. 5. Depression, anxiety. Continue Strattera, Ambien and continue Wellbutrin. PLAN: 1. Continue current therapy. 2. COPD. Continue steroids tapering it down. 3. Continue inhaled bronchodilators. We will continue to followup on the case. Arya Booker MD
--- NOTE | 2017-06-14 02:17 | PN ---
DATE: 06/12/2017 SUBJECTIVE: Patient is in the unit. He is on 5 L nasal cannula, BiPAP at night. Patient is stable clinically, comfortable, no distress, saturating 93%, heart rate in the 90s. Feeling better. next to the bedside and other visitors, relatives at bedside. Patient otherwise seems comfortable, talking to me, alert, awake and oriented x3. PHYSICAL EXAMINATION VITAL SIGNS: As follows; temperature is 98.1, heart rate 94, blood pressure 126/66, respirations 25, saturating 96% on 4 L nasal cannula. HEAD AND NECK: Normal. No JVD. No thyromegaly. CHEST: Clear. Diminished breath sounds at the bases. CARDIAC: First sound and second sound normal. Systolic murmur across the precordium. ABDOMEN: Soft and nontender. EXTREMITIES: No edema. NEUROLOGIC: Normal. LABORATORY STUDY: White count 6.4, hemoglobin 10.4, hematocrit 31.3. Chemistry as follows; sodium 129, potassium 4.8, chloride 93, bicarbonate 29, BUN 35, creatinine 1.3, glomerular filtration rate more than 60, blood sugar 179. AST 43 and ALT 58, otherwise, negative. His CBC is as follows on 06/12/2017; white count 6.4, hemoglobin 10.4, hematocrit 31.3, platelets are 183. Patient had blood cultures x2 which came back negative and urine culture was negative. Patient also had abdominal ultrasound, portal vein is patent, unremarkable echogenicity of the liver, parenchyma, cholelithiasis, but negative wall thickening or pericholecystic fluid was negative. IMPRESSION AND PLAN: 1. Acute congestive heart failure, combined right-sided and left-sided heart failure with bilateral pleural effusions in a patient to his underlying chronic obstructive pulmonary disease, possible nosocomial pneumonia. At this time, we will continue IV therapy, IV Lasix daily basis, oxygen therapy, inhaled bronchodilator. Patient already on Solu-Medrol, seems doing well. We will taper the steroids gradually. At this time, continue current therapy, continue BiPAP at night. Regarding his severe pulmonary hypertension, patient has Letairis 5 mg daily is given and still getting on the other drug for approval. We will give a call to the pharmacy and pharmacy medical office supervisor and the head of the pharmacy Marissa. I discussed with her in length. We will follow up next day on that. Discussed with the son, Dr. Arboleda, his son about the patient's condition. 2. Diabetes, insulin dependent. Blood sugar is going up secondary to steroids, stress. Continue insulin coverage. We will monitor. Plan is to increase his insulin if it continues to rise up. Also, we will decrease the steroids gradually. 3. Patient had coronary artery disease, has good systolic function, probably more of diastolic heart failure, elevated end-diastolic pressure, raising the wedge pressure and making pulmonary hypertension also worse or the medication for pulmonary hypertension increase the flow to the left side, which will make it more fluid going to the left, however, either case we will continue to monitor gradually and monitor his input and output and we will follow up clinically. 4. Patient does have insomnia, depression. Continue Strattera, Ambien, Zoloft, and Wellbutrin. We will continue current therapy. Patient is also getting beta blockers, Lovenox for DVT prophylaxis and also Protonix, cholesterol medicine Lipitor and Flonase. Continue current therapy and we will follow up clinically. Patient is also getting meropenem and doxycycline. Continue current therapy. We will follow up clinically. His urine output total intake was on 06/12/2017, intake total 928 and output was 445, and we will monitor his positive . We will continue to monitor his fluid status. Arya Booker MD
[2017-06-14] MEDS: Ipratropium 0.02% Inhal Soln (0.5 mg/2.5 ml) UD IH SCH ×4 (02:32→19:23)
[2017-06-14] MEDS: Levalbuterol 1.25 MG/3 ML Inhal Soln UD IH SCH ×5 (02:32→19:35)
[2017-06-14] MEDS: Levalbuterol 0.63 MG/3 ML Inhal Soln UD IH PRN ×3 (03:21→19:33)
[2017-06-14] MEDS ORDERED: MethylPREDNISolone 40 mg Vial ONE (03:36)
[2017-06-14] MEDS: MethylPREDNISolone 40 mg Vial IV SCH ×4 (05:06→22:58)
[2017-06-14] MEDS: Sildenafil 20 MG TAB PO SCH ×3 (05:06→22:57)
[2017-06-14] MEDS: Insulin Reg-MEDIUM-Coverage SC SCH ×4 (08:03→22:36)
[2017-06-14] MEDS: Meropenem 1 GM in Sodium Chloride 0.9% 100 ML IVPB SCH (09:41)
--- NOTE | 2017-06-14 09:54 | CP.PCM.PN ---
<Geraldo Paredes - Last Filed: 06/14/17 09:52> Subjective - Date & Time of Evaluation Date of Evaluation: 06/14/17 Time of Evaluation: 09:52 - Subjective Subjective: Podiatry Progress Note - Dr. Bates/Dr. Kendall 82 year old male patient seen and evaluated at bedside for 4th interdigit ulceration. Patient is seen resting comfortably in bed, in NAD, and AA0x3. Patient denies acute overnight events. Patient has no other pedal complaints at this time. Patient denies n/v/sob/cp/chills/f or d. Objective - Vital Signs/Intake and Output Vital Signs (last 24 hours): Temp Pulse Resp BP Pulse Ox 98.3 F 90 24 152/73 H 97 06/14/17 06:00 06/14/17 07:00 06/14/17 07:00 06/14/17 08:33 06/14/17 07:00 Intake and Output: 06/14/17 06/14/17 06:59 18:59 Intake Total 316 Output Total 1100 Balance -784 - Medications Medications: Current Medications Atorvastatin Calcium (Lipitor) 40 mg PO DAILY [facility] Last Admin: 06/13/17 09:12 Dose: 40 mg Bupropion HCl (Wellbutrin) 75 mg PO BID [facility] Last Admin: 06/13/17 18:55 Dose: Not Given Doxycycline Hyclate (Doryx) 100 mg PO Q12 [facility] PRN Reason: Protocol Stop: 06/22/17 22:01 Last Admin: 06/13/17 22:42 Dose: 100 mg Enoxaparin Sodium (Lovenox) 40 mg SC DAILY [facility] PRN Reason: Protocol Last Admin: 06/13/17 09:12 Dose: 40 mg Fluticasone Propionate (Flonase) 1 actuation NS DAILY [facility] Last Admin: 06/13/17 11:24 Dose: 1 spr Furosemide (Lasix) 40 mg IVP DAILY [facility] Last Admin: 06/14/17 08:33 Dose: 40 mg Gabapentin (Neurontin) 100 mg PO DAILY [facility] Last Admin: 06/13/17 09:11 Dose: 100 mg Home Med (Home Med) 1 unit PO DAILY [facility] Last Admin: 06/13/17 16:55 Dose: 1 unit Milrinone Lactate/Dextrose (Primacor 20mg/100ml D5w) 100 mls @ 8.057 mls/hr IV .[id number] PRN; Protocol; 0.375 MCG/KG/MIN PRN Reason: TITRATE PER MD ORDER Last Admin: 06/13/17 22:44 Dose: 0.375 mcg/kg/min, 8.057 mls/hr Meropenem 1 gm/ Sodium (Chloride) 100 mls @ 100 mls/hr IVPB Q12 [facility] PRN Reason: Protocol Stop: 06/21/17 22:01 Last Admin: 06/14/17 09:41 Dose: 100 mls/hr Insulin Detemir (Levemir) 10 unit SC Q12 [facility] Last Admin: 06/13/17 22:43 Dose: Not Given Insulin Human Regular (Humulin R Med) 0 units SC ACHS [facility] PRN Reason: Protocol Last Admin: 06/14/17 08:03 Dose: 5 units Ipratropium [place] (Atrovent) 0.5 mg IH [id number] [facility] Last Admin: 06/14/17 08:32 Dose: 0.5 mg Levalbuterol HCl (Xopenex) 1.25 mg IH [id number] [facility] Last Admin: 06/14/17 08:48 Dose: 1.25 mg Levalbuterol HCl (Xopenex) 0.63 mg IH [id number] PRN PRN Reason: Shortness of Breath Last Admin: 06/14/17 03:21 Dose: 0.63 mg Magnesium Oxide (Mag-Ox) 400 mg PO BID [facility] Last Admin: 06/13/17 17:47 Dose: 400 mg Methylprednisolone (Solu-Medrol) 30 mg IV Q8 [facility] Last Admin: 06/14/17 05:06 Dose: 30 mg Metoprolol Tartrate (Lopressor) 12.5 mg PO Q12 [facility] Last Admin: 06/13/17 22:42 Dose: 12.5 mg Atomoxetine Hcl [ (Strattera] 60 Mg) 60 mg PO DAILY [facility] Last Admin: 06/13/17 09:17 Dose: Not Given Nystatin (Nystop Topical Powder) 0 gm TOP DAILY [facility] Last Admin: 06/13/17 11:25 Dose: 1 units Pantoprazole Sodium (Protonix Ec Tab) 40 mg PO DAILY [facility] Last Admin: 06/13/17 09:12 Dose: 40 mg Polyethylene Glycol (Miralax) 17 gm PO DAILY [facility] Last Admin: 06/13/17 09:12 Dose: 17 gm Sildenafil Citrate (Revatio) 20 mg PO Q8 [facility] Last Admin: 06/14/17 05:06 Dose: 20 mg Sodium Chloride ([place] Nasal [place]) 0 ml NS TID PRN PRN Reason: Nasal congestion Zolpidem Tartrate (Ambien) 5 mg PO HS PRN; Protocol PRN Reason: Insomnia Last Admin: 06/11/17 23:29 Dose: 5 mg - Labs Labs: 06/13/17 10:00 06/13/17 10:00 PT 15.4 SECONDS (9.4-12.5) H 05/31/17 19:20 INR 1.40 (0.93-1.08) H 05/31/17 19:20 APTT 29.6 Seconds (25.1-36.5) 05/31/17 19:20 - Constitutional Appears: Well, Non-toxic, No Acute Distress - Extremities Exam Additional comments: VASC: DP pulses palpable 2/4 b/l. PT pulses nonpalpable secondary to edema. AGENCY DIRECTOR : < 3 sec to all digits, TG: warm to cool from proximal to distal. +1 pitting edema noted to bilateral LE. DERM: Very mild maceration noted to right 4th interspace, decreased since previous visit. Erythema noted to right 5th digit with small pinpoint ulceration on medial aspect of digit - no drainage, no purulence, no fluctuance , no ascending cellulitis, no probe to bone NEURO: Protective sensation grossly intact ORTHO: Mild pain on palpation of the 5th digit on the right foot. Pain upon ROM right foot 5th digit. - Neurological Exam Neurological Exam: Alert, Awake, Oriented x3 Assessment and Plan - Assessment and Plan (Free Text) Assessment: 82 year old male with ulceration to right 5th digit Plan: Patient seen and evaluated at bedside Discussed with attending, Dr. Kendall/Dr. Bates Vitals, labs, chart reviewed (Afebrile, WBC=18.2on 06/13/17) 4th interdigital ulceration is stable- no clinical signs of infection Continue local wound care - QD betadine without dressing Continue elevation for edema Podiatry will continue to follow patient while in house <Pablo Bates - Last Filed: 06/17/17 10:51> Objective - Vital Signs/Intake and Output Vital Signs (last 24 hours): Temp Pulse Resp BP Pulse Ox 97.5 F L 85 26 H 107/40 L 92 L 06/17/17 08:00 06/17/17 10:00 06/17/17 10:00 06/17/17 10:00 06/17/17 10:00 Intake and Output: 06/17/17 06/17/17 06:59 18:59 Intake Total 90 Output Total 500 Balance -410 - Medications Medications: Current Medications Alprazolam (Xanax) 0.25 mg PO BID PRN; Protocol PRN Reason: Anxiety Stop: 06/22/17 18:01 Last Admin: 06/16/17 21:11 Dose: 0.25 mg Atorvastatin Calcium (Lipitor) 40 mg PO DAILY [facility] Last Admin: 06/17/17 09:21 Dose: 40 mg Bupropion HCl (Wellbutrin) 75 mg PO BID [facility] Last Admin: 06/17/17 09:21 Dose: 75 mg Enoxaparin Sodium (Lovenox) 30 mg SC DAILY [facility] PRN Reason: Protocol Last Admin: 06/17/17 09:23 Dose: 30 mg Fluticasone Propionate (Flonase) 1 actuation NS DAILY [facility] Last Admin: 06/17/17 09:23 Dose: 1 spr Gabapentin (Neurontin) 100 mg PO DAILY [facility] Last Admin: 06/17/17 09:22 Dose: 100 mg Home Med (Home Med) 1 unit PO DAILY [facility] Last Admin: 06/17/17 09:24 Dose: 1 unit Milrinone Lactate/Dextrose (Primacor 20mg/100ml D5w) 100 mls @ 4.297 mls/hr IV .[id number] PRN; Protocol; 0.2 MCG/KG/MIN PRN Reason: TITRATE PER MD ORDER Last Admin: 06/17/17 02:07 Dose: 0.2 mcg/kg/min, 4.297 mls/hr Insulin Detemir (Levemir) 20 unit SC HS [facility] Last Admin: 06/16/17 22:36 Dose: Not Given Insulin Human Lispro (Humalog Low) 0 units SC ACHS [facility] PRN Reason: Protocol Last Admin: 06/17/17 08:09 Dose: Not Given Insulin Human Lispro (Humalog) 6 units SC AC [facility] Last Admin: 06/17/17 08:12 Dose: 6 units Ipratropium [place] (Atrovent) 0.5 mg IH [id number] [facility] Last Admin: 06/17/17 08:32 Dose: 0.5 mg Levalbuterol HCl (Xopenex) 1.25 mg IH [id number] [facility] Last Admin: 06/17/17 08:32 Dose: 1.25 mg Levalbuterol HCl (Xopenex) 0.63 mg IH [id number] PRN PRN Reason: Shortness of Breath Last Admin: 06/15/17 15:07 Dose: 0.63 mg Methylprednisolone (Solu-Medrol) 20 mg IVP Q12 [facility] Last Admin: 06/17/17 09:22 Dose: 20 mg Atomoxetine Hcl [ (Strattera] 60 Mg) 60 mg PO DAILY [facility] Last Admin: 06/17/17 10:13 Dose: Not Given Nystatin (Nystop Topical Powder) 0 gm TOP DAILY [facility] Last Admin: 06/17/17 09:24 Dose: 1 units Pantoprazole Sodium (Protonix Ec Tab) 40 mg PO DAILY [facility] Last Admin: 06/17/17 09:21 Dose: 40 mg Polyethylene Glycol (Miralax) 17 gm PO DAILY [facility] Last Admin: 06/17/17 09:23 Dose: 17 gm Sevelamer HCl (Renagel) 1,600 mg PO TID [facility] Last Admin: 06/17/17 09:22 Dose: 1,600 mg Sildenafil Citrate (Revatio) 20 mg PO Q8 [facility] Last Admin: 06/17/17 06:28 Dose: 20 mg Sodium Chloride ([place] Nasal [place]) 0 ml NS TID PRN PRN Reason: Nasal congestion Zolpidem Tartrate (Ambien) 5 mg PO HS PRN; Protocol PRN Reason: Insomnia Last Admin: 06/16/17 23:05 Dose: 5 mg - Labs Labs: 06/17/17 06:20 06/17/17 06:20 PT 15.4 SECONDS (9.4-12.5) H 05/31/17 19:20 INR 1.40 (0.93-1.08) H 05/31/17 19:20 APTT 29.6 Seconds (25.1-36.5) 05/31/17 19:20 Attending/Attestation - Attestation I have personally seen and examined this patient.: Yes I have fully participated in the care of the patient.: Yes I have reviewed all pertinent clinical information, including history, physical exam and plan: Yes
[2017-06-14] MEDS: Magnesium Oxide 400 mg Tab UD PO SCH ×2 (10:33→17:04)
[2017-06-14] MEDS: Pantoprazole 40 mg EC Tab PO SCH (10:34)
--- NOTE | 2017-06-14 10:34 | PN ---
DATE: 06/14/2017 SUBJECTIVE: The patient is on positive pressure mask. He still complains of dyspnea, which is chronic. Blood pressure 152/73, heart rate is in the 90s. OBJECTIVE: NECK: Negative JVD. LUNGS: Decreased breath sounds bilaterally. HEART: Reveals S1, S2. EXTREMITIES: Without edema. LABORATORY DATA: White count yesterday was up to 18.2, hemoglobin is 9.9, BUN and creatinine 62 and 1.9. IMPRESSION: 1. Status post aortic and mitral valve replacement. 2. Severe pulmonary hypertension. 3. Chronic dyspnea. 4. Prerenal azotemia. Given these findings, I have discussed with Dr. Peñaloza, the shear assembler, about adjustments of his medications for his pulmonary hypertension. The patient is not left heart failure. Santos Hurley MD
[2017-06-14] MEDS: POLYETHYLENE GLYCOL 3350 17 GM/Dose PACKET PO SCH (10:35)
[2017-06-14] MEDS: Enoxaparin 40 mg Syringe SC SCH (10:35)
[2017-06-14] MEDS: Nystatin 100,000 Units/gm Topical Pow(15 gm) TOP SCH (10:36)
[2017-06-14] MEDS: Insulin Detemir 100 units/ml Vial (Levemir) SC SCH (10:37)
[2017-06-14] MEDS: Fluticasone Nasal 50 mcg/Spray NS SCH (10:38)
[2017-06-14] MEDS: LETAIRIS 5 MG PO SCH (10:38)
[2017-06-14 10:41] LABS: BASO # 0.01 K/mm3 (0.0-2.0); BASO % 0.1 % (0.0-3.0); GRAN # 12.62 (1.4-6.5); GRAN % 96.2 % (50.0-68.0); HEMOGLOBIN 10.7 g/dL (14.0-18.0); LYMPH # 0.3 (1.2-3.4); LYMPH % 2.3 % (22.0-35.0); MEAN CELL VOLUME 92.5 fl (80.0-105.0); MEAN CORPUSCULAR HEMOGLOBIN 31.9 pg (25.0-35.0); MEAN CORPUSCULAR HGB CONC 34.5 g/dl (31.0-37.0); MEAN PLATELET VOLUME 11.7 fl (7.0-11.0); MONO # 0.2 (0.1-0.6); MONO % 1.4 % (1.0-6.0); RBC 3.35 10^6/uL (3.5-6.1); RED CELL DISTRIBUTION WIDTH 13.8 % (11.5-14.5); WHITE BLOOD COUNT 13.1 10^3/ul (4.5-11.0)
[2017-06-14 10:58] LABS: ALB/GLOB RATIO 1.2 (1.1-1.8); ALBUMIN 3.3 g/dL (3.0-4.8); CALCIUM 9.4 mg/dL (8.4-10.5); MAGNESIUM 2.2 mg/dL (1.7-2.2)
[2017-06-14] MEDS: Milrinone 20mg/100ml D5W 100 ML IV PRN ×2 (11:15→23:00)
--- NOTE | 2017-06-14 11:38 | RAD ---
HISTORY: SOB COMPARISON: Comparison chest 06/13/2017 and CTA chest dated 06/11/2017. FINDINGS: LUNGS: Re- demonstrated are layering bilateral effusions and bibasilar atelectasis, left larger than right. Increased interstitial markings which is felt to be secondary to mild mild interstitial pulmonary edema. PLEURA: No significant pleural effusion identified, no pneumothorax apparent. CARDIOVASCULAR: Heart size remains enlarged. The the OSSEOUS STRUCTURES: No significant abnormalities. VISUALIZED UPPER ABDOMEN: Normal. OTHER FINDINGS: None. IMPRESSION: Re- demonstrated are layering bilateral effusions and bibasilar atelectasis, left larger than right. Increased interstitial markings which is felt to be secondary to mild mild interstitial pulmonary edema.
[2017-06-14] MEDS ORDERED: Sod Polystyrene Sulf 15 gm/60 ml Susp PO ONE (11:41)
--- NOTE | 2017-06-14 11:42 | CP.PCM.CON ---
History of Present Illness - History of Present Illness History of Present Illness: RENAL CONSULT Reason for consult: NELSON HPI: 82 year old German male w/ CHF, pHTN, CAD, DM , hx of AVR that was admitted for chf exacerbation. During the course of his admission he had a rapid response for respiratory distress at CT scan. He was placed on bipap and has been given steroids and lasix. He remains on bipap at this point very sob and unable to give further history due to his dyspnea other than that he is sob. He is being followed by cardiology. He is being treated for his pHTN and w / diuretics for sytolic hf as well. ROS: unable to complete, pt too dyspneic to answer all questions PMHx: pthh, chf, cad, dm, avr, PSurgHx: CABG in 1999 and aortic valve replacement in 2006, left femoral neck fracture ORIF ALL: NKDA Meds: see MAR famhx: unable to obtain not able to answer questions sochx: unable to obtain not able to answer all questions pe: vs reviewed as below gen: mod respiratory distress sclera anicteric op: poor dentition neck: supple cv: +s1+s2 tachy lungs: coarse and crackles b/l abod: soft ext: 1+ edema neuro: follows commands psych: agitated skin no rash Past Patient History - Infectious Disease Hx of Infectious Diseases: None - Tetanus Immunizations Tetanus Immunization: Unknown - Past Medical History & Family History Past Medical History?: Yes - Past Social History Smoking Status: Never Smoked - CARDIAC Hx Congestive Heart Failure: Yes Hx Hypertension: Yes - PULMONARY Hx Chronic Obstructive Pulmonary Disease (COPD): Yes - NEUROLOGICAL HX Cerebrovascular Accident: Yes - HEENT Hx HEENT Problems: Yes Hx Glaucoma: Yes - RENAL Hx Chronic Kidney Disease: No - ENDOCRINE/METABOLIC Hx Diabetes Mellitus Type 2: Yes - HEMATOLOGICAL/ONCOLOGICAL Hx Blood Disorders: Yes (blood transfusion) - INTEGUMENTARY Hx Dermatological Problems: Yes Other/Comment: BILATERAL LE EDEMA MORE TO LEFT WITH DARKENED BROWN SKIN DISCOLORATION. - MUSCULOSKELETAL/RHEUMATOLOGICAL Hx Falls: Yes - GASTROINTESTINAL Hx Gastrointestinal Disorders: Yes (CONSTIPATION) Hx Gastroesophageal Reflux: Yes - GENITOURINARY/GYNECOLOGICAL Hx Genitourinary Disorders: Yes (ERECTILE DYSFUNCTION,BPH) Hx Prostate Problems: Yes - PSYCHIATRIC Hx Psychophysiologic Disorder: Yes (MEMORY LOSS) Hx Anxiety: Yes Hx Depression: Yes Hx Substance Use: No - SURGICAL HISTORY Hx Open Heart Surgery: Yes (CABG 1999) Hx Valve Replacement: Yes (2006) - ANESTHESIA Hx Anesthesia: Yes Hx Anesthesia Reactions: No Hx Malignant Hyperthermia: No Meds Allergies/Adverse Reactions: Allergies Allergy/AdvReac Type Severity Reaction Status Date / Time No Known Allergies Allergy Verified 05/20/17 19:36 - Medications Medications: Current Medications Atorvastatin Calcium (Lipitor) 40 mg PO DAILY [facility] Last Admin: 06/14/17 10:33 Dose: 40 mg Bupropion HCl (Wellbutrin) 75 mg PO BID [facility] Last Admin: 06/14/17 10:33 Dose: 75 mg Doxycycline Hyclate (Doryx) 100 mg PO Q12 [facility] PRN Reason: Protocol Stop: 06/22/17 22:01 Last Admin: 06/14/17 10:32 Dose: 100 mg Enoxaparin Sodium (Lovenox) 40 mg SC DAILY [facility] PRN Reason: Protocol Last Admin: 06/14/17 10:35 Dose: 40 mg Fluticasone Propionate (Flonase) 1 actuation NS DAILY [facility] Last Admin: 06/14/17 10:38 Dose: 1 spr Furosemide (Lasix) 40 mg IVP DAILY [facility] Last Admin: 06/14/17 08:33 Dose: 40 mg Gabapentin (Neurontin) 100 mg PO DAILY [facility] Last Admin: 06/14/17 10:33 Dose: 100 mg Home Med (Home Med) 1 unit PO DAILY [facility] Last Admin: 06/14/17 10:38 Dose: 1 unit Milrinone Lactate/Dextrose (Primacor 20mg/100ml D5w) 100 mls @ 8.057 mls/hr IV .[id number] PRN; Protocol; 0.375 MCG/KG/MIN PRN Reason: TITRATE PER MD ORDER Last Admin: 06/14/17 11:15 Dose: 0.375 mcg/kg/min, 8.057 mls/hr Meropenem 1 gm/ Sodium (Chloride) 100 mls @ 100 mls/hr IVPB Q12 [facility] PRN Reason: Protocol Stop: 06/21/17 22:01 Last Admin: 06/14/17 09:41 Dose: 100 mls/hr Insulin Detemir (Levemir) 10 unit SC Q12 [facility] Last Admin: 06/14/17 10:37 Dose: 10 unit Insulin Human Regular (Humulin R Med) 0 units SC ACHS [facility] PRN Reason: Protocol Last Admin: 06/14/17 11:23 Dose: 7 units Ipratropium [place] (Atrovent) 0.5 mg IH [id number] [facility] Last Admin: 06/14/17 08:32 Dose: 0.5 mg Levalbuterol HCl (Xopenex) 1.25 mg IH [id number] [facility] Last Admin: 06/14/17 08:48 Dose: 1.25 mg Levalbuterol HCl (Xopenex) 0.63 mg IH [id number] PRN PRN Reason: Shortness of Breath Last Admin: 06/14/17 03:21 Dose: 0.63 mg Magnesium Oxide (Mag-Ox) 400 mg PO BID [facility] Last Admin: 06/14/17 10:33 Dose: 400 mg Methylprednisolone (Solu-Medrol) 30 mg IV Q8 [facility] Last Admin: 06/14/17 05:06 Dose: 30 mg Metoprolol Tartrate (Lopressor) 12.5 mg PO Q12 [facility] Last Admin: 06/14/17 10:35 Dose: 12.5 mg Atomoxetine Hcl [ (Strattera] 60 Mg) 60 mg PO DAILY [facility] Last Admin: 06/14/17 10:39 Dose: Not Given Nystatin (Nystop Topical Powder) 0 gm TOP DAILY [facility] Last Admin: 06/14/17 10:36 Dose: 1 units Pantoprazole Sodium (Protonix Ec Tab) 40 mg PO DAILY [facility] Last Admin: 06/14/17 10:34 Dose: 40 mg Polyethylene Glycol (Miralax) 17 gm PO DAILY [facility] Last Admin: 06/14/17 10:35 Dose: 17 gm Sildenafil Citrate (Revatio) 20 mg PO Q8 [facility] Last Admin: 06/14/17 05:06 Dose: 20 mg Sodium Chloride ([place] Nasal [place]) 0 ml NS TID PRN PRN Reason: Nasal congestion Zolpidem Tartrate (Ambien) 5 mg PO HS PRN; Protocol PRN Reason: Insomnia Last Admin: 06/11/17 23:29 Dose: 5 mg Results - Vital Signs Recent Vital Signs: Last Vital Signs Temp 98.3 F 06/14/17 06:00 Pulse 94 H 06/14/17 10:35 Resp 24 06/14/17 07:00 BP 125/59 L 06/14/17 10:35 Pulse Ox 97 06/14/17 07:00 - Labs Result Diagrams: 06/14/17 10:20 06/14/17 10:20 Labs: Laboratory Results - last 24 hr 06/13/17 06/13/17 06/14/17 16:09 22:05 10:20 WBC 13.1 H D RBC 3.35 L Hgb 10.7 L Hct 31.0 L MCV 92.5 MCH 31.9 MCHC 34.5 RDW 13.8 Plt Count 152 MPV 11.7 H Gran % 96.2 H Lymph % (Auto) 2.3 L [place] % (Auto) 1.4 Eos % (Auto) 0.0 L Baso % (Auto) 0.1 Gran # 12.62 H Lymph # 0.3 L [place] # 0.2 Eos # 0.0 Baso # 0.01 Sodium Potassium Chloride Carbon Dioxide Anion Gap BUN Creatinine Est GFR ( Amer) Est GFR (Non-Af Amer) POC Glucose (mg/dL) 222 H 166 H Random Glucose Calcium Phosphorus Magnesium Total Bilirubin AST ALT Alkaline Phosphatase Total Protein Albumin Globulin Albumin/Globulin Ratio 06/14/17 10:20 WBC RBC Hgb Hct MCV MCH MCHC RDW Plt Count MPV Gran % Lymph % (Auto) [place] % (Auto) Eos % (Auto) Baso % (Auto) Gran # Lymph # [place] # Eos # Baso # Sodium 129 L Potassium 5.7 H* D Chloride 94 L Carbon Dioxide 21 Anion Gap 20 BUN 86 H Creatinine 2.0 H Est GFR ( Amer) 39 Est GFR (Non-Af Amer) 32 POC Glucose (mg/dL) Random Glucose 316 H* D Calcium 9.4 Phosphorus 6.9 H Magnesium 2.2 Total Bilirubin 1.1 AST 35 ALT 47 Alkaline Phosphatase 141 H Total Protein 6.2 Albumin 3.3 Globulin 2.8 Albumin/Globulin Ratio 1.2 Assessment & Plan - Assessment and Plan (Free Text) Assessment: ARF/ Hyperphosphatemia/ Acute on Chronic systolic heart failure/ Anemia / Hyperkalemia/ Diabetic kidney disease/ Pulmonary hypertension/ hyponatremia plan: NELSON likely due to cardiorenal. Agree w/ continuing diuresis - his uop has been adequate can inc dose of lasix to 80 if needed tx hyperk medically today, partly being contriubted to by the high sugars. Insulin should help as well hypona is likely from volume overload - continue diuresis and free water fluid restriction follow up cardiology diabetes per primary team will start phos binder if he tolerates discussed w/ criminal defense lawyer
[2017-06-14 16:06] LABS: CREATININE,RANDOM URINE 111 mg/dL; TOTAL PROTEIN,RANDOM URINE 19 mg/L
--- NOTE | 2017-06-14 18:22 | PN ---
DATE: 06/14/2017 SUBJECTIVE: The patient is in bed, in no acute distress, nontoxic. OBJECTIVE: VITAL SIGNS: Temperature is 98, blood pressure is 125/50, respiratory rate of 20, heart rate of 92. HEENT: Unremarkable. NECK: Supple. LUNGS: Have decreased breath sounds. HEART: Normal S1 and S2. ABDOMEN: Soft, nontender. LABORATORY EXAMINATION: Reveals a white count of 13,100, hemoglobin of 10, platelets of 152. Chemistries are noted. The patient's creatinine is 2 and it has increased from 1.3 to 2 now, and urinalysis is noted. The patient's procalcitonin is reported to be at 0.22 on 06/12/2017. Microbiology reveals the blood cultures are no growth. Urine cultures are no growth. The patient's chest x-ray from this morning, bilateral effusion, bilateral atelectasis, interstitial markings, pulmonary edema. ASSESSMENT AND PLAN: This is an 82-year-old male. seen earlier this morning in room 128, bed 2, less short of breath since yesterday and doing better. The patient has a history of coronary artery disease, cerebrovascular accident, asthma, congestive heart failure, history of endocarditis, prostate cancer, peripheral neuropathy, hypertension, the patient is admitted in the hospital, developed tachycardia, dyspnea, hypoxia and new infiltrate with, 1. Severe sepsis secondary to hospital-acquired healthcare-associated pneumonia with acute diastolic congestive heart failure on top of chronic congestive heart failure with acute kidney injury with normal procalcitonin and most consistent with congestive heart failure with negative blood cultures and negative urine cultures. We will discontinue the meropenem and currently on p.o. doxycycline day #3. The patient does not have a bacterial pneumonia. We will discontinue the meropenem, day #3 of 5 days of doxycycline. Acute congestive heart failure management as per primary and Cardiology. Segun Cavazos MD
--- NOTE | 2017-06-14 19:57 | PN ---
DATE: 06/14/2017 PULMONARY CRITICAL CARE PROGRESS NOTE REFERRING PHYSICIAN: Arya Booker MD SUBJECTIVE: He is lying in the bed on noninvasive ventilation. Feels okay. Overnight events noted. Still get episodic short of breath requiring diuretics and BiPAP at that time. No hemoptysis, no emesis, no hematuria, no diarrhea. No leg swelling reported. OBJECTIVE: GENERAL: On noninvasive ventilation. VITAL SIGNS: Temperature is 98, heart rate is 97, respiratory rate is 24, blood pressure is 108/45 and pulse oximetry is 94% on this ventilation. HEENT: Moist mucous membranes. Crowded airway. NECK: Supple. No JVD. LUNGS: Has a few crackles at bases. HEART: S1 and S2. ABDOMEN: Soft and nontender. No organomegaly. EXTREMITIES: There is no edema. NEUROLOGICAL: Awake and alert. Follow simple commands. MEDICATIONS: He is on Ambien 5 mg at bedtime p.r.n., also Atrovent inhaler q. 6 hours, doxycycline 100 mg twice a day, Flonase one spray each nostril daily, Lasix 40 mg IV daily, Levemir 15 units subcu q. 12 hour, Lipitor 40 mg daily, metoprolol tartrate 12.5 mg twice a day, Lovenox 40 mg daily, magnesium oxide 400 mg twice a day, MiraLax 17 g daily, gabapentin 100 mg daily, nasal saline two spray each nostril q. 6 hours, Primacor IV drip, Protonix 40 mg daily, Renagel 800 mg three times a day, Revatio 20 mg q. 8 hours, Solu-Medrol 20 mg q. 8 hours, Wellbutrin 75 mg twice a day, Xopenex 1.25 mg q. 6 hours p.r.n. and Xopenex inhale q. 4 hours. LABORATORY DATA: Shows hemoglobin 10.7, hematocrit 31.0, WBC 13.1 and platelet count is 152. Sodium 129, potassium 5.7, chloride 94, bicarbonate 21, BUN 86, creatinine 2.0, glucose 316, calcium 9.4, phosphorus 6.9. AST 35, ALT 47, alk phos is 141, albumin is 3.3. Chest x-ray done today shows clearing bilateral effusion and bibasilar atelectasis, left larger than the right, increase interstitial marking which seems like a pulmonary edema. IMPRESSION AND PLAN: Severe pulmonary hypertension, right heart failure, also have a left heart valvular disease, diastolic dysfunction, diabetes, now has a renal failure. Spoke to nursing staff in detail. At present, the patient is getting Revatio 20 mg q. 8 hours, also getting Letairis 5 mg daily. He is also getting p.r.n. diuretics, nebulizer treatment. Still on steroids, on noninvasive ventilation. Still waiting for prostacyclin, being followed by Cardiology, Nephrology. Overall poor prognosis. Critical care time spent more than 35 minutes. Thank you and we will follow with you. Guru Bustos MD
--- NOTE | 2017-06-14 20:21 | PN ---
DATE: 06/14/2017 SUBJECTIVE: This patient was evaluated earlier today. The patient is on BiPAP for respiratory distress. PHYSICAL EXAMINATION VITAL SIGNS: Temperature 98.8, pulse 89, blood pressure is 125/59. HEENT: Atraumatic. Anicteric. NECK: Supple. HEART: S1, S2 heard. LUNGS: Bilateral air entry present, a few rhonchi, slightly reduced in the base. ABDOMEN: Soft. LABORATORY DATA: WBC is 13.1, hemoglobin 10.7, hematocrit 31, platelets 152. Chemistry: Sodium 129, potassium 5.7, BUN 89, creatinine 2.0, glucose 316. IMPRESSION: This 82-year-old patient with severe pulmonary hypertension, valvular heart disease, status post aortic valve replacement, mitral valve repair, severe pulmonary hypertension ,acute worsening of the respiratory status, has pleural effusion and pulmonary consolidation, presently has acute kidney injury. The patient also had elevated liver function tests which is more or less stable. The alkaline phosphatase is slightly elevated to 141. The patient has a gallstone with normal common bile duct, normal gallbladder wall. PLAN: At present time, Gastrointestinal recommendation is follow up of the LFTs, most likely secondary to hepatic congestion. Continue the present treatment as per the Cardiology, Pulmonary and Renal. Thank you very much for allowing us to participate in the care of the patient. Karly Fraser MD [facility]
[2017-06-15] MEDS: Levalbuterol 1.25 MG/3 ML Inhal Soln UD IH SCH ×4 (01:26→20:00)
[2017-06-15] MEDS: Ipratropium 0.02% Inhal Soln (0.5 mg/2.5 ml) UD IH SCH ×4 (01:27→20:00)
--- NOTE | 2017-06-15 02:12 | PN ---
DATE: SUBJECTIVE: The patient is in ICU. The patient is comfortable, in no distress. He received Lasix and seems to be doing better than before, and he is saturating good 97% on 5 L. PHYSICAL EXAMINATION: VITAL SIGNS: Temperature is 98, heart rate is 101, and blood pressure 128/60. HEAD AND NECK: Normal. No JVD. No thyromegaly. CHEST: Clear with diminished breath sounds at the bases, left more than right. CARDIAC: First sound and second sounds normal. Systolic murmur across the aortic area. ABDOMEN: Soft, nontender, and bowel sounds intact. EXTREMITIES: Mild edema in the foot area. NEUROLOGIC: Normal. He is alert, awake, and oriented x3. LABORATORY STUDIES: Shows sodium 129, potassium 5.7, chloride 94, bicarbonate 21, BUN 86, and creatinine is 2. His blood sugar noted to be 316, his calcium 9.4, his phosphorus 6.9, his magnesium 2.2, his alkaline phosphatase 141, and ALT and AST is normal. The patient's CBC, white count is coming down to 13.1, hemoglobin 10.7, hematocrit 31, and platelets 152. Chest x-ray still shows atelectasis and congestion. IMPRESSION AND PLAN: 1. Acute congestive heart failure, acute worsening of his chronic diastolic heart failure. The patient has ejection fraction of 55%, history of aortic valve replacement, history of mitral regurgitations and recent cath was wedged within the artery. The patient recently was treated with Letairis, which could help his pulmonary hypertension, could explain part of the increased flow to the left side with worsening pressure on the left side causing more diastolic dysfunction and heart failure. Continue Lasix. Continue oxygen. Continue BiPAP. We will follow up with the Cardiology recommendations and we will focus on treating his pulmonary hypertension as well as using diuresis, IV milrinone to improve both right and left congestive heart failure. 2. Severe pulmonary hypertension with multifactorial etiology. Right now, we will continue Letairis 5 mg. Continue sildenafil 20 mg three times a day. The patient is stable. These prescriptions for getting the other medication prostacyclin was given to the [facility] to get both of them. Direction was given. Paper signed and given to the pharmacy and the other medication is Orenitram was given to [facility] and all information was sent and faxed. We will continue followup on that. 3. Chronic depression, insomnia, and anxiety. Continue Strattera and Wellbutrin, will follow up clinically. 4. Chronic obstructive pulmonary disease. Continue steroids, tapering down steroids. Continue inhaled bronchodilators. 5. Diabetes type 2. Blood sugar running high. Continue insulin. Increase Levemir and insulin coverage and same time decrease the steroids IV q. 8 hours. We will keep tapering down steroids. 6. Acute renal injury on top of chronic, patient's creatinine went up from 1.9 yesterday to 2. Continue followup and that probably could be the plateau for rise in creatinine. Continue diuresis. Continue IV milrinone. Continue on her medication . 7. Underlying diabetes and we will follow up clinically. I did discuss with the son his condition in detail and with Dr. Dhruv Peñaloza, his Direct Care Professional on the case. Continue gastrointestinal and deep venous thrombosis prophylaxis. Arya Booker MD
[2017-06-15] MEDS: MethylPREDNISolone 40 mg Vial IV SCH (06:30)
[2017-06-15] MEDS: Sildenafil 20 MG TAB PO SCH ×3 (06:31→21:07)
[2017-06-15] MEDS: Levalbuterol 0.63 MG/3 ML Inhal Soln UD IH PRN ×2 (07:50→15:07)
[2017-06-15] MEDS: Insulin Reg-MEDIUM-Coverage SC SCH ×2 (08:37→12:20)
[2017-06-15] MEDS: Enoxaparin 40 mg Syringe SC SCH (09:29)
[2017-06-15] MEDS: POLYETHYLENE GLYCOL 3350 17 GM/Dose PACKET PO SCH (09:29)
[2017-06-15] MEDS: Magnesium Oxide 400 mg Tab UD PO SCH (09:30)
[2017-06-15] MEDS: Pantoprazole 40 mg EC Tab PO SCH (09:30)
[2017-06-15] MEDS: Nystatin 100,000 Units/gm Topical Pow(15 gm) TOP SCH (09:31)
[2017-06-15] MEDS: Fluticasone Nasal 50 mcg/Spray NS SCH (09:31)
[2017-06-15] MEDS: LETAIRIS 5 MG PO SCH (09:32)
[2017-06-15 10:56] LABS: GRAN # 10.48 (1.4-6.5); GRAN % 93.2 % (50.0-68.0); LYMPH # 0.3 (1.2-3.4); LYMPH % 2.7 % (22.0-35.0); MEAN CELL VOLUME 91.5 fl (80.0-105.0); MEAN CORPUSCULAR HEMOGLOBIN 30.7 pg (25.0-35.0); MEAN CORPUSCULAR HGB CONC 33.6 g/dl (31.0-37.0); MEAN PLATELET VOLUME 11.3 fl (7.0-11.0); MONO # 0.5 (0.1-0.6); MONO % 4.1 % (1.0-6.0); PLATELET COUNT 154 10^3/uL (120.0-450.0); RBC 2.93 10^6/uL (3.5-6.1); RED CELL DISTRIBUTION WIDTH 13.7 % (11.5-14.5); WHITE BLOOD COUNT 11.2 10^3/ul (4.5-11.0)
[2017-06-15 11:35] LABS: ALB/GLOB RATIO 1.1 (1.1-1.8); ALBUMIN 3.2 g/dL (3.0-4.8); MAGNESIUM 2.4 mg/dL (1.7-2.2)
[2017-06-15] MEDS ORDERED: Insulin Detemir 100 units/ml Vial (Levemir) SC SCH (12:00)
[2017-06-15] MEDS: Milrinone 20mg/100ml D5W 100 ML IV PRN (12:21)
--- NOTE | 2017-06-15 12:36 | PN ---
DATE: 06/15/2017 SUBJECTIVE: The patient is in bed in no acute distress, nontoxic. PHYSICAL EXAMINATION: VITAL SIGNS: Temperature is 97, blood pressure is 115/50, respiratory rate of 21, and heart rate of 90. HEENT: Unremarkable. NECK: Supple. LUNGS: Have decreased breath sounds. HEART: Normal S1 and S2. ABDOMEN: Soft, nontender. LABORATORY DATA: Reveals the patient to have white count of 13,000, hemoglobin of 10, and platelets are 152. Chemistries reveals BUN of 86 and creatinine of 2.0. The patient's procalcitonin is 0.22. ASSESSMENT AND PLAN: An 82-year-old male in the ICU was short of breath and with history of coronary artery disease, cerebrovascular accident, asthma, congestive heart failure, history of endocarditis, prostate cancer, peripheral neuropathy, and hypertension, admitted this admission with: 1. Severe sepsis secondary to hospital-acquired associated pneumonia with acute diastolic congestive heart failure on top of chronic congestive heart failure with acute kidney injury with normal procalcitonin, more consistent with congestive heart failure and negative cultures, negative blood and urine cultures. Currently on p.o. doxycycline day #4 with complete [address] Booker's note is reviewed. The patient has had a history of aortic valve replacement and mitral regurgitation and severe pulmonary hypertension and acute kidney injury. Segun Cavazos MD
--- NOTE | 2017-06-15 13:54 | PN ---
DATE: 06/15/2017 CARDIOLOGY FOLLOWUP NOTE SUBJECTIVE: The patient's breathing is better. OBJECTIVE: VITAL SIGNS: Blood pressure is 115/54, heart rate is 100. NECK: Negative JVD. LUNGS: Clear to auscultation. HEART: Reveals S1 and S2. EXTREMITIES: Without edema. LABORATORY DATA: Hemoglobin is 10.7 and white count is down to 13.1. Chemistries, glucose is 241. IMPRESSION: 1. Pulmonary hypertension. 2. Dyspnea, which has improved. 3. History of pulmonary hypertension. 4. Normal left ventricular function. 5. Prerenal azotemia. 6. History of aortic and mitral valve replacement. PLAN: Given these findings, the patient is doing better on his current medical therapy. Santos Hurley MD
[2017-06-15] MEDS ORDERED: Sodium Chloride 0.45% 1,000 ML IV SCH (14:00)
[2017-06-15 14:24] LABS: LYMPHOCYTE 3 % (22.0-35.0); MONOCYTE 3 % (1.0-6.0); NEUTROPHIL 94 % (50.0-70.0); PLATELET ESTIMATE NORMAL (NORMAL)
[2017-06-15 14:25] LABS: POIKILOCYTOSIS SLIGHT
--- NOTE | 2017-06-15 15:07 | CP.PCM.PN ---
Subjective - Date & Time of Evaluation Date of Evaluation: 06/15/17 Time of Evaluation: 14:59 - Subjective Subjective: RENAL FOLLOW UP S: looks much improved respiratory quiroga o: pe: vs reviewed as below gen: no respiratory distress sclera anicteric op: poor dentition neck: supple cv: +s1+s2 lungs: poor air movment but otherwise clear abod: soft ext: trace edema neuro: follows commands psych: agitated skin no rash ARF/ Hyperphosphatemia/ Acute on Chronic systolic heart failure/ Anemia / Hyperkalemia/ Diabetic kidney disease/ Pulmonary hypertension/ hyponatremia/ hypermagnesemia plan: NELSON likely due to cardiorenal. Has been negative the last couple days and cr has bumped. His respiratory status did improve w/ NELSON. Perhaps an element of overidiuresis - may be preload dependant due to RV failure. Will d/c lasix. If cr bumps further tomorrow would recc gentle 0.9% ns follow up cardiology diabetes per primary team sugars remain poorly controlled in renagel to 1600 will d/c mag supplement discussed w Objective - Vital Signs/Intake and Output Vital Signs (last 24 hours): Temp Pulse Resp BP Pulse Ox 97.9 F 95 H 41 H 146/72 98 06/15/17 06:00 06/15/17 12:21 06/15/17 07:00 06/15/17 12:21 06/15/17 07:00 Intake and Output: 06/15/17 06/15/17 06:59 18:59 Intake Total 220 100 Output Total 275 Balance -55 100 - Medications Medications: Current Medications Alprazolam (Xanax) 0.25 mg PO BID PRN; Protocol PRN Reason: Anxiety Stop: 06/22/17 18:01 Atorvastatin Calcium (Lipitor) 40 mg PO DAILY [facility] Last Admin: 06/15/17 09:30 Dose: 40 mg Bupropion HCl (Wellbutrin) 75 mg PO BID [facility] Last Admin: 06/15/17 09:30 Dose: 75 mg Doxycycline Hyclate (Doryx) 100 mg PO Q12 [facility] PRN Reason: Protocol Stop: 06/22/17 22:01 Last Admin: 06/15/17 09:30 Dose: 100 mg Enoxaparin Sodium (Lovenox) 30 mg SC DAILY [facility] PRN Reason: Protocol Fluticasone Propionate (Flonase) 1 actuation NS DAILY [facility] Last Admin: 06/15/17 09:31 Dose: 1 spr Furosemide (Lasix) 40 mg IVP DAILY [facility] Last Admin: 06/15/17 09:31 Dose: 40 mg Gabapentin (Neurontin) 100 mg PO DAILY [facility] Last Admin: 06/15/17 09:30 Dose: 100 mg Home Med (Home Med) 1 unit PO DAILY [facility] Last Admin: 06/15/17 09:32 Dose: 1 unit Milrinone Lactate/Dextrose (Primacor 20mg/100ml D5w) 100 mls @ 8.057 mls/hr IV .[id number] PRN; Protocol; 0.375 MCG/KG/MIN PRN Reason: TITRATE PER MD ORDER Last Admin: 06/15/17 12:21 Dose: 0.375 mcg/kg/min, 8.057 mls/hr Sodium Chloride (Sodium Chloride 0.45%) 1,000 mls @ 40 mls/hr IV .Q24H [facility] Last Admin: 06/15/17 14:13 Dose: 40 mls/hr Insulin Detemir (Levemir) 15 unit SC 12 [facility] Last Admin: 06/15/17 12:23 Dose: 15 unit Insulin Human Lispro (Humalog High) 0 units SC ACHS [facility] PRN Reason: Protocol Ipratropium [place] (Atrovent) 0.5 mg IH [id number] [facility] Last Admin: 06/15/17 13:35 Dose: 0.5 mg Levalbuterol HCl (Xopenex) 1.25 mg IH [id number] [facility] Last Admin: 06/15/17 13:35 Dose: 1.25 mg Levalbuterol HCl (Xopenex) 0.63 mg IH [id number] PRN PRN Reason: Shortness of Breath Last Admin: 06/14/17 19:33 Dose: 0.63 mg Magnesium Oxide (Mag-Ox) 400 mg PO BID [facility] Last Admin: 06/15/17 09:30 Dose: 400 mg Metoprolol Tartrate (Lopressor) 12.5 mg PO Q12 [facility] Last Admin: 06/15/17 09:30 Dose: 12.5 mg Atomoxetine Hcl [ (Strattera] 60 Mg) 60 mg PO DAILY [facility] Last Admin: 06/15/17 09:33 Dose: Not Given Nystatin (Nystop Topical Powder) 0 gm TOP DAILY [facility] Last Admin: 06/15/17 09:31 Dose: 1 units Pantoprazole Sodium (Protonix Ec Tab) 40 mg PO DAILY [facility] Last Admin: 06/15/17 09:30 Dose: 40 mg Polyethylene Glycol (Miralax) 17 gm PO DAILY [facility] Last Admin: 06/15/17 09:29 Dose: 17 gm Prednisone (Prednisone Tab) 20 mg PO DAILY [facility] Sevelamer HCl (Renagel) 800 mg PO TID [facility] Last Admin: 06/15/17 13:43 Dose: 800 mg Sildenafil Citrate (Revatio) 20 mg PO Q8 [facility] Last Admin: 06/15/17 13:43 Dose: 20 mg Sodium Chloride ([place] Nasal [place]) 0 ml NS TID PRN PRN Reason: Nasal congestion Zolpidem Tartrate (Ambien) 5 mg PO HS PRN; Protocol PRN Reason: Insomnia Last Admin: 06/14/17 22:57 Dose: 5 mg - Labs Labs: 06/15/17 10:50 06/15/17 10:50 PT 15.4 SECONDS (9.4-12.5) H 05/31/17 19:20 INR 1.40 (0.93-1.08) H 05/31/17 19:20 APTT 29.6 Seconds (25.1-36.5) 05/31/17 19:20
[2017-06-15] MEDS: Insulin Lispro (HUMAlog) HIGH Coverage SC SCH ×2 (17:13→21:23)
--- NOTE | 2017-06-15 17:34 | RAD ---
HISTORY: SOB. COMPARISON: No prior. FINDINGS: LUNGS: Diffuse bilateral airspace disease most likely representing pulmonary edema/CHF. Probable bilateral effusions. PLEURA: As above. No apparent pneumothorax apparent. CARDIOVASCULAR: Cardiomegaly. Sternotomy wires and prostatic valve again noted unchanged. OSSEOUS STRUCTURES: No significant abnormalities. VISUALIZED UPPER ABDOMEN: Normal. OTHER FINDINGS: None. IMPRESSION: Diffuse bilateral airspace disease most likely representing pulmonary edema/CHF. Probable bilateral effusions.
[2017-06-15] MEDS: MethylPREDNISolone 40 mg Vial IVP SCH (21:10)
--- NOTE | 2017-06-15 23:15 | PN ---
DATE: 06/15/2017 PULMONARY CRITICAL CARE PROGRESS NOTE REFERRING PHYSICIAN: Dr. Booker SUBJECTIVE: He is lying in the bed, noninvasive ventilation. Overnight events noted. Get anxious at times, requires increased oxygen requirement. No hemoptysis. No hematemesis. No hematuria. No diarrhea reported. PHYSICAL EXAMINATION VITAL SIGNS: Noninvasive ventilation. Temp is 98, heart rate is 114, respiratory rate is 27, blood pressure is 108/53, pulse ox is 97% on BiPAP with supplemental oxygen. HEENT: Moist mucous membranes. Crowded airway. NECK: Supple. No JVD. LUNGS: Few scattered rhonchi. Crackles at bases. HEART: S1 and S2. ABDOMEN: Soft and nontender. No organomegaly. EXTREMITIES: There is no edema. NEUROLOGIC: Awake and alert. Follow simple commands. MEDICATIONS: He is on Ambien 5 mg bedtime p.r.n., also on Atrovent inhaled q. 6 hours, doxycycline 100 mg twice a day, Flonase one spray to each nostril daily, insulin coverage, Levemir 15 units subcu q. 12 hours, Lipitor 40 mg daily, metoprolol tartrate 25 mg twice a day, Lovenox 30 mg subcu daily, MiraLax 17 g daily, gabapentin 100 mg daily, nystatin to affected area, nasal saline two sprays each nostril q. 3 hours, prednisone 20 mg daily, Primacor IV drip, Protonix 40 mg daily, Revatio 20 mg q 8 hours, Solu-Medrol 60 mg q 6 hours, Wellbutrin 75 mg twice a day, Xanax 0.25 mg twice a day p.r.n., Xopenex 1.25 mg q 6 hours p.r.n. LABORATORY DATA: Shows hemoglobin 9.0, hematocrit 26.8, WBC 11.2, platelet count is 154. Sodium is 129, potassium is 5.3, chloride is 90, bicarbonate is 25, BUN is 110, creatinine is 3.0, glucose is 331, calcium is 9.0, phosphorus is 7.0, magnesium is 2.4, AST is 23, ALT is 44, alk phos is 108, albumin is 3.2. Microbiology: Blood culture and urine culture, there is no growth. Chest x-ray done this afternoon shows diffuse bilateral airspace disease, most likely representing pulmonary edema. IMPRESSION AND PLAN: Severe pulmonary hypertension, right heart failure, history of valvular heart disease, may be complaint of diastolic dysfunction, diabetes, renal failure. Case discussed with family at bedside, also spoke to Dr. Booker in detail. I had a long discussion with lead mason tender Dr. Dhruv Peñaloza. Case discussed with attending at [facility] and bulk sugar handler. Patient [facility] be transferred [facility] to receive IV prostacyclin and possible inhaled nitric oxide. The renal insufficiency probably could be contributed by contrast, but I believe it is because of the vasodilation and drop of blood pressure. We will follow clinic function closely and once the bed available at [facility], we will transfer there for IV prostacyclin and inhaled nitric oxide. Overall of course poor prognosis, severe pulmonary hypertension. We will discontinue prednisone, decrease Solu-Medrol to 20 q. 8 hours, which should be discontinued soon. For now, continue Primacor until IV prostacyclin is available. Avoid nephrotoxic drugs. Critical care time spent more than 35 minutes. Thank you and we will follow with you. Guru Bustos MD
[2017-06-16] MEDS: Milrinone 20mg/100ml D5W 100 ML IV PRN (00:38)
[2017-06-16] MEDS: Levalbuterol 1.25 MG/3 ML Inhal Soln UD IH SCH ×4 (01:21→19:37)
[2017-06-16] MEDS: Ipratropium 0.02% Inhal Soln (0.5 mg/2.5 ml) UD IH SCH ×4 (01:21→19:37)
[2017-06-16] MEDS: MethylPREDNISolone 40 mg Vial IVP SCH ×3 (05:21→21:11)
[2017-06-16] MEDS: Sildenafil 20 MG TAB PO SCH ×3 (05:22→21:12)
[2017-06-16 06:08] LABS: GRAN # 9.79 (1.4-6.5); GRAN % 94.6 % (50.0-68.0); HEMOGLOBIN 9.2 g/dL (14.0-18.0); LYMPH # 0.4 (1.2-3.4); LYMPH % 3.5 % (22.0-35.0); MEAN CELL VOLUME 90.9 fl (80.0-105.0); MEAN CORPUSCULAR HGB CONC 34.1 g/dl (31.0-37.0); MEAN PLATELET VOLUME 11.7 fl (7.0-11.0); MONO # 0.2 (0.1-0.6); MONO % 1.9 % (1.0-6.0); RBC 2.97 10^6/uL (3.5-6.1); RED CELL DISTRIBUTION WIDTH 13.7 % (11.5-14.5); WHITE BLOOD COUNT 10.4 10^3/ul (4.5-11.0)
[2017-06-16 06:57] LABS: ALB/GLOB RATIO 1.2 (1.1-1.8); ALBUMIN 3.4 g/dL (3.0-4.8); CALCIUM 9.3 mg/dL (8.4-10.5); MAGNESIUM 2.5 mg/dL (1.7-2.2)
[2017-06-16] MEDS ORDERED: Sod Polystyrene Sulf 15 gm/60 ml Susp PO ONE (07:40)
[2017-06-16] MEDS: Pantoprazole 40 mg EC Tab PO SCH (09:53)
[2017-06-16] MEDS: POLYETHYLENE GLYCOL 3350 17 GM/Dose PACKET PO SCH (09:54)
[2017-06-16] MEDS: Enoxaparin 30 mg Syringe SC SCH (09:54)
[2017-06-16] MEDS: LETAIRIS 5 MG PO SCH (09:59)
[2017-06-16] MEDS: Nystatin 100,000 Units/gm Topical Pow(15 gm) TOP SCH (09:59)
[2017-06-16] MEDS: Fluticasone Nasal 50 mcg/Spray NS SCH (09:59)
--- NOTE | 2017-06-16 11:13 | CP.PCM.PN ---
Subjective - Date & Time of Evaluation Date of Evaluation: 06/16/17 Time of Evaluation: 08:30 - Subjective Subjective: Pt seen and examined, remains on BIPAP, reports his SOB is slightly improved. Objective - Vital Signs/Intake and Output Vital Signs (last 24 hours): Temp Pulse Resp BP Pulse Ox 98 F 98 H 27 H 127/51 L 97 06/16/17 04:00 06/16/17 10:45 06/16/17 04:30 06/16/17 04:00 06/16/17 10:45 Intake and Output: 06/16/17 06/16/17 06:59 18:59 Intake Total 436 Output Total 450 Balance -14 - Medications Medications: Current Medications Alprazolam (Xanax) 0.25 mg PO BID PRN; Protocol PRN Reason: Anxiety Stop: 06/22/17 18:01 Atorvastatin Calcium (Lipitor) 40 mg PO DAILY [facility] Last Admin: 06/16/17 09:59 Dose: 40 mg Bupropion HCl (Wellbutrin) 75 mg PO BID [facility] Last Admin: 06/16/17 09:53 Dose: 75 mg Doxycycline Hyclate (Doryx) 100 mg PO Q12 [facility] PRN Reason: Protocol Stop: 06/22/17 22:01 Last Admin: 06/16/17 09:53 Dose: 100 mg Enoxaparin Sodium (Lovenox) 30 mg SC DAILY [facility] PRN Reason: Protocol Last Admin: 06/16/17 09:54 Dose: 30 mg Fluticasone Propionate (Flonase) 1 actuation NS DAILY [facility] Last Admin: 06/16/17 09:59 Dose: 1 spr Gabapentin (Neurontin) 100 mg PO DAILY [facility] Last Admin: 06/16/17 09:53 Dose: 100 mg Home Med (Home Med) 1 unit PO DAILY [facility] Last Admin: 06/16/17 09:59 Dose: 1 unit Milrinone Lactate/Dextrose (Primacor 20mg/100ml D5w) 100 mls @ 4.297 mls/hr IV .[id number] PRN; Protocol; 0.2 MCG/KG/MIN PRN Reason: TITRATE PER MD ORDER Insulin Detemir (Levemir) 20 unit SC HS [facility] Insulin Human Lispro (Humalog Low) 0 units SC ACHS [facility] PRN Reason: Protocol Insulin Human Lispro (Humalog) 6 units SC AC [facility] Ipratropium [place] (Atrovent) 0.5 mg IH [id number] [facility] Last Admin: 06/16/17 07:07 Dose: 0.5 mg Levalbuterol HCl (Xopenex) 1.25 mg IH [id number] [facility] Last Admin: 06/16/17 07:07 Dose: 1.25 mg Levalbuterol HCl (Xopenex) 0.63 mg IH [id number] PRN PRN Reason: Shortness of Breath Last Admin: 06/15/17 15:07 Dose: 0.63 mg Methylprednisolone (Solu-Medrol) 20 mg IVP Q8 [facility] Last Admin: 06/16/17 05:21 Dose: 20 mg Metoprolol Tartrate (Lopressor) 12.5 mg PO Q12 [facility] Last Admin: 06/16/17 09:53 Dose: 12.5 mg Atomoxetine Hcl [ (Strattera] 60 Mg) 60 mg PO DAILY [facility] Last Admin: 06/16/17 09:55 Dose: Not Given Nystatin (Nystop Topical Powder) 0 gm TOP DAILY [facility] Last Admin: 06/16/17 09:59 Dose: 1 units Pantoprazole Sodium (Protonix Ec Tab) 40 mg PO DAILY [facility] Last Admin: 06/16/17 09:53 Dose: 40 mg Polyethylene Glycol (Miralax) 17 gm PO DAILY [facility] Last Admin: 06/16/17 09:54 Dose: 17 gm Sevelamer HCl (Renagel) 1,600 mg PO TID [facility] Last Admin: 06/16/17 09:52 Dose: 1,600 mg Sildenafil Citrate (Revatio) 20 mg PO Q8 [facility] Last Admin: 06/16/17 05:22 Dose: 20 mg Sodium Chloride ([place] Nasal [place]) 0 ml NS TID PRN PRN Reason: Nasal congestion Zolpidem Tartrate (Ambien) 5 mg PO HS PRN; Protocol PRN Reason: Insomnia Last Admin: 06/15/17 21:07 Dose: 5 mg - Labs Labs: 06/16/17 05:00 06/16/17 05:00 PT 15.4 SECONDS (9.4-12.5) H 05/31/17 19:20 INR 1.40 (0.93-1.08) H 05/31/17 19:20 APTT 29.6 Seconds (25.1-36.5) 05/31/17 19:20 - Constitutional Appears: No Acute Distress - Eye Exam Eye Exam: Normal appearance - ENT Exam ENT Exam: Mucous Membranes Moist - Respiratory Exam Respiratory Exam: NORMAL BREATHING PATTERN Additional comments: bibasilar crackles - Cardiovascular Exam Cardiovascular Exam: REGULAR RHYTHM, +S1, +S2 - GI/Abdominal Exam GI & Abdominal Exam: Soft, Normal Bowel Sounds - Extremities Exam Extremities Exam: Pedal Edema - Neurological Exam Neurological Exam: Alert, Awake, Oriented x3 Assessment and Plan - Assessment and Plan (Free Text) Assessment: 82 year old male PMHx severe pulmonary hypertension, hypertension, CAD, DM II, CHF s/p CABG and aortic valve replacement (bioprosthetic) transferred to ICU s/ p TIRE BAGGER for respiratory distress. Currently awake, alert, on BIPAP Labs with worsening renal function, renal following. K 5.7 Cr uptrending Recommend: - cont with BIPAP - Solumedrol 20mg Q12hr IV - Follow up Pulmonary - Milrinone - BP control, afterload reduction - Continue lipitor - hold Lasix - Kayex 30g x 1 - would hold off IVF given severe Pulm HTN - Needs IV prostacyclin, Inahled NO - awaiting trasnfer to [place] [facility] - Follow up cardiology - Cont with Revatio - GI ppx - DVT ppx - monitor in MICU
--- NOTE | 2017-06-16 11:21 | PN ---
DATE: 06/16/2017 REASON FOR CONSULTATION AND FOLLOWUP: Cardiac evaluation, pulmonary hypertension, CAD, one-vessel CABG, status post aortic valve replacement, bioprosthetic aortic valve replacement, mitral valve repair, respiratory distress, and severe pulmonary hypertension. SUBJECTIVE: The patient denies any chest pain, shortness or breath, or any palpitation. Lying flat in the bed. PHYSICAL EXAMINATION: VITAL SIGNS: As follows: Temperature afebrile, heart rate 95, blood pressure 119/53. HEENT: PERRLA. Extraocular muscles intact. NECK: Supple. No carotid bruits or thyromegaly. CHEST: Clear to auscultation. HEART: S1 and S2. Regular. ABDOMEN: Soft. EXTREMITIES: Clubbing and cyanosis negative. LABORATORY DATA: WBC 10.4, hemoglobin 9.1, hematocrit 27.0, and platelet count 154. Chemistry shows sodium 129, potassium 5.7, chloride 91, carbon dioxide 25, anion gap of 15, BUN 32, creatinine 3.4. IMPRESSION: Acute kidney injury, mild chronic kidney disease, severe pulmonary hypertension, hyperkalemia, hyponatremia, right heart failure, pulmonary artery pressure by invasive 103 by right heart catheterization and by echocardiogram 151, status post one-vessel coronary artery bypass grafting, status post bioprosthetic aortic valve regurgitation, status post mitral valve repair. RECOMMENDATIONS: Cautious diuresis, not to overdiurese to get into complete renal failure, cutdown dose of Primacor to prevent the toxicity because the patient's creatinine is clearance. We will cutdown to 0.2. We will give Kayexalate aggressive treatment. As mentioned with previous note, the patient is not primarily left heart failure, preserved LV function, ejection fraction of 55%, but the patient is predominantly right heart failure and pulmonary hypertension, needs to be treated aggressively now with Revatio, consider prostacyclin inhibitors with Flolan and inhalation. We will give Kayexalate and we will cutdown the dose of Primacor to 0.2 to prevent renal toxicity because of renal insufficiency. Guru Sosa MD
[2017-06-16] MEDS: Insulin Lispro 1 UNITS/0.01 ML SC SCH ×2 (11:55→18:08)
[2017-06-16] MEDS: Insulin Lispro (humaLOG) LOW Coverage SC SCH ×3 (11:55→22:33)
--- NOTE | 2017-06-16 11:55 | CP.PCM.PN ---
Subjective - Date & Time of Evaluation Date of Evaluation: 06/16/17 Time of Evaluation: 11:52 - Subjective Subjective: RENAL FOLLOW UP S: back on bipap and uncomfortable o: pe: vs reviewed as below gen: mild respiratory distress distress sclera anicteric op: poor dentition neck: supple cv: +s1+s2 lungs: poor air movement throughout abd: soft ext: trace edema neuro: follows commands psych: agitated skin no rash ARF/ Hyperphosphatemia/ Acute on Chronic systolic heart failure/ Anemia / Hyperkalemia/ Diabetic kidney disease/ Pulmonary hypertension/ hyponatremia/ hypermagnesemia plan: NELSON likely due to cardiorenal. UA w/ very low sodium suggesting hypoperfusion from heart failure/RV failure. Limited options. 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 Plans to transfer to [facility] for possible other therapies for severe pHTN. Lasix on hold today. Avoiding giving fluids given his respiratory staus. May require intubation. kayexalate given discussed w/ ICU attending Objective - Vital Signs/Intake and Output Vital Signs (last 24 hours): Temp Pulse Resp BP Pulse Ox 98 F 103 H 48 H 145/63 97 06/16/17 04:00 06/16/17 11:19 06/16/17 11:00 06/16/17 11:00 06/16/17 11:00 Intake and Output: 06/16/17 06/16/17 06:59 18:59 Intake Total 436 Output Total 450 Balance -14 - Medications Medications: Current Medications Alprazolam (Xanax) 0.25 mg PO BID PRN; Protocol PRN Reason: Anxiety Stop: 06/22/17 18:01 Atorvastatin Calcium (Lipitor) 40 mg PO DAILY [facility] Last Admin: 06/16/17 09:59 Dose: 40 mg Bupropion HCl (Wellbutrin) 75 mg PO BID [facility] Last Admin: 06/16/17 09:53 Dose: 75 mg Doxycycline Hyclate (Doryx) 100 mg PO Q12 [facility] PRN Reason: Protocol Stop: 06/22/17 22:01 Last Admin: 06/16/17 09:53 Dose: 100 mg Enoxaparin Sodium (Lovenox) 30 mg SC DAILY [facility] PRN Reason: Protocol Last Admin: 06/16/17 09:54 Dose: 30 mg Fluticasone Propionate (Flonase) 1 actuation NS DAILY [facility] Last Admin: 06/16/17 09:59 Dose: 1 spr Gabapentin (Neurontin) 100 mg PO DAILY [facility] Last Admin: 06/16/17 09:53 Dose: 100 mg Home Med (Home Med) 1 unit PO DAILY [facility] Last Admin: 06/16/17 09:59 Dose: 1 unit Milrinone Lactate/Dextrose (Primacor 20mg/100ml D5w) 100 mls @ 4.297 mls/hr IV .[id number] PRN; Protocol; 0.2 MCG/KG/MIN PRN Reason: TITRATE PER MD ORDER Insulin Detemir (Levemir) 20 unit SC HS [facility] Insulin Human Lispro (Humalog Low) 0 units SC ACHS [facility] PRN Reason: Protocol Insulin Human Lispro (Humalog) 6 units SC AC [facility] Ipratropium [place] (Atrovent) 0.5 mg IH [id number] [facility] Last Admin: 06/16/17 07:07 Dose: 0.5 mg Levalbuterol HCl (Xopenex) 1.25 mg IH [id number] [facility] Last Admin: 06/16/17 07:07 Dose: 1.25 mg Levalbuterol HCl (Xopenex) 0.63 mg IH [id number] PRN PRN Reason: Shortness of Breath Last Admin: 06/15/17 15:07 Dose: 0.63 mg Methylprednisolone (Solu-Medrol) 20 mg IVP Q8 [facility] Last Admin: 06/16/17 05:21 Dose: 20 mg Metoprolol Tartrate (Lopressor) 12.5 mg PO Q12 [facility] Last Admin: 06/16/17 09:53 Dose: 12.5 mg Atomoxetine Hcl [ (Strattera] 60 Mg) 60 mg PO DAILY [facility] Last Admin: 06/16/17 09:55 Dose: Not Given Nystatin (Nystop Topical Powder) 0 gm TOP DAILY [facility] Last Admin: 06/16/17 09:59 Dose: 1 units Pantoprazole Sodium (Protonix Ec Tab) 40 mg PO DAILY [facility] Last Admin: 06/16/17 09:53 Dose: 40 mg Polyethylene Glycol (Miralax) 17 gm PO DAILY [facility] Last Admin: 06/16/17 09:54 Dose: 17 gm Sevelamer HCl (Renagel) 1,600 mg PO TID [facility] Last Admin: 06/16/17 09:52 Dose: 1,600 mg Sildenafil Citrate (Revatio) 20 mg PO Q8 [facility] Last Admin: 06/16/17 05:22 Dose: 20 mg Sodium Chloride ([place] Nasal [place]) 0 ml NS TID PRN PRN Reason: Nasal congestion Zolpidem Tartrate (Ambien) 5 mg PO HS PRN; Protocol PRN Reason: Insomnia Last Admin: 06/15/17 21:07 Dose: 5 mg - Labs Labs: 06/16/17 05:00 06/16/17 05:00 PT 15.4 SECONDS (9.4-12.5) H 05/31/17 19:20 INR 1.40 (0.93-1.08) H 05/31/17 19:20 APTT 29.6 Seconds (25.1-36.5) 05/31/17 19:20
--- NOTE | 2017-06-16 13:48 | PN ---
DATE: 06/16/2017 SUBJECTIVE: The patient is in bed, in no acute distress, nontoxic. PHYSICAL EXAMINATION: VITAL SIGNS: Temperature is 98, blood pressure is 120/70, respiratory rate 16. HEENT: Unremarkable. NECK: Supple. LUNGS: Have decreased breath sounds. HEART: Normal S1, S2. ABDOMEN: Soft. LABORATORY DATA: Reveals a white count of 10,000, hemoglobin of 9, platelets of 154. Chemistries reveals a BUN of 120, creatinine of 3.4. Urinalysis is noted and microbiology reveals the blood cultures are negative. Urine cultures are negative and review of orders reveals the patient to be on p.o. doxycycline alone, Solu-Medrol. The patient had a chest x-ray this yesterday morning, diffuse airspace disease representing pulmonary edema and congestive heart failure. ASSESSMENT/PLAN: A 82-year-old male with history of cerebrovascular accident, asthma, congestive heart failure, history of endocarditis, prostate cancer, history of peripheral neuropathy, hypertension, admitted this admission with severe sepsis secondary to hospital-acquired, healthcare-associated pneumonia with acute diastolic congestive heart failure on top of chronic congestive heart failure with acute kidney injury. The patient's cultures are negative, normal procalcitonin now most consistent with congestive heart failure with negative cultures on day #5 of doxycycline, and the patient has a history of aortic valve replacement, mitral regurgitation and severe pulmonary hypertension, acute kidney injury. We will discontinue the doxycycline after today's last dose, and we will follow with you. The patient is at risk for developing nosocomial infections. Segun Cavazos MD
--- NOTE | 2017-06-16 13:52 | CP.PCM.PN ---
<Geraldo Paredes - Last Filed: 06/16/17 13:47> Subjective - Date & Time of Evaluation Date of Evaluation: 06/16/17 Time of Evaluation: 11:00 - Subjective Subjective: Podiatry Progress Note - Dr. Bates/Dr. Kendall 82 year old male patient seen and evaluated at bedside for 4th interdigit ulceration. Patient is seen resting comfortably in bed, in NAD, and AA0x3. Patient denies acute overnight events. is seen during bedside during visitation. Patient reports no pain to the LE. Patient has no other pedal complaints at this time. Patient denies n/v/sob/cp/chills/f or d. Objective - Vital Signs/Intake and Output Vital Signs (last 24 hours): Temp Pulse Resp BP Pulse Ox 98 F 103 H 48 H 145/63 97 06/16/17 04:00 06/16/17 11:19 06/16/17 11:00 06/16/17 11:00 06/16/17 11:00 Intake and Output: 06/16/17 06/16/17 06:59 18:59 Intake Total 436 Output Total 450 Balance -14 - Medications Medications: Current Medications Alprazolam (Xanax) 0.25 mg PO BID PRN; Protocol PRN Reason: Anxiety Stop: 06/22/17 18:01 Atorvastatin Calcium (Lipitor) 40 mg PO DAILY [facility] Last Admin: 06/16/17 09:59 Dose: 40 mg Bupropion HCl (Wellbutrin) 75 mg PO BID [facility] Last Admin: 06/16/17 09:53 Dose: 75 mg Doxycycline Hyclate (Doryx) 100 mg PO Q12 [facility] PRN Reason: Protocol Stop: 06/22/17 22:01 Last Admin: 06/16/17 09:53 Dose: 100 mg Enoxaparin Sodium (Lovenox) 30 mg SC DAILY [facility] PRN Reason: Protocol Last Admin: 06/16/17 09:54 Dose: 30 mg Fluticasone Propionate (Flonase) 1 actuation NS DAILY [facility] Last Admin: 06/16/17 09:59 Dose: 1 spr Gabapentin (Neurontin) 100 mg PO DAILY [facility] Last Admin: 06/16/17 09:53 Dose: 100 mg Home Med (Home Med) 1 unit PO DAILY [facility] Last Admin: 06/16/17 09:59 Dose: 1 unit Milrinone Lactate/Dextrose (Primacor 20mg/100ml D5w) 100 mls @ 4.297 mls/hr IV .[id number] PRN; Protocol; 0.2 MCG/KG/MIN PRN Reason: TITRATE PER MD ORDER Insulin Detemir (Levemir) 20 unit SC HS [facility] Insulin Human Lispro (Humalog Low) 0 units SC ACHS [facility] PRN Reason: Protocol Last Admin: 06/16/17 11:55 Dose: Not Given Insulin Human Lispro (Humalog) 6 units SC AC [facility] Last Admin: 06/16/17 11:55 Dose: 6 units Ipratropium [place] (Atrovent) 0.5 mg IH [id number] [facility] Last Admin: 06/16/17 13:09 Dose: 0.5 mg Levalbuterol HCl (Xopenex) 1.25 mg IH [id number] [facility] Last Admin: 06/16/17 13:09 Dose: 1.25 mg Levalbuterol HCl (Xopenex) 0.63 mg IH [id number] PRN PRN Reason: Shortness of Breath Last Admin: 06/15/17 15:07 Dose: 0.63 mg Methylprednisolone (Solu-Medrol) 20 mg IVP Q8 [facility] Last Admin: 06/16/17 13:00 Dose: 20 mg Metoprolol Tartrate (Lopressor) 12.5 mg PO Q12 [facility] Last Admin: 06/16/17 09:53 Dose: 12.5 mg Atomoxetine Hcl [ (Strattera] 60 Mg) 60 mg PO DAILY [facility] Last Admin: 06/16/17 09:55 Dose: Not Given Nystatin (Nystop Topical Powder) 0 gm TOP DAILY [facility] Last Admin: 06/16/17 09:59 Dose: 1 units Pantoprazole Sodium (Protonix Ec Tab) 40 mg PO DAILY [facility] Last Admin: 06/16/17 09:53 Dose: 40 mg Polyethylene Glycol (Miralax) 17 gm PO DAILY [facility] Last Admin: 06/16/17 09:54 Dose: 17 gm Sevelamer HCl (Renagel) 1,600 mg PO TID [facility] Last Admin: 06/16/17 13:00 Dose: 1,600 mg Sildenafil Citrate (Revatio) 20 mg PO Q8 [facility] Last Admin: 06/16/17 13:00 Dose: 20 mg Sodium Chloride ([place] Nasal [place]) 0 ml NS TID PRN PRN Reason: Nasal congestion Zolpidem Tartrate (Ambien) 5 mg PO HS PRN; Protocol PRN Reason: Insomnia Last Admin: 06/15/17 21:07 Dose: 5 mg - Labs Labs: 06/16/17 05:00 06/16/17 05:00 PT 15.4 SECONDS (9.4-12.5) H 05/31/17 19:20 INR 1.40 (0.93-1.08) H 05/31/17 19:20 APTT 29.6 Seconds (25.1-36.5) 05/31/17 19:20 - Constitutional Appears: Well, Non-toxic, No Acute Distress - Extremities Exam Additional comments: VASC: DP pulses palpable 2/4 b/l. PT pulses nonpalpable secondary to edema. 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 +2 pitting edema noted to bilateral LE. DERM: Very mild maceration noted to right 4th interspace, decreased since previous visit. Erythema noted to right 5th digit with small pinpoint ulceration on medial aspect of digit - no drainage, no purulence, no fluctuance , no ascending cellulitis, no probe to bone NEURO: Protective sensation grossly intact ORTHO: Mild pain on palpation of the 5th digit on the right foot. Pain upon ROM right foot 5th digit. - Neurological Exam Neurological Exam: Alert, Awake, Oriented x3 - Psychiatric Exam Psychiatric exam: Normal Affect, Normal Mood Assessment and Plan - Assessment and Plan (Free Text) Assessment: 82 year old male with ulceration to right 5th digit Plan: Patient seen and evaluated at bedside Discussed with attending, Dr. Kendall/Dr. Bates Vitals, labs, chart reviewed (Afebrile, WBC=10.4 on 06/16/17) 4th interdigital ulceration is stable- no clinical signs of infection Continue local wound care - QD betadine and nystatin powder without dressing Continue elevation for edema Podiatry will continue to follow patient while in house <Kath Kendall - Last Filed: 06/19/17 14:25> Objective - Vital Signs/Intake and Output Vital Signs (last 24 hours): Temp Pulse Resp BP Pulse Ox 97.8 F 109 H 25 H 134/55 L 97 06/19/17 12:00 06/19/17 14:00 06/19/17 14:00 06/19/17 12:00 06/19/17 14:00 Intake and Output: 06/19/17 06/19/17 06:59 18:59 Intake Total 200 Output Total 800 Balance -600 - Medications Medications: Current Medications Alprazolam (Xanax) 0.25 mg PO BID PRN; Protocol PRN Reason: Anxiety Stop: 06/22/17 18:01 Last Admin: 06/18/17 09:44 Dose: 0.25 mg Atorvastatin Calcium (Lipitor) 40 mg PO DAILY [facility] Last Admin: 06/19/17 09:13 Dose: 40 mg Enoxaparin Sodium (Lovenox) 30 mg SC DAILY [facility] PRN Reason: Protocol Last Admin: 06/19/17 09:15 Dose: 30 mg Fluticasone Propionate (Flonase) 1 actuation NS DAILY [facility] Last Admin: 06/19/17 09:16 Dose: 1 spr Gabapentin (Neurontin) 100 mg PO DAILY [facility] Last Admin: 06/19/17 09:14 Dose: 100 mg Glipizide (Glucotrol) 10 mg PO [id number],[id number] [facility] Last Admin: 06/19/17 08:30 Dose: 10 mg Home Med (Home Med) 1 unit PO DAILY [facility] Last Admin: 06/19/17 09:17 Dose: 1 unit Milrinone Lactate/Dextrose (Primacor 20mg/100ml D5w) 100 mls @ 4.297 mls/hr IV .[id number] PRN; Protocol; 0.2 MCG/KG/MIN PRN Reason: TITRATE PER MD ORDER Last Admin: 06/18/17 22:44 Dose: 0.2 mcg/kg/min, 4.297 mls/hr Iron Sucrose 200 mg/ Sodium (Chloride) 110 mls @ 110 mls/hr IVPB ONCE ONE Stop: 06/20/17 10:59 Insulin Detemir (Levemir) 10 unit SC [facility] Insulin Human Lispro (Humalog Low) 0 units SC ACHS [facility] PRN Reason: Protocol Last Admin: 06/19/17 12:49 Dose: Not Given Insulin Human Lispro (Humalog) 3 units SC ACHS [facility] Last Admin: 06/19/17 13:05 Dose: 3 units Ipratropium [place] (Atrovent) 0.5 mg IH [id number] [facility] Last Admin: 06/19/17 13:34 Dose: 0.5 mg Levalbuterol HCl (Xopenex) 1.25 mg IH [id number] [facility] Last Admin: 06/19/17 13:34 Dose: 1.25 mg Levalbuterol HCl (Xopenex) 0.63 mg IH [id number] PRN PRN Reason: Shortness of Breath Last Admin: 06/15/17 15:07 Dose: 0.63 mg Methylprednisolone (Solu-Medrol) 20 mg IVP DAILY [facility] Last Admin: 06/19/17 09:15 Dose: 20 mg Atomoxetine Hcl [ (Strattera] 60 Mg) 60 mg PO DAILY [facility] Last Admin: 06/19/17 09:18 Dose: Not Given Nystatin (Nystop Topical Powder) 0 gm TOP DAILY [facility] Last Admin: 06/19/17 09:17 Dose: 1 applic Pantoprazole Sodium (Protonix Ec Tab) 20 mg PO ACB [facility] Last Admin: 06/19/17 08:30 Dose: 20 mg Polyethylene Glycol (Miralax) 17 gm PO DAILY [facility] Last Admin: 06/19/17 09:15 Dose: 17 gm Polysaccharide Iron Complex (Ferrex-150) 150 mg PO DAILY [facility] Last Admin: 06/19/17 09:13 Dose: 150 mg Sevelamer HCl (Renagel) 800 mg PO TID [facility] Last Admin: 06/19/17 13:07 Dose: 800 mg Sildenafil Citrate (Revatio) 20 mg PO Q8 [facility] Last Admin: 06/19/17 13:07 Dose: 20 mg Sodium Chloride ([place] Nasal [place]) 0 ml NS TID PRN PRN Reason: Nasal congestion Zolpidem Tartrate (Ambien) 5 mg PO HS PRN; Protocol PRN Reason: Insomnia Last Admin: 06/16/17 23:05 Dose: 5 mg - Labs Labs: 06/19/17 05:30 06/19/17 05:30 PT 15.4 SECONDS (9.4-12.5) H 05/31/17 19:20 INR 1.40 (0.93-1.08) H 05/31/17 19:20 APTT 29.6 Seconds (25.1-36.5) 05/31/17 19:20
--- NOTE | 2017-06-16 14:05 | PN ---
DATE: 06/15/2017 SUBJECTIVE: The patient was in ICU. He has some acute respiratory distress, was wheezing and extreme short of breath. The patient become anxious, desaturating in the 80s and his pressure went up. PHYSICAL EXAMINATION: VITAL SIGNS: His temperature he was afebrile at 98, his heart rate went up to 101 to 110, sinus tachy, blood pressure was also elevated 146/72, respiratory rate was 36, and his saturation was 94% on BiPAP, which increased to 14 and 7. The patient also was given oxygen 100% and was given Solu-Medrol IV and nebulizer treatment. Also was given dose of Xanax and he improved. Becomes more comfortable. Saturating went up to 93% to 95%, sometimes 97%. The patient feels better, less sweating and less anxious. HEAD AND NECK: No thyromegaly. CHEST: Diminished breath sounds and wheezing bilateral. CARDIAC: First sound and second sound normal and regular. Systolic murmur across the aortic area. ABDOMEN: Soft and nontender. EXTREMITIES: Forefeet pedal edema. NEUROLOGIC: Normal. LABORATORY DATA: As follows: His white count was 11.2, hemoglobin is 9, hematocrit 26.8, and platelets is 154. The patient also had sodium of 129, potassium 5.3, chloride 90, bicarbonate 25, BUN 110, creatinine went up from 2-3. The patient's blood sugar was 241, phosphorus 7, magnesium 2.4, otherwise liver enzymes were normal. IMPRESSION AND PLAN: 1. Acute respiratory distress, combination of pulmonary hypertension, the patient is currently getting Letairis 5 mg everyday and Revatio 20 mg t.i.d., waiting for the other one. Also the patient is getting Primacor IV for left ventricle and right ventricle function stimulation. The patient was seen also by Dr. Bustos discussing with him. He recommend IV prostacyclin, which we do not have and we will transfer the patient to [facility]. He already made the communication, hopefully, will do it within 24 hours. 2. Congestive heart failure, combined left and right. We will continue current therapy milrinone, oxygen, BiPAP, nebulizer treatment, and we will follow up clinically. 3. Acute renal failure. I spoke with the funeral planning counselor. I think it is more due to Lasix right ventricular dysfunction and starting of the Revatio, sometimes kidney function gets abnormal. The patient also had prerenal due to diuretics. He also had few days ago CAT scan, could be or combined contributing to the acute renal failure. We will monitor his functions. May hold Lasix. No IV fluid will be given at this time. May continue current therapy. 4. Possible pneumonia. The patient is getting doxycycline. I spoke with Dr. Cavazos. We will monitor his conditions. 5. Depression and anxiety. Continue Xanax. Continue Strattera for attention deficits. Continue Wellbutrin. We will follow up clinically. Discussed with Dr. Bustos. Cardiology discussed with the son and informed him about the transferring the patient. was also was next to the bedside of the patient, so we will continue current therapy. Continue GI and DVT prophylaxis. Followup clinically. Arya Booker MD
--- NOTE | 2017-06-16 19:59 | CON ---
DATE: ENDOCRINOLOGY CONSULT LOCATION: In ICU 128, room 2. HISTORY OF PRESENT ILLNESS: This is an 82-year-old male admitted with congestive heart failure and developed acute respiratory distress, currently on the BiPAP and started on IV steroid therapy with supervening hyperglycemic accelerations and is now being referred for diabetic evaluation and management. PAST MEDICAL HISTORY: History of type 2 diabetes, currently on metformin, metformin given as 850 mg b.i.d., history of hypertension and dyslipidemia, history of diabetic polyneuropathy and nephropathy with underlying chronic kidney disease. Also the prior history of aortic and mitral valve replacement and repair with underlying coronary artery disease and pulmonary hypertension. He has had previous admissions for congestive heart failure as noted. PAST SURGICAL HISTORY: Has a prior left femoral neck fracture with open reduction internal fixation and as mentioned above has had coronary artery disease with a prior coronary artery bypass graft surgery followed by aortic and mitral valve repair as noted. FAMILY HISTORY: Positive for diabetes and hypertension. SOCIAL HISTORY: The patient has supportive family. No known substance use. REVIEW OF SYSTEMS: As mentioned above. Admits to generalized body weakness with easy fatigability and tiredness and suboptimal energy level. Also admits to precordial chest pain with progressive shortness of breath, initially on exertion and then at rest with paroxysmal nocturnal dyspnea. His oral intake has been variable with nausea, dyspepsia and vague upper abdominal pains and no recent alterations of bowel and urinary patterns. PHYSICAL EXAMINATION: GENERAL: This is an average built male in no apparent distress with a blood pressure of 150/90, pulse was 70 beats per minute, regular, temperature 99, respirations 20, height is 5/5, weight is 200 pounds. HEENT: Head normocephalic. Eyes anicteric with pink conjunctivae. Funduscopy is not possible at this time. Ears, nose and throat; otherwise normal. NECK: Supple. Thyroid gland is normal in size. No carotid bruits or cervical adenopathy. CARDIOPULMONARY: Has an adynamic precordium. S1, S2 is rapid and regular. LUNGS: Clear to auscultation. Showed bibasilar rales and scattered rhonchi as noted. ABDOMEN: Flat, soft with positive bowel sounds. EXTREMITIES: There is +1 bipedal edema. Pulses are +2 bilaterally. LABORATORY DATA: The chemistry showed a BUN of 110, sodium 129, potassium 5.3, chloride 90, CO2 25, glucose 331 and creatinine 3.0. His glucose levels have ranged from 134-245 and 320 mg/dL. ASSESSMENT: This is an 82-year-old male with uncontrolled and decompensated type 2 insulin-requiring diabetes, presenting here with congestive heart failure and sudden onset of acute respiratory distress with acute exacerbation of chronic obstructive pulmonary disease, currently on IV steroid therapy with supervening hyperglycemic accelerations and should resolve spontaneously as the IV steroids are tapered down. PLAN OF MANAGEMENT: The patient will definitely not need any metformin at this time especially with the underlying renal insufficiency and we will switch him over to a basal and bolus insulin drug combination to optimize metabolic control. This insulin regimen will be given only for inpatient diabetic management because of the intercurrent steroid therapy as given. The patient do well on oral hypoglycemic therapy on the outpatient as indicated. We will start him with Levemir given as 20 units subcu at bedtime daily to start tonight. We will also add Humalog given as 6 units subcu t.i.d. before meals to start at lunch time today as ordered. We will modify the coverage scale to obviate hypoglycemia and detailed orders have been given. We will follow and advise accordingly. Julienne Mendoza MD
--- NOTE | 2017-06-16 21:27 | PN ---
DATE: 06/16/2017 SUBJECTIVE: This patient was seen and evaluated earlier. The patient was at bedside. PHYSICAL EXAMINATION: VITAL SIGNS: Temperature 98, pulse 103, blood pressure is 145/63. HEENT: Atraumatic. Anicteric. NECK: Supple. HEART: S1, S2 heard. LUNGS: Reduced air entry at the basis. ABDOMEN: Softly distended. EXTREMITIES: Mild edema present. LABORATORY DATA: Hemoglobin 9.2, hematocrit 27, WBC 10.4, platelets 154. Sodium 129, potassium 5.7, BUN 120, creatinine 3.0. IMPRESSION: This is an 82-year-old patient with severe pulmonary hypertension, valvular heart disease, status post aortic valve replacement, mitral valve repair on Primacor IV and the patient is being considered for transfer to [facility] for possible IV prostacyclin therapy. Possible pneumonia on doxycycline. The patient has abnormal liver function tests and is stable. Common bile duct normal. Patient has Gallstones CBD normal.. PLAN: Follow up with the LFTs. Continue the present management. Thank you very much for allowing us to participate in the care of the patient. Karly Fraser MD AMALIA
[2017-06-16] MEDS: Insulin Detemir 100 units/ml Vial (Levemir) SC SCH (22:36)
--- NOTE | 2017-06-16 23:59 | PN ---
PULMONARY PROGRESS NOTE DATE: 06/16/2017 REFERRING PHYSICIAN: Arya Booker MD SUBJECTIVE: The patient is lying in the bed on nasal cannula oxygen, on and off requires BiPAP, short of breath on minimal exertion. No chest pain. No nausea. No vomiting. No diarrhea. No leg pain. No leg swelling. OBJECTIVE GENERAL: In mild distress secondary to short of breath. VITAL SIGNS: Temperature is 98, heart rate is 94, respiratory rate is 22, blood pressure is 127/53, pulse oximetry is 94% on nasal cannula. HEENT: Moist mucous membranes. Crowded airway. Mallampati score is IV. NECK: Supple. No JVD. LUNGS: Have a few scattered rhonchi. HEART: S1, S2. ABDOMEN: Soft, nontender, nondistended. EXTREMITIES: No edema. NEUROLOGIC: Awake, alert. Follows simple commands. MEDICATIONS: He is on Ambien 5 mg h.s. p.r.n.; Atrovent inhaled q.6 hours; doxycycline 100 mg twice a day; Flonase one spray to each nostril daily; insulin coverage; Levemir 20 units subcu h.s.; Lipitor 40 mg daily; metoprolol tartrate 12.5 mg twice a day; Lovenox 30 mg daily; MiraLax 17 g daily; Neurontin 100 mg daily; Primacor IV drip; Protonix 40 mg daily; Renagel 3 times a day; Revatio 20 mg q.8 hours; Solu-Medrol 20 mg q.8 hours; Wellbutrin 75 mg q.12 hours; Xanax 0.25 mg twice a day p.r.n.; Xopenex inhaled q.6 hours; also getting Letairis 5 mg daily. LABORATORY DATA: Shows hemoglobin 9.2, hematocrit 27.0, WBC 10.4, platelet count is 154. Sodium 129, potassium 4.7, chloride 91, bicarbonate 25, BUN 120, creatinine 3.4, glucose 224, calcium 9.3, phosphorus 6.9, magnesium 2.5, AST 27, ALT 44, alkaline phosphatase is 120, total protein 6.2. Microbiology, blood culture and urine culture, there is no growth. IMPRESSION AND PLAN: Severe pulmonary hypertension with right heart failure, history of valvular heart disease, good left ventricular function with mild diastolic dysfunction, diabetes, renal failure. Case discussed with the senior net developer, spoke to nursing staff, also spoke to the patient's at bedside, all the questions were answered, call made to [facility], Pulmonary Critical Care fellow, still waiting for the bed availability. I believe, clinically, the patient will benefit from IV prostacyclin, also nitric oxide could be tried. For now, I will continue Pravachol, continue Revatio, continue Letairis. Decrease Solu-Medrol to 20 q.12 hour give IV fluids. May continue to use noninvasive ventilation on an as needed basis. Followup labs in the morning, overall poor prognosis. Clinical care time spent more than 35 minutes. Thank you and we will follow with you. Guru Bustos MD
--- NOTE | 2017-06-17 00:33 | PN ---
SUBJECTIVE: Patient seems comfortable today. He is able to talk. He had lunch. Patient seems better than yesterday saturating in the 95%, even 96% on BiPAP. Son is a doctor on the bedside. His is next to him. Patient is comfortable, in no distress. He did not have any Lasix today and seems doing well currently. PHYSICAL EXAMINATION VITAL SIGNS: His temperature 98, heart rate 96, blood pressure 131/51, respirations 21, saturating 97%, 40% FiO2. HEAD AND NECK: Normal. No JVD. No thyromegaly. CHEST: Clear. CARDIAC: First sound and second sound normal. ABDOMEN: Soft and nontender. EXTREMITIES: No edema except pedal edema in the forefoot area. NEUROLOGIC: Normal. LABORATORY DATA: White count 10.4, hemoglobin 9.2, hematocrit 27, platelets 154. His chemistry; sodium 129, potassium 5.7, chloride 91, bicarbonate 25, BUN 120, creatinine 3.4. His blood sugar 224, phosphorus 6.9, magnesium 2.5, rest of the liver function is normal. IMPRESSION AND PLAN: 1. Acute respiratory failure, multifactorial, secondary to pulmonary hypertension, chronic obstructive pulmonary disease, obstructive sleep apnea and congestive heart failure. Continue current BiPAP therapy. Continue oxygen. Follow up clinically. Patient is getting Solu-Medrol, getting Revatio, getting Letairis for severe pulmonary hypertension. We then hold off on Lasix. Continue IV milrinone. Continue BiPAP. Continue deep venous thrombosis and gastrointestinal prophylaxis for now. 2. Diabetes, probably high secondary to steroids. Continue Endocrine consult on the case. Continue insulin, Levemir 20 plus high scale insulin coverage. We will follow up clinically. 3. Patient has a history of anxiety, depression. Continue Xanax p.r.n., Strattera and continue current therapy. 4. Acute renal failure, multifactorial, pre-renal. Continue current therapy. We will hold off on Lasix. Repeat labs in the morning. Patient may be transferred to [facility] for IV prostacyclin. At this time, we will continue current therapy. Patient is making urine. Today, he had urine output 450 urethra Johnson and also another time he had 450 without any Lasix in one shift. We will continue monitor. Continue current therapy. Follow up clinically. Arya Booker MD
[2017-06-17] MEDS: Milrinone 20mg/100ml D5W 100 ML IV PRN ×2 (02:07→23:15)
[2017-06-17] MEDS: Ipratropium 0.02% Inhal Soln (0.5 mg/2.5 ml) UD IH SCH ×4 (02:22→20:20)
[2017-06-17] MEDS: Levalbuterol 1.25 MG/3 ML Inhal Soln UD IH SCH ×4 (02:22→20:20)
[2017-06-17] MEDS: Sildenafil 20 MG TAB PO SCH ×3 (06:28→22:00)
[2017-06-17 07:21] LABS: HEMOGLOBIN 8.8 g/dL (14.0-18.0); MEAN CELL VOLUME 89.8 fl (80.0-105.0); MEAN CORPUSCULAR HEMOGLOBIN 30.9 pg (25.0-35.0); MEAN CORPUSCULAR HGB CONC 34.4 g/dl (31.0-37.0); MEAN PLATELET VOLUME 11.8 fl (7.0-11.0); RBC 2.85 10^6/uL (3.5-6.1); RED CELL DISTRIBUTION WIDTH 13.5 % (11.5-14.5); WHITE BLOOD COUNT 7.5 10^3/ul (4.5-11.0)
[2017-06-17] MEDS: Insulin Lispro (humaLOG) LOW Coverage SC SCH ×4 (08:09→23:28)
[2017-06-17 08:11] LABS: ALB/GLOB RATIO 1.2 (1.1-1.8); ALBUMIN 3.2 g/dL (3.0-4.8)
[2017-06-17] MEDS: Insulin Lispro 1 UNITS/0.01 ML SC SCH ×3 (08:12→16:54)
--- NOTE | 2017-06-17 08:49 | PN ---
DATE: 06/14/2017 HOUSE DIRECTOR NOTE SUBJECTIVE: The patient is resting in bed with BiPAP and comfortable with his respiratory status. He has no complaints of chest pain. No cough. No congestion and his O2 saturation is 97% with BiPAP and O2 support. PHYSICAL EXAMINATION: VITAL SIGNS: Note that his temperature is 98.3, his pulse is 90, respirations are 24, and BP is 152/73. SKIN: Warm and dry. HEENT: Head is atraumatic, normocephalic. Eyes reactive to light. Ears, nose and throat seemed to be within normal limits. NECK: Supple. No JVD. No thyroid enlargement or lymph nodes. HEART: Has regular rate and rhythm. Normal S1 and S2. LUNGS: Reveal mild rhonchi bilaterally. ABDOMEN: Soft. Decreased bowel sounds. GENITALIA AND RECTAL: Deferred. MUSCULOSKELETAL: No joint deformities. EXTREMITIES: Reveal trace lower extremity edema. NEUROLOGIC: He seemed to be grossly intact. LABORATORY DATA: As far as his laboratories are concerned, his white count is 18.2, hemoglobin is 9.9, and hematocrit is 29.0 with platelets of 199,000. CMP is pending. Glucose is 166. IMPRESSION: This patient has severe pulmonary hypertension. He has congestive heart failure with a history of diabetes, acute renal insufficiency, and anemia. The patient has respiratory failure with hypoxia. PLAN: We will continue with BiPAP and O2 support and follow his chest x-ray and arterial blood gas closely. The patient is on doxycycline as an antibiotic. He is getting Lasix for appropriate diuresis and is on Lovenox as well. He is getting meropenem as well as milrinone. The patient is on Solu-Medrol, Wellbutrin, Xopenex and we will continue to treat aggressively along with the other consultants and the primary care doctor. Dhruv Peñaloza MD
--- NOTE | 2017-06-17 08:59 | PN ---
DATE: 06/15/2017 AIRPLANE DISPATCH CLERK NOTE SUBJECTIVE: The patient is lying in bed, comfortable this morning with BiPAP and O2 saturation is in very stable. The patient has no complaints of increased cough or congestion. No chest pain. No fever, chills, nausea, or vomiting. No diarrhea. No abdominal pain. s PHYSICAL EXAMINATION: VITAL SIGNS: Temperature is 97.9, pulse is 91, respirations are 24, and his blood pressure is 123/57, and O2 saturation is 98%. HEENT: Head is atraumatic and normocephalic. Eyes, reactive to light. Ears, nose, and throat seemed to be within normal limits. NECK: Supple. No JVD. No thyroid enlargement. No lymph nodes. HEART: Has regular rate and rhythm. Normal S1 and S2. LUNGS: Revealed decreased breath sounds bilaterally at the bases with occasional rhonchi. ABDOMEN: Soft. Decreased bowel sounds. GENITALIA: Deferred. RECTAL: Deferred. MUSCULOSKELETAL: No joint deformities. EXTREMITIES: Reveal trace lower extremity edema. NEUROLOGIC: He seemed to be grossly intact. LABORATORY DATA: As far as laboratories; chemistry is pending and CBC is pending as well. IMPRESSION: As far as my impression is concerned, this patient has severe pulmonary hypertension with history of respiratory failure with hypercapnia. The patient has history of heart failure with cardiomyopathy, and congestive heart failure, as well as, diabetes and renal insufficiency. PLAN: As far as our plan, we will continue with BiPAP and O2 support. Continue with aggressive pulmonary toilet. The patient is getting Ambien for anxiety and is on doxycycline, Flonase, Lasix for diuresis, and milrinone. He is on Solu-Medrol, as well as, Xopenex and sildenafil. We will continue to treat aggressively along with the other consultants and the primary care doctor. Dhruv Peñaloza MD
[2017-06-17] MEDS: Pantoprazole 40 mg EC Tab PO SCH (09:21)
[2017-06-17] MEDS: MethylPREDNISolone 40 mg Vial IVP SCH (09:22)
[2017-06-17] MEDS: Enoxaparin 30 mg Syringe SC SCH (09:23)
[2017-06-17] MEDS: POLYETHYLENE GLYCOL 3350 17 GM/Dose PACKET PO SCH (09:23)
[2017-06-17] MEDS: Fluticasone Nasal 50 mcg/Spray NS SCH (09:23)
[2017-06-17] MEDS: Nystatin 100,000 Units/gm Topical Pow(15 gm) TOP SCH (09:24)
[2017-06-17] MEDS: LETAIRIS 5 MG PO SCH (09:24)
--- NOTE | 2017-06-17 10:47 | PN ---
DATE: 06/15/2017 SUBJECTIVE: This patient was seen and evaluated earlier today. The patient is on BiPAP, tolerating the diet. PHYSICAL EXAMINATION: VITAL SIGNS: Temperature is afebrile, blood pressure is 115/54, pulse 95. O2 saturation 98%. HEENT: Atraumatic. Anicteric. NECK: Supple. HEART: S1 and S2 heard. LUNGS: Air entry is reduced at the bases. ABDOMEN: Soft. No tenderness. LABORATORY DATA: Hemoglobin 9.0, hematocrit 26.8, WBC is 11.2, platelets 154. Glucose 331. BUN 110, creatinine 3.0. LFTs normal. IMPRESSION: This is a 82-year-old patient with severe pulmonary hypertension, valvular heart disease, status post aortic valve replacement, mitral valve repair, has bilateral basal consolidation, pleural effusion, and now has worsening of renal function. The patient did have elevated LFTs, now normalized; history of gallstones, common bile duct normal. The patient has mild anemia. No obvious gastrointestinal blood loss. The patient is on prednisone, would continue the pantoprazole. The patient is also on Lovenox. Continue to closely followup this care. Thank you very much for allowing us to participate in the care of the patient. Karly Fraser MD
--- NOTE | 2017-06-17 11:08 | CP.PCM.PN ---
Subjective - Date & Time of Evaluation Date of Evaluation: 06/17/17 Time of Evaluation: 07:40 - Subjective Subjective: Pt seen and examined, complains of SOB, denies CP Objective - Vital Signs/Intake and Output Vital Signs (last 24 hours): Temp Pulse Resp BP Pulse Ox 97.5 F L 85 26 H 107/40 L 92 L 06/17/17 08:00 06/17/17 10:00 06/17/17 10:00 06/17/17 10:00 06/17/17 10:00 Intake and Output: 06/17/17 06/17/17 06:59 18:59 Intake Total 90 Output Total 500 Balance -410 - Medications Medications: Current Medications Alprazolam (Xanax) 0.25 mg PO BID PRN; Protocol PRN Reason: Anxiety Stop: 06/22/17 18:01 Last Admin: 06/16/17 21:11 Dose: 0.25 mg Atorvastatin Calcium (Lipitor) 40 mg PO DAILY [facility] Last Admin: 06/17/17 09:21 Dose: 40 mg Bupropion HCl (Wellbutrin) 75 mg PO BID [facility] Last Admin: 06/17/17 09:21 Dose: 75 mg Enoxaparin Sodium (Lovenox) 30 mg SC DAILY [facility] PRN Reason: Protocol Last Admin: 06/17/17 09:23 Dose: 30 mg Fluticasone Propionate (Flonase) 1 actuation NS DAILY [facility] Last Admin: 06/17/17 09:23 Dose: 1 spr Gabapentin (Neurontin) 100 mg PO DAILY [facility] Last Admin: 06/17/17 09:22 Dose: 100 mg Home Med (Home Med) 1 unit PO DAILY [facility] Last Admin: 06/17/17 09:24 Dose: 1 unit Milrinone Lactate/Dextrose (Primacor 20mg/100ml D5w) 100 mls @ 4.297 mls/hr IV .[id number] PRN; Protocol; 0.2 MCG/KG/MIN PRN Reason: TITRATE PER MD ORDER Last Admin: 06/17/17 02:07 Dose: 0.2 mcg/kg/min, 4.297 mls/hr Insulin Detemir (Levemir) [address] [facility] Last Admin: 06/16/17 22:36 Dose: Not Given Insulin Human Lispro (Humalog Low) 0 units SC [facility] PRN Reason: Protocol Last Admin: 06/17/17 08:09 Dose: Not Given Insulin Human Lispro (Humalog) 6 units SC AC [facility] Last Admin: 06/17/17 08:12 Dose: 6 units Ipratropium [place] (Atrovent) 0.5 mg IH [id number] [facility] Last Admin: 06/17/17 08:32 Dose: 0.5 mg Levalbuterol HCl (Xopenex) 1.25 mg IH [id number] [facility] Last Admin: 06/17/17 08:32 Dose: 1.25 mg Levalbuterol HCl (Xopenex) 0.63 mg IH [id number] PRN PRN Reason: Shortness of Breath Last Admin: 06/15/17 15:07 Dose: 0.63 mg Methylprednisolone (Solu-Medrol) 20 mg IVP Q12 [facility] Last Admin: 06/17/17 09:22 Dose: 20 mg Atomoxetine Hcl [ (Strattera] 60 Mg) 60 mg PO DAILY [facility] Last Admin: 06/17/17 10:13 Dose: Not Given Nystatin (Nystop Topical Powder) 0 gm TOP DAILY [facility] Last Admin: 06/17/17 09:24 Dose: 1 units Pantoprazole Sodium (Protonix Ec Tab) 40 mg PO DAILY [facility] Last Admin: 06/17/17 09:21 Dose: 40 mg Polyethylene Glycol (Miralax) 17 gm PO DAILY [facility] Last Admin: 06/17/17 09:23 Dose: 17 gm Sevelamer HCl (Renagel) 1,600 mg PO TID [facility] Last Admin: 06/17/17 09:22 Dose: 1,600 mg Sildenafil Citrate (Revatio) 20 mg PO Q8 [facility] Last Admin: 06/17/17 06:28 Dose: 20 mg Sodium Chloride ([place] Nasal Tiona) 0 ml NS TID PRN PRN Reason: Nasal congestion Zolpidem Tartrate (Ambien) 5 mg PO HS PRN; Protocol PRN Reason: Insomnia Last Admin: 06/16/17 23:05 Dose: 5 mg - Labs Labs: 06/17/17 06:20 06/17/17 06:20 PT 15.4 SECONDS (9.4-12.5) H 05/31/17 19:20 INR 1.40 (0.93-1.08) H 05/31/17 19:20 APTT 29.6 Seconds (25.1-36.5) 05/31/17 19:20 - Constitutional Appears: Well, Non-toxic, No Acute Distress - Eye Exam Eye Exam: Normal appearance - ENT Exam ENT Exam: Mucous Membranes Moist - Respiratory Exam Respiratory Exam: NORMAL BREATHING PATTERN Additional comments: bibasilar crackles - Cardiovascular Exam Cardiovascular Exam: REGULAR RHYTHM, +S1, +S2 - GI/Abdominal Exam GI & Abdominal Exam: Soft, Normal Bowel Sounds - Extremities Exam Extremities Exam: Pedal Edema - Neurological Exam Neurological Exam: Alert, Awake - Psychiatric Exam Psychiatric exam: Anxious Assessment and Plan - Assessment and Plan (Free Text) Assessment: 82 year old male PMHx severe pulmonary hypertension, hypertension, CAD, DM II, CHF s/p CABG and aortic valve replacement (bioprosthetic) transferred to ICU s/ p [place] [facility] for respiratory distress. Currently awake, alert, off BIPAP Awaiting transfer to [facility] Needs inhaled NO, Prostacyclin Recommend: - cont with BIPAP as needed - Solumedrol 20mg Q12hr IV, taper - Follow up Pulmonary - Milrinone, Leitaris - BP control, afterload reduction - Continue lipitor - hold Lasix - would hold off IVF given severe Pulm HTN - Needs IV prostacyclin, Inhaled NO - awaiting transfer to [facility] - Follow up cardiology - Cont with Revatio - GI ppx - DVT ppx - monitor in MICU
--- NOTE | 2017-06-17 12:20 | PN ---
DATE: 06/17/2017 REASON FOR EVALUATION: Cardiac evaluation, severe pulmonary hypertension, coronary artery disease, one-vessel coronary artery bypass graft status post AVR, status post mitral valve repair, severe pulmonary hypertension, and respiratory distress. SUBJECTIVE: The patient complained of mild shortness of breath. OBJECTIVE/PHYSICAL EXAMINATION: As follows: GENERAL: Mild dyspneic on CPAP. VITAL SIGNS: Afebrile, heart rate is 85, and blood pressure is 107/40. HEENT: PERRLA. Extraocular muscles are intact. NECK: Supple. No carotid bruit or thyromegaly. CHEST: Clear to auscultation. HEART: S1 and S2 regular. ABDOMEN: Soft. EXTREMITIES: Clubbing and cyanosis negative. LABORATORY DATA: Blood workup as follows: WBC of 7.5, hemoglobin of 8.8, hematocrit of 25.6, and platelet count of 135. Chemistry shows sodium of 131, potassium of 4.5, chloride of 91, carbon dioxide of 28, anion gap of 16, BUN of 30, and creatinine of 3.1. IMPRESSION: Acute kidney injury secondary to possible diuresis, preserve left ventricular function, severe pulmonary hypertension, pulmonary vascular resistance 10.6 Wood unit, pulmonary artery pressure of 101, systolic pressure of 107, so almost equalizing the pressure on the right and left side, severe aortic stenosis in the past, status post aortic valve replacement bioprosthetic status post mitral valve repair, one-vessel coronary artery bypass graft, and acute kidney injury. RECOMMENDATIONS: Yesterday dose adjusted to Primacor renal dose. Continue Revatio as blood pressure tolerated. Monitor renal function closely. Agree to hold diuretics to prevent further kidney injury. Continue DVT prophylaxis. Overall, the patient's long-term prognosis guarded. Awaiting to be transferred to [facility] (Former[facility]) for further management. Guru Sosa MD
--- NOTE | 2017-06-17 12:28 | CP.PCM.PN ---
Subjective - Date & Time of Evaluation Date of Evaluation: 06/17/17 Time of Evaluation: 09:50 - Subjective Subjective: Still on BiPAP but comfortable in bed, not in distress. No fevers. Objective - Vital Signs/Intake and Output Vital Signs (last 24 hours): Temp Pulse Resp BP Pulse Ox 97.4 F L 84 21 137/59 L 100 06/17/17 05:56 06/17/17 06:00 06/17/17 05:56 06/17/17 05:56 06/17/17 05:56 Intake and Output: 06/16/17 06/17/17 18:59 06:59 Intake Total 90 Output Total 500 Balance -410 - Medications Medications: Current Medications Alprazolam (Xanax) 0.25 mg PO BID PRN; Protocol PRN Reason: Anxiety Stop: 06/22/17 18:01 Last Admin: 06/16/17 21:11 Dose: 0.25 mg Atorvastatin Calcium (Lipitor) 40 mg PO DAILY [facility] Last Admin: 06/16/17 09:59 Dose: 40 mg Bupropion HCl (Wellbutrin) 75 mg PO BID [facility] Last Admin: 06/16/17 18:10 Dose: 75 mg Enoxaparin Sodium (Lovenox) 30 mg SC DAILY [facility] PRN Reason: Protocol Last Admin: 06/16/17 09:54 Dose: 30 mg Fluticasone Propionate (Flonase) 1 actuation NS DAILY [facility] Last Admin: 06/16/17 09:59 Dose: 1 spr Gabapentin (Neurontin) 100 mg PO DAILY [facility] Last Admin: 06/16/17 09:53 Dose: 100 mg Home Med (Home Med) 1 unit PO DAILY [facility] Last Admin: 06/16/17 09:59 Dose: 1 unit Milrinone Lactate/Dextrose (Primacor 20mg/100ml D5w) 100 mls @ 4.297 mls/hr IV .[id number] PRN; Protocol; 0.2 MCG/KG/MIN PRN Reason: TITRATE PER MD ORDER Last Admin: 06/17/17 02:07 Dose: 0.2 mcg/kg/min, 4.297 mls/hr Insulin Detemir (Levemir) 20 unit SC HS [facility] Last Admin: 06/16/17 22:36 Dose: Not Given Insulin Human Lispro (Humalog Low) 0 units SC [facility] PRN Reason: Protocol Last Admin: 06/16/17 22:33 Dose: Not Given Insulin Human Lispro (Humalog) 6 units SC AC [facility] Last Admin: 06/16/17 18:08 Dose: 6 units Ipratropium [place] (Atrovent) 0.5 mg IH [id number] [facility] Last Admin: 06/17/17 02:22 Dose: 0.5 mg Levalbuterol HCl (Xopenex) 1.25 mg IH [id number] [facility] Last Admin: 06/17/17 02:22 Dose: 1.25 mg Levalbuterol HCl (Xopenex) 0.63 mg IH [id number] PRN PRN Reason: Shortness of Breath Last Admin: 06/15/17 15:07 Dose: 0.63 mg Methylprednisolone (Solu-Medrol) 20 mg IVP Q12 [facility] Last Admin: 06/16/17 21:11 Dose: 20 mg Atomoxetine Hcl [ (Strattera] 60 Mg) 60 mg PO DAILY [facility] Last Admin: 06/16/17 09:55 Dose: Not Given Nystatin (Nystop Topical Powder) 0 gm TOP DAILY [facility] Last Admin: 06/16/17 09:59 Dose: 1 units Pantoprazole Sodium (Protonix Ec Tab) 40 mg PO DAILY [facility] Last Admin: 06/16/17 09:53 Dose: 40 mg Polyethylene Glycol (Miralax) 17 gm PO DAILY [facility] Last Admin: 06/16/17 09:54 Dose: 17 gm Sevelamer HCl (Renagel) 1,600 mg PO TID [facility] Last Admin: 06/16/17 18:09 Dose: 1,600 mg Sildenafil Citrate (Revatio) 20 mg PO Q8 [facility] Last Admin: 06/17/17 06:28 Dose: 20 mg Sodium Chloride ([place] Nasal [place]) 0 ml NS TID PRN PRN Reason: Nasal congestion Zolpidem Tartrate (Ambien) 5 mg PO HS PRN; Protocol PRN Reason: Insomnia Last Admin: 06/16/17 23:05 Dose: 5 mg - Labs Labs: 06/16/17 05:00 06/16/17 05:00 PT 15.4 SECONDS (9.4-12.5) H 05/31/17 19:20 INR 1.40 (0.93-1.08) H 05/31/17 19:20 APTT 29.6 Seconds (25.1-36.5) 05/31/17 19:20 - Constitutional Appears: Non-toxic - Head Exam Head Exam: NORMAL INSPECTION - Neck Exam Neck Exam: absent: Meningismus - Respiratory Exam Respiratory Exam: Decreased Breath Sounds - Cardiovascular Exam Cardiovascular Exam: +S1, +S2 - GI/Abdominal Exam GI & Abdominal Exam: Soft. absent: Tenderness Assessment and Plan - Assessment and Plan (Free Text) Plan: Assessment S/P severe sepsis from possible HCAP on top of acute congestive heart failure CVA asthma history of endocarditis S/P aortic valve replacement severe pulmonary HTN peripheral neuropathy prostate cancer Plan will d/c Doxycycline and monitor off antibiotics
[2017-06-17] MEDS ORDERED: Darbepoetin Alfa 60 mcg/ml Inj SC ONE (13:38)
--- NOTE | 2017-06-17 15:21 | PN ---
DATE: SUBJECTIVE: The patient is currently seen in ICU bed 2. He has BiPAP mask on. He appears to be in mild respiratory distress. There is a possible transfer to [facility] for evaluation of his severe pulmonary hypertension. MEDICATIONS: Medication list reviewed. The patient is on Ambien, Strattera, Atrovent, Flonase, insulin, Lipitor, Lovenox, MiraLax, Neurontin, Primacor, Protonix, Renagel, Revatio, Solu-Medrol, Wellbutrin, Xanax, Xopenex, and Letairis. OBJECTIVE: INTAKE AND OUTPUT: Intake 1432 and output 750. VITAL SIGNS: Blood pressure 107/40, pulse 84, respiratory rate 26, and temperature 97.5. HEENT: Exam shows him to be normocephalic, atraumatic. Conjunctivae are pale. Sclerae nonicteric. NECK: Supple. No neck vein distention. CHEST: Scattered rhonchi, scattered rales. No wheezing. CARDIOVASCULAR: Shows a regular rate and rhythm, status post aortic valve replacement, status post mitral valve repair. Positive soft holosystolic murmur left lower sternal border. No S3. No S4. No rub. ABDOMEN: Soft. Bowel sounds normal. No rebound, no guarding. No masses. EXTREMITIES: Show trace to 1+ pitting pedal edema. No cyanosis, no clubbing. NEUROLOGIC: No asterixis. No focal deficits noted. LABORATORY DATA AND IMAGING STUDIES: CBC, white blood cell count today down to 7.5, hemoglobin 8.8 slightly lower, and platelet count is 135,000. Chemistries show sodium up to 131, potassium is improved from 5.7 down to 4.5 status post Kayexalate, chloride 91, CO2 28, BUN is up to 130 on steroids, and creatinine is down to 3.1. Glucose is 266. Calcium is 9.0. Last phosphorus 6.0 with magnesium level of 2.5. Liver enzymes are normal. Albumin is 3.2. Microbiology, all cultures are negative. Renal ultrasound done shows normal kidneys. Last chest x-ray done 2 days ago showed mild CHF. ASSESSMENT: 1. Acute renal failure superimposed likely on chronic kidney disease stage II: The patient has by history diabetic nephropathy. The patient has what was felt to be significant cardiorenal syndrome with hypoperfusion and decreased cardiac output. He is currently off diuretics but continues on steroids since his BUN is higher. The patient appears to be asymptomatic from the acute rise in BUN and creatinine. There were discussions with him over the last several days about the possibility of requiring dialysis. I did not have that discussion with the patient today. 2. History of severe pulmonary hypertension: The patient is on multiple medications. There is a possible transfer to [facility] for further treatment options regarding his pulmonary hypertension. 3. Status post hyperkalemia: The patient will continue renal diet. He is status post Kayexalate, potassium is down to 4.5. 4. History of arteriosclerotic heart disease, status post coronary artery bypass graft status post aortic valve replacement, status post mitral valve repair. This appears to be stable. 5. Anemia, likely secondary to chronic kidney disease: The patient may receive erythropoietin. I will check his iron levels. 6. Secondary hyperparathyroidism: Elevated phosphorus level. The patient is on renal diet and had started binders. PLAN 1. Close renal followup for perhaps initiation of dialysis should his BUN continue to rise and the patient becomes symptomatic. It is encouraging to see this life long his creatinine level. We will try and avoid diuretics as much as possible and steroids can be tapered when able. 2. Continue present medication for severe pulmonary hypertension. 3. Continue ionotropic support for his cardiorenal syndrome, diminished cardiac output, renal hypoperfusion, and prerenal azotemia. 4. Try and avoid Kayexalate. 5. Follow accurate I's and O's and labs on a daily basis. We will try and balance I's and O's without using excessive amounts of diuretic therapy. 6. We will discuss with loss prevention detective. I have discussed the case with ICU nursing staff. Greater than 35 minutes spent in the care of this critically ill patient. Willy Keen MD
--- NOTE | 2017-06-17 16:08 | CP.PCM.PN ---
<Scottie Cerda - Last Filed: 06/17/17 16:04> Subjective - Date & Time of Evaluation Date of Evaluation: 06/17/17 Time of Evaluation: 16:05 - Subjective Subjective: Podiatry Progress Note - Dr. Bates/Dr. Kendall 82 year old male patient seen and evaluated at bedside for 4th interdigital space maceration b/l. Patient is seen resting comfortably in bed, in NAD, and AA0x3. Patient denies acute overnight events. Patient reports no pain to the LE. Patient has no other pedal complaints at this time. Patient denies n/v/sob/ cp/chills/f or d. Objective - Vital Signs/Intake and Output Vital Signs (last 24 hours): Temp Pulse Resp BP Pulse Ox 97.5 F L 81 18 121/48 L 99 06/17/17 08:00 06/17/17 14:30 06/17/17 14:30 06/17/17 14:00 06/17/17 14:30 Intake and Output: 06/17/17 06/17/17 06:59 18:59 Intake Total 90 Output Total 500 Balance -410 - Medications Medications: Current Medications Alprazolam (Xanax) 0.25 mg PO BID PRN; Protocol PRN Reason: Anxiety Stop: 06/22/17 18:01 Last Admin: 06/16/17 21:11 Dose: 0.25 mg Atorvastatin Calcium (Lipitor) 40 mg PO DAILY [facility] Last Admin: 06/17/17 09:21 Dose: 40 mg Bupropion HCl (Wellbutrin) 75 mg PO BID [facility] Last Admin: 06/17/17 09:21 Dose: 75 mg Enoxaparin Sodium (Lovenox) 30 mg SC DAILY [facility] PRN Reason: Protocol Last Admin: 06/17/17 09:23 Dose: 30 mg Fluticasone Propionate (Flonase) 1 actuation NS DAILY [facility] Last Admin: 06/17/17 09:23 Dose: 1 spr Gabapentin (Neurontin) 100 mg PO DAILY [facility] Last Admin: 06/17/17 09:22 Dose: 100 mg Home Med (Home Med) 1 unit PO DAILY [facility] Last Admin: 06/17/17 09:24 Dose: 1 unit Milrinone Lactate/Dextrose (Primacor 20mg/100ml D5w) 100 mls @ 4.297 mls/hr IV .[id number] PRN; Protocol; 0.2 MCG/KG/MIN PRN Reason: TITRATE PER MD ORDER Last Admin: 06/17/17 02:07 Dose: 0.2 mcg/kg/min, 4.297 mls/hr Insulin Detemir (Levemir) 20 unit SC HS [facility] Last Admin: 06/16/17 22:36 Dose: Not Given Insulin Human Lispro (Humalog Low) 0 units SC [facility] PRN Reason: Protocol Last Admin: 06/17/17 13:11 Dose: Not Given Insulin Human Lispro (Humalog) 6 units SC AC [facility] Last Admin: 06/17/17 13:10 Dose: 6 units Ipratropium [place] (Atrovent) 0.5 mg IH [id number] [facility] Last Admin: 06/17/17 13:19 Dose: 0.5 mg Levalbuterol HCl (Xopenex) 1.25 mg IH [id number] [facility] Last Admin: 06/17/17 13:19 Dose: 1.25 mg Levalbuterol HCl (Xopenex) 0.63 mg IH [id number] PRN PRN Reason: Shortness of Breath Last Admin: 06/15/17 15:07 Dose: 0.63 mg Methylprednisolone (Solu-Medrol) 20 mg IVP Q12 [facility] Last Admin: 06/17/17 09:22 Dose: 20 mg Atomoxetine Hcl [ (Strattera] 60 Mg) 60 mg PO DAILY [facility] Last Admin: 06/17/17 10:13 Dose: Not Given Nystatin (Nystop Topical Powder) 0 gm TOP DAILY [facility] Last Admin: 06/17/17 09:24 Dose: 1 units Pantoprazole Sodium (Protonix Ec Tab) 40 mg PO DAILY [facility] Last Admin: 06/17/17 09:21 Dose: 40 mg Polyethylene Glycol (Miralax) 17 gm PO DAILY [facility] Last Admin: 06/17/17 09:23 Dose: 17 gm Polysaccharide Iron Complex (Ferrex-150) 150 mg PO DAILY [facility] Sevelamer HCl (Renagel) 1,600 mg PO TID [facility] Last Admin: 06/17/17 13:10 Dose: 1,600 mg Sildenafil Citrate (Revatio) 20 mg PO Q8 [facility] Last Admin: 06/17/17 13:10 Dose: 20 mg Sodium Chloride ([place] Nasal [place]) 0 ml NS TID PRN PRN Reason: Nasal congestion Zolpidem Tartrate (Ambien) 5 mg PO HS PRN; Protocol PRN Reason: Insomnia Last Admin: 06/16/17 23:05 Dose: 5 mg - Labs Labs: 06/17/17 06:20 06/17/17 06:20 PT 15.4 SECONDS (9.4-12.5) H 05/31/17 19:20 INR 1.40 (0.93-1.08) H 05/31/17 19:20 APTT 29.6 Seconds (25.1-36.5) 05/31/17 19:20 - Constitutional Appears: Well, Non-toxic, No Acute Distress - Extremities Exam Additional comments: VASC: DP pulses palpable 2/4 b/l. PT pulses nonpalpable secondary to edema. PROCESSING ASSOCIATE : < 3 sec to all digits, TG: warm to cool from proximal to distal. +2 pitting edema noted to bilateral LE. DERM: Very mild maceration noted to b/l 4th interspace, decreased since previous visit. Otherwise no open lesions, wounds, maceration, xerosis, abnormal pigmentation, abnormal growths noted b/l NEURO: Protective sensation grossly intact ORTHO: No POP or gross abnormalities to b/l feet - Neurological Exam Neurological Exam: Alert, Awake, Oriented x3 - Psychiatric Exam Psychiatric exam: Normal Affect, Normal Mood Assessment and Plan - Assessment and Plan (Free Text) Assessment: 82 year old male with b/l interdigital maceration Plan: Patient seen and evaluated at bedside Plan discussed with attending Dr. Bates Absent leukocytosis B/l fourth digital interspaces cleansed with betadine and betadine soaked gauze placed between the digits Podiatry will continue to follow while patient in house <Pablo Bates - Last Filed: 06/18/17 11:15> Objective - Vital Signs/Intake and Output Vital Signs (last 24 hours): Temp Pulse Resp BP Pulse Ox 98.2 F 115 H 42 H 186/77 H 91 L 06/18/17 08:00 06/18/17 10:01 06/18/17 10:01 06/18/17 10:01 06/18/17 10:01 Intake and Output: 06/18/17 06/18/17 06:59 18:59 Intake Total 100 Balance 100 - Medications Medications: Current Medications Alprazolam (Xanax) 0.25 mg PO BID PRN; Protocol PRN Reason: Anxiety Stop: 06/22/17 18:01 Last Admin: 06/18/17 09:44 Dose: 0.25 mg Atorvastatin Calcium (Lipitor) 40 mg PO DAILY [facility] Last Admin: 06/18/17 09:39 Dose: 40 mg Bupropion HCl (Wellbutrin) 75 mg PO BID [facility] Last Admin: 06/18/17 09:39 Dose: 75 mg Enoxaparin Sodium (Lovenox) 30 mg SC DAILY [facility] PRN Reason: Protocol Last Admin: 06/18/17 09:40 Dose: 30 mg Fluticasone Propionate (Flonase) 1 actuation NS DAILY [facility] Last Admin: 06/18/17 09:42 Dose: 1 spr Gabapentin (Neurontin) 100 mg PO DAILY [facility] Last Admin: 06/18/17 09:39 Dose: 100 mg Glipizide (Glucotrol) 10 mg PO 0730,1630 [facility] Last Admin: 06/18/17 08:24 Dose: 10 mg Home Med (Home Med) 1 unit PO DAILY [facility] Last Admin: 06/18/17 09:42 Dose: 1 unit Milrinone Lactate/Dextrose (Primacor 20mg/100ml D5w) 100 mls @ 4.297 mls/hr IV .[id number] PRN; Protocol; 0.2 MCG/KG/MIN PRN Reason: TITRATE PER MD ORDER Last Admin: 06/17/17 23:15 Dose: 0.2 mcg/kg/min, 4.297 mls/hr Insulin Detemir (Levemir) 20 unit SC HS [facility] Last Admin: 06/17/17 23:22 Dose: 20 unit Insulin Human Lispro (Humalog Low) 0 units SC ACHS [facility] PRN Reason: Protocol Last Admin: 06/18/17 08:12 Dose: Not Given Insulin Human Lispro (Humalog) 6 units SC AC [facility] Last Admin: 06/18/17 08:20 Dose: 6 units Ipratropium [place] (Atrovent) 0.5 mg IH [id number] [facility] Last Admin: 06/18/17 07:00 Dose: 0.5 mg Levalbuterol HCl (Xopenex) 1.25 mg IH [id number] [facility] Last Admin: 06/18/17 07:00 Dose: 1.25 mg Levalbuterol HCl (Xopenex) 0.63 mg IH [id number] PRN PRN Reason: Shortness of Breath Last Admin: 06/15/17 15:07 Dose: 0.63 mg Methylprednisolone (Solu-Medrol) 20 mg IVP DAILY [facility] Last Admin: 06/18/17 09:40 Dose: 20 mg Atomoxetine Hcl [ (Strattera] 60 Mg) 60 mg PO DAILY [facility] Last Admin: 06/18/17 09:39 Dose: Not Given Nystatin (Nystop Topical Powder) 0 gm TOP DAILY [facility] Last Admin: 06/18/17 09:42 Dose: 1 applic Pantoprazole Sodium (Protonix Ec Tab) 20 mg PO ACB [facility] Polyethylene Glycol (Miralax) 17 gm PO DAILY [facility] Last Admin: 06/18/17 09:40 Dose: 17 gm Polysaccharide Iron Complex (Ferrex-150) 150 mg PO DAILY [facility] Last Admin: 06/18/17 09:39 Dose: 150 mg Sevelamer HCl (Renagel) 1,600 mg PO TID [facility] Last Admin: 06/18/17 09:39 Dose: 1,600 mg Sildenafil Citrate (Revatio) 20 mg PO Q8 [facility] Last Admin: 06/18/17 06:57 Dose: 20 mg Sodium Chloride ([place] Nasal [place]) 0 ml NS TID PRN PRN Reason: Nasal congestion Zolpidem Tartrate (Ambien) 5 mg PO HS PRN; Protocol PRN Reason: Insomnia Last Admin: 06/16/17 23:05 Dose: 5 mg - Labs Labs: 06/18/17 06:30 06/18/17 06:30 PT 15.4 SECONDS (9.4-12.5) H 05/31/17 19:20 INR 1.40 (0.93-1.08) H 05/31/17 19:20 APTT 29.6 Seconds (25.1-36.5) 05/31/17 19:20 Attending/Attestation - Attestation I have personally seen and examined this patient.: Yes I have fully participated in the care of the patient.: Yes I have reviewed all pertinent clinical information, including history, physical exam and plan: Yes
[2017-06-17] MEDS: Iron Complex Polysacch 150mg Cap PO SCH (16:53)
--- NOTE | 2017-06-17 22:50 | PN ---
DATE: 06/17/2017 PULMONARY CRITICAL CARE PROGRESS NOTE REFERRING PHYSICIAN: Arya Booker MD SUBJECTIVE: He is lying in the bed, on nasal cannula, sleepy, arousable, on and off on noninvasive ventilation, able to eat his dinner, is at bedside. Short of breath with minimal exertion. No nausea. No vomiting. No diarrhea. No leg pain or leg swelling. OBJECTIVE GENERAL: In no acute distress. VITAL SIGNS: Temperature is 98, heart rate is 81, respiratory rate is 20, blood pressure is 121/48, pulse oximetry is 99% on 40% oxygen. HEENT: Moist mucous membranes. Crowded airway. Mallampati score is IV. NECK: Supple. No JVD. LUNGS: Have a few crackles at the bases. HEART: S1 and S2. ABDOMEN: Soft and nontender. No organomegaly. EXTREMITIES: There is no edema. NEUROLOGIC: Awake and alert. Follows simple commands. MEDICATIONS: He is on Ambien 5 mg h.s. p.r.n.; Atrovent inhaled q. 6 hours; mg daily; Flonase one spray to each nostril twice a day; insulin coverage, Levemir is at 20 units subcutaneously h.s.; Lipitor 40 mg daily; Lovenox 30 mg subcu daily; MiraLax 17 g daily; gabapentin 100 mg daily; nystatin to affected area daily; nasal saline one spray to each nostril three times a day p.r.n.; Primacor IV drip; Protonix 40 mg daily; Renagel 1.6 g three times a day; Revatio 20 mg q.8 hours; Solu-Medrol 20 mg daily; Wellbutrin 75 mg twice a day; Xanax 0.25 mg twice a day p.r.n.; also Xopenex 1.25 mg daily; Xopenex inhaler on a p.r.n. basis. LABORATORY DATA: Shows hemoglobin 8.8, hematocrit 25.6, WBC 7.5, platelet is 135. Sodium 131, potassium 4.5, chloride 91, bicarbonate 28, BUN 130, creatinine 3.1, glucose 266, calcium 9.0, AST 30, ALT 38, alkaline phosphatase is 117, albumin is 3.2. Microbiology, urine and blood culture, there is no growth. IMPRESSION AND PLAN: Severe pulmonary hypertension, valvular heart disease, anemia, renal failure, and diabetes. Case discussed with the patient's at bedside, all of her questions answered. I spoke to nursing staff. Also call made to pulmonary critical care fellow at [facility] about the bed situation. The patient will be transferred tonight, still waiting for the bed, hopefully will be done tonight. For now, continue Revatio 20 mg q.8 hours, Letairis 5 mg daily, inhaled bronchodilator, decrease Solu-Medrol to 20 mg daily. The patient will benefit with IV prostacyclin and probably inhaled nitric oxide. Critical care time spent more than 35 minutes. Thank you and we will follow with you. Guru Bustos MD
[2017-06-17] MEDS: Insulin Detemir 100 units/ml Vial (Levemir) SC SCH (23:22)
--- NOTE | 2017-06-18 00:05 | PN ---
DATE: 06/17/2017 SUBJECTIVE: This patient was seen and evaluated earlier today. The patient denies any abdominal pain. He is using BiPAP on and off. PHYSICAL EXAMINATION VITAL SIGNS: Afebrile. Blood pressure 126/54, respirations 21, O2 saturations 94%, pulse 87. HEENT: Atraumatic, anicteric. NECK: Supple. HEART: S1, S2 heard. LUNGS: Bilateral air entry, but reduced in the bases, few scattered rhonchi present throughout. EXTREMITIES: Edema 1+ present. NEUROLOGIC: Alert, moves all the extremities. LABORATORY DATA: Hemoglobin 8.8, hematocrit 25.6, WBC 7.5, platelets 135. Chemistry shows BUN 130, creatinine 3.1. LFTs normal. IMPRESSION: This is an 82-year-old patient with severe pulmonary hypertension, valvular heart disease, on BiPAP, and on ionotropic support, renal failure, cardiorenal syndrome, would recommend to continue the present treatment. The patient is being considered for transfer to [facility] for IV prostacyclin and inhaled nitric oxide therapy. From the GI perspective, the LFTs normalized. The patient has gallstone, normal CBD, probably secondary to the hepatic congestion as an eitiology for elevation ofthe enzymes. The patient has a slight drop in hemoglobin, no obvious bleeding, could be related to the multifactorial etiology, renal insufficiency. Continue to follow up the hemoglobin and hematocrit. The patient is on Solu Medrol. We will continue the Protonix and we will reduce the dose of the Protonix to 20 mg. Thank you very much for allowing us to participate in the care of the patient. Karly Fraser MD [facility]
--- NOTE | 2017-06-18 00:06 | PN ---
DATE: ENDOCRINOLOGY FOLLOWUP NOTE LOCATION: ICU 128, room #2. SUBJECTIVE: This is an 82-year-old male with recent admission for congestive heart failure and supervening COPD and started on IV steroid therapy being tapered at this time and is also now being followed closely for metabolic management because of recent hyperglycemic accelerations as noted thereof. LABORATORY DATA: His glucose values today have ranged from 218 to 283 mg/dL. His latest chemistries showed a BUN of 130, sodium 131, potassium 4.5, chloride 91, CO2 28, glucose 266 and creatinine 3.1. PLAN: So at this time, we will continue the same modified basal and bolus insulin regimen as his IV steroids are being tapered down with Levemir given as 20 units subcu at bedtime daily as ordered. We will continue the Humalog given as 6 units subcu t.i.d. before meals as given. We will add glipizide given as 10 mg b.i.d. before meals as ordered. We will continue the low-dose correction scale using Humalog insulin as given. We will obtain serial chemistries and supplement accordingly as needed. Julienne Mendoza MD
[2017-06-18] MEDS: Levalbuterol 1.25 MG/3 ML Inhal Soln UD IH SCH ×4 (02:30→20:00)
[2017-06-18] MEDS: Ipratropium 0.02% Inhal Soln (0.5 mg/2.5 ml) UD IH SCH ×4 (02:30→20:00)
[2017-06-18] MEDS: Sildenafil 20 MG TAB PO SCH ×3 (06:57→22:39)
[2017-06-18 07:05] LABS: HEMOGLOBIN 9.4 g/dL (14.0-18.0); IRON 44 ug/dL (45-180); MEAN CELL VOLUME 90.8 fl (80.0-105.0); MEAN CORPUSCULAR HEMOGLOBIN 30.9 pg (25.0-35.0); MEAN CORPUSCULAR HGB CONC 34.1 g/dl (31.0-37.0); MEAN PLATELET VOLUME 12.1 fl (7.0-11.0); RBC 3.04 10^6/uL (3.5-6.1); RED CELL DISTRIBUTION WIDTH 13.7 % (11.5-14.5); WHITE BLOOD COUNT 6.9 10^3/ul (4.5-11.0)
[2017-06-18 07:16] LABS: TOTAL IRON BINDING CAPACITY 313 ug/dL (261-462)
[2017-06-18 07:24] LABS: % IRON SATURATION 14 % (20-55)
[2017-06-18 07:55] LABS: ALB/GLOB RATIO 1.2 (1.1-1.8); ALBUMIN 3.1 g/dL (3.0-4.8); CALCIUM 8.9 mg/dL (8.4-10.5); MAGNESIUM 2.9 mg/dL (1.7-2.2)
[2017-06-18] MEDS: Insulin Lispro (humaLOG) LOW Coverage SC SCH ×4 (08:12→22:47)
[2017-06-18] MEDS: Insulin Lispro 1 UNITS/0.01 ML SC SCH ×3 (08:20→17:12)
--- NOTE | 2017-06-18 08:28 | PN ---
DATE: 06/17/2017 SUBJECTIVE: The patient seems stable, comfortable, in no distress. His any distress. PHYSICAL EXAMINATION: VITAL SIGNS: As follows; temperature 98, heart rate 87, blood pressure 126/54, respirations 18, saturation 96% on 4 L. HEAD AND NECK: Normal. No JVD. No thyromegaly. CHEST: Clear. CARDIAC: First sound and second sound normal. There is a systolic murmur across the precordium, across the aortic areas. ABDOMEN: Soft and nontender. EXTREMITIES: There is edema on the foot only. NEUROLOGIC: Normal. LABORATORY DATA: White count 7.5, hemoglobin 8.8, hematocrit 25.6, platelets 135. His chemistry noted for sodium 131, potassium 4.5, chloride 91, bicarbonate 28, BUN 130, creatinine 3.1, and blood sugar 266. Liver function test is normal. IMPRESSION AND PLAN: 1. Acute respiratory failure, combined multi factors. The patient has severe pulmonary hypertension in addition to chronic obstructive pulmonary disease, left-sided heart failure, obstructive sleep apnea. We will continue inhaled bronchodilators, Solu-Medrol, BiPAP. The patient is getting Letairis 5 mg daily in addition to Revatio 20 mg t.i.d. Other medications still pending. We will transfer the patient to [facility], waiting for a bed today. We did call, and still waiting for the bed. Discussed with the nursing staff about the transfers, and we will continue working on that. 2. Diabetes. Blood sugar is 200. Probably secondary to steroids. We will increase his insulin coverage. 3. Chronic depression and anxiety, probably secondary to his physical illness and his stress associated to that. Continue Xanax. Continue Ambien, Strattera, and Wellbutrin. We will follow up clinically. 4. Continue GI and DVT prophylaxes. Arya Booker MD
--- NOTE | 2017-06-18 08:34 | CP.PCM.PN ---
Subjective - Date & Time of Evaluation Date of Evaluation: 06/18/17 Time of Evaluation: 07:10 - Subjective Subjective: Patient seen and examined, remains off bipap, complaining of minimal SOB. Objective - Vital Signs/Intake and Output Vital Signs (last 24 hours): Temp Pulse Resp BP Pulse Ox 97.2 F L 93 H 21 127/57 L 94 L 06/17/17 18:00 06/17/17 23:15 06/17/17 19:00 06/17/17 23:15 06/17/17 19:00 Intake and Output: 06/18/17 06/18/17 06:59 18:59 Intake Total 100 Balance 100 - Medications Medications: Current Medications Alprazolam (Xanax) 0.25 mg PO BID PRN; Protocol PRN Reason: Anxiety Stop: 06/22/17 18:01 Last Admin: 06/16/17 21:11 Dose: 0.25 mg Atorvastatin Calcium (Lipitor) 40 mg PO DAILY [facility] Last Admin: 06/17/17 09:21 Dose: 40 mg Bupropion HCl (Wellbutrin) 75 mg PO BID [facility] Last Admin: 06/17/17 16:54 Dose: 75 mg Enoxaparin Sodium (Lovenox) 30 mg SC DAILY [facility] PRN Reason: Protocol Last Admin: 06/17/17 09:23 Dose: 30 mg Fluticasone Propionate (Flonase) 1 actuation NS DAILY [facility] Last Admin: 06/17/17 09:23 Dose: 1 spr Gabapentin (Neurontin) 100 mg PO DAILY [facility] Last Admin: 06/17/17 09:22 Dose: 100 mg Glipizide (Glucotrol) 10 mg PO 0730,1630 [facility] Last Admin: 06/18/17 08:24 Dose: 10 mg Home Med (Home Med) 1 unit PO DAILY [facility] Last Admin: 06/17/17 09:24 Dose: 1 unit Milrinone Lactate/Dextrose (Primacor 20mg/100ml D5w) 100 mls @ 4.297 mls/hr IV .[id number] PRN; Protocol; 0.2 MCG/KG/MIN PRN Reason: TITRATE PER MD ORDER Last Admin: 06/17/17 23:15 Dose: 0.2 mcg/kg/min, 4.297 mls/hr Insulin Detemir (Levemir) 20 unit SC [facility] Last Admin: 06/17/17 23:22 Dose: 20 unit Insulin Human Lispro (Humalog Low) 0 units SC ACHS [facility] PRN Reason: Protocol Last Admin: 06/18/17 08:12 Dose: Not Given Insulin Human Lispro (Humalog) 6 units SC AC [facility] Last Admin: 06/18/17 08:20 Dose: 6 units Ipratropium [place] (Atrovent) 0.5 mg IH [id number] [facility] Last Admin: 06/18/17 07:00 Dose: 0.5 mg Levalbuterol HCl (Xopenex) 1.25 mg IH [id number] [facility] Last Admin: 06/18/17 07:00 Dose: 1.25 mg Levalbuterol HCl (Xopenex) 0.63 mg IH [id number] PRN PRN Reason: Shortness of Breath Last Admin: 06/15/17 15:07 Dose: 0.63 mg Methylprednisolone (Solu-Medrol) 20 mg IVP DAILY [facility] Atomoxetine Hcl [ (Strattera] 60 Mg) 60 mg PO DAILY [facility] Last Admin: 06/17/17 10:13 Dose: Not Given Nystatin (Nystop Topical Powder) 0 gm TOP DAILY [facility] Last Admin: 06/17/17 09:24 Dose: 1 units Pantoprazole Sodium (Protonix Ec Tab) 40 mg PO DAILY [facility] Last Admin: 06/17/17 09:21 Dose: 40 mg Polyethylene Glycol (Miralax) 17 gm PO DAILY [facility] Last Admin: 06/17/17 09:23 Dose: 17 gm Polysaccharide Iron Complex (Ferrex-150) 150 mg PO DAILY [facility] Last Admin: 06/17/17 16:53 Dose: 150 mg Sevelamer HCl (Renagel) 1,600 mg PO TID [facility] Last Admin: 06/17/17 16:53 Dose: 1,600 mg Sildenafil Citrate (Revatio) 20 mg PO Q8 [facility] Last Admin: 06/18/17 06:57 Dose: 20 mg Sodium Chloride ([place] Nasal [place]) 0 ml NS TID PRN PRN Reason: Nasal congestion Zolpidem Tartrate (Ambien) 5 mg PO HS PRN; Protocol PRN Reason: Insomnia Last Admin: 06/16/17 23:05 Dose: 5 mg - Labs Labs: 06/18/17 06:30 06/18/17 06:30 PT 15.4 SECONDS (9.4-12.5) H 05/31/17 19:20 INR 1.40 (0.93-1.08) H 05/31/17 19:20 APTT 29.6 Seconds (25.1-36.5) 05/31/17 19:20 - Constitutional Appears: Well, Non-toxic, No Acute Distress - Eye Exam Eye Exam: Normal appearance - ENT Exam ENT Exam: Mucous Membranes Moist - Respiratory Exam Respiratory Exam: Decreased Breath Sounds, Rales, NORMAL BREATHING PATTERN - Cardiovascular Exam Cardiovascular Exam: REGULAR RHYTHM, +S1, +S2 - GI/Abdominal Exam GI & Abdominal Exam: Soft, Normal Bowel Sounds - Neurological Exam Neurological Exam: Alert, Awake, Oriented x3 - Psychiatric Exam Psychiatric exam: Anxious Assessment and Plan - Assessment and Plan (Free Text) Assessment: 82 year old male PMHx severe pulmonary hypertension, hypertension, CAD, DM II, CHF s/p CABG and aortic valve replacement (bioprosthetic) a/w SOB Currently awake, alert, off BIPAP, in NAD, comfortable on 4LNC Potassium wnl Renal function improving off Lasix Recommend: - cont with BIPAP as needed - Solumedrol 20mg Q24hr IV, taper - Follow up Pulmonary - Milrinone, Leitaris - BP control, afterload reduction - Continue lipitor - hold Lasix - would hold off IVF given severe Pulm HTN - Needs IV prostacyclin, Inhaled NO - awaiting transfer to [facility] - Follow up cardiology - Cont with Revatio - GI ppx - DVT ppx - transfer to telemetry
[2017-06-18] MEDS: Iron Complex Polysacch 150mg Cap PO SCH (09:39)
[2017-06-18] MEDS: MethylPREDNISolone 40 mg Vial IVP SCH (09:40)
[2017-06-18] MEDS: Enoxaparin 30 mg Syringe SC SCH (09:40)
[2017-06-18] MEDS: Pantoprazole 40 mg EC Tab PO SCH (09:40)
[2017-06-18] MEDS: POLYETHYLENE GLYCOL 3350 17 GM/Dose PACKET PO SCH (09:40)
[2017-06-18] MEDS: Nystatin 100,000 Units/gm Topical Pow(15 gm) TOP SCH (09:42)
[2017-06-18] MEDS: LETAIRIS 5 MG PO SCH (09:42)
[2017-06-18] MEDS: Fluticasone Nasal 50 mcg/Spray NS SCH (09:42)
[2017-06-18] MEDS ORDERED: Insulin Detemir 100 units/ml Vial (Levemir) SC SCH (10:00)
--- NOTE | 2017-06-18 11:08 | CP.PCM.PN ---
<Evelio,Modestovil V - Last Filed: 06/18/17 18:55> Objective - Vital Signs/Intake and Output Vital Signs (last 24 hours): Temp Pulse Resp BP Pulse Ox 98.6 F 104 H 31 H 124/45 L 90 L 06/18/17 16:00 06/18/17 18:00 06/18/17 18:00 06/18/17 16:00 06/18/17 18:00 Intake and Output: 06/18/17 06/18/17 06:59 18:59 Intake Total 100 1072 Output Total 975 Balance 100 97 - Medications Medications: Current Medications Alprazolam (Xanax) 0.25 mg PO BID PRN; Protocol PRN Reason: Anxiety Stop: 06/22/17 18:01 Last Admin: 06/18/17 09:44 Dose: 0.25 mg Atorvastatin Calcium (Lipitor) 40 mg PO DAILY [facility] Last Admin: 06/18/17 09:39 Dose: 40 mg Darbepoetin [place] (Aranesp) 60 mcg SC ONCE ONE Stop: 06/19/17 10:01 Enoxaparin Sodium (Lovenox) 30 mg SC DAILY [facility] PRN Reason: Protocol Last Admin: 06/18/17 09:40 Dose: 30 mg Fluticasone Propionate (Flonase) 1 actuation NS DAILY [facility] Last Admin: 06/18/17 09:42 Dose: 1 spr Gabapentin (Neurontin) 100 mg PO DAILY [facility] Last Admin: 06/18/17 09:39 Dose: 100 mg Glipizide (Glucotrol) 10 mg PO 0730,1630 [facility] Last Admin: 06/18/17 17:11 Dose: 10 mg Home Med (Home Med) 1 unit PO DAILY [facility] Last Admin: 06/18/17 09:42 Dose: 1 unit Milrinone Lactate/Dextrose (Primacor 20mg/100ml D5w) 100 mls @ 4.297 mls/hr IV .[id number] PRN; Protocol; 0.2 MCG/KG/MIN PRN Reason: TITRATE PER MD ORDER Last Admin: 06/17/17 23:15 Dose: 0.2 mcg/kg/min, 4.297 mls/hr Insulin Detemir (Levemir) 20 unit SC [facility] Last Admin: 06/17/17 23:22 Dose: 20 unit Insulin Human Lispro (Humalog Low) 0 units SC ACHS [facility] PRN Reason: Protocol Last Admin: 06/18/17 16:57 Dose: Not Given Insulin Human Lispro (Humalog) 6 units SC AC [facility] Last Admin: 06/18/17 17:12 Dose: 6 units Ipratropium [place] (Atrovent) 0.5 mg IH [id number] [facility] Last Admin: 06/18/17 13:13 Dose: 0.5 mg Levalbuterol HCl (Xopenex) 1.25 mg IH [id number] [facility] Last Admin: 06/18/17 13:14 Dose: 1.25 mg Levalbuterol HCl (Xopenex) 0.63 mg IH [id number] PRN PRN Reason: Shortness of Breath Last Admin: 06/15/17 15:07 Dose: 0.63 mg Methylprednisolone (Solu-Medrol) 20 mg IVP DAILY [facility] Last Admin: 06/18/17 09:40 Dose: 20 mg Atomoxetine Hcl [ (Strattera] 60 Mg) 60 mg PO DAILY [facility] Last Admin: 06/18/17 09:39 Dose: Not Given Nystatin (Nystop Topical Powder) 0 gm TOP DAILY [facility] Last Admin: 06/18/17 09:42 Dose: 1 applic Pantoprazole Sodium (Protonix Ec Tab) 20 mg PO ACB [facility] Polyethylene Glycol (Miralax) 17 gm PO DAILY [facility] Last Admin: 06/18/17 09:40 Dose: 17 gm Polysaccharide Iron Complex (Ferrex-150) 150 mg PO DAILY [facility] Last Admin: 06/18/17 09:39 Dose: 150 mg Sevelamer HCl (Renagel) 1,600 mg PO TID [facility] Last Admin: 06/18/17 17:11 Dose: 1,600 mg Sildenafil Citrate (Revatio) 20 mg PO Q8 [facility] Last Admin: 06/18/17 13:00 Dose: 20 mg Sodium Chloride ([place] Nasal [place]) 0 ml NS TID PRN PRN Reason: Nasal congestion Zolpidem Tartrate (Ambien) 5 mg PO HS PRN; Protocol PRN Reason: Insomnia Last Admin: 06/16/17 23:05 Dose: 5 mg - Labs Labs: 06/18/17 06:30 06/18/17 06:30 PT 15.4 SECONDS (9.4-12.5) H 05/31/17 19:20 INR 1.40 (0.93-1.08) H 05/31/17 19:20 APTT 29.6 Seconds (25.1-36.5) 05/31/17 19:20 Attending/Attestation - Attestation I have personally seen and examined this patient.: Yes I have fully participated in the care of the patient.: Yes I have reviewed all pertinent clinical information, including history, physical exam and plan: Yes Notes (Text): This is an addendum to GI progress report dictated by Juliana Junior APN.The patient was seen and examined earlier. Medical records, lab studies, imagings were reviewed. Last 24 hours events reviewed. Agreed with the above treatment plan as outlined in Juliana Junior APN's notes the with the addition of the following patient is on Primacor drip and revatio History of coronary artery disease status post CABG, AVR and mitral valve repair Patient is on Lovenox 30 mg subcutaneous slight drop in hemoglobin could be due to multifactorial etiology including renal failure on iron and aranesep We'll discuss with the piper helper and cardiology regarding Lovenox in view of this acute kidney injury secondary to the cardiorenal syndrome on chronic kidney disease Patient is awaiting for transfer to him twice a day for further management of pulmonary hypertension We'll discuss with the piper helper and cardiology regarding Lovenox in view of this acute kidney injury on chronic kidney disease 06/18/17 18:53 <Juliana Junior J - Last Filed: 06/19/17 10:11> Subjective - Date & Time of Evaluation Date of Evaluation: 06/18/17 Time of Evaluation: 09:45 - Subjective Subjective: Seen and examined at the bedside earlier today, the chart was reviewed. No acute overnight events reported. Patient occasional S OB but no respiratory distress. Reported having BM yesterday no reports of melena or bright red blood per rectum. Patient tolerating oral intake. Spoke to nursing at bedside. Objective - Vital Signs/Intake and Output Vital Signs (last 24 hours): Temp Pulse Resp BP Pulse Ox 98.2 F 115 H 42 H 186/77 H 91 L 06/18/17 08:00 06/18/17 10:01 06/18/17 10:01 06/18/17 10:06/18/17 10:01 Intake and Output: 06/18/17 06/18/17 06:59 18:59 Intake Total 100 Balance 100 - Medications Medications: Current Medications Alprazolam (Xanax) 0.25 mg PO BID PRN; Protocol PRN Reason: Anxiety Stop: 06/22/17 18:01 Last Admin: 06/18/17 09:44 Dose: 0.25 mg Atorvastatin Calcium (Lipitor) 40 mg PO DAILY [facility] Last Admin: 06/18/17 09:39 Dose: 40 mg Bupropion HCl (Wellbutrin) 75 mg PO BID [facility] Last Admin: 06/18/17 09:39 Dose: 75 mg Enoxaparin Sodium (Lovenox) 30 mg SC DAILY [facility] PRN Reason: Protocol Last Admin: 06/18/17 09:40 Dose: 30 mg Fluticasone Propionate (Flonase) 1 actuation NS DAILY [facility] Last Admin: 06/18/17 09:42 Dose: 1 spr Gabapentin (Neurontin) 100 mg PO DAILY [facility] Last Admin: 06/18/17 09:39 Dose: 100 mg Glipizide (Glucotrol) 10 mg PO 0730,1630 [facility] Last Admin: 06/18/17 08:24 Dose: 10 mg Home Med (Home Med) 1 unit PO DAILY [facility] Last Admin: 06/18/17 09:42 Dose: 1 unit Milrinone Lactate/Dextrose (Primacor 20mg/100ml D5w) 100 mls @ 4.297 mls/hr IV .[id number] PRN; Protocol; 0.2 MCG/KG/MIN PRN Reason: TITRATE PER MD ORDER Last Admin: 06/17/17 23:15 Dose: 0.2 mcg/kg/min, 4.297 mls/hr Insulin Detemir (Levemir) 20 unit SC HS [facility] Last Admin: 06/17/17 23:22 Dose: 20 unit Insulin Human Lispro (Humalog Low) 0 units SC ACHS [facility] PRN Reason: Protocol Last Admin: 06/18/17 08:12 Dose: Not Given Insulin Human Lispro (Humalog) 6 units SC AC [facility] Last Admin: 06/18/17 08:20 Dose: 6 units Ipratropium [place] (Atrovent) 0.5 mg IH [id number] [facility] Last Admin: 06/18/17 07:00 Dose: 0.5 mg Levalbuterol HCl (Xopenex) 1.25 mg IH [id number] [facility] Last Admin: 06/18/17 07:00 Dose: 1.25 mg Levalbuterol HCl (Xopenex) 0.63 mg IH [id number] PRN PRN Reason: Shortness of Breath Last Admin: 06/15/17 15:07 Dose: 0.63 mg Methylprednisolone (Solu-Medrol) 20 mg IVP DAILY [facility] Last Admin: 06/18/17 09:40 Dose: 20 mg Atomoxetine Hcl [ (Strattera] 60 Mg) 60 mg PO DAILY [facility] Last Admin: 06/18/17 09:39 Dose: Not Given Nystatin (Nystop Topical Powder) 0 gm TOP DAILY [facility] Last Admin: 06/18/17 09:42 Dose: 1 applic Pantoprazole Sodium (Protonix Ec Tab) 40 mg PO DAILY [facility] Last Admin: 06/18/17 09:40 Dose: 40 mg Polyethylene Glycol (Miralax) 17 gm PO DAILY [facility] Last Admin: 06/18/17 09:40 Dose: 17 gm Polysaccharide Iron Complex (Ferrex-150) 150 mg PO DAILY [facility] Last Admin: 06/18/17 09:39 Dose: 150 mg Sevelamer HCl (Renagel) 1,600 mg PO TID [facility] Last Admin: 06/18/17 09:39 Dose: 1,600 mg Sildenafil Citrate (Revatio) 20 mg PO Q8 [facility] Last Admin: 06/18/17 06:57 Dose: 20 mg Sodium Chloride (Bruce Nasal [place]) 0 ml NS TID PRN PRN Reason: Nasal congestion Zolpidem Tartrate (Ambien) 5 mg PO HS PRN; Protocol PRN Reason: Insomnia Last Admin: 06/16/17 23:05 Dose: 5 mg - Labs Labs: 06/18/17 06:30 06/18/17 06:30 PT 15.4 SECONDS (9.4-12.5) H 05/31/17 19:20 INR 1.40 (0.93-1.08) H 05/31/17 19:20 APTT 29.6 Seconds (25.1-36.5) 05/31/17 19:20 - Constitutional Appears: No Acute Distress - Head Exam Head Exam: NORMOCEPHALIC - Eye Exam Eye Exam: Normal appearance. absent: Scleral icterus - ENT Exam ENT Exam: Mucous Membranes Moist - Neck Exam Neck Exam: Normal Inspection - Respiratory Exam Respiratory Exam: Decreased Breath Sounds, NORMAL BREATHING PATTERN. absent: Respiratory Distress - Cardiovascular Exam Cardiovascular Exam: +S1, +S2 - GI/Abdominal Exam GI & Abdominal Exam: Soft, Normal Bowel Sounds. absent: Guarding, Rebound - Extremities Exam Extremities Exam: Pedal Edema. absent: Calf Tenderness - Neurological Exam Neurological Exam: Alert, Awake, Oriented x3 - Skin Skin Exam: Dry, Warm Assessment and Plan - Assessment and Plan (Free Text) Assessment: Assessment: Elevated LFTs, improving, likely secondary to hepatic congestion Severe pulmonary hypertension Valvular heart disease, status post aortic and mitral valve repair CHF Cholelithiasis, normal CBD Acute renal failure Plan: Continue diet as tolerated Continue PPI, will decrease Protonix to 20mg daily in view of ARF On Lovenox on Solumedrol decreased to daily Continue to trend LFTs continue miralax daily on Primacor drip Awaiting transfer to [facility] for IV Prostacycline As per cardiology Seen and discussed with Dr. Fraser.
--- NOTE | 2017-06-18 11:59 | PN ---
DATE: 06/18/2017 REASON FOR CONSULTATION AND FOLLOWUP: Cardiac evaluation, severe pulmonary hypertension, coronary artery disease Awaiting to be transferred to [facility]. SUBJECTIVE: Still complained of shortness of breath, but that had been high yesterday. OBJECTIVE: GENERAL: Not in apparent distress, lying flat in the bed, still on IV Primacor. VITAL SIGNS: As follows; temperature afebrile, heart rate 90, and blood pressure 130/52. HEENT: PERRLA. Extraocular muscles are intact. NECK: Supple. No carotid bruit or thyromegaly. CHEST: Clear to auscultation. HEART: S1 and S2 regular. ABDOMEN: Soft. EXTREMITIES: Clubbing and cyanosis negative. LABORATORY DATA: Blood workup as follows: WBC of 6.9, hemoglobin of 9.5, hematocrit of 27.6, and platelet count of 125. Chemistry shows sodium of 134, potassium of 3.8, chloride of 94, carbon dioxide of 30, anion gap of 14, BUN of 118, and creatinine 2.2. IMPRESSION: Acute kidney injury resolving, severe pulmonary hypertension, normal left ventricular function, status post aortic valve replacement bioprosthetic for aortic stenosis, status post 1-vessel bypass, status post mitral valve repair, severe pulmonary hypertension, right ventricular systolic pressure by right heart catheterization 103, acute kidney injury secondary to possible over diuresed. RECOMMENDATIONS: Continue renal adjusted dose of milrinone decreased to 0.2 mg. Continue Revatio. Awaiting to be transferred to [facility] for more aggressive treatment for pulmonary hypertension including prostacyclin inhalation, nitric oxide as well as bosentan antagonist. In the interim, continue current medication. Overall, the patient's condition critical long-term prognosis is extremely guarded. Discussed multiple time with Dr. Booker last week. The patient has overall preserved LV function. Guru Sosa MD
--- NOTE | 2017-06-18 12:31 | CP.PCM.PN ---
Subjective - Date & Time of Evaluation Date of Evaluation: 06/18/17 Time of Evaluation: 09:40 - Subjective Subjective: Continues to be on the BiPAP but no fevers, not in distress. Objective - Vital Signs/Intake and Output Vital Signs (last 24 hours): Temp Pulse Resp BP Pulse Ox 97.2 F L 93 H 21 127/57 L 94 L 06/17/17 18:00 06/17/17 23:15 06/17/17 19:00 06/17/17 23:15 06/17/17 19:00 Intake and Output: 06/18/17 06/18/17 06:59 18:59 Intake Total 100 Balance 100 - Medications Medications: Current Medications Alprazolam (Xanax) 0.25 mg PO BID PRN; Protocol PRN Reason: Anxiety Stop: 06/22/17 18:01 Last Admin: 06/16/17 21:11 Dose: 0.25 mg Atorvastatin Calcium (Lipitor) 40 mg PO DAILY [facility] Last Admin: 06/17/17 09:21 Dose: 40 mg Bupropion HCl (Wellbutrin) 75 mg PO BID [facility] Last Admin: 06/17/17 16:54 Dose: 75 mg Enoxaparin Sodium (Lovenox) 30 mg SC DAILY [facility] PRN Reason: Protocol Last Admin: 06/17/17 09:23 Dose: 30 mg Fluticasone Propionate (Flonase) 1 actuation NS DAILY [facility] Last Admin: 06/17/17 09:23 Dose: 1 spr Gabapentin (Neurontin) 100 mg PO DAILY [facility] Last Admin: 06/17/17 09:22 Dose: 100 mg Glipizide (Glucotrol) 10 mg PO 0730,1630 [facility] Last Admin: 06/18/17 08:24 Dose: 10 mg Home Med (Home Med) 1 unit PO DAILY [facility] Last Admin: 06/17/17 09:24 Dose: 1 unit Milrinone Lactate/Dextrose (Primacor 20mg/100ml D5w) 100 mls @ 4.297 mls/hr IV .[id number] PRN; Protocol; 0.2 MCG/KG/MIN PRN Reason: TITRATE PER MD ORDER Last Admin: 06/17/17 23:15 Dose: 0.2 mcg/kg/min, 4.297 mls/hr Insulin Detemir (Levemir) 20 unit SC [facility] Last Admin: 06/17/17 23:22 Dose: 20 unit Insulin Human Lispro (Humalog Low) 0 units SC ACHS [facility]I PRN Reason: Protocol Last Admin: 06/18/17 08:12 Dose: Not Given Insulin Human Lispro (Humalog) 6 units SC AC [facility] Last Admin: 06/18/17 08:20 Dose: 6 units Ipratropium [place] (Atrovent) 0.5 mg IH [id number] [facility] Last Admin: 06/18/17 07:00 Dose: 0.5 mg Levalbuterol HCl (Xopenex) 1.25 mg IH [id number] [facility] Last Admin: 06/18/17 07:00 Dose: 1.25 mg Levalbuterol HCl (Xopenex) 0.63 mg IH [id number] PRN PRN Reason: Shortness of Breath Last Admin: 06/15/17 15:07 Dose: 0.63 mg Methylprednisolone (Solu-Medrol) 20 mg IVP DAILY [facility] Atomoxetine Hcl [ (Strattera] 60 Mg) 60 mg PO DAILY [facility] Last Admin: 06/17/17 10:13 Dose: Not Given Nystatin (Nystop Topical Powder) 0 gm TOP DAILY [facility] Last Admin: 06/17/17 09:24 Dose: 1 units Pantoprazole Sodium (Protonix Ec Tab) 40 mg PO DAILY [facility] Last Admin: 06/17/17 09:21 Dose: 40 mg Polyethylene Glycol (Miralax) 17 gm PO DAILY [facility] Last Admin: 06/17/17 09:23 Dose: 17 gm Polysaccharide Iron Complex (Ferrex-150) 150 mg PO DAILY [facility] Last Admin: 06/17/17 16:53 Dose: 150 mg Sevelamer HCl (Renagel) 1,600 mg PO TID [facility] Last Admin: 06/17/17 16:53 Dose: 1,600 mg Sildenafil Citrate (Revatio) 20 mg PO Q8 [facility] Last Admin: 06/18/17 06:57 Dose: 20 mg Sodium Chloride ([place] Nasal [place]) 0 ml NS TID PRN PRN Reason: Nasal congestion Zolpidem Tartrate (Ambien) 5 mg PO HS PRN; Protocol PRN Reason: Insomnia Last Admin: 06/16/17 23:05 Dose: 5 mg - Labs Labs: 06/18/17 06:30 06/18/17 06:30 PT 15.4 SECONDS (9.4-12.5) H 05/31/17 19:20 INR 1.40 (0.93-1.08) H 05/31/17 19:20 APTT 29.6 Seconds (25.1-36.5) 05/31/17 19:20 - Constitutional Appears: Non-toxic - Head Exam Head Exam: NORMAL INSPECTION - ENT Exam ENT Exam: Mucous Membranes Moist - Neck Exam Neck Exam: absent: Meningismus - Respiratory Exam Respiratory Exam: Decreased Breath Sounds - Cardiovascular Exam Cardiovascular Exam: +S1, +S2 - GI/Abdominal Exam GI & Abdominal Exam: Soft. absent: Tenderness Assessment and Plan - Assessment and Plan (Free Text) Plan: Assessment S/P severe sepsis from possible HCAP on top of acute congestive heart failure CVA asthma history of endocarditis S/P aortic valve replacement severe pulmonary HTN peripheral neuropathy prostate cancer Plan continue to monitor off antibiotics since he is at risk for nosocomial infections
--- NOTE | 2017-06-18 13:16 | PN ---
DATE: SUBJECTIVE: The patient appears comfortable in bed. He remains on BiPAP therapy. He is awaiting transfer to [facility] for evaluation of his severe pulmonary hypertension. His BUN and creatinine have improved in the last 24 hours. He remains off IV fluid hydration and continues to be in negative fluid balance. MEDICATIONS: Medication list reviewed. The patient is on Ambien, Strattera, Atrovent, iron, Flonase, Glucotrol, Letairis, insulin, Lipitor, Lovenox, MiraLax, Neurontin, Primacor, Protonix, Renagel, Revatio, Solu-Medrol, Wellbutrin, Xanax, and Xopenex. OBJECTIVE: INTAKE/OUTPUT: Intake 748 and output 1000. VITAL SIGNS: Blood pressure 137/55, heart rate 100, respiratory rate is 28, and temperature is 98.2. HEENT: Normocephalic, atraumatic. Conjunctivae are pale. Sclerae nonicteric. NECK: Supple. No neck vein distention. CHEST: Scattered rhonchi, scattered rales. No wheezing. CARDIOVASCULAR: Regular rate and rhythm, status post aortic valve replacement, status post mitral valve repair. Positive soft holosystolic murmur in the left lower sternal border. No S3. No S4. No rub. ABDOMEN: Soft. Bowel sounds normal. No rebound or guarding. No masses. EXTREMITIES: Show trace to 1+ pitting pedal edema. No cyanosis or clubbing. NEUROLOGIC: Shows no asterixis. LABORATORY DATA AND IMAGING STUDIES: CBC today white blood cell count 6.9, hemoglobin improved at 9.4, and platelet count is 125,000. Chemistries today showed normal electrolytes. BUN is improved at 118 down from 130. His baseline BUN is in the 40s. Creatinine is down from a high of 3.4 down to 2.2, baseline creatinine is 1.1. Microbiology, all cultures are negative. Renal ultrasound done showed normal kidneys. No recent chest x-ray is done. ASSESSMENT: 1. Acute renal failure superimposed on chronic kidney disease stage II. By history the patient is diabetic nephropathy. The patient is felt to have renal hypoperfusion secondary to cardiorenal syndrome and decreased cardiac output. He remains off diuretic therapy and is on lower doses of steroids. BUN and creatinine appear to be improving. He does not appear that he will require dialysis. 2. History of severe pulmonary hypertension. The patient remains on multiple medications. There is a possible transfer to [facility] for more definitive treatment of his pulmonary hypertension. 3. Status post hyperkalemia. Potassium level today is normal. 4. History of arteriosclerotic heart disease, status post coronary artery bypass graft, status post aortic valve replacement, status post mitral valve repair; this all appears to be stable. 5. History of anemia secondary to chronic kidney disease. The patient's iron saturations are 14%. The patient can be started on IV Venofer. The patient may receive erythropoietin to help improve his hemoglobin level. 6. History of secondary hyperparathyroidism. Phosphorus level remains elevated at 4.9. The patient will continue binder therapy and a renal diet. PLAN 1. Discussed with the patient's family in detail. Encouraged to see falling BUN and creatinine levels. We will continue to try and hold diuretics. The patient is not receiving any IV fluid hydration. We will continue to try and decrease steroids. 2. With history of severe pulmonary hypertension. Continue present medications. 3. With history of cardiorenal syndrome continue ionotropic support. 4. Continue to keep Is and Os in balance with output slightly ahead of intake. 5. Start erythropoietin, Aranesp, and start IV Venofer. 6. Discussed with ICU staff in detail. Greater than 35 minutes spent the care of this patient. Willy Keen MD
[2017-06-18] MEDS: Milrinone 20mg/100ml D5W 100 ML IV PRN (22:44)
[2017-06-18] MEDS: Insulin Detemir 100 units/ml Vial (Levemir) SC SCH (23:01)
--- NOTE | 2017-06-19 01:14 | PN ---
DATE: ENDOCRINOLOGY FOLLOWUP NOTE LOCATION: ICU room number 128. SUBJECTIVE: This is an 82-year-old male admitted with congestive heart failure and now being followed closely for metabolic management, also COPD and started on IV steroids and therapy which is being tapered down as noted. His glycemic levels are fluctuating through and the latest glucose levels have ranged from 218 to 295 mg/dL. LABORATORY DATA: His latest chemistry showed a BUN of 118, sodium of 134, potassium of 3.8, chloride of 94, CO2 of 30, glucose of 222, and creatinine of 2.2. IMPRESSION AND PLAN: So, at this time, we will continue the same basal and bolus insulin regimen to offer dose equilibration and keep him on the Levemir 20 units subcutaneous at bedtime daily as ordered. We will continue the Humalog given at 6 units subcutaneous t.i.d. before meals as ordered. We will continue also the with glipizide 10 mg b.i.d. before meals as ordered. We will obtain serial chemistries and supplement accordingly as needed. We will follow. Julienne Mendoza MD
[2017-06-19] MEDS: Ipratropium 0.02% Inhal Soln (0.5 mg/2.5 ml) UD IH SCH ×4 (02:30→20:15)
[2017-06-19] MEDS: Levalbuterol 1.25 MG/3 ML Inhal Soln UD IH SCH ×4 (02:30→20:15)
--- NOTE | 2017-06-19 03:34 | PN ---
DATE: 06/18/2017 PULMONARY PROGRESS NOTE REFERRING PHYSICIAN: Arya Booker MD SUBJECTIVE: He is lying in the bed, head at 45 degrees, on nonrebreather mask, and son is at the bedside. Night unremarkable. He is arousable, gets short of breath on minimal exertion. No hemoptysis. No hematemesis. No hematuria. No diarrhea reported. OBJECTIVE: GENERAL: In no acute distress. VITAL SIGNS: Temperature is 98, heart rate is 102, respiratory rate is 30, blood pressure 124/45, and pulse oximetry of 94% on BiPAP with supplemental oxygen. HEENT: Moist mucous membranes. NECK: Supple. No JVD. LUNGS: Have a fair airflow with rhonchi. HEART: S1 and S2. ABDOMEN: Soft and nontender. No organomegaly. EXTREMITIES: No edema. NEUROLOGICALLY: Sleepy, arousable, follows simple commands. MEDICATIONS: He is on Ambien 5 mg h.s. p.r.n.; Aranesp 60 mcg subcu was given; Atrovent inhaled q. 6 hours; ferrous sulfate 150 mg daily; Flonase one spray to each nostril daily; Glucotrol 10 mg twice a day; insulin coverage, Levemir 20 units subcu h.s.; Lipitor 40 mg daily; Lovenox 30 mg subcu daily; MiraLax 17 g daily; Neurontin 100 mg daily; nasal saline p.r.n. basis; Primacor IV drip; Protonix 40 mg daily; Renagel with meals; Revatio 20 mg q.8 hours; Letairis 5 mg daily; Solu-Medrol 20 mg daily; Xanax 0.25 mg twice a day p.r.n.; Xopenex inhaled q.6 hours. LABORATORY DATA: Shows hemoglobin 9.4, hematocrit 27.6, WBC 6.9, and platelet is 125. Sodium 134, potassium 3.8, chloride 94, bicarbonate 30, BUN 118, creatinine 2.2, glucose is 222, calcium 8.9, phosphorus 4.9, magnesium 2.9, and iron of 44. AST is 28, ALT 38, alkaline phosphatase is 119, and albumin 3.1. Microbiology, blood culture and urine culture, there is no growth. IMPRESSION AND PLAN: Severe pulmonary hypertension, valvular heart disease, anemia, renal failure, diabetes. Case discussed with Dr. Joy at [facility] who is accepting doctor at [facility] in the Critical Care Unit for possible IV prostacyclin and possible inhaled nitric oxide treatment. I spoke to the patient's family. All the questions answered. I also spoke to ER staff. When bed available, the patient will be moved there. For now, continue Revatio, Letairis, Primacor. Continue BiPAP as needed. Follow up labs in the morning. Critical care time spent more than 35 minutes. Thank you and we will follow with you. Guru Bustos MD
[2017-06-19 06:30] LABS: HEMOGLOBIN 9.8 g/dL (14.0-18.0); MEAN CELL VOLUME 92.2 fl (80.0-105.0); MEAN CORPUSCULAR HEMOGLOBIN 30.7 pg (25.0-35.0); MEAN CORPUSCULAR HGB CONC 33.3 g/dl (31.0-37.0); MEAN PLATELET VOLUME 12.7 fl (7.0-11.0); RBC 3.19 10^6/uL (3.5-6.1); RED CELL DISTRIBUTION WIDTH 13.9 % (11.5-14.5); WHITE BLOOD COUNT 6.9 10^3/ul (4.5-11.0)
[2017-06-19] MEDS: Sildenafil 20 MG TAB PO SCH ×2 (07:02→13:07)
[2017-06-19 07:21] LABS: ALB/GLOB RATIO 1.1 (1.1-1.8); CALCIUM 8.9 mg/dL (8.4-10.5); MAGNESIUM 2.9 mg/dL (1.7-2.2)
[2017-06-19] MEDS ORDERED: Dextrose 50% SYRINGE Inj (50 ml) ONE (07:29)
[2017-06-19] MEDS ORDERED: Dextrose 50% SYRINGE Inj (50 ml) IVP ONE (07:30)
[2017-06-19] MEDS: Insulin Lispro 1 UNITS/0.01 ML SC SCH ×3 (08:08→16:37)
[2017-06-19] MEDS: Insulin Lispro (humaLOG) LOW Coverage SC SCH ×4 (08:09→22:12)
[2017-06-19] MEDS: Pantoprazole 20 mg EC Tab PO SCH (08:30)
[2017-06-19] MEDS: Iron Complex Polysacch 150mg Cap PO SCH (09:13)
[2017-06-19] MEDS: POLYETHYLENE GLYCOL 3350 17 GM/Dose PACKET PO SCH (09:15)
[2017-06-19] MEDS: Enoxaparin 30 mg Syringe SC SCH (09:15)
[2017-06-19] MEDS: MethylPREDNISolone 40 mg Vial IVP SCH (09:15)
[2017-06-19] MEDS: Fluticasone Nasal 50 mcg/Spray NS SCH (09:16)
[2017-06-19] MEDS: Nystatin 100,000 Units/gm Topical Pow(15 gm) TOP SCH (09:17)
[2017-06-19] MEDS: LETAIRIS 5 MG PO SCH (09:17)
[2017-06-19] MEDS ORDERED: Darbepoetin Alfa 60 mcg/ml Inj SC ONE (10:00)
--- NOTE | 2017-06-19 10:13 | CP.PCM.PN ---
<Evelio,Kovil V - Last Filed: 06/19/17 21:32> Objective - Vital Signs/Intake and Output Vital Signs (last 24 hours): Temp Pulse Resp BP Pulse Ox 97.8 F 103 H 23 160/82 H 92 L 06/19/17 12:00 06/19/17 18:00 06/19/17 18:00 06/19/17 16:00 06/19/17 18:00 - Medications Medications: Current Medications Alprazolam (Xanax) 0.25 mg PO BID PRN; Protocol PRN Reason: Anxiety Stop: 06/22/17 18:01 Last Admin: 06/18/17 09:44 Dose: 0.25 mg Atorvastatin Calcium (Lipitor) 40 mg PO DAILY [facility] Last Admin: 06/19/17 09:13 Dose: 40 mg Enoxaparin Sodium (Lovenox) 30 mg SC DAILY [facility] PRN Reason: Protocol Last Admin: 06/19/17 09:15 Dose: 30 mg Fluticasone Propionate (Flonase) 1 actuation NS DAILY [facility] Last Admin: 06/19/17 09:16 Dose: 1 spr Gabapentin (Neurontin) 100 mg PO DAILY [facility] Last Admin: 06/19/17 09:14 Dose: 100 mg Glipizide (Glucotrol) 10 mg PO 0730,1630 [facility] Last Admin: 06/19/17 16:25 Dose: 10 mg Home Med (Home Med) 1 unit PO DAILY [facility] Last Admin: 06/19/17 09:17 Dose: 1 unit Milrinone Lactate/Dextrose (Primacor 20mg/100ml D5w) 100 mls @ 4.297 mls/hr IV .[id number] PRN; Protocol; 0.2 MCG/KG/MIN PRN Reason: TITRATE PER MD ORDER Last Admin: 06/18/17 22:44 Dose: 0.2 mcg/kg/min, 4.297 mls/hr Iron Sucrose 200 mg/ Sodium (Chloride) 110 mls @ 110 mls/hr IVPB ONCE ONE Stop: 06/20/17 10:59 Insulin Detemir (Levemir) 10 unit SC HS [facility] Insulin Human Lispro (Humalog Low) 0 units SC ACHS [facility] PRN Reason: Protocol Last Admin: 06/19/17 16:31 Dose: Not Given Ipratropium [place] (Atrovent) 0.5 mg IH [id number] [facility] Last Admin: 06/19/17 13:34 Dose: 0.5 mg Levalbuterol HCl (Xopenex) 1.25 mg IH [id number] [facility] Last Admin: 06/19/17 13:34 Dose: 1.25 mg Levalbuterol HCl (Xopenex) 0.63 mg IH [id number] PRN PRN Reason: Shortness of Breath Last Admin: 06/15/17 15:07 Dose: 0.63 mg Methylprednisolone (Solu-Medrol) 20 mg IVP DAILY [facility] Last Admin: 06/19/17 09:15 Dose: 20 mg Atomoxetine Hcl [ (Strattera] 60 Mg) 60 mg PO DAILY [facility] Last Admin: 06/19/17 09:18 Dose: Not Given Nystatin (Nystop Topical Powder) 0 gm TOP DAILY [facility] Last Admin: 06/19/17 09:17 Dose: 1 applic Pantoprazole Sodium (Protonix Ec Tab) 20 mg PO ACB [facility] Last Admin: 06/19/17 08:30 Dose: 20 mg Polyethylene Glycol (Miralax) 17 gm PO DAILY [facility] Last Admin: 06/19/17 09:15 Dose: 17 gm Polysaccharide Iron Complex (Ferrex-150) 150 mg PO DAILY [facility] Last Admin: 06/19/17 09:13 Dose: 150 mg Sevelamer HCl (Renagel) 800 mg PO TID [facility] Last Admin: 06/19/17 13:07 Dose: 800 mg Sildenafil Citrate (Revatio) 20 mg PO Q8 [facility] Last Admin: 06/19/17 13:07 Dose: 20 mg Sodium Chloride ([place] Nasal [place]) 0 ml NS TID PRN PRN Reason: Nasal congestion Zolpidem Tartrate (Ambien) 5 mg PO HS PRN; Protocol PRN Reason: Insomnia Last Admin: 06/16/17 23:05 Dose: 5 mg - Labs Labs: 06/19/17 05:30 06/19/17 05:30 PT 15.4 SECONDS (9.4-12.5) H 05/31/17 19:20 INR 1.40 (0.93-1.08) H 05/31/17 19:20 APTT 29.6 Seconds (25.1-36.5) 05/31/17 19:20 Attending/Attestation - Attestation I have personally seen and examined this patient.: Yes I have fully participated in the care of the patient.: Yes I have reviewed all pertinent clinical information, including history, physical exam and plan: Yes Notes (Text): This is an addendum to GI progress report dictated by Juliana Junior APN.The patient was seen and examined earlier. Medical records, lab studies, imagings were reviewed. Last 24 hours events reviewed. Agreed with the above treatment plan as outlined in Juliana Junior APN's notes the with the addition of the following Patient is on BiPAP No complaints of abdominal pain Hemoglobin stable We'll discuss with cardiology regarding Lovenox 06/19/17 21:32 <Juliana Junior J - Last Filed: 06/20/17 10:50> Subjective - Date & Time of Evaluation Date of Evaluation: 06/19/17 Time of Evaluation: 10:03 - Subjective Subjective: S&E a bedside, chart reviewed, pt had hypoglyemia this am, 48, patient reported to have a good appetite. NO N/V or abdominal pain. Having regular BM, no overt GI bleeding reported. On BIPAP prn. Remains on Primacor drip, awaiting bed at [facility]. Objective - Vital Signs/Intake and Output Vital Signs (last 24 hours): Temp Pulse Resp BP Pulse Ox 97.6 F 93 H 20 124/51 L 97 06/19/17 08:00 06/19/17 08:00 06/19/17 08:00 06/19/17 08:00 06/19/17 08:00 Intake and Output: 06/19/17 06/19/17 06:59 18:59 Intake Total 200 Output Total 800 Balance -600 - Medications Medications: Current Medications Alprazolam (Xanax) 0.25 mg PO BID PRN; Protocol PRN Reason: Anxiety Stop: 06/22/17 18:01 Last Admin: 06/18/17 09:44 Dose: 0.25 mg Atorvastatin Calcium (Lipitor) 40 mg PO DAILY [facility] Last Admin: 06/19/17 09:13 Dose: 40 mg Enoxaparin Sodium (Lovenox) 30 mg SC DAILY [facility] PRN Reason: Protocol Last Admin: 06/19/17 09:15 Dose: 30 mg Fluticasone Propionate (Flonase) 1 actuation NS DAILY [facility] Last Admin: 06/19/17 09:16 Dose: 1 spr Gabapentin (Neurontin) 100 mg PO DAILY [facility] Last Admin: 06/19/17 09:14 Dose: 100 mg Glipizide (Glucotrol) 10 mg PO 0730,1630 [facility] Last Admin: 06/19/17 08:30 Dose: 10 mg Home Med (Home Med) 1 unit PO DAILY [facility] Last Admin: 06/19/17 09:17 Dose: 1 unit Milrinone Lactate/Dextrose (Primacor 20mg/100ml D5w) 100 mls @ 4.297 mls/hr IV .[id number] PRN; Protocol; 0.2 MCG/KG/MIN PRN Reason: TITRATE PER MD ORDER Last Admin: 06/18/17 22:44 Dose: 0.2 mcg/kg/min, 4.297 mls/hr Insulin Detemir (Levemir) 20 unit SC HS [facility] Last Admin: 06/18/17 23:01 Dose: Not Given Insulin Human Lispro (Humalog Low) 0 units SC ACHS [facility] PRN Reason: Protocol Last Admin: 06/19/17 08:09 Dose: Not Given Insulin Human Lispro (Humalog) 6 units SC AC [facility] Last Admin: 06/19/17 08:08 Dose: Not Given Ipratropium [place] (Atrovent) 0.5 mg IH [id number] [facility] Last Admin: 06/19/17 08:56 Dose: 0.5 mg Levalbuterol HCl (Xopenex) 1.25 mg IH [id number] [facility] Last Admin: 06/19/17 08:56 Dose: 1.25 mg Levalbuterol HCl (Xopenex) 0.63 mg IH [id number] PRN PRN Reason: Shortness of Breath Last Admin: 06/15/17 15:07 Dose: 0.63 mg Methylprednisolone (Solu-Medrol) 20 mg IVP DAILY [facility] Last Admin: 06/19/17 09:15 Dose: 20 mg Atomoxetine Hcl [ (Strattera] 60 Mg) 60 mg PO DAILY [facility] Last Admin: 06/19/17 09:18 Dose: Not Given Nystatin (Nystop Topical Powder) 0 gm TOP DAILY [facility] Last Admin: 06/19/17 09:17 Dose: 1 applic Pantoprazole Sodium (Protonix Ec Tab) 20 mg PO ACB [facility] Last Admin: 06/19/17 08:30 Dose: 20 mg Polyethylene Glycol (Miralax) 17 gm PO DAILY [facility] Last Admin: 06/19/17 09:15 Dose: 17 gm Polysaccharide Iron Complex (Ferrex-150) 150 mg PO DAILY [facility] Last Admin: 06/19/17 09:13 Dose: 150 mg Sevelamer HCl (Renagel) 1,600 mg PO TID [facility] Last Admin: 06/19/17 09:13 Dose: 1,600 mg Sildenafil Citrate (Revatio) 20 mg PO Q8 [facility] Last Admin: 06/19/17 07:02 Dose: 20 mg Sodium Chloride ([place]amar Nasal [place]) 0 ml NS TID PRN PRN Reason: Nasal congestion Zolpidem Tartrate (Ambien) 5 mg PO HS PRN; Protocol PRN Reason: Insomnia Last Admin: 06/16/17 23:05 Dose: 5 mg - Labs Labs: 06/19/17 05:30 06/19/17 05:30 PT 15.4 SECONDS (9.4-12.5) H 05/31/17 19:20 INR 1.40 (0.93-1.08) H 05/31/17 19:20 APTT 29.6 Seconds (25.1-36.5) 05/31/17 19:20 - Constitutional Appears: No Acute Distress - Eye Exam Eye Exam: Normal appearance. absent: Scleral icterus - ENT Exam ENT Exam: Mucous Membranes Moist - Neck Exam Neck Exam: Normal Inspection - Respiratory Exam Respiratory Exam: NORMAL BREATHING PATTERN. absent: Respiratory Distress - Cardiovascular Exam Cardiovascular Exam: +S1, +S2 - GI/Abdominal Exam GI & Abdominal Exam: Soft, Normal Bowel Sounds. absent: Guarding, Tenderness, Rebound - Extremities Exam Extremities Exam: Pedal Edema. absent: Calf Tenderness - Neurological Exam Neurological Exam: Alert, Awake, Oriented x3 - Skin Skin Exam: Dry, Warm Assessment and Plan - Assessment and Plan (Free Text) Assessment: Assessment: Elevated LFTs, improving, likely secondary to hepatic congestion Severe pulmonary hypertension Valvular heart disease, status post aortic and mitral valve repair CHF Cholelithiasis, normal CBD Acute renal failure DM Plan: Continue diet as tolerated Continue Protonix to 20mg daily in view of ARF On Lovenox on Solumedrol Continue to trend LFTs insulin to be adjusted as per medical team on Miralax on Primacor drip Awaiting transfer to [facility] for IV Prostacycline As per cardiology spoke to nursing staff. Seen and discussed with Dr. Fraser.
--- NOTE | 2017-06-19 12:19 | PN ---
DATE: SUBJECTIVE: The patient remains on BiPAP. He appears entirely comfortable. He is still awaiting a transfer to [facility] for perhaps more definitive treatment of his severe pulmonary hypertension. His renal parameters have continued to improve. He remains on ionotropic support. He remains off IV fluid hydration and continues to be in negative fluid balance. MEDICATIONS: Medication list reviewed. The patient is on Ambien, Strattera , Atrovent, iron, Flonase, Glucotrol, Letairis, insulin, Lipitor, Lovenox, MiraLax, Neurontin, [place] nasal spray, Nystatin, Primacor drip, Protonix, Renagel, Revatio, IV Solu-Medrol, Xanax, and Xopenex. OBJECTIVE: INTAKE/OUTPUT: Intake is 1272, output is 1775. VITAL SIGNS: Blood pressure is 124/51, heart rate 93, temperature 97.6, respiratory rate 20. Pulse ox 97%. HEENT: Exam shows him to be normocephalic, atraumatic. Conjunctivae remain pale. Sclerae nonicteric. NECK: Supple. No neck vein distention. CHEST: Clear to auscultation and percussion with no significant rhonchi or rales noted on exam. Slight decreased breath sounds at the bases. No wheezing. CARDIOVASCULAR: Shows a regular rate and rhythm, status post aortic valve replacement, status post mitral valve repair. Sternotomy scar well-healed. Positive soft holosystolic murmur left lower sternal border. No S3, no S4. No rub. ABDOMEN: Soft. Bowel sounds normal. No rebound or guarding or masses. EXTREMITIES: Show trace pedal edema. No cyanosis or clubbing. NEUROLOGIC: No asterixis. LABORATORY DATA AND IMAGING: CBC today, white blood cell count 6.9, stable. Hemoglobin 9.8, stable. Platelet count 135,000. Chemistries, normal electrolytes. BUN is down to 100 with a creatinine down to 1.7. His maximum BUN was 130. His baseline BUN is in the 40s. Creatinine is down from a high of 3.4 down to 1.7. Baseline creatinine is 1.1. Microbiology, all cultures are negative. Renal ultrasound done earlier during the hospitalization showed normal kidneys. ASSESSMENT: 1. Acute renal failure, prerenal azotemia, cardiorenal syndrome, all appear to be improving. BUN and creatinine are slowly falling. He remains off diuretic therapy. He remains off IV fluid hydration. He is continuing on lower doses of steroids. He does not appear to be uremic and will not require dialysis if his present trend continues. 2. History of severe pulmonary hypertension. Patient remains on multiple medications as noted above. There is a possibility for a transfer to [facility] for more definitive treatment of his pulmonary hypertension. 3. Status post hyperkalemia. Potassium levels of electrolytes normal today. 4. History of arteriosclerotic heart disease, status post coronary artery bypass grafting, history of aortic valve replacement, history of mitral valve repair; all appeared to be stable. 5. History of anemia secondary to chronic kidney disease with a superimposed iron-deficiency anemia. The patient may continue IV Venofer. The patient may continue receiving Aranesp to help stabilize his hemoglobin. Hemoglobin level is stable presently at 9.8. 6. History of secondary hyperparathyroidism. The patient's phosphorus level has improved from a high of 7.0 down to 3.2. The patient remains on binder therapy. I will decrease Renagel to 800 mg three times a day from 1600 mg. PLAN: 1. Encouraged the patient that his BUN and creatinine are going in the right direction and that dialysis will not be necessary. We will continue to try and decrease steroids. We will hold off on IV fluid hydration and hold off on diuretics on a regular basis. 2. Continue present medication for severe pulmonary hypertension. 3. Continue Primacor for ionotropic support for his cardiorenal syndrome. 4. Continue to keep I's and O's, in slightly negative fluid balance. 5. Continue Aranesp and Venofer. Discussed with ICU staff in detail. Greater than 35 minutes spent in the care of this patient. Willy Keen MD
--- NOTE | 2017-06-19 12:49 | CP.PCM.PN ---
Subjective - Date & Time of Evaluation Date of Evaluation: 06/19/17 Time of Evaluation: 10:00 - Subjective Subjective: Pt seen in ICU for f/u bilateral interdigital maceration of the 4th interspace; pt seen awake with dressings intact bilateral feet Objective - Vital Signs/Intake and Output Vital Signs (last 24 hours): Temp Pulse Resp BP Pulse Ox 97.6 F 100 H 20 124/51 L 97 06/19/17 08:00 06/19/17 11:49 06/19/17 08:00 06/19/17 08:00 06/19/17 08:00 Intake and Output: 06/19/17 06/19/17 06:59 18:59 Intake Total 200 Output Total 800 Balance -600 - Medications Medications: Current Medications Alprazolam (Xanax) 0.25 mg PO BID PRN; Protocol PRN Reason: Anxiety Stop: 06/22/17 18:01 Last Admin: 06/18/17 09:44 Dose: 0.25 mg Atorvastatin Calcium (Lipitor) 40 mg PO DAILY [facility] Last Admin: 06/19/17 09:13 Dose: 40 mg Enoxaparin Sodium (Lovenox) 30 mg SC DAILY [facility] PRN Reason: Protocol Last Admin: 06/19/17 09:15 Dose: 30 mg Fluticasone Propionate (Flonase) 1 actuation NS DAILY [facility] Last Admin: 06/19/17 09:16 Dose: 1 spr Gabapentin (Neurontin) 100 mg PO DAILY [facility] Last Admin: 06/19/17 09:14 Dose: 100 mg Glipizide (Glucotrol) 10 mg PO 0730,1630 [facility] Last Admin: 06/19/17 08:30 Dose: 10 mg Home Med (Home Med) 1 unit PO DAILY [facility] Last Admin: 06/19/17 09:17 Dose: 1 unit Milrinone Lactate/Dextrose (Primacor 20mg/100ml D5w) 100 mls @ 4.297 mls/hr IV .[id number] PRN; Protocol; 0.2 MCG/KG/MIN PRN Reason: TITRATE PER MD ORDER Last Admin: 06/18/17 22:44 Dose: 0.2 mcg/kg/min, 4.297 mls/hr Iron Sucrose 200 mg/ Sodium (Chloride) 110 mls @ 110 mls/hr IVPB ONCE ONE Stop: 06/20/17 10:59 Insulin Detemir (Levemir) 20 unit SC HS [facility] Last Admin: 06/18/17 23:01 Dose: Not Given Insulin Human Lispro (Humalog Low) 0 units SC ACHS [facility] PRN Reason: Protocol Last Admin: 06/19/17 08:09 Dose: Not Given Insulin Human Lispro (Humalog) 6 units SC AC [facility] Last Admin: 06/19/17 08:08 Dose: Not Given Ipratropium [place] (Atrovent) 0.5 mg IH [id number] [facility] Last Admin: 06/19/17 08:56 Dose: 0.5 mg Levalbuterol HCl (Xopenex) 1.25 mg IH [id number] [facility] Last Admin: 06/19/17 08:56 Dose: 1.25 mg Levalbuterol HCl (Xopenex) 0.63 mg IH [id number] PRN PRN Reason: Shortness of Breath Last Admin: 06/15/17 15:07 Dose: 0.63 mg Methylprednisolone (Solu-Medrol) 20 mg IVP DAILY [facility] Last Admin: 06/19/17 09:15 Dose: 20 mg Atomoxetine Hcl [ (Strattera] 60 Mg) 60 mg PO DAILY [facility] Last Admin: 06/19/17 09:18 Dose: Not Given Nystatin (Nystop Topical Powder) 0 gm TOP DAILY [facility] Last Admin: 06/19/17 09:17 Dose: 1 applic Pantoprazole Sodium (Protonix Ec Tab) 20 mg PO ACB [facility] Last Admin: 06/19/17 08:30 Dose: 20 mg Polyethylene Glycol (Miralax) 17 gm PO DAILY [facility] Last Admin: 06/19/17 09:15 Dose: 17 gm Polysaccharide Iron Complex (Ferrex-150) 150 mg PO DAILY [facility] Last Admin: 06/19/17 09:13 Dose: 150 mg Sevelamer HCl (Renagel) 800 mg PO TID [facility] Sildenafil Citrate (Revatio) 20 mg PO Q8 [facility] Last Admin: 06/19/17 07:02 Dose: 20 mg Sodium Chloride ([place] Nasal [place]) 0 ml NS TID PRN PRN Reason: Nasal congestion Zolpidem Tartrate (Ambien) 5 mg PO HS PRN; Protocol PRN Reason: Insomnia Last Admin: 06/16/17 23:05 Dose: 5 mg - Labs Labs: 06/19/17 05:30 06/19/17 05:30 PT 15.4 SECONDS (9.4-12.5) H 05/31/17 19:20 INR 1.40 (0.93-1.08) H 05/31/17 19:20 APTT 29.6 Seconds (25.1-36.5) 05/31/17 19:20 - Constitutional Appears: No Acute Distress - Extremities Exam Extremities Exam: Normal Capillary Refill, Tenderness. absent: Calf Tenderness , Joint Swelling, Pedal Edema Additional comments: Pt with 1/4 palpable pedal pulses bilateral Neurological sensation to the feet bilateral is intact Derm exam shoes that the interspaces are dry with no open wounds; there is a resolved corn on the medial PIPJ no longer tender with palpation bilateral heels were inspected and found to have nonfluctuant bulla with nonblancable erythema - no calor no cellulitis mild pain with palpation - no signs of infection noted Assessment and Plan - Assessment and Plan (Free Text) Assessment: b/l heel bulla resolved maceration of web spaces Plan: heels were lifted off the bed and optifoam dressings applied to the heels bilateral I spoke with the decision unit rn to get multipodus boots GUSTAVO and pt to use at all times dressing changes will be Q48 h
--- NOTE | 2017-06-19 18:21 | PN ---
DATE: 06/19/2017 PULMONARY PROGRESS NOTE REFERRING PHYSICIAN: Dr. Booker. SUBJECTIVE: He is lying in the bed on noninvasive ventilation. Night was unremarkable, comfortable. No cough or short of breath with exertion. No nausea. No vomiting. No diarrhea. No leg pain or leg swelling. OBJECTIVE: GENERAL: In no acute distress. VITAL SIGNS: Temperature is 98, heart rate is 103, respiratory rate is 20, blood pressure is 134/85, pulse oximetry is 96% on noninvasive ventilation. HEENT: Moist mucous membranes. NECK: Supple. No JVD. LUNGS: Has a fair airflow with rhonchi. HEART: S1 and S2. ABDOMEN: Soft and nontender. No organomegaly. EXTREMITIES: There is no edema. NEUROLOGIC: Awake and alert. Follows simple commands. MEDICATIONS: He is on Ambien 5 mg at bedtime p.r.n., Atrovent inhaled q. 6 hours, Ferrex 150 mg daily, Flonase one spray to each nostril daily, glipizide 10 mg twice a day, insulin coverage, also on iron sucrose 200 mg daily, Levemir 10 units subcutaneously at bedtime, Lipitor 40 mg daily, Lovenox 30 mg subcutaneously daily, MiraLax 17 g daily, Neurontin 100 mg daily, nystatin powder to affected area twice a day and nasal saline one spray to each nostril q. 8 hours p.r.n., Primacor IV drip, Protonix 40 mg daily, Renagel 800 mg three times a day, Revatio 20 mg q. 8 hours, Letairis 5 mg daily, Solu-Medrol 20 mg IV daily, Xanax 0.25 mg twice a day p.r.n., Xopenex inhaled q. 6 hours. LABORATORY DATA: Shows hemoglobin 9.8, hematocrit 29.4, WBC 6.9, platelet count is 135. Sodium 137, potassium 3.6, chloride 98, bicarbonate 31, BUN 100, creatinine 1.7, glucose 85, calcium 8.9, phosphorus 3.2, magnesium 2.9, AST 30, ALT 35, alkaline phosphatase 107, and albumin is 3.0. Microbiology: Blood culture and urine culture, there is no growth. IMPRESSION AND PLAN: Severe pulmonary hypertension, valvular heart disease, anemia, renal failure, diabetes. Spoke to nursing staff, also spoke to respiratory therapist, did well overnight. Continue noninvasive ventilation as needed. Continue Primacor, Revatio and also Letairis. Awaiting to be transferred to [facility] for possible IV prostacyclin and inhaled nitric oxide. For now, continue small dose of diuretics also. 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 Followup labs in the morning. Critical care time spent more than 35 minutes. Thank you and we will follow with you. Guru Bustos MD
[2017-06-19] MEDS: Levalbuterol 0.63 MG/3 ML Inhal Soln UD IH PRN (18:30)
--- NOTE | 2017-06-19 18:59 | CP.PCM.PN ---
Subjective - Date & Time of Evaluation Date of Evaluation: 06/19/17 Time of Evaluation: 18:58 - Subjective Subjective: Patient was seen at bedside. He complains of sob, anxiousness. Denies chest pain. Pulse ox 95 % on 05/20 40%.BP:160/82 HR:115/min. Medical record was reviewed. This 82 year old male was admitted with respiratory distress. Has PMH of COPD, CHRISTI, pulmonary HTN, AVR,MVR, CAD, ,BPH, peripheral neuropathy , depression, urinary incontinence ,bypass surgery. . Objective - Vital Signs/Intake and Output Vital Signs (last 24 hours): Temp Pulse Resp BP Pulse Ox 97.8 F 103 H 23 160/82 H 92 L 06/19/17 12:00 06/19/17 18:00 06/19/17 18:00 06/19/17 16:00 06/19/17 18:00 Intake and Output: 06/19/17 06/19/17 06:59 18:59 Intake Total 200 Output Total 800 Balance -600 - Medications Medications: Current Medications Alprazolam (Xanax) 0.25 mg PO BID PRN; Protocol PRN Reason: Anxiety Stop: 06/22/17 18:01 Last Admin: 06/18/17 09:44 Dose: 0.25 mg Atorvastatin Calcium (Lipitor) 40 mg PO DAILY [facility] Last Admin: 06/19/17 09:13 Dose: 40 mg Enoxaparin Sodium (Lovenox) 30 mg SC DAILY [facility] PRN Reason: Protocol Last Admin: 06/19/17 09:15 Dose: 30 mg Fluticasone Propionate (Flonase) 1 actuation NS DAILY [facility] Last Admin: 06/19/17 09:16 Dose: 1 spr Gabapentin (Neurontin) 100 mg PO DAILY [facility] Last Admin: 06/19/17 09:14 Dose: 100 mg Glipizide (Glucotrol) 10 mg PO 0730,1630 [facility] Last Admin: 06/19/17 16:25 Dose: 10 mg Home Med (Home Med) 1 unit PO DAILY [facility] Last Admin: 06/19/17 09:17 Dose: 1 unit Milrinone Lactate/Dextrose (Primacor 20mg/100ml D5w) 100 mls @ 4.297 mls/hr IV .[id number] PRN; Protocol; 0.2 MCG/KG/MIN PRN Reason: TITRATE PER MD ORDER Last Admin: 06/18/17 22:44 Dose: 0.2 mcg/kg/min, 4.297 mls/hr Iron Sucrose 200 mg/ Sodium (Chloride) 110 mls @ 110 mls/hr IVPB ONCE ONE Stop: 06/20/17 10:59 Insulin Detemir (Levemir) 10 unit SC HS [facility] Insulin Human Lispro (Humalog Low) 0 units SC ACHS [facility] PRN Reason: Protocol Last Admin: 06/19/17 16:31 Dose: Not Given Insulin Human Lispro (Humalog) 3 units SC ACHS [facility] Last Admin: 06/19/17 16:37 Dose: 3 units Ipratropium [place] (Atrovent) 0.5 mg IH [id number] [facility] Last Admin: 06/19/17 13:34 Dose: 0.5 mg Levalbuterol HCl (Xopenex) 1.25 mg IH [id number] [facility] Last Admin: 06/19/17 13:34 Dose: 1.25 mg Levalbuterol HCl (Xopenex) 0.63 mg IH [id number] PRN PRN Reason: Shortness of Breath Last Admin: 06/15/17 15:07 Dose: 0.63 mg Methylprednisolone (Solu-Medrol) 20 mg IVP DAILY [facility] Last Admin: 06/19/17 09:15 Dose: 20 mg Atomoxetine Hcl [ (Strattera] 60 Mg) 60 mg PO DAILY [facility] Last Admin: 06/19/17 09:18 Dose: Not Given Nystatin (Nystop Topical Powder) 0 gm TOP DAILY [facility] Last Admin: 06/19/17 09:17 Dose: 1 applic Pantoprazole Sodium (Protonix Ec Tab) 20 mg PO ACB [facility] Last Admin: 06/19/17 08:30 Dose: 20 mg Polyethylene Glycol (Miralax) 17 gm PO DAILY [facility] Last Admin: 06/19/17 09:15 Dose: 17 gm Polysaccharide Iron Complex (Ferrex-150) 150 mg PO DAILY [facility] Last Admin: 06/19/17 09:13 Dose: 150 mg Sevelamer HCl (Renagel) 800 mg PO TID [facility] Last Admin: 06/19/17 13:07 Dose: 800 mg Sildenafil Citrate (Revatio) 20 mg PO Q8 [facility] Last Admin: 06/19/17 13:07 Dose: 20 mg Sodium Chloride ([place] Nasal [place]) 0 ml NS TID PRN PRN Reason: Nasal congestion Zolpidem Tartrate (Ambien) 5 mg PO HS PRN; Protocol PRN Reason: Insomnia Last Admin: 06/16/17 23:05 Dose: 5 mg - Labs Labs: 06/19/17 05:30 06/19/17 05:30 PT 15.4 SECONDS (9.4-12.5) H 05/31/17 19:20 INR 1.40 (0.93-1.08) H 05/31/17 19:20 APTT 29.6 Seconds (25.1-36.5) 05/31/17 19:20 Micro Results 06/12/17 14:20 Blood Blood Culture - Final NO GROWTH AFTER 5 DAYS 06/12/17 14:20 Blood Gram Stain - Final TEST NOT PERFORMED 06/12/17 14:00 Blood Blood Culture - Final NO GROWTH AFTER 5 DAYS 06/12/17 14:00 Blood Gram Stain - Final TEST NOT PERFORMED 06/12/17 14:40 Urine Urine Culture - Final No Growth (<1,000 CFU/ML) Most Recent Lab Values WBC 6.9 10^3/ul (4.5-11.0) 06/19/17 05:30 RBC 3.19 10^6/uL (3.5-6.1) L 06/19/17 05:30 Hgb 9.8 g/dL (14.0-18.0) L 06/19/17 05:30 Hct 29.4 % (42.0-52.0) L 06/19/17 05:30 MCV 92.2 fl (80.0-105.0) 06/19/17 05:30 MCH 30.7 pg (25.0-35.0) 06/19/17 05:30 MCHC 33.3 g/dl (31.0-37.0) 06/19/17 05:30 RDW 13.9 % (11.5-14.5) 06/19/17 05:30 Plt Count 135 10^3/uL (120.0-450.0) 06/19/17 05:30 MPV 12.7 fl (7.0-11.0) H 06/19/17 05:30 Gran % 94.6 % (50.0-68.0) H 06/16/17 05:00 Lymph % (Auto) 3.5 % (22.0-35.0) L 06/16/17 05:00 [place] % (Auto) 1.9 % (1.0-6.0) 06/16/17 05:00 Eos % (Auto) 0.0 % (1.5-5.0) L 06/16/17 05:00 Baso % (Auto) 0.0 % (0.0-3.0) 06/16/17 05:00 Gran # 9.79 (1.4-6.5) H 06/16/17 05:00 Lymph # 0.4 (1.2-3.4) L 06/16/17 05:00 [place] # 0.2 (0.1-0.6) 06/16/17 05:00 Eos # 0.0 (0.0-0.7) 06/16/17 05:00 Baso # 0.00 K/mm3 (0.0-2.0) 06/16/17 05:00 Neutrophils % (Manual) 94 % (50.0-70.0) H 06/15/17 10:50 Band Neutrophils % 2 % (0-2) 06/04/17 05:45 Lymphocytes % (Manual) 3 % (22.0-35.0) L 06/15/17 10:50 Monocytes % (Manual) 3 % (1.0-6.0) 06/15/17 10:50 Platelet Evaluation Normal (NORMAL) 06/15/17 10:50 Large Platelets Present 06/12/17 06:40 Poikilocytosis (manual Slight 06/15/17 10:50 Smear Path Review Cancelled 06/15/17 10:50 PT 15.4 SECONDS (9.4-12.5) H 05/31/17 19:20 INR 1.40 (0.93-1.08) H 05/31/17 19:20 APTT 29.6 Seconds (25.1-36.5) 05/31/17 19:20 D-Dimer, Quantitative 371 ng/mL (0-243) H 06/11/17 15:35 pCO2 46 mm/Hg (35-45) H 06/12/17 05:00 pO2 116.0 mm/Hg (80-100) H 06/12/17 05:00 HCO3 31.2 mmol/L (21-28) H 06/12/17 05:00 ABG pH 7.44 (7.35-7.45) 06/12/17 05:00 ABG Total CO2 32.6 mmol.L (22-28) H 06/12/17 05:00 ABG O2 Saturation 99.5 % (95-98) H 06/12/17 05:00 ABG O2 Content 14.0 ML/dl (15-23) L 06/12/17 05:00 ABG Base Excess 6.3 mmol/L (-2.0-3.0) H 06/12/17 05:00 ABG Hemoglobin 10.2 g/dL (11.7-17.4) L 06/12/17 05:00 ABG Carboxyhemoglobin 2.3 % (0.5-1.5) H 06/12/17 05:00 POC ABG HHb (Measured) 0.5 % (0-5) 06/12/17 05:00 ABG Methemoglobin 0.9 % (0.0-3.0) 06/12/17 05:00 ABG O2 Capacity 14.1 mL/dl (16-24) L 06/12/17 05:00 Hgb O2 Saturation 96.2 % (95.0-98.0) 06/12/17 05:00 FiO2 40.0 % 06/12/17 05:00 Sodium 137 mmol/L (132-148) 06/19/17 05:30 Potassium 3.6 mmol/L (3.6-5.0) 06/19/17 05:30 Chloride 98 mmol/L (98-107) 06/19/17 05:30 Carbon Dioxide 31 mmol/L (21-33) 06/19/17 05:30 Anion Gap 12 (10-20) 06/19/17 05:30 BUN 100 mg/dL (7-21) H 06/19/17 05:30 Creatinine 1.7 mg/dl (0.8-1.5) H 06/19/17 05:30 Est GFR ( Amer) 47 06/19/17 05:30 Est GFR (Non-Af Amer) 39 06/19/17 05:30 POC Glucose (mg/dL) 275 mg/dL (65-110) H 06/19/17 16:09 Random Glucose 85 mg/dL (70-110) 06/19/17 05:30 Calcium 8.9 mg/dL (8.4-10.5) 06/19/17 05:30 Phosphorus 3.2 mg/dL (2.5-4.5) 06/19/17 05:30 Magnesium 2.9 mg/dL (1.7-2.2) H 06/19/17 05:30 Iron 44 ug/dL (45-180) L 06/18/17 06:30 TIBC 313 ug/dL (261-462) 06/18/17 06:30 % Saturation 14 % (20-55) L 06/18/17 06:30 Ferritin 107.0 ng/mL 06/17/17 06:30 Total Bilirubin 0.9 mg/dL (0.2-1.3) 06/19/17 05:30 AST 30 U/L (17-59) 06/19/17 05:30 ALT 35 U/L (7-56) 06/19/17 05:30 Alkaline Phosphatase 107 U/L (38-126) 06/19/17 05:30 Lactate Dehydrogenase 745 U/L (333-699) H 05/31/17 19:20 Total Creatine Kinase 81 U/L (35-230) 05/31/17 19:20 Troponin I 0.03 ng/mL 06/01/17 09:25 NT-Pro-B Natriuret Pep 5110 pg/mL (0-450) H 06/13/17 10:00 Total Protein 5.9 g/dL (5.8-8.3) 06/19/17 05:30 Albumin 3.0 g/dL (3.0-4.8) 06/19/17 05:30 Globulin 2.9 gm/dL 06/19/17 05:30 Albumin/Globulin Ratio 1.1 (1.1-1.8) 06/19/17 05:30 Procalcitonin 0.22 NG/ML (0.19-0.49) 06/12/17 14:00 Urine Color Yellow (YELLOW) 06/12/17 14:40 Urine Appearance Clear (CLEAR) 06/12/17 14:40 Urine pH 5.5 (4.7-8.0) 06/12/17 14:40 Ur Specific [place] 1.010 (1.005-1.035) 06/12/17 14:40 Urine Protein Trace mg/dL (<30 mg/dL) H 06/12/17 14:40 Urine Glucose (UA) 100 mg/dL (NEGATIVE) H 06/12/17 14:40 Urine Ketones Negative mg/dL (NEGATIVE) 06/12/17 14:40 Urine Blood Moderate (NEGATIVE) H 06/12/17 14:40 Urine Nitrate Negative (NEGATIVE) 06/12/17 14:40 Urine Bilirubin Negative (NEGATIVE) 06/12/17 14:40 Urine Urobilinogen 0.2 E.U./dL (<1 E.U./dL) 06/12/17 14:40 Ur Leukocyte Esterase Small [place]/uL (NEGATIVE) H 06/12/17 14:40 Urine RBC 15 - 20 /hpf (0-2) 06/12/17 14:40 Urine WBC 5 - 10 /hpf (0-6) 06/12/17 14:40 Ur Epithelial Cells 0 - 2 /hpf (0-5) 06/12/17 14:40 Amorphous Sediment Few 06/12/17 14:40 Urine Bacteria Many (NEG) 06/12/17 14:40 Ur Random Creatinine 111 mg/dL 06/14/17 15:20 U Random Total Protein 19 mg/L 06/14/17 15:20 Ur Random Sodium 10 meq/L 06/14/17 15:20 - Constitutional Appears: No Acute Distress - Head Exam Head Exam: ATRAUMATIC, NORMAL INSPECTION, NORMOCEPHALIC Additional comments: BiPAP mas is on. - Eye Exam Eye Exam: Normal appearance - ENT Exam ENT Exam: Mucous Membranes Dry - Neck Exam Neck Exam: Normal Inspection - Respiratory Exam Respiratory Exam: Decreased Breath Sounds (Left side .) - Cardiovascular Exam Cardiovascular Exam: REGULAR RHYTHM - GI/Abdominal Exam GI & Abdominal Exam: absent: Distended - Rectal Exam Rectal Exam: Deferred - Exam Additional comments: Deferred. - Extremities Exam Extremities Exam: Normal Inspection - Back Exam Back Exam: NORMAL INSPECTION - Neurological Exam Neurological Exam: Awake - Psychiatric Exam Psychiatric exam: Anxious - Skin Skin Exam: Normal Color Assessment and Plan - Assessment and Plan (Free Text) Assessment: Anxiety. Pulmonary HTN. COPD. CHRISTI. Depression. BPH. Plan: Ativan 0.5 mg IV x 1. CXR.------------>May be slight increase in left lower lobe airspace disease/ pulmonary infiltrate. Continue present management. Awaiting to go to [facility].
--- NOTE | 2017-06-19 21:15 | PN ---
DATE: 06/19/2017 REASON FOR CONSULTATION AND FOLLOWUP: Cardiac evaluation, severe pulmonary hypertension, coronary artery disease awaiting to be transferred to [facility]. SUBJECTIVE: The patient complaints of less shortness of breath on CPAP. OBJECTIVE: GENERAL: Not in apparent distress on IV amiodarone. VITAL SIGNS: As follows; temperature afebrile, heart rate of 102, and blood pressure 134/55. HEENT: PERRLA intact. NECK: Supple. No carotid bruit or thyromegaly. CHEST: Clear to auscultation. HEART: S1 and S2 regular. ABDOMEN: Soft. EXTREMITIES: Clubbing and cyanosis negative. 1 to 2+ pedal edema. LABORATORY DATA: WBC 6.9, hemoglobin 9.2, hematocrit of 29.4, and platelet count of 135. Chemistry shows sodium 137, potassium of 3.6, chloride 98, carbon dioxide 31, anion gap 12, BUN , and creatinine 1.7. IMPRESSION: Acute kidney injury resolving, severe pulmonary hypertension, coronary artery disease, preserved left ventricular function, status post 1-vessel bypass, status post aortic valve bioprosthetic replacement, mitral valve repair, right ventricular systolic pressure by right heart catheterization. RECOMMENDATIONS: Continue Revatio. Continue milrinone, monitor renal function closely, awaiting to be transferred to [facility] for definite therapy for pulmonary hypertension for prostacyclin inhibitors and bosentan antagonist. Long-term prognosis is guarded. Thank you Dr. Booker for providing us the opportunity in taking care of the patient, Emory Arboldea. Guru Sosa MD
--- NOTE | 2017-06-19 21:50 | PN ---
DATE: SUBJECTIVE: The patient in ICU, still waiting for bed to [facility]. He seems comfortable. No respiratory distress. No fever. No nausea. No vomiting. PHYSICAL EXAMINATION: VITAL SIGNS: Temperature 97.8, heart rate 97, blood pressure 134/55, respirations 20, saturation 97%. HEAD AND NECK: Normal. No thyromegaly. There is positive JVD. CHEST: Clear. CARDIAC: First sound and second sound normal. There is systolic murmur across the aortic area. ABDOMEN: Soft, nontender. EXTREMITIES: Edema in the foot area. NEUROLOGIC: Normal. LABORATORY DATA: Laboratory study shows white count 6.9, hemoglobin 9.8, hematocrit 29.4, platelets 135. Chemistry noted for sodium 137, potassium 3.6, chloride 98, bicarb 31, BUN 100, creatinine 1.7, blood sugar 105. The patient has magnesium 2.9 and liver enzymes are normal. IMPRESSION AND PLAN: 1. Respiratory failure, multifactorial. The patient is getting bilevel positive airway pressure support. Continue nebulizer treatment, Solu-Medrol intravenous and pulmonary hypertension medications which are Revatio and also Letairis. The patient is also getting intravenous milrinone. At this time, we will continue current therapy until we get a bed in [facility] for intravenous prostacyclin. We still have difficult time to get the bed because of busy place. 2. Chronic obstructive pulmonary disease, obstructive sleep apnea. Continue inhaled bronchodilator, bilevel positive airway pressure. 3. Coronary artery disease, status post aortic valve replacement, biologic valve and also mitral valve repair. The patient seems doing well with intravenous milrinone, stable. Breathing quiroga is better. 4. Acute renal failure seems better. Creatinine went down to 1.7, which is much much better than before. We will continue current therapy. 5. Diabetes. Continue Levemir and continue coverage before meals. We will cut down the insulin somehow from 6 units to 3 units before meals and we will cut down the Levemir 50 to 70 whatever he is taking and we will followup because the patient did have an episode of hypoglycemia. 6. Anemia. Seen by industrial real estate agent. He is getting iron intravenous, getting iron p.o. and he got a shot of an Epogen-like products. 7. Depression and anxiety. Continue Xanax, Strattera and Wellbutrin. Arya Booker MD [facility] # [id number]
[2017-06-19] MEDS: Milrinone 20mg/100ml D5W 100 ML IV PRN (22:08)
[2017-06-19] MEDS: Insulin Detemir 100 units/ml Vial (Levemir) SC SCH (22:15)
--- NOTE | 2017-06-20 00:25 | PN ---
DATE: ENDOCRINOLOGY FOLLOWUP NOTE LOCATION: In ICU room 128. SUBJECTIVE: This is an 82-year-old male admitted with congestive heart failure and supervening hyperglycemic acceleration, and is now being followed closely for metabolic and diabetic management. His glycemic levels are fluctuating but improved at this time, and the latest glucose levels have ranged from 114 to 168 and mg/dL. LABORATORY DATA: The chemistry showed a BUN of 100, sodium 137, potassium of 3.6, chloride of 98, CO2 of 31, glucose 85, and creatinine of 1.7. IMPRESSION AND PLAN: So, at this time, we will modify and lower the basal insulin Levemir given as 10 units subcutaneous at bedtime daily and we will actually discontinue the Humalog given as 3 units t.i.d. and at bedtime as ordered. We will continue; however, with low-dose correction scale using Humalog insulin as ordered. We will obtain serial chemistries and supplement accordingly as needed. We will follow. Julienne Mendoza MD
[2017-06-20] MEDS: Sildenafil 20 MG TAB PO SCH ×3 (01:28→22:03)
[2017-06-20] MEDS: Ipratropium 0.02% Inhal Soln (0.5 mg/2.5 ml) UD IH SCH ×3 (02:51→20:18)
[2017-06-20] MEDS: Levalbuterol 1.25 MG/3 ML Inhal Soln UD IH SCH ×3 (02:52→20:18)
[2017-06-20 07:07] LABS: HEMOGLOBIN 9.3 g/dL (14.0-18.0); MEAN CELL VOLUME 93.7 fl (80.0-105.0); MEAN CORPUSCULAR HEMOGLOBIN 30.8 pg (25.0-35.0); MEAN CORPUSCULAR HGB CONC 32.9 g/dl (31.0-37.0); MEAN PLATELET VOLUME 12.4 fl (7.0-11.0); RBC 3.02 10^6/uL (3.5-6.1); RED CELL DISTRIBUTION WIDTH 13.9 % (11.5-14.5); WHITE BLOOD COUNT 6.1 10^3/ul (4.5-11.0)
[2017-06-20 07:43] LABS: ALBUMIN 2.8 g/dL (3.0-4.8); CALCIUM 8.7 mg/dL (8.4-10.5)
[2017-06-20] MEDS: Insulin Lispro (humaLOG) LOW Coverage SC SCH ×3 (08:25→22:03)
--- NOTE | 2017-06-20 08:34 | RAD ---
HISTORY: sob/anxious.Diminished air entry left side. COMPARISON: Comparison is made with 06/15/2017 FINDINGS: LUNGS: Cyst left perihilar opacities and haziness appears larger and more conspicuous compared to the previous exam. S interval mild improvement in the right lung since the previous study. PLEURA: No significant pleural effusion identified, no pneumothorax apparent. CARDIOVASCULAR: The cardiac silhouette is mildly enlarged. The patient is status post sternotomy. OSSEOUS STRUCTURES: No significant abnormalities. VISUALIZED UPPER ABDOMEN: Normal. OTHER FINDINGS: None. IMPRESSION: Heterogeneous patchy opacities at the left perihilar region appear more conspicuous and larger compared to the previous exam.
[2017-06-20] MEDS ORDERED: Potassium Chloride 20 mEq ER Tab PO ONE (08:42)
--- NOTE | 2017-06-20 09:16 | PN ---
DATE: 06/18/2017 SUBJECTIVE: The patient is in ICU, doing better, stable clinically, and no chest pain. No nausea. No vomiting. He is getting IV iron, seen by Nephrology. The patient seems doing very well. I am still waiting for a bed to [facility]. PHYSICAL EXAMINATION: VITAL SIGNS: As follows, temperature 98.4, heart rate 106, blood pressure 141/67, respirations 23, and saturations 95%. HEAD AND NECK: Normal. No JVD. No thyromegaly. CHEST: Clear. Good air entry. CARDIAC: First sound and second sounds normal. There is a systolic murmur across the aortic area. ABDOMEN: Soft and nontender. EXTREMITIES: No edema with except in the feet area dorsum of the foot. NEUROLOGIC: Moves all extremities. Alert, awake, and oriented x3. LABORATORY DATA: white count 6.9, hemoglobin 9.4, hematocrit 27.6, and platelets 125. Chemistry shows sodium of 134, potassium 3.8, chloride 94, bicarbonate 30, BUN 118, and creatinine 2.2. The patient has phosphorus of 4.9 that is coming down and magnesium 2.9. Blood sugar 220 to 150. IMPRESSION AND PLAN: 1. Acute respiratory failure on top of severe pulmonary hypertension with worsening symptoms. Right now the patient seems stable, doing better. He is saturating into 95%. He is using BiPAP intermittently and seems to be doing better. We are awaiting for a bed for [facility] for IV prostacyclin. 2. severe pulmonary hypertension: The patient is getting BiPAP, inhaled bronchodilators, steroids and still getting Revatio 20 mg t.i.d. and still getting Letairis 5 mg daily. Paper workup for the other planned has came in, sent back from [facility] pharmacy and we will forward to Dr. Bustos to continue filling the information needed for the medicine to be given. Discussed with Dr. Bustos. We will continue to follow up on that. 3. Diabetes, insulin-dependent, seen by Endocrinology: Continue current recommendations. Blood sugar running better. 4. Acute renal failure, seems doing well: Creatinine came down to 2.2 from 3.4, which is gradually improving. We will continue to monitor. Etiology is most likely prerenal due to cardiac and diuresis. We will follow up on that. Continue to follow up his summer camp counselor on that. 5. Depression and anxiety: Continue Xanax and Strattera. For depression, he was getting Wellbutrin before. Continue current therapy. MEDICATIONS: Right now, he is getting is as follows, Ambien 5 mg at night, Aranesp he got 60 mg subcu once for stimulating his iron manufacturing the bone marrow, Strattera 60 mg daily, nebulizer treatment, iron pills 150 p.o. daily, Flonase, Glucotrol 10 mg, Humalog 6 units before meals and Levemir 20 units once a day, Lipitor 40 mg, Lovenox 30 mg subcu daily, MiraLax, Neurontin, nystatin powder, [place] nasal spray, Primacor IV for right-sided heart failure and increased cardiac output, Protonix 40, Renagel was given 1600 p.o. t.i.d., Revatio 20 mg t.i.d., Solu-Medrol 20 IV daily, and Xanax 0.25 mg b.i.d. p.r.n. Continue Xopenex. Continue current management. Current therapy. He seems slowly improving, stable enough to be transferred to [facility] anytime. We will repeat labs in the morning. We will follow up as a admissions consultant. Arya Booker MD
[2017-06-20] MEDS: Fluticasone Nasal 50 mcg/Spray NS SCH (09:19)
[2017-06-20] MEDS: Iron Complex Polysacch 150mg Cap PO SCH (09:19)
[2017-06-20] MEDS: LETAIRIS 5 MG PO SCH (09:20)
[2017-06-20] MEDS: POLYETHYLENE GLYCOL 3350 17 GM/Dose PACKET PO SCH (09:21)
[2017-06-20] MEDS: Enoxaparin 30 mg Syringe SC SCH (09:21)
[2017-06-20] MEDS: Nystatin 100,000 Units/gm Topical Pow(15 gm) TOP SCH (09:22)
[2017-06-20] MEDS: Pantoprazole 20 mg EC Tab PO SCH (09:24)
[2017-06-20] MEDS: MethylPREDNISolone 40 mg Vial IVP SCH (09:24)
--- NOTE | 2017-06-20 10:51 | CP.PCM.PN ---
<Juliana Junior - Last Filed: 06/20/17 10:50> Subjective - Date & Time of Evaluation Date of Evaluation: 06/20/17 Time of Evaluation: 09:00 - Subjective Subjective: S&E at bedside, chart reviewed, tolerating oral intake., No reports of overt GI bleeding. No N/V or abdomianl pain. Patient c/o feeling SOB, request for bipap. no respiratory distress. Objective - Vital Signs/Intake and Output Vital Signs (last 24 hours): Temp Pulse Resp BP Pulse Ox 98.3 F 99 H 25 H 129/47 L 93 L 06/20/17 05:00 06/20/17 06:00 06/20/17 06:00 06/20/17 04:00 06/20/17 06:00 Intake and Output: 06/20/17 06/20/17 06:59 18:59 Intake Total 324 Output Total 700 Balance -376 - Medications Medications: Current Medications Alprazolam (Xanax) 0.25 mg PO BID PRN; Protocol PRN Reason: Anxiety Stop: 06/22/17 18:01 Last Admin: 06/18/17 09:44 Dose: 0.25 mg Atorvastatin Calcium (Lipitor) 40 mg PO DAILY [facility] Last Admin: 06/20/17 09:21 Dose: 40 mg Enoxaparin Sodium (Lovenox) 30 mg SC DAILY [facility] PRN Reason: Protocol Last Admin: 06/20/17 09:21 Dose: 30 mg Fluticasone Propionate (Flonase) 1 actuation NS DAILY [facility] Last Admin: 06/20/17 09:19 Dose: 1 spr Gabapentin (Neurontin) 100 mg PO DAILY [facility] Last Admin: 06/20/17 09:22 Dose: 100 mg Glipizide (Glucotrol) 10 mg PO 0730,1630 [facility] Last Admin: 06/20/17 08:27 Dose: 10 mg Home Med (Home Med) 1 unit PO DAILY [facility] Last Admin: 06/20/17 09:20 Dose: 1 unit Milrinone Lactate/Dextrose (Primacor 20mg/100ml D5w) 100 mls @ 4.297 mls/hr IV .[id number] PRN; Protocol; 0.2 MCG/KG/MIN PRN Reason: TITRATE PER MD ORDER Last Admin: 06/19/17 22:08 Dose: 0.2 mcg/kg/min, 4.297 mls/hr Iron Sucrose 200 mg/ Sodium (Chloride) 110 mls @ 110 mls/hr IVPB ONCE ONE Stop: 06/20/17 10:59 Insulin Detemir (Levemir) 10 unit SC HS [facility] Last Admin: 06/19/17 22:15 Dose: 10 unit Insulin Human Lispro (Humalog Low) 0 units SC ACHS BAKARI PRN Reason: Protocol Last Admin: 06/20/17 08:25 Dose: Not Given Ipratropium [place] (Atrovent) 0.5 mg IH [id number] [facility] Last Admin: 06/20/17 02:51 Dose: 0.5 mg Levalbuterol HCl (Xopenex) 1.25 mg IH [id number] [facility] Last Admin: 06/20/17 02:52 Dose: 1.25 mg Levalbuterol HCl (Xopenex) 0.63 mg IH [id number] PRN PRN Reason: Shortness of Breath Last Admin: 06/19/17 18:30 Dose: 0.63 mg Methylprednisolone (Solu-Medrol) 20 mg IVP DAILY [facility] Last Admin: 06/20/17 09:24 Dose: 20 mg Atomoxetine Hcl [ (Strattera] 60 Mg) 60 mg PO DAILY [facility] Last Admin: 06/19/17 09:18 Dose: Not Given Nystatin (Nystop Topical Powder) 0 gm TOP DAILY [facility] Last Admin: 06/20/17 09:22 Dose: 1 applic Pantoprazole Sodium (Protonix Ec Tab) 20 mg PO ACB [facility] Last Admin: 06/20/17 09:24 Dose: 20 mg Polyethylene Glycol (Miralax) 17 gm PO DAILY [facility] Last Admin: 06/20/17 09:21 Dose: 17 gm Polysaccharide Iron Complex (Ferrex-150) 150 mg PO DAILY [facility] Last Admin: 06/20/17 09:19 Dose: 150 mg Sevelamer HCl (Renagel) 800 mg PO TID [facility] Last Admin: 06/20/17 09:24 Dose: 800 mg Sildenafil Citrate (Revatio) 20 mg PO Q8 [facility] Last Admin: 06/20/17 01:28 Dose: 20 mg Sodium Chloride ([place] Nasal [place]) 0 ml NS TID PRN PRN Reason: Nasal congestion - Labs Labs: 06/20/17 06:30 06/20/17 06:30 PT 15.4 SECONDS (9.4-12.5) H 05/31/17 19:20 INR 1.40 (0.93-1.08) H 05/31/17 19:20 APTT 29.6 Seconds (25.1-36.5) 05/31/17 19:20 - Constitutional Appears: No Acute Distress - Eye Exam Eye Exam: Normal appearance. absent: Scleral icterus - ENT Exam ENT Exam: Mucous Membranes Moist - Neck Exam Neck Exam: Normal Inspection - Respiratory Exam Respiratory Exam: Decreased Breath Sounds, Rales, NORMAL BREATHING PATTERN. absent: Respiratory Distress - Cardiovascular Exam Cardiovascular Exam: +S1, +S2 - GI/Abdominal Exam GI & Abdominal Exam: Soft, Normal Bowel Sounds. absent: Guarding, Tenderness, Rebound - Extremities Exam Extremities Exam: Pedal Edema. absent: Calf Tenderness - Neurological Exam Neurological Exam: Alert, Awake, Oriented x3 - Skin Skin Exam: Dry, Warm Assessment and Plan - Assessment and Plan (Free Text) Assessment: Assessment: Elevated LFTs, improving, likely secondary to hepatic congestion Severe pulmonary hypertension Valvular heart disease, status post aortic and mitral valve repair CHF Cholelithiasis, normal CBD Acute renal failure DM Plan: Continue diet as tolerated Continue Protonix to 20mg daily On Lovenox on Solumedrol Continue to trend LFTs on Miralax on Primacor drip Awaiting transfer to [facility] for IV Prostacycline As per cardiology spoke to nursing staff. Seen and discussed with Dr. Fraser. <Karly Fraser V - Last Filed: 06/20/17 23:48> Objective - Vital Signs/Intake and Output Vital Signs (last 24 hours): Temp Pulse Resp BP Pulse Ox 98.6 F 104 H 29 H 143/65 97 06/20/17 20:00 06/20/17 22:35 06/20/17 20:00 06/20/17 20:00 06/20/17 20:00 Intake and Output: 06/20/17 06/21/17 18:59 06:59 Intake Total 1120 100 Output Total 900 Balance 220 100 - Medications Medications: Current Medications Alprazolam (Xanax) 0.25 mg PO BID PRN; Protocol PRN Reason: Anxiety Stop: 06/22/17 18:01 Last Admin: 06/20/17 22:56 Dose: 0.25 mg Atorvastatin Calcium (Lipitor) 40 mg PO DAILY [facility] Last Admin: 06/20/17 09:21 Dose: 40 mg Enoxaparin Sodium (Lovenox) 30 mg SC DAILY [facility] PRN Reason: Protocol Last Admin: 06/20/17 09:21 Dose: 30 mg Fluticasone Propionate (Flonase) 1 actuation NS DAILY [facility] Last Admin: 06/20/17 09:19 Dose: 1 spr Gabapentin (Neurontin) 100 mg PO DAILY [facility] Last Admin: 06/20/17 09:22 Dose: 100 mg Glipizide (Glucotrol) 10 mg PO 0730,1630 [facility] Last Admin: 06/20/17 18:09 Dose: 10 mg Home Med (Home Med) 1 unit PO DAILY [facility] Last Admin: 06/20/17 09:20 Dose: 1 unit Milrinone Lactate/Dextrose (Primacor 20mg/100ml D5w) 100 mls @ 4.297 mls/hr IV .[id number] PRN; Protocol; 0.2 MCG/KG/MIN PRN Reason: TITRATE PER MD ORDER Last Admin: 06/20/17 22:35 Dose: 0.2 mcg/kg/min, 4.297 mls/hr EPOPROSTENOL 1.5 mg/ Sterile (Water) 100 mls @ 3.33 mls/hr IV Q30H [facility] PRN Reason: 0.0092 MCG/KG/MIN Insulin Detemir (Levemir) 10 unit SC HS [facility] Last Admin: 06/20/17 22:03 Dose: 10 unit Insulin Human Lispro (Humalog Low) 0 units SC ACHS [facility] PRN Reason: Protocol Last Admin: 06/20/17 22:03 Dose: Not Given Ipratropium [place] (Atrovent) 0.5 mg IH [id number] [facility] Last Admin: 06/20/17 20:18 Dose: 0.5 mg Levalbuterol HCl (Xopenex) 1.25 mg IH [id number] [facility] Last Admin: 06/20/17 20:18 Dose: 1.25 mg Levalbuterol HCl (Xopenex) 0.63 mg IH [id number] PRN PRN Reason: Shortness of Breath Last Admin: 06/19/17 18:30 Dose: 0.63 mg Methylprednisolone (Solu-Medrol) 20 mg IVP DAILY [facility] Last Admin: 06/20/17 09:24 Dose: 20 mg Atomoxetine Hcl [ (Strattera] 60 Mg) 60 mg PO DAILY [facility] Last Admin: 06/20/17 12:49 Dose: Not Given Nystatin (Nystop Topical Powder) 0 gm TOP DAILY [facility] Last Admin: 06/20/17 09:22 Dose: 1 applic Pantoprazole Sodium (Protonix Ec Tab) 20 mg PO ACB [facility] Last Admin: 06/20/17 09:24 Dose: 20 mg Polyethylene Glycol (Miralax) 17 gm PO DAILY [facility] Last Admin: 06/20/17 09:21 Dose: 17 gm Polysaccharide Iron Complex (Ferrex-150) 150 mg PO DAILY [facility] Last Admin: 06/20/17 09:19 Dose: 150 mg Sevelamer HCl (Renagel) 800 mg PO TID [facility] Last Admin: 06/20/17 09:24 Dose: 800 mg Sildenafil Citrate (Revatio) 20 mg PO Q8 [facility] Last Admin: 06/20/17 22:03 Dose: 20 mg Sodium Chloride ([place] Nasal [place]) 0 ml NS TID PRN PRN Reason: Nasal congestion - Labs Labs: 06/20/17 06:30 06/20/17 06:30 PT 15.4 SECONDS (9.4-12.5) H 05/31/17 19:20 INR 1.40 (0.93-1.08) H 05/31/17 19:20 APTT 29.6 Seconds (25.1-36.5) 05/31/17 19:20 Attending/Attestation - Attestation I have personally seen and examined this patient.: Yes I have fully participated in the care of the patient.: Yes I have reviewed all pertinent clinical information, including history, physical exam and plan: Yes Notes (Text): This is an addendum to GI progress report dictated by Juliana Junior APN.The patient was seen and examined earlier. Medical records, lab studies, imagings were reviewed. Last 24 hours events reviewed. Agreed with the above treatment plan as outlined in Juliana Junior APN's notes the with the addition of the following Hemoglobin stable On Lovenox 30 mg subcutaneous daily abdomen soft no tenderness Awaiting for transfer to him twice a day Follow-up LFTS and a hemoglobin 06/20/17 23:46
--- NOTE | 2017-06-20 11:44 | PN ---
DATE: 06/20/2017 PULMONARY PROGRESS NOTE REASON FOR CONSULTATION AND FOLLOWUP: Cardiac evaluation, severe pulmonary hypertension, coronary artery disease, awaiting to be transferred to [facility]. SUBJECTIVE: Patient denies any chest pain, feels a little better, was on CPAP, now is on nasal cannula oxygen. OBJECTIVE: GENERAL: Not in apparent distress, lying flat. VITAL SIGNS: As follows; temperature afebrile, heart rate is 90, and blood pressure 129/47. HEENT: PERRLA. Extraocular muscles are intact. NECK: Supple. No carotid bruit or thyromegaly. CHEST: Clear to auscultation. HEART: S1 and S2 regular. ABDOMEN: Soft. EXTREMITIES: Clubbing and cyanosis negative. LABORATORY DATA: Blood workup as follows: WBC of 6.9, hemoglobin of 9.9, hematocrit of 28.3, and platelet count of 144,000. Chemistry shows sodium 137, potassium of 3.7, chloride of 100, carbon dioxide 30, anion gap of 10, BUN of 81, and creatinine 1.4. Total protein 5.5, albumin 2.8, albumin/globulin ratio 1. IMPRESSION: Hypokalemia, severe pulmonary hypertension, PA pressure 103 by invasive cath, by noninvasive 151. Preserved left ventricular function, status post mitral valve replacement, essentially right heart failure. RECOMMENDATIONS: Continue Revatio. Continue Primacor. Supplement potassium. Awaiting to be transferred to [facility] for treatment of pulmonary hypertension. Overall, the patient's condition critical. Long-term prognosis is extremely guarded. We will follow with you. Thank you Dr. Booker, for providing us the opportunity in taking care of the patient, Emory Arboleda. Guru Sosa MD
[2017-06-20] MEDS: Milrinone 20mg/100ml D5W 100 ML IV PRN ×2 (14:10→22:35)
--- NOTE | 2017-06-20 18:27 | PN ---
DATE: 06/20/2017 SUBJECTIVE: The patient is seen lying in bed in the ICU. He is on BIPAP. is at bedside. He complains of difficulty breathing. He denies any chest tightness. He denies any pain in any part of the body. He denies any nausea, vomiting. PHYSICAL EXAMINATION: GENERAL: Elderly male lying in bed in the ICU, on BIPAP. VITAL SIGNS: Blood pressure 129/47, heart rate 97, respiratory rate 25, temperature 98.3. HEENT: Normocephalic, atraumatic, positive pallor, no icterus, pupils reactive to light. NECK: Supple, no JVD. LUNGS: Bilateral equal air entry, bilateral rhonchi, no rales appreciated. CARDIAC: S1 and S2, regular rate and rhythm, positive murmur, no rub. ABDOMEN: Obese, distended, soft, nontender, bowel sounds present. EXTREMITIES: 2+ pitting edema of the lower extremities. INTAKE AND OUTPUT: 324/700. LABORATORY DATA: WBC 6, hemoglobin 9.3, hematocrit 28, platelets 144. Sodium 137, potassium 3.7, chloride 100, CO2 of 30, BUN 81, creatinine 1.4, glucose 106, calcium 8.7 and total bili 1.0, AST 27, ALT 33, albumin 2.8, iron 44, ferritin 107. Urinalysis trace protein. Blood cultures no growth. Urine culture no growth. Chest x-ray heterogeneous patchy opacities of the left perihilar region. CURRENT MEDICATIONS: Atrovent, oral iron, Flonase, Glucotrol 10 mg b.i.d., Letairis, Humalog, Levemir, Lipitor 40 mg, Lovenox, MiraLax, Neurontin, Primacor 0.2 mcg/kg/minute, Protonix, Renagel, Revatio 20 mg q. 8 h., Solu-Medrol 20 IV daily, Xanax, Xopenex. ASSESSMENT: 1. Acute kidney injury, largely prerenal azotemia, cardiorenal syndrome in the setting of severe pulmonary hypertension, right-sided failure. 2. Severe pulmonary hypertension. 3. Resolved hyperkalemia. 4. Coronary artery disease, status post coronary artery bypass graft x1, severe aortic stenosis, status post aortic valve replacement, mitral valve repair. 5. Severe anemia. 6. Secondary hyperparathyroidism. 7. Hyperphosphatemia. 8. 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 PLAN 1. Continue Revatio and Letairis. 2. Continue Primacor as per cardiology recommendations for cardiorenal syndrome. 3. Keep O's greater than I's. 4. Continue intermittent Aranesp. 5. Continue respiratory treatments, BIPAP. 6. Monitor potassium. 7. Check phosphorus levels. 8. Hold Renagel since phosphorus was 3.2 yesterday. Case is discussed with at bedside. Case is discussed with ICU staff, the patient is awaiting transfer to [facility] for further treatment of pulmonary hypertension. More than 35 minutes was spent in the care of this critically ill patient. Bryanna Guzman MD
--- NOTE | 2017-06-20 18:57 | PN ---
PULMONARY PROGRESS NOTE DATE: 06/20/2017 REFERRING PHYSICIAN: Arya Booker MD SUBJECTIVE: The patient is lying in the bed, requiring noninvasive ventilation. is at bedside. Gets short of breath, off BiPAP for few hours. No cough. No sputum production. No nausea. No vomiting, diarrhea, leg pain or leg swelling. OBJECTIVE: GENERAL: In no acute distress. VITAL SIGNS: Temperature is 98, heart rate is 99, respiratory rate is 25, blood pressure is 129/47, and pulse ox is 96% on BiPAP. HEENT: Moist mucous membrane. Crowded airway. NECK: Supple. No JVD. LUNGS: Has a few scattered rhonchi. HEART: S1 and S2. ABDOMEN: Soft and nontender. No organomegaly. EXTREMITIES: There is no edema. NEUROLOGIC: Awake, alert, and follow simple commands. MEDICATIONS: He is on Atrovent inhaled q.6 hours, Ferrex 150 mg daily, Flonase one spray each nostril daily, glipizide 10 mg twice a day, Levemir 10 units subcutaneously at bedtime, Lipitor 40 mg daily, Lovenox 30 mg subcutaneously daily, MiraLax 17 g daily, gabapentin 100 mg daily, nasal saline two spray each nostril q.6 hours, Primacor IV drip, Protonix 40 mg daily, Renagel 800 mg three times a day, Revatio 20 mg q.8 hours, Letairis 5 mg daily, Solu-Medrol 20 mg daily, Xanax 0.25 mg twice a day p.r.n., and Xopenex inhaled q.6 hours. LABORATORY DATA: Shows hemoglobin 9.3, hematocrit 28.3, WBC 6.1, and platelet is 144. Sodium 137, potassium 3.7, chloride 100, bicarbonate 30, BUN 81, creatinine 1.4, glucose 106, and calcium 8.7. AST 27, ALT 33, alkaline phosphatase 88, and albumin is 2.8. Microbiology: Blood culture and urine culture, there is no growth. Chest x-ray done yesterday evening shows heterogeneous patchy opacity of the left perihilar region appears more and large compared to previous exam. IMPRESSION AND PLAN: Severe pulmonary hypertension, valvular heart disease, anemia, renal failure, diabetes, pulmonary infiltrate, still awaiting for [facility] transfer, no bed is available. Spoke to Dr. Smith even this morning. Presently, continue Primacor, Revatio, Letairis, supplement oxygen, p.r.n. diuretics, and also continue noninvasive ventilation. Overall poor prognosis. Spoke to the patient's at bedside in detail. I still believe the patient will benefit from IV prostacyclin and also inhaled nitric oxide to help decrease the pulmonary pressure. Critical care time spent more than 35 minutes. Thank you and we will follow with you. Guru Bustos MD
[2017-06-20 20:47] VITALS: TEMP 98.6
[2017-06-20] MEDS: Insulin Detemir 100 units/ml Vial (Levemir) SC SCH (22:03)
[2017-06-20] MEDS ORDERED: EPOPROSTENOL IV SCH (22:30)
[2017-06-20] MEDS ORDERED: WATER FOR INJECTION IV SCH (22:30)
--- NOTE | 2017-06-21 01:28 | PN ---
DATE: ENDOCRINOLOGY FOLLOWUP NOTE LOCATION: In ICU 128, room 2. SUBJECTIVE: This is an 82-year-old male with uncontrolled type 2 insulin requiring diabetes presenting with acute exacerbation of COPD and supervening congestive heart failure, currently on a tapering steroid dosing of Solu-Medrol given now at 20 mg IV piggyback once daily as ordered. His glycemic levels are fluctuating, but improved, and ranged from 230 to 275 mg/dL. LABORATORY DATA: The latest chemistry showed a BUN of 100, sodium 137, potassium of 3.6, chloride of 98, CO2 of 31, glucose 85, and creatinine of 1.7. IMPRESSION AND PLAN: So, at this time, we will continue the same basal and bolus insulin regimen as given with Levemir lowered to 10 units subcutaneous at bedtime daily as ordered. We will continue the glipizide given as 10 mg b.i.d. before meals as ordered. We will also continue the low-dose correction scale using Humalog insulin as given. We will actually discontinue the Humalog given prandially before each meal as ordered. We will follow and advise accordingly. Julienne Mendoza MD
[2017-06-21 02:14] VITALS: BP 147/57; PULSE 112; RESP 34; O2SAT 93
--- NOTE | 2017-06-21 05:56 | PN ---
DATE: SUBJECTIVE: The patient is stable, in no distress. He is still on BiPAP currently, saturating 97%, heart rate in the above 90s and seems to doing good, good urine output. He has no distress. He is alert and awake. PHYSICAL EXAMINATION: VITAL SIGNS: Temperature is 98.6, heart rate 109, blood pressure 143/65, respirations 26, and saturating 97%. HEENT: Normal. NECK: There is JVD. LUNGS: Clear. Good air entry. CARDIOPULMONARY: First sound and second sound normal. Systolic murmur across the aortic area. ABDOMEN: Soft and nontender. EXTREMITIES: Mild edema on the toes and the foot area. NEUROLOGIC: Normal. He is alert, awake and oriented x3. LABORATORY DATA: Shows white count 6.1, hemoglobin 9.3, hematocrit 28.3, and platelets 144. Chemistry; sodium 137, potassium 3.7, chloride 100, bicarbonate 30, BUN 81, and creatinine 1.4. Liver function tests normal. Blood sugar 135. IMPRESSION AND PLAN: 1. Severe pulmonary hypertension, continue current therapy. Discussed with Dr. Bust[facility]. I did spoke to him about taking him to different facility for prostacyclin infusions or to write the order here and if possible to get here to be given to the patient IV prostacyclin. He is still getting Letairis. He is still getting IV Revatio. Paperwork was given to Dr. Bustos to be completed for the other job for pulmonary hypertension. We will continue therapy for now. 2. Congestive heart failure, right-sided, due to pulmonary hypertension and also mild left-sided diastolic dysfunction, seems doing well with current medications, still need IV doxycycline and IV nitro, according to Dr. Bustos, it is intrapulmonary infusion. We will discuss also with him about getting the IV therapy needed. 3. Diabetes type 2, seems to be doing well with insulin. 4. Acute renal failure, resolved. 5. Depression and anxiety: The patient seems anxious to go to different facility. The did also feel anxious to go to different facility. I explained to her and I discussed further with Dr. Bustos about the situation and the importance of either moving the patient to different facility or to [facility] or to get the medicine ready for him here in [facility]. We will discuss further to continue current therapy. Arya Booker MD
[2017-06-21] MEDS ORDERED: EPOPROSTENOL 1.5 MG VIAL IV SCH (10:00)
--- NOTE | 2017-06-21 13:02 | PN ---
DATE: LOCATION: ICU 128, room 2. SUBJECTIVE: This is an 82-year-old male with recent uncontrolled type 2 insulin requiring diabetes with supervening marked hyperglycemic accelerations related to the intercurrent IV steroid therapy as given for acute exacerbation of COPD as noted. His glycemic levels are fluctuating, but improved and the latest glucose levels have ranged from 135 mg/dL to 210 mg/dL. His latest chemistry showed BUN of 81, sodium of 137, potassium of 3.7, chloride of 100, CO2 of 30, glucose of 106, and creatinine of 1.4. So at this time, we will continue the same basal bolus insulin regimen as ordered with Levemir given as 10 units subcu at bedtime daily as ordered with Glucotrol given as 10 mg p.o. b.i.d. before meals as given. We will hold off the basal insulin because of episodic bouts of hypoglycemia there after. We will follow. Julienne Mendoza MD
--- NOTE | 2017-06-23 17:23 | PQF SEPSIS ---
06/23/17 Dr. Booker, ID portrait consultant documents "severe sepsis due to HCAP" on consult of 06/12 and on progress notes of 06/12, 06/14, 06/15, 06/16, and 06/17. Do you agree, disagree, undetermined with severe sepsis due to HCAP? Thank you. Clarification of your documentation is requested to better reflect the severity of illness and intensity of treatment of your patient. Indicators present [] Temp < 96.8 or > 100.4 [] WBC count > 12,000/mm3 or <000/mm3 or 10% immature neutrophils [] Heart Rate > 90 [] Respiratory Rate > 20 [] Fever or hypothermia [] Chills [] Positive blood cultures [] Hypotension [] Metabolic acidosis (Elevated lactate level, anion gap or reduced blood pH) [] Acute confusion /Altered Mental Status [] Shock [] Other: [] Location in the medical record that reflects the above clinical findings: [] Treatment Provided: [] PHYSICIAN'S RESPONSE Based on your medical judgment of the clinical indicators outlined above, are you treating this patient for a known or suspected: [] Sepsis / Septicemia Please specify organism if known [] [] SIRS (Systemic Inflammatory Response Syndrome) [] Severe Sepsis (Sepsis with Associated Organ Dysfunction) [] Fever of Unknown Origin [] Other, please indicate: [] [] If Unable to Determine, please check the box, sign and date. Present On Admission (POA) Indicator: [] Present at the time of admission [] Not present at the time of admission [] Clinically Undetermined In responding to this query, please exercise your independent professional judgment. The fact that a question is asked does not imply that any particular answer is desired or expected. Thank you for your clarification on this documentation. If you have any questions please call:[ ] * Thank you, [ ] drop wire builder AMALIA
--- NOTE | 2017-06-24 02:09 | DS ---
HISTORY OF PRESENT ILLNESS: The patient was admitted with respiratory failure, was on BiPAP. He was given IV milrinone. The patient was on Telemetry who is doing okay. Awaiting for blood pressure, pulmonary hypertension meds on Telemetry. He got respiratory distress, transferred to the unit. He had D-dimer positive. CT of the chest shows a large pulmonary artery, shows also congestive heart failure changes, shows also some bilateral pleural effusion consistent with congestive heart failure. Transferred to the unit who is maintained on milrinone, IV Lasix and BiPAP machine. The patient on and off getting into respiratory distress , BiPAP adjusted to 12/5, and he seems doing well with that developed renal failure overtime. Creatinine went up to 3.4 probably according to the Nephrology, prerenal. The patient otherwise was holding Lasix. His creatinine went down to normal range, went down from 3.4 to 1.4 on discharge. His breathing was stable, saturating 97% on BiPAP and transferred to [facility] for IV. Continues infusion of prostacyclin in addition to nitro infusion too. He has no other complaint. No nausea. No vomiting, stable. Discussed with family, his and son about his conditions. PHYSICAL EXAMINATION: VITAL SIGNS: His temperature 98.6, heart rate 112, blood pressure 147/57, respiratory rate 26 and saturation 95%. HEAD AND NECK: Normal. There is JVD. CHEST: Few basal crackles, but otherwise clear lung. ABDOMEN: Soft, nontender. EXTREMITIES: Very small edema in both feet. NEUROLOGIC: Normal. CARDIAC: First sound and second sound normal. There is systolic murmur across the aortic area. LABORATORY DATA: Hemoglobin runs 9 to 9.3, hematocrit 28.3, white count 6.1 and platelets 144. Chemistry; sodium 137, potassium 3.7, chloride 100, bicarbonate 30, BUN 81, creatinine 1.4 and his calcium 8.7. Blood sugar 135. DISCHARGE DIAGNOSES: 1. Severe pulmonary hypertension. 2. Congestive heart failure, more right-sided then left. 3. He does have component of left diastolic heart failure; at one point the Linden-Jim catheter shows pulmonary capillary pressure, the wedge pressure was in the low 30s; however, overdiuresis put him into renal failure. 4. Acute renal failure, resolved. 5. Chronic obstructive pulmonary disease. 6. Chronic anxiety and depression. 7. Diabetes insulin dependent. At one point with Solu-Medrol, the sugar went up into 400, 300, now it is controlled in the 150 to 215. PLAN: Discharge the patient home, followup clinically. Discharge diagnoses as above. MEDICATIONS: He got Revatio 20 mg, I believe, it was 3 times a day. He is getting magnesium oxide 400 b.i.d. He was getting IV milrinone. He was getting nebulizer treatment, steroid, Solu-Medrol taper down to 30 q.12 hours, Protonix IV, Lovenox 40 subcutaneous daily, Lipitor 40 at bedtime, Strattera 60 mg daily and Wellbutrin 75 mg b.i.d. The patient also off Lasix for now and should follow up at [facility] by the Investor Relations Associate for IV infusion of prostacyclin and nitro infusion. Continue current therapy. Arya Booker MD
--- NOTE | 2017-06-25 13:38 | PQF SEPSIS ---
06/25/17 Dr. Booker, ID php consultant documents "severe sepsis due to HCAP" on consult of 06/12 and on progress notes of 06/12, 06/14, 06/15, 06/16, and 06/17. Do you agree, disagree, undetermined with severe sepsis due to HCAP? (You signed the previous query form but no answer is seen.) Thank you. Clarification of your documentation is requested to better reflect the severity of illness and intensity of treatment of your patient. Indicators present [x] Temp < 96.8 or > 100.4 [] WBC count > 12,000/mm3 or <000/mm3 or 10% immature neutrophils [x] Heart Rate > 90 [] Respiratory Rate > 20 [] Fever or hypothermia [] Chills [] Positive blood cultures [] Hypotension [] Metabolic acidosis (Elevated lactate level, anion gap or reduced blood pH) [] Acute confusion /Altered Mental Status [] Shock [] Other: [] Location in the medical record that reflects the above clinical findings: [] Treatment Provided: [] PHYSICIAN'S RESPONSE Based on your medical judgment of the clinical indicators outlined above, are you treating this patient for a known or suspected: [] Sepsis / Septicemia Please specify organism if known [] [x] SIRS (Systemic Inflammatory Response Syndrome) [] Severe Sepsis (Sepsis with Associated Organ Dysfunction) [] Fever of Unknown Origin [] Other, please indicate: [] [] If Unable to Determine, please check the box, sign and date. Present On Admission (POA) Indicator: [x] Present at the time of admission [] Not present at the time of admission [] Clinically Undetermined In responding to this query, please exercise your independent professional judgment. The fact that a question is asked does not imply that any particular answer is desired or expected. Thank you for your clarification on this documentation. If you have any questions please call:[ ] * Thank you, [ ] hotel general manager AMALIA
== END 2017-06-21 01:30 | disposition short-term general hospital (02) | DRG 286 ==
LOC: ED 19:07 → ERH 20:28 → ICU 22:33 → 2RSO 06-04 01:32 → ICU 06-12 00:32
PROVIDERS: ADMIT Internal Medicine; ATTEND Internal Medicine
PROC: 4A023N6 Measurement of Cardiac Sampling and Pressure, Right Heart, Percutaneous Approach (ICD-10-PCS; principal; 2017-06-02)
PROC: B2111ZZ Fluoroscopy of Multiple Coronary Arteries using Low Osmolar Contrast (ICD-10-PCS; 2017-06-02)
PROC: B2141ZZ Fluoroscopy of Right Heart using Low Osmolar Contrast (ICD-10-PCS; 2017-06-02)
DX: I13.0 Hypertensive heart and chronic kidney disease with heart failure and stage 1 through stage 4 chronic kidney disease, or unspecified chronic kidney disease (principal); I50.43 Acute on chronic combined systolic (congestive) and diastolic (congestive) heart failure; J96.01 Acute respiratory failure with hypoxia; N17.9 Acute kidney failure, unspecified; E11.21 Type 2 diabetes mellitus with diabetic nephropathy; E83.39 Other disorders of phosphorus metabolism; I27.29 Other secondary pulmonary hypertension; E11.42 Type 2 diabetes mellitus with diabetic polyneuropathy; K76.1 Chronic passive congestion of liver; R65.10 Systemic inflammatory response syndrome (SIRS) of non-infectious origin without acute organ dysfunction; E87.1 Hypo-osmolality and hyponatremia; N25.81 Secondary hyperparathyroidism of renal origin; J44.0 Chronic obstructive pulmonary disease with (acute) lower respiratory infection; J44.1 Chronic obstructive pulmonary disease with (acute) exacerbation; E87.5 Hyperkalemia; I42.9 Cardiomyopathy, unspecified; I35.1 Nonrheumatic aortic (valve) insufficiency; I50.82 Biventricular heart failure; Y95 Nosocomial condition; N18.2 Chronic kidney disease, stage 2 (mild); E78.5 Hyperlipidemia, unspecified; E11.22 Type 2 diabetes mellitus with diabetic chronic kidney disease; E11.649 Type 2 diabetes mellitus with hypoglycemia without coma; E11.65 Type 2 diabetes mellitus with hyperglycemia; D63.1 Anemia in chronic kidney disease; E78.00 Pure hypercholesterolemia, unspecified; F32.89 Other specified depressive episodes; F41.9 Anxiety disorder, unspecified; F51.04 Psychophysiologic insomnia; F90.9 Attention-deficit hyperactivity disorder, unspecified type; G47.33 Obstructive sleep apnea (adult) (pediatric); G89.29 Other chronic pain; H40.9 Unspecified glaucoma; I25.10 Atherosclerotic heart disease of native coronary artery without angina pectoris; I34.0 Nonrheumatic mitral (valve) insufficiency; I35.0 Nonrheumatic aortic (valve) stenosis; K21.9 Gastro-esophageal reflux disease without esophagitis; K59.00 Constipation, unspecified; K80.20 Calculus of gallbladder without cholecystitis without obstruction; L08.9 Local infection of the skin and subcutaneous tissue, unspecified; N40.1 Benign prostatic hyperplasia with lower urinary tract symptoms; T38.0X5A Adverse effect of glucocorticoids and synthetic analogues, initial encounter; T50.1X5A Adverse effect of loop [high-ceiling] diuretics, initial encounter; Z79.4 Long term (current) use of insulin; Z79.899 Other long term (current) drug therapy; Z85.46 Personal history of malignant neoplasm of prostate; Z86.73 Personal history of transient ischemic attack (TIA), and cerebral infarction without residual deficits; Z87.891 Personal history of nicotine dependence; Z95.1 Presence of aortocoronary bypass graft; Z95.3 Presence of xenogenic heart valve; Z98.84 Bariatric surgery status